=== PATIENT | male | born 1935 | race Caucasian/White ===

== ENCOUNTER → 2016-12-06 | Outpatient (CLI) | payer MEDICARE, OTHER ==
[~2016-12-06] MED LIST: ATEN-100 PO; GLYB1TAB51 PO; METF-324 PO; METO10TA PO; PROT40TA PO; [UNRECOGNIZED DRUG - OTHER] PO
[2016-12-06 09:32] LABS: HEMATOCRIT 41.7 % (39.0-51.0); MEAN CELL VOLUME 91.6 FL (80.0-100.0); MEAN CORPUSCULAR HEMOGLOBIN 30.3 PG (27.0-34.0); MEAN CORPUSCULAR HGB CONC 33.1 % (32.0-36.0); PLATELET COUNT 124 TH/MM3 (150-450); RED BLOOD COUNT 4.55 MIL/MM3 (4.50-5.90); RED CELL DISTRIBUTION WIDTH 14.6 % (11.6-17.2); REVIEW FLAG FINAL; WHITE BLOOD COUNT 6.5 TH/MM3 (4.0-11.0)
[2016-12-06 10:01] LABS: MICRO ALBUMIN RANDOM URINE RAW 21.2 MG/L (0.0-30.0)
[2016-12-06 10:17] LABS: ALKALINE PHOSPHATASE 78 U/L (45-117); ALT (GPT) 40 U/L (12-78); ANION GAP 8 MEQ/L (5-15); AST (GOT) 28 U/L (15-37); BICARBONATE 29.3 MEQ/L (21.0-32.0); BLOOD UREA NITROGEN 16 MG/DL (7-18); CHLORIDE 99 MEQ/L (98-107); GLOMERULAR FILTRATION RATE 53 ML/MIN (>89); GLUCOSE,FASTING 234 MG/DL (74-99); HDL CHOLESTEROL 50.7 MG/DL (40.0-60.0); LDL CHOLESTEROL 84 MG/DL (0-99); POTASSIUM 4.5 MEQ/L (3.5-5.1); SODIUM (NA) 136 MEQ/L (136-145); TOTAL BILIRUBIN ADULT 0.9 MG/DL (0.2-1.0)
[2016-12-06 16:30] LABS: HEMOGLOBIN A1a 1.1 %; HEMOGLOBIN Ao 76.6 %
== END ==
LOC: PLAB 06:36
PROVIDERS: ATTEND Internal Medicine
DX: E11.65 Type 2 diabetes mellitus with hyperglycemia (principal); I10 Essential (primary) hypertension; E78.5 Hyperlipidemia, unspecified
CPT/HCPCS: 36415; 80053; 80061; 82043; 83036; 85027

== ENCOUNTER → 2017-02-02 | Outpatient (CLI) | payer MEDICARE, OTHER ==
[2017-02-02 09:24] LABS: AUTOMATED NEUTROPHIL # 3.2 TH/MM3 (1.8-7.7); BASOPHIL # 0.1 TH/MM3 (0-0.2); BASOPHIL % 0.9 % (0.0-2.0); EOSINOPHIL # 0.2 TH/MM3 (0-0.4); EOSINOPHIL % 3.1 % (0.0-4.0); HEMATOCRIT 41.4 % (39.0-51.0); LYMPH % 31.7 % (9.0-44.0); LYMPHOCYTE # 1.9 TH/MM3 (1.0-4.8); MEAN CELL VOLUME 90.3 FL (80.0-100.0); MEAN CORPUSCULAR HEMOGLOBIN 29.5 PG (27.0-34.0); MEAN CORPUSCULAR HGB CONC 32.7 % (32.0-36.0); MONO % 11.1 % (0.0-8.0); NEUT % 53.2 % (16.0-70.0); PLATELET COUNT 97 TH/MM3 (150-450); RED BLOOD COUNT 4.59 MIL/MM3 (4.50-5.90); RED CELL DISTRIBUTION WIDTH 13.9 % (11.6-17.2); WHITE BLOOD COUNT 5.9 TH/MM3 (4.0-11.0)
[2017-02-02 09:26] LABS: HEMO FLAGS AUTO DIFF
[2017-02-02 10:12] LABS: PLATELET ESTIMATE SMEAR LOW (NORMAL); PLATELET MORPHOLOGY NORMAL (NORMAL); SCAN/DIFF AUTO DIFF CONFIRMED
== END ==
LOC: PLAB 07:24
PROVIDERS: ATTEND Radiology Radiation Oncology
DX: C61 Malignant neoplasm of prostate (principal)
CPT/HCPCS: 36415; 84153; 85025

== ENCOUNTER → 2017-03-23 | Outpatient (CLI) | payer MEDICARE, OTHER ==
[2017-03-23 16:54] LABS: AUTOMATED NEUTROPHIL # 4.6 TH/MM3 (1.8-7.7); BASOPHIL # 0.1 TH/MM3 (0-0.2); BASOPHIL % 0.9 % (0.0-2.0); EOSINOPHIL # 0.1 TH/MM3 (0-0.4); EOSINOPHIL % 1.3 % (0.0-4.0); HEMATOCRIT 37.6 % (39.0-51.0); HEMO FLAGS DIFF FINAL; LYMPH % 21.6 % (9.0-44.0); LYMPHOCYTE # 1.5 TH/MM3 (1.0-4.8); MEAN CELL VOLUME 92.1 FL (80.0-100.0); MEAN CORPUSCULAR HEMOGLOBIN 29.6 PG (27.0-34.0); MEAN CORPUSCULAR HGB CONC 32.1 % (32.0-36.0); NEUT % 65.2 % (16.0-70.0); PLATELET COUNT 118 TH/MM3 (150-450); RED BLOOD COUNT 4.08 MIL/MM3 (4.50-5.90); RED CELL DISTRIBUTION WIDTH 14.3 % (11.6-17.2); WHITE BLOOD COUNT 7.1 TH/MM3 (4.0-11.0)
== END ==
LOC: PLAB 14:29
PROVIDERS: ATTEND Radiology Radiation Oncology
DX: C61 Malignant neoplasm of prostate (principal)
CPT/HCPCS: 36415; 85025

== ENCOUNTER → 2017-04-04 | Outpatient (CLI) | payer MEDICARE, OTHER ==
[2017-04-04 17:07] LABS: AUTOMATED NEUTROPHIL # 3.3 TH/MM3 (1.8-7.7); BASOPHIL % 0.6 % (0.0-2.0); EOSINOPHIL # 0.1 TH/MM3 (0-0.4); EOSINOPHIL % 1.4 % (0.0-4.0); HEMO FLAGS DIFF FINAL; LYMPH % 24.3 % (9.0-44.0); LYMPHOCYTE # 1.3 TH/MM3 (1.0-4.8); MEAN CELL VOLUME 91.2 FL (80.0-100.0); MEAN CORPUSCULAR HEMOGLOBIN 29.8 PG (27.0-34.0); MEAN CORPUSCULAR HGB CONC 32.6 % (32.0-36.0); MONO % 11.4 % (0.0-8.0); NEUT % 62.3 % (16.0-70.0); PLATELET COUNT 113 TH/MM3 (150-450); RED BLOOD COUNT 3.95 MIL/MM3 (4.50-5.90); RED CELL DISTRIBUTION WIDTH 14.1 % (11.6-17.2); WHITE BLOOD COUNT 5.3 TH/MM3 (4.0-11.0)
== END ==
LOC: PLAB 14:27
PROVIDERS: ATTEND Radiology Radiation Oncology
DX: C61 Malignant neoplasm of prostate (principal)
CPT/HCPCS: 36415; 85025

== ENCOUNTER → 2017-04-18 | Outpatient (CLI) | payer MEDICARE, OTHER ==
[2017-04-18 17:23] LABS: AUTOMATED NEUTROPHIL # 3.6 TH/MM3 (1.8-7.7); BASOPHIL % 0.4 % (0.0-2.0); EOSINOPHIL # 0.1 TH/MM3 (0-0.4); EOSINOPHIL % 1.4 % (0.0-4.0); HEMATOCRIT 35.9 % (39.0-51.0); HEMO FLAGS DIFF FINAL; LYMPH % 20.2 % (9.0-44.0); LYMPHOCYTE # 1.1 TH/MM3 (1.0-4.8); MEAN CELL VOLUME 91.3 FL (80.0-100.0); MEAN CORPUSCULAR HEMOGLOBIN 30.9 PG (27.0-34.0); MEAN CORPUSCULAR HGB CONC 33.8 % (32.0-36.0); MONO % 12.3 % (0.0-8.0); NEUT % 65.7 % (16.0-70.0); PLATELET COUNT 136 TH/MM3 (150-450); RED BLOOD COUNT 3.94 MIL/MM3 (4.50-5.90); RED CELL DISTRIBUTION WIDTH 14.7 % (11.6-17.2); WHITE BLOOD COUNT 5.5 TH/MM3 (4.0-11.0)
== END ==
LOC: PLAB 14:59
PROVIDERS: ATTEND Radiology Radiation Oncology
DX: C61 Malignant neoplasm of prostate (principal)
CPT/HCPCS: 36415; 85025

== ENCOUNTER → 2017-05-03 | Outpatient (CLI) | payer MEDICARE, OTHER ==
[2017-05-03 17:37] LABS: AUTOMATED NEUTROPHIL # 2.8 TH/MM3 (1.8-7.7); BASOPHIL % 0.6 % (0.0-2.0); EOSINOPHIL # 0.1 TH/MM3 (0-0.4); EOSINOPHIL % 1.7 % (0.0-4.0); HEMATOCRIT 37.1 % (39.0-51.0); HEMO FLAGS DIFF FINAL; LYMPH % 22.5 % (9.0-44.0); MEAN CELL VOLUME 91.4 FL (80.0-100.0); MEAN CORPUSCULAR HEMOGLOBIN 30.1 PG (27.0-34.0); MONO % 11.6 % (0.0-8.0); NEUT % 63.6 % (16.0-70.0); PLATELET COUNT 130 TH/MM3 (150-450); RED BLOOD COUNT 4.06 MIL/MM3 (4.50-5.90); RED CELL DISTRIBUTION WIDTH 14.5 % (11.6-17.2); WHITE BLOOD COUNT 4.5 TH/MM3 (4.0-11.0)
== END ==
LOC: PLAB 14:19
PROVIDERS: ATTEND Radiology Radiation Oncology
DX: C61 Malignant neoplasm of prostate (principal); Z01.818 Encounter for other preprocedural examination
CPT/HCPCS: 36415; 85025

== ENCOUNTER → 2017-08-11 | Outpatient (CLI) | payer MEDICARE, OTHER | LOC: PLAB 06:50 | PROVIDERS: ATTEND Radiology Radiation Oncology | DX: C61 Malignant neoplasm of prostate (principal) | CPT/HCPCS: 36415; 84153 ==

== ENCOUNTER → 2017-12-01 | Outpatient (CLI) | payer MEDICARE, OTHER ==
[2017-12-01 10:19] LABS: HEMOGLOBIN 11.8 GM/DL (13.0-17.0); MEAN CELL VOLUME 91.1 FL (80.0-100.0); MEAN CORPUSCULAR HEMOGLOBIN 30.6 PG (27.0-34.0); MEAN CORPUSCULAR HGB CONC 33.6 % (32.0-36.0); PLATELET COUNT 137 TH/MM3 (150-450); RED BLOOD COUNT 3.85 MIL/MM3 (4.50-5.90); RED CELL DISTRIBUTION WIDTH 14.3 % (11.6-17.2); WHITE BLOOD COUNT 4.5 TH/MM3 (4.0-11.0)
[2017-12-01 10:21] LABS: BILIRUBIN, URINE NEG (NEG); BLOOD, URINE NEG (NEG); GLUCOSE,URINE 1000 mg/dL (NEG); KETONE, URINE NEG (NEG); NITRITE,URINE NEG (NEG); PH, URINE 5.5 (5.0-8.5); URINE COLOR YELLOW (YELLW/STRAW); URINE LEUKOCYTE ESTERASE NEG (NEG)
[2017-12-01 10:33] LABS: ALBUMIN 3.5 GM/DL (3.4-5.0); AST (GOT) 24 U/L (15-37); BICARBONATE 28.5 MEQ/L (21.0-32.0); BLOOD UREA NITROGEN 15 MG/DL (7-18); CALCIUM 9.8 MG/DL (8.5-10.1); CHLORIDE 100 MEQ/L (98-107); CHOLESTEROL 146 MG/DL (120-200); CREATININE 1.06 MG/DL (0.60-1.30); GLOMERULAR FILTRATION RATE 67 ML/MIN (>89); GLUCOSE,FASTING 226 MG/DL (74-99); SODIUM (NA) 135 MEQ/L (136-145)
[2017-12-01 10:39] LABS: ALKALINE PHOSPHATASE 68 U/L (45-117); ALT (GPT) 20 U/L (12-78); CHOLESTEROL/ HDL RATIO 3.63 RATIO; HDL CHOLESTEROL 40.2 MG/DL (40.0-60.0); LDL CHOLESTEROL 77 MG/DL (0-99); LDL CHOLESTEROL DIRECT 95 MG/DL (0-99); TOTAL BILIRUBIN ADULT 0.6 MG/DL (0.2-1.0); TOTAL PROTEIN 7.9 GM/DL (6.4-8.2); TRIGLYCERIDES 143 MG/DL (42-150)
[2017-12-01 16:34] LABS: HEMOGLOBIN A1C 9.4 % (4.3-6.0)
== END ==
LOC: PLAB 07:12
PROVIDERS: ATTEND Internal Medicine
DX: E11.65 Type 2 diabetes mellitus with hyperglycemia (principal); I10 Essential (primary) hypertension; Z13.9 Encounter for screening, unspecified
CPT/HCPCS: 36415; 80053; 80061; 81001; 82043; 83036; 83721; 85027

== ENCOUNTER 2018-01-06 16:24 | Emergency (ER) | payer MEDICARE, OTHER ==
[~2018-01-06] VITALS: Ht 182.9 cm; Wt 88.0 kg
[2018-01-06 16:32] VITALS: BP 124/57; PULSE 81; RESP 17; TEMP 98.6; O2SAT 95
--- NOTE | 2018-01-06 16:45 | PD ---
HPI Chief Complaint: Pain: Acute or Chronic Time Seen by Provider: 16:40 Travel History International Travel<30 days: No Contact w/Intl Traveler<30days: No Traveled to known affect area: No History of Present Illness HPI 82-year-old male presents to emergency department for evaluation of right rib pain persisting after a fall that occurred 2 weeks ago. Patient is followed up with his primary care provider and identified a ninth rib fracture. He denies any new injury. No hemoptysis. No shortness of breath. Pain is worse when he lies down. He states that the pain medication his physician gave him does work however he is unable to sleep at night. He has no other symptoms to report. PFSH Past Medical History Arthritis: No Autoimmune Disease: No Cancer: No Cardiovascular Problems: No High Cholesterol: No Chemotherapy: Yes Diabetes: Yes Patient Takes Glucophage: Yes Diminished Hearing: No Endocrine: No GERD: Yes Genitourinary: No Hiatal Hernia: Yes Immune Disorder: No Musculoskeletal: No Neurologic: No Psychiatric: No Reproductive: No Respiratory: No Pneumonia: Yes Thyroid Disease: No Ulcer: No Past Surgical History Abdominal Surgery: No Cardiac Surgery: No Ear Surgery: No Endocrine Surgery: No Eye Surgery: No Genitourinary Surgery: No Gynecologic Surgery: No Oral Surgery: No Thoracic Surgery: No Other Surgery: Yes Social History Alcohol Use: No Tobacco Use: No Substance Use: No Allergies-Medications (Allergen,Severity, Reaction): Coded Allergies: No Known Allergies (Unverified Adverse Reaction, Unknown, 01/06/18) Reported Meds & Prescriptions Reported Meds & Active Scripts Active Reported Atenolol 25 Mg Tab 25 Mg PO DAILY Protonix (Pantoprazole Sodium) 40 Mg Tab 40 Mg PO DAILY Actos (Pioglitazone HCl) 45 Mg Tab 45 Mg PO DAILY Januvia (Sitagliptin Phosphate) 100 Mg Tab 100 Mg PO DAILY Metformin (Metformin HCl) 1,000 Mg Tab 1,000 Mg PO BIDPC Review of Systems Except as stated in HPI: all other systems reviewed are Neg Physical Exam Narrative GENERAL: Well-nourished, well-developed elderly male patient in no acute distress SKIN: Focused skin assessment warm/dry. HEAD: Normocephalic. EYES: No scleral icterus. No injection or drainage. NECK: Supple, trachea midline. No JVD or lymphadenopathy. CARDIOVASCULAR: Regular rate and rhythm RESPIRATORY: Breath sounds equal bilaterally. No accessory muscle use. Diminished. Pain with deep inspiration. Tenderness elicited palpation over the right lateral rib cage. No crepitus. No obvious deformities. GASTROINTESTINAL: Abdomen soft, non-tender, nondistended. MUSCULOSKELETAL: No cyanosis, or edema. BACK: Nontender without obvious deformity. No CVA tenderness. Data Data Last Documented VS Vital Signs Date Time Temp Pulse Resp B/P (MAP) Pulse Ox O2 Delivery O2 Flow Rate FiO2 01/06/18 16:32 98.6 81 17 124/57 (79) 95 Orders Orders Ketorolac Inj (Toradol Inj) (01/06/18 17:00) Orphenadrine Inj (Norflex Inj) (01/06/18 17:00) Ed Discharge Order (01/06/18 17:11) [facility] Medical Decision Making Medical Screen Exam Complete: Yes Emergency Medical Condition: Yes Medical Record Reviewed: Yes Differential Diagnosis Rib fracture versus contusion versus pleuritic pain versus costochondritis Narrative Course 82-year-old male presents to [facility] department for evaluation of pain following a right rib fracture that occurred 2 weeks ago following a fall. I have reviewed the x-ray imaging that was done a poor warning itching. He does have the report with him. Patient has no new injury he is just requested something additional for pain. Pain control is provided. He is discharged home. I've encouraged him to continue pain control as already prescribed. He agrees to return immediately with any acute worsening symptoms. Diagnosis Primary Impression: Right rib fracture Qualified Codes: S22.31XA - Fracture of one rib, right side, initial encounter for closed fracture Referrals: Primary Care Physician Patient Instructions: General Instructions, Rib Fracture (ED) Additional Instructions: Is important that you take deep breaths and cough Follow-up with a primary care provider Continue pain control as already prescribed Return immediately with any acute worsening of symptoms Med/Other Pt SpecificInfo: No Change to Meds Disposition: 01 DISCHARGE HOME Condition: Stable MistryBrandon huttonshabbir HOWARD Jan 06, 2018 16:45
[2018-01-06] MEDS ORDERED: METF1000 PO (16:46)
[2018-01-06] MEDS ORDERED: ACTO45TA15 PO (16:46)
[2018-01-06] MEDS ORDERED: PROT40TA PO (16:46)
[2018-01-06] MEDS ORDERED: SITA1TAB2 PO (16:46)
[2018-01-06] MEDS ORDERED: ATEN25TA PO (16:46)
[2018-01-06] MEDS ORDERED: KETOROLAC TROMETHAMINE 60 MG/2 ML (IM) VIAL IM ONE (17:00)
[2018-01-06] MEDS ORDERED: ORPHENADRINE INJ 60 MG/2 ML AMP IM ONE (17:00)
== END 2018-01-06 17:30 | disposition home or self-care (01) ==
LOC: PHEFT 16:24
DX: S22.31XA Fracture of one rib, right side, initial encounter for closed fracture (principal); E11.9 Type 2 diabetes mellitus without complications; K21.9 Gastro-esophageal reflux disease without esophagitis; Z79.84 Long term (current) use of oral hypoglycemic drugs; Z87.39 Personal history of other diseases of the musculoskeletal system and connective tissue; W19.XXXA Unspecified fall, initial encounter
CPT/HCPCS: 96372; 99284; J1885; J2360

== ENCOUNTER → 2018-02-13 | Outpatient (CLI) | payer MEDICARE, OTHER ==
[~2018-02-13] MED LIST changes: +ACTO45TA15 PO; -ATEN-100 PO; +ATEN25TA PO; -GLYB1TAB51 PO; -METF-324 PO; +METF1000 PO; -METO10TA PO; +SITA1TAB2 PO; -[UNRECOGNIZED DRUG - OTHER] PO
== END ==
LOC: PLAB 14:07
DX: C61 Malignant neoplasm of prostate (principal)
CPT/HCPCS: 36415; 84153

== ENCOUNTER 2018-08-02 03:07 | Inpatient (IN) ==
[2018-08-02 03:46] LABS: Baso # (Auto) 0.1 th/mm3 (0.0-0.2); Baso % (Auto) 2.6 % (0.0-2.0); Eos # (Auto) 0.1 th/mm3 (0.0-0.4); Eos % (Auto) 1.3 % (0.0-4.0); Hematocrit 21.9 % (39.0-51.0); Hemoglobin 7.1 gm/dL (13.0-17.0); Lymph # (Auto) 1.1 th/mm3 (1.0-4.8); Lymph % (Auto) 18.7 % (9.0-44.0); Mean Corpuscular HGB Conc 32.5 % (32.0-36.0); Mean Corpuscular Volume 83.2 fL (80.0-100.0); Mono # (Auto) 0.6 th/mm3 (0.0-0.9); Mono % (Auto) 10.6 % (0.0-8.0); Neut # (Auto) 3.8 th/mm3 (1.8-7.7); Neut % (Auto) 66.8 % (16.0-70.0); Red Blood Count 2.63 mil/mm3 (4.50-5.90); White Blood Count 5.7 th/mm3 (4.0-11.0)
[2018-08-02 03:50] LABS: Platelet Count 7 th/mm3 (150-450)
[2018-08-02 03:53] LABS: Activated Partial Thrombo Time 24.3 sec (24.3-30.1); INR 1.2 Ratio; Prothrombin Time 12.1 sec (9.8-11.6)
[2018-08-02] MEDS ORDERED: Sodium Chlor 0.9% Inj 250 ML IV.SIG SCH ×2 (04:00)
[2018-08-02] MEDS ORDERED: Pantoprazole Inj 40 MG Vial IV.PUSH ONE (04:01)
[2018-08-02 04:06] LABS: Baso % (Auto) 0.5 % (0.0-2.0); Eos # (Auto) 0.1 th/mm3 (0.0-0.4); Hematocrit 21.3 % (39.0-51.0); Hemoglobin 7.1 gm/dL (13.0-17.0); Lymph # (Auto) 1.2 th/mm3 (1.0-4.8); Lymph % (Auto) 17.8 % (9.0-44.0); Mean Corpuscular HGB Conc 33.3 % (32.0-36.0); Mean Corpuscular Hemoglobin 27.8 pg (27.0-34.0); Mean Corpuscular Volume 83.4 fL (80.0-100.0); Mono # (Auto) 0.8 th/mm3 (0.0-0.9); Mono % (Auto) 11.6 % (0.0-8.0); Neut # (Auto) 4.6 th/mm3 (1.8-7.7); Neut % (Auto) 69.1 % (16.0-70.0); Platelet Count 3 th/mm3 (150-450); Red Blood Count 2.55 mil/mm3 (4.50-5.90); Red Cell Distribution Width 21.2 % (11.6-17.2)
--- NOTE | 2018-08-02 04:07 | ED ---
HPI General Chief complaint: GI Bleed Stated complaint: bleeding Time Seen by Provider: 08/02/18 03:11 History of Present Illness HPI narrative: Patient 83-year-old male presents emergency department for bright red blood per rectum for the past few days. Patient states is never happened to him before. Denies ever having a colonoscopy. Denies any blood thinner use, specifically denied any Xarelto or Pradaxa Eliquis heparin Lovenox or warfarin use. Further history the patient recently went to his primary care physician for checkup had blood work which showed several abnormalities and according to him "was referred to 3 other physicians". Patient fairly convoluted in his history, he cannot tell me what special to these 3 physicians are. He does also has a history of prostate cancer and had been on testosterone suppression medications for this in the past but has not been on them since April according to him. Denies a history of TTP or ITP. Symptoms severe, for the past few days, associated signs symptoms in context as above. Related Data Home Medications Medication Instructions Recorded Confirmed atenolol 25 mg PO DAILY 08/02/18 08/02/18 chlorpheniramine maleate 4 mg PO Q4H 08/02/18 08/02/18 [Chlor-Trimeton] metformin 1,000 mg PO BID 08/02/18 08/02/18 pantoprazole [Protonix] 40 mg PO DAILY 08/02/18 08/02/18 pioglitazone [Actos] 45 mg PO DAILY 08/02/18 08/02/18 sitagliptin [Januvia] 100 mg PO DAILY 08/02/18 08/02/18 tamsulosin 0.4 mg PO DAILY 08/02/18 08/02/18 Allergies Allergy/AdvReac Type Severity Reaction Status Date / Time No Known Allergies Allergy Verified 08/02/18 03:15 Review of Systems ROS: all other systems reviewed are negative [facility] Medical History Medical History Diabetes mellitus (Acute) Psoriasis (Acute) Tibia/fibula fracture (Acute) Social History Social History Substance History: No History of Abuse Second Hand Smoke Exposure: No Smoking Status: Never smoker How Often Do You Have a Drink Containing Alcohol: Never Recent Travel in [facility] within the Last 8 Weeks: No Immunization History Tetanus Immunization: >5 Years Exam Narrative Exam Narrative: GENERAL: Well-developed pale appearing male. SKIN: Focused skin assessment warm/dry. HEAD: Atraumatic. Normocephalic. EYES: Pupils equal and round. No scleral icterus. No injection or drainage. Significant conjunctival pallor. ENT: No nasal bleeding or discharge. Mucous membranes pink and moist. NECK: Trachea midline. No JVD. CARDIOVASCULAR: Regular rate and rhythm. No murmur appreciated. RESPIRATORY: No accessory muscle use. Clear to auscultation. Breath sounds equal bilaterally. GASTROINTESTINAL: Abdomen soft, non-tender, nondistended. Hepatic and splenic margins not palpable. Rectal exam shows gross blood without hemorrhoid or fissure, this blood is very loose and almost has a consistency of water. MUSCULOSKELETAL: No obvious deformities. No clubbing. No cyanosis. No edema. NEUROLOGICAL: Awake and alert. No obvious cranial nerve deficits. Motor grossly within normal limits. Normal speech. PSYCHIATRIC: Appropriate mood and affect; insight and judgment normal. Course Initial Documented Vital Signs Pulse Rate 85 08/02/18 03:15 Respiratory Rate 18 08/02/18 03:15 Blood Pressure 120/59 L 08/02/18 03:15 Pulse Oximetry 96 08/02/18 03:15 Last Documented Vital Signs Pulse Rate 81 08/02/18 04:38 Respiratory Rate 18 08/02/18 04:38 Blood Pressure 77/35 L 08/02/18 04:38 Pulse Oximetry 99 08/02/18 04:38 Critical Care Time Critical Care Time: Yes Total Critical Care Time: 35 Attestation: Aggregate critical care time was 35 minutes. Time to perform other separately billable procedures was not included in the critical care time. My time did not include minutes spent treating any other patients simultaneously or on activities that did not directly contribute to the patient's treatment. The services I provided to this patient were to treat and/or prevent clinically significant deterioration that could result in: , disability, organ failure I provided critical care services requiring my management, as noted below: Chart data review, documentation time, medication orders and management, vital sign assessments/reviewing monitor data, ordering and reviewing lab tests, ordering and interpreting/reviewing x-rays and diagnostic studies, care of the patient and discussion of the patient with the admitting physicians. Medical Decision Making MDM Narrative Medical decision making narrative: Patient room in the emergency department, blood pressure 120/59 on arrival, gross blood on rectal exam very loose watery blood. Patient initially hypotensive prior to arrival blood pressure is 80/50, after liter of fluid prior to arrival by EVAC the patient's blood pressure now 120/59. Laboratory abnormalities notable for a platelet count of 7000, hemoglobin of 7.1. These are critical levels and a 6 pack of platelets as well as 2 PRBCs now and 2 in reserve been ordered, Protonix as well as Protonix drip , octreotide. I explained to the patient that these are critical findings if not life-threatening findings and that he needs emergent admission to the ICU and further workup and will ultimately need colonoscopy consultation with hematology oncology and he is agreeable. Of note the patient does have a history of prostate cancer, he has been on Firmagon from his urology/oncologist. He recently went to his primary care physician Dr. Mace and had lab work and was referred to 3 additional physicians and the patient states he did not go. Patient was discussed at length with Dr. Boateng who agrees for ICU admission. He is becoming somewhat hypotensive at the time of consultation with Dr. Boateng who recommended 25 g 25% albumin with continued fluid resuscitation. This is ordered by me. Patient was seen by Dr. Boateng and we agree that it is the patient does not have any generalized bruising. After his consultation the patient is continued to be hypotensive, fluid, albumin, RBC and platelet resuscitation on process. Patient is critically ill, prognosis is guarded. This was discussed with him. Dr. Boateng his place consultation to hematology, I have attempted to page and after several pages no one has returned the call. Further history with the is that the patient also had a slip and fall, patient adamantly denies any head injury still with a platelet count of 3k intracranial hemorrhage is a possibility CT head is been ordered, CT abdomen is also been ordered. Medical Screen Exam Complete: Yes Emergency Medical Condition: Yes Lab Data Result diagrams: 08/02/18 04:00 08/02/18 04:15 Lab Results 08/02/18 08/02/18 08/02/18 Range/Units 02:35 02:35 02:35 WBC 5.7 (4.0-11.0) th/mm3 RBC 2.63 L (4.50-5.90) mil/mm3 Hgb 7.1 L (13.0-17.0) gm/dL Hct 21.9 L (39.0-51.0) % MCV 83.2 (80.0-100.0) fL MCH 27.0 (27.0-34.0) pg MCHC 32.5 (32.0-36.0) % RDW 21.0 H (11.6-17.2) % Plt Count 7 L* (150-450) th/mm3 MPV 10.0 (7.0-11.0) fL Prelim Diff (Auto) Slide review pending Neut % (Auto) 66.8 (16.0-70.0) % Lymph % (Auto) 18.7 (9.0-44.0) % Edwards % (Auto) 10.6 H (0.0-8.0) % Eos % (Auto) 1.3 (0.0-4.0) % Baso % (Auto) 2.6 H (0.0-2.0) % Neut # (Auto) 3.8 (1.8-7.7) th/mm3 Lymph # (Auto) 1.1 (1.0-4.8) th/mm3 Edwards # (Auto) 0.6 (0.0-0.9) th/mm3 Eos # (Auto) 0.1 (0.0-0.4) th/mm3 Baso # (Auto) 0.1 (0.0-0.2) th/mm3 WBC Differential . Diff Scan Auto diff confirmed Differential Comment . Platelet Estimate Rare L (Normal) Platelet Morphology Enlarged H (Normal) PT 12.1 H (9.8-11.6) sec INR 1.2 Ratio APTT 24.3 (24.3-30.1) sec Sodium (136-145) meq/L Potassium (3.5-5.1) meq/L Chloride (98-107) meq/L Carbon Dioxide (21.0-32.0) meq/L Anion Gap (5-15) meq/L BUN (7-18) mg/dL Creatinine (0.60-1.30) mg/dL Estimated GFR (>89) mL/min Random Glucose (74-106) mg/dL Calcium (8.5-10.1) mg/dL Total Bilirubin (0.2-1.0) mg/dL AST (15-37) U/L ALT (12-78) U/L Alkaline Phosphatase (45-117) U/L Total Protein (6.4-8.2) g/dL Albumin (3.4-5.0) g/dL Blood Type O Positive Blood Type Recheck Required Antibody Screen Negative MTS Gel Crossmatch Bld Prod Order Comment 08/02/18 08/02/18 08/02/18 Range/Units 03:51 04:00 04:15 WBC 6.6 (4.0-11.0) th/mm3 RBC 2.55 L (4.50-5.90) mil/mm3 Hgb 7.1 L (13.0-17.0) gm/dL Hct 21.3 L (39.0-51.0) % MCV 83.4 (80.0-100.0) fL MCH 27.8 (27.0-34.0) pg MCHC 33.3 (32.0-36.0) % RDW 21.2 H (11.6-17.2) % Plt Count 3 L* D (150-450) th/mm3 MPV 12.0 H (7.0-11.0) fL Prelim Diff (Auto) Slide review pending Neut % (Auto) 69.1 (16.0-70.0) % Lymph % (Auto) 17.8 (9.0-44.0) % Edwards % (Auto) 11.6 H (0.0-8.0) % Eos % (Auto) 1.0 (0.0-4.0) % Baso % (Auto) 0.5 (0.0-2.0) % Neut # (Auto) 4.6 (1.8-7.7) th/mm3 Lymph # (Auto) 1.2 (1.0-4.8) th/mm3 Edwards # (Auto) 0.8 (0.0-0.9) th/mm3 Eos # (Auto) 0.1 (0.0-0.4) th/mm3 Baso # (Auto) 0.0 (0.0-0.2) th/mm3 WBC Differential Diff Scan Differential Comment . Platelet Estimate (Normal) Platelet Morphology (Normal) PT (9.8-11.6) sec INR Ratio APTT (24.3-30.1) sec Sodium 138 (136-145) meq/L Potassium 4.4 (3.5-5.1) meq/L Chloride 103 (98-107) meq/L Carbon Dioxide 23.8 (21.0-32.0) meq/L Anion Gap 11 (5-15) meq/L BUN 22 H (7-18) mg/dL Creatinine 1.33 H (0.60-1.30) mg/dL Estimated GFR 51 L (>89) mL/min Random Glucose 273 H (74-106) mg/dL Calcium 8.1 L (8.5-10.1) mg/dL Total Bilirubin 0.5 (0.2-1.0) mg/dL AST 21 (15-37) U/L ALT 19 (12-78) U/L Alkaline Phosphatase 59 (45-117) U/L Total Protein 6.0 L (6.4-8.2) g/dL Albumin 2.7 L (3.4-5.0) g/dL Blood Type Blood Type Recheck Antibody Screen MTS Gel Crossmatch Bld Prod Order Comment 08/02/18 Range/Units 04:15 WBC (4.0-11.0) th/mm3 RBC (4.50-5.90) mil/mm3 Hgb (13.0-17.0) gm/dL Hct (39.0-51.0) % MCV (80.0-100.0) fL MCH (27.0-34.0) pg MCHC (32.0-36.0) % RDW (11.6-17.2) % Plt Count (150-450) th/mm3 MPV (7.0-11.0) fL Prelim Diff (Auto) Neut % (Auto) (16.0-70.0) % Lymph % (Auto) (9.0-44.0) % Edwards % (Auto) (0.0-8.0) % Eos % (Auto) (0.0-4.0) % Baso % (Auto) (0.0-2.0) % Neut # (Auto) (1.8-7.7) th/mm3 Lymph # (Auto) (1.0-4.8) th/mm3 Edwards # (Auto) (0.0-0.9) th/mm3 Eos # (Auto) (0.0-0.4) th/mm3 Baso # (Auto) (0.0-0.2) th/mm3 WBC Differential Diff Scan Differential Comment Platelet Estimate (Normal) Platelet Morphology (Normal) PT (9.8-11.6) sec INR Ratio APTT (24.3-30.1) sec Sodium (136-145) meq/L Potassium (3.5-5.1) meq/L Chloride (98-107) meq/L Carbon Dioxide (21.0-32.0) meq/L Anion Gap (5-15) meq/L BUN (7-18) mg/dL Creatinine (0.60-1.30) mg/dL Estimated GFR (>89) mL/min Random Glucose (74-106) mg/dL Calcium (8.5-10.1) mg/dL Total Bilirubin (0.2-1.0) mg/dL AST (15-37) U/L ALT (12-78) U/L Alkaline Phosphatase (45-117) U/L Total Protein (6.4-8.2) g/dL Albumin (3.4-5.0) g/dL Blood Type Blood Type Recheck Antibody Screen MTS Gel Crossmatch See Detail Bld Prod Order Comment Discharge Plan Discharge Disposition Patient Disposition: 30 Still Patient Discharge Condition Condition: Critical Discharge Details Diagnosis: Hematochezia, Lower gastrointestinal hemorrhage, Anemia, Acute hypotension, Thrombocytopenia, Acute GI bleeding Physicians Team ED Provider: Mata Boone Primary Care Provider: UNKNOWN, Attending Provider: Handy Boateng Other Providers: Benedicto Emery ; Car Doherty Discharge Interventions Interventions: Vital Signs Last Done: 08/02/18 03:22 Status ED Status: Admitted Patient
[2018-08-02 04:12] LABS: White Blood Count 6.6 th/mm3 (4.0-11.0)
[2018-08-02] MEDS ORDERED: Albumin Human 25% Inj 100 ML IV.SIG ONE (04:15)
[2018-08-02] MEDS ORDERED: Bisacodyl 10 MG Supp RECTAL PRN (04:18)
[2018-08-02 04:19] LABS: Platelet Estimate Rare (Normal)
[2018-08-02] MEDS ORDERED: Dextrose 50% in Water 50 ML Vial IV.PUSH PRN (04:26)
--- NOTE | 2018-08-02 04:26 | P.HPCC ---
History of Present Illness Primary Care Physician: UNKNOWN History of Present Illness: 83-year-old very pleasant gentleman with history of prostate cancer on hormonal therapy with the last course received in end of May, presents with generalized weakness and gross blood on rectal exam with very loose watery blood. Patient initially was hypotensive prior to arrival with the blood pressure 80/50, after liter of fluid prior to arrival by EVAC the patient's blood pressure now 120/59. Laboratory abnormalities notable for a platelet count of 7000, hemoglobin of 7.1. These are critical levels and a 6 pack of platelets as well as 2 PRBCs now and 2 in reserve been ordered by ED attending, as well as Protonix drip, and octreotide. The patient does have a history of prostate cancer, he has been on Firmagon from his urology/oncologist. Inpatient Certification: I certify that the inpatient services were ordered in accordance with Medicare regulations governing the order. This includes certification that hospital inpatient services are reasonable and necessary and in the case of services not specified as inpatient-only under 42 CFR 419.22(n), that they are appropriately provided as inpatient services in accordance to with the 2-midnight benchmark under 43 CFR 412.3(e) Estimated Total Length of Stay (Days): 5 Plans for Post Hospital Care: Not yet determined Review of Systems All other systems reviewed negative except as stated in HPI PMFSH - History History Provided By: Patient - Medical History Medical History: Medical History (Last Reviewed 08/02/18 @ 08:40 by Jorge Griggs) Diabetes mellitus Psoriasis Tibia/fibula fracture - Tobacco History Second Hand Smoke Exposure: No Smoking Status: Never smoker - Alcohol History How Often Do You Have a Drink Containing Alcohol: Never - Substance Use History Substance History: No History of Abuse - Travel History [facility] Within the Last 8 Weeks: No - Immunization History Tetanus Immunization: >5 Years Medications and Allergies Active Medications: Active Medications Acetaminophen (Tylenol) 650 mg PO Q6H PRN PRN Reason: PAIN 1-10 AND/OR FEVER >101F Al Hydroxide/Mg Hydroxide (Milk Of Magnesia Liq) 30 ml PO Q12H PRN PRN Reason: Mild Constipation Albuterol (Duoneb Neb (Prn)) 1 ampul NEB Q2HR NEB PRN PRN Reason: WHEEZING Bisacodyl (Dulcolax Supp) 10 mg RECTAL DAILY PRN PRN Reason: SEVERE CONSITIPATION Chlorhexidine Gluconate (Chlorhexidine 2% Cloth) 3 pack TOPICAL DAILY@0400 MERON Stop: 08/08/18 03:59 Chlorhexidine Gluconate (Chlorhexidine 2% Cloth) 3 pack TOPICAL DAILY@0400 PRN PRN Reason: Extra cloth needed Stop: 08/08/18 03:59 Sodium Chloride (Ns Inj) 250 mls @ 15 mls/hr IV.SIG ONCE MERON Stop: 08/02/18 20:39 Sodium Chloride (Ns Inj) 250 mls @ 15 mls/hr IV.SIG ONCE MERON Stop: 08/02/18 20:39 Pantoprazole Sodium 80 mg/ (Sodium Chloride) 100 mls @ 10 mls/hr IV.CONT CONT MERON Albumin Human (Flexbumin 25% Inj) 100 mls @ 60 mls/hr IV.SIG ONCE ONE Stop: 08/02/18 05:54 Sodium Chloride (Ns Inj) 1,000 mls @ 125 mls/hr IV.CONT .Q8H [facility] Lactulose (Lactulose Liq) 30 ml PO DAILY PRN PRN Reason: SEVERE CONSITIPATION Morphine Sulfate (Morphine Inj) 2 mg IV.PUSH Q2H PRN PRN Reason: PAIN SCALE 6 TO 10 Ondansetron HCl (Zofran Inj) 4 mg IV.PUSH Q6H PRN PRN Reason: NAUSEA OR VOMITING Pantoprazole Sodium (Protonix Inj) 40 mg IV.PUSH Q12H [facility] Senna/Docusate Sodium (Lisa-Colace) 1 tab PO BID [facility] Sennosides (Senokot) 17.2 mg PO Q12H PRN PRN Reason: Moderate Constipation Sodium Chloride (Ns Flush) 2 ml IV.FLUSH PRN PRN PRN Reason: FLUSH AFTER USING IV ACCESS Sodium Chloride (Ns Flush) 2 ml IV.FLUSH BID MERON Sodium Chloride (Ns Flush) 2 ml IV.FLUSH PRN PRN PRN Reason: FLUSH AFTER USING IV ACCESS Tamsulosin HCl (Flomax) 0.4 mg PO DAILY [facility] Allergies Allergy/AdvReac Type Severity Reaction Status Date / Time No Known Allergies Allergy Verified 08/02/18 03:15 Home Medications Medication Instructions Recorded Confirmed Type atenolol 25 mg PO DAILY 08/02/18 08/02/18 History chlorpheniramine maleate 4 mg PO Q4H 08/02/18 08/02/18 History [Chlor-Trimeton] metformin 1,000 mg PO BID 08/02/18 08/02/18 History pantoprazole [Protonix] 40 mg PO DAILY 08/02/18 08/02/18 History pioglitazone [Actos] 45 mg PO DAILY 08/02/18 08/02/18 History sitagliptin [Januvia] 100 mg PO DAILY 08/02/18 08/02/18 History tamsulosin 0.4 mg PO DAILY 08/02/18 08/02/18 History Results - Labs CBC & Chem 7: 08/02/18 16:03 08/02/18 09:55 Labs: Short CBC 08/02/18 08/02/18 Range/Units 02:35 04:00 WBC 5.7 6.6 (4.0-11.0) th/mm3 Hgb 7.1 L 7.1 L (13.0-17.0) gm/dL Hct 21.9 L 21.3 L (39.0-51.0) % Plt Count 7 L* 3 L* D (150-450) th/mm3 Exam Vital signs: Vital Signs 08/02/18 03:15 08/02/18 03:22 Pulse Rate 85 Respiratory Rate 18 18 Blood Pressure 120/59 L 120/59 L Pulse Oximetry 96 99 Intake & Output 08/01/18 08/01/18 08/02/18 06:59 18:59 06:59 Weight 84.822 kg - Constitutional mild distress, chronically ill appearing - Routine HEENT Exam Head: Present: normocephalic, atraumatic Eye: Present: PERRL, normal accommodation ENT: Present: mucous membranes moist - Routine Neck Exam Present: supple, full ROM. Absent: JVD, carotid bruit - Routine Respiratory Exam Absent: accessory muscle use, stridor, wheezes, crackles - Routine Cardiovascular Exam Present: RRR, S1, S2 - Routine Abdominal Exam Present: soft, normoactive bowel sounds. Absent: tenderness - Routine Extremities Exam Absent: cyanosis, clubbing, edema - Routine Skin Exam Present: intact, dry, pallor. Absent: erythema - Routine Neurological Exam Present: alert, oriented X3 Septic Shock Reassessment Septic shock perfusion: reassessment completed Caprini VTE Risk Assessment Caprini VTE Risk Assessment: No/Low Risk (score <= 1) Caprini Risk Assessment Model: Point Value = 1 Point Value = 2 Point Value = 3 Point Value = 5 Age 41-60 Minor surgery BMI > 25 kg/m2 Swollen legs Varicose veins or History of unexplained or recurrent spontaneous Oral contraceptives or hormone replacement Sepsis (< 1 month) Serious lung disease, including pneumonia (< 1 month) Abnormal pulmonary function Acute myocardial infarction Congestive heart failure (< 1 month) History of inflammatory bowel disease Medical patient at bed rest Age 61-74 Arthroscopic surgery Major open surgery (> 45 min) Laparoscopic surgery (> 45 min) Malignancy Confined to bed (> 72 hours) Immobilizing plaster cast Central venous access Age >= 75 History of VTE Family history of VTE Factor V Leiden Prothrombin [id number] Lupus anticoagulant Anticardiolipin antibodies Elevated serum homocysteine Heparin-induced thrombocytopenia Other congenital or acquired thrombophilia Stroke (< 1 month) Elective arthroplasty Hip, pelvis, or leg fracture Acute spinal cord injury (< 1 month) Prophylaxis Regimen: Total Risk Factor Score Risk Level Prophylaxis Regimen 0-1 Low Early ambulation 2 Moderate Order ONE of the following: *Sequential Compression Device (SCD) *Heparin 5000 units SQ BID 3-4 Higher Order ONE of the following medications: *Heparin 5000 units SQ TID *Enoxaparin/Lovenox 40 mg SQ daily (WT < 150 kg, CrCl > 30 mL/min) *Enoxaparin/Lovenox 30 mg SQ daily (WT < 150 kg, CrCl > 10-29 mL/min) *Enoxaparin/Lovenox 30 mg SQ BID (WT < 150 kg, CrCl > 30 mL/min) AND/OR *Sequential Compression Device (SCD) 5 or more Highest Order ONE of the following medications: *Heparin 5000 units SQ TID (Preferred with Epidurals) *Enoxaparin/Lovenox 40 mg SQ daily (WT < 150 kg, CrCl > 30 mL/min) *Enoxaparin/Lovenox 30 mg SQ daily (WT < 150 kg, CrCl > 10-29 mL/min) *Enoxaparin/Lovenox 30 mg SQ BID (WT < 150 kg, CrCl > 30 mL/min) AND *Sequential Compression Device (SCD) Assessment and Plan - Assessment and Plan Plan: 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
[2018-08-02] MEDS: Sod Chloride 0.9% Inj 1,000 ML IV.CONT SCH ×2 (04:34→13:06)
[2018-08-02] MEDS: Pantoprazole Inj 40 MG Vial IV.PUSH SCH ×2 (04:36→17:15)
[2018-08-02 04:53] LABS: Alanine Aminotransferase 19 U/L (12-78); Albumin 2.7 g/dL (3.4-5.0); Anion Gap 11 meq/L (5-15); Aspartate Aminotransferase 21 U/L (15-37); Blood Urea Nitrogen 22 mg/dL (7-18); Calcium 8.1 mg/dL (8.5-10.1); Carbon Dioxide 23.8 meq/L (21.0-32.0); Chloride 103 meq/L (98-107); Glomerular Filtration Rate 51 mL/min (>89); Glucose,Random 273 mg/dL (74-106); Potassium 4.4 meq/L (3.5-5.1); Sodium 138 meq/L (136-145)
[2018-08-02 04:56] LABS: Alkaline Phosphatase 59 U/L (45-117)
[2018-08-02] MEDS ORDERED: Pantoprazole Inj 80 MG in Sodium Chlor 0.9% Inj 100 ML IV.CONT SCH (05:00)
[2018-08-02 05:42] LABS: Platelet Estimate Rare (Normal)
[2018-08-02] MEDS ORDERED: MethylPREDNISolone Sod Succinate Inj 125 MG/2 ML Vial IV.PUSH ONE (06:00)
--- NOTE | 2018-08-02 06:36 | CT ---
EXAM DATE: 08/02/2018 4:04 AM EDT AGE/SEX: 83 years / Male INDICATIONS: Fall. Cephalgia. CLINICAL DATA: This is the patient's initial encounter. Patient reports that signs and symptoms have been present for 1 day and indicates a pain score of 4/10. MEDICAL/SURGICAL HISTORY: Dementia. Carcinoma, prostatic. None. RADIATION DOSE: 66.34 CTDI (mGy) COMPARISON: No prior exams available for comparison. TECHNIQUE: CT of the head without contrast. Using automated exposure control and adjustment of the mA and/or kV according to patient size, radiation dose was kept as low as reasonably achievable to ob tain optimal diagnostic quality images. DICOM format image data is available electronically for revi ew and comparison. FINDINGS: Cerebrum: There is mild generalized atrophy and ventricles are normal given the degree of atrophy. M ild periventricular white matter change is present. No midline shift, mass lesion, hemorrhage or acu te infarction. No extraaxial fluid collections are seen. Posterior Fossa: The cerebellum and brainstem demonstrate no acute abnormality. The 4th ventricle is midline. The cerebellopontine angle is within normal limits. Extracranial: The visualized sinuses are clear. Skull: The calvaria is intact. No skull fracture. CONCLUSION: No acute intracranial abnormality is identified. . Electronically signed by: Noah Trevizo MD 08/02/2018 6:35 AM EDT
--- NOTE | 2018-08-02 06:43 | CT ---
EXAM DATE: 08/02/2018 4:04 AM EDT AGE/SEX: 83 years / Male INDICATIONS: Blood in stool. CLINICAL DATA: This is the patient's initial encounter. Patient reports that signs and symptoms have been present for 4 - 6 days and indicates a pain score of 0/10. MEDICAL/SURGICAL HISTORY: Diabetes. Carcinoma, prostatic. None. RADIATION DOSE: 9.63 CTDI (mGy) COMPARISON: COMP, CT ABDOMEN AND PELVIS W/O CONTRAST, 12/02/2016. . TECHNIQUE: Multiple contiguous axial images were obtained through the abdomen. Images were obtained using multiple row detector helical technique. Using automated exposure control and adjustment of the mA and/or kV according to patient size, radiation dose was kept as low as reasonably achievable to o btain optimal diagnostic quality images. DICOM format image data is available electronically for rev iew and comparison. FINDINGS: Lower chest: There is mild atelectasis at the lung bases. Hepatobiliary: Liver demonstrates a nodular contour characteristic of cirrhosis. No focal lesion is s een on this noncontrast examination. There are innumerable small high density stones in the gallbladd er. No gallbladder wall thickening or inflammation is present. No bile duct dilatation is present. Kidneys: No hydronephrosis, stone, or mass. There is an exophytic complex cystic lesion arising from the lower pole the left kidney measuring 6.5 x 5.1 cm, stable from the prior examination. It contains septations and calcification. Adrenal Glands: Within normal limits. Spleen: Within normal limits. Pancreas: Within normal limits. Vascular: The aorta is nonaneurysmal. There is severe atherosclerotic disease. Bowel/Mesentery: The stomach and small bowel demonstrate no acute finding. A small hiatal hernia is p resent. There is sigmoid diverticulosis. Circumferential rectal wall thickening is present without si gnificant surrounding inflammation. There is no free air or free fluid. Abdominal Wall: There is a small fat-containing umbilical hernia. Retroperitoneum: No lymphadenopathy. Bladder: No wall thickening or mass. Reproductive: Fiducial markers are present within the prostate gland. Inguinal: No lymphadenopathy or hernia. Musculoskeletal: No acute osseous abnormality is identified. There are degenerative changes of the olaf mbar spine. Old ununited fractures are visualized in the right lateral ninth and 10th ribs. CONCLUSION: 1. 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 2. Nonacute findings include severe atherosclerotic disease, cholelithiasis, stable complex cystic l esion of the left kidney measuring 6.5 cm, and cirrhotic liver. Electronically signed by: Noah Trevizo MD 08/02/2018 6:42 AM EDT
[2018-08-02 08:04] LABS: D-Dimer 0.74 mg/L FEU (0.00-0.50)
[2018-08-02] MEDS: Senna/Docusate Sodium 8.6/50 MG Tablet PO SCH ×2 (08:09→20:02)
[2018-08-02] MEDS: Insulin NovoLOG Aspart Correctional Sugar Inj SQ SCH ×4 (08:12→23:38)
--- NOTE | 2018-08-02 09:30 | P.CONGI ---
History of Present Illness Consult date: 08/02/18 Consult reason: Bright red blood per rectum Chief complaint: GI Bleeding, Severe Thrombocytopenia History of Present Illness: This is an 83-year-old male with past medical history significant for prostate cancer who has previously received 45 treatments of radiation finished in July 2017 as well as a once a month injection he was receiving up until April of this year. Patient presented to the emergency department yesterday with complaints of bright red blood per rectum that has been going on for 2-3 days. States that the bleeding has gotten so severe that he has been having to wear a depend to keep from bleeding into his shorts. Reports multiple episodes a day, states the blood is mixed in with loose stool. Last episode reported by RN was last night. Reports associated fecal incontinence and urgency. Denies rectal tenesmus. Denies any nausea, vomiting, abdominal pain, unintentional weight loss. Patient denies any history of rectal bleeding. Has never had EGD or colonoscopy. Patient is not on blood thinners. Workup has revealed his platelet count is 3 and hematology has been consulted for assistance in management. <Melania Evans - Last Filed: 08/02/18 09:31> Review of Systems Constitutional: Denies weight loss Gastrointestinal: Reports bright, red blood in stools, Reports incontinent of stools, Reports loose stools, Denies abdominal pain, Denies black, tarry stools , Denies nausea, Denies vomiting <Melania Evans - Last Filed: 08/02/18 09:31> PMFSH - History History Provided By: Patient - Medical History Medical History: Medical History (Last Reviewed 08/02/18 @ 08:40 by Jorge Griggs) Diabetes mellitus Psoriasis Tibia/fibula fracture - Tobacco History Second Hand Smoke Exposure: No Smoking Status: Never smoker - Alcohol History How Often Do You Have a Drink Containing Alcohol: Never - Substance Use History Substance History: No History of Abuse - Travel History Recent Travel in the [facility] Within the Last 8 Weeks: No - Immunization History Tetanus Immunization: >5 Years <Melania Evans - Last Filed: 08/02/18 09:31> - Medical History Medical History: Medical History (Last Reviewed 08/02/18 @ 08:40 by Jorge Griggs) Diabetes mellitus Psoriasis Tibia/fibula fracture <Car Doherty - Last Filed: 08/02/18 13:27> Medications and Allergies Active Medications: Active Medications Acetaminophen (Tylenol) 650 mg PO Q6H PRN PRN Reason: PAIN 1-10 AND/OR FEVER >101F Al Hydroxide/Mg Hydroxide (Milk Of Magnesia Liq) 30 ml PO Q12H PRN PRN Reason: Mild Constipation Albuterol (Duoneb Neb (Prn)) 1 ampul NEB Q2HR NEB PRN PRN Reason: WHEEZING Bisacodyl (Dulcolax Supp) 10 mg RECTAL DAILY PRN PRN Reason: SEVERE CONSITIPATION Chlorhexidine Gluconate (Chlorhexidine 2% Cloth) 3 pack TOPICAL DAILY@0400 [facility] Stop: 08/08/18 03:59 Chlorhexidine Gluconate (Chlorhexidine 2% Cloth) 3 pack TOPICAL DAILY@0400 PRN PRN Reason: Extra cloth needed Stop: 08/08/18 03:59 Dextrose (D50w Vial) 50 ml IV.PUSH UNSCH PRN PRN Reason: PER HYPOGLYCEMIA PROTOCOL Glucagon (Glucagon Inj) 1 mg OTHER PRN PRN PRN Reason: for Hypoglycemia Protocol Sodium Chloride (Ns Inj) 250 mls @ 15 mls/hr IV.SIG ONCE [facility] Stop: 08/02/18 20:39 Last Admin: 08/02/18 06:05 Dose: 15 mls/hr Sodium Chloride (Ns Inj) 250 mls @ 15 mls/hr IV.SIG ONCE [facility] Stop: 08/02/18 20:39 Last Admin: 08/02/18 06:05 Dose: 15 mls/hr Sodium Chloride (Ns Inj) 1,000 mls @ 75 mls/hr IV.CONT .[id number] [facility] Last Admin: 08/02/18 04:34 Dose: 125 mls/hr Insulin Aspart (Novolog Insulin Correctional Sugar Inj) 0 unit SQ Q6HR [facility]; Protocol Last Admin: 08/02/18 08:12 Dose: 7 unit Lactulose (Lactulose Liq) 30 ml PO DAILY PRN PRN Reason: SEVERE CONSITIPATION Morphine Sulfate (Morphine Inj) 2 mg IV.PUSH Q2H PRN PRN Reason: PAIN SCALE 6 TO 10 Ondansetron HCl (Zofran Inj) 4 mg IV.PUSH Q6H PRN PRN Reason: NAUSEA OR VOMITING Pantoprazole Sodium (Protonix Inj) 40 mg IV.PUSH Q12H [facility] Last Admin: 08/02/18 04:36 Dose: 40 mg Senna/Docusate Sodium (Lisa-Colace) 1 tab PO BID [facility] Last Admin: 08/02/18 08:09 Dose: Not Given Sennosides (Senokot) 17.2 mg PO Q12H PRN PRN Reason: Moderate Constipation Sodium Chloride (Ns Flush) 2 ml IV.FLUSH BID [facility] Last Admin: 08/02/18 08:09 Dose: 2 ml Sodium Chloride (Ns Flush) 2 ml IV.FLUSH PRN PRN PRN Reason: FLUSH AFTER USING IV ACCESS Tamsulosin HCl (Flomax) 0.4 mg PO DAILY [facility] Last Admin: 08/02/18 08:08 Dose: 0.4 mg <Melania Evans - Last Filed: 08/02/18 09:31> Active Medications: Active Medications Acetaminophen (Tylenol) 650 mg PO Q6H PRN PRN Reason: PAIN 1-10 AND/OR FEVER >101F Al Hydroxide/Mg Hydroxide (Milk Of Knownalbert Liq) 30 ml PO Q12H PRN PRN Reason: Mild Constipation Albuterol (Duoneb Neb (Prn)) 1 ampul NEB Q2HR NEB PRN PRN Reason: WHEEZING Bisacodyl (Dulcolax Supp) 10 mg RECTAL DAILY PRN PRN Reason: SEVERE CONSITIPATION Chlorhexidine Gluconate (Chlorhexidine 2% Cloth) 3 pack TOPICAL DAILY@0400 [facility] Stop: 08/08/18 03:59 Chlorhexidine Gluconate (Chlorhexidine 2% Cloth) 3 pack TOPICAL DAILY@0400 PRN PRN Reason: Extra cloth needed Stop: 08/08/18 03:59 Dextrose (D50w Vial) 50 ml IV.PUSH UNSCH PRN PRN Reason: PER HYPOGLYCEMIA PROTOCOL Glucagon (Glucagon Inj) 1 mg OTHER PRN PRN PRN Reason: for Hypoglycemia Protocol Hydrocortisone Acetate (Cortenema) 100 mg RECTAL HS [facility] Hydrocortisone Acetate (Hemorrhoidal Hc Supp) 25 mg RECTAL BID [facility] Sodium Chloride (Ns Inj) 250 mls @ 15 mls/hr IV.SIG ONCE [facility] Stop: 08/02/18 20:39 Last Admin: 08/02/18 06:05 Dose: 15 mls/hr Sodium Chloride (Ns Inj) 250 mls @ 15 mls/hr IV.SIG ONCE [facility] Stop: 08/02/18 20:39 Last Admin: 08/02/18 06:05 Dose: 15 mls/hr Sodium Chloride (Ns Inj) 1,000 mls @ 75 mls/hr IV.CONT .[id number] [facility] Last Admin: 08/02/18 13:06 Dose: 75 mls/hr Insulin Aspart (Novolog Insulin Correctional Sugar Inj) 0 unit SQ Q6HR [facility]; Protocol Last Admin: 08/02/18 13:09 Dose: 7 unit Lactulose (Lactulose Liq) 30 ml PO DAILY PRN PRN Reason: SEVERE CONSITIPATION Methylprednisolone Sodium Succinate (Solumedrol Inj) 125 mg IV.PUSH Q8H [facility] Last Admin: 08/02/18 13:05 Dose: 125 mg Morphine Sulfate (Morphine Inj) 2 mg IV.PUSH Q2H PRN PRN Reason: PAIN SCALE 6 TO 10 Ondansetron HCl (Zofran Inj) 4 mg IV.PUSH Q6H PRN PRN Reason: NAUSEA OR VOMITING Pantoprazole Sodium (Protonix Inj) 40 mg IV.PUSH Q12H [facility] Last Admin: 08/02/18 04:36 Dose: 40 mg Senna/Docusate Sodium (Lisa-Colace) 1 tab PO BID [facility] Last Admin: 08/02/18 08:09 Dose: Not Given Sennosides (Senokot) 17.2 mg PO Q12H PRN PRN Reason: Moderate Constipation Sodium Chloride (Ns Flush) 2 ml IV.FLUSH BID [facility] Last Admin: 08/02/18 08:09 Dose: 2 ml Sodium Chloride (Ns Flush) 2 ml IV.FLUSH PRN PRN PRN Reason: FLUSH AFTER USING IV ACCESS Tamsulosin HCl (Flomax) 0.4 mg PO DAILY [facility] Last Admin: 08/02/18 08:08 Dose: 0.4 mg <Car Doherty - Last Filed: 08/02/18 13:27> Allergies Allergy/AdvReac Type Severity Reaction Status Date / Time No Known Allergies Allergy Verified 08/02/18 03:15 Home Medications Medication Instructions Recorded Confirmed Type atenolol 25 mg PO DAILY 08/02/18 08/02/18 History chlorpheniramine maleate 4 mg PO Q4H 08/02/18 08/02/18 History [Chlor-Trimeton] metformin 1,000 mg PO BID 08/02/18 08/02/18 History pantoprazole [Protonix] 40 mg PO DAILY 08/02/18 08/02/18 History pioglitazone [Actos] 45 mg PO DAILY 08/02/18 08/02/18 History sitagliptin [Januvia] 100 mg PO DAILY 08/02/18 08/02/18 History tamsulosin 0.4 mg PO DAILY 08/02/18 08/02/18 History Exam Vital signs: Vital Signs 08/02/18 03:15 08/02/18 03:22 08/02/18 04:38 Temperature Pulse Rate 85 81 Respiratory Rate 18 18 18 Blood Pressure 120/59 L 120/59 L 77/35 L Pulse Oximetry 96 99 99 08/02/18 05:30 08/02/18 05:45 08/02/18 06:02 Temperature 97.5 F L 97.5 F L Pulse Rate 82 80 81 Respiratory Rate 18 18 18 Blood Pressure 51/22 L 112/53 L 120/58 L Pulse Oximetry 96 95 97 Intake & Output 08/01/18 08/02/18 08/02/18 18:59 06:59 18:59 Weight 97 kg Other: Date of Last Bowel Movement 08/02/18 Weight On Admission 97 kg - Constitutional no acute distress - Routine HEENT Exam Head: Present: normocephalic, atraumatic - Routine Respiratory Exam Absent: accessory muscle use - Routine Cardiovascular Exam Present: RRR - Routine Abdominal Exam Present: soft, normoactive bowel sounds, distended. Absent: tenderness - Routine Skin Exam Present: dry, warm - Routine Neurological Exam Present: alert, oriented X3 <Melania Evans - Last Filed: 08/02/18 09:31> Vital signs: Vital Signs 08/02/18 03:15 08/02/18 03:22 08/02/18 04:38 Temperature Pulse Rate 85 81 Respiratory Rate 18 18 18 Blood Pressure 120/59 L 120/59 L 77/35 L Pulse Oximetry 96 99 99 08/02/18 05:30 08/02/18 05:45 08/02/18 06:02 Temperature 97.5 F L 97.5 F L Pulse Rate 82 80 81 Respiratory Rate 18 18 18 Blood Pressure 51/22 L 112/53 L 120/58 L Pulse Oximetry 96 95 97 08/02/18 07:00 08/02/18 08:00 08/02/18 09:00 Temperature 98.8 F Pulse Rate 81 84 Respiratory Rate 19 Blood Pressure 139/66 Pulse Oximetry 100 99 08/02/18 10:00 08/02/18 12:00 Temperature 98.9 F Pulse Rate 87 79 Respiratory Rate 18 16 Blood Pressure 124/59 L 133/65 Pulse Oximetry 96 96 Intake & Output 08/01/18 08/02/18 08/02/18 18:59 06:59 18:59 Intake Total 1000 / 1000 Balance 1000 / 1000 Weight 97 kg Intake: IV 1000 / 1000 NS Inj 1,000 ML @ 75 mls/hr IV. 1000 / 1000 CONT .[id number] [facility] Rx#:[id number] Other: Date of Last Bowel Movement 08/02/18 Weight On Admission 97 kg <Car Doherty - Last Filed: 08/02/18 13:27> Results - Labs CBC & Chem 7: 08/02/18 04:00 08/02/18 04:15 Labs: Laboratory Results - last 24 hr 08/02/18 08/02/18 08/02/18 02:35 02:35 02:35 WBC 5.7 RBC 2.63 L Hgb 7.1 L Hct 21.9 L MCV 83.2 MCH 27.0 MCHC 32.5 RDW 21.0 H Plt Count 7 L* MPV 10.0 Prelim Diff (Auto) Slide review pending Neut % (Auto) 66.8 Lymph % (Auto) 18.7 [place] % (Auto) 10.6 H Eos % (Auto) 1.3 Baso % (Auto) 2.6 H Neut # (Auto) 3.8 Lymph # (Auto) 1.1 [place] # (Auto) 0.6 Eos # (Auto) 0.1 Baso # (Auto) 0.1 WBC Differential . Diff Scan Auto diff confirmed Differential Comment . Platelet Estimate Rare L Platelet Morphology Enlarged H PT 12.1 H INR 1.2 APTT 24.3 Fibrinogen D-Dimer Quant (PE/DVT) Sodium Potassium Chloride Carbon Dioxide Anion Gap BUN Creatinine Estimated GFR POC Glucose Random Glucose Calcium Total Bilirubin AST ALT Alkaline Phosphatase Total Protein Albumin Blood Type O Positive Blood Type Recheck Required Antibody Screen Negative MTS Gel Crossmatch Bld Prod Order Comment 08/02/18 08/02/18 08/02/18 03:51 04:00 04:15 WBC 6.6 RBC 2.55 L Hgb 7.1 L Hct 21.3 L MCV 83.4 MCH 27.8 MCHC 33.3 RDW 21.2 H Plt Count 3 L* D MPV 12.0 H Prelim Diff (Auto) Slide review pending Neut % (Auto) 69.1 Lymph % (Auto) 17.8 [place] % (Auto) 11.6 H Eos % (Auto) 1.0 Baso % (Auto) 0.5 Neut # (Auto) 4.6 Lymph # (Auto) 1.2 [place] # (Auto) 0.8 Eos # (Auto) 0.1 Baso # (Auto) 0.0 WBC Differential . Diff Scan Auto diff confirmed Differential Comment . Platelet Estimate Rare L Platelet Morphology Enlarged H PT INR APTT Fibrinogen D-Dimer Quant (PE/DVT) Sodium 138 Potassium 4.4 Chloride 103 Carbon Dioxide 23.8 Anion Gap 11 BUN 22 H Creatinine 1.33 H Estimated GFR 51 L POC Glucose Random Glucose 273 H Calcium 8.1 L Total Bilirubin 0.5 AST 21 ALT 19 Alkaline Phosphatase 59 Total Protein 6.0 L Albumin 2.7 L Blood Type Blood Type Recheck Antibody Screen MTS Gel Crossmatch Bld Prod Order Comment 08/02/18 08/02/18 08/02/18 04:15 06:08 07:34 WBC RBC Hgb Hct MCV MCH MCHC RDW Plt Count MPV Prelim Diff (Auto) Neut % (Auto) Lymph % (Auto) [place] % (Auto) Eos % (Auto) Baso % (Auto) Neut # (Auto) Lymph # (Auto) [place] # (Auto) Eos # (Auto) Baso # (Auto) WBC Differential Diff Scan Differential Comment Platelet Estimate Platelet Morphology PT INR APTT Fibrinogen 194 L D-Dimer Quant (PE/DVT) 0.74 H Sodium Potassium Chloride Carbon Dioxide Anion Gap BUN Creatinine Estimated GFR POC Glucose Random Glucose Calcium Total Bilirubin AST ALT Alkaline Phosphatase Total Protein Albumin Blood Type Blood Type Recheck Antibody Screen MTS Gel Crossmatch See Detail Bld Prod Order Comment 08/02/18 08:11 WBC RBC Hgb Hct MCV MCH MCHC RDW Plt Count MPV Prelim Diff (Auto) Neut % (Auto) Lymph % (Auto) [place] % (Auto) Eos % (Auto) Baso % (Auto) Neut # (Auto) Lymph # (Auto) [place] # (Auto) Eos # (Auto) Baso # (Auto) WBC Differential Diff Scan Differential Comment Platelet Estimate Platelet Morphology PT INR APTT Fibrinogen D-Dimer Quant (PE/DVT) Sodium Potassium Chloride Carbon Dioxide Anion Gap BUN Creatinine Estimated GFR POC Glucose 268 H Random Glucose Calcium Total Bilirubin AST ALT Alkaline Phosphatase Total Protein Albumin Blood Type Blood Type Recheck Antibody Screen MTS Gel Crossmatch Bld Prod Order Comment - Imaging Impressions Abdomen/Pelvis CT 08/02/18 04:01 CONCLUSION: 1. 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 2. Nonacute findings include severe atherosclerotic disease, cholelithiasis, stable complex cystic lesion of the left kidney measuring 6.5 cm, and cirrhotic liver. Head CT 08/02/18 04:01 CONCLUSION: No acute intracranial abnormality is identified. . <Melania Evans - Last Filed: 08/02/18 09:31> - Labs CBC & Chem 7: 08/02/18 09:55 08/02/18 09:55 Labs: Laboratory Results - last 24 hr 08/02/18 08/02/18 08/02/18 02:35 02:35 02:35 WBC 5.7 RBC 2.63 L Hgb 7.1 L Hct 21.9 L MCV 83.2 MCH 27.0 MCHC 32.5 RDW 21.0 H Plt Count 7 L* MPV 10.0 Prelim Diff (Auto) Slide review pending Neut % (Auto) 66.8 Lymph % (Auto) 18.7 [place] % (Auto) 10.6 H Eos % (Auto) 1.3 Baso % (Auto) 2.6 H Neut # (Auto) 3.8 Lymph # (Auto) 1.1 [place] # (Auto) 0.6 Eos # (Auto) 0.1 Baso # (Auto) 0.1 WBC Differential . Diff Scan Auto diff confirmed Differential Comment . Platelet Estimate Rare L Platelet Morphology Enlarged H PT 12.1 H INR 1.2 APTT 24.3 Fibrinogen D-Dimer Quant (PE/DVT) Sodium Potassium Chloride Carbon Dioxide Anion Gap BUN Creatinine Estimated GFR POC Glucose Random Glucose Calcium Phosphorus Magnesium Total Bilirubin AST ALT Alkaline Phosphatase Total Protein Albumin Blood Type O Positive Blood Type Recheck Required Antibody Screen Negative MTS Gel Crossmatch Bld Prod Order Comment 10/08/1008/02/18 08/02/18 03:51 04:00 04:15 WBC 6.6 RBC 2.55 L Hgb 7.1 L Hct 21.3 L MCV 83.4 MCH 27.8 MCHC 33.3 RDW 21.2 H Plt Count 3 L* D MPV 12.0 H Prelim Diff (Auto) Slide review pending Neut % (Auto) 69.1 Lymph % (Auto) 17.8 [place] % (Auto) 11.6 H Eos % (Auto) 1.0 Baso % (Auto) 0.5 Neut # (Auto) 4.6 Lymph # (Auto) 1.2 [place] # (Auto) 0.8 Eos # (Auto) 0.1 Baso # (Auto) 0.0 WBC Differential . Diff Scan Auto diff confirmed Differential Comment . Platelet Estimate Rare L Platelet Morphology Enlarged H PT INR APTT Fibrinogen D-Dimer Quant (PE/DVT) Sodium 138 Potassium 4.4 Chloride 103 Carbon Dioxide 23.8 Anion Gap 11 BUN 22 H Creatinine 1.33 H Estimated GFR 51 L POC Glucose Random Glucose 273 H Calcium 8.1 L Phosphorus Magnesium Total Bilirubin 0.5 AST 21 ALT 19 Alkaline Phosphatase 59 Total Protein 6.0 L Albumin 2.7 L Blood Type Blood Type Recheck Antibody Screen MTS Gel Crossmatch Bld Prod Order Comment 08/02/18 08/02/18 08/02/18 04:15 06:08 07:34 WBC RBC Hgb Hct MCV MCH MCHC RDW Plt Count MPV Prelim Diff (Auto) Neut % (Auto) Lymph % (Auto) [place] % (Auto) Eos % (Auto) Baso % (Auto) Neut # (Auto) Lymph # (Auto) [place] # (Auto) Eos # (Auto) Baso # (Auto) WBC Differential Diff Scan Differential Comment Platelet Estimate Platelet Morphology PT INR APTT Fibrinogen 194 L D-Dimer Quant (PE/DVT) 0.74 H Sodium Potassium Chloride Carbon Dioxide Anion Gap BUN Creatinine Estimated GFR POC Glucose Random Glucose Calcium Phosphorus Magnesium Total Bilirubin AST ALT Alkaline Phosphatase Total Protein Albumin Blood Type Blood Type Recheck Antibody Screen MTS Gel Crossmatch See Detail Bld Prod Order Comment 08/02/18 08/02/18 08/02/18 08:11 09:55 09:55 WBC 4.6 RBC 2.92 L Hgb 8.2 L Hct 24.7 L MCV 84.4 MCH 27.9 MCHC 33.1 RDW 20.7 H Plt Count 13 L* D MPV 8.2 Prelim Diff (Auto) Slide review pending Neut % (Auto) 86.0 H Lymph % (Auto) 11.2 [place] % (Auto) 2.5 Eos % (Auto) 0.2 Baso % (Auto) 0.1 Neut # (Auto) 3.9 Lymph # (Auto) 0.5 L [place] # (Auto) 0.1 Eos # (Auto) 0.0 Baso # (Auto) 0.0 WBC Differential . Diff Scan Auto diff confirmed Differential Comment . Platelet Estimate Rare L Platelet Morphology Enlarged H PT INR APTT Fibrinogen D-Dimer Quant (PE/DVT) Sodium 138 Potassium 4.4 Chloride 105 Carbon Dioxide 22.1 Anion Gap 11 BUN 22 H Creatinine 1.12 Estimated GFR 63 L POC Glucose 268 H Random Glucose 237 H Calcium 8.5 Phosphorus 2.8 Magnesium 1.5 Total Bilirubin 1.3 H AST 20 ALT 19 Alkaline Phosphatase 55 Total Protein 6.6 D Albumin 3.4 D Blood Type Blood Type Recheck Antibody Screen MTS Gel Crossmatch Bld Prod Order Comment 08/02/18 12:55 WBC RBC Hgb Hct MCV MCH MCHC RDW Plt Count MPV Prelim Diff (Auto) Neut % (Auto) Lymph % (Auto) [place] % (Auto) Eos % (Auto) Baso % (Auto) Neut # (Auto) Lymph # (Auto) [place] # (Auto) Eos # (Auto) Baso # (Auto) WBC Differential Diff Scan Differential Comment Platelet Estimate Platelet Morphology PT INR APTT Fibrinogen D-Dimer Quant (PE/DVT) Sodium Potassium Chloride Carbon Dioxide Anion Gap BUN Creatinine Estimated GFR POC Glucose 279 H Random Glucose Calcium Phosphorus Magnesium Total Bilirubin AST ALT Alkaline Phosphatase Total Protein Albumin Blood Type Blood Type Recheck Antibody Screen MTS Gel Crossmatch Bld Prod Order Comment - Imaging Impressions Abdomen/Pelvis CT 08/02/18 04:01 CONCLUSION: 1. 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 2. Nonacute findings include severe atherosclerotic disease, cholelithiasis, stable complex cystic lesion of the left kidney measuring 6.5 cm, and cirrhotic liver. Head CT 08/02/18 04:01 CONCLUSION: No acute intracranial abnormality is identified. . <Car Doherty - Last Filed: 08/02/18 13:27> Assessment and Plan - Plan Assessment Bright red blood per rectumpatient reports he has been having bright red blood per rectum for the past 2-3 days. It has become so severe that he is been wearing a depend to keep from saturating his shorts. Reports that the blood is mixed with stool. Reports fecal urgency and incontinence. States in the past he has had small amounts of bright or blood in the toilet paper when he wipes, made his PCP aware of this he reports that is probably secondary to hemorrhoids nothing to be concerned about. Patient denies any associated nausea, vomiting, abdominal pain, unintentional weight loss. Has never had an EGD or colonoscopy. Denies taking any blood thinners. 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 Prostate cancer status post 45 treatments of radiation completed in July 2017 and patient reports once a month injections that he finished in April of this year. Thrombocytopeniaplatelet count currently 3. Patient does have history of thrombocytopenia but has never been this low according to previous chart review. States that he has not seen a call center support consultant or oncologist in the past. Plan Severe thrombocytopenia, no invasive procedures planned at this time Hydrocortisone suppository and enema Hematology consult At this time recommend continuation of supportive care with blood transfusions as needed Colonoscopy when platelet count improves Further recommendations to follow Patient has been seen and examined by myself and Dr. Doherty this note was written on his behalf <Melania Evans - Last Filed: 08/02/18 09:31> - Plan Seen and examined with DIGITAL DIRECTOR, no active bleeding at present. Need to correct coagulopathy prior to any gi procedures. Monitor Labs. Hydrocortisone suppositories. Colonoscopy/APC planned. Thank you The exam, history, and the medical decision-making described in the above note were completed with the assistance of the mid-level provider. I reviewed and agree with the findings presented. I attest that I had a [id number] encounter with the patient on the same day, and personally performed and documented my assessment and findings in the medical record. <Car Doherty - Last Filed: 08/02/18 13:27>
[2018-08-02 10:30] LABS: Baso % (Auto) 0.1 % (0.0-2.0); Eos % (Auto) 0.2 % (0.0-4.0); Hematocrit 24.7 % (39.0-51.0); Hemoglobin 8.2 gm/dL (13.0-17.0); Lymph # (Auto) 0.5 th/mm3 (1.0-4.8); Lymph % (Auto) 11.2 % (9.0-44.0); Mean Corpuscular HGB Conc 33.1 % (32.0-36.0); Mean Corpuscular Hemoglobin 27.9 pg (27.0-34.0); Mean Corpuscular Volume 84.4 fL (80.0-100.0); Mean Platelet Volume 8.2 fL (7.0-11.0); Mono # (Auto) 0.1 th/mm3 (0.0-0.9); Mono % (Auto) 2.5 % (0.0-8.0); Neut # (Auto) 3.9 th/mm3 (1.8-7.7); Red Blood Count 2.92 mil/mm3 (4.50-5.90); Red Cell Distribution Width 20.7 % (11.6-17.2); White Blood Count 4.6 th/mm3 (4.0-11.0)
[2018-08-02 10:45] LABS: Platelet Count 13 th/mm3 (150-450)
[2018-08-02 11:08] LABS: Albumin 3.4 g/dL (3.4-5.0); Anion Gap 11 meq/L (5-15); Aspartate Aminotransferase 20 U/L (15-37); Blood Urea Nitrogen 22 mg/dL (7-18); Calcium 8.5 mg/dL (8.5-10.1); Carbon Dioxide 22.1 meq/L (21.0-32.0); Chloride 105 meq/L (98-107); Glomerular Filtration Rate 63 mL/min (>89); Glucose,Random 237 mg/dL (74-106); Magnesium 1.5 mg/dL (1.5-2.5); Potassium 4.4 meq/L (3.5-5.1); Sodium 138 meq/L (136-145)
[2018-08-02 11:18] LABS: Alanine Aminotransferase 19 U/L (12-78); Alkaline Phosphatase 55 U/L (45-117); Phosphorus 2.8 mg/dL (2.5-4.9); Total Protein 6.6 g/dL (6.4-8.2)
[2018-08-02 11:42] LABS: Platelet Estimate Rare (Normal)
[2018-08-02] MEDS: MethylPREDNISolone Sod Succinate Inj 125 MG/2 ML Vial IV.PUSH SCH ×2 (13:05→21:54)
--- NOTE | 2018-08-02 14:39 | MB ---
cc: Benedicto Emery MD DATE: 08/02/2018 REQUESTING PHYSICIAN: Mata Boone MD. REASON FOR CONSULTATION: Evaluation of severe thrombocytopenia in a gentleman with bleeding. HISTORY OF PRESENT ILLNESS: An 83-year-old pleasant gentleman with a history of prostate cancer, status post radiation completed about a year ago and completed 2 years of adjuvant hormonal therapy with Lupron about 4 months ago. Presented with acute lower GI bleed of 2-3 days' duration. The patient had dropped his hemoglobin to 7 grams and received blood transfusion in the ER. I was called for hematology consultation as his platelet count was severely decreased at 7000 initially and a confirmatory CBC showed a platelet count of 3000. The patient is not actively bleeding at this time and is hemodynamically stable for transfer to the ICU from the emergency room. He gives the above history. Other than that, he has no fevers, night sweats, or recent weight loss. He was hypotensive prior to arrival to the ICU. After rehydration and fluid resuscitation and blood transfusion, his blood pressure improved to 120/59. He was also started on a Protonix drip and octreotide. GI has been consulted. Mr. Butterfield is currently asymptomatic and comfortable. He is not having any active bleeding at this time. REVIEW OF SYSTEMS: Denies headaches, motor or sensory symptoms. No cough, chest pain, or shortness of breath. No abdominal pain or distention. No nausea or vomiting. No hematemesis. Lower gastrointestinal bleed as mentioned. It was not preceded by constipation or diarrhea. It was mostly painless. There is no frequency, urgency, or hematuria. PAST MEDICAL HISTORY: He is diabetic and has psoriasis, nonsmoker, non-alcohol abuser. He is retired with no occupations for chemicals or radiation. Therapeutic radiation as mentioned above for prostate cancer. He was treated by urologist and oncologist outside of this hospital. He claims his last PSA was 0.04 three to four months ago. We do not have any records of his prostate cancer therapy. MEDICATIONS: He is on 1. Flomax. 2. Protonix. 3. Lactulose. 4. Albuterol. 5. Tylenol. FAMILY HISTORY: Noncontributory. PHYSICAL EXAMINATION: GENERAL: Elderly gentleman in no apparent distress. Severe pallor present. No icterus. No lymphadenopathy in the neck or axilla. HEENT: Without oropharyngeal lesions. Specifically, no petechiae in the palate. No thrush. Dentures noted. Alert and oriented x4. No meningeal signs. CARDIOVASCULAR: S1, S2, regular rate and rhythm. No murmurs or gallops. LUNGS: Bilaterally clear without crackles or wheeze. ABDOMEN: Obese, distended, soft, and nontender without palpable organomegaly. RECTAL: Deferred. EXTREMITIES: No edema or evidence of DVTs. No petechia or ecchymosis. Minimal bruising in the upper extremities noted. LABORATORIES ON ADMISSION: He had a white count of 5.7, hemoglobin 7.1, hematocrit 21.9, MCV 83.2, platelets 7000. Repeat CBC at 4 a.m. showed white count of 6.6, hemoglobin 7.1, and platelets 3000. Subsequently, he received 2 units of RBCs and repeat CBC is pending. He also received 2 units of platelet transfusion. PT/INR 1.2, PTT 24.3. CT abdomen and pelvis at 4 a.m. showed circumferential wall thickening of the rectum, likely indicating proctitis. Nonacute findings including cirrhotic liver with spleen within normal limits. 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 We did not have any prior records and he does not have prior hematologic diagnosis. The possibility of myelophthisic anemia is unlikely with the PSA being as low as he mentioned. In addition, he does not have pancytopenia. 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 Hence, he is started on Solu-Medrol; but, since his active bleeding has stopped, we will not continue any further platelet transfusions unless he has significant bleed again. I will review his blood smear and see him in followup. All these issues were discussed with the patient and his and also with the dot net developer on the team. Will follow up in the hospital. MD MICH Clarke/ts , 01:56 PM , 02:11 PM
[2018-08-02 16:26] LABS: Hematocrit 23.1 % (39.0-51.0); Mean Corpuscular HGB Conc 34.5 % (32.0-36.0); Mean Corpuscular Hemoglobin 28.4 pg (27.0-34.0); Mean Corpuscular Volume 82.2 fL (80.0-100.0); Mean Platelet Volume 9.2 fL (7.0-11.0); Red Blood Count 2.82 mil/mm3 (4.50-5.90); Red Cell Distribution Width 20.3 % (11.6-17.2); White Blood Count 4.8 th/mm3 (4.0-11.0)
[2018-08-02 16:56] LABS: Platelet Count 15 th/mm3 (150-450)
--- NOTE | 2018-08-02 18:23 | ECG ---
Date Performed: 08/02/2018 Time Performed: 08:23:36 PTAGE: 83 years EKG: Sinus rhythm WITH FIRST DEGREE AV BLOCK INTRAVENTRICULAR CONDUCTION DELAY ABNORMAL ECG PREVIOUS TRACING : 11/30/2014 21.34 DOCTOR: Javid Cobb Interpretating Date/Time 08/02/2018 18:22:40
[2018-08-02] MEDS: Hydrocortisone Acetate 25 MG Supp RECTAL SCH (21:05)
[2018-08-03] MEDS: Sod Chloride 0.9% Inj 1,000 ML IV.CONT SCH (01:13)
[2018-08-03] MEDS: Chlorhexidine Gluconate 2% 1 Pack (2 Cloths) TOPICAL SCH (03:40)
[2018-08-03] MEDS ORDERED: Chlorhexidine Gluconate 2% 1 Pack (2 Cloths) TOPICAL PRN (04:00)
[2018-08-03] MEDS: Pantoprazole Inj 40 MG Vial IV.PUSH SCH ×2 (04:32→18:35)
[2018-08-03 04:56] LABS: Baso % (Auto) 0.1 % (0.0-2.0); Hematocrit 21.3 % (39.0-51.0); Hemoglobin 7.2 gm/dL (13.0-17.0); Lymph # (Auto) 0.6 th/mm3 (1.0-4.8); Lymph % (Auto) 8.4 % (9.0-44.0); Mean Corpuscular HGB Conc 33.8 % (32.0-36.0); Mean Corpuscular Hemoglobin 28.3 pg (27.0-34.0); Mean Corpuscular Volume 83.7 fL (80.0-100.0); Mean Platelet Volume 11.5 fL (7.0-11.0); Mono # (Auto) 0.2 th/mm3 (0.0-0.9); Mono % (Auto) 2.7 % (0.0-8.0); Neut # (Auto) 6.5 th/mm3 (1.8-7.7); Neut % (Auto) 88.8 % (16.0-70.0); Red Blood Count 2.54 mil/mm3 (4.50-5.90); Red Cell Distribution Width 20.5 % (11.6-17.2); White Blood Count 7.4 th/mm3 (4.0-11.0)
[2018-08-03 05:04] LABS: Activated Partial Thrombo Time 22.8 sec (24.3-30.1); INR 1.2 Ratio; Prothrombin Time 12.6 sec (9.8-11.6)
[2018-08-03] MEDS: MethylPREDNISolone Sod Succinate Inj 125 MG/2 ML Vial IV.PUSH SCH (05:08)
[2018-08-03] MEDS: Insulin NovoLOG Aspart Correctional Sugar Inj SQ SCH ×3 (05:09→18:35)
[2018-08-03 05:21] LABS: Albumin 2.9 g/dL (3.4-5.0); Anion Gap 10 meq/L (5-15); Aspartate Aminotransferase 22 U/L (15-37); Calcium 8.1 mg/dL (8.5-10.1); Chloride 105 meq/L (98-107); Glomerular Filtration Rate 75 mL/min (>89); Glucose,Random 217 mg/dL (74-106); Magnesium 1.5 mg/dL (1.5-2.5); Potassium 3.9 meq/L (3.5-5.1); Sodium 138 meq/L (136-145)
[2018-08-03 05:22] LABS: Blood Urea Nitrogen 20 mg/dL (7-18)
[2018-08-03 05:25] LABS: Alanine Aminotransferase 18 U/L (12-78); Alkaline Phosphatase 46 U/L (45-117); Phosphorus 2.8 mg/dL (2.5-4.9); Total Protein 5.8 g/dL (6.4-8.2)
[2018-08-03 05:28] LABS: Platelet Count 5 th/mm3 (150-450)
[2018-08-03 08:09] LABS: Platelet Estimate Rare (Normal)
--- NOTE | 2018-08-03 08:35 | P.PNCC ---
Subjective Subjective Remarks/Hospital Course: 83-year-old very pleasant gentleman with history of prostate cancer on hormonal therapy with the last course received in end of May, presents with generalized weakness and gross blood on rectal exam with very loose watery blood. Patient initially was hypotensive prior to arrival with the blood pressure 80/50, after liter of fluid prior to arrival by EVAC the patient's blood pressure now 120/59. Laboratory abnormalities notable for a platelet count of 7000, hemoglobin of 7.1. These are critical levels and a 6 pack of platelets as well as 2 PRBCs now and 2 in reserve been ordered by ED attending, as well as Protonix drip, and octreotide. The patient does have a history of prostate cancer, he has been on Firmagon from his urology/oncologist. 08/03 Patient is lying in bed in NAD. s/p 2u PLT and 2u PRBC yesterday PLT 5 this morning. Objective Vital Signs / I&O: Vital Signs 08/02/18 09:00 08/02/18 10:00 08/02/18 12:00 Temperature 98.9 F Pulse Rate 84 87 79 Respiratory Rate 18 16 Blood Pressure 124/59 L 133/65 Pulse Oximetry 96 96 08/02/18 14:00 08/02/18 16:00 08/02/18 18:00 Temperature 97.8 F Pulse Rate 89 93 H 84 Respiratory Rate 15 22 17 Blood Pressure 125/59 L 131/61 125/58 L Pulse Oximetry 97 98 97 08/02/18 19:00 08/02/18 20:00 08/02/18 20:01 Temperature 97.8 F Pulse Rate 78 77 Respiratory Rate 19 Blood Pressure 117/52 L Pulse Oximetry 96 95 08/02/18 20:23 08/02/18 21:00 08/02/18 22:00 Temperature Pulse Rate 73 71 Respiratory Rate 16 17 Blood Pressure 106/51 L 118/56 L Pulse Oximetry 96 95 96 08/02/18 23:00 08/02/18 23:02 08/02/18 23:34 Temperature Pulse Rate 99 H 102 H 77 Respiratory Rate 37 H 33 H 23 Blood Pressure 186/116 H 128/58 L Pulse Oximetry 99 92 L 99 08/03/18 00:00 08/03/18 01:00 08/03/18 02:00 Temperature 97.9 F Pulse Rate 67 65 67 Respiratory Rate 15 18 14 Blood Pressure 123/57 L 126/60 Pulse Oximetry 95 97 100 08/03/18 02:01 08/03/18 03:00 08/03/18 03:01 Temperature Pulse Rate 67 64 63 Respiratory Rate 11 L 13 15 Blood Pressure 127/62 136/59 L Pulse Oximetry 100 97 94 L 08/03/18 04:00 08/03/18 05:00 08/03/18 05:01 Temperature 97.7 F Pulse Rate 66 66 68 Respiratory Rate 16 12 14 Blood Pressure 149/64 H 134/63 Pulse Oximetry 100 95 95 08/03/18 06:00 08/03/18 06:01 Temperature Pulse Rate 65 66 Respiratory Rate 12 14 Blood Pressure 143/63 H Pulse Oximetry 95 96 Intake & Output 08/02/18 08/03/18 08/03/18 18:59 06:59 18:59 Intake Total 1850 / 1850 1000 / 1000 Output Total 1150 / 1150 500 / 500 Balance 700 / 700 500 / 500 Intake: IV 1100 / 1100 1000 / 1000 NS Inj 1,000 ML @ 75 mls/hr IV. 1000 / 1000 1000 / 1000 CONT .[id number] MERON Rx#:[id number] Oral 750 / 750 0 / 0 Output: Urine 1150 / 1150 500 / 500 Other: Date of Last Bowel Movement 08/02/18 08/03/18 # Bowel Movements 1 Result Diagrams: 08/03/18 08:56 08/03/18 03:54 Other Results: Laboratory Results - last 12 hr 08/02/18 08/02/18 08/02/18 03:51 06:08 23:35 WBC RBC Hgb Hct MCV MCH MCHC RDW Plt Count MPV Prelim Diff (Auto) Neut % (Auto) Lymph % (Auto) Hooker % (Auto) Eos % (Auto) Baso % (Auto) Neut # (Auto) Lymph # (Auto) Hooker # (Auto) Eos # (Auto) Baso # (Auto) WBC Differential Diff Scan Differential Comment Platelet Estimate Platelet Morphology PT INR APTT Sodium Potassium Chloride Carbon Dioxide Anion Gap BUN Creatinine Estimated GFR POC Glucose 248 H Random Glucose Calcium Phosphorus Magnesium Total Bilirubin AST ALT Alkaline Phosphatase Total Protein Albumin Bld Prod Order Comment 08/03/18 08/03/18 08/03/18 03:54 03:54 03:54 WBC 7.4 D RBC 2.54 L Hgb 7.2 L Hct 21.3 L MCV 83.7 MCH 28.3 MCHC 33.8 RDW 20.5 H Plt Count 5 L* D MPV 11.5 H Prelim Diff (Auto) Slide review pending Neut % (Auto) 88.8 H Lymph % (Auto) 8.4 L Hooker % (Auto) 2.7 Eos % (Auto) 0.0 Baso % (Auto) 0.1 Neut # (Auto) 6.5 Lymph # (Auto) 0.6 L Hooker # (Auto) 0.2 Eos # (Auto) 0.0 Baso # (Auto) 0.0 WBC Differential . Diff Scan Auto diff confirmed Differential Comment . Platelet Estimate Rare L Platelet Morphology Enlarged H PT 12.6 H INR 1.2 APTT 22.8 L Sodium 138 Potassium 3.9 Chloride 105 Carbon Dioxide 23.0 Anion Gap 10 BUN 20 H Creatinine 0.96 Estimated GFR 75 L POC Glucose Random Glucose 217 H Calcium 8.1 L Phosphorus 2.8 Magnesium 1.5 Total Bilirubin 0.7 AST 22 ALT 18 Alkaline Phosphatase 46 Total Protein 5.8 L D Albumin 2.9 L Bld Prod Order Comment 08/03/18 05:08 WBC RBC Hgb Hct MCV MCH MCHC RDW Plt Count MPV Prelim Diff (Auto) Neut % (Auto) Lymph % (Auto) Hooker % (Auto) Eos % (Auto) Baso % (Auto) Neut # (Auto) Lymph # (Auto) Hooker # (Auto) Eos # (Auto) Baso # (Auto) WBC Differential Diff Scan Differential Comment Platelet Estimate Platelet Morphology PT INR APTT Sodium Potassium Chloride Carbon Dioxide Anion Gap BUN Creatinine Estimated GFR POC Glucose 248 H Random Glucose Calcium Phosphorus Magnesium Total Bilirubin AST ALT Alkaline Phosphatase Total Protein Albumin Bld Prod Order Comment Imaging: Abdomen/Pelvis CT 08/02/18 04:01 CONCLUSION: 1. 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 2. Nonacute findings include severe atherosclerotic disease, cholelithiasis, stable complex cystic lesion of the left kidney measuring 6.5 cm, and cirrhotic liver. Head CT 08/02/18 04:01 CONCLUSION: No acute intracranial abnormality is identified. . Objective Remarks: GENERAL: Patient is 83 yo lying in bed in NAD SKIN: Warm and dry. HEAD: Normocephalic. EYES: No scleral icterus. No injection or drainage. NECK: Supple, trachea midline. No JVD or lymphadenopathy. CARDIOVASCULAR: Regular rate and rhythm without murmurs, gallops, or rubs. RESPIRATORY: Breath sounds equal bilaterally. No accessory muscle use. GASTROINTESTINAL: Abdomen soft, non-tender, nondistended. MUSCULOSKELETAL: No cyanosis, or edema. Neuro: Awake and alert Assessment and Plan - Assessment and Plan Plan: Severe thrombocytopenia Anemia ? GI bleed Hyperglycemia Hx DM Hx Prostate ca s/p radiation tx. Proctitis per CT abd. Plan Neuro: Awake, alert. Monitor neuro status and avoid sedatives. CT brain: No acute findings Pulm: Oxygen PRN keep sats >92% Bronchodilators CV: Monitor HR and BP keep MAP>65mmHg Check CK/trop., 2D echo to eval LV function : Monitor renal function, I/O's, electrolytes replacement per protocol. GI: Start PO diet. On Protonix 40mg BID GI is following. On Hydrocortisone supp BID ID: Monitor for signs of infections ( fever, WBC) Heme: Monitor CBC, coags, s/p transfusion 2u PRBC and 2 u PLT yesterday. PLT 5 this morning. For transfusion 1 unit PLT and 1 u PRBC per Heme. Hematology is following- on solumederol 125mg IV Q8 for likely ITP. Endo: Medium SSI for glycemic control DVT GI prophylaxis -Teds SCDs -No pharmacological DVT prophylaxis due to severe thrombocytopenia and GI bleed -Protonix IV twice daily Level 3
[2018-08-03 09:47] LABS: Baso % (Auto) 0.1 % (0.0-2.0); Hematocrit 21.4 % (39.0-51.0); Hemoglobin 7.2 gm/dL (13.0-17.0); Lymph # (Auto) 0.6 th/mm3 (1.0-4.8); Lymph % (Auto) 7.2 % (9.0-44.0); Mean Corpuscular HGB Conc 33.4 % (32.0-36.0); Mean Corpuscular Hemoglobin 28.1 pg (27.0-34.0); Mean Platelet Volume 10.4 fL (7.0-11.0); Mono # (Auto) 0.3 th/mm3 (0.0-0.9); Mono % (Auto) 3.1 % (0.0-8.0); Neut # (Auto) 8.1 th/mm3 (1.8-7.7); Neut % (Auto) 89.6 % (16.0-70.0); Red Blood Count 2.55 mil/mm3 (4.50-5.90); Red Cell Distribution Width 20.8 % (11.6-17.2)
[2018-08-03] MEDS: Hydrocortisone Acetate 25 MG Supp RECTAL SCH ×2 (09:59→21:33)
[2018-08-03] MEDS: Senna/Docusate Sodium 8.6/50 MG Tablet PO SCH ×2 (10:00→21:34)
[2018-08-03] MEDS: SODIUM CHLOR 0.9% IV.SIG SCH ×2 (10:00→18:34)
[2018-08-03] MEDS: METHYLPREDNISOLONE SOD SUC IV.SIG SCH ×2 (10:00→18:34)
[2018-08-03 10:03] LABS: Troponin I 0.04 ng/mL (0.02-0.05)
[2018-08-03 10:15] LABS: CKMB Percent 1.1 % (0.0-4.0); Creatine Kinase MB 3.9 ng/mL (0.5-3.6)
[2018-08-03 10:36] LABS: Platelet Count 5 th/mm3 (150-450)
--- NOTE | 2018-08-03 10:38 | P.PNGI ---
Subjective Interval history: Pt resting in bed, denies nausea, vomiting, abdominal pain. Pt had BM this morning with small amount of BRB. <Melania Evans - Last Filed: 08/03/18 10:22> Physical Exam Vital signs: Vital Signs 08/02/18 12:00 08/02/18 14:00 08/02/18 16:00 Temperature 98.9 F 97.8 F Pulse Rate 79 89 93 H Respiratory Rate 16 15 22 Blood Pressure 133/65 125/59 L 131/61 Pulse Oximetry 96 97 98 08/02/18 18:00 08/02/18 19:00 08/02/18 20:00 Temperature Pulse Rate 84 78 Respiratory Rate 17 Blood Pressure 125/58 L Pulse Oximetry 97 96 08/02/18 20:01 08/02/18 20:23 08/02/18 21:00 Temperature 97.8 F Pulse Rate 77 73 Respiratory Rate 19 16 Blood Pressure 117/52 L 106/51 L Pulse Oximetry 95 96 95 08/02/18 22:00 08/02/18 23:00 08/02/18 23:02 Temperature Pulse Rate 71 99 H 102 H Respiratory Rate 17 37 H 33 H Blood Pressure 118/56 L 186/116 H Pulse Oximetry 96 99 92 L 08/02/18 23:34 08/03/18 00:00 08/03/18 01:00 Temperature 97.9 F Pulse Rate 77 67 65 Respiratory Rate 23 15 18 Blood Pressure 128/58 L 123/57 L 126/60 Pulse Oximetry 99 95 97 08/03/18 02:00 08/03/18 02:01 08/03/18 03:00 Temperature Pulse Rate 67 67 64 Respiratory Rate 14 11 L 13 Blood Pressure 127/62 Pulse Oximetry 100 100 97 08/03/18 03:01 08/03/18 04:00 08/03/18 05:00 Temperature 97.7 F Pulse Rate 63 66 66 Respiratory Rate 15 16 12 Blood Pressure 136/59 L 149/64 H Pulse Oximetry 94 L 100 95 08/03/18 05:01 08/03/18 06:00 08/03/18 06:01 Temperature Pulse Rate 68 65 66 Respiratory Rate 14 12 14 Blood Pressure 134/63 143/63 H Pulse Oximetry 95 95 96 08/03/18 08:14 Temperature Pulse Rate Respiratory Rate Blood Pressure Pulse Oximetry 97 Intake & Output 08/02/18 08/03/18 08/03/18 18:59 06:59 18:59 Intake Total 1850 / 1850 1000 / 1000 Output Total 1150 / 1150 500 / 500 Balance 700 / 700 500 / 500 Intake: IV 1100 / 1100 1000 / 1000 NS Inj 1,000 ML @ 75 mls/hr IV. 1000 / 1000 1000 / 1000 CONT .[id number] [facility] Rx#:[id number] Oral 750 / 750 0 / 0 Output: Urine 1150 / 1150 500 / 500 Other: Date of Last Bowel Movement 08/02/18 08/03/18 # Bowel Movements 1 - Constitutional no acute distress - Routine HEENT Exam Head: Present: normocephalic, atraumatic - Routine Respiratory Exam Absent: accessory muscle use - Routine Abdominal Exam Present: soft, normoactive bowel sounds. Absent: tenderness, distended - Routine Skin Exam Present: dry, warm - Routine Neurological Exam Present: alert, oriented X3 <Melania Evans - Last Filed: 08/03/18 10:22> Vital signs: Vital Signs 08/02/18 18:00 08/02/18 19:00 08/02/18 20:00 Temperature Pulse Rate 84 78 Respiratory Rate 17 Blood Pressure 125/58 L Pulse Oximetry 97 96 08/02/18 20:01 08/02/18 20:23 08/02/18 21:00 Temperature 97.8 F Pulse Rate 77 73 Respiratory Rate 19 16 Blood Pressure 117/52 L 106/51 L Pulse Oximetry 95 96 95 08/02/18 22:00 08/02/18 23:00 08/02/18 23:02 Temperature Pulse Rate 71 99 H 102 H Respiratory Rate 17 37 H 33 H Blood Pressure 118/56 L 186/116 H Pulse Oximetry 96 99 92 L 08/02/18 23:34 08/03/18 00:00 08/03/18 01:00 Temperature 97.9 F Pulse Rate 77 67 65 Respiratory Rate 23 15 18 Blood Pressure 128/58 L 123/57 L 126/60 Pulse Oximetry 99 95 97 08/03/18 02:00 08/03/18 02:01 08/03/18 03:00 Temperature Pulse Rate 67 67 64 Respiratory Rate 14 11 L 13 Blood Pressure 127/62 Pulse Oximetry 100 100 97 08/03/18 03:01 08/03/18 04:00 08/03/18 05:00 Temperature 97.7 F Pulse Rate 63 66 66 Respiratory Rate 15 16 12 Blood Pressure 136/59 L 149/64 H Pulse Oximetry 94 L 100 95 08/03/18 05:01 08/03/18 06:00 08/03/18 06:01 Temperature Pulse Rate 68 65 66 Respiratory Rate 14 12 14 Blood Pressure 134/63 143/63 H Pulse Oximetry 95 95 96 08/03/18 07:00 08/03/18 08:00 08/03/18 08:01 Temperature 98.1 F Pulse Rate 65 84 83 Respiratory Rate 13 34 H 33 H Blood Pressure 157/67 H 163/63 H Pulse Oximetry 99 96 98 08/03/18 08:14 08/03/18 09:00 08/03/18 09:01 Temperature Pulse Rate 80 81 Respiratory Rate 25 H 17 Blood Pressure 155/64 H Pulse Oximetry 97 100 100 08/03/18 10:00 08/03/18 10:01 08/03/18 11:00 Temperature Pulse Rate 72 73 87 Respiratory Rate 18 22 17 Blood Pressure 142/59 H 134/59 L Pulse Oximetry 99 99 100 08/03/18 12:00 08/03/18 12:01 08/03/18 13:00 Temperature 98.0 F Pulse Rate 89 90 100 H Respiratory Rate 22 25 H 18 Blood Pressure 138/58 L Pulse Oximetry 99 97 100 08/03/18 13:01 08/03/18 14:00 08/03/18 14:01 Temperature 98.2 F Pulse Rate 100 H 116 H 114 H Respiratory Rate 26 H 25 H 26 H Blood Pressure 132/70 106/62 Pulse Oximetry 100 99 100 08/03/18 14:24 08/03/18 14:41 08/03/18 15:00 Temperature 98.2 F 98.3 F Pulse Rate 108 H 100 H 100 H Respiratory Rate 26 H 21 23 Blood Pressure 106/62 105/60 100/58 L Pulse Oximetry 99 100 100 08/03/18 15:04 08/03/18 15:36 08/03/18 16:00 Temperature 98.3 F 97.8 F 97.8 F Pulse Rate 98 H 96 H 98 H Respiratory Rate 22 24 33 H Blood Pressure 100/58 L 100/58 L 99/56 L Pulse Oximetry 100 100 100 Intake & Output 08/02/18 08/03/18 08/03/18 18:59 06:59 18:59 Intake Total 1850 / 1850 1000 / 1000 291 / 291 Output Total 1150 / 1150 500 / 500 Balance 700 / 700 500 / 500 291 / 291 Intake: IV 1100 / 1100 1000 / 1000 100 / 100 NS Inj 1,000 ML @ 75 mls/hr IV. 1000 / 1000 1000 / 1000 CONT .[id number] [facility] Rx#:[id number] SoluMEDROL Inj 250 MG In NS Inj 100 / 100 96 ML @ 200 mls/hr IV.SIG Q8H [facility] Rx#:[id number] Oral 750 / 750 0 / 0 Intake (Blood Product) Amt Plt Pheresis C Leukoreduced Unit [id number] Rbc As-3 Leukoreduced Unit 0 / 0 [id number] Output: Urine 1150 / 1150 500 / 500 Other: Date of Last Bowel Movement 08/02/18 08/03/18 08/03/18 # Bowel Movements 1 <Car Doherty - Last Filed: 08/03/18 16:55> Results - Labs CBC & Chem 7: 08/03/18 03:54 08/03/18 03:54 Laboratory Results - last 24 hr 08/02/18 08/02/18 08/02/18 03:51 06:08 06:37 WBC RBC Hgb Hct MCV MCH MCHC RDW Plt Count MPV Prelim Diff (Auto) Neut % (Auto) Lymph % (Auto) Petroleum % (Auto) Eos % (Auto) Baso % (Auto) Neut # (Auto) Lymph # (Auto) Petroleum # (Auto) Eos # (Auto) Baso # (Auto) WBC Differential Diff Scan Differential Comment Platelet Estimate Platelet Morphology PT INR APTT Sodium Potassium Chloride Carbon Dioxide Anion Gap BUN Creatinine Estimated GFR POC Glucose Random Glucose Calcium Phosphorus Magnesium Total Bilirubin AST ALT Alkaline Phosphatase Total Creatine Kinase CK-MB (CK-2) CK-MB (CK-2) % Troponin I Total Protein Albumin Nasal Screen MRSA (PCR) Not detected Bld Prod Order Comment 08/02/18 08/02/18 08/02/18 09:55 09:55 12:55 WBC 4.6 RBC 2.92 L Hgb 8.2 L Hct 24.7 L MCV 84.4 MCH 27.9 MCHC 33.1 RDW 20.7 H Plt Count 13 L* D MPV 8.2 Prelim Diff (Auto) Slide review pending Neut % (Auto) 86.0 H Lymph % (Auto) 11.2 Petroleum % (Auto) 2.5 Eos % (Auto) 0.2 Baso % (Auto) 0.1 Neut # (Auto) 3.9 Lymph # (Auto) 0.5 L Petroleum # (Auto) 0.1 Eos # (Auto) 0.0 Baso # (Auto) 0.0 WBC Differential . Diff Scan Auto diff confirmed Differential Comment . Platelet Estimate Rare L Platelet Morphology Enlarged H PT INR APTT Sodium 138 Potassium 4.4 Chloride 105 Carbon Dioxide 22.1 Anion Gap 11 BUN 22 H Creatinine 1.12 Estimated GFR 63 L POC Glucose 279 H Random Glucose 237 H Calcium 8.5 Phosphorus 2.8 Magnesium 1.5 Total Bilirubin 1.3 H AST 20 ALT 19 Alkaline Phosphatase 55 Total Creatine Kinase CK-MB (CK-2) CK-MB (CK-2) % Troponin I Total Protein 6.6 D Albumin 3.4 D Nasal Screen MRSA (PCR) Bld Prod Order Comment 08/02/18 08/02/18 08/02/18 16:03 17:18 23:35 WBC 4.8 RBC 2.82 L Hgb 8.0 L Hct 23.1 L MCV 82.2 MCH 28.4 MCHC 34.5 RDW 20.3 H Plt Count 15 L* MPV 9.2 Prelim Diff (Auto) Neut % (Auto) Lymph % (Auto) Petroleum % (Auto) Eos % (Auto) Baso % (Auto) Neut # (Auto) Lymph # (Auto) Petroleum # (Auto) Eos # (Auto) Baso # (Auto) WBC Differential Diff Scan Differential Comment Platelet Estimate Platelet Morphology PT INR APTT Sodium Potassium Chloride Carbon Dioxide Anion Gap BUN Creatinine Estimated GFR POC Glucose 250 H 248 H Random Glucose Calcium Phosphorus Magnesium Total Bilirubin AST ALT Alkaline Phosphatase Total Creatine Kinase CK-MB (CK-2) CK-MB (CK-2) % Troponin I Total Protein Albumin Nasal Screen MRSA (PCR) Bld Prod Order Comment 08/03/18 08/03/18 08/03/18 03:54 03:54 03:54 WBC 7.4 D RBC 2.54 L Hgb 7.2 L Hct 21.3 L MCV 83.7 MCH 28.3 MCHC 33.8 RDW 20.5 H Plt Count 5 L* D MPV 11.5 H Prelim Diff (Auto) Slide review pending Neut % (Auto) 88.8 H Lymph % (Auto) 8.4 L Petroleum % (Auto) 2.7 Eos % (Auto) 0.0 Baso % (Auto) 0.1 Neut # (Auto) 6.5 Lymph # (Auto) 0.6 L Petroleum # (Auto) 0.2 Eos # (Auto) 0.0 Baso # (Auto) 0.0 WBC Differential . Diff Scan Auto diff confirmed Differential Comment . Platelet Estimate Rare L Platelet Morphology Enlarged H PT 12.6 H INR 1.2 APTT 22.8 L Sodium 138 Potassium 3.9 Chloride 105 Carbon Dioxide 23.0 Anion Gap 10 BUN 20 H Creatinine 0.96 Estimated GFR 75 L POC Glucose Random Glucose 217 H Calcium 8.1 L Phosphorus 2.8 Magnesium 1.5 Total Bilirubin 0.7 AST 22 ALT 18 Alkaline Phosphatase 46 Total Creatine Kinase CK-MB (CK-2) CK-MB (CK-2) % Troponin I Total Protein 5.8 L D Albumin 2.9 L Nasal Screen MRSA (PCR) Bld Prod Order Comment 08/03/18 08/03/18 05:08 08:56 WBC RBC Hgb Hct MCV MCH MCHC RDW Plt Count MPV Prelim Diff (Auto) Neut % (Auto) Lymph % (Auto) Petroleum % (Auto) Eos % (Auto) Baso % (Auto) Neut # (Auto) Lymph # (Auto) Petroleum # (Auto) Eos # (Auto) Baso # (Auto) WBC Differential Diff Scan Differential Comment Platelet Estimate Platelet Morphology PT INR APTT Sodium Potassium Chloride Carbon Dioxide Anion Gap BUN Creatinine Estimated GFR POC Glucose 248 H Random Glucose Calcium Phosphorus Magnesium Total Bilirubin AST ALT Alkaline Phosphatase Total Creatine Kinase 358 H CK-MB (CK-2) 3.9 H CK-MB (CK-2) % 1.1 Troponin I 0.04 Total Protein Albumin Nasal Screen MRSA (PCR) Bld Prod Order Comment <Melania Evans - Last Filed: 08/03/18 10:22> - Labs CBC & Chem 7: 08/03/18 08:56 08/03/18 03:54 Laboratory Results - last 24 hr 08/02/18 08/02/18 08/02/18 03:51 04:15 06:08 WBC RBC Hgb Hct MCV MCH MCHC RDW Plt Count MPV Prelim Diff (Auto) Neut % (Auto) Lymph % (Auto) Petroleum % (Auto) Eos % (Auto) Baso % (Auto) Neut # (Auto) Lymph # (Auto) Petroleum # (Auto) Eos # (Auto) Baso # (Auto) WBC Differential Diff Scan Differential Comment Platelet Estimate Platelet Morphology Ovalocytes Acanthocytes (Spur) PT INR APTT Sodium Potassium Chloride Carbon Dioxide Anion Gap BUN Creatinine Estimated GFR POC Glucose Random Glucose Calcium Phosphorus Magnesium Total Bilirubin AST ALT Alkaline Phosphatase Total Creatine Kinase CK-MB (CK-2) CK-MB (CK-2) % Troponin I Total Protein Albumin MTS Gel Crossmatch See Detail Bld Prod Order Comment 08/02/18 08/02/18 08/02/18 16:03 17:18 23:35 WBC 4.8 RBC 2.82 L Hgb 8.0 L Hct 23.1 L MCV 82.2 MCH 28.4 MCHC 34.5 RDW 20.3 H Plt Count 15 L* MPV 9.2 Prelim Diff (Auto) Neut % (Auto) Lymph % (Auto) Petroleum % (Auto) Eos % (Auto) Baso % (Auto) Neut # (Auto) Lymph # (Auto) Petroleum # (Auto) Eos # (Auto) Baso # (Auto) WBC Differential Diff Scan Differential Comment Platelet Estimate Platelet Morphology Ovalocytes Acanthocytes (Spur) PT INR APTT Sodium Potassium Chloride Carbon Dioxide Anion Gap BUN Creatinine Estimated GFR POC Glucose 250 H 248 H Random Glucose Calcium Phosphorus Magnesium Total Bilirubin AST ALT Alkaline Phosphatase Total Creatine Kinase CK-MB (CK-2) CK-MB (CK-2) % Troponin I Total Protein Albumin MTS Gel Crossmatch Bld Prod Order Comment 08/03/18 08/03/18 08/03/18 03:54 03:54 03:54 WBC 7.4 D RBC 2.54 L Hgb 7.2 L Hct 21.3 L MCV 83.7 MCH 28.3 MCHC 33.8 RDW 20.5 H Plt Count 5 L* D MPV 11.5 H Prelim Diff (Auto) Slide review pending Neut % (Auto) 88.8 H Lymph % (Auto) 8.4 L Petroleum % (Auto) 2.7 Eos % (Auto) 0.0 Baso % (Auto) 0.1 Neut # (Auto) 6.5 Lymph # (Auto) 0.6 L Petroleum # (Auto) 0.2 Eos # (Auto) 0.0 Baso # (Auto) 0.0 WBC Differential . Diff Scan Auto diff confirmed Differential Comment . Platelet Estimate Rare L Platelet Morphology Enlarged H Ovalocytes Acanthocytes (Spur) PT 12.6 H INR 1.2 APTT 22.8 L Sodium 138 Potassium 3.9 Chloride 105 Carbon Dioxide 23.0 Anion Gap 10 BUN 20 H Creatinine 0.96 Estimated GFR 75 L POC Glucose Random Glucose 217 H Calcium 8.1 L Phosphorus 2.8 Magnesium 1.5 Total Bilirubin 0.7 AST 22 ALT 18 Alkaline Phosphatase 46 Total Creatine Kinase CK-MB (CK-2) CK-MB (CK-2) % Troponin I Total Protein 5.8 L D Albumin 2.9 L MTS Gel Crossmatch Bld Prod Order Comment 08/03/18 08/03/18 08/03/18 05:08 08:56 08:56 WBC 9.0 RBC 2.55 L Hgb 7.2 L Hct 21.4 L MCV 84.0 MCH 28.1 MCHC 33.4 RDW 20.8 H Plt Count 5 L* MPV 10.4 Prelim Diff (Auto) Slide review pending Neut % (Auto) 89.6 H Lymph % (Auto) 7.2 L Petroleum % (Auto) 3.1 Eos % (Auto) 0.0 Baso % (Auto) 0.1 Neut # (Auto) 8.1 H Lymph # (Auto) 0.6 L Petroleum # (Auto) 0.3 Eos # (Auto) 0.0 Baso # (Auto) 0.0 WBC Differential . Diff Scan Auto diff confirmed Differential Comment . Platelet Estimate Rare L Platelet Morphology Normal Ovalocytes 1+ H Acanthocytes (Spur) Occ H PT INR APTT Sodium Potassium Chloride Carbon Dioxide Anion Gap BUN Creatinine Estimated GFR POC Glucose 248 H Random Glucose Calcium Phosphorus Magnesium Total Bilirubin AST ALT Alkaline Phosphatase Total Creatine Kinase 358 H CK-MB (CK-2) 3.9 H CK-MB (CK-2) % 1.1 Troponin I 0.04 Total Protein Albumin MTS Gel Crossmatch Bld Prod Order Comment 08/03/18 08/03/18 11:54 13:11 WBC RBC Hgb Hct MCV MCH MCHC RDW Plt Count MPV Prelim Diff (Auto) Neut % (Auto) Lymph % (Auto) Petroleum % (Auto) Eos % (Auto) Baso % (Auto) Neut # (Auto) Lymph # (Auto) Petroleum # (Auto) Eos # (Auto) Baso # (Auto) WBC Differential Diff Scan Differential Comment Platelet Estimate Platelet Morphology Ovalocytes Acanthocytes (Spur) PT INR APTT Sodium Potassium Chloride Carbon Dioxide Anion Gap BUN Creatinine Estimated GFR POC Glucose 365 H Random Glucose Calcium Phosphorus Magnesium Total Bilirubin AST ALT Alkaline Phosphatase Total Creatine Kinase CK-MB (CK-2) CK-MB (CK-2) % Troponin I Total Protein Albumin MTS Gel Crossmatch See Detail Bld Prod Order Comment <Car Doherty - Last Filed: 08/03/18 16:55> Assessment and Plan - Plan Assessment Bright red blood per rectumpatient reports he has been having bright red blood per rectum for the past 2-3 days. It has become so severe that he is been wearing a depend to keep from saturating his shorts. Reports that the blood is mixed with stool. Reports fecal urgency and incontinence. States in the past he has had small amounts of bright or blood in the toilet paper when he wipes, made his PCP aware of this he reports that is probably secondary to hemorrhoids nothing to be concerned about. Patient denies any associated nausea, vomiting, abdominal pain, unintentional weight loss. Has never had an EGD or colonoscopy. Denies taking any blood thinners. 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 Prostate cancer status post 45 treatments of radiation completed in July 2017 and patient reports once a month injections that he finished in April of this year. Thrombocytopeniaplatelet count currently 3. Patient does have history of thrombocytopenia but has never been this low according to previous chart review. States that he has not seen a information systems consultant or oncologist in the past. (08/03) Pt S/P 2 U of platelets yesterday, some improvement and then dropped to 5 again today. Small amount of BRB in stool this AM. 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 Plan Severe thrombocytopenia, no invasive procedures planned at this time Hydrocortisone suppository and enema Hematology input appreciated S/P 2 U of platelets yesterday Solumedrol At this time recommend continuation of supportive care with blood transfusions as needed Colonoscopy when platelet count improves Further recommendations to follow This patient has been seen and examined by myself and Dr. Doherty this note was written on his behalf <Melania Evans - Last Filed: 08/03/18 10:22> - Plan Seen and examined with TEST MANAGER< some bleeding reported. NO gi interventions due to severe thrombocytopenia. <Car Doherty - Last Filed: 08/03/18 16:55>
[2018-08-03 11:20] LABS: Ovalocytes 1+
[2018-08-03 11:21] LABS: Acanthocytes Occ; Platelet Estimate Rare (Normal); Platelet Morphology Normal (Normal)
[2018-08-03] MEDS ORDERED: Acetaminophen 325 MG Tablet PO PRN (13:11)
[2018-08-03] MEDS: Acetaminophen 325 MG Tablet PO PRN (13:32)
--- NOTE | 2018-08-03 13:59 | P.PNONC ---
Subjective Interval history: Patient lying in bed, no acute distress. He is afebrile. Patient appears oriented, however he confuses me with someone else several times during the examination. RN is at the bedside. She reports patient has had an increase in ST depression on the ECG monitoring compared to yesterday. He denies any chest pain or shortness of breath. He reports that he had some blood in his stool this a.m., and he is unsure if he has had any further bleeding as he now has a diaper on. Patient is noted to have a small amount dark blood with clot in his diaper. Objective Vital Signs/Intake & Output: Vital Signs 08/02/18 14:00 08/02/18 16:00 08/02/18 18:00 Temperature 97.8 F Pulse Rate 89 93 H 84 Respiratory Rate 15 22 17 Blood Pressure 125/59 L 131/61 125/58 L Pulse Oximetry 97 98 97 08/02/18 19:00 08/02/18 20:00 08/02/18 20:01 Temperature 97.8 F Pulse Rate 78 77 Respiratory Rate 19 Blood Pressure 117/52 L Pulse Oximetry 96 95 08/02/18 20:23 08/02/18 21:00 08/02/18 22:00 Temperature Pulse Rate 73 71 Respiratory Rate 16 17 Blood Pressure 106/51 L 118/56 L Pulse Oximetry 96 95 96 08/02/18 23:00 08/02/18 23:02 08/02/18 23:34 Temperature Pulse Rate 99 H 102 H 77 Respiratory Rate 37 H 33 H 23 Blood Pressure 186/116 H 128/58 L Pulse Oximetry 99 92 L 99 08/03/18 00:00 08/03/18 01:00 08/03/18 02:00 Temperature 97.9 F Pulse Rate 67 65 67 Respiratory Rate 15 18 14 Blood Pressure 123/57 L 126/60 Pulse Oximetry 95 97 100 08/03/18 02:01 08/03/18 03:00 08/03/18 03:01 Temperature Pulse Rate 67 64 63 Respiratory Rate 11 L 13 15 Blood Pressure 127/62 136/59 L Pulse Oximetry 100 97 94 L 08/03/18 04:00 08/03/18 05:00 08/03/18 05:01 Temperature 97.7 F Pulse Rate 66 66 68 Respiratory Rate 16 12 14 Blood Pressure 149/64 H 134/63 Pulse Oximetry 100 95 95 08/03/18 06:00 08/03/18 06:01 08/03/18 07:00 Temperature Pulse Rate 65 66 65 Respiratory Rate 12 14 13 Blood Pressure 143/63 H 157/67 H Pulse Oximetry 95 96 99 08/03/18 08:00 08/03/18 08:01 08/03/18 08:14 Temperature 98.1 F Pulse Rate 84 83 Respiratory Rate 34 H 33 H Blood Pressure 163/63 H Pulse Oximetry 96 98 97 08/03/18 09:00 08/03/18 09:01 08/03/18 10:00 Temperature Pulse Rate 80 81 72 Respiratory Rate 25 H 17 18 Blood Pressure 155/64 H Pulse Oximetry 100 100 99 08/03/18 10:01 Temperature Pulse Rate 73 Respiratory Rate 22 Blood Pressure 142/59 H Pulse Oximetry 99 Intake & Output 08/02/18 08/03/18 08/03/18 18:59 06:59 18:59 Intake Total 1850 / 1850 1000 / 1000 100 / 100 Output Total 1150 / 1150 500 / 500 Balance 700 / 700 500 / 500 100 / 100 Intake: IV 1100 / 1100 1000 / 1000 100 / 100 NS Inj 1,000 ML @ 75 mls/hr IV. 1000 / 1000 1000 / 1000 CONT .[id number] MERON Rx#:[id number] SoluMEDROL Inj 250 MG In NS Inj 100 / 100 96 ML @ 200 mls/hr IV.SIG Q8H MERON Rx#:[id number] Oral 750 / 750 0 / 0 Output: Urine 1150 / 1150 500 / 500 Other: Date of Last Bowel Movement 08/02/18 08/03/18 08/03/18 # Bowel Movements 1 Result Diagrams: 08/03/18 20:14 08/03/18 03:54 Laboratory Results: Laboratory Results - last 24 hr 08/02/18 08/02/18 08/02/18 03:51 04:15 06:08 WBC RBC Hgb Hct MCV MCH MCHC RDW Plt Count MPV Prelim Diff (Auto) Neut % (Auto) Lymph % (Auto) [place] % (Auto) Eos % (Auto) Baso % (Auto) Neut # (Auto) Lymph # (Auto) [place] # (Auto) Eos # (Auto) Baso # (Auto) WBC Differential Diff Scan Differential Comment Platelet Estimate Platelet Morphology Ovalocytes Acanthocytes (Spur) PT INR APTT Sodium Potassium Chloride Carbon Dioxide Anion Gap BUN Creatinine Estimated GFR POC Glucose Random Glucose Calcium Phosphorus Magnesium Total Bilirubin AST ALT Alkaline Phosphatase Total Creatine Kinase CK-MB (CK-2) CK-MB (CK-2) % Troponin I Total Protein Albumin Nasal Screen MRSA (PCR) MTS Gel Crossmatch See Detail Bld Prod Order Comment 08/02/18 08/02/18 08/02/18 06:37 16:03 17:18 WBC 4.8 RBC 2.82 L Hgb 8.0 L Hct 23.1 L MCV 82.2 MCH 28.4 MCHC 34.5 RDW 20.3 H Plt Count 15 L* MPV 9.2 Prelim Diff (Auto) Neut % (Auto) Lymph % (Auto) [place] % (Auto) Eos % (Auto) Baso % (Auto) Neut # (Auto) Lymph # (Auto) [place] # (Auto) Eos # (Auto) Baso # (Auto) WBC Differential Diff Scan Differential Comment Platelet Estimate Platelet Morphology Ovalocytes Acanthocytes (Spur) PT INR APTT Sodium Potassium Chloride Carbon Dioxide Anion Gap BUN Creatinine Estimated GFR POC Glucose 250 H Random Glucose Calcium Phosphorus Magnesium Total Bilirubin AST ALT Alkaline Phosphatase Total Creatine Kinase CK-MB (CK-2) CK-MB (CK-2) % Troponin I Total Protein Albumin Nasal Screen MRSA (PCR) Not detected MTS Gel Crossmatch Bld Prod Order Comment 08/02/18 08/03/18 08/03/18 23:35 03:54 03:54 WBC 7.4 D RBC 2.54 L Hgb 7.2 L Hct 21.3 L MCV 83.7 MCH 28.3 MCHC 33.8 RDW 20.5 H Plt Count 5 L* D MPV 11.5 H Prelim Diff (Auto) Slide review pending Neut % (Auto) 88.8 H Lymph % (Auto) 8.4 L [place] % (Auto) 2.7 Eos % (Auto) 0.0 Baso % (Auto) 0.1 Neut # (Auto) 6.5 Lymph # (Auto) 0.6 L [place] # (Auto) 0.2 Eos # (Auto) 0.0 Baso # (Auto) 0.0 WBC Differential . Diff Scan Auto diff confirmed Differential Comment . Platelet Estimate Rare L Platelet Morphology Enlarged H Ovalocytes Acanthocytes (Spur) PT 12.6 H INR 1.2 APTT 22.8 L Sodium Potassium Chloride Carbon Dioxide Anion Gap BUN Creatinine Estimated GFR POC Glucose 248 H Random Glucose Calcium Phosphorus Magnesium Total Bilirubin AST ALT Alkaline Phosphatase Total Creatine Kinase CK-MB (CK-2) CK-MB (CK-2) % Troponin I Total Protein Albumin Nasal Screen MRSA (PCR) MTS Gel Crossmatch Bld Prod Order Comment 08/03/18 08/03/18 08/03/18 03:54 05:08 08:56 WBC RBC Hgb Hct MCV MCH MCHC RDW Plt Count MPV Prelim Diff (Auto) Neut % (Auto) Lymph % (Auto) [place] % (Auto) Eos % (Auto) Baso % (Auto) Neut # (Auto) Lymph # (Auto) [place] # (Auto) Eos # (Auto) Baso # (Auto) WBC Differential Diff Scan Differential Comment Platelet Estimate Platelet Morphology Ovalocytes Acanthocytes (Spur) PT INR APTT Sodium 138 Potassium 3.9 Chloride 105 Carbon Dioxide 23.0 Anion Gap 10 BUN 20 H Creatinine 0.96 Estimated GFR 75 L POC Glucose 248 H Random Glucose 217 H Calcium 8.1 L Phosphorus 2.8 Magnesium 1.5 Total Bilirubin 0.7 AST 22 ALT 18 Alkaline Phosphatase 46 Total Creatine Kinase 358 H CK-MB (CK-2) 3.9 H CK-MB (CK-2) % 1.1 Troponin I 0.04 Total Protein 5.8 L D Albumin 2.9 L Nasal Screen MRSA (PCR) MTS Gel Crossmatch Bld Prod Order Comment 08/03/18 08/03/18 08/03/18 08:56 11:54 13:11 WBC 9.0 RBC 2.55 L Hgb 7.2 L Hct 21.4 L MCV 84.0 MCH 28.1 MCHC 33.4 RDW 20.8 H Plt Count 5 L* MPV 10.4 Prelim Diff (Auto) Slide review pending Neut % (Auto) 89.6 H Lymph % (Auto) 7.2 L [place] % (Auto) 3.1 Eos % (Auto) 0.0 Baso % (Auto) 0.1 Neut # (Auto) 8.1 H Lymph # (Auto) 0.6 L [place] # (Auto) 0.3 Eos # (Auto) 0.0 Baso # (Auto) 0.0 WBC Differential . Diff Scan Auto diff confirmed Differential Comment . Platelet Estimate Rare L Platelet Morphology Normal Ovalocytes 1+ H Acanthocytes (Spur) Occ H PT INR APTT Sodium Potassium Chloride Carbon Dioxide Anion Gap BUN Creatinine Estimated GFR POC Glucose 365 H Random Glucose Calcium Phosphorus Magnesium Total Bilirubin AST ALT Alkaline Phosphatase Total Creatine Kinase CK-MB (CK-2) CK-MB (CK-2) % Troponin I Total Protein Albumin Nasal Screen MRSA (PCR) MTS Gel Crossmatch See Detail Bld Prod Order Comment Medications: Active Medications Generic Name Dose Route Start Last Admin Trade Name Freq PRN Reason Stop Dose Admin Acetaminophen 650 mg 08/02/18 04:18 08/03/18 13:32 Tylenol PO 650 mg Q6H PRN Administration PAIN 1-10 AND/OR FEVER >101F Chlorhexidine Gluconate 3 pack 08/03/18 04:00 08/03/18 03:40 Chlorhexidine 2% Cloth TOPICAL 08/08/18 03:59 3 pack DAILY@0400 MERON Administration Diphenhydramine HCl 25 mg 08/03/18 13:11 08/03/18 13:32 Benadryl PO 25 mg Q4H PRN Administration SEE LABEL COMMENTS Hydrocortisone Acetate 100 mg 08/02/18 21:00 08/02/18 21:05 Cortenema RECTAL Not Given HS MERON Hydrocortisone Acetate 25 mg 08/02/18 21:00 08/03/18 09:59 Hemorrhoidal Hc Supp RECTAL Not Given BID MERON Methylprednisolone Sodium 100 mls @ 200 mls/hr 08/03/18 10:00 08/03/18 12:09 Succinate 250 mg/ Sodium IV.SIG Infused Chloride Q8H MERON Infusion Insulin Aspart 0 unit 08/02/18 06:00 08/03/18 12:08 Novolog Insulin Correctional Sugar Inj SQ 12 unit Q6HR MERON Administration Protocol Pantoprazole Sodium 40 mg 08/02/18 05:00 08/03/18 04:32 Protonix Inj IV.PUSH 40 mg Q12H MERON Administration Senna/Docusate Sodium 1 tab 08/02/18 09:00 08/03/18 10:00 Lisa-Colace PO Not Given BID MERON Sodium Chloride 2 ml 08/02/18 09:00 08/03/18 09:59 Ns Flush IV.FLUSH 2 ml BID MERON Administration Tamsulosin HCl 0.4 mg 08/02/18 09:00 08/03/18 09:59 Flomax PO 0.4 mg DAILY MERON Administration Objective Remarks: GENERAL: Ill-appearing elderly male patient, in no acute distress. SKIN: Pale, warm and dry. Ecchymosis to left inner arm. HEAD: Normocephalic. EYES: No scleral icterus. No injection or drainage. NECK: Supple, trachea midline. CARDIOVASCULAR: Regular rate and rhythm without murmurs. ST depression on ECG monitor. RESPIRATORY: Breath sounds clear, equal bilaterally. Nonlabored at rest. GASTROINTESTINAL: Abdomen soft, non-tender, nondistended. Small amount of dark blood with clot in diaper. EXTREMITIES: No cyanosis, or edema. MUSCULOSKELETAL: Decreased muscle tone. NEUROLOGICAL: No obvious focal deficit. Awake, alert, and oriented x3. PSYCHIATRIC: Appropriate mood and affect. Assessment/Plan - Plan Mr. Butterfield is a pleasant 83-year-old male patient who is currently hospitalized for a GI bleed. Hematology was consulted for severe thrombocytopenia. 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 Plan: 1. Acute ITP. Continue IV steroids. Platelets today 5000. Patient with evidence of continued GI bleed. We will transfuse 1 unit of platelets today. 2. Anemia, hemoglobin 7.2 today. Patient appears symptomatic with an increase in ST depression noted on ECG monitoring by nursing staff. Per RN waistline joiner lockstitch is aware. We will transfuse 1 unit of PRBCs for symptomatic anemia. 3. GI bleed, management per GI and waistline joiner lockstitch. 4. Repeat CBC at 1600 today. Continue to monitor daily. - Attending Statement Pt seen in room and d/w RESIN SHAVER. Steroids dose increased this am. Agree with platelet transfusion for sypmtomatic thrombocytopenia. If no response to high dose solumedrol, will add Rituxan / Cytoxan. D/w pt.
[2018-08-03] MEDS ORDERED: Sodium Chlor 0.9% Inj 250 ML IV.SIG SCH (14:00)
[2018-08-03 20:59] LABS: Baso % (Auto) 0.1 % (0.0-2.0); Hematocrit 23.1 % (39.0-51.0); Hemoglobin 7.8 gm/dL (13.0-17.0); Lymph # (Auto) 0.5 th/mm3 (1.0-4.8); Lymph % (Auto) 4.6 % (9.0-44.0); Mean Corpuscular HGB Conc 33.5 % (32.0-36.0); Mean Corpuscular Hemoglobin 28.3 pg (27.0-34.0); Mean Corpuscular Volume 84.3 fL (80.0-100.0); Mean Platelet Volume 8.6 fL (7.0-11.0); Mono # (Auto) 0.3 th/mm3 (0.0-0.9); Mono % (Auto) 2.5 % (0.0-8.0); Neut # (Auto) 10.9 th/mm3 (1.8-7.7); Neut % (Auto) 92.8 % (16.0-70.0); Red Blood Count 2.74 mil/mm3 (4.50-5.90); Red Cell Distribution Width 19.5 % (11.6-17.2); White Blood Count 11.8 th/mm3 (4.0-11.0)
[2018-08-03 21:03] LABS: Platelet Count 14 th/mm3 (150-450)
[2018-08-03 21:25] LABS: Platelet Estimate Rare (Normal); Platelet Morphology Normal (Normal)
[2018-08-04] MEDS: Insulin NovoLOG Aspart Correctional Sugar Inj SQ SCH ×5 (00:50→23:35)
[2018-08-04] MEDS: SODIUM CHLOR 0.9% IV.SIG SCH ×3 (02:21→17:31)
[2018-08-04] MEDS: METHYLPREDNISOLONE SOD SUC IV.SIG SCH ×3 (02:21→17:31)
[2018-08-04] MEDS: Pantoprazole Inj 40 MG Vial IV.PUSH SCH ×2 (06:18→17:31)
[2018-08-04] MEDS: Chlorhexidine Gluconate 2% 1 Pack (2 Cloths) TOPICAL SCH (06:18)
--- NOTE | 2018-08-04 07:28 | P.PNCC ---
Subjective Subjective Remarks/Hospital Course: 83-year-old very pleasant gentleman with history of prostate cancer on hormonal therapy with the last course received in end of May, presents with generalized weakness and gross blood on rectal exam with very loose watery blood. Patient initially was hypotensive prior to arrival with the blood pressure 80/50, after liter of fluid prior to arrival by EVAC the patient's blood pressure now 120/59. Laboratory abnormalities notable for a platelet count of 7000, hemoglobin of 7.1. These are critical levels and a 6 pack of platelets as well as 2 PRBCs now and 2 in reserve been ordered by ED attending, as well as Protonix drip, and octreotide. The patient does have a history of prostate cancer, he has been on Firmagon from his urology/oncologist. 08/03 Patient is lying in bed in NAD. s/p 2u PLT and 2u PRBC yesterday PLT 5 this morning. 08/04 No events overnight. s/p transfusion 1u PLT and 1 u PRBC yesterday PLT count 14 last night from 5. Objective Vital Signs / I&O: Vital Signs 08/03/18 08:00 08/03/18 08:01 08/03/18 08:14 Temperature 98.1 F Pulse Rate 84 83 Respiratory Rate 34 H 33 H Blood Pressure 163/63 H Pulse Oximetry 96 98 97 08/03/18 09:00 08/03/18 09:01 08/03/18 10:00 Temperature Pulse Rate 80 81 72 Respiratory Rate 25 H 17 18 Blood Pressure 155/64 H Pulse Oximetry 100 100 99 08/03/18 10:01 08/03/18 11:00 08/03/18 12:00 Temperature 98.0 F Pulse Rate 73 87 89 Respiratory Rate 22 17 22 Blood Pressure 142/59 H 134/59 L Pulse Oximetry 99 100 99 08/03/18 12:01 08/03/18 13:00 08/03/18 13:01 Temperature Pulse Rate 90 100 H 100 H Respiratory Rate 25 H 18 26 H Blood Pressure 138/58 L 132/70 Pulse Oximetry 97 100 100 08/03/18 14:00 08/03/18 14:01 08/03/18 14:24 Temperature 98.2 F 98.2 F Pulse Rate 116 H 114 H 108 H Respiratory Rate 25 H 26 H 26 H Blood Pressure 106/62 106/62 Pulse Oximetry 99 100 99 10/11/18 14:41 08/03/18 15:00 08/03/18 15:04 Temperature 98.3 F 98.3 F Pulse Rate 100 H 100 H 98 H Respiratory Rate 21 23 22 Blood Pressure 105/60 100/58 L 100/58 L Pulse Oximetry 100 100 100 08/03/18 15:36 08/03/18 16:00 08/03/18 16:44 Temperature 97.8 F 97.8 F Pulse Rate 96 H 98 H 101 H Respiratory Rate 24 33 H 25 H Blood Pressure 100/58 L 99/56 L 162/67 H Pulse Oximetry 100 100 100 08/03/18 17:00 08/03/18 17:01 08/03/18 18:00 Temperature Pulse Rate 102 H 99 H 90 Respiratory Rate 30 H 37 H 29 H Blood Pressure 105/54 L Pulse Oximetry 98 98 97 08/03/18 18:01 08/03/18 19:00 08/03/18 20:00 Temperature 97.9 F Pulse Rate 100 H 115 H 109 H Respiratory Rate 23 22 32 H Blood Pressure 147/72 H 125/70 145/64 H Pulse Oximetry 97 99 100 08/03/18 21:00 08/03/18 21:01 08/03/18 21:18 Temperature Pulse Rate 96 H 100 H Respiratory Rate 26 H 28 H Blood Pressure 131/63 Pulse Oximetry 96 96 98 08/03/18 22:00 08/03/18 22:20 08/03/18 23:00 Temperature Pulse Rate 86 101 H 82 Respiratory Rate 18 31 H 16 Blood Pressure 117/53 L Pulse Oximetry 96 97 96 08/03/18 23:01 08/04/18 00:00 08/04/18 01:00 Temperature 97.9 F Pulse Rate 81 82 85 Respiratory Rate 22 18 17 Blood Pressure 113/73 131/56 L Pulse Oximetry 95 96 100 08/04/18 01:01 08/04/18 02:00 08/04/18 03:00 Temperature Pulse Rate 81 90 83 Respiratory Rate 15 23 17 Blood Pressure 130/63 112/70 133/66 Pulse Oximetry 100 100 96 08/04/18 04:00 08/04/18 05:00 08/04/18 05:01 Temperature Pulse Rate 118 H 84 85 Respiratory Rate 38 H 27 H 25 H Blood Pressure 147/67 H 109/53 L Pulse Oximetry 98 89 L 92 L 08/04/18 06:00 Temperature Pulse Rate 84 Respiratory Rate 23 Blood Pressure 103/53 L Pulse Oximetry 94 L Intake & Output 08/03/18 08/04/18 08/04/18 18:59 06:59 18:59 Intake Total 1591 / 1591 200 / 200 Output Total 1100 / 1100 875 / 875 Balance 491 / 491 -675 / -675 Weight 89 kg Intake: IV 100 / 100 200 / 200 SoluMEDROL Inj 250 MG In NS Inj 100 / 100 200 / 200 96 ML @ 200 mls/hr IV.SIG Q8H [facility]ON Rx#:[id number] Oral 900 / 900 0 / 0 Intake (Blood Product) Amt 591 / 591 Plt Pheresis C Leukoreduced 191 / 191 Unit [id number] Rbc As-3 Leukoreduced Unit 400 / 400 [id number] Output: Urine 1100 / 1100 875 / 875 Other: Date of Last Bowel Movement 08/03/18 08/03/18 # Bowel Movements 1 Result Diagrams: 08/03/18 20:14 08/03/18 03:54 Other Results: Laboratory Results - last 12 hr 08/03/18 08/04/18 08/04/18 20:14 00:39 05:32 WBC 11.8 H RBC 2.74 L Hgb 7.8 L Hct 23.1 L MCV 84.3 MCH 28.3 MCHC 33.5 RDW 19.5 H Plt Count 14 L* D MPV 8.6 Prelim Diff (Auto) Slide review pending Neut % (Auto) 92.8 H Lymph % (Auto) 4.6 L [place] % (Auto) 2.5 Eos % (Auto) 0.0 Baso % (Auto) 0.1 Neut # (Auto) 10.9 H Lymph # (Auto) 0.5 L [place] # (Auto) 0.3 Eos # (Auto) 0.0 Baso # (Auto) 0.0 WBC Differential . Diff Scan Auto diff confirmed Differential Comment . Platelet Estimate Rare L Platelet Morphology Normal POC Glucose 316 H 256 H Imaging: Abdomen/Pelvis CT 08/02/18 04:01 CONCLUSION: 1. 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 2. Nonacute findings include severe atherosclerotic disease, cholelithiasis, stable complex cystic lesion of the left kidney measuring 6.5 cm, and cirrhotic liver. Head CT 08/02/18 04:01 CONCLUSION: No acute intracranial abnormality is identified. . Objective Remarks: GENERAL: Patient is 83 yo lying in bed in NAD SKIN: Warm and dry. HEAD: Normocephalic. EYES: No scleral icterus. No injection or drainage. NECK: Supple, trachea midline. No JVD or lymphadenopathy. CARDIOVASCULAR: Regular rate and rhythm without murmurs, gallops, or rubs. RESPIRATORY: Breath sounds equal bilaterally. No accessory muscle use. GASTROINTESTINAL: Abdomen soft, non-tender, nondistended. MUSCULOSKELETAL: No cyanosis, or edema. Neuro: Awake and alert Assessment and Plan - Assessment and Plan Plan: Severe thrombocytopenia Anemia ? GI bleed Hyperglycemia Hx DM Hx Prostate ca s/p radiation tx. Proctitis per CT abd. Plan Neuro: Awake, alert. Monitor neuro status and avoid sedatives. CT brain: No acute findings Pulm: Oxygen PRN keep sats >92% Bronchodilators CV: Monitor HR and BP keep MAP>65mmHg Follow up on echo results : Monitor renal function, I/O's, electrolytes replacement per protocol. GI: Start PO cardiac diet. On Protonix 40mg BID GI is following. On Hydrocortisone supp BID ID: Monitor for signs of infections ( fever, WBC) Heme: Monitor CBC, coags, s/p transfusion 2u PRBC and 2 u PLT 10 PLT 5 this morning. s/p transfusion 1 unit PLT and 1 u PRBC 08/03 Hematology is following- on solumederol 125mg IV Q8 for likely ITP. Endo: Medium SSI for glycemic control, add Levemir 5u BID DVT GI prophylaxis -Teds SCDs -No pharmacological DVT prophylaxis due to severe thrombocytopenia and GI bleed -Protonix IV twice daily Follow up on labs Level 3
[2018-08-04 08:19] LABS: Baso % (Auto) 0.1 % (0.0-2.0); Hematocrit 22.9 % (39.0-51.0); Hemoglobin 7.7 gm/dL (13.0-17.0); Lymph # (Auto) 0.5 th/mm3 (1.0-4.8); Lymph % (Auto) 4.6 % (9.0-44.0); Mean Corpuscular HGB Conc 33.7 % (32.0-36.0); Mean Corpuscular Hemoglobin 28.6 pg (27.0-34.0); Mono # (Auto) 0.3 th/mm3 (0.0-0.9); Mono % (Auto) 3.3 % (0.0-8.0); Neut # (Auto) 9.8 th/mm3 (1.8-7.7); Red Blood Count 2.69 mil/mm3 (4.50-5.90); Red Cell Distribution Width 19.2 % (11.6-17.2); White Blood Count 10.6 th/mm3 (4.0-11.0)
[2018-08-04 08:30] LABS: Carbon Dioxide 22.9 meq/L (21.0-32.0); Magnesium 1.7 mg/dL (1.5-2.5); Phosphorus 2.4 mg/dL (2.5-4.9); Potassium 3.6 meq/L (3.5-5.1)
[2018-08-04 08:44] LABS: Platelet Count 8 th/mm3 (150-450)
--- NOTE | 2018-08-04 09:03 | ECHRPT ---
Indication: Shortness of Breath CONCLUSIONS The left ventricular systolic function is severely reduced with an estimated ejection fraction in th e range of 30-35%. Mild mitral valve regurgitation. The estimated pulmonary arterial pressure is 42 mmHg. technically difficult study with off axis views making interpretation of regional wall abnormalities difficult. BP: / HR: Rhythm: MEASUREMENTS (Male / Female) Normal Values Technical Quality:Poor 2D ECHO LV Diastolic Diameter PLAX 5.9 cm 4.2 - 5.9 / 3.9 - 5.3 cm LV Systolic Diameter PLAX 4.7 cm IVS Diastolic Thickness 1.2 cm 0.6 - 1.0 / 0.6 - 0.9 cm LVPW Diastolic Thickness 1.2 cm 0.6 - 1.0 / 0.6 - 0.9 cm LV Relative Wall Thickness 0.4 RV Internal Dim ED PLAX 3.0 cm LVOT Diameter 2.2 cm Aortic Root Diameter 3.9 cm LA Systolic Diameter LX 4.0 cm 3.0 - 4.0 / 2.7 - 3.8 cm DOPPLER AV Peak Velocity 132.0 cm/s AV Peak Gradient 7.0 mmHg LVOT Peak Velocity 101.0 cm/s LVOT Peak Gradient 4.1 mmHg AV Area Cont Eq pk 2.9 cm MV Peak Velocity 103.0 cm/s MV Peak Gradient 4.2 mmHg MV Mean Velocity 66.0 cm/s MV Mean Gradient 2.0 mmHg Mitral E Point Velocity 136.0 cm/s LV E' Lateral Velocity 15.7 cm/s Mitral E to LV E' Lateral Ratio 8.7 LV E' Septal Velocity 6.7 cm/s Mitral E to LV E' Septal Ratio 20.2 TR Peak Velocity 282.0 cm/s TR Peak Gradient 31.8 mmHg Right Atrial Pressure 10.0 mmHg Pulmonary Artery Systolic Pressu 41.8 mmHg Right Ventricular Systolic Press 41.8 mmHg PV Peak Velocity 130.0 cm/s PV Peak Gradient 6.8 mmHg FINDINGS LEFT VENTRICLE Mildly dilated left ventricle. Wall thickness is measured at the upper limits of normal. The left ventricular systolic function is severely reduced with an estimated ejection fraction in th e range of 30-35%. RIGHT VENTRICLE Normal right ventricular size and systolic function. LEFT ATRIUM The left atrial size is upper limits of normal. RIGHT ATRIUM The right atrial size is normal. ATRIAL SEPTUM Normal atrial septal thickness without atrial level shunting by limited color doppler interrogation. AORTA The aortic root and proximal ascending aorta are normal in size on limited imaging. MITRAL VALVE Mild mitral valve regurgitation. AORTIC VALVE Trileaflet aortic valve. No aortic valve stenosis or regurgitation. TRICUSPID VALVE There is trace tricuspid valve regurgitation. The estimated pulmonary arterial pressure is 42 mmHg. PULMONARY VALVE Trivial pulmonary valve regurgitation. VESSELS The inferior vena cava is normal in size. PERICARDIUM No pericardial effusion. Herminio Goodman MD (Electronically Signed) Final Date:04 August 2018 09:02
[2018-08-04 09:32] LABS: Lymphocytes 1 % (9-44); Monocytes 1 % (0-8)
[2018-08-04 09:33] LABS: Ovalocytes 1+; Platelet Estimate Rare (Normal); Platelet Morphology Normal (Normal)
[2018-08-04] MEDS: Senna/Docusate Sodium 8.6/50 MG Tablet PO SCH ×2 (09:50→21:01)
[2018-08-04] MEDS: Hydrocortisone Acetate 25 MG Supp RECTAL SCH ×2 (09:50→21:01)
[2018-08-04] MEDS: Insulin Detemir Inj 1,000 UNIT/10 ML Vial SQ SCH ×2 (09:50→21:01)
--- NOTE | 2018-08-04 11:22 | P.PNGI ---
Subjective Interval history: Patient is resting in bed, has had 2 bowel movements, and her states bloody. Patient has not been receiving suppositories or enemas due to low platelet count , per protocol not to be administered at this low of a platelet count. Denies nausea, vomiting, abdominal pain. Patient is eating breakfast during my exam tolerating p.o. <Melania Evans - Last Filed: 08/04/18 11:18> Physical Exam Vital signs: Vital Signs 08/03/18 12:00 08/03/18 12:01 08/03/18 13:00 Temperature 98.0 F Pulse Rate 89 90 100 H Respiratory Rate 22 25 H 18 Blood Pressure 138/58 L Pulse Oximetry 99 97 100 08/03/18 13:01 08/03/18 14:00 08/03/18 14:01 Temperature 98.2 F Pulse Rate 100 H 116 H 114 H Respiratory Rate 26 H 25 H 26 H Blood Pressure 132/70 106/62 Pulse Oximetry 100 99 100 08/03/18 14:24 08/03/18 14:41 08/03/18 15:00 Temperature 98.2 F 98.3 F Pulse Rate 108 H 100 H 100 H Respiratory Rate 26 H 21 23 Blood Pressure 106/62 105/60 100/58 L Pulse Oximetry 99 100 100 08/03/18 15:04 08/03/18 15:36 08/03/18 16:00 Temperature 98.3 F 97.8 F 97.8 F Pulse Rate 98 H 96 H 98 H Respiratory Rate 22 24 33 H Blood Pressure 100/58 L 100/58 L 99/56 L Pulse Oximetry 100 100 100 08/03/18 16:44 08/03/18 17:00 08/03/18 17:01 Temperature Pulse Rate 101 H 102 H 99 H Respiratory Rate 25 H 30 H 37 H Blood Pressure 162/67 H 105/54 L Pulse Oximetry 100 98 98 08/03/18 18:00 08/03/18 18:01 08/03/18 19:00 Temperature Pulse Rate 90 100 H 115 H Respiratory Rate 29 H 23 22 Blood Pressure 147/72 H 125/70 Pulse Oximetry 97 97 99 08/03/18 20:00 08/03/18 21:00 08/03/18 21:01 Temperature 97.9 F Pulse Rate 109 H 96 H 100 H Respiratory Rate 32 H 26 H 28 H Blood Pressure 145/64 H 131/63 Pulse Oximetry 100 96 96 08/03/18 21:18 08/03/18 22:00 08/03/18 22:20 Temperature Pulse Rate 86 101 H Respiratory Rate 18 31 H Blood Pressure 117/53 L Pulse Oximetry 98 96 97 08/03/18 23:00 08/03/18 23:01 08/04/18 00:00 Temperature 97.9 F Pulse Rate 82 81 82 Respiratory Rate 16 22 18 Blood Pressure 113/73 131/56 L Pulse Oximetry 96 95 96 08/04/18 01:00 08/04/18 01:01 08/04/18 02:00 Temperature Pulse Rate 85 81 90 Respiratory Rate 17 15 23 Blood Pressure 130/63 112/70 Pulse Oximetry 100 100 100 08/04/18 03:00 08/04/18 04:00 08/04/18 05:00 Temperature Pulse Rate 83 118 H 84 Respiratory Rate 17 38 H 27 H Blood Pressure 133/66 147/67 H Pulse Oximetry 96 98 89 L 08/04/18 05:01 08/04/18 06:00 08/04/18 07:00 Temperature Pulse Rate 85 84 104 H Respiratory Rate 25 H 23 29 H Blood Pressure 109/53 L 103/53 L Pulse Oximetry 92 L 94 L 94 L 08/04/18 07:01 08/04/18 08:00 08/04/18 08:35 Temperature Pulse Rate 102 H 101 H Respiratory Rate 39 H 35 H Blood Pressure 134/62 134/63 Pulse Oximetry 97 96 92 L 08/04/18 09:00 08/04/18 10:00 Temperature 97.7 F Pulse Rate 96 H 94 H Respiratory Rate 29 H 26 H Blood Pressure 147/67 H 144/69 H Pulse Oximetry 95 Intake & Output 08/03/18 08/04/18 08/04/18 18:59 06:59 18:59 Intake Total 1591 / 1591 200 / 200 Output Total 1100 / 1100 875 / 875 Balance 491 / 491 -675 / -675 Weight 89 kg Intake: IV 100 / 100 200 / 200 SoluMEDROL Inj 250 MG In NS Inj 100 / 100 200 / 200 96 ML @ 200 mls/hr IV.SIG Q8H [facility] Rx#:[id number] Oral 900 / 900 0 / 0 Intake (Blood Product) Amt 591 / 591 Plt Pheresis C Leukoreduced 191 / 191 Unit [id number] Rbc As-3 Leukoreduced Unit 400 / 400 [id number] Output: Urine 1100 / 1100 875 / 875 Other: Date of Last Bowel Movement 08/03/18 08/03/18 08/03/18 # Bowel Movements 1 - Constitutional no acute distress - Routine HEENT Exam Head: Present: normocephalic, atraumatic - Routine Respiratory Exam Absent: accessory muscle use - Routine Abdominal Exam Present: soft, normoactive bowel sounds, distended. Absent: tenderness - Routine Skin Exam Present: dry, warm - Routine Neurological Exam Present: alert, oriented X3 <Melania Evans - Last Filed: 08/04/18 11:18> Vital signs: Vital Signs 08/03/18 14:00 08/03/18 14:01 08/03/18 14:24 Temperature 98.2 F 98.2 F Pulse Rate 116 H 114 H 108 H Respiratory Rate 25 H 26 H 26 H Blood Pressure 106/62 106/62 Pulse Oximetry 99 100 99 08/03/18 14:41 08/03/18 15:00 08/03/18 15:04 Temperature 98.3 F 98.3 F Pulse Rate 100 H 100 H 98 H Respiratory Rate 21 23 22 Blood Pressure 105/60 100/58 L 100/58 L Pulse Oximetry 100 100 100 08/03/18 15:36 08/03/18 16:00 08/03/18 16:44 Temperature 97.8 F 97.8 F Pulse Rate 96 H 98 H 101 H Respiratory Rate 24 33 H 25 H Blood Pressure 100/58 L 99/56 L 162/67 H Pulse Oximetry 100 100 100 08/03/18 17:00 08/03/18 17:01 08/03/18 18:00 Temperature Pulse Rate 102 H 99 H 90 Respiratory Rate 30 H 37 H 29 H Blood Pressure 105/54 L Pulse Oximetry 98 98 97 08/03/18 18:01 08/03/18 19:00 08/03/18 20:00 Temperature 97.9 F Pulse Rate 100 H 115 H 109 H Respiratory Rate 23 22 32 H Blood Pressure 147/72 H 125/70 145/64 H Pulse Oximetry 97 99 100 08/03/18 21:00 08/03/18 21:01 08/03/18 21:18 Temperature Pulse Rate 96 H 100 H Respiratory Rate 26 H 28 H Blood Pressure 131/63 Pulse Oximetry 96 96 98 08/03/18 22:00 08/03/18 22:20 08/03/18 23:00 Temperature Pulse Rate 86 101 H 82 Respiratory Rate 18 31 H 16 Blood Pressure 117/53 L Pulse Oximetry 96 97 96 08/03/18 23:01 08/04/18 00:00 08/04/18 01:00 Temperature 97.9 F Pulse Rate 81 82 85 Respiratory Rate 22 18 17 Blood Pressure 113/73 131/56 L Pulse Oximetry 95 96 100 08/04/18 01:01 08/04/18 02:00 08/04/18 03:00 Temperature Pulse Rate 81 90 83 Respiratory Rate 15 23 17 Blood Pressure 130/63 112/70 133/66 Pulse Oximetry 100 100 96 08/04/18 04:00 08/04/18 05:00 08/04/18 05:01 Temperature Pulse Rate 118 H 84 85 Respiratory Rate 38 H 27 H 25 H Blood Pressure 147/67 H 109/53 L Pulse Oximetry 98 89 L 92 L 08/04/18 06:00 08/04/18 07:00 08/04/18 07:01 Temperature Pulse Rate 84 104 H 102 H Respiratory Rate 23 29 H 39 H Blood Pressure 103/53 L 134/62 Pulse Oximetry 94 L 94 L 97 08/04/18 08:00 08/04/18 08:35 08/04/18 09:00 Temperature 97.7 F Pulse Rate 101 H 96 H Respiratory Rate 35 H 29 H Blood Pressure 134/63 147/67 H Pulse Oximetry 96 92 L 95 08/04/18 10:00 08/04/18 11:00 08/04/18 12:00 Temperature Pulse Rate 94 H 85 88 Respiratory Rate 26 H 23 24 Blood Pressure 144/69 H 137/62 Pulse Oximetry 97 98 08/04/18 12:01 Temperature 97.7 F Pulse Rate 91 H Respiratory Rate 29 H Blood Pressure 116/57 L Pulse Oximetry 98 Intake & Output 08/03/18 08/04/18 08/04/18 18:59 06:59 18:59 Intake Total 1591 / 1591 200 / 200 Output Total 1100 / 1100 875 / 875 Balance 491 / 491 -675 / -675 Weight 89 kg Intake: IV 100 / 100 200 / 200 SoluMEDROL Inj 250 MG In NS Inj 100 / 100 200 / 200 96 ML @ 200 mls/hr IV.SIG Q8H [facility] Rx#:[id number] Oral 900 / 900 0 / 0 Intake (Blood Product) Amt 591 / 591 Plt Pheresis C Leukoreduced 191 / 191 Unit [id number] Rbc As-3 Leukoreduced Unit 400 / 400 [id number] Output: Urine 1100 / 1100 875 / 875 Other: Date of Last Bowel Movement 08/03/18 08/03/18 08/03/18 # Bowel Movements 1 <Car Doherty - Last Filed: 08/04/18 13:20> Results - Labs CBC & Chem 7: 08/04/18 05:37 08/04/18 05:37 Laboratory Results - last 24 hr 08/02/18 08/03/18 08/03/18 04:15 08:56 11:54 WBC RBC Hgb Hct MCV MCH MCHC RDW Plt Count MPV Prelim Diff (Auto) Neut % (Auto) Lymph % (Auto) Gregg % (Auto) Eos % (Auto) Baso % (Auto) Neut # (Auto) Lymph # (Auto) Gregg # (Auto) Eos # (Auto) Baso # (Auto) WBC Differential . Diff Scan Auto diff confirmed Seg Neuts % (Manual) Band Neuts % (Manual) Lymphocytes % (Manual) Monocytes % (Manual) Abs Neuts (Manual) Differential Comment Platelet Estimate Rare L Platelet Morphology Normal Ovalocytes 1+ H Acanthocytes (Spur) Occ H Sodium Potassium Chloride Carbon Dioxide Anion Gap BUN Creatinine Estimated GFR POC Glucose 365 H Random Glucose Calcium Phosphorus Magnesium MTS Gel Crossmatch See Detail Bld Prod Order Comment 08/03/18 08/03/18 08/03/18 13:11 18:30 20:14 WBC 11.8 H RBC 2.74 L Hgb 7.8 L Hct 23.1 L MCV 84.3 MCH 28.3 MCHC 33.5 RDW 19.5 H Plt Count 14 L* D MPV 8.6 Prelim Diff (Auto) Slide review pending Neut % (Auto) 92.8 H Lymph % (Auto) 4.6 L Gregg % (Auto) 2.5 Eos % (Auto) 0.0 Baso % (Auto) 0.1 Neut # (Auto) 10.9 H Lymph # (Auto) 0.5 L Gregg # (Auto) 0.3 Eos # (Auto) 0.0 Baso # (Auto) 0.0 WBC Differential . Diff Scan Auto diff confirmed Seg Neuts % (Manual) Band Neuts % (Manual) Lymphocytes % (Manual) Monocytes % (Manual) Abs Neuts (Manual) Differential Comment . Platelet Estimate Rare L Platelet Morphology Normal Ovalocytes Acanthocytes (Spur) Sodium Potassium Chloride Carbon Dioxide Anion Gap BUN Creatinine Estimated GFR POC Glucose 295 H Random Glucose Calcium Phosphorus Magnesium MTS Gel Crossmatch See Detail Bld Prod Order Comment 08/04/18 08/04/18 08/04/18 00:39 05:32 05:37 WBC 10.6 RBC 2.69 L Hgb 7.7 L Hct 22.9 L MCV 85.0 MCH 28.6 MCHC 33.7 RDW 19.2 H Plt Count 8 L* D MPV 9.0 Prelim Diff (Auto) Slide review pending Neut % (Auto) 92.0 H Lymph % (Auto) 4.6 L Gregg % (Auto) 3.3 Eos % (Auto) 0.0 Baso % (Auto) 0.1 Neut # (Auto) 9.8 H Lymph # (Auto) 0.5 L Gregg # (Auto) 0.3 Eos # (Auto) 0.0 Baso # (Auto) 0.0 WBC Differential Manual diff final Diff Scan Seg Neuts % (Manual) 88 H Band Neuts % (Manual) 10 H Lymphocytes % (Manual) 1 L Monocytes % (Manual) 1 Abs Neuts (Manual) 10.4 H Differential Comment . Platelet Estimate Rare L Platelet Morphology Normal Ovalocytes 1+ H Acanthocytes (Spur) Sodium Potassium Chloride Carbon Dioxide Anion Gap BUN Creatinine Estimated GFR POC Glucose 316 H 256 H Random Glucose Calcium Phosphorus Magnesium MTS Gel Crossmatch Bld Prod Order Comment 08/04/18 05:37 WBC RBC Hgb Hct MCV MCH MCHC RDW Plt Count MPV Prelim Diff (Auto) Neut % (Auto) Lymph % (Auto) Gregg % (Auto) Eos % (Auto) Baso % (Auto) Neut # (Auto) Lymph # (Auto) Gregg # (Auto) Eos # (Auto) Baso # (Auto) WBC Differential Diff Scan Seg Neuts % (Manual) Band Neuts % (Manual) Lymphocytes % (Manual) Monocytes % (Manual) Abs Neuts (Manual) Differential Comment Platelet Estimate Platelet Morphology Ovalocytes Acanthocytes (Spur) Sodium 140 Potassium 3.6 Chloride 105 Carbon Dioxide 22.9 Anion Gap 12 BUN 22 H Creatinine 1.00 Estimated GFR 71 L POC Glucose Random Glucose 220 H Calcium 8.0 L Phosphorus 2.4 L Magnesium 1.7 MTS Gel Crossmatch Bld Prod Order Comment <Melania Evans - Last Filed: 08/04/18 11:18> - Labs CBC & Chem 7: 08/04/18 05:37 08/04/18 05:37 Laboratory Results - last 24 hr 08/02/18 08/03/18 08/03/18 04:15 13:11 18:30 WBC RBC Hgb Hct MCV MCH MCHC RDW Plt Count MPV Prelim Diff (Auto) Neut % (Auto) Lymph % (Auto) Gregg % (Auto) Eos % (Auto) Baso % (Auto) Neut # (Auto) Lymph # (Auto) Gregg # (Auto) Eos # (Auto) Baso # (Auto) WBC Differential Diff Scan Seg Neuts % (Manual) Band Neuts % (Manual) Lymphocytes % (Manual) Monocytes % (Manual) Abs Neuts (Manual) Differential Comment Platelet Estimate Platelet Morphology Ovalocytes Haptoglobin Sodium Potassium Chloride Carbon Dioxide Anion Gap BUN Creatinine Estimated GFR POC Glucose 295 H Random Glucose Calcium Phosphorus Magnesium Lactate Dehydrogenase MTS Gel Crossmatch See Detail See Detail Bld Prod Order Comment 08/03/18 08/04/18 08/04/18 20:14 00:39 05:32 WBC 11.8 H RBC 2.74 L Hgb 7.8 L Hct 23.1 L MCV 84.3 MCH 28.3 MCHC 33.5 RDW 19.5 H Plt Count 14 L* D MPV 8.6 Prelim Diff (Auto) Slide review pending Neut % (Auto) 92.8 H Lymph % (Auto) 4.6 L Gregg % (Auto) 2.5 Eos % (Auto) 0.0 Baso % (Auto) 0.1 Neut # (Auto) 10.9 H Lymph # (Auto) 0.5 L Gregg # (Auto) 0.3 Eos # (Auto) 0.0 Baso # (Auto) 0.0 WBC Differential . Diff Scan Auto diff confirmed Seg Neuts % (Manual) Band Neuts % (Manual) Lymphocytes % (Manual) Monocytes % (Manual) Abs Neuts (Manual) Differential Comment . Platelet Estimate Rare L Platelet Morphology Normal Ovalocytes Haptoglobin Sodium Potassium Chloride Carbon Dioxide Anion Gap BUN Creatinine Estimated GFR POC Glucose 316 H 256 H Random Glucose Calcium Phosphorus Magnesium Lactate Dehydrogenase MTS Gel Crossmatch Bld Prod Order Comment 08/04/18 08/04/18 08/04/18 05:37 05:37 11:43 WBC 10.6 RBC 2.69 L Hgb 7.7 L Hct 22.9 L MCV 85.0 MCH 28.6 MCHC 33.7 RDW 19.2 H Plt Count 8 L* D MPV 9.0 Prelim Diff (Auto) Slide review pending Neut % (Auto) 92.0 H Lymph % (Auto) 4.6 L Gregg % (Auto) 3.3 Eos % (Auto) 0.0 Baso % (Auto) 0.1 Neut # (Auto) 9.8 H Lymph # (Auto) 0.5 L Gregg # (Auto) 0.3 Eos # (Auto) 0.0 Baso # (Auto) 0.0 WBC Differential Manual diff final Diff Scan Seg Neuts % (Manual) 88 H Band Neuts % (Manual) 10 H Lymphocytes % (Manual) 1 L Monocytes % (Manual) 1 Abs Neuts (Manual) 10.4 H Differential Comment . Platelet Estimate Rare L Platelet Morphology Normal Ovalocytes 1+ H Haptoglobin Sodium 140 Potassium 3.6 Chloride 105 Carbon Dioxide 22.9 Anion Gap 12 BUN 22 H Creatinine 1.00 Estimated GFR 71 L POC Glucose 312 H Random Glucose 220 H Calcium 8.0 L Phosphorus 2.4 L Magnesium 1.7 Lactate Dehydrogenase MTS Gel Crossmatch Bld Prod Order Comment 08/04/18 08/04/18 08/04/18 12:03 12:25 12:25 WBC RBC Hgb Hct MCV MCH MCHC RDW Plt Count MPV Prelim Diff (Auto) Neut % (Auto) Lymph % (Auto) Gregg % (Auto) Eos % (Auto) Baso % (Auto) Neut # (Auto) Lymph # (Auto) Gregg # (Auto) Eos # (Auto) Baso # (Auto) WBC Differential Diff Scan Seg Neuts % (Manual) Band Neuts % (Manual) Lymphocytes % (Manual) Monocytes % (Manual) Abs Neuts (Manual) Differential Comment Platelet Estimate Platelet Morphology Ovalocytes Haptoglobin 131 Sodium Potassium Chloride Carbon Dioxide Anion Gap BUN Creatinine Estimated GFR POC Glucose Random Glucose Calcium Phosphorus Magnesium Lactate Dehydrogenase 223 MTS Gel Crossmatch Bld Prod Order Comment <Car Doherty - Last Filed: 08/04/18 13:20> Assessment and Plan - Plan Assessment Bright red blood per rectumpatient reports he has been having bright red blood per rectum for the past 2-3 days. It has become so severe that he is been wearing a depend to keep from saturating his shorts. Reports that the blood is mixed with stool. Reports fecal urgency and incontinence. States in the past he has had small amounts of bright or blood in the toilet paper when he wipes, made his PCP aware of this he reports that is probably secondary to hemorrhoids nothing to be concerned about. Patient denies any associated nausea, vomiting, abdominal pain, unintentional weight loss. Has never had an EGD or colonoscopy. Denies taking any blood thinners. 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 Prostate cancer status post 45 treatments of radiation completed in July 2017 and patient reports once a month injections that he finished in April of this year. Thrombocytopeniaplatelet count currently 3. Patient does have history of thrombocytopenia but has never been this low according to previous chart review. States that he has not seen a financial analyst or oncologist in the past. (08/03) Pt S/P 2 U of platelets yesterday, some improvement and then dropped to 5 again today. Small amount of BRB in stool this AM. 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 (08/04) S/P Platelet transfusion, platelets back down to 8 today. Oncology noted to possibly adding Rituxan/Cytoxan. Per RN can not administer suppository or enema due to severe thrombocytopenia. Plan Severe thrombocytopenia, no invasive procedures planned at this time Hydrocortisone suppository and enema when able Hematology input appreciated S/P 2 U of platelets yesterday Solumedrol ? Ritxuan/Cytoxan At this time recommend continuation of supportive care with blood transfusions as needed Colonoscopy when platelet count improves Further recommendations to follow This patient's been seen and examined by myself and Dr. Doherty this note was written on his behalf. <Melania Evans - Last Filed: 08/04/18 11:18> - Plan Seen and examined with CHEMICAL PUMPER, still with intermittent rectal bleeding. On steroids. Colonoscopy once thrombocytopenia reverses. The exam, history, and the medical decision-making described in the above note were completed with the assistance of the mid-level provider. I reviewed and agree with the findings presented. I attest that I had a [id number] encounter with the patient on the same day, and personally performed and documented my assessment and findings in the medical record. <Car Doherty - Last Filed: 08/04/18 13:20>
[2018-08-04] MEDS ORDERED: IVIG IV.SIG ONE (12:06)
[2018-08-04] MEDS ORDERED: IVIG IMMUNE GLOBULIN IV.SIG ONE (14:00)
--- NOTE | 2018-08-04 15:53 | MH ---
cc: Benedicto Emery MD DATE OF ADMISSION: 08/02/2018 REASON FOR VISIT: Followup of ITP. HISTORY OF PRESENT ILLNESS: Mr. Butterfield is seen in room 510 today. He continues to be his usual self, but today he is much more talkative and he did have 1 episode of bright red blood per rectum, but no nausea or vomiting or hematemesis. No oropharyngeal bleeding. No fevers or night sweats. REVIEW OF SYSTEMS: No headaches, motor or sensory symptoms. No cough or hemoptysis. No abdominal pain or distention. Blood in the stool as mentioned. No frequency, urgency or hematuria. PHYSICAL EXAMINATION: GENERAL: No acute distress. VITAL SIGNS: Stable. He is afebrile. HEENT: Pallor present. Trace icterus present. No lymphadenopathy in the neck or axilla. HEENT without oropharyngeal bleeding. SKIN: With bruising on the upper extremities and no petechiae. NEUROLOGIC: Alert and oriented x4. No tremors. LUNGS: Clear to auscultation. ABDOMEN: Obese, distended, soft and nontender without palpable organomegaly. No free fluid clinically. EXTREMITIES: No edema or evidence of DVTs. Bruises as mentioned. LABORATORY DATA: White count 10.6, hemoglobin 7.7, platelets 8000. IMPRESSION AND PLAN: Clinically diagnosed ITP with GI bleed, mainly rectal bleeding, status post radiation to the prostate for prostate cancer. 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 His platelets have not improved with steroids and the initial improvement was only with platelet transfusion. Subsequently, there is decrease in platelets back to his baseline, which is less than 10,000. As a result, he should not have more platelet transfusions and will add IV immunoglobulin therapy to the steroids as Rituxan is likely to take 1-2 weeks for its beneficial effect. This was discussed with the patient and his , and they agreed to the plan. Reviewed side effects of immunoglobulins, including fluid overload, allergic reaction, hemolytic anemia, etc. We will order the necessary labs and see him in followup. Benedicto Emery MD [facility]/ , 03:39 PM , 03:46 PM
[2018-08-04 16:38] LABS: Hematocrit 22.6 % (39.0-51.0); Hemoglobin 7.3 gm/dL (13.0-17.0); Mean Corpuscular HGB Conc 32.4 % (32.0-36.0); Mean Corpuscular Hemoglobin 28.2 pg (27.0-34.0); Mean Platelet Volume 11.5 fL (7.0-11.0); Red Blood Count 2.59 mil/mm3 (4.50-5.90); White Blood Count 15.4 th/mm3 (4.0-11.0)
[2018-08-04 17:24] LABS: Platelet Count 4 th/mm3 (150-450)
[2018-08-04 17:31] LABS: Lactate Dehydrogenase 249 U/L (87-241)
[2018-08-04 22:19] LABS: Hematocrit 19.1 % (39.0-51.0); Lymph # (Auto) 0.5 th/mm3 (1.0-4.8); Lymph % (Auto) 5.4 % (9.0-44.0); Mean Corpuscular HGB Conc 33.5 % (32.0-36.0); Mean Corpuscular Hemoglobin 28.4 pg (27.0-34.0); Mean Corpuscular Volume 84.8 fL (80.0-100.0); Mean Platelet Volume 7.7 fL (7.0-11.0); Mono # (Auto) 0.5 th/mm3 (0.0-0.9); Mono % (Auto) 6.2 % (0.0-8.0); Neut # (Auto) 7.4 th/mm3 (1.8-7.7); Neut % (Auto) 88.4 % (16.0-70.0); Platelet Count 16 th/mm3 (150-450); Red Blood Count 2.25 mil/mm3 (4.50-5.90); Red Cell Distribution Width 18.4 % (11.6-17.2); White Blood Count 8.4 th/mm3 (4.0-11.0)
[2018-08-04 22:25] LABS: Hemoglobin 6.4 gm/dL (13.0-17.0)
[2018-08-04 22:54] LABS: Lymphocytes 3 % (9-44); Monocytes 2 % (0-8); Ovalocytes 1+; Rouleaux Present; Tallied Nucleated RBC 2 (0-0)
[2018-08-04] MEDS ORDERED: Sodium Chlor 0.9% Inj 250 ML IV.SIG SCH (23:00)
[2018-08-05] MEDS: METHYLPREDNISOLONE SOD SUC IV.SIG SCH ×3 (02:25→17:13)
[2018-08-05] MEDS: SODIUM CHLOR 0.9% IV.SIG SCH ×3 (02:25→17:13)
[2018-08-05] MEDS: Chlorhexidine Gluconate 2% 1 Pack (2 Cloths) TOPICAL SCH (03:06)
[2018-08-05] MEDS: Pantoprazole Inj 40 MG Vial IV.PUSH SCH ×2 (05:31→17:13)
[2018-08-05 06:23] LABS: Calcium 7.9 mg/dL (8.5-10.1); Carbon Dioxide 24.3 meq/L (21.0-32.0); Magnesium 1.7 mg/dL (1.5-2.5); Potassium 3.2 meq/L (3.5-5.1)
[2018-08-05 06:25] LABS: Phosphorus 2.2 mg/dL (2.5-4.9)
[2018-08-05] MEDS: Insulin NovoLOG Aspart Correctional Sugar Inj SQ SCH ×3 (06:51→17:36)
[2018-08-05] MEDS ORDERED: Potassium Phosphate 500 MG Soluble Tablet PO PRN ×2 (08:03→08:45)
[2018-08-05] MEDS ORDERED: Potassium Chlor 20 mEq Premix 20 MEQ/100 ML PIGGYBACK IV.SIG PRN (08:03)
[2018-08-05] MEDS ORDERED: Sodium Phosphate Inj 30 MMOL in Sodium Chlor 0.9% Inj 250 ML IV.SIG PRN (08:03)
[2018-08-05] MEDS ORDERED: Potassium Chlor 40 mEq Premix 40 MEQ/100 ML PIGGYBACK IV.SIG PRN ×2 (08:03)
[2018-08-05] MEDS ORDERED: Potassium Chloride 25 MEQ Effervescent Tablet PO PRN (08:03)
[2018-08-05] MEDS ORDERED: Magnesium Sulfate Inj 4 GM in Sodium Chlor 0.9% Inj 92 ML IV.SIG PRN (08:03)
[2018-08-05] MEDS ORDERED: Magnesium Oxide 400 MG Tablet PO PRN (08:03)
[2018-08-05] MEDS ORDERED: Magnesium Sulfate Inj 2 GM in Sodium Chlor 0.9% Inj 96 ML IV.SIG PRN (08:03)
[2018-08-05] MEDS ORDERED: Potassium Phosphate Inj 30 MMOL in Sodium Chlor 0.9% Inj 250 ML IV.SIG PRN (08:03)
--- NOTE | 2018-08-05 08:14 | P.PNCC ---
Subjective Subjective Remarks/Hospital Course: 83-year-old very pleasant gentleman with history of prostate cancer on hormonal therapy with the last course received in end of May, presents with generalized weakness and gross blood on rectal exam with very loose watery blood. Patient initially was hypotensive prior to arrival with the blood pressure 80/50, after liter of fluid prior to arrival by EVAC the patient's blood pressure now 120/59. Laboratory abnormalities notable for a platelet count of 7000, hemoglobin of 7.1. These are critical levels and a 6 pack of platelets as well as 2 PRBCs now and 2 in reserve been ordered by ED attending, as well as Protonix drip, and octreotide. The patient does have a history of prostate cancer, he has been on Firmagon from his urology/oncologist. 08/03 Patient is lying in bed in NAD. s/p 2u PLT and 2u PRBC yesterday PLT 5 this morning. 08/04 No events overnight. s/p transfusion 1u PLT and 1 u PRBC yesterday PLT count 14 last night from 5. 08/05 Patient s/p transfusion 2u PRBC and 1u PLT since yesterday. Afebrile. PLT count 16 last night. Objective Vital Signs / I&O: Vital Signs 08/04/18 08:35 08/04/18 09:00 08/04/18 10:00 Temperature 97.7 F Pulse Rate 96 H 94 H Respiratory Rate 29 H 26 H Blood Pressure 147/67 H 144/69 H Pulse Oximetry 92 L 95 08/04/18 11:00 08/04/18 12:00 08/04/18 12:01 Temperature 97.7 F Pulse Rate 85 88 91 H Respiratory Rate 23 24 29 H Blood Pressure 137/62 116/57 L Pulse Oximetry 97 98 98 08/04/18 13:00 08/04/18 13:52 08/04/18 14:00 Temperature Pulse Rate 83 100 H 99 H Respiratory Rate 21 24 24 Blood Pressure 134/68 125/61 Pulse Oximetry 100 94 L 95 08/04/18 14:23 08/04/18 15:00 08/04/18 16:00 Temperature 98 F Pulse Rate 112 H 120 H 99 H Respiratory Rate 15 27 H 23 Blood Pressure 125/61 130/83 120/73 Pulse Oximetry 95 94 L 08/04/18 16:38 08/04/18 17:00 10/12/18 18:00 Temperature 98 F Pulse Rate 93 H 94 H 101 H Respiratory Rate 20 24 25 H Blood Pressure 120/73 123/60 127/61 Pulse Oximetry 100 99 87 L 08/04/18 18:05 08/04/18 19:00 08/04/18 20:00 Temperature 97.6 F 99.0 F Pulse Rate 96 H 91 H 78 Respiratory Rate 16 26 H 19 Blood Pressure 127/61 138/93 H 144/67 H Pulse Oximetry 99 98 08/04/18 21:00 08/04/18 22:00 08/04/18 23:00 Temperature Pulse Rate 76 75 66 Respiratory Rate 19 18 17 Blood Pressure 119/57 L 118/57 L 107/51 L Pulse Oximetry 100 100 96 08/04/18 23:48 08/05/18 00:00 08/05/18 01:00 Temperature 97.7 F 97.7 F Pulse Rate 88 89 77 Respiratory Rate 18 18 21 Blood Pressure 107/51 L 113/53 L 125/60 Pulse Oximetry 99 98 99 08/05/18 02:00 08/05/18 03:00 08/05/18 04:00 Temperature 97.9 F Pulse Rate 66 70 71 Respiratory Rate 17 16 18 Blood Pressure 125/58 L 139/63 Pulse Oximetry 94 L 97 95 08/05/18 04:01 08/05/18 05:00 08/05/18 06:00 Temperature Pulse Rate 71 75 65 Respiratory Rate 20 21 18 Blood Pressure 125/58 L 140/64 127/60 Pulse Oximetry 94 L 98 89 L 08/05/18 07:51 Temperature Pulse Rate Respiratory Rate Blood Pressure Pulse Oximetry 95 Intake & Output 08/04/18 08/05/18 08/05/18 18:59 06:59 18:59 Intake Total 700 / 700 1140 / 1140 Output Total 850 / 850 Balance 700 / 700 290 / 290 Weight 88 kg Intake: IV 200 / 200 100 / 100 SoluMEDROL Inj 250 MG In NS Inj 200 / 200 100 / 100 96 ML @ 200 mls/hr IV.SIG Q8H [facility] Rx#:[id number] Oral 500 / 500 240 / 240 Intake (Blood Product) Amt 0 / 0 800 / 800 Plt Pheresis A Leukoreduced 0 / 0 Unit [id number] Rbc As-3 Leukoreduced Unit 400 / 400 [id number] Rbc As-3 Leukoreduced Unit 0 / 0 400 / 400 [id number] Output: Urine 850 / 850 Other: # Voids 4 Date of Last Bowel Movement 08/03/18 08/03/18 # Bowel Movements 10 0 Result Diagrams: 08/04/18 22:08 08/05/18 05:01 Other Results: Laboratory Results - last 12 hr 08/02/18 08/04/18 08/04/18 04:15 17:27 22:08 WBC 8.4 RBC 2.25 L Hgb 6.4 L* Hct 19.1 L* MCV 84.8 MCH 28.4 MCHC 33.5 RDW 18.4 H Plt Count 16 L* D MPV 7.7 Prelim Diff (Auto) Slide review pending Neut % (Auto) 88.4 H Lymph % (Auto) 5.4 L [place] % (Auto) 6.2 Eos % (Auto) 0.0 Baso % (Auto) 0.0 Neut # (Auto) 7.4 Lymph # (Auto) 0.5 L [place] # (Auto) 0.5 Eos # (Auto) 0.0 Baso # (Auto) 0.0 WBC Differential Manual diff final Seg Neuts % (Manual) 93 H Band Neuts % (Manual) 2 Lymphocytes % (Manual) 3 L Monocytes % (Manual) 2 Abs Neuts (Manual) 8.0 H Nucleated RBCs/100 WBC 2 H Differential Comment . Platelet Estimate Low L Platelet Morphology Enlarged H Ovalocytes 1+ H Rouleaux Present H Sodium Potassium Chloride Carbon Dioxide Anion Gap BUN Creatinine Estimated GFR POC Glucose Random Glucose Calcium Phosphorus Magnesium MTS Gel Crossmatch See Detail See Detail 08/04/18 08/04/18 08/05/18 22:52 23:33 05:01 WBC RBC Hgb Hct MCV MCH MCHC RDW Plt Count MPV Prelim Diff (Auto) Neut % (Auto) Lymph % (Auto) [place] % (Auto) Eos % (Auto) Baso % (Auto) Neut # (Auto) Lymph # (Auto) [place] # (Auto) Eos # (Auto) Baso # (Auto) WBC Differential Seg Neuts % (Manual) Band Neuts % (Manual) Lymphocytes % (Manual) Monocytes % (Manual) Abs Neuts (Manual) Nucleated RBCs/100 WBC Differential Comment Platelet Estimate Platelet Morphology Ovalocytes Rouleaux Sodium 137 Potassium 3.2 L Chloride 103 Carbon Dioxide 24.3 Anion Gap 10 BUN 26 H Creatinine 1.12 Estimated GFR 63 L POC Glucose 324 H Random Glucose 245 H Calcium 7.9 L Phosphorus 2.2 L Magnesium 1.7 MTS Gel Crossmatch See Detail Imaging: Abdomen/Pelvis CT 08/02/18 04:01 CONCLUSION: 1. 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 2. Nonacute findings include severe atherosclerotic disease, cholelithiasis, stable complex cystic lesion of the left kidney measuring 6.5 cm, and cirrhotic liver. Head CT 08/02/18 04:01 CONCLUSION: No acute intracranial abnormality is identified. . Objective Remarks: GENERAL: Patient is 83 yo lying in bed in NAD SKIN: Warm and dry. HEAD: Normocephalic. EYES: No scleral icterus. No injection or drainage. NECK: Supple, trachea midline. No JVD or lymphadenopathy. CARDIOVASCULAR: Regular rate and rhythm without murmurs, gallops, or rubs. RESPIRATORY: Breath sounds equal bilaterally. No accessory muscle use. GASTROINTESTINAL: Abdomen soft, non-tender, nondistended. MUSCULOSKELETAL: No cyanosis, or edema. Neuro: Awake and alert Assessment and Plan - Assessment and Plan Plan: Severe thrombocytopenia Anemia ? GI bleed Hyperglycemia Hx DM Hx Prostate ca s/p radiation tx. Proctitis per CT abd. Plan Neuro: Awake, alert. Monitor neuro status and avoid sedatives. CT brain: No acute findings Pulm: Oxygen PRN keep sats >92% Bronchodilators. Check CXR CV: Monitor HR and BP keep MAP>65mmHg Echo showed severe LV dysfunction with EF 30-35% Check BNP, place on Lisinopril 2.5mg daily and coreg 3.125mg BID. Not a candidate for ASA due to severe thrombocytopenia : Monitor renal function, I/O's, electrolytes replacement per protocol. Will need K,Phos replacement today GI: On PO cardiac diet. Protonix 40mg BID GI is following. On Hydrocortisone supp BID ID: Monitor for signs of infections ( fever, WBC) Heme: Monitor CBC, coags, s/p transfusion 2u PRBC and 2 u PLT 08/02 PLT 5 this morning. s/p transfusion 1 unit PLT and 1 u PRBC 08/03 s/p transfusion 2u PRBC, 1u PLT 08/04 Hematology is following- on solumederol 250mg IV Q8, s/p IgG for ITP. Endo: Medium SSI for glycemic control, increase Levemir 10u BID DVT GI prophylaxis -Teds SCDs -No pharmacological DVT prophylaxis due to severe thrombocytopenia and GI bleed -Protonix IV twice daily Follow up on labs Level 3
--- NOTE | 2018-08-05 08:46 | XR ---
EXAM DATE: 08/05/2018 8:08 AM EDT AGE/SEX: 83 years / Male INDICATIONS: Short of breath. CLINICAL DATA: This is the patient's subsequent encounter. Patient reports that signs and symptoms h ave been present for 4 - 6 days and indicates a pain score of 0/10. MEDICAL/SURGICAL HISTORY: . Dementia. Carcinoma, prostatic None. COMPARISON: December 27, 2017. FINDINGS: AP portable semiupright view of the chest and indicates moderate cardiomegaly, diffuse cephalization of pulmonary vasculature and bilateral predominantly basilar patchy airspace disease adjacent to the pulmonary vessels. Osseous structures are unremarkable. CONCLUSION: Radiographic findings consistent with congestive heart failure and pulmonary edema. These findings ar e new as compared to the CT of August 02, 2018 Electronically signed by: Stacie Olivares MD 08/05/2018 8:45 AM EDT
--- NOTE | 2018-08-05 08:55 | P.PNONC ---
Subjective Interval history: Afebrile. Patient status post 2 units PRBCs yesterday and 1 unit of platelets. He believes he had some rectal bleeding yesterday. He denies any other bleeding. CBC pending today. Objective Vital Signs/Intake & Output: Vital Signs 08/04/18 09:00 08/04/18 10:00 08/04/18 11:00 Temperature 97.7 F Pulse Rate 96 H 94 H 85 Respiratory Rate 29 H 26 H 23 Blood Pressure 147/67 H 144/69 H 137/62 Pulse Oximetry 95 97 08/04/18 12:00 08/04/18 12:01 08/04/18 13:00 Temperature 97.7 F Pulse Rate 88 91 H 83 Respiratory Rate 24 29 H 21 Blood Pressure 116/57 L Pulse Oximetry 98 98 100 08/04/18 13:52 08/04/18 14:00 08/04/18 14:23 Temperature Pulse Rate 100 H 99 H 112 H Respiratory Rate 24 24 15 Blood Pressure 134/68 125/61 125/61 Pulse Oximetry 94 L 95 08/04/18 15:00 08/04/18 16:00 08/04/18 16:38 Temperature 98 F 98 F Pulse Rate 120 H 99 H 93 H Respiratory Rate 27 H 23 20 Blood Pressure 130/83 120/73 120/73 Pulse Oximetry 95 94 L 100 08/04/18 17:00 08/04/18 18:00 08/04/18 18:05 Temperature 97.6 F Pulse Rate 94 H 101 H 96 H Respiratory Rate 24 25 H 16 Blood Pressure 123/60 127/61 127/61 Pulse Oximetry 99 87 L 08/04/18 19:00 08/04/18 20:00 08/04/18 21:00 Temperature 99.0 F Pulse Rate 91 H 78 76 Respiratory Rate 26 H 19 19 Blood Pressure 138/93 H 144/67 H 119/57 L Pulse Oximetry 99 98 100 08/04/18 22:00 08/04/18 23:00 08/04/18 23:48 Temperature 97.7 F Pulse Rate 75 66 88 Respiratory Rate 18 17 18 Blood Pressure 118/57 L 107/51 L 107/51 L Pulse Oximetry 100 96 99 08/05/18 00:00 08/05/18 01:00 08/05/18 02:00 Temperature 97.7 F Pulse Rate 89 77 66 Respiratory Rate 18 21 17 Blood Pressure 113/53 L 125/60 125/58 L Pulse Oximetry 98 99 94 L 08/05/18 03:00 08/05/18 04:00 08/05/18 04:01 Temperature 97.9 F Pulse Rate 70 71 71 Respiratory Rate 16 18 20 Blood Pressure 139/63 125/58 L Pulse Oximetry 97 95 94 L 08/05/18 05:00 08/05/18 06:00 08/05/18 07:51 Temperature Pulse Rate 75 65 Respiratory Rate 21 18 Blood Pressure 140/64 127/60 Pulse Oximetry 98 89 L 95 Intake & Output 08/04/18 08/05/18 08/05/18 18:59 06:59 18:59 Intake Total 700 / 700 1140 / 1140 Output Total 850 / 850 Balance 700 / 700 290 / 290 Weight 88 kg Intake: IV 200 / 200 100 / 100 SoluMEDROL Inj 250 MG In NS Inj 200 / 200 100 / 100 96 ML @ 200 mls/hr IV.SIG Q8H [facility] Rx#:[id number] Oral 500 / 500 240 / 240 Intake (Blood Product) Amt 0 / 0 800 / 800 Plt Pheresis A Leukoreduced 0 / 0 Unit [id number] Rbc As-3 Leukoreduced Unit 400 / 400 [id number] Rbc As-3 Leukoreduced Unit 0 / 0 400 / 400 [id number] Output: Urine 850 / 850 Other: # Voids 4 Date of Last Bowel Movement 08/03/18 08/03/18 # Bowel Movements 10 0 Result Diagrams: 08/05/18 09:42 08/05/18 05:01 Laboratory Results: Laboratory Results - last 24 hr 08/02/18 08/04/18 08/04/18 04:15 05:37 11:43 WBC RBC Hgb Hct MCV MCH MCHC RDW Plt Count MPV Prelim Diff (Auto) Neut % (Auto) Lymph % (Auto) [place] % (Auto) Eos % (Auto) Baso % (Auto) Neut # (Auto) Lymph # (Auto) [place] # (Auto) Eos # (Auto) Baso # (Auto) WBC Differential Manual diff final Seg Neuts % (Manual) 88 H Band Neuts % (Manual) 10 H Lymphocytes % (Manual) 1 L Monocytes % (Manual) 1 Abs Neuts (Manual) 10.4 H Nucleated RBCs/100 WBC Differential Comment Platelet Estimate Rare L Platelet Morphology Normal Ovalocytes 1+ H Rouleaux Haptoglobin Sodium Potassium Chloride Carbon Dioxide Anion Gap BUN Creatinine Estimated GFR POC Glucose 312 H Random Glucose Calcium Phosphorus Magnesium Lactate Dehydrogenase Rho(D) Type MTS Gel Crossmatch See Detail Bld Prod Order Comment 08/04/18 08/04/18 08/04/18 12:00 12:03 12:25 WBC RBC Hgb Hct MCV MCH MCHC RDW Plt Count MPV Prelim Diff (Auto) Neut % (Auto) Lymph % (Auto) [place] % (Auto) Eos % (Auto) Baso % (Auto) Neut # (Auto) Lymph # (Auto) [place] # (Auto) Eos # (Auto) Baso # (Auto) WBC Differential Seg Neuts % (Manual) Band Neuts % (Manual) Lymphocytes % (Manual) Monocytes % (Manual) Abs Neuts (Manual) Nucleated RBCs/100 WBC Differential Comment Platelet Estimate Platelet Morphology Ovalocytes Rouleaux Haptoglobin Sodium Potassium Chloride Carbon Dioxide Anion Gap BUN Creatinine Estimated GFR POC Glucose Random Glucose Calcium Phosphorus Magnesium Lactate Dehydrogenase 223 Rho(D) Type Positive MTS Gel Crossmatch Bld Prod Order Comment 08/04/18 08/04/18 08/04/18 12:25 16:09 16:09 WBC 15.4 H RBC 2.59 L Hgb 7.3 L Hct 22.6 L MCV 87.0 MCH 28.2 MCHC 32.4 RDW 20.0 H Plt Count 4 L* D MPV 11.5 H Prelim Diff (Auto) Neut % (Auto) Lymph % (Auto) [place] % (Auto) Eos % (Auto) Baso % (Auto) Neut # (Auto) Lymph # (Auto) [place] # (Auto) Eos # (Auto) Baso # (Auto) WBC Differential Seg Neuts % (Manual) Band Neuts % (Manual) Lymphocytes % (Manual) Monocytes % (Manual) Abs Neuts (Manual) Nucleated RBCs/100 WBC Differential Comment Platelet Estimate Platelet Morphology Ovalocytes Rouleaux Haptoglobin 131 131 Sodium Potassium Chloride Carbon Dioxide Anion Gap BUN Creatinine Estimated GFR POC Glucose Random Glucose Calcium Phosphorus Magnesium Lactate Dehydrogenase 249 H Rho(D) Type MTS Gel Crossmatch Bld Prod Order Comment 08/04/18 08/04/18 08/04/18 16:43 17:27 22:08 WBC 8.4 RBC 2.25 L Hgb 6.4 L* Hct 19.1 L* MCV 84.8 MCH 28.4 MCHC 33.5 RDW 18.4 H Plt Count 16 L* D MPV 7.7 Prelim Diff (Auto) Slide review pending Neut % (Auto) 88.4 H Lymph % (Auto) 5.4 L [place] % (Auto) 6.2 Eos % (Auto) 0.0 Baso % (Auto) 0.0 Neut # (Auto) 7.4 Lymph # (Auto) 0.5 L [place] # (Auto) 0.5 Eos # (Auto) 0.0 Baso # (Auto) 0.0 WBC Differential Manual diff final Seg Neuts % (Manual) 93 H Band Neuts % (Manual) 2 Lymphocytes % (Manual) 3 L Monocytes % (Manual) 2 Abs Neuts (Manual) 8.0 H Nucleated RBCs/100 WBC 2 H Differential Comment . Platelet Estimate Low L Platelet Morphology Enlarged H Ovalocytes 1+ H Rouleaux Present H Haptoglobin Sodium Potassium Chloride Carbon Dioxide Anion Gap BUN Creatinine Estimated GFR POC Glucose 404 H Random Glucose Calcium Phosphorus Magnesium Lactate Dehydrogenase Rho(D) Type MTS Gel Crossmatch See Detail Bld Prod Order Comment 08/04/18 08/04/18 08/05/18 22:52 23:33 05:01 WBC RBC Hgb Hct MCV MCH MCHC RDW Plt Count MPV Prelim Diff (Auto) Neut % (Auto) Lymph % (Auto) [place] % (Auto) Eos % (Auto) Baso % (Auto) Neut # (Auto) Lymph # (Auto) [place] # (Auto) Eos # (Auto) Baso # (Auto) WBC Differential Seg Neuts % (Manual) Band Neuts % (Manual) Lymphocytes % (Manual) Monocytes % (Manual) Abs Neuts (Manual) Nucleated RBCs/100 WBC Differential Comment Platelet Estimate Platelet Morphology Ovalocytes Rouleaux Haptoglobin Sodium 137 Potassium 3.2 L Chloride 103 Carbon Dioxide 24.3 Anion Gap 10 BUN 26 H Creatinine 1.12 Estimated GFR 63 L POC Glucose 324 H Random Glucose 245 H Calcium 7.9 L Phosphorus 2.2 L Magnesium 1.7 Lactate Dehydrogenase Rho(D) Type MTS Gel Crossmatch See Detail Bld Prod Order Comment Imaging Studies: Impressions Chest X-Ray 08/05/18 08:08 CONCLUSION: Radiographic findings consistent with congestive heart failure and pulmonary edema. These findings are new as compared to the CT of August 02, 2018 Medications: Active Medications Generic Name Dose Route Start Last Admin Trade Name Freq PRN Reason Stop Dose Admin Acetaminophen 650 mg 08/02/18 04:18 08/03/18 13:32 Tylenol PO 650 mg Q6H PRN Administration PAIN 1-10 AND/OR FEVER >101F Chlorhexidine Gluconate 3 pack 08/03/18 04:00 08/05/18 03:06 Chlorhexidine 2% Cloth TOPICAL 08/08/18 03:59 3 pack DAILY@0400 MERON Administration Diphenhydramine HCl 25 mg 08/03/18 13:11 08/03/18 13:32 Benadryl PO 25 mg Q4H PRN Administration SEE LABEL COMMENTS Hydrocortisone Acetate 100 mg 08/02/18 21:00 08/04/18 21:01 Cortenema RECTAL Not Given HS MERON Hydrocortisone Acetate 25 mg 08/02/18 21:00 08/04/18 21:01 Hemorrhoidal Hc Supp RECTAL Not Given BID MERON Methylprednisolone Sodium 100 mls @ 200 mls/hr 08/03/18 10:00 08/05/18 05:32 Succinate 250 mg/ Sodium IV.SIG Infused Chloride Q8H MERON Infusion Sodium Chloride 250 mls @ 15 mls/hr 08/04/18 23:00 08/04/18 23:49 Ns Inj IV.SIG 08/05/18 15:39 15 mls/hr ONCE MERON Administration Insulin Aspart 0 unit 08/02/18 06:00 08/05/18 06:51 Novolog Insulin Correctional Sugar Inj SQ 4 unit Q6HR MERON Administration Protocol Pantoprazole Sodium 40 mg 08/02/18 05:00 08/05/18 05:31 Protonix Inj IV.PUSH 40 mg Q12H MERON Administration Senna/Docusate Sodium 1 tab 08/02/18 09:00 08/04/18 21:01 Lisa-Colace PO Not Given BID MERON Sodium Chloride 2 ml 08/02/18 09:00 08/05/18 08:33 Ns Flush IV.FLUSH 2 ml BID MERON Administration Tamsulosin HCl 0.4 mg 08/02/18 09:00 08/05/18 08:32 Flomax PO 0.4 mg DAILY MERON Administration Objective Remarks: GENERAL: Ill-appearing elderly male patient, in no acute distress. SKIN: Pale, warm and dry. Ecchymosis to left inner arm and bilateral hands. HEAD: Normocephalic. EYES: No scleral icterus. No injection or drainage. NECK: Supple, trachea midline. CARDIOVASCULAR: Regular rate and rhythm without murmurs. RESPIRATORY: Breath sounds clear, equal bilaterally. Nonlabored at rest. GASTROINTESTINAL: Abdomen soft, non-tender, nondistended. EXTREMITIES: No cyanosis, or edema. MUSCULOSKELETAL: Decreased muscle tone. NEUROLOGICAL: No obvious focal deficit. Awake, alert, and oriented x3. PSYCHIATRIC: Appropriate mood and affect. Assessment/Plan - Plan Mr. Butterfield is a pleasant 83-year-old male patient who is currently hospitalized for a GI bleed. Hematology was consulted for severe thrombocytopenia. 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 Plan: 1. Acute ITP. Continue IV steroids, status post immunoglobulin on 08/04/2018. Appears patient received 1 unit of platelets yesterday. Awaiting CBC today. 2. Anemia, awaiting CBC today. It appears the patient received 2 unit of PRBCs yesterday for hemoglobin of 6.4. 3. GI bleed, management per GI and special police officer. 4. Continue to monitor daily. - Attending Statement The exam, history, and the medical decision-making described in the above note were completed with the assistance of the mid-level provider. I reviewed and agree with the findings presented. I attest that I had a [id number] encounter with the patient on the same day, and personally performed and documented my assessment and findings in the medical record. Patient tolerated IVIG well yesterday. He denies any bleeding today. He will receive platelet and para blood cell transfusion yesterday. He remains on Solu-Medrol. Platelets stable at 16,000 today. Continue to monitor closely.
[2018-08-05] MEDS: Potassium Chlor 20 mEq Premix 20 MEQ/100 ML PIGGYBACK IV.SIG PRN ×4 (09:05→17:14)
[2018-08-05 10:06] LABS: Hematocrit 23.1 % (39.0-51.0); Hemoglobin 8.1 gm/dL (13.0-17.0); Mean Corpuscular HGB Conc 35.3 % (32.0-36.0); Mean Corpuscular Hemoglobin 29.5 pg (27.0-34.0); Mean Corpuscular Volume 83.6 fL (80.0-100.0); Mean Platelet Volume 9.6 fL (7.0-11.0); Red Blood Count 2.76 mil/mm3 (4.50-5.90); Red Cell Distribution Width 17.5 % (11.6-17.2); White Blood Count 7.3 th/mm3 (4.0-11.0)
[2018-08-05 10:16] LABS: Platelet Count 16 th/mm3 (150-450)
[2018-08-05] MEDS: Potassium Phosphate 500 MG Soluble Tablet PO PRN ×2 (10:44→13:03)
[2018-08-05] MEDS: Senna/Docusate Sodium 8.6/50 MG Tablet PO SCH ×2 (10:45→20:40)
[2018-08-05] MEDS: Lisinopril 5 MG Tablet PO SCH (10:45)
[2018-08-05] MEDS: Hydrocortisone Acetate 25 MG Supp RECTAL SCH ×2 (10:45→21:43)
[2018-08-05] MEDS: Insulin Detemir Inj 1,000 UNIT/10 ML Vial SQ SCH ×2 (10:45→20:39)
--- NOTE | 2018-08-05 13:12 | P.PNGI ---
Subjective Interval history: Pt is resting in bed, no more bleeding since yesterday afternoon. No nausea, no vomiting or abd pain <Rene Burton - Last Filed: 08/06/18 11:27> Physical Exam Vital signs: Vital Signs 08/04/18 23:00 08/04/18 23:48 08/05/18 00:00 Temperature 97.7 F 97.7 F Pulse Rate 66 88 89 Respiratory Rate 17 18 18 Blood Pressure 107/51 L 107/51 L 113/53 L Pulse Oximetry 96 99 98 08/05/18 01:00 08/05/18 02:00 08/05/18 03:00 Temperature Pulse Rate 77 66 70 Respiratory Rate 21 17 16 Blood Pressure 125/60 125/58 L 139/63 Pulse Oximetry 99 94 L 97 08/05/18 04:00 08/05/18 04:01 08/05/18 05:00 Temperature 97.9 F Pulse Rate 71 71 75 Respiratory Rate 18 20 21 Blood Pressure 125/58 L 140/64 Pulse Oximetry 95 94 L 98 08/05/18 06:00 08/05/18 07:00 08/05/18 07:01 Temperature Pulse Rate 65 66 68 Respiratory Rate 18 18 17 Blood Pressure 127/60 131/61 Pulse Oximetry 89 L 94 L 93 L 08/05/18 07:51 08/05/18 08:00 08/05/18 09:00 Temperature 97.6 F Pulse Rate 74 92 H Respiratory Rate 22 25 H Blood Pressure 134/61 135/64 Pulse Oximetry 95 97 90 L 08/05/18 09:58 08/05/18 10:00 08/05/18 10:07 Temperature Pulse Rate 83 88 84 Respiratory Rate 20 25 H 18 Blood Pressure 138/57 L 142/64 H Pulse Oximetry 100 92 L 100 08/05/18 11:00 08/05/18 11:01 08/05/18 12:00 Temperature 97.8 F Pulse Rate 81 80 78 Respiratory Rate 27 H 30 H 29 H Blood Pressure 106/62 106/62 117/61 Pulse Oximetry 99 99 100 08/05/18 13:00 08/05/18 14:00 08/05/18 14:15 Temperature Pulse Rate 81 84 86 Respiratory Rate 23 21 Blood Pressure 132/62 130/60 Pulse Oximetry 94 L 96 08/05/18 15:00 08/05/18 16:00 10/13/18 17:00 Temperature 98.0 F Pulse Rate 86 79 79 Respiratory Rate 23 29 H 24 Blood Pressure 120/56 L 129/58 L 123/57 L Pulse Oximetry 99 97 98 08/05/18 18:00 08/05/18 19:00 08/05/18 20:00 Temperature 98 F Pulse Rate 78 86 78 Respiratory Rate 18 29 H 34 H Blood Pressure 123/57 L 121/72 132/63 Pulse Oximetry 97 97 94 L 08/05/18 20:40 08/05/18 21:00 08/05/18 22:00 Temperature Pulse Rate 75 72 Respiratory Rate 19 18 Blood Pressure 127/58 L 131/60 Pulse Oximetry 96 95 96 Intake & Output 08/05/18 08/05/18 08/06/18 06:59 18:59 06:59 Intake Total 1140 / 1140 1820 / 1820 Output Total 850 / 850 1800 / 1800 Balance 290 / 290 20 / 20 Weight 88 kg Intake: IV 100 / 100 600 / 600 SoluMEDROL Inj 250 MG In NS Inj 100 / 100 200 / 200 96 ML @ 200 mls/hr IV.SIG Q8H MERON Rx#:[id number] KCl 20 mEq Premix Inj 20 meq In 400 / 400 100 ml @ 50 mls/hr IV.SIG Q2H PRN Rx#:[id number] Oral 240 / 240 1220 / 1220 Intake (Blood Product) Amt 800 / 800 Rbc As-3 Leukoreduced Unit 400 / 400 [id number] Rbc As-3 Leukoreduced Unit 400 / 400 [id number] Output: Urine 850 / 850 1800 / 1800 Other: Date of Last Bowel Movement 08/03/18 08/05/18 08/05/18 # Bowel Movements 0 1 <Mounika Ambrocio - Last Filed: 08/05/18 22:50> Vital signs: Vital Signs 08/04/18 13:52 08/04/18 14:00 08/04/18 14:23 Temperature Pulse Rate 100 H 99 H 112 H Respiratory Rate 24 24 15 Blood Pressure 134/68 125/61 125/61 Pulse Oximetry 94 L 95 08/04/18 15:00 08/04/18 16:00 08/04/18 16:38 Temperature 98 F 98 F Pulse Rate 120 H 99 H 93 H Respiratory Rate 27 H 23 20 Blood Pressure 130/83 120/73 120/73 Pulse Oximetry 95 94 L 100 08/04/18 17:00 08/04/18 18:00 08/04/18 18:05 Temperature 97.6 F Pulse Rate 94 H 101 H 96 H Respiratory Rate 24 25 H 16 Blood Pressure 123/60 127/61 127/61 Pulse Oximetry 99 87 L 08/04/18 19:00 08/04/18 20:00 08/04/18 21:00 Temperature 99.0 F Pulse Rate 91 H 78 76 Respiratory Rate 26 H 19 19 Blood Pressure 138/93 H 144/67 H 119/57 L Pulse Oximetry 99 98 100 08/04/18 22:00 08/04/18 23:00 08/04/18 23:48 Temperature 97.7 F Pulse Rate 75 66 88 Respiratory Rate 18 17 18 Blood Pressure 118/57 L 107/51 L 107/51 L Pulse Oximetry 100 96 99 08/05/18 00:00 08/05/18 01:00 08/05/18 02:00 Temperature 97.7 F Pulse Rate 89 77 66 Respiratory Rate 18 21 17 Blood Pressure 113/53 L 125/60 125/58 L Pulse Oximetry 98 99 94 L 08/05/18 03:00 08/05/18 04:00 08/05/18 04:01 Temperature 97.9 F Pulse Rate 70 71 71 Respiratory Rate 16 18 20 Blood Pressure 139/63 125/58 L Pulse Oximetry 97 95 94 L 08/05/18 05:00 08/05/18 06:00 08/05/18 07:51 Temperature Pulse Rate 75 65 Respiratory Rate 21 18 Blood Pressure 140/64 127/60 Pulse Oximetry 98 89 L 95 08/05/18 08:00 08/05/18 09:00 08/05/18 09:58 Temperature 97.6 F Pulse Rate 92 H 78 83 Respiratory Rate 16 20 Blood Pressure 135/64 Pulse Oximetry 100 100 Intake & Output 08/04/18 08/05/18 08/05/18 18:59 06:59 18:59 Intake Total 700 / 700 1140 / 1140 100 / 100 Output Total 850 / 850 Balance 700 / 700 290 / 290 100 / 100 Weight 88 kg Intake: IV 200 / 200 100 / 100 100 / 100 SoluMEDROL Inj 250 MG In NS Inj 200 / 200 100 / 100 96 ML @ 200 mls/hr IV.SIG Q8H MERON Rx#:[id number] KCl 20 mEq Premix Inj 20 meq In 100 / 100 100 ml @ 50 mls/hr IV.SIG Q2H PRN Rx#:[id number] Oral 500 / 500 240 / 240 Intake (Blood Product) Amt 0 / 0 800 / 800 Plt Pheresis A Leukoreduced 0 / 0 Unit [id number] Rbc As-3 Leukoreduced Unit 400 / 400 [id number] Rbc As-3 Leukoreduced Unit 0 / 0 400 / 400 [id number] Output: Urine 850 / 850 Other: # Voids 4 Date of Last Bowel Movement 08/03/18 08/03/18 08/05/18 # Bowel Movements 10 0 - Constitutional no acute distress - Routine Respiratory Exam Present: CTA bilaterally - Routine Cardiovascular Exam Present: RRR - Routine Abdominal Exam Present: soft, normoactive bowel sounds. Absent: tenderness, distended - Routine Skin Exam Present: intact, dry - Routine Neurological Exam Present: alert, oriented X3 <Rene Burton - Last Filed: 08/06/18 11:27> Results - Labs CBC & Chem 7: 08/05/18 09:42 08/05/18 21:10 Laboratory Results - last 24 hr 08/02/18 08/04/18 08/04/18 04:15 17:27 22:08 WBC RBC Hgb Hct MCV MCH MCHC RDW Plt Count MPV WBC Differential Manual diff final Seg Neuts % (Manual) 93 H Band Neuts % (Manual) 2 Lymphocytes % (Manual) 3 L Monocytes % (Manual) 2 Abs Neuts (Manual) 8.0 H Nucleated RBCs/100 WBC 2 H Platelet Estimate Low L Platelet Morphology Enlarged H Ovalocytes 1+ H Rouleaux Present H Sodium Potassium Chloride Carbon Dioxide Anion Gap BUN Creatinine Estimated GFR POC Glucose Random Glucose Calcium Phosphorus Magnesium B-Natriuretic Peptide MTS Gel Crossmatch See Detail See Detail 08/04/18 08/04/18 08/05/18 22:52 23:33 05:01 WBC RBC Hgb Hct MCV MCH MCHC RDW Plt Count MPV WBC Differential Seg Neuts % (Manual) Band Neuts % (Manual) Lymphocytes % (Manual) Monocytes % (Manual) Abs Neuts (Manual) Nucleated RBCs/100 WBC Platelet Estimate Platelet Morphology Ovalocytes Rouleaux Sodium 137 Potassium 3.2 L Chloride 103 Carbon Dioxide 24.3 Anion Gap 10 BUN 26 H Creatinine 1.12 Estimated GFR 63 L POC Glucose 324 H Random Glucose 245 H Calcium 7.9 L Phosphorus 2.2 L Magnesium 1.7 B-Natriuretic Peptide MTS Gel Crossmatch See Detail 08/05/18 08/05/18 08/05/18 09:42 09:42 13:01 WBC 7.3 RBC 2.76 L Hgb 8.1 L Hct 23.1 L MCV 83.6 MCH 29.5 MCHC 35.3 RDW 17.5 H Plt Count 16 L* MPV 9.6 WBC Differential Seg Neuts % (Manual) Band Neuts % (Manual) Lymphocytes % (Manual) Monocytes % (Manual) Abs Neuts (Manual) Nucleated RBCs/100 WBC Platelet Estimate Platelet Morphology Ovalocytes Rouleaux Sodium Potassium Chloride Carbon Dioxide Anion Gap BUN Creatinine Estimated GFR POC Glucose 368 H Random Glucose Calcium Phosphorus Magnesium B-Natriuretic Peptide 758 H MTS Gel Crossmatch 08/05/18 08/05/18 08/05/18 17:20 20:38 21:10 WBC RBC Hgb Hct MCV MCH MCHC RDW Plt Count MPV WBC Differential Seg Neuts % (Manual) Band Neuts % (Manual) Lymphocytes % (Manual) Monocytes % (Manual) Abs Neuts (Manual) Nucleated RBCs/100 WBC Platelet Estimate Platelet Morphology Ovalocytes Rouleaux Sodium Potassium 3.9 Chloride Carbon Dioxide Anion Gap BUN Creatinine Estimated GFR POC Glucose 353 H 349 H Random Glucose Calcium Phosphorus Magnesium B-Natriuretic Peptide MTS Gel Crossmatch - Imaging Impressions Chest X-Ray 08/05/18 08:08 CONCLUSION: Radiographic findings consistent with congestive heart failure and pulmonary edema. These findings are new as compared to the CT of August 02, 2018 <Mounika Ambrocio - Last Filed: 08/05/18 22:50> - Labs CBC & Chem 7: 08/06/18 09:29 08/06/18 04:10 Laboratory Results - last 24 hr 08/02/18 08/04/18 08/04/18 04:15 12:00 12:03 WBC RBC Hgb Hct MCV MCH MCHC RDW Plt Count MPV Prelim Diff (Auto) Neut % (Auto) Lymph % (Auto) [place] % (Auto) Eos % (Auto) Baso % (Auto) Neut # (Auto) Lymph # (Auto) [place] # (Auto) Eos # (Auto) Baso # (Auto) WBC Differential Seg Neuts % (Manual) Band Neuts % (Manual) Lymphocytes % (Manual) Monocytes % (Manual) Abs Neuts (Manual) Nucleated RBCs/100 WBC Differential Comment Platelet Estimate Platelet Morphology Ovalocytes Rouleaux Haptoglobin Sodium Potassium Chloride Carbon Dioxide Anion Gap BUN Creatinine Estimated GFR POC Glucose Random Glucose Calcium Phosphorus Magnesium Lactate Dehydrogenase B-Natriuretic Peptide Rho(D) Type Positive MTS Gel Crossmatch See Detail Bld Prod Order Comment 08/04/18 08/04/18 08/04/18 16:09 16:09 16:43 WBC 15.4 H RBC 2.59 L Hgb 7.3 L Hct 22.6 L MCV 87.0 MCH 28.2 MCHC 32.4 RDW 20.0 H Plt Count 4 L* D MPV 11.5 H Prelim Diff (Auto) Neut % (Auto) Lymph % (Auto) [place] % (Auto) Eos % (Auto) Baso % (Auto) Neut # (Auto) Lymph # (Auto) [place] # (Auto) Eos # (Auto) Baso # (Auto) WBC Differential Seg Neuts % (Manual) Band Neuts % (Manual) Lymphocytes % (Manual) Monocytes % (Manual) Abs Neuts (Manual) Nucleated RBCs/100 WBC Differential Comment Platelet Estimate Platelet Morphology Ovalocytes Rouleaux Haptoglobin 131 Sodium Potassium Chloride Carbon Dioxide Anion Gap BUN Creatinine Estimated GFR POC Glucose 404 H Random Glucose Calcium Phosphorus Magnesium Lactate Dehydrogenase 249 H B-Natriuretic Peptide Rho(D) Type MTS Gel Crossmatch Bld Prod Order Comment 08/04/18 08/04/18 08/04/18 17:27 22:08 22:52 WBC 8.4 RBC 2.25 L Hgb 6.4 L* Hct 19.1 L* MCV 84.8 MCH 28.4 MCHC 33.5 RDW 18.4 H Plt Count 16 L* D MPV 7.7 Prelim Diff (Auto) Slide review pending Neut % (Auto) 88.4 H Lymph % (Auto) 5.4 L [place] % (Auto) 6.2 Eos % (Auto) 0.0 Baso % (Auto) 0.0 Neut # (Auto) 7.4 Lymph # (Auto) 0.5 L [place] # (Auto) 0.5 Eos # (Auto) 0.0 Baso # (Auto) 0.0 WBC Differential Manual diff final Seg Neuts % (Manual) 93 H Band Neuts % (Manual) 2 Lymphocytes % (Manual) 3 L Monocytes % (Manual) 2 Abs Neuts (Manual) 8.0 H Nucleated RBCs/100 WBC 2 H Differential Comment . Platelet Estimate Low L Platelet Morphology Enlarged H Ovalocytes 1+ H Rouleaux Present H Haptoglobin Sodium Potassium Chloride Carbon Dioxide Anion Gap BUN Creatinine Estimated GFR POC Glucose Random Glucose Calcium Phosphorus Magnesium Lactate Dehydrogenase B-Natriuretic Peptide Rho(D) Type MTS Gel Crossmatch See Detail See Detail Bld Prod Order Comment 08/04/18 08/05/18 08/05/18 23:33 05:01 09:42 WBC 7.3 RBC 2.76 L Hgb 8.1 L Hct 23.1 L MCV 83.6 MCH 29.5 MCHC 35.3 RDW 17.5 H Plt Count 16 L* MPV 9.6 Prelim Diff (Auto) Neut % (Auto) Lymph % (Auto) [place] % (Auto) Eos % (Auto) Baso % (Auto) Neut # (Auto) Lymph # (Auto) [place] # (Auto) Eos # (Auto) Baso # (Auto) WBC Differential Seg Neuts % (Manual) Band Neuts % (Manual) Lymphocytes % (Manual) Monocytes % (Manual) Abs Neuts (Manual) Nucleated RBCs/100 WBC Differential Comment Platelet Estimate Platelet Morphology Ovalocytes Rouleaux Haptoglobin Sodium 137 Potassium 3.2 L Chloride 103 Carbon Dioxide 24.3 Anion Gap 10 BUN 26 H Creatinine 1.12 Estimated GFR 63 L POC Glucose 324 H Random Glucose 245 H Calcium 7.9 L Phosphorus 2.2 L Magnesium 1.7 Lactate Dehydrogenase B-Natriuretic Peptide Rho(D) Type MTS Gel Crossmatch Bld Prod Order Comment 08/05/18 09:42 WBC RBC Hgb Hct MCV MCH MCHC RDW Plt Count MPV Prelim Diff (Auto) Neut % (Auto) Lymph % (Auto) [place] % (Auto) Eos % (Auto) Baso % (Auto) Neut # (Auto) Lymph # (Auto) [place] # (Auto) Eos # (Auto) Baso # (Auto) WBC Differential Seg Neuts % (Manual) Band Neuts % (Manual) Lymphocytes % (Manual) Monocytes % (Manual) Abs Neuts (Manual) Nucleated RBCs/100 WBC Differential Comment Platelet Estimate Platelet Morphology Ovalocytes Rouleaux Haptoglobin Sodium Potassium Chloride Carbon Dioxide Anion Gap BUN Creatinine Estimated GFR POC Glucose Random Glucose Calcium Phosphorus Magnesium Lactate Dehydrogenase B-Natriuretic Peptide 758 H Rho(D) Type MTS Gel Crossmatch Bld Prod Order Comment - Imaging Impressions Chest X-Ray 08/05/18 08:08 CONCLUSION: Radiographic findings consistent with congestive heart failure and pulmonary edema. These findings are new as compared to the CT of August 02, 2018 <Rene Burton - Last Filed: 08/06/18 11:27> Assessment and Plan - Attending Attestation seen, examined agree with above <Mounika Ambrocio - Last Filed: 08/05/18 22:50> - Plan Bright red blood per rectum No more bleeding since yesterday afternoon. hgb today 8.1. Received 5 units of blood Has never had an EGD or colonoscopy. Denies taking any blood thinners. 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 Prostate cancer status post 45 treatments of radiation completed in July 2017 and patient reports once a month injections that he finished in April of this year. Thrombocytopeniaplatelet count currently 16. Patient does have history of thrombocytopenia but has never been this low according to previous chart review. States that he has not seen a director of distance learning or oncologist in the past. Oncology on the case, plt today is 16 s/p 4 units of plt IV steroids, status post immunoglobulin on 08/04/2018. ? Ritxuan/Cytoxan Plan: - Diet per attending - Severe thrombocytopenia, no invasive procedures planned at this time - Hematology following - Solumedrol - monitor hh - Transfuse as needed - Cont. PPI - Colonoscopy when platelet count improves Further recommendations to follow This patient's been seen and examined by myself and this note was written on her behalf. <Rene Burton - Last Filed: 08/06/18 11:27>
--- NOTE | 2018-08-05 17:26 | MB ---
cc: Khalif Nation DO DATE: 08/05/2018 REASON FOR CONSULTATION: Cardiomyopathy. HISTORY OF PRESENT ILLNESS: Turner Mendoza is a pleasant 83-year-old male who presented to [facility] Emergency Room on 08/02/2018 due to generalized weakness and gross blood on rectal exam. Apparently, he was hypotensive prior to arrival with a blood pressure of 80/50 which was resuscitated with fluids. He was found to have a platelet count of 7000 and a hemoglobin of 7. During his workup, an echocardiogram was done, which showed an ejection fraction of 30% to 35%. In discussing this with the patient, he states that he had no known cardiomyopathy from before. He denies any chest pain or shortness of breath. He does have a history of prostate cancer and has been on hormonal therapy receiving his last course at the end of May. Of note, the patient also had a wide complex tachycardia of 10-12 beats for which he was asymptomatic. PAST MEDICAL HISTORY: 1. Diabetes mellitus. 2. Psoriasis. 3. Prostate cancer, recently on chemotherapy. PAST SURGICAL HISTORY: Denies. ALLERGIES: NO KNOWN DRUG ALLERGIES. MEDICATIONS: 1. Metformin 1000 mg b.i.d. 2. Protonix 40 mg daily. 3. Flomax 0.4 mg daily. 4. Actos 45 mg daily. 5. Atenolol 25 mg daily. 6. Chlor-Trimeton 4 mg every 4 hours. 7. Januvia 100 mg daily. FAMILY HISTORY: Denies premature coronary artery disease or sudden cardiac within the family. SOCIAL HISTORY: Denies tobacco, alcohol or drug abuse. REVIEW OF SYSTEMS: Fourteen systems were reviewed including osteopathic. Pertinent positives and negatives above, otherwise negative. PHYSICAL EXAMINATION: VITAL SIGNS: Temperature 97.8, heart rate 88, blood pressure 132/62, respirations 22, pulse oximetry 100% on 2 liters. GENERAL: The patient appears well, in no acute distress, alert, awake and oriented x3. HEENT: Extraocular muscles intact. Mucous membranes moist. NECK: Supple. No JVD at 45 degrees. No carotid bruits heard bilaterally. Carotid upstroke is brisk in nature. HEART: Regular rate and rhythm. Positive first and second heart sounds without any murmurs, gallops or rubs. LUNGS: Clear to auscultation bilaterally. No wheezes, rales or rhonchi. ABDOMEN: Soft, nontender, nondistended, no organomegaly noted. EXTREMITIES: Show no clubbing, cyanosis or edema. Femoral and distal pulses intact bilaterally. NEUROLOGIC: No focal deficits. SKIN: Warm, dry and intact. OSTEOPATHIC: No kyphoscoliosis, lordosis or paraspinal tender points. LABORATORY DATA: Hemoglobin 8.1, hematocrit 23.1, platelets 16,000. Potassium 3.2, BUN 26, creatinine 1.12, magnesium 1.7, phosphorus 2.2. Electrocardiogram (08/02/2018 at 0823): Sinus rhythm, first degree AV block, left bundle branch block, no significant change from 11/2014. IMPRESSION: 1. New-onset cardiomyopathy of unknown cause. 2. Wide complex tachycardia, asymptomatic. 3. Severe thrombocytopenia. 4. Anemia. 5. Questionable gastrointestinal bleed. 6. Diabetes mellitus. 7. History of prostate cancer, status post radiation and chemo. 8. Proctitis per CT scan. RECOMMENDATIONS AND PLAN: 1. Mr. Butterfield has cardiomyopathy of unknown cause. Unfortunately, due to his current anemia and severe thrombocytopenia, we could not rule out an ischemic cause. 2. We will continue to treat him medically and change his atenolol to carvedilol and add lisinopril. 3. He did have a wide complex tachycardia for which he was asymptomatic. Looking back at previous EKG, it appears that he had an episode in November 2014 where it was felt that he was in atrial flutter with 2:1 block, which would correlate similar to his current wide complex tachycardia. Unfortunately, he is not a candidate for anticoagulation due to his severe thrombocytopenia, rectal bleeding and anemia. 4. Would keep his electrolytes restored to normal level. 5. Unable to place him on aspirin due to his severe thrombocytopenia. 6. I spoke with hematology about what medications he was on for his prostate cancer and none seem to be cardiotoxic in nature. 7. Further recommendations will be made based on the hospital course. Thank you for allowing me to see Turner Butterfield. If there are any questions, please do not hesitate to call. Khalif Nation, VGP/ct , 04:34 PM , 04:45 PM
[2018-08-06] MEDS: Insulin NovoLOG Aspart Correctional Sugar Inj SQ SCH ×5 (00:43→23:38)
[2018-08-06] MEDS: SODIUM CHLOR 0.9% IV.SIG SCH ×2 (03:01→10:36)
[2018-08-06] MEDS: METHYLPREDNISOLONE SOD SUC IV.SIG SCH ×2 (03:01→10:36)
[2018-08-06] MEDS: Chlorhexidine Gluconate 2% 1 Pack (2 Cloths) TOPICAL SCH (05:21)
[2018-08-06] MEDS: Pantoprazole Inj 40 MG Vial IV.PUSH SCH ×2 (05:21→16:31)
[2018-08-06 06:02] LABS: Baso % (Auto) 0.1 % (0.0-2.0); Lymph # (Auto) 0.5 th/mm3 (1.0-4.8); Lymph % (Auto) 7.7 % (9.0-44.0); Mean Corpuscular HGB Conc 34.8 % (32.0-36.0); Mean Corpuscular Hemoglobin 29.1 pg (27.0-34.0); Mean Corpuscular Volume 83.7 fL (80.0-100.0); Mean Platelet Volume 10.5 fL (7.0-11.0); Mono # (Auto) 0.4 th/mm3 (0.0-0.9); Neut % (Auto) 86.2 % (16.0-70.0); Platelet Count 23 th/mm3 (150-450); Red Cell Distribution Width 17.8 % (11.6-17.2); White Blood Count 5.8 th/mm3 (4.0-11.0)
[2018-08-06 06:21] LABS: Albumin 2.4 g/dL (3.4-5.0); Anion Gap 9 meq/L (5-15); Aspartate Aminotransferase 43 U/L (15-37); Blood Urea Nitrogen 32 mg/dL (7-18); Calcium 7.8 mg/dL (8.5-10.1); Carbon Dioxide 26.3 meq/L (21.0-32.0); Chloride 105 meq/L (98-107); Glomerular Filtration Rate 60 mL/min (>89); Glucose,Random 262 mg/dL (74-106); Magnesium 1.8 mg/dL (1.5-2.5); Potassium 3.5 meq/L (3.5-5.1); Sodium 140 meq/L (136-145)
[2018-08-06 06:24] LABS: Alanine Aminotransferase 30 U/L (12-78); Alkaline Phosphatase 46 U/L (45-117); Phosphorus 2.1 mg/dL (2.5-4.9); Total Protein 6.4 g/dL (6.4-8.2)
[2018-08-06 06:41] LABS: Hematocrit 20.1 % (39.0-51.0)
[2018-08-06 07:40] LABS: ABG Base Excess 2.5 mmol/L (-2-2); ABG PCO2 32 mmHg (38-42); ABG PO2 65 mmHG (61-120)
--- NOTE | 2018-08-06 08:36 | P.PNCC ---
Subjective Subjective Remarks/Hospital Course: 83-year-old very pleasant gentleman with history of prostate cancer on hormonal therapy with the last course received in end of May, presents with generalized weakness and gross blood on rectal exam with very loose watery blood. Patient initially was hypotensive prior to arrival with the blood pressure 80/50, after liter of fluid prior to arrival by EVAC the patient's blood pressure now 120/59. Laboratory abnormalities notable for a platelet count of 7000, hemoglobin of 7.1. These are critical levels and a 6 pack of platelets as well as 2 PRBCs now and 2 in reserve been ordered by ED attending, as well as Protonix drip, and octreotide. The patient does have a history of prostate cancer, he has been on Firmagon from his urology/oncologist. 08/03 Patient is lying in bed in NAD. s/p 2u PLT and 2u PRBC yesterday PLT 5 this morning. 08/04 No events overnight. s/p transfusion 1u PLT and 1 u PRBC yesterday PLT count 14 last night from 5. 08/05 Patient s/p transfusion 2u PRBC and 1u PLT since yesterday. Afebrile. PLT count 16 last night. 08/06 Patient seems confused and agitated this morning however he is awake and oriented to time and place. Afebrile. Objective Vital Signs / I&O: Vital Signs 08/05/18 09:00 08/05/18 09:58 08/05/18 10:00 Temperature Pulse Rate 92 H 83 88 Respiratory Rate 25 H 20 25 H Blood Pressure 135/64 138/57 L Pulse Oximetry 90 L 100 92 L 08/05/18 10:07 08/05/18 11:00 08/05/18 11:01 Temperature Pulse Rate 84 81 80 Respiratory Rate 18 27 H 30 H Blood Pressure 142/64 H 106/62 106/62 Pulse Oximetry 100 99 99 08/05/18 12:00 08/05/18 13:00 08/05/18 14:00 Temperature 97.8 F Pulse Rate 78 81 84 Respiratory Rate 29 H 23 21 Blood Pressure 117/61 132/62 130/60 Pulse Oximetry 100 94 L 96 08/05/18 14:15 08/05/18 15:00 08/05/18 16:00 Temperature 98.0 F Pulse Rate 86 86 79 Respiratory Rate 23 29 H Blood Pressure 120/56 L 129/58 L Pulse Oximetry 99 97 08/05/18 17:00 08/05/18 18:00 08/05/18 19:00 Temperature Pulse Rate 79 78 86 Respiratory Rate 24 18 29 H Blood Pressure 123/57 L 123/57 L 121/72 Pulse Oximetry 98 97 97 08/05/18 20:00 08/05/18 20:40 08/05/18 21:00 Temperature 98 F Pulse Rate 78 75 Respiratory Rate 34 H 19 Blood Pressure 132/63 127/58 L Pulse Oximetry 94 L 96 95 08/05/18 22:00 08/05/18 23:00 08/06/18 00:00 Temperature 98.3 F Pulse Rate 72 75 77 Respiratory Rate 18 17 20 Blood Pressure 131/60 133/63 139/70 Pulse Oximetry 96 96 94 L 08/06/18 01:00 08/06/18 01:01 08/06/18 02:00 Temperature Pulse Rate 69 68 80 Respiratory Rate 22 18 27 H Blood Pressure 123/58 L Pulse Oximetry 95 95 98 08/06/18 02:01 08/06/18 02:36 08/06/18 03:00 Temperature Pulse Rate 72 75 65 Respiratory Rate 21 23 16 Blood Pressure 96/46 L 106/51 L Pulse Oximetry 96 97 95 08/06/18 04:00 08/06/18 04:01 08/06/18 05:00 Temperature 98 F Pulse Rate 59 L 59 L 68 Respiratory Rate 16 17 16 Blood Pressure 105/51 L 108/54 L Pulse Oximetry 91 L 90 L 96 08/06/18 06:00 08/06/18 06:01 Temperature Pulse Rate 64 64 Respiratory Rate 16 18 Blood Pressure 156/67 H Pulse Oximetry 98 97 Intake & Output 08/05/18 08/06/18 08/06/18 18:59 06:59 18:59 Intake Total 1820 / 1820 220 / 220 Output Total 1800 / 1800 900 / 900 Balance -680 / -680 Weight 86.5 kg Intake: IV 600 / 600 100 / 100 SoluMEDROL Inj 250 MG In NS Inj 200 / 200 100 / 100 96 ML @ 200 mls/hr IV.SIG Q8H MERON Rx#:[id number] KCl 20 mEq Premix Inj 20 meq In 400 / 400 100 ml @ 50 mls/hr IV.SIG Q2H PRN Rx#:[id number] Oral 1220 / 1220 70 / 70 Other 50 / 50 Output: Urine 1800 / 1800 880 / 880 Stool 20 / 20 Other: Other Intake Source Saline Solution # Voids 3 Date of Last Bowel Movement 08/05/18 08/05/18 # Bowel Movements 1 # Incontinent Bowel Movements 1 Result Diagrams: 08/06/18 09:29 08/06/18 04:10 Other Results: Laboratory Results - last 12 hr 08/04/18 08/05/18 08/05/18 22:52 20:38 21:10 WBC RBC Hgb Hct MCV MCH MCHC RDW Plt Count MPV Prelim Diff (Auto) Neut % (Auto) Lymph % (Auto) [place] % (Auto) Eos % (Auto) Baso % (Auto) Neut # (Auto) Lymph # (Auto) [place] # (Auto) Eos # (Auto) Baso # (Auto) Differential Comment Puncture Site Patient Temperature O2 Saturation ABG pH ABG pCO2 ABG pO2 ABG HCO3 ABG O2 Content ABG Base Excess ABG Methemoglobin Abhijeet Test Hemoglobin Carboxyhemoglobin O2 Delivery Device Critical Value Sodium Potassium 3.9 Chloride Carbon Dioxide Anion Gap BUN Creatinine Estimated GFR POC Glucose 349 H Random Glucose Calcium Phosphorus Magnesium Total Bilirubin AST ALT Alkaline Phosphatase Total Protein Albumin MTS Gel Crossmatch See Detail 08/06/18 08/06/18 08/06/18 00:29 04:10 04:10 WBC 5.8 RBC 2.40 L Hgb 7.0 L Hct 20.1 L* MCV 83.7 MCH 29.1 MCHC 34.8 RDW 17.8 H Plt Count 23 L D MPV 10.5 Prelim Diff (Auto) Slide review pending Neut % (Auto) 86.2 H Lymph % (Auto) 7.7 L [place] % (Auto) 6.0 Eos % (Auto) 0.0 Baso % (Auto) 0.1 Neut # (Auto) 5.0 Lymph # (Auto) 0.5 L [place] # (Auto) 0.4 Eos # (Auto) 0.0 Baso # (Auto) 0.0 Differential Comment . Puncture Site Patient Temperature O2 Saturation ABG pH ABG pCO2 ABG pO2 ABG HCO3 ABG O2 Content ABG Base Excess ABG Methemoglobin Abhijeet Test Hemoglobin Carboxyhemoglobin O2 Delivery Device Critical Value Sodium 140 Potassium 3.5 Chloride 105 Carbon Dioxide 26.3 Anion Gap 9 BUN 32 H Creatinine 1.17 Estimated GFR 60 L POC Glucose 351 H Random Glucose 262 H Calcium 7.8 L Phosphorus 2.1 L Magnesium 1.8 Total Bilirubin 0.8 AST 43 H ALT 30 Alkaline Phosphatase 46 Total Protein 6.4 D Albumin 2.4 L MTS Gel Crossmatch 08/06/18 07:22 WBC RBC Hgb Hct MCV MCH MCHC RDW Plt Count MPV Prelim Diff (Auto) Neut % (Auto) Lymph % (Auto) [place] % (Auto) Eos % (Auto) Baso % (Auto) Neut # (Auto) Lymph # (Auto) [place] # (Auto) Eos # (Auto) Baso # (Auto) Differential Comment Puncture Site Right radial Patient Temperature 98.6 O2 Saturation 92 ABG pH 7.52 H* ABG pCO2 32 L ABG pO2 65 ABG HCO3 25 ABG O2 Content 10.8 L ABG Base Excess 2.5 H ABG Methemoglobin 1.4 Abhijeet Test Present Hemoglobin 8.3 L Carboxyhemoglobin 1.7 O2 Delivery Device Ra Critical Value Yes Sodium Potassium Chloride Carbon Dioxide Anion Gap BUN Creatinine Estimated GFR POC Glucose Random Glucose Calcium Phosphorus Magnesium Total Bilirubin AST ALT Alkaline Phosphatase Total Protein Albumin MTS Gel Crossmatch Imaging: Abdomen/Pelvis CT 08/02/18 04:01 CONCLUSION: 1. 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 2. Nonacute findings include severe atherosclerotic disease, cholelithiasis, stable complex cystic lesion of the left kidney measuring 6.5 cm, and cirrhotic liver. Head CT 08/02/18 04:01 CONCLUSION: No acute intracranial abnormality is identified. . Chest X-Ray 08/05/18 08:08 CONCLUSION: Radiographic findings consistent with congestive heart failure and pulmonary edema. These findings are new as compared to the CT of August 02, 2018 Objective Remarks: GENERAL: Patient is 83 yo lying in bed in NAD SKIN: Warm and dry. HEAD: Normocephalic. EYES: No scleral icterus. No injection or drainage. NECK: Supple, trachea midline. No JVD or lymphadenopathy. CARDIOVASCULAR: Regular rate and rhythm without murmurs, gallops, or rubs. RESPIRATORY: Breath sounds equal bilaterally. No accessory muscle use. GASTROINTESTINAL: Abdomen soft, non-tender, nondistended. MUSCULOSKELETAL: No cyanosis, or edema. Neuro: Confused however oriented to time and place. Assessment and Plan - Assessment and Plan Plan: Severe thrombocytopenia Anemia ? GI bleed Hyperglycemia Hx DM Hx Prostate ca s/p radiation tx. Proctitis per CT abd. Plan Neuro: Awake, alert. Monitor neuro status and avoid sedatives. CT brain: No acute findings Pulm: Continue with Oxygen keep sats >92% Bronchodilators. CV: Monitor HR and BP keep MAP>65mmHg Echo showed severe LV dysfunction with EF 30-35% Continue Lisinopril 2.5mg daily and Coreg 3.125mg BID. Not a candidate for ASA due to severe thrombocytopenia Cards is following-Dr. Nation : Monitor renal function, I/O's, electrolytes replacement per protocol. Diurese with Lasix 40mg x1 GI: On PO cardiac diet. Protonix 40mg BID GI is following. On Hydrocortisone supp BID ID: Monitor for signs of infections ( fever, WBC) Check UA Heme: Monitor CBC, coags, s/p transfusion 2u PRBC and 2 u PLT 10/10 PLT 5 this morning. s/p transfusion 1 unit PLT and 1 u PRBC 08/03 s/p transfusion 2u PRBC, 1u PLT 12 Hematology is following- on solumederol 250mg IV Q8, s/p IgG for ITP. Endo: Medium SSI for glycemic control, increase Levemir 14u BID DVT GI prophylaxis -Teds SCDs -No pharmacological DVT prophylaxis due to severe thrombocytopenia and GI bleed -Protonix IV twice daily Level 3
[2018-08-06 09:00] LABS: Lymphocytes 6 % (9-44); Monocytes 7 % (0-8); Tallied Nucleated RBC 2 (0-0)
[2018-08-06 09:01] LABS: Platelet Morphology Normal (Normal)
[2018-08-06] MEDS: Hydrocortisone Acetate 25 MG Supp RECTAL SCH ×2 (09:36→20:29)
[2018-08-06] MEDS: Insulin Detemir Inj 1,000 UNIT/10 ML Vial SQ SCH ×2 (09:37→20:29)
[2018-08-06] MEDS: Lisinopril 5 MG Tablet PO SCH (09:38)
[2018-08-06] MEDS: Senna/Docusate Sodium 8.6/50 MG Tablet PO SCH ×2 (09:38→20:30)
[2018-08-06] MEDS: Potassium Phosphate 500 MG Soluble Tablet PO PRN ×2 (10:02→15:48)
--- NOTE | 2018-08-06 10:20 | P.PNONC ---
Subjective Interval history: Afebrile. Patient sitting up in bed, no acute distress. His is at the bedside as well as his RN. Patient seems confused today and agitated. His hemoglobin dropped to 7.0, the scrap separator has already ordered a unit of PRBCs. Patient unaware if he is still having GI bleed. Discussed with nurse, no report of bleeding overnight. Objective Vital Signs/Intake & Output: Vital Signs 08/05/18 11:00 08/05/18 11:01 08/05/18 12:00 Temperature 97.8 F Pulse Rate 81 80 78 Respiratory Rate 27 H 30 H 29 H Blood Pressure 106/62 106/62 117/61 Pulse Oximetry 99 99 100 08/05/18 13:00 08/05/18 14:00 08/05/18 14:15 Temperature Pulse Rate 81 84 86 Respiratory Rate 23 21 Blood Pressure 132/62 130/60 Pulse Oximetry 94 L 96 08/05/18 15:00 08/05/18 16:00 08/05/18 17:00 Temperature 98.0 F Pulse Rate 86 79 79 Respiratory Rate 23 29 H 24 Blood Pressure 120/56 L 129/58 L 123/57 L Pulse Oximetry 99 97 98 08/05/18 18:00 08/05/18 19:00 08/05/18 20:00 Temperature 98 F Pulse Rate 78 86 78 Respiratory Rate 18 29 H 34 H Blood Pressure 123/57 L 121/72 132/63 Pulse Oximetry 97 97 94 L 08/05/18 20:40 08/05/18 21:00 08/05/18 22:00 Temperature Pulse Rate 75 72 Respiratory Rate 19 18 Blood Pressure 127/58 L 131/60 Pulse Oximetry 96 95 96 08/05/18 23:00 08/06/18 00:00 08/06/18 01:00 Temperature 98.3 F Pulse Rate 75 77 69 Respiratory Rate 17 20 22 Blood Pressure 133/63 139/70 Pulse Oximetry 96 94 L 95 08/06/18 01:01 08/06/18 02:00 08/06/18 02:01 Temperature Pulse Rate 68 80 72 Respiratory Rate 18 27 H 21 Blood Pressure 123/58 L 96/46 L Pulse Oximetry 95 98 96 08/06/18 02:36 08/06/18 03:00 08/06/18 04:00 Temperature 98 F Pulse Rate 75 65 59 L Respiratory Rate 23 16 16 Blood Pressure 106/51 L Pulse Oximetry 97 95 91 L 08/06/18 04:01 08/06/18 05:00 08/06/18 06:00 Temperature Pulse Rate 59 L 68 64 Respiratory Rate 17 16 16 Blood Pressure 105/51 L 108/54 L Pulse Oximetry 90 L 96 98 08/06/18 06:01 Temperature Pulse Rate 64 Respiratory Rate 18 Blood Pressure 156/67 H Pulse Oximetry 97 Intake & Output 08/05/18 08/06/18 08/06/18 18:59 06:59 18:59 Intake Total 1820 / 1820 220 / 220 Output Total 1800 / 1800 900 / 900 Balance 20 / 20 -680 / -680 Weight 86.5 kg Intake: IV 600 / 600 100 / 100 SoluMEDROL Inj 250 MG In NS Inj 200 / 200 100 / 100 96 ML @ 200 mls/hr IV.SIG Q8H KATHERINE Rx#:[id number] KCl 20 mEq Premix Inj 20 meq In 400 / 400 100 ml @ 50 mls/hr IV.SIG Q2H PRN Rx#:[id number] Oral 1220 / 1220 70 / 70 Other 50 / 50 Output: Urine 1800 / 1800 880 / 880 Stool 20 / 20 Other: Other Intake Source Saline Solution # Voids 3 Date of Last Bowel Movement 08/05/18 08/05/18 # Bowel Movements 1 # Incontinent Bowel Movements 1 Result Diagrams: 08/06/18 09:29 08/06/18 04:10 Laboratory Results: Laboratory Results - last 24 hr 08/04/18 08/05/18 08/05/18 22:52 09:42 09:42 WBC 7.3 RBC 2.76 L Hgb 8.1 L Hct 23.1 L MCV 83.6 MCH 29.5 MCHC 35.3 RDW 17.5 H Plt Count 16 L* MPV 9.6 Prelim Diff (Auto) Neut % (Auto) Lymph % (Auto) [place] % (Auto) Eos % (Auto) Baso % (Auto) Neut # (Auto) Lymph # (Auto) [place] # (Auto) Eos # (Auto) Baso # (Auto) WBC Differential Seg Neuts % (Manual) Lymphocytes % (Manual) Monocytes % (Manual) Abs Neuts (Manual) Nucleated RBCs/100 WBC Differential Comment Platelet Estimate Platelet Morphology Puncture Site Patient Temperature O2 Saturation ABG pH ABG pCO2 ABG pO2 ABG HCO3 ABG O2 Content ABG Base Excess ABG Methemoglobin Abhijeet Test Hemoglobin Carboxyhemoglobin O2 Delivery Device Critical Value Sodium Potassium Chloride Carbon Dioxide Anion Gap BUN Creatinine Estimated GFR POC Glucose Random Glucose Calcium Phosphorus Magnesium Total Bilirubin AST ALT Alkaline Phosphatase B-Natriuretic Peptide 758 H Total Protein Albumin MTS Gel Crossmatch See Detail 08/05/18 08/05/18 08/05/18 13:01 17:20 20:38 WBC RBC Hgb Hct MCV MCH MCHC RDW Plt Count MPV Prelim Diff (Auto) Neut % (Auto) Lymph % (Auto) [place] % (Auto) Eos % (Auto) Baso % (Auto) Neut # (Auto) Lymph # (Auto) [place] # (Auto) Eos # (Auto) Baso # (Auto) WBC Differential Seg Neuts % (Manual) Lymphocytes % (Manual) Monocytes % (Manual) Abs Neuts (Manual) Nucleated RBCs/100 WBC Differential Comment Platelet Estimate Platelet Morphology Puncture Site Patient Temperature O2 Saturation ABG pH ABG pCO2 ABG pO2 ABG HCO3 ABG O2 Content ABG Base Excess ABG Methemoglobin Abhijeet Test Hemoglobin Carboxyhemoglobin O2 Delivery Device Critical Value Sodium Potassium Chloride Carbon Dioxide Anion Gap BUN Creatinine Estimated GFR POC Glucose 368 H 353 H 349 H Random Glucose Calcium Phosphorus Magnesium Total Bilirubin AST ALT Alkaline Phosphatase B-Natriuretic Peptide Total Protein Albumin MTS Gel Crossmatch 08/05/18 08/06/18 08/06/18 21:10 00:29 04:10 WBC 5.8 RBC 2.40 L Hgb 7.0 L Hct 20.1 L* MCV 83.7 MCH 29.1 MCHC 34.8 RDW 17.8 H Plt Count 23 L D MPV 10.5 Prelim Diff (Auto) Slide review pending Neut % (Auto) 86.2 H Lymph % (Auto) 7.7 L [place] % (Auto) 6.0 Eos % (Auto) 0.0 Baso % (Auto) 0.1 Neut # (Auto) 5.0 Lymph # (Auto) 0.5 L [place] # (Auto) 0.4 Eos # (Auto) 0.0 Baso # (Auto) 0.0 WBC Differential Manual diff final Seg Neuts % (Manual) 87 H Lymphocytes % (Manual) 6 L Monocytes % (Manual) 7 Abs Neuts (Manual) 5.0 Nucleated RBCs/100 WBC 2 H Differential Comment . Platelet Estimate Low L Platelet Morphology Normal Puncture Site Patient Temperature O2 Saturation ABG pH ABG pCO2 ABG pO2 ABG HCO3 ABG O2 Content ABG Base Excess ABG Methemoglobin Abhijeet Test Hemoglobin Carboxyhemoglobin O2 Delivery Device Critical Value Sodium Potassium 3.9 Chloride Carbon Dioxide Anion Gap BUN Creatinine Estimated GFR POC Glucose 351 H Random Glucose Calcium Phosphorus Magnesium Total Bilirubin AST ALT Alkaline Phosphatase B-Natriuretic Peptide Total Protein Albumin MTS Gel Crossmatch 08/06/18 08/06/18 08/06/18 04:10 07:22 09:29 WBC RBC Hgb Hct MCV MCH MCHC RDW Plt Count MPV Prelim Diff (Auto) Neut % (Auto) Lymph % (Auto) [place] % (Auto) Eos % (Auto) Baso % (Auto) Neut # (Auto) Lymph # (Auto) [place] # (Auto) Eos # (Auto) Baso # (Auto) WBC Differential Seg Neuts % (Manual) Lymphocytes % (Manual) Monocytes % (Manual) Abs Neuts (Manual) Nucleated RBCs/100 WBC Differential Comment Platelet Estimate Platelet Morphology Puncture Site Right radial Patient Temperature 98.6 O2 Saturation 92 ABG pH 7.52 H* ABG pCO2 32 L ABG pO2 65 ABG HCO3 25 ABG O2 Content 10.8 L ABG Base Excess 2.5 H ABG Methemoglobin 1.4 Abhijeet Test Present Hemoglobin 8.3 L Carboxyhemoglobin 1.7 O2 Delivery Device Ra Critical Value Yes Sodium 140 Potassium 3.5 Chloride 105 Carbon Dioxide 26.3 Anion Gap 9 BUN 32 H Creatinine 1.17 Estimated GFR 60 L POC Glucose Random Glucose 262 H Calcium 7.8 L Phosphorus 2.1 L Magnesium 1.8 Total Bilirubin 0.8 AST 43 H ALT 30 Alkaline Phosphatase 46 B-Natriuretic Peptide Total Protein 6.4 D Albumin 2.4 L MTS Gel Crossmatch See Detail Medications: Active Medications Generic Name Dose Route Start Last Admin Trade Name Freq PRN Reason Stop Dose Admin Acetaminophen 650 mg 08/02/18 04:18 08/03/18 13:32 Tylenol PO 650 mg Q6H PRN Administration PAIN 1-10 AND/OR FEVER >101F Albuterol 1 ampul 08/05/18 10:00 08/06/18 09:02 Duoneb Neb (Katherine) NEB Not Given Q6HR NEB KATHERINE Carvedilol 3.125 mg 08/05/18 09:00 08/06/18 09:35 Coreg PO 3.125 mg BID KATHERINE Administration Chlorhexidine Gluconate 3 pack 08/03/18 04:00 08/06/18 05:21 Chlorhexidine 2% Cloth TOPICAL 08/08/18 03:59 3 pack DAILY@0400 KATHERINE Administration Diphenhydramine HCl 25 mg 08/03/18 13:11 08/03/18 13:32 Benadryl PO 25 mg Q4H PRN Administration SEE LABEL COMMENTS Hydrocortisone Acetate 100 mg 08/02/18 21:00 08/05/18 22:35 Cortenema RECTAL 100 mg HS KATHERINE Administration Hydrocortisone Acetate 25 mg 08/02/18 21:00 08/06/18 09:36 Hemorrhoidal Hc Supp RECTAL 25 mg BID KATHERINE Administration Methylprednisolone Sodium 100 mls @ 200 mls/hr 08/03/18 10:00 08/06/18 04:10 Succinate 250 mg/ Sodium IV.SIG Infused Chloride Q8H KATHERINE Infusion Potassium Chloride 20 meq in 100 mls @ 50 mls/hr 08/05/18 08:03 08/05/18 17: 14 Kcl 20 Meq Premix Inj IV.SIG Infused Q2H PRN Infusion For Potassium 2.8 - 3.2 mEq/L Insulin Aspart 0 unit 08/02/18 06:00 08/06/18 07:15 Novolog Insulin Correctional Sugar Inj SQ Not Given Q6HR [facility] Protocol Insulin Detemir 14 unit 08/06/18 09:00 08/06/18 09:37 Levemir Inj SQ 14 unit BID KATHERINE Administration Lisinopril 2.5 mg 08/05/18 09:00 08/06/18 09:38 Prinivil PO 2.5 mg DAILY KATHERINE Administration Pantoprazole Sodium 40 mg 08/02/18 05:00 08/06/18 05:21 Protonix Inj IV.PUSH 40 mg Q12H KATHERINE Administration Potassium Phosphate 2,000 mg 08/05/18 08:03 08/06/18 10:02 K-Phos Original PO 2,000 mg Q4H PRN Administration Phosphorus Less Than 2.5 mg/dL Senna/Docusate Sodium 1 tab 08/02/18 09:00 08/06/18 09:38 Lisa-Colace PO 1 tab BID KATHERINE Administration Sodium Chloride 2 ml 08/02/18 09:00 08/06/18 09:37 Ns Flush IV.FLUSH 2 ml BID KATHERINE Administration Sodium Chloride 2 ml 08/02/18 04:18 08/06/18 09:37 Ns Flush IV.FLUSH 2 ml PRN PRN Administration FLUSH AFTER USING IV ACCESS Tamsulosin HCl 0.4 mg 08/02/18 09:00 08/06/18 09:36 Flomax PO 0.4 mg DAILY KATHERINE Administration Objective Remarks: GENERAL: Ill-appearing elderly male patient, in no acute distress. +confused, agitated. SKIN: Pale, warm and dry. Ecchymosis to left inner arm and bilateral hands. HEAD: Normocephalic. EYES: No scleral icterus. No injection or drainage. NECK: Supple, trachea midline. CARDIOVASCULAR: Regular rate and rhythm without murmurs. RESPIRATORY: Breath sounds clear, equal bilaterally. Nonlabored at rest. GASTROINTESTINAL: Abdomen soft, non-tender, nondistended. EXTREMITIES: No cyanosis, or edema. MUSCULOSKELETAL: Decreased muscle tone. NEUROLOGICAL: No obvious focal deficit. Awake, alert, and mild confusion. PSYCHIATRIC: Agitated. Assessment/Plan - Plan Mr. Butterfield is a pleasant 83-year-old male patient who is currently hospitalized for a GI bleed. Hematology was consulted for severe thrombocytopenia. 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 Plan: 1. Acute ITP. Continue IV steroids, status post immunoglobulin on 08/04/2018. Platelets increased to 23,000 today. 2. Anemia, hgb dropped to 7.0. Pt seems confused and agitated this a.m. The scrap separator has ordered 1unit of pRBC to be transfused today. 3. GI bleed, management per GI and scrap separator. 4. Continue to monitor daily. - Attending Statement The exam, history, and the medical decision-making described in the above note were completed with the assistance of the mid-level provider. I reviewed and agree with the findings presented. I attest that I had a [id number] encounter with the patient on the same day, and personally performed and documented my assessment and findings in the medical record. Patient mildly confused this morning. He is easily reoriented. No report of bleeding. Repeat CBC showed hemoglobin 8.5. Platelet count is up to 33,000. He may be developing steroid psychosis. I am going to reduce his Solu-Medrol dose to 250 mg once a day. Continue to taper if his platelet count continued to improve. Dr. Emery will follow tomorrow.
[2018-08-06 10:21] LABS: Hematocrit 25.2 % (39.0-51.0); Hemoglobin 8.5 gm/dL (13.0-17.0); Lymph # (Auto) 0.5 th/mm3 (1.0-4.8); Lymph % (Auto) 6.3 % (9.0-44.0); Mean Corpuscular HGB Conc 33.8 % (32.0-36.0); Mean Corpuscular Volume 85.7 fL (80.0-100.0); Mean Platelet Volume 10.9 fL (7.0-11.0); Mono # (Auto) 0.5 th/mm3 (0.0-0.9); Mono % (Auto) 5.6 % (0.0-8.0); Neut # (Auto) 7.1 th/mm3 (1.8-7.7); Neut % (Auto) 88.1 % (16.0-70.0); Platelet Count 33 th/mm3 (150-450); Red Blood Count 2.94 mil/mm3 (4.50-5.90); Red Cell Distribution Width 18.1 % (11.6-17.2); White Blood Count 8.1 th/mm3 (4.0-11.0)
[2018-08-06 10:56] LABS: Lymphocytes 2 % (9-44); Monocytes 3 % (0-8)
[2018-08-06 10:57] LABS: Platelet Morphology Normal (Normal); Polychromasia 2.2 % (0.0-1.9); Tallied Nucleated RBC 2 (0-0)
[2018-08-06 11:20] LABS: Bilirubin,Urine Negative (Negative); Clarity,Urine Clear (Clear); Color,Urine Yellow (Yellw/Straw); Glucose,Urine (UA) 500 or Greater mg/dL (Negative); Leukocyte Esterase,Urine Negative (Negative); Nitrite,Urine Negative (Negative); Specific Gravity,Urine 1.022 (1.002-1.035)
--- NOTE | 2018-08-06 11:26 | P.PNGI ---
Subjective Interval history: Pt is resting in bed, accompanied by family, pt denies nausea, vomiting or bleeding. Per nurse, pt had a small amount of blood in stools last night <Rene Burton - Last Filed: 08/06/18 11:21> Physical Exam Vital signs: Vital Signs 08/05/18 12:00 08/05/18 13:00 08/05/18 14:00 Temperature 97.8 F Pulse Rate 78 81 84 Respiratory Rate 29 H 23 21 Blood Pressure 117/61 132/62 130/60 Pulse Oximetry 100 94 L 96 08/05/18 14:15 08/05/18 15:00 08/05/18 16:00 Temperature 98.0 F Pulse Rate 86 86 79 Respiratory Rate 23 29 H Blood Pressure 120/56 L 129/58 L Pulse Oximetry 99 97 08/05/18 17:00 08/05/18 18:00 08/05/18 19:00 Temperature Pulse Rate 79 78 86 Respiratory Rate 24 18 29 H Blood Pressure 123/57 L 123/57 L 121/72 Pulse Oximetry 98 97 97 08/05/18 20:00 08/05/18 20:40 08/05/18 21:00 Temperature 98 F Pulse Rate 78 75 Respiratory Rate 34 H 19 Blood Pressure 132/63 127/58 L Pulse Oximetry 94 L 96 95 08/05/18 22:00 08/05/18 23:00 08/06/18 00:00 Temperature 98.3 F Pulse Rate 72 75 77 Respiratory Rate 18 17 20 Blood Pressure 131/60 133/63 139/70 Pulse Oximetry 96 96 94 L 08/06/18 01:00 08/06/18 01:01 08/06/18 02:00 Temperature Pulse Rate 69 68 80 Respiratory Rate 22 18 27 H Blood Pressure 123/58 L Pulse Oximetry 95 95 98 08/06/18 02:01 08/06/18 02:36 08/06/18 03:00 Temperature Pulse Rate 72 75 65 Respiratory Rate 21 23 16 Blood Pressure 96/46 L 106/51 L Pulse Oximetry 96 97 95 08/06/18 04:00 08/06/18 04:01 08/06/18 05:00 Temperature 98 F Pulse Rate 59 L 59 L 68 Respiratory Rate 16 17 16 Blood Pressure 105/51 L 108/54 L Pulse Oximetry 91 L 90 L 96 08/06/18 06:00 08/06/18 06:01 08/06/18 10:31 Temperature Pulse Rate 64 64 Respiratory Rate 16 18 Blood Pressure 156/67 H Pulse Oximetry 98 97 94 L Intake & Output 08/05/18 08/06/18 08/06/18 18:59 06:59 18:59 Intake Total 1820 / 1820 220 / 220 Output Total 1800 / 1800 900 / 900 Balance 20 / 20 -680 / -680 Weight 86.5 kg Intake: IV 600 / 600 100 / 100 SoluMEDROL Inj 250 MG In NS Inj 200 / 200 100 / 100 96 ML @ 200 mls/hr IV.SIG Q8H MERON Rx#:[id number] KCl 20 mEq Premix Inj 20 meq In 400 / 400 100 ml @ 50 mls/hr IV.SIG Q2H PRN Rx#:[id number] Oral 1220 / 1220 70 / 70 Other 50 / 50 Output: Urine 1800 / 1800 880 / 880 Stool 20 / 20 Other: Other Intake Source Saline Solution # Voids 3 Date of Last Bowel Movement 08/05/18 08/05/18 # Bowel Movements 1 # Incontinent Bowel Movements 1 - Constitutional no acute distress - Routine HEENT Exam Head: Present: normocephalic - Routine Neck Exam Present: supple - Routine Respiratory Exam Present: CTA bilaterally - Routine Cardiovascular Exam Present: RRR - Routine Abdominal Exam Present: soft, normoactive bowel sounds. Absent: tenderness, distended - Routine Skin Exam Present: intact, dry, ecchymosis - Routine Neurological Exam Present: alert, oriented X3 <SondraariaRene - Last Filed: 08/06/18 11:21> Vital signs: Vital Signs 08/05/18 14:00 08/05/18 14:15 08/05/18 15:00 Temperature Pulse Rate 84 86 86 Respiratory Rate 21 23 Blood Pressure 130/60 120/56 L Pulse Oximetry 96 99 08/05/18 16:00 08/05/18 17:00 08/05/18 18:00 Temperature 98.0 F Pulse Rate 79 79 78 Respiratory Rate 29 H 24 18 Blood Pressure 129/58 L 123/57 L 123/57 L Pulse Oximetry 97 98 97 08/05/18 19:00 08/05/18 20:00 08/05/18 20:40 Temperature 98 F Pulse Rate 86 78 Respiratory Rate 29 H 34 H Blood Pressure 121/72 132/63 Pulse Oximetry 97 94 L 96 08/05/18 21:00 08/05/18 22:00 08/05/18 23:00 Temperature Pulse Rate 75 72 75 Respiratory Rate 19 18 17 Blood Pressure 127/58 L 131/60 133/63 Pulse Oximetry 95 96 96 08/06/18 00:00 08/06/18 01:00 08/06/18 01:01 Temperature 98.3 F Pulse Rate 77 69 68 Respiratory Rate 20 22 18 Blood Pressure 139/70 123/58 L Pulse Oximetry 94 L 95 95 08/06/18 02:00 08/06/18 02:01 08/06/18 02:36 Temperature Pulse Rate 80 72 75 Respiratory Rate 27 H 21 23 Blood Pressure 96/46 L 106/51 L Pulse Oximetry 98 96 97 08/06/18 03:00 08/06/18 04:00 08/06/18 04:01 Temperature 98 F Pulse Rate 65 59 L 59 L Respiratory Rate 16 16 17 Blood Pressure 105/51 L Pulse Oximetry 95 91 L 90 L 08/06/18 05:00 08/06/18 06:00 08/06/18 06:01 Temperature Pulse Rate 68 64 64 Respiratory Rate 16 16 18 Blood Pressure 108/54 L 156/67 H Pulse Oximetry 96 98 97 08/06/18 07:00 08/06/18 08:00 08/06/18 09:00 Temperature 98.3 F Pulse Rate 100 H 89 95 H Respiratory Rate 35 H 32 H 32 H Blood Pressure 149/65 H 161/70 H Pulse Oximetry 92 L 94 L 96 08/06/18 09:01 08/06/18 09:33 08/06/18 10:00 Temperature Pulse Rate 97 H 98 H 82 Respiratory Rate 30 H 51 H 25 H Blood Pressure 151/65 H 150/70 H 158/72 H Pulse Oximetry 97 97 97 08/06/18 10:31 08/06/18 11:00 08/06/18 11:01 Temperature Pulse Rate 130 H 124 H Respiratory Rate 27 H 28 H Blood Pressure 161/71 H Pulse Oximetry 94 L 95 95 08/06/18 12:00 08/06/18 12:01 08/06/18 13:00 Temperature 97.9 F Pulse Rate 80 82 89 Respiratory Rate 26 H 29 H 29 H Blood Pressure 137/63 Pulse Oximetry 95 94 L 95 08/06/18 13:01 Temperature Pulse Rate 107 H Respiratory Rate 28 H Blood Pressure 144/60 H Pulse Oximetry 95 Intake & Output 08/05/18 08/06/18 08/06/18 18:59 06:59 18:59 Intake Total 1820 / 1820 220 / 220 Output Total 1800 / 1800 900 / 900 Balance 20 / 20 -680 / -680 Weight 86.5 kg Intake: IV 600 / 600 100 / 100 SoluMEDROL Inj 250 MG In NS Inj 200 / 200 100 / 100 96 ML @ 200 mls/hr IV.SIG Q8H MERON Rx#:[id number] KCl 20 mEq Premix Inj 20 meq In 400 / 400 100 ml @ 50 mls/hr IV.SIG Q2H PRN Rx#:[id number] Oral 1220 / 1220 70 / 70 Other 50 / 50 Output: Urine 1800 / 1800 880 / 880 Stool 20 / 20 Other: Other Intake Source Saline Solution # Voids 3 Date of Last Bowel Movement 08/05/18 08/05/18 08/05/18 # Bowel Movements 1 # Incontinent Bowel Movements 1 <Mounika Ambrocio - Last Filed: 08/06/18 13:49> Results - Labs CBC & Chem 7: 08/06/18 09:29 08/06/18 04:10 Laboratory Results - last 24 hr 08/04/18 08/05/18 08/05/18 22:52 13:01 17:20 WBC RBC Hgb Hct MCV MCH MCHC RDW Plt Count MPV Prelim Diff (Auto) Neut % (Auto) Lymph % (Auto) [place] % (Auto) Eos % (Auto) Baso % (Auto) Neut # (Auto) Lymph # (Auto) [place] # (Auto) Eos # (Auto) Baso # (Auto) WBC Differential Seg Neuts % (Manual) Band Neuts % (Manual) Lymphocytes % (Manual) Monocytes % (Manual) Abs Neuts (Manual) Nucleated RBCs/100 WBC Differential Comment Platelet Estimate Platelet Morphology Polychromasia Basophilic Stippling Puncture Site Patient Temperature O2 Saturation ABG pH ABG pCO2 ABG pO2 ABG HCO3 ABG O2 Content ABG Base Excess ABG Methemoglobin Abhijeet Test Hemoglobin Carboxyhemoglobin O2 Delivery Device Critical Value Sodium Potassium Chloride Carbon Dioxide Anion Gap BUN Creatinine Estimated GFR POC Glucose 368 H 353 H Random Glucose Calcium Phosphorus Magnesium Total Bilirubin AST ALT Alkaline Phosphatase Total Protein Albumin Blood Type Antibody Screen MTS Gel Crossmatch See Detail 08/05/18 08/05/18 08/06/18 20:38 21:10 00:29 WBC RBC Hgb Hct MCV MCH MCHC RDW Plt Count MPV Prelim Diff (Auto) Neut % (Auto) Lymph % (Auto) [place] % (Auto) Eos % (Auto) Baso % (Auto) Neut # (Auto) Lymph # (Auto) [place] # (Auto) Eos # (Auto) Baso # (Auto) WBC Differential Seg Neuts % (Manual) Band Neuts % (Manual) Lymphocytes % (Manual) Monocytes % (Manual) Abs Neuts (Manual) Nucleated RBCs/100 WBC Differential Comment Platelet Estimate Platelet Morphology Polychromasia Basophilic Stippling Puncture Site Patient Temperature O2 Saturation ABG pH ABG pCO2 ABG pO2 ABG HCO3 ABG O2 Content ABG Base Excess ABG Methemoglobin Abhijeet Test Hemoglobin Carboxyhemoglobin O2 Delivery Device Critical Value Sodium Potassium 3.9 Chloride Carbon Dioxide Anion Gap BUN Creatinine Estimated GFR POC Glucose 349 H 351 H Random Glucose Calcium Phosphorus Magnesium Total Bilirubin AST ALT Alkaline Phosphatase Total Protein Albumin Blood Type Antibody Screen MTS Gel Crossmatch 08/06/18 08/06/18 08/06/18 04:10 04:10 07:22 WBC 5.8 RBC 2.40 L Hgb 7.0 L Hct 20.1 L* MCV 83.7 MCH 29.1 MCHC 34.8 RDW 17.8 H Plt Count 23 L D MPV 10.5 Prelim Diff (Auto) Slide review pending Neut % (Auto) 86.2 H Lymph % (Auto) 7.7 L Dillon % (Auto) 6.0 Eos % (Auto) 0.0 Baso % (Auto) 0.1 Neut # (Auto) 5.0 Lymph # (Auto) 0.5 L Dillon # (Auto) 0.4 Eos # (Auto) 0.0 Baso # (Auto) 0.0 WBC Differential Manual diff final Seg Neuts % (Manual) 87 H Band Neuts % (Manual) Lymphocytes % (Manual) 6 L Monocytes % (Manual) 7 Abs Neuts (Manual) 5.0 Nucleated RBCs/100 WBC 2 H Differential Comment . Platelet Estimate Low L Platelet Morphology Normal Polychromasia Basophilic Stippling Puncture Site Right radial Patient Temperature 98.6 O2 Saturation 92 ABG pH 7.52 H* ABG pCO2 32 L ABG pO2 65 ABG HCO3 25 ABG O2 Content 10.8 L ABG Base Excess 2.5 H ABG Methemoglobin 1.4 Abhijeet Test Present Hemoglobin 8.3 L Carboxyhemoglobin 1.7 O2 Delivery Device Ra Critical Value Yes Sodium 140 Potassium 3.5 Chloride 105 Carbon Dioxide 26.3 Anion Gap 9 BUN 32 H Creatinine 1.17 Estimated GFR 60 L POC Glucose Random Glucose 262 H Calcium 7.8 L Phosphorus 2.1 L Magnesium 1.8 Total Bilirubin 0.8 AST 43 H ALT 30 Alkaline Phosphatase 46 Total Protein 6.4 D Albumin 2.4 L Blood Type Antibody Screen MTS Gel Crossmatch 08/06/18 08/06/18 09:29 09:29 WBC 8.1 RBC 2.94 L Hgb 8.5 L Hct 25.2 L MCV 85.7 MCH 29.0 MCHC 33.8 RDW 18.1 H Plt Count 33 L D MPV 10.9 Prelim Diff (Auto) Slide review pending Neut % (Auto) 88.1 H Lymph % (Auto) 6.3 L Dillon % (Auto) 5.6 Eos % (Auto) 0.0 Baso % (Auto) 0.0 Neut # (Auto) 7.1 Lymph # (Auto) 0.5 L Dillon # (Auto) 0.5 Eos # (Auto) 0.0 Baso # (Auto) 0.0 WBC Differential Manual diff final Seg Neuts % (Manual) 90 H Band Neuts % (Manual) 3 Lymphocytes % (Manual) 2 L Monocytes % (Manual) 3 Abs Neuts (Manual) 7.5 Nucleated RBCs/100 WBC 2 H Differential Comment . Platelet Estimate Low L Platelet Morphology Normal Polychromasia 2.2 H Basophilic Stippling Faint H Puncture Site Patient Temperature O2 Saturation ABG pH ABG pCO2 ABG pO2 ABG HCO3 ABG O2 Content ABG Base Excess ABG Methemoglobin Abhijeet Test Hemoglobin Carboxyhemoglobin O2 Delivery Device Critical Value Sodium Potassium Chloride Carbon Dioxide Anion Gap BUN Creatinine Estimated GFR POC Glucose Random Glucose Calcium Phosphorus Magnesium Total Bilirubin AST ALT Alkaline Phosphatase Total Protein Albumin Blood Type O Positive Antibody Screen Negative MTS Gel Crossmatch See Detail <Rene Burton - Last Filed: 08/06/18 11:21> - Labs CBC & Chem 7: 08/06/18 09:29 08/06/18 04:10 Laboratory Results - last 24 hr 08/04/18 08/05/18 08/05/18 22:52 17:20 20:38 WBC RBC Hgb Hct MCV MCH MCHC RDW Plt Count MPV Prelim Diff (Auto) Neut % (Auto) Lymph % (Auto) Dillon % (Auto) Eos % (Auto) Baso % (Auto) Neut # (Auto) Lymph # (Auto) Dillon # (Auto) Eos # (Auto) Baso # (Auto) WBC Differential Seg Neuts % (Manual) Band Neuts % (Manual) Lymphocytes % (Manual) Monocytes % (Manual) Abs Neuts (Manual) Nucleated RBCs/100 WBC Differential Comment Platelet Estimate Platelet Morphology Polychromasia Basophilic Stippling Puncture Site Patient Temperature O2 Saturation ABG pH ABG pCO2 ABG pO2 ABG HCO3 ABG O2 Content ABG Base Excess ABG Methemoglobin Abhijeet Test Hemoglobin Carboxyhemoglobin O2 Delivery Device Critical Value Sodium Potassium Chloride Carbon Dioxide Anion Gap BUN Creatinine Estimated GFR POC Glucose 353 H 349 H Random Glucose Calcium Phosphorus Magnesium Total Bilirubin AST ALT Alkaline Phosphatase Total Protein Albumin Urine Color Urine Clarity Urine pH Ur Specific [place] Urine Protein Urine Glucose (UA) Urine Ketones Urine Occult Blood Urine Nitrate Urine Bilirubin Urine Urobilinogen Ur Leukocyte Esterase Urine RBC Urine WBC Micro UA Comment Ur Microscopic Review Urine Culture Comments Blood Type Antibody Screen MTS Gel Crossmatch See Detail 08/05/18 08/06/18 08/06/18 21:10 00:29 04:10 WBC 5.8 RBC 2.40 L Hgb 7.0 L Hct 20.1 L* MCV 83.7 MCH 29.1 MCHC 34.8 RDW 17.8 H Plt Count 23 L D MPV 10.5 Prelim Diff (Auto) Slide review pending Neut % (Auto) 86.2 H Lymph % (Auto) 7.7 L Dillon % (Auto) 6.0 Eos % (Auto) 0.0 Baso % (Auto) 0.1 Neut # (Auto) 5.0 Lymph # (Auto) 0.5 L Dillon # (Auto) 0.4 Eos # (Auto) 0.0 Baso # (Auto) 0.0 WBC Differential Manual diff final Seg Neuts % (Manual) 87 H Band Neuts % (Manual) Lymphocytes % (Manual) 6 L Monocytes % (Manual) 7 Abs Neuts (Manual) 5.0 Nucleated RBCs/100 WBC 2 H Differential Comment . Platelet Estimate Low L Platelet Morphology Normal Polychromasia Basophilic Stippling Puncture Site Patient Temperature O2 Saturation ABG pH ABG pCO2 ABG pO2 ABG HCO3 ABG O2 Content ABG Base Excess ABG Methemoglobin Abhijeet Test Hemoglobin Carboxyhemoglobin O2 Delivery Device Critical Value Sodium Potassium 3.9 Chloride Carbon Dioxide Anion Gap BUN Creatinine Estimated GFR POC Glucose 351 H Random Glucose Calcium Phosphorus Magnesium Total Bilirubin AST ALT Alkaline Phosphatase Total Protein Albumin Urine Color Urine Clarity Urine pH Ur Specific [place] Urine Protein Urine Glucose (UA) Urine Ketones Urine Occult Blood Urine Nitrate Urine Bilirubin Urine Urobilinogen Ur Leukocyte Esterase Urine RBC Urine WBC Micro UA Comment Ur Microscopic Review Urine Culture Comments Blood Type Antibody Screen MTS Gel Crossmatch 08/06/18 08/06/18 08/06/18 04:10 07:22 09:29 WBC RBC Hgb Hct MCV MCH MCHC RDW Plt Count MPV Prelim Diff (Auto) Neut % (Auto) Lymph % (Auto) Dillon % (Auto) Eos % (Auto) Baso % (Auto) Neut # (Auto) Lymph # (Auto) Dillon # (Auto) Eos # (Auto) Baso # (Auto) WBC Differential Seg Neuts % (Manual) Band Neuts % (Manual) Lymphocytes % (Manual) Monocytes % (Manual) Abs Neuts (Manual) Nucleated RBCs/100 WBC Differential Comment Platelet Estimate Platelet Morphology Polychromasia Basophilic Stippling Puncture Site Right radial Patient Temperature 98.6 O2 Saturation 92 ABG pH 7.52 H* ABG pCO2 32 L ABG pO2 65 ABG HCO3 25 ABG O2 Content 10.8 L ABG Base Excess 2.5 H ABG Methemoglobin 1.4 Abhijeet Test Present Hemoglobin 8.3 L Carboxyhemoglobin 1.7 O2 Delivery Device Ra Critical Value Yes Sodium 140 Potassium 3.5 Chloride 105 Carbon Dioxide 26.3 Anion Gap 9 BUN 32 H Creatinine 1.17 Estimated GFR 60 L POC Glucose Random Glucose 262 H Calcium 7.8 L Phosphorus 2.1 L Magnesium 1.8 Total Bilirubin 0.8 AST 43 H ALT 30 Alkaline Phosphatase 46 Total Protein 6.4 D Albumin 2.4 L Urine Color Urine Clarity Urine pH Ur Specific [place] Urine Protein Urine Glucose (UA) Urine Ketones Urine Occult Blood Urine Nitrate Urine Bilirubin Urine Urobilinogen Ur Leukocyte Esterase Urine RBC Urine WBC Micro UA Comment Ur Microscopic Review Urine Culture Comments Blood Type O Positive Antibody Screen Negative MTS Gel Crossmatch See Detail 08/06/18 08/06/18 08/06/18 09:29 10:10 11:53 WBC 8.1 RBC 2.94 L Hgb 8.5 L Hct 25.2 L MCV 85.7 MCH 29.0 MCHC 33.8 RDW 18.1 H Plt Count 33 L D MPV 10.9 Prelim Diff (Auto) Slide review pending Neut % (Auto) 88.1 H Lymph % (Auto) 6.3 L Dillon % (Auto) 5.6 Eos % (Auto) 0.0 Baso % (Auto) 0.0 Neut # (Auto) 7.1 Lymph # (Auto) 0.5 L Dillon # (Auto) 0.5 Eos # (Auto) 0.0 Baso # (Auto) 0.0 WBC Differential Manual diff final Seg Neuts % (Manual) 90 H Band Neuts % (Manual) 3 Lymphocytes % (Manual) 2 L Monocytes % (Manual) 3 Abs Neuts (Manual) 7.5 Nucleated RBCs/100 WBC 2 H Differential Comment . Platelet Estimate Low L Platelet Morphology Normal Polychromasia 2.2 H Basophilic Stippling Faint H Puncture Site Patient Temperature O2 Saturation ABG pH ABG pCO2 ABG pO2 ABG HCO3 ABG O2 Content ABG Base Excess ABG Methemoglobin Abhijeet Test Hemoglobin Carboxyhemoglobin O2 Delivery Device Critical Value Sodium Potassium Chloride Carbon Dioxide Anion Gap BUN Creatinine Estimated GFR POC Glucose 374 H Random Glucose Calcium Phosphorus Magnesium Total Bilirubin AST ALT Alkaline Phosphatase Total Protein Albumin Urine Color Yellow Urine Clarity Clear Urine pH 5.0 Ur Specific [place] 1.022 Urine Protein Negative Urine Glucose (UA) 500 or greater Urine Ketones Negative Urine Occult Blood Negative Urine Nitrate Negative Urine Bilirubin Negative Urine Urobilinogen Less than 2 Ur Leukocyte Esterase Negative Urine RBC Less than 1 Urine WBC 1 Micro UA Comment Culture not ind Ur Microscopic Review Not Reportable Urine Culture Comments Culture not ind Blood Type Antibody Screen MTS Gel Crossmatch <Mounika Ambrocio - Last Filed: 08/06/18 13:49> Assessment and Plan - Plan Bright red blood per rectum small amount of bleeding reported last night. hgb today 8.5. Received 5 units of blood Has never had an EGD or colonoscopy. Denies taking any blood thinners. 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 Prostate cancer status post 45 treatments of radiation completed in July 2017 and patient reports once a month injections that he finished in April of this year. Thrombocytopeniaplatelet count currently 33. Patient does have history of thrombocytopenia but has never been this low according to previous chart review. States that he has not seen a audio operator or oncologist in the past. Oncology on the case, plt today is 16 s/p 4 units of plt IV steroids, status post immunoglobulin on 08/04/2018. ? Ritxuan/Cytoxan Plan: - Diet per attending - Severe thrombocytopenia, no invasive procedures planned at this time - Hematology following - Solumedrol - monitor hh - Transfuse as needed - Cont. PPI - Colonoscopy when platelet count improves Further recommendations to follow This patient's been seen and examined by myself and this note was written on her behalf. <Rene Burton - Last Filed: 08/06/18 11:21> - Attending Attestation agree with above <Mounika Ambrocio - Last Filed: 08/06/18 13:49>
--- NOTE | 2018-08-06 15:18 | P.PNCA ---
Subjective Interval history: No events overnight Hgb 7, platelets increased No chest pain/SOB Medications and Allergies Active Medications: Active Medications Acetaminophen (Tylenol) 650 mg PO Q6H PRN PRN Reason: PAIN 1-10 AND/OR FEVER >101F Last Admin: 08/03/18 13:32 Dose: 650 mg Acetaminophen (Tylenol) 650 mg PO Q4H PRN PRN Reason: SEE LABEL COMMENTS Al Hydroxide/Mg Hydroxide (Milk Of Aj Liq) 30 ml PO Q12H PRN PRN Reason: Mild Constipation Albuterol (Duoneb Neb (Prn)) 1 ampul NEB Q2HR NEB PRN PRN Reason: WHEEZING Albuterol (Duoneb Neb (Katherine)) 1 ampul NEB Q6HR NEB KATHERINE Last Admin: 08/06/18 09:02 Dose: Not Given Bisacodyl (Dulcolax Supp) 10 mg RECTAL DAILY PRN PRN Reason: SEVERE CONSITIPATION Carvedilol (Coreg) 3.125 mg PO BID [facility] Last Admin: 08/06/18 09:35 Dose: 3.125 mg Chlorhexidine Gluconate (Chlorhexidine 2% Cloth) 3 pack TOPICAL DAILY@0400 KATHERINE Stop: 08/08/18 03:59 Last Admin: 08/06/18 05:21 Dose: 3 pack Chlorhexidine Gluconate (Chlorhexidine 2% Cloth) 3 pack TOPICAL DAILY@0400 PRN PRN Reason: Extra cloth needed Stop: 08/08/18 03:59 Dextrose (D50w Vial) 50 ml IV.PUSH UNSCH PRN PRN Reason: PER HYPOGLYCEMIA PROTOCOL Diphenhydramine HCl (Benadryl) 25 mg PO Q4H PRN PRN Reason: SEE LABEL COMMENTS Last Admin: 08/03/18 13:32 Dose: 25 mg Glucagon (Glucagon Inj) 1 mg OTHER PRN PRN PRN Reason: for Hypoglycemia Protocol Hydrocortisone Acetate (Cortenema) 100 mg RECTAL HS [facility] Last Admin: 08/05/18 22:35 Dose: 100 mg Hydrocortisone Acetate (Hemorrhoidal Hc Supp) 25 mg RECTAL BID [facility] Last Admin: 08/06/18 09:36 Dose: 25 mg Magnesium Sulfate 4 gm/ Sodium (Chloride) 100 mls @ 50 mls/hr IV.SIG UNSCH PRN PRN Reason: For Magnesium 0.9 - 1.1 mg/dL Magnesium Sulfate 2 gm/ Sodium (Chloride) 100 mls @ 50 mls/hr IV.SIG UNSCH PRN PRN Reason: For Magnesium 1.2 - 1.6 mg/dL Potassium Chloride (Kcl 40 Meq Premix Inj) 40 meq in 100 mls @ 25 mls/hr IV.SIG Q2H PRN PRN Reason: For Potassium 2.8 - 3.2 mEq/L Potassium Chloride (Kcl 20 Meq Premix Inj) 20 meq in 100 mls @ 50 mls/hr IV.SIG Q2H PRN PRN Reason: For Potassium 3.3 - 3.5 mEq/L Potassium Chloride (Kcl 40 Meq Premix Inj) 40 meq in 100 mls @ 25 mls/hr IV.SIG UNSCH PRN PRN Reason: For Potassium 3.3 - 3.5 mEq/L Potassium Chloride (Kcl 20 Meq Premix Inj) 20 meq in 100 mls @ 50 mls/hr IV.SIG Q2H PRN PRN Reason: For Potassium 2.8 - 3.2 mEq/L Last Infusion: 08/05/18 17:14 Dose: Infused Potassium Phosphate 30 mmol/ (Sodium Chloride) 260 mls @ 42 mls/hr IV.SIG UNSCH PRN PRN Reason: SEE LABEL COMMENTS Sodium Phosphate 30 mmol/ (Sodium Chloride) 260 mls @ 42 mls/hr IV.SIG UNSCH PRN PRN Reason: For Phosphorus < 2.5 mg/dL Methylprednisolone Sodium Succinate 250 mg/ Sodium Chloride 100 mls @ 200 mls/ hr IV.SIG DAILY [facility] Insulin Aspart (Novolog Insulin Correctional Sugar Inj) 0 unit SQ Q6HR [facility]; Protocol Last Admin: 08/06/18 11:59 Dose: 12 unit Insulin Detemir (Levemir Inj) 14 unit SQ BID [facility] Last Admin: 08/06/18 09:37 Dose: 14 unit Lactulose (Lactulose Liq) 30 ml PO DAILY PRN PRN Reason: SEVERE CONSITIPATION Lisinopril (Prinivil) 2.5 mg PO DAILY [facility] Last Admin: 08/06/18 09:38 Dose: 2.5 mg Magnesium Oxide (Mag-Ox) 800 mg PO UNSCH PRN PRN Reason: For Magnesium 1.2 - 1.6 mg/dL Morphine Sulfate (Morphine Inj) 2 mg IV.PUSH Q2H PRN PRN Reason: PAIN SCALE 6 TO 10 Ondansetron HCl (Zofran Inj) 4 mg IV.PUSH Q6H PRN PRN Reason: NAUSEA OR VOMITING Pantoprazole Sodium (Protonix Inj) 40 mg IV.PUSH Q12H [facility] Last Admin: 08/06/18 05:21 Dose: 40 mg Potassium Bicarb/Potassium Chloride (K-Lyte Cl Eff) 50 meq PO UNSCH PRN PRN Reason: For Potassium 3.3 - 3.5 mEq/L Potassium Phosphate (K-Phos Original) 2,000 mg PO Q4H PRN PRN Reason: Phosphorus Less Than 2.5 mg/dL Last Admin: 08/06/18 10:02 Dose: 2,000 mg Potassium Phosphate (K-Phos Original) 2,000 mg PO UNSCH PRN PRN Reason: SEE LABEL COMMENTS Senna/Docusate Sodium (Lisa-Colace) 1 tab PO BID [facility] Last Admin: 08/06/18 09:38 Dose: 1 tab Sennosides (Senokot) 17.2 mg PO Q12H PRN PRN Reason: Moderate Constipation Sodium Chloride (Ns Flush) 2 ml IV.FLUSH BID [facility] Last Admin: 08/06/18 09:37 Dose: 2 ml Sodium Chloride (Ns Flush) 2 ml IV.FLUSH PRN PRN PRN Reason: FLUSH AFTER USING IV ACCESS Last Admin: 08/06/18 09:37 Dose: 2 ml Tamsulosin HCl (Flomax) 0.4 mg PO DAILY [facility] Last Admin: 08/06/18 09:36 Dose: 0.4 mg Allergies Allergy/AdvReac Type Severity Reaction Status Date / Time No Known Allergies Allergy Verified 08/02/18 03:15 Home Medications Medication Instructions Recorded Confirmed Type atenolol 25 mg PO DAILY 08/02/18 08/02/18 History chlorpheniramine maleate 4 mg PO Q4H 08/02/18 08/02/18 History [Chlor-Trimeton] metformin 1,000 mg PO BID 08/02/18 08/02/18 History pantoprazole [Protonix] 40 mg PO DAILY 08/02/18 08/02/18 History pioglitazone [Actos] 45 mg PO DAILY 08/02/18 08/02/18 History sitagliptin [Januvia] 100 mg PO DAILY 08/02/18 08/02/18 History tamsulosin 0.4 mg PO DAILY 08/02/18 08/02/18 History Physical Exam Vital signs: Vital Signs 08/05/18 16:00 08/05/18 17:00 08/05/18 18:00 Temperature 98.0 F Pulse Rate 79 79 78 Respiratory Rate 29 H 24 18 Blood Pressure 129/58 L 123/57 L 123/57 L Pulse Oximetry 97 98 97 08/05/18 19:00 08/05/18 20:00 08/05/18 20:40 Temperature 98 F Pulse Rate 86 78 Respiratory Rate 29 H 34 H Blood Pressure 121/72 132/63 Pulse Oximetry 97 94 L 96 08/05/18 21:00 08/05/18 22:00 08/05/18 23:00 Temperature Pulse Rate 75 72 75 Respiratory Rate 19 18 17 Blood Pressure 127/58 L 131/60 133/63 Pulse Oximetry 95 96 96 08/06/18 00:00 08/06/18 01:00 08/06/18 01:01 Temperature 98.3 F Pulse Rate 77 69 68 Respiratory Rate 20 22 18 Blood Pressure 139/70 123/58 L Pulse Oximetry 94 L 95 95 08/06/18 02:00 08/06/18 02:01 08/06/18 02:36 Temperature Pulse Rate 80 72 75 Respiratory Rate 27 H 21 23 Blood Pressure 96/46 L 106/51 L Pulse Oximetry 98 96 97 08/06/18 03:00 08/06/18 04:00 08/06/18 04:01 Temperature 98 F Pulse Rate 65 59 L 59 L Respiratory Rate 16 16 17 Blood Pressure 105/51 L Pulse Oximetry 95 91 L 90 L 08/06/18 05:00 08/06/18 06:00 08/06/18 06:01 Temperature Pulse Rate 68 64 64 Respiratory Rate 16 16 18 Blood Pressure 108/54 L 156/67 H Pulse Oximetry 96 98 97 08/06/18 07:00 08/06/18 08:00 08/06/18 09:00 Temperature 98.3 F Pulse Rate 100 H 89 95 H Respiratory Rate 35 H 32 H 32 H Blood Pressure 149/65 H 161/70 H Pulse Oximetry 92 L 94 L 96 08/06/18 09:01 08/06/18 09:33 08/06/18 10:00 Temperature Pulse Rate 97 H 98 H 82 Respiratory Rate 30 H 51 H 25 H Blood Pressure 151/65 H 150/70 H 158/72 H Pulse Oximetry 97 97 97 08/06/18 10:31 08/06/18 11:00 08/06/18 11:01 Temperature Pulse Rate 130 H 124 H Respiratory Rate 27 H 28 H Blood Pressure 161/71 H Pulse Oximetry 94 L 95 95 08/06/18 12:00 08/06/18 12:01 08/06/18 13:00 Temperature 97.9 F Pulse Rate 80 82 89 Respiratory Rate 26 H 29 H 29 H Blood Pressure 137/63 Pulse Oximetry 95 94 L 95 08/06/18 13:01 08/06/18 14:00 08/06/18 14:17 Temperature Pulse Rate 107 H 93 H 94 H Respiratory Rate 28 H 34 H 30 H Blood Pressure 144/60 H 116/63 Pulse Oximetry 95 96 93 L Intake & Output 08/05/18 08/06/18 08/06/18 18:59 06:59 18:59 Intake Total 1820 / 1820 220 / 220 Output Total 1800 / 1800 900 / 900 Balance 20 / -680 / -680 Weight 86.5 kg Intake: IV 600 / 600 100 / 100 SoluMEDROL Inj 250 MG In NS Inj 200 / 200 100 / 100 96 ML @ 200 mls/hr IV.SIG Q8H KATHERINE Rx#:[id number] KCl 20 mEq Premix Inj 20 meq In 400 / 400 100 ml @ 50 mls/hr IV.SIG Q2H PRN Rx#:[id number] Oral 1220 / 1220 70 / 70 Other 50 / 50 Output: Urine 1800 / 1800 880 / 880 Stool 20 / 20 Other: Other Intake Source Saline Solution # Voids 3 Date of Last Bowel Movement 08/05/18 08/05/18 08/05/18 # Bowel Movements 1 # Incontinent Bowel Movements 1 Narrative: GENERAL: NAD, AAOx3 SKIN: Warm and dry. HEAD: Atraumatic. Normocephalic. EYES: Pupils equal and round. No scleral icterus. No injection or drainage. ENT: No nasal bleeding or discharge. Mucous membranes pink and moist. NECK: Trachea midline. No JVD. CARDIOVASCULAR: Regular rate and rhythm. RESPIRATORY: No accessory muscle use. Clear to auscultation. Breath sounds equal bilaterally. GASTROINTESTINAL: Abdomen soft, non-tender, nondistended. Hepatic and splenic margins not palpable. MUSCULOSKELETAL: Extremities without clubbing, cyanosis, or edema. No obvious deformities. NEUROLOGICAL: Awake and alert. No obvious cranial nerve deficits. Motor grossly within normal limits. Five out of 5 muscle strength in the arms and legs. Normal speech. PSYCHIATRIC: Appropriate mood and affect; insight and judgment normal. Results 08/06/18 09:29 08/06/18 04:10 Cardiac Enzymes 08/04/18 08/05/18 08/06/18 Range/Units 16:09 09:42 04:10 AST 43 H (15-37) U/L Lactate Dehydrogenase 249 H (87-241) U/L B-Natriuretic Peptide 758 H (0-100) pg/mL Coagulation 08/05/18 Range/Units 09:42 B-Natriuretic Peptide 758 H (0-100) pg/mL CBC 08/04/18 08/04/18 08/05/18 Range/Units 16:09 22:08 09:42 WBC 15.4 H 8.4 7.3 (4.0-11.0) th/mm3 RBC 2.59 L 2.25 L 2.76 L (4.50-5.90) mil/mm3 Hgb 7.3 L 6.4 L* 8.1 L (13.0-17.0) gm/dL Hct 22.6 L 19.1 L* 23.1 L (39.0-51.0) % Plt Count 4 L* D 16 L* D 16 L* (150-450) th/mm3 Neut # (Auto) 7.4 (1.8-7.7) th/mm3 Lymph # (Auto) 0.5 L (1.0-4.8) th/mm3 [place] # (Auto) 0.5 (0.0-0.9) th/mm3 Eos # (Auto) 0.0 (0.0-0.4) th/mm3 Baso # (Auto) 0.0 (0.0-0.2) th/mm3 08/06/18 08/06/18 Range/Units 04:10 09:29 WBC 5.8 8.1 (4.0-11.0) th/mm3 RBC 2.40 L 2.94 L (4.50-5.90) mil/mm3 Hgb 7.0 L 8.5 L (13.0-17.0) gm/dL Hct 20.1 L* 25.2 L (39.0-51.0) % Plt Count 23 L D 33 L D (150-450) th/mm3 Neut # (Auto) 5.0 7.1 (1.8-7.7) th/mm3 Lymph # (Auto) 0.5 L 0.5 L (1.0-4.8) th/mm3 [place] # (Auto) 0.4 0.5 (0.0-0.9) th/mm3 Eos # (Auto) 0.0 0.0 (0.0-0.4) th/mm3 Baso # (Auto) 0.0 0.0 (0.0-0.2) th/mm3 Comprehensive Metabolic Panel 08/05/18 08/05/18 08/06/18 Range/Units 05:01 21:10 04:10 Sodium 137 140 (136-145) meq/L Potassium 3.2 L 3.9 3.5 (3.5-5.1) meq/L Chloride 103 105 (98-107) meq/L Carbon Dioxide 24.3 26.3 (21.0-32.0) meq/L BUN 26 H 32 H (7-18) mg/dL Creatinine 1.12 1.17 (0.60-1.30) mg/dL Calcium 7.9 L 7.8 L (8.5-10.1) mg/dL AST 43 H (15-37) U/L ALT 30 (12-78) U/L Alkaline Phosphatase 46 (45-117) U/L Total Protein 6.4 D (6.4-8.2) g/dL Albumin 2.4 L (3.4-5.0) g/dL Intake and Output 08/06/18 08/06/18 08/06/18 06:59 14:59 22:59 Intake Total 220 / 220 Output Total 900 / 900 Balance -680 / -680 Intake: IV 100 / 100 SoluMEDROL Inj 250 MG In NS Inj 100 / 100 96 ML @ 200 mls/hr IV.SIG Q8H KATHERINE Rx#:[id number] Oral 70 / 70 Other 50 / 50 Output: Urine 880 / 880 Stool 20 / 20 Other: Other Intake Source Saline Solution # Voids 3 Date of Last Bowel Movement 08/05/18 08/05/18 # Incontinent Bowel Movements 1 Weight 86.5 kg - Imaging and Cardiology Imaging: Impressions Chest X-Ray 08/05/18 08:08 CONCLUSION: Radiographic findings consistent with congestive heart failure and pulmonary edema. These findings are new as compared to the CT of August 02, 2018 Assessment and Plan - Assessment (1) Cardiomyopathy Code(s): I42.9 - Cardiomyopathy, unspecified Status: Acute (2) Wide-complex tachycardia Code(s): I47.2 - Ventricular tachycardia Status: Acute (3) Atrial flutter Code(s): I48.92 - Unspecified atrial flutter Status: Acute (4) Hematochezia Code(s): K92.1 - Melena Status: Acute (5) Lower gastrointestinal hemorrhage Code(s): K92.2 - Gastrointestinal hemorrhage, unspecified Status: Acute (6) Anemia Code(s): D64.9 - Anemia, unspecified Status: Acute (7) Thrombocytopenia Code(s): D69.6 - Thrombocytopenia, unspecified Status: Acute (8) Acute GI bleeding Code(s): K92.2 - Gastrointestinal hemorrhage, unspecified Status: Acute - Plan 1) Cardiomyopathy Unsure of cause at this time Unable to undergo ischemic evaluation due to anemia/thrombocytopenia Con't medical management Atenolol changed to Coreg Lisinopril Will need repeat echo in 3 months while on medical management to evaluate ejection fraction Hx of prostate CA No chemotherapeutic agents that are cardiotoxic given Appears compensated May need Lasix with blood products if continually receiving 2) Wide complex tachycardia Asymptomatic No further episodes since electrolytes have been replaced Probable Aflutter with 2:1 with aberrancy Similar event on EKG from 11/2014 3) Atrial flutter Con't Coreg Not a candidate for anti-coagulation or ASA due to thrombocytopenia 4) Hx of Prostate cancer Received chemo and radiation 5) GI bleed Per GI
[2018-08-06] MEDS ORDERED: Dextrose 50% in Water 50 ML Vial IV.PUSH PRN (17:21)
[2018-08-07] MEDS: Chlorhexidine Gluconate 2% 1 Pack (2 Cloths) TOPICAL SCH (03:52)
[2018-08-07] MEDS: Insulin NovoLOG Aspart Correctional Sugar Inj SQ SCH ×5 (03:53→20:46)
[2018-08-07] MEDS: Pantoprazole Inj 40 MG Vial IV.PUSH SCH ×2 (03:59→17:11)
[2018-08-07 04:51] LABS: Baso % (Auto) 0.1 % (0.0-2.0); Hemoglobin 7.4 gm/dL (13.0-17.0); Lymph # (Auto) 0.6 th/mm3 (1.0-4.8); Lymph % (Auto) 10.2 % (9.0-44.0); Mean Corpuscular HGB Conc 33.7 % (32.0-36.0); Mean Corpuscular Hemoglobin 28.9 pg (27.0-34.0); Mean Corpuscular Volume 85.7 fL (80.0-100.0); Mono # (Auto) 0.5 th/mm3 (0.0-0.9); Mono % (Auto) 8.5 % (0.0-8.0); Neut # (Auto) 4.9 th/mm3 (1.8-7.7); Neut % (Auto) 81.2 % (16.0-70.0); Platelet Count 28 th/mm3 (150-450); Red Blood Count 2.56 mil/mm3 (4.50-5.90); Red Cell Distribution Width 18.2 % (11.6-17.2); White Blood Count 6.1 th/mm3 (4.0-11.0)
[2018-08-07 05:27] LABS: Alanine Aminotransferase 40 U/L (12-78); Albumin 2.6 g/dL (3.4-5.0); Alkaline Phosphatase 51 U/L (45-117); Anion Gap 7 meq/L (5-15); Aspartate Aminotransferase 46 U/L (15-37); Blood Urea Nitrogen 33 mg/dL (7-18); Calcium 8.4 mg/dL (8.5-10.1); Carbon Dioxide 28.7 meq/L (21.0-32.0); Chloride 105 meq/L (98-107); Glomerular Filtration Rate 68 mL/min (>89); Glucose,Random 148 mg/dL (74-106); Magnesium 1.9 mg/dL (1.5-2.5); Phosphorus 2.5 mg/dL (2.5-4.9); Potassium 3.1 meq/L (3.5-5.1); Sodium 141 meq/L (136-145); Total Protein 6.7 g/dL (6.4-8.2)
[2018-08-07] MEDS: Potassium Chloride 25 MEQ Effervescent Tablet PO PRN ×2 (05:37→22:30)
[2018-08-07 06:55] LABS: Platelet Morphology Normal (Normal)
--- NOTE | 2018-08-07 08:44 | P.PNCC ---
Subjective Subjective Remarks/Hospital Course: 83-year-old very pleasant gentleman with history of prostate cancer on hormonal therapy with the last course received in end of May, presents with generalized weakness and gross blood on rectal exam with very loose watery blood. Patient initially was hypotensive prior to arrival with the blood pressure 80/50, after liter of fluid prior to arrival by EVAC the patient's blood pressure now 120/59. Laboratory abnormalities notable for a platelet count of 7000, hemoglobin of 7.1. These are critical levels and a 6 pack of platelets as well as 2 PRBCs now and 2 in reserve been ordered by ED attending, as well as Protonix drip, and octreotide. The patient does have a history of prostate cancer, he has been on Firmagon from his urology/oncologist. 08/03 Patient is lying in bed in NAD. s/p 2u PLT and 2u PRBC yesterday PLT 5 this morning. 08/04 No events overnight. s/p transfusion 1u PLT and 1 u PRBC yesterday PLT count 14 last night from 5. 08/05 Patient s/p transfusion 2u PRBC and 1u PLT since yesterday. Afebrile. PLT count 16 last night. 08/06 Patient seems confused and agitated this morning however he is awake and oriented to time and place. Afebrile. 08/07 Patient is lying in bed in NAD. PLT 28 this morning. Objective Vital Signs / I&O: Vital Signs 08/06/18 09:00 08/06/18 09:01 08/06/18 09:33 Temperature Pulse Rate 95 H 97 H 98 H Respiratory Rate 32 H 30 H 51 H Blood Pressure 151/65 H 150/70 H Pulse Oximetry 96 97 97 08/06/18 10:00 08/06/18 10:31 08/06/18 11:00 Temperature Pulse Rate 82 130 H Respiratory Rate 25 H 27 H Blood Pressure 158/72 H Pulse Oximetry 97 94 L 95 08/06/18 11:01 08/06/18 12:00 08/06/18 12:01 Temperature 97.9 F Pulse Rate 124 H 80 82 Respiratory Rate 28 H 26 H 29 H Blood Pressure 161/71 H 137/63 Pulse Oximetry 95 95 94 L 08/06/18 13:00 08/06/18 13:01 08/06/18 14:00 Temperature Pulse Rate 89 107 H 93 H Respiratory Rate 29 H 28 H 34 H Blood Pressure 144/60 H Pulse Oximetry 95 95 96 08/06/18 14:17 08/06/18 15:00 08/06/18 15:01 Temperature Pulse Rate 94 H Respiratory Rate 30 H Blood Pressure 116/63 151/71 H Pulse Oximetry 93 L 95 93 L 08/06/18 16:00 08/06/18 17:00 08/06/18 18:00 Temperature 97.8 F Pulse Rate 79 75 73 Respiratory Rate 23 33 H 29 H Blood Pressure 140/63 151/70 H 134/62 Pulse Oximetry 99 95 95 08/06/18 19:00 08/06/18 20:00 08/06/18 22:00 Temperature 98 F Pulse Rate 69 69 Respiratory Rate 24 Blood Pressure 137/61 Pulse Oximetry 96 95 08/07/18 00:00 08/07/18 02:00 08/07/18 04:00 Temperature 97.7 F 98.1 F Pulse Rate 66 61 71 Respiratory Rate 19 21 Blood Pressure 136/85 128/61 Pulse Oximetry 96 97 08/07/18 06:00 Temperature Pulse Rate 58 L Respiratory Rate Blood Pressure Pulse Oximetry Intake & Output 08/06/18 08/07/18 08/07/18 18:59 06:59 18:59 Intake Total 900 / 900 250 / 250 Output Total 1500 / 1500 1260 / 1260 Balance -600 / -600 -1010 / -1010 Weight 87.5 kg Intake: IV 100 / 100 SoluMEDROL Inj 250 MG In NS Inj 100 / 100 96 ML @ 200 mls/hr IV.SIG Q8H [facility] Rx#:[id number] Oral 800 / 800 250 / 250 Output: Urine 1500 / 1500 1260 / 1260 Other: Date of Last Bowel Movement 08/06/18 08/07/18 # Bowel Movements 1 2 Result Diagrams: 08/07/18 04:03 08/07/18 04:03 Other Results: Laboratory Results - last 12 hr 08/06/18 08/07/18 08/07/18 23:34 03:51 04:03 WBC 6.1 RBC 2.56 L Hgb 7.4 L Hct 22.0 L MCV 85.7 MCH 28.9 MCHC 33.7 RDW 18.2 H Plt Count 28 L MPV 10.0 Prelim Diff (Auto) Slide review pending Neut % (Auto) 81.2 H Lymph % (Auto) 10.2 [place] % (Auto) 8.5 H Eos % (Auto) 0.0 Baso % (Auto) 0.1 Neut # (Auto) 4.9 Lymph # (Auto) 0.6 L [place] # (Auto) 0.5 Eos # (Auto) 0.0 Baso # (Auto) 0.0 WBC Differential . Diff Scan Auto diff confirmed Differential Comment . Platelet Estimate Low L Platelet Morphology Normal Sodium Potassium Chloride Carbon Dioxide Anion Gap BUN Creatinine Estimated GFR POC Glucose 382 H 217 H Random Glucose Calcium Phosphorus Magnesium Total Bilirubin AST ALT Alkaline Phosphatase Total Protein Albumin 08/07/18 04:03 WBC RBC Hgb Hct MCV MCH MCHC RDW Plt Count MPV Prelim Diff (Auto) Neut % (Auto) Lymph % (Auto) [place] % (Auto) Eos % (Auto) Baso % (Auto) Neut # (Auto) Lymph # (Auto) [place] # (Auto) Eos # (Auto) Baso # (Auto) WBC Differential Diff Scan Differential Comment Platelet Estimate Platelet Morphology Sodium 141 Potassium 3.1 L Chloride 105 Carbon Dioxide 28.7 Anion Gap 7 BUN 33 H Creatinine 1.04 Estimated GFR 68 L POC Glucose Random Glucose 148 H D Calcium 8.4 L Phosphorus 2.5 Magnesium 1.9 Total Bilirubin 0.8 AST 46 H ALT 40 Alkaline Phosphatase 51 Total Protein 6.7 Albumin 2.6 L Imaging: Abdomen/Pelvis CT 08/02/18 04:01 CONCLUSION: 1. 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 2. Nonacute findings include severe atherosclerotic disease, cholelithiasis, stable complex cystic lesion of the left kidney measuring 6.5 cm, and cirrhotic liver. Head CT 08/02/18 04:01 CONCLUSION: No acute intracranial abnormality is identified. . Chest X-Ray 08/05/18 08:08 CONCLUSION: Radiographic findings consistent with congestive heart failure and pulmonary edema. These findings are new as compared to the CT of August 02, 2018 Objective Remarks: GENERAL: Patient is 83 yo lying in bed in NAD SKIN: Warm and dry. HEAD: Normocephalic. EYES: No scleral icterus. No injection or drainage. NECK: Supple, trachea midline. No JVD or lymphadenopathy. CARDIOVASCULAR: Regular rate and rhythm without murmurs, gallops, or rubs. RESPIRATORY: Breath sounds equal bilaterally. No accessory muscle use. GASTROINTESTINAL: Abdomen soft, non-tender, nondistended. MUSCULOSKELETAL: No cyanosis, or edema. Neuro: Awake and alert Assessment and Plan - Assessment and Plan Plan: Severe thrombocytopenia Anemia ? GI bleed Hyperglycemia Hx DM Hx Prostate ca s/p radiation tx. Proctitis per CT abd. Plan Neuro: Awake, alert. Monitor neuro status and avoid sedatives. CT brain: No acute findings Pulm: Continue with Oxygen keep sats >92% Bronchodilators. Check CXR CV: Monitor HR and BP keep MAP>65mmHg Echo showed severe LV dysfunction with EF 30-35% Continue Lisinopril 2.5mg daily and Coreg 3.125mg BID. Not a candidate for ASA due to severe thrombocytopenia Cards is following-Dr. Nation : Monitor renal function, I/O's, electrolytes replacement per protocol. Will need K replacement today GI: On PO cardiac diet. Protonix 40mg BID GI is following. On Hydrocortisone supp BID ID: Monitor for signs of infections ( fever, WBC) Panculture if spikes a fever Heme: Monitor CBC, coags, s/p transfusion 2u PRBC and 2 u PLT 10/10 PLT 5 this morning. s/p transfusion 1 unit PLT and 1 u PRBC 08/03 s/p transfusion 2u PRBC, 1u PLT 08/04 Hematology is following- on solumederol 250mg IV Q8, s/p IgG for ITP. Endo: On high SSI for glycemic control, Levemir 14u BID DVT GI prophylaxis -Teds SCDs -No pharmacological DVT prophylaxis due to severe thrombocytopenia and GI bleed -Protonix IV twice daily Level 3
[2018-08-07] MEDS: Lisinopril 5 MG Tablet PO SCH (09:16)
[2018-08-07] MEDS: Hydrocortisone Acetate 25 MG Supp RECTAL SCH ×2 (09:17→20:47)
[2018-08-07] MEDS: Senna/Docusate Sodium 8.6/50 MG Tablet PO SCH ×2 (09:17→20:48)
[2018-08-07] MEDS: Insulin Detemir Inj 1,000 UNIT/10 ML Vial SQ SCH ×2 (09:17→20:48)
[2018-08-07] MEDS: METHYLPREDNISOLONE SOD SUC IV.SIG SCH (09:24)
[2018-08-07] MEDS: SODIUM CHLOR 0.9% IV.SIG SCH (09:24)
--- NOTE | 2018-08-07 09:26 | XR ---
EXAM DATE: 08/07/2018 8:39 AM EDT AGE/SEX: 83 years / Male INDICATIONS: Short of breath. CLINICAL DATA: This is the patient's subsequent encounter. Patient reports that signs and symptoms h ave been present for 4 - 6 days and indicates a pain score of 0/10. MEDICAL/SURGICAL HISTORY: . Dementia. Carcinoma, prostatic None. COMPARISON: [facility] [place], CHEST 1V SINGLE AP, 08/05/2018. . FINDINGS: Mild diffuse interstitial prominence with minimal bibasilar airspace disease. Cardiac silhouette is m ildly enlarged. Central pulmonary vascularity is slightly indistinct. Osseous structures are intact. CONCLUSION: 1. Cardiomegaly with mild positive fluid balance. 2. Minimal bibasilar airspace disease, presumably atelectasis. Electronically signed by: Gabino Solorzano MD 08/07/2018 9:25 AM EDT
[2018-08-07 12:53] LABS: Baso % (Auto) 0.2 % (0.0-2.0); Eos % (Auto) 0.1 % (0.0-4.0); Hematocrit 24.1 % (39.0-51.0); Lymph # (Auto) 0.5 th/mm3 (1.0-4.8); Lymph % (Auto) 5.9 % (9.0-44.0); Mean Corpuscular HGB Conc 33.2 % (32.0-36.0); Mean Corpuscular Volume 87.3 fL (80.0-100.0); Mean Platelet Volume 10.4 fL (7.0-11.0); Mono # (Auto) 0.5 th/mm3 (0.0-0.9); Mono % (Auto) 6.4 % (0.0-8.0); Neut # (Auto) 6.7 th/mm3 (1.8-7.7); Neut % (Auto) 87.4 % (16.0-70.0); Platelet Count 26 th/mm3 (150-450); Red Blood Count 2.76 mil/mm3 (4.50-5.90); Red Cell Distribution Width 17.9 % (11.6-17.2); White Blood Count 7.6 th/mm3 (4.0-11.0)
--- NOTE | 2018-08-07 13:34 | P.PNCA ---
Subjective Interval history: No events overnight Short wide complex tachycardia overnight Medications and Allergies Active Medications: Active Medications Acetaminophen (Tylenol) 650 mg PO Q6H PRN PRN Reason: PAIN 1-10 AND/OR FEVER >101F Last Admin: 08/03/18 13:32 Dose: 650 mg Acetaminophen (Tylenol) 650 mg PO Q4H PRN PRN Reason: SEE LABEL COMMENTS Al Hydroxide/Mg Hydroxide (Milk Of Aj Liq) 30 ml PO Q12H PRN PRN Reason: Mild Constipation Albuterol (Duoneb Neb (Prn)) 1 ampul NEB Q2HR NEB PRN PRN Reason: WHEEZING Albuterol (Duoneb Neb (Katherine)) 1 ampul NEB Q6HR NEB KATHERINE Last Admin: 08/07/18 09:10 Dose: Not Given Bisacodyl (Dulcolax Supp) 10 mg RECTAL DAILY PRN PRN Reason: SEVERE CONSITIPATION Carvedilol (Coreg) 3.125 mg PO BID [facility] Last Admin: 08/07/18 09:16 Dose: 3.125 mg Chlorhexidine Gluconate (Chlorhexidine 2% Cloth) 3 pack TOPICAL DAILY@0400 KATHERINE Stop: 08/08/18 03:59 Last Admin: 08/07/18 03:52 Dose: 3 pack Chlorhexidine Gluconate (Chlorhexidine 2% Cloth) 3 pack TOPICAL DAILY@0400 PRN PRN Reason: Extra cloth needed Stop: 08/08/18 03:59 Dextrose (D50w Vial) 50 ml IV.PUSH UNSCH PRN PRN Reason: PER HYPOGLYCEMIA PROTOCOL Dextrose (D50w Vial) 50 ml IV.PUSH UNSCH PRN PRN Reason: PER HYPOGLYCEMIA PROTOCOL Diphenhydramine HCl (Benadryl) 25 mg PO Q4H PRN PRN Reason: SEE LABEL COMMENTS Last Admin: 08/03/18 13:32 Dose: 25 mg Glucagon (Glucagon Inj) 1 mg OTHER PRN PRN PRN Reason: for Hypoglycemia Protocol Glucagon (Glucagon Inj) 1 mg OTHER PRN PRN PRN Reason: for Hypoglycemia Protocol Hydrocortisone Acetate (Cortenema) 100 mg RECTAL HS [facility] Last Admin: 08/06/18 21:27 Dose: 100 mg Hydrocortisone Acetate (Hemorrhoidal Hc Supp) 25 mg RECTAL BID [facility] Last Admin: 08/07/18 09:17 Dose: 25 mg Magnesium Sulfate 4 gm/ Sodium (Chloride) 100 mls @ 50 mls/hr IV.SIG UNSCH PRN PRN Reason: For Magnesium 0.9 - 1.1 mg/dL Magnesium Sulfate 2 gm/ Sodium (Chloride) 100 mls @ 50 mls/hr IV.SIG UNSCH PRN PRN Reason: For Magnesium 1.2 - 1.6 mg/dL Potassium Chloride (Kcl 40 Meq Premix Inj) 40 meq in 100 mls @ 25 mls/hr IV.SIG Q2H PRN PRN Reason: For Potassium 2.8 - 3.2 mEq/L Potassium Chloride (Kcl 20 Meq Premix Inj) 20 meq in 100 mls @ 50 mls/hr IV.SIG Q2H PRN PRN Reason: For Potassium 3.3 - 3.5 mEq/L Potassium Chloride (Kcl 40 Meq Premix Inj) 40 meq in 100 mls @ 25 mls/hr IV.SIG UNSCH PRN PRN Reason: For Potassium 3.3 - 3.5 mEq/L Potassium Chloride (Kcl 20 Meq Premix Inj) 20 meq in 100 mls @ 50 mls/hr IV.SIG Q2H PRN PRN Reason: For Potassium 2.8 - 3.2 mEq/L Last Infusion: 08/05/18 17:14 Dose: Infused Potassium Phosphate 30 mmol/ (Sodium Chloride) 260 mls @ 42 mls/hr IV.SIG UNSCH PRN PRN Reason: SEE LABEL COMMENTS Last Infusion: 08/07/18 11:42 Dose: Infused Sodium Phosphate 30 mmol/ (Sodium Chloride) 260 mls @ 42 mls/hr IV.SIG UNSCH PRN PRN Reason: For Phosphorus < 2.5 mg/dL Methylprednisolone Sodium Succinate 250 mg/ Sodium Chloride 100 mls @ 200 mls/ hr IV.SIG DAILY KATHERINE Last Infusion: 08/07/18 11:41 Dose: Infused Insulin Aspart (Novolog Insulin Correctional Sugar Inj) 0 unit SQ Q4HR KATHERINE; Protocol Last Admin: 08/07/18 12:56 Dose: 15 unit Insulin Detemir (Levemir Inj) 14 unit SQ BID [facility] Last Admin: 08/07/18 09:17 Dose: 14 unit Lactulose (Lactulose Liq) 30 ml PO DAILY PRN PRN Reason: SEVERE CONSITIPATION Lisinopril (Prinivil) 2.5 mg PO DAILY [facility] Last Admin: 08/07/18 09:16 Dose: 2.5 mg Magnesium Oxide (Mag-Ox) 800 mg PO UNSCH PRN PRN Reason: For Magnesium 1.2 - 1.6 mg/dL Morphine Sulfate (Morphine Inj) 2 mg IV.PUSH Q2H PRN PRN Reason: PAIN SCALE 6 TO 10 Ondansetron HCl (Zofran Inj) 4 mg IV.PUSH Q6H PRN PRN Reason: NAUSEA OR VOMITING Pantoprazole Sodium (Protonix Inj) 40 mg IV.PUSH Q12H [facility] Last Admin: 08/07/18 03:59 Dose: 40 mg Potassium Bicarb/Potassium Chloride (K-Lyte Cl Eff) 50 meq PO UNSCH PRN PRN Reason: For Potassium 3.3 - 3.5 mEq/L Last Admin: 08/07/18 05:37 Dose: 50 meq Potassium Phosphate (K-Phos Original) 2,000 mg PO Q4H PRN PRN Reason: Phosphorus Less Than 2.5 mg/dL Last Admin: 08/06/18 15:48 Dose: 2,000 mg Potassium Phosphate (K-Phos Original) 2,000 mg PO UNSCH PRN PRN Reason: SEE LABEL COMMENTS Senna/Docusate Sodium (Lisa-Colace) 1 tab PO BID [facility] Last Admin: 08/07/18 09:17 Dose: Not Given Sennosides (Senokot) 17.2 mg PO Q12H PRN PRN Reason: Moderate Constipation Sodium Chloride (Ns Flush) 2 ml IV.FLUSH BID [facility] Last Admin: 08/07/18 09:17 Dose: 2 ml Sodium Chloride (Ns Flush) 2 ml IV.FLUSH PRN PRN PRN Reason: FLUSH AFTER USING IV ACCESS Last Admin: 08/06/18 09:37 Dose: 2 ml Tamsulosin HCl (Flomax) 0.4 mg PO DAILY [facility] Last Admin: 08/07/18 09:16 Dose: 0.4 mg Allergies Allergy/AdvReac Type Severity Reaction Status Date / Time No Known Allergies Allergy Verified 08/02/18 03:15 Home Medications Medication Instructions Recorded Confirmed Type atenolol 25 mg PO DAILY 08/02/18 08/02/18 History chlorpheniramine maleate 4 mg PO Q4H 08/02/18 08/02/18 History [Chlor-Trimeton] metformin 1,000 mg PO BID 08/02/18 08/02/18 History pantoprazole [Protonix] 40 mg PO DAILY 08/02/18 08/02/18 History pioglitazone [Actos] 45 mg PO DAILY 08/02/18 08/02/18 History sitagliptin [Januvia] 100 mg PO DAILY 08/02/18 08/02/18 History tamsulosin 0.4 mg PO DAILY 08/02/18 08/02/18 History Physical Exam Vital signs: Vital Signs 08/06/18 14:00 08/06/18 14:17 08/06/18 15:00 Temperature Pulse Rate 93 H 94 H Respiratory Rate 34 H 30 H Blood Pressure 116/63 Pulse Oximetry 96 93 L 95 08/06/18 15:01 08/06/18 16:00 08/06/18 17:00 Temperature 97.8 F Pulse Rate 79 75 Respiratory Rate 23 33 H Blood Pressure 151/71 H 140/63 151/70 H Pulse Oximetry 93 L 99 95 08/06/18 18:00 08/06/18 19:00 08/06/18 20:00 Temperature 98 F Pulse Rate 73 69 Respiratory Rate 29 H 24 Blood Pressure 134/62 137/61 Pulse Oximetry 95 96 95 08/06/18 22:00 08/07/18 00:00 08/07/18 02:00 Temperature 97.7 F Pulse Rate 69 66 61 Respiratory Rate 19 Blood Pressure 136/85 Pulse Oximetry 96 08/07/18 04:00 08/07/18 06:00 08/07/18 07:00 Temperature 98.1 F Pulse Rate 71 58 L 58 L Respiratory Rate 21 19 Blood Pressure 128/61 Pulse Oximetry 97 93 L 08/07/18 07:01 08/07/18 08:00 08/07/18 08:01 Temperature 97.8 F Pulse Rate 57 L 62 62 Respiratory Rate 19 15 16 Blood Pressure 135/63 127/60 Pulse Oximetry 93 L 99 97 08/07/18 08:41 08/07/18 09:00 08/07/18 09:01 Temperature Pulse Rate 70 67 Respiratory Rate Blood Pressure 136/63 Pulse Oximetry 97 98 97 08/07/18 10:00 Temperature Pulse Rate 74 Respiratory Rate Blood Pressure 138/61 Pulse Oximetry 94 L Intake & Output 08/06/18 08/07/18 08/07/18 18:59 06:59 18:59 Intake Total 900 / 900 250 / 250 360 / 360 Output Total 1500 / 1500 1260 / 1260 Balance -600 / -600 -1010 / -1010 360 / 360 Weight 87.5 kg Intake: IV 100 / 100 360 / 360 SoluMEDROL Inj 250 MG In NS Inj 100 / 100 100 / 100 96 ML @ 200 mls/hr IV.SIG DAILY KATHERINE Rx#:[id number] Potassium Phosphate Inj 30 MMOL 260 / 260 In NS Inj 250 ML @ 42 mls/hr IV.SIG UNSCH PRN Rx#:[id number] Oral 800 / 800 250 / 250 Output: Urine 1500 / 1500 1260 / 1260 Other: Date of Last Bowel Movement 08/06/18 08/07/18 # Bowel Movements 1 2 Narrative: GENERAL: NAD, AAOx3 SKIN: Warm and dry. HEAD: Atraumatic. Normocephalic. EYES: Pupils equal and round. No scleral icterus. No injection or drainage. ENT: No nasal bleeding or discharge. Mucous membranes pink and moist. NECK: Trachea midline. No JVD. CARDIOVASCULAR: Regular rate and rhythm. RESPIRATORY: No accessory muscle use. Clear to auscultation. Breath sounds equal bilaterally. GASTROINTESTINAL: Abdomen soft, non-tender, nondistended. Hepatic and splenic margins not palpable. MUSCULOSKELETAL: Extremities without clubbing, cyanosis, or edema. No obvious deformities. NEUROLOGICAL: Awake and alert. No obvious cranial nerve deficits. Motor grossly within normal limits. Five out of 5 muscle strength in the arms and legs. Normal speech. PSYCHIATRIC: Appropriate mood and affect; insight and judgment normal. Results 08/07/18 12:33 08/07/18 04:03 Cardiac Enzymes 08/06/18 08/07/18 Range/Units 04:10 04:03 AST 43 H 46 H (15-37) U/L CBC 08/06/18 08/06/18 08/07/18 Range/Units 04:10 09:29 04:03 WBC 5.8 8.1 6.1 (4.0-11.0) th/mm3 RBC 2.40 L 2.94 L 2.56 L (4.50-5.90) mil/mm3 Hgb 7.0 L 8.5 L 7.4 L (13.0-17.0) gm/dL Hct 20.1 L* 25.2 L 22.0 L (39.0-51.0) % Plt Count 23 L D 33 L D 28 L (150-450) th/mm3 Neut # (Auto) 5.0 7.1 4.9 (1.8-7.7) th/mm3 Lymph # (Auto) 0.5 L 0.5 L 0.6 L (1.0-4.8) th/mm3 Lea # (Auto) 0.4 0.5 0.5 (0.0-0.9) th/mm3 Eos # (Auto) 0.0 0.0 0.0 (0.0-0.4) th/mm3 Baso # (Auto) 0.0 0.0 0.0 (0.0-0.2) th/mm3 08/07/18 Range/Units 12:33 WBC 7.6 (4.0-11.0) th/mm3 RBC 2.76 L (4.50-5.90) mil/mm3 Hgb 8.0 L (13.0-17.0) gm/dL Hct 24.1 L (39.0-51.0) % Plt Count 26 L (150-450) th/mm3 Neut # (Auto) 6.7 (1.8-7.7) th/mm3 Lymph # (Auto) 0.5 L (1.0-4.8) th/mm3 Lea # (Auto) 0.5 (0.0-0.9) th/mm3 Eos # (Auto) 0.0 (0.0-0.4) th/mm3 Baso # (Auto) 0.0 (0.0-0.2) th/mm3 Comprehensive Metabolic Panel 08/05/18 08/06/18 08/06/18 Range/Units 21:10 04:10 18:35 Sodium 140 (136-145) meq/L Potassium 3.9 3.5 3.4 L (3.5-5.1) meq/L Chloride 105 (98-107) meq/L Carbon Dioxide 26.3 (21.0-32.0) meq/L BUN 32 H (7-18) mg/dL Creatinine 1.17 (0.60-1.30) mg/dL Calcium 7.8 L (8.5-10.1) mg/dL AST 43 H (15-37) U/L ALT 30 (12-78) U/L Alkaline Phosphatase 46 (45-117) U/L Total Protein 6.4 D (6.4-8.2) g/dL Albumin 2.4 L (3.4-5.0) g/dL 08/07/18 Range/Units 04:03 Sodium 141 (136-145) meq/L Potassium 3.1 L (3.5-5.1) meq/L Chloride 105 (98-107) meq/L Carbon Dioxide 28.7 (21.0-32.0) meq/L BUN 33 H (7-18) mg/dL Creatinine 1.04 (0.60-1.30) mg/dL Calcium 8.4 L (8.5-10.1) mg/dL AST 46 H (15-37) U/L ALT 40 (12-78) U/L Alkaline Phosphatase 51 (45-117) U/L Total Protein 6.7 (6.4-8.2) g/dL Albumin 2.6 L (3.4-5.0) g/dL Intake and Output 08/06/18 08/07/18 08/07/18 22:59 06:59 14:59 Intake Total 900 / 900 250 / 250 360 / 360 Output Total 1500 / 1500 1260 / 1260 Balance -600 / -600 -1010 / -1010 360 / 360 Intake: IV 100 / 100 360 / 360 SoluMEDROL Inj 250 MG In NS Inj 100 / 100 100 / 100 96 ML @ 200 mls/hr IV.SIG DAILY KATHERINE Rx#:[id number] Potassium Phosphate Inj 30 MMOL 260 / 260 In NS Inj 250 ML @ 42 mls/hr IV.SIG UNSCH PRN Rx#:[id number] Oral 800 / 800 250 / 250 Output: Urine 1500 / 1500 1260 / 1260 Other: Date of Last Bowel Movement 08/06/18 08/07/18 # Bowel Movements 1 2 Weight 87.5 kg - Imaging and Cardiology Imaging: Impressions Chest X-Ray 08/07/18 08:39 CONCLUSION: 1. Cardiomegaly with mild positive fluid balance. 2. Minimal bibasilar airspace disease, presumably atelectasis. Assessment and Plan - Assessment (1) Cardiomyopathy Code(s): I42.9 - Cardiomyopathy, unspecified Status: Acute (2) Wide-complex tachycardia Code(s): I47.2 - Ventricular tachycardia Status: Acute (3) Atrial flutter Code(s): I48.92 - Unspecified atrial flutter Status: Acute (4) Hematochezia Code(s): K92.1 - Melena Status: Acute (5) Lower gastrointestinal hemorrhage Code(s): K92.2 - Gastrointestinal hemorrhage, unspecified Status: Acute (6) Anemia Code(s): D64.9 - Anemia, unspecified Status: Acute (7) Thrombocytopenia Code(s): D69.6 - Thrombocytopenia, unspecified Status: Acute (8) Acute GI bleeding Code(s): K92.2 - Gastrointestinal hemorrhage, unspecified Status: Acute - Plan 1) Cardiomyopathy Unsure of cause at this time Unable to undergo ischemic evaluation due to anemia/thrombocytopenia Con't medical management Atenolol changed to Coreg Lisinopril Will need repeat echo in 3 months while on medical management to evaluate ejection fraction Hx of prostate CA No chemotherapeutic agents that are cardiotoxic given Appears compensated May need Lasix with blood products if continually receiving 2) Wide complex tachycardia Asymptomatic Probable Aflutter with 2:1 with aberrancy Similar event on EKG from 11/2014 3) Atrial flutter Con't Coreg Not a candidate for anti-coagulation or ASA due to thrombocytopenia 4) Hx of Prostate cancer Received chemo and radiation 5) GI bleed Per GI
[2018-08-07 13:37] LABS: Ovalocytes 1+; Platelet Morphology Normal (Normal)
--- NOTE | 2018-08-07 14:27 | P.PNGI ---
Subjective Interval history: Continues in the intensive care setting, pale, soft bowel sounds no obvious abdominal pain Rectal bleeding x1 small maroon stool, hemoglobin increased today to 8. No nausea no vomiting <Ekta Wan - Last Filed: 08/07/18 14:27> Physical Exam Vital signs: Vital Signs 08/06/18 15:00 08/06/18 15:01 08/06/18 16:00 Temperature 97.8 F Pulse Rate 79 Respiratory Rate 23 Blood Pressure 151/71 H 140/63 Pulse Oximetry 95 93 L 99 08/06/18 17:00 08/06/18 18:00 08/06/18 19:00 Temperature Pulse Rate 75 73 Respiratory Rate 33 H 29 H Blood Pressure 151/70 H 134/62 Pulse Oximetry 95 95 96 08/06/18 20:00 08/06/18 22:00 08/07/18 00:00 Temperature 98 F 97.7 F Pulse Rate 69 69 66 Respiratory Rate 24 19 Blood Pressure 137/61 136/85 Pulse Oximetry 95 96 08/07/18 02:00 08/07/18 04:00 08/07/18 06:00 Temperature 98.1 F Pulse Rate 61 71 58 L Respiratory Rate 21 Blood Pressure 128/61 Pulse Oximetry 97 08/07/18 07:00 08/07/18 07:01 08/07/18 08:00 Temperature 97.8 F Pulse Rate 58 L 57 L 62 Respiratory Rate 19 19 15 Blood Pressure 135/63 Pulse Oximetry 93 L 93 L 99 08/07/18 08:01 08/07/18 08:41 08/07/18 09:00 Temperature Pulse Rate 62 70 Respiratory Rate 16 Blood Pressure 127/60 Pulse Oximetry 97 97 98 08/07/18 09:01 08/07/18 10:00 Temperature Pulse Rate 67 74 Respiratory Rate Blood Pressure 136/63 138/61 Pulse Oximetry 97 94 L Intake & Output 08/06/18 08/07/18 08/07/18 18:59 06:59 18:59 Intake Total 900 / 900 250 / 250 360 / 360 Output Total 1500 / 1500 1260 / 1260 Balance -600 / -600 -1010 / -1010 360 / 360 Weight 87.5 kg Intake: IV 100 / 100 360 / 360 SoluMEDROL Inj 250 MG In NS Inj 100 / 100 100 / 100 96 ML @ 200 mls/hr IV.SIG DAILY MERON Rx#:[id number] Potassium Phosphate Inj 30 MMOL 260 / 260 In NS Inj 250 ML @ 42 mls/hr IV.SIG UNSCH PRN Rx#:[id number] Oral 800 / 800 250 / 250 Output: Urine 1500 / 1500 1260 / 1260 Other: Date of Last Bowel Movement 08/06/18 08/07/18 # Bowel Movements 1 2 - Constitutional mild distress, chronically ill appearing - Routine HEENT Exam Head: Present: normocephalic ENT: Present: mucous membranes moist - Routine Neck Exam Present: supple - Routine Respiratory Exam Present: accessory muscle use (No shortness of breath at rest) - Routine Cardiovascular Exam Present: S1, S2, irregular rhythm (Sinus rhythm with bundle branch block, moderate amount of ectopy noted on monitor) - Routine Abdominal Exam Present: soft (No obvious abdominal pain to light palpation, positive bowel sounds, round) <Ekta Wan - Last Filed: 08/07/18 14:27> Vital signs: Vital Signs 08/06/18 18:00 08/06/18 19:00 08/06/18 20:00 Temperature 98 F Pulse Rate 73 69 Respiratory Rate 29 H 24 Blood Pressure 134/62 137/61 Pulse Oximetry 95 96 95 08/06/18 22:00 08/07/18 00:00 08/07/18 02:00 Temperature 97.7 F Pulse Rate 69 66 61 Respiratory Rate 19 Blood Pressure 136/85 Pulse Oximetry 96 08/07/18 04:00 08/07/18 06:00 08/07/18 07:00 Temperature 98.1 F Pulse Rate 71 58 L 58 L Respiratory Rate 21 19 Blood Pressure 128/61 Pulse Oximetry 97 93 L 08/07/18 07:01 08/07/18 08:00 08/07/18 08:01 Temperature 97.8 F Pulse Rate 57 L 62 62 Respiratory Rate 19 15 16 Blood Pressure 135/63 127/60 Pulse Oximetry 93 L 99 97 08/07/18 08:41 08/07/18 09:00 08/07/18 09:01 Temperature Pulse Rate 70 67 Respiratory Rate Blood Pressure 136/63 Pulse Oximetry 97 98 97 08/07/18 10:00 08/07/18 11:00 08/07/18 11:06 Temperature Pulse Rate 78 67 71 Respiratory Rate Blood Pressure 138/61 171/72 H Pulse Oximetry 94 L 96 94 L 08/07/18 12:00 08/07/18 13:00 08/07/18 13:02 Temperature 98.1 F Pulse Rate 64 77 74 Respiratory Rate Blood Pressure 167/68 H Pulse Oximetry 99 97 94 L 08/07/18 14:00 08/07/18 14:01 08/07/18 14:43 Temperature Pulse Rate 75 70 69 Respiratory Rate 16 Blood Pressure 166/72 H Pulse Oximetry 08/07/18 15:00 08/07/18 15:29 08/07/18 16:00 Temperature 98.6 F Pulse Rate 75 78 71 Respiratory Rate 23 Blood Pressure 183/74 H Pulse Oximetry 97 97 96 08/07/18 16:04 08/07/18 17:00 08/07/18 17:30 Temperature Pulse Rate 73 70 72 Respiratory Rate 18 Blood Pressure 136/63 137/63 Pulse Oximetry 98 98 Intake & Output 08/06/18 08/07/18 08/07/18 18:59 06:59 18:59 Intake Total 900 / 900 250 / 250 840 / 840 Output Total 1500 / 1500 1260 / 1260 800 / 800 Balance -600 / -600 -1010 / -1010 40 / 40 Weight 87.5 kg Intake: IV 100 / 100 360 / 360 SoluMEDROL Inj 250 MG In NS Inj 100 / 100 100 / 100 96 ML @ 200 mls/hr IV.SIG DAILY MERON Rx#:[id number] Potassium Phosphate Inj 30 MMOL 260 / 260 In NS Inj 250 ML @ 42 mls/hr IV.SIG UNSCH PRN Rx#:[id number] Oral 800 / 800 250 / 250 480 / 480 Output: Urine 1500 / 1500 1260 / 1260 800 / 800 Other: Date of Last Bowel Movement 08/06/18 08/07/18 08/07/18 # Bowel Movements 1 2 2 <Mounika Ambrocio - Last Filed: 08/07/18 17:36> Results - Labs CBC & Chem 7: 08/07/18 12:33 08/07/18 04:03 Laboratory Results - last 24 hr 08/06/18 08/06/18 08/06/18 17:16 18:35 19:10 WBC RBC Hgb Hct MCV MCH MCHC RDW Plt Count MPV Prelim Diff (Auto) Neut % (Auto) Lymph % (Auto) [place] % (Auto) Eos % (Auto) Baso % (Auto) Neut # (Auto) Lymph # (Auto) [place] # (Auto) Eos # (Auto) Baso # (Auto) WBC Differential Diff Scan Differential Comment Platelet Estimate Platelet Morphology Ovalocytes Sodium Potassium 3.4 L Chloride Carbon Dioxide Anion Gap BUN Creatinine Estimated GFR POC Glucose 431 H 426 H Random Glucose Calcium Phosphorus Magnesium Total Bilirubin AST ALT Alkaline Phosphatase Total Protein Albumin 08/06/18 08/07/18 08/07/18 23:34 03:51 04:03 WBC 6.1 RBC 2.56 L Hgb 7.4 L Hct 22.0 L MCV 85.7 MCH 28.9 MCHC 33.7 RDW 18.2 H Plt Count 28 L MPV 10.0 Prelim Diff (Auto) Slide review pending Neut % (Auto) 81.2 H Lymph % (Auto) 10.2 [place] % (Auto) 8.5 H Eos % (Auto) 0.0 Baso % (Auto) 0.1 Neut # (Auto) 4.9 Lymph # (Auto) 0.6 L [place] # (Auto) 0.5 Eos # (Auto) 0.0 Baso # (Auto) 0.0 WBC Differential . Diff Scan Auto diff confirmed Differential Comment . Platelet Estimate Low L Platelet Morphology Normal Ovalocytes Sodium Potassium Chloride Carbon Dioxide Anion Gap BUN Creatinine Estimated GFR POC Glucose 382 H 217 H Random Glucose Calcium Phosphorus Magnesium Total Bilirubin AST ALT Alkaline Phosphatase Total Protein Albumin 08/07/18 08/07/18 08/07/18 04:03 09:15 12:33 WBC 7.6 RBC 2.76 L Hgb 8.0 L Hct 24.1 L MCV 87.3 MCH 29.0 MCHC 33.2 RDW 17.9 H Plt Count 26 L MPV 10.4 Prelim Diff (Auto) Slide review pending Neut % (Auto) 87.4 H Lymph % (Auto) 5.9 L [place] % (Auto) 6.4 Eos % (Auto) 0.1 Baso % (Auto) 0.2 Neut # (Auto) 6.7 Lymph # (Auto) 0.5 L [place] # (Auto) 0.5 Eos # (Auto) 0.0 Baso # (Auto) 0.0 WBC Differential . Diff Scan Auto diff confirmed Differential Comment . Platelet Estimate Low L Platelet Morphology Normal Ovalocytes 1+ H Sodium 141 Potassium 3.1 L Chloride 105 Carbon Dioxide 28.7 Anion Gap 7 BUN 33 H Creatinine 1.04 Estimated GFR 68 L POC Glucose 112 H Random Glucose 148 H D Calcium 8.4 L Phosphorus 2.5 Magnesium 1.9 Total Bilirubin 0.8 AST 46 H ALT 40 Alkaline Phosphatase 51 Total Protein 6.7 Albumin 2.6 L 08/07/18 12:55 WBC RBC Hgb Hct MCV MCH MCHC RDW Plt Count MPV Prelim Diff (Auto) Neut % (Auto) Lymph % (Auto) [place] % (Auto) Eos % (Auto) Baso % (Auto) Neut # (Auto) Lymph # (Auto) [place] # (Auto) Eos # (Auto) Baso # (Auto) WBC Differential Diff Scan Differential Comment Platelet Estimate Platelet Morphology Ovalocytes Sodium Potassium Chloride Carbon Dioxide Anion Gap BUN Creatinine Estimated GFR POC Glucose 282 H Random Glucose Calcium Phosphorus Magnesium Total Bilirubin AST ALT Alkaline Phosphatase Total Protein Albumin - Imaging Impressions Chest X-Ray 08/07/18 08:39 CONCLUSION: 1. Cardiomegaly with mild positive fluid balance. 2. Minimal bibasilar airspace disease, presumably atelectasis. <Ekta Wan - Last Filed: 08/07/18 14:27> - Labs CBC & Chem 7: 08/07/18 12:33 08/07/18 04:03 Laboratory Results - last 24 hr 08/06/18 08/06/18 08/06/18 18:35 19:10 23:34 WBC RBC Hgb Hct MCV MCH MCHC RDW Plt Count MPV Prelim Diff (Auto) Neut % (Auto) Lymph % (Auto) [place] % (Auto) Eos % (Auto) Baso % (Auto) Neut # (Auto) Lymph # (Auto) [place] # (Auto) Eos # (Auto) Baso # (Auto) WBC Differential Diff Scan Differential Comment Platelet Estimate Platelet Morphology Ovalocytes Sodium Potassium 3.4 L Chloride Carbon Dioxide Anion Gap BUN Creatinine Estimated GFR POC Glucose 426 H 382 H Random Glucose Calcium Phosphorus Magnesium Total Bilirubin AST ALT Alkaline Phosphatase Total Protein Albumin 08/07/18 08/07/18 08/07/18 03:51 04:03 04:03 WBC 6.1 RBC 2.56 L Hgb 7.4 L Hct 22.0 L MCV 85.7 MCH 28.9 MCHC 33.7 RDW 18.2 H Plt Count 28 L MPV 10.0 Prelim Diff (Auto) Slide review pending Neut % (Auto) 81.2 H Lymph % (Auto) 10.2 [place] % (Auto) 8.5 H Eos % (Auto) 0.0 Baso % (Auto) 0.1 Neut # (Auto) 4.9 Lymph # (Auto) 0.6 L [place] # (Auto) 0.5 Eos # (Auto) 0.0 Baso # (Auto) 0.0 WBC Differential . Diff Scan Auto diff confirmed Differential Comment . Platelet Estimate Low L Platelet Morphology Normal Ovalocytes Sodium 141 Potassium 3.1 L Chloride 105 Carbon Dioxide 28.7 Anion Gap 7 BUN 33 H Creatinine 1.04 Estimated GFR 68 L POC Glucose 217 H Random Glucose 148 H D Calcium 8.4 L Phosphorus 2.5 Magnesium 1.9 Total Bilirubin 0.8 AST 46 H ALT 40 Alkaline Phosphatase 51 Total Protein 6.7 Albumin 2.6 L 08/07/18 08/07/18 08/07/18 09:15 12:33 12:55 WBC 7.6 RBC 2.76 L Hgb 8.0 L Hct 24.1 L MCV 87.3 MCH 29.0 MCHC 33.2 RDW 17.9 H Plt Count 26 L MPV 10.4 Prelim Diff (Auto) Slide review pending Neut % (Auto) 87.4 H Lymph % (Auto) 5.9 L [place] % (Auto) 6.4 Eos % (Auto) 0.1 Baso % (Auto) 0.2 Neut # (Auto) 6.7 Lymph # (Auto) 0.5 L [place] # (Auto) 0.5 Eos # (Auto) 0.0 Baso # (Auto) 0.0 WBC Differential . Diff Scan Auto diff confirmed Differential Comment . Platelet Estimate Low L Platelet Morphology Normal Ovalocytes 1+ H Sodium Potassium Chloride Carbon Dioxide Anion Gap BUN Creatinine Estimated GFR POC Glucose 112 H 282 H Random Glucose Calcium Phosphorus Magnesium Total Bilirubin AST ALT Alkaline Phosphatase Total Protein Albumin 08/07/18 17:06 WBC RBC Hgb Hct MCV MCH MCHC RDW Plt Count MPV Prelim Diff (Auto) Neut % (Auto) Lymph % (Auto) [place] % (Auto) Eos % (Auto) Baso % (Auto) Neut # (Auto) Lymph # (Auto) [place] # (Auto) Eos # (Auto) Baso # (Auto) WBC Differential Diff Scan Differential Comment Platelet Estimate Platelet Morphology Ovalocytes Sodium Potassium Chloride Carbon Dioxide Anion Gap BUN Creatinine Estimated GFR POC Glucose 336 H Random Glucose Calcium Phosphorus Magnesium Total Bilirubin AST ALT Alkaline Phosphatase Total Protein Albumin - Imaging Impressions Chest X-Ray 08/07/18 08:39 CONCLUSION: 1. Cardiomegaly with mild positive fluid balance. 2. Minimal bibasilar airspace disease, presumably atelectasis. <Mounika Ambrocio - Last Filed: 08/07/18 17:36> Assessment and Plan - Plan Bright red blood per rectum No more bleeding since yesterday afternoon. hgb today 8.1. Received 5 units of blood Has never had an EGD or colonoscopy. Denies taking any blood thinners. 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 Prostate cancer status post 45 treatments of radiation completed in July 2017 and patient reports once a month injections that he finished in April of this year. Thrombocytopeniaplatelet count currently 16. Patient does have history of thrombocytopenia but has never been this low according to previous chart review. States that he has not seen a video tape transferrer or oncologist in the past. Oncology on the case, plt today is 16 s/p 4 units of plt IV steroids, status post immunoglobulin on 08/04/2018. ? Ritxuan/Cytoxan 08/07/2018 patient continues in the intensive care setting, maroon stool x1, no further bleeding today. Hemoglobin appears stable at 8. Patient talkative and appears slightly anxious and overwhelmed by his current condition. States he never had any heart problems before. Currently has no nausea no vomiting no abdominal pain and no abdominal cramping. Discussed with patient possible colonoscopy when he is more stable and feeling better, platelet count 28, mild gradual trend up. Status post prostate cancer with radiation, which could contribute to patient's thrombocytopenia. Will continue HC suppositories for now to assist with any proctitis. Explained to patient Plan Diet , cardiac diet, encouraged hydration with patient PPI Zofran as needed Continue steroids for now Continue suppositories for now Monitor labs with special attention hemoglobin and transfuse as needed Monitor platelet count and consider colonoscopy mid to late week dependent on patient's stability. Supportive care Patient was seen per myself and Dr. Ambrocio, note was written on her behalf <Ekta Wan - Last Filed: 08/07/18 14:27> - Attending Attestation agree with above <Mounika Ambrocio - Last Filed: 08/07/18 17:36>
--- NOTE | 2018-08-07 17:46 | P.PNONC ---
Subjective Interval history: Afebrile Patient resting in bed talking with the nurse in no acute distress Denies any bleeding Objective Vital Signs/Intake & Output: Vital Signs 08/06/18 18:00 08/06/18 19:00 08/06/18 20:00 Temperature 98 F Pulse Rate 73 69 Respiratory Rate 29 H 24 Blood Pressure 134/62 137/61 Pulse Oximetry 95 96 95 08/06/18 22:00 08/07/18 00:00 08/07/18 02:00 Temperature 97.7 F Pulse Rate 69 66 61 Respiratory Rate 19 Blood Pressure 136/85 Pulse Oximetry 96 08/07/18 04:00 08/07/18 06:00 08/07/18 07:00 Temperature 98.1 F Pulse Rate 71 58 L 58 L Respiratory Rate 21 19 Blood Pressure 128/61 Pulse Oximetry 97 93 L 08/07/18 07:01 08/07/18 08:00 08/07/18 08:01 Temperature 97.8 F Pulse Rate 57 L 62 62 Respiratory Rate 19 15 16 Blood Pressure 135/63 127/60 Pulse Oximetry 93 L 99 97 08/07/18 08:41 08/07/18 09:00 08/07/18 09:01 Temperature Pulse Rate 70 67 Respiratory Rate Blood Pressure 136/63 Pulse Oximetry 97 98 97 08/07/18 10:00 08/07/18 11:00 08/07/18 11:06 Temperature Pulse Rate 78 67 71 Respiratory Rate Blood Pressure 138/61 171/72 H Pulse Oximetry 94 L 96 94 L 08/07/18 12:00 08/07/18 13:00 08/07/18 13:02 Temperature 98.1 F Pulse Rate 64 77 74 Respiratory Rate Blood Pressure 167/68 H Pulse Oximetry 99 97 94 L 08/07/18 14:00 08/07/18 14:01 08/07/18 14:43 Temperature Pulse Rate 75 70 69 Respiratory Rate 16 Blood Pressure 166/72 H Pulse Oximetry 08/07/18 15:00 08/07/18 15:29 08/07/18 16:00 Temperature 98.6 F Pulse Rate 75 78 71 Respiratory Rate 23 Blood Pressure 183/74 H Pulse Oximetry 97 97 96 08/07/18 16:04 08/07/18 17:00 08/07/18 17:30 Temperature Pulse Rate 73 70 72 Respiratory Rate 18 Blood Pressure 136/63 137/63 Pulse Oximetry 98 98 Intake & Output 08/06/18 08/07/18 08/07/18 18:59 06:59 18:59 Intake Total 900 / 900 250 / 250 840 / 840 Output Total 1500 / 1500 1260 / 1260 800 / 800 Balance -600 / -600 -1010 / -1010 40 / 40 Weight 192 lb 14.472 oz Intake: IV 100 / 100 360 / 360 SoluMEDROL Inj 250 MG In NS Inj 100 / 100 100 / 100 96 ML @ 200 mls/hr IV.SIG DAILY KATHERINE Rx#:[id number] Potassium Phosphate Inj 30 MMOL 260 / 260 In NS Inj 250 ML @ 42 mls/hr IV.SIG UNSCH PRN Rx#:[id number] Oral 800 / 800 250 / 250 480 / 480 Output: Urine 1500 / 1500 1260 / 1260 800 / 800 Other: Date of Last Bowel Movement 08/06/18 08/07/18 08/07/18 # Bowel Movements 1 2 2 Result Diagrams: 08/09/18 05:23 08/09/18 05:23 Laboratory Results: Laboratory Results - last 24 hr 08/06/18 08/06/18 08/06/18 18:35 19:10 23:34 WBC RBC Hgb Hct MCV MCH MCHC RDW Plt Count MPV Prelim Diff (Auto) Neut % (Auto) Lymph % (Auto) [place] % (Auto) Eos % (Auto) Baso % (Auto) Neut # (Auto) Lymph # (Auto) [place] # (Auto) Eos # (Auto) Baso # (Auto) WBC Differential Diff Scan Differential Comment Platelet Estimate Platelet Morphology Ovalocytes Sodium Potassium 3.4 L Chloride Carbon Dioxide Anion Gap BUN Creatinine Estimated GFR POC Glucose 426 H 382 H Random Glucose Calcium Phosphorus Magnesium Total Bilirubin AST ALT Alkaline Phosphatase Total Protein Albumin 08/07/18 08/07/18 08/07/18 03:51 04:03 04:03 WBC 6.1 RBC 2.56 L Hgb 7.4 L Hct 22.0 L MCV 85.7 MCH 28.9 MCHC 33.7 RDW 18.2 H Plt Count 28 L MPV 10.0 Prelim Diff (Auto) Slide review pending Neut % (Auto) 81.2 H Lymph % (Auto) 10.2 [place] % (Auto) 8.5 H Eos % (Auto) 0.0 Baso % (Auto) 0.1 Neut # (Auto) 4.9 Lymph # (Auto) 0.6 L [place] # (Auto) 0.5 Eos # (Auto) 0.0 Baso # (Auto) 0.0 WBC Differential . Diff Scan Auto diff confirmed Differential Comment . Platelet Estimate Low L Platelet Morphology Normal Ovalocytes Sodium 141 Potassium 3.1 L Chloride 105 Carbon Dioxide 28.7 Anion Gap 7 BUN 33 H Creatinine 1.04 Estimated GFR 68 L POC Glucose 217 H Random Glucose 148 H D Calcium 8.4 L Phosphorus 2.5 Magnesium 1.9 Total Bilirubin 0.8 AST 46 H ALT 40 Alkaline Phosphatase 51 Total Protein 6.7 Albumin 2.6 L 08/07/18 08/07/18 08/07/18 09:15 12:33 12:55 WBC 7.6 RBC 2.76 L Hgb 8.0 L Hct 24.1 L MCV 87.3 MCH 29.0 MCHC 33.2 RDW 17.9 H Plt Count 26 L MPV 10.4 Prelim Diff (Auto) Slide review pending Neut % (Auto) 87.4 H Lymph % (Auto) 5.9 L [place] % (Auto) 6.4 Eos % (Auto) 0.1 Baso % (Auto) 0.2 Neut # (Auto) 6.7 Lymph # (Auto) 0.5 L [place] # (Auto) 0.5 Eos # (Auto) 0.0 Baso # (Auto) 0.0 WBC Differential . Diff Scan Auto diff confirmed Differential Comment . Platelet Estimate Low L Platelet Morphology Normal Ovalocytes 1+ H Sodium Potassium Chloride Carbon Dioxide Anion Gap BUN Creatinine Estimated GFR POC Glucose 112 H 282 H Random Glucose Calcium Phosphorus Magnesium Total Bilirubin AST ALT Alkaline Phosphatase Total Protein Albumin 08/07/18 17:06 WBC RBC Hgb Hct MCV MCH MCHC RDW Plt Count MPV Prelim Diff (Auto) Neut % (Auto) Lymph % (Auto) [place] % (Auto) Eos % (Auto) Baso % (Auto) Neut # (Auto) Lymph # (Auto) [place] # (Auto) Eos # (Auto) Baso # (Auto) WBC Differential Diff Scan Differential Comment Platelet Estimate Platelet Morphology Ovalocytes Sodium Potassium Chloride Carbon Dioxide Anion Gap BUN Creatinine Estimated GFR POC Glucose 336 H Random Glucose Calcium Phosphorus Magnesium Total Bilirubin AST ALT Alkaline Phosphatase Total Protein Albumin Imaging Studies: Impressions Chest X-Ray 08/07/18 08:39 CONCLUSION: 1. Cardiomegaly with mild positive fluid balance. 2. Minimal bibasilar airspace disease, presumably atelectasis. Medications: Active Medications Generic Name Dose Route Start Last Admin Trade Name Freq PRN Reason Stop Dose Admin Acetaminophen 650 mg 08/02/18 04:18 08/03/18 13:32 Tylenol PO 650 mg Q6H PRN Administration PAIN 1-10 AND/OR FEVER >101F Albuterol 1 ampul 08/05/18 10:00 08/07/18 14:41 Duoneb Neb (Katherine) NEB 1 ampul Q6HR NEB KATHERINE Administration Carvedilol 3.125 mg 08/05/18 09:00 08/07/18 09:16 Coreg PO 3.125 mg BID KATHERINE Administration Chlorhexidine Gluconate 3 pack 08/03/18 04:00 08/07/18 03:52 Chlorhexidine 2% Cloth TOPICAL 08/08/18 03:59 3 pack DAILY@0400 KATHERINE Administration Diphenhydramine HCl 25 mg 08/03/18 13:11 08/03/18 13:32 Benadryl PO 25 mg Q4H PRN Administration SEE LABEL COMMENTS Hydrocortisone Acetate 100 mg 08/02/18 21:00 08/06/18 21:27 Cortenema RECTAL 100 mg HS KATHERINE Administration Hydrocortisone Acetate 25 mg 08/02/18 21:00 08/07/18 09:17 Hemorrhoidal Hc Supp RECTAL 25 mg BID KATHERINE Administration Potassium Chloride 20 meq in 100 mls @ 50 mls/hr 08/05/18 08:03 08/05/18 17: 14 Kcl 20 Meq Premix Inj IV.SIG Infused Q2H PRN Infusion For Potassium 2.8 - 3.2 mEq/L Potassium Phosphate 30 mmol/ 260 mls @ 42 mls/hr 08/05/18 08:03 08/07/18 11: 42 Sodium Chloride IV.SIG Infused UNSCH PRN Infusion SEE LABEL COMMENTS Methylprednisolone Sodium 100 mls @ 200 mls/hr 08/07/18 09:00 08/07/18 11:41 Succinate 250 mg/ Sodium IV.SIG Infused Chloride DAILY KATHERINE Infusion Insulin Aspart 0 unit 08/06/18 20:00 08/07/18 17:11 Novolog Insulin Correctional Sugar Inj SQ 20 unit Q4HR KATHERINE Administration Protocol Insulin Detemir 14 unit 08/06/18 09:00 10/15/18 09:17 Levemir Inj SQ 14 unit BID KATHERINE Administration Lisinopril 2.5 mg 08/05/18 09:00 08/07/18 09:16 Prinivil PO 2.5 mg DAILY KATHERINE Administration Pantoprazole Sodium 40 mg 08/02/18 05:00 08/07/18 17:11 Protonix Inj IV.PUSH 40 mg Q12H KATHERINE Administration Potassium Bicarb/Potassium Chloride 50 meq 08/05/18 08:43 08/07/18 05:37 K-Lyte Cl Eff PO 50 meq UNSCH PRN Administration For Potassium 3.3 - 3.5 mEq/L Potassium Phosphate 2,000 mg 08/05/18 08:03 08/06/18 15:48 K-Phos Original PO 2,000 mg Q4H PRN Administration Phosphorus Less Than 2.5 mg/dL Senna/Docusate Sodium 1 tab 08/02/18 09:00 08/07/18 09:17 Lisa-Colace PO Not Given BID KATHERINE Sodium Chloride 2 ml 08/02/18 09:00 08/07/18 09:17 Ns Flush IV.FLUSH 2 ml BID KATHERINE Administration Sodium Chloride 2 ml 08/02/18 04:18 08/06/18 09:37 Ns Flush IV.FLUSH 2 ml PRN PRN Administration FLUSH AFTER USING IV ACCESS Tamsulosin HCl 0.4 mg 08/02/18 09:00 08/07/18 09:16 Flomax PO 0.4 mg DAILY KATHERINE Administration Objective Remarks: GENERAL: Elderly male patient resting in bed in no acute distress. SKIN: Pale, warm and dry. Ecchymosis to left inner arm and bilateral hands. HEAD: Normocephalic. EYES: No scleral icterus. No injection or drainage. NECK: Supple, trachea midline. CARDIOVASCULAR: Regular rate and rhythm without murmurs. RESPIRATORY: Breath sounds clear, equal bilaterally. Nonlabored at rest. GASTROINTESTINAL: Abdomen soft, non-tender, nondistended. EXTREMITIES: No cyanosis, or edema. MUSCULOSKELETAL: Decreased muscle tone. NEUROLOGICAL: Awake and alert. Normal speech. Easily recalls names of caregivers. Assessment/Plan - Plan Mr. Butterfield is a pleasant 83-year-old male patient who is currently hospitalized for a GI bleed. Hematology was consulted for severe thrombocytopenia. 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 Plan: 1. Acute ITP. Continue IV steroids, status post immunoglobulin on 08/04/2018. Platelet count stable in the mid 20s. 2. Repeat hemoglobin in the afternoon today showed he had increased to 8.0. 3. Daily CBC. - Attending Statement Appreciate Dr. Garcia's coverage over the weekend. Mr. Butterfield has not had an excellent response to steroids and IV Ig so far. Will need another tx with IVIg and will consider Rhogam as it is less expensive. Will d/w pharmacy.
[2018-08-08] MEDS: Insulin NovoLOG Aspart Correctional Sugar Inj SQ SCH ×6 (00:52→21:04)
[2018-08-08] MEDS: Pantoprazole Inj 40 MG Vial IV.PUSH SCH ×2 (04:27→16:30)
[2018-08-08 06:06] LABS: Hematocrit 23.7 % (39.0-51.0); Hemoglobin 7.8 gm/dL (13.0-17.0); Lymph # (Auto) 0.7 th/mm3 (1.0-4.8); Lymph % (Auto) 10.7 % (9.0-44.0); Mean Corpuscular Hemoglobin 28.7 pg (27.0-34.0); Mean Corpuscular Volume 86.8 fL (80.0-100.0); Mean Platelet Volume 9.7 fL (7.0-11.0); Mono # (Auto) 0.5 th/mm3 (0.0-0.9); Mono % (Auto) 8.5 % (0.0-8.0); Neut # (Auto) 4.9 th/mm3 (1.8-7.7); Neut % (Auto) 80.8 % (16.0-70.0); Red Blood Count 2.73 mil/mm3 (4.50-5.90); Red Cell Distribution Width 17.7 % (11.6-17.2); White Blood Count 6.1 th/mm3 (4.0-11.0)
[2018-08-08 06:25] LABS: Platelet Count 14 th/mm3 (150-450)
[2018-08-08 06:39] LABS: Alanine Aminotransferase 46 U/L (12-78); Albumin 2.6 g/dL (3.4-5.0); Alkaline Phosphatase 51 U/L (45-117); Anion Gap 9 meq/L (5-15); Aspartate Aminotransferase 45 U/L (15-37); Blood Urea Nitrogen 28 mg/dL (7-18); Calcium 8.1 mg/dL (8.5-10.1); Carbon Dioxide 26.4 meq/L (21.0-32.0); Chloride 105 meq/L (98-107); Glomerular Filtration Rate 71 mL/min (>89); Glucose,Random 192 mg/dL (74-106); Magnesium 1.9 mg/dL (1.5-2.5); Potassium 4.2 meq/L (3.5-5.1); Sodium 140 meq/L (136-145); Total Protein 6.4 g/dL (6.4-8.2)
[2018-08-08 08:31] LABS: Ovalocytes 1+; Platelet Estimate Rare (Normal)
[2018-08-08] MEDS: SODIUM CHLOR 0.9% IV.SIG SCH (08:48)
[2018-08-08] MEDS: Lisinopril 5 MG Tablet PO SCH (08:48)
[2018-08-08] MEDS: Insulin Detemir Inj 1,000 UNIT/10 ML Vial SQ SCH ×2 (08:48→21:04)
[2018-08-08] MEDS: METHYLPREDNISOLONE SOD SUC IV.SIG SCH (08:48)
[2018-08-08] MEDS: Senna/Docusate Sodium 8.6/50 MG Tablet PO SCH ×2 (08:48→21:04)
[2018-08-08] MEDS: Hydrocortisone Acetate 25 MG Supp RECTAL SCH ×2 (08:50→21:03)
--- NOTE | 2018-08-08 09:06 | P.PNCC ---
Subjective Subjective Remarks/Hospital Course: 83-year-old very pleasant gentleman with history of prostate cancer on hormonal therapy with the last course received in end of May, presents with generalized weakness and gross blood on rectal exam with very loose watery blood. Patient initially was hypotensive prior to arrival with the blood pressure 80/50, after liter of fluid prior to arrival by EVAC the patient's blood pressure now 120/59. Laboratory abnormalities notable for a platelet count of 7000, hemoglobin of 7.1. These are critical levels and a 6 pack of platelets as well as 2 PRBCs now and 2 in reserve been ordered by ED attending, as well as Protonix drip, and octreotide. The patient does have a history of prostate cancer, he has been on Firmagon from his urology/oncologist. 08/03 Patient is lying in bed in NAD. s/p 2u PLT and 2u PRBC yesterday PLT 5 this morning. 08/04 No events overnight. s/p transfusion 1u PLT and 1 u PRBC yesterday PLT count 14 last night from 5. 08/05 Patient s/p transfusion 2u PRBC and 1u PLT since yesterday. Afebrile. PLT count 16 last night. 08/06 Patient seems confused and agitated this morning however he is awake and oriented to time and place. Afebrile. 08/07 Patient is lying in bed in NAD. PLT 28 this morning. SUBJECTIVE 08/08: Resting in bed and somewhat confused and depressed that his platelets continue to drop. Plates were 14 this morning. He will remain stable. Tolerating diet. Objective Vital Signs / I&O: Vital Signs 08/07/18 09:00 08/07/18 09:01 08/07/18 10:00 Temperature Pulse Rate 70 67 78 Respiratory Rate Blood Pressure 136/63 138/61 Pulse Oximetry 98 97 94 L 08/07/18 11:00 08/07/18 11:06 08/07/18 12:00 Temperature 98.1 F Pulse Rate 67 71 64 Respiratory Rate Blood Pressure 171/72 H Pulse Oximetry 96 94 L 99 08/07/18 13:00 08/07/18 13:02 08/07/18 14:00 Temperature Pulse Rate 77 74 75 Respiratory Rate Blood Pressure 167/68 H Pulse Oximetry 97 94 L 08/07/18 14:01 08/07/18 14:43 08/07/18 15:00 Temperature Pulse Rate 70 69 75 Respiratory Rate 16 Blood Pressure 166/72 H 183/74 H Pulse Oximetry 97 08/07/18 15:29 08/07/18 16:00 08/07/18 16:04 Temperature 98.6 F Pulse Rate 78 71 73 Respiratory Rate 23 Blood Pressure 136/63 Pulse Oximetry 97 96 98 08/07/18 17:00 08/07/18 17:30 08/07/18 19:00 Temperature Pulse Rate 70 72 Respiratory Rate 18 Blood Pressure 137/63 Pulse Oximetry 98 98 08/07/18 20:00 08/07/18 21:12 08/07/18 22:00 Temperature 98.7 F Pulse Rate 71 73 71 Respiratory Rate 18 20 Blood Pressure 142/63 H Pulse Oximetry 95 08/08/18 00:00 08/08/18 02:00 08/08/18 04:00 Temperature 98.4 F 98.7 F Pulse Rate 71 65 57 L Respiratory Rate 16 17 Blood Pressure 114/56 L 111/54 L Pulse Oximetry 97 93 L 08/08/18 06:00 08/08/18 07:15 08/08/18 08:56 Temperature Pulse Rate 79 76 Respiratory Rate 16 Blood Pressure Pulse Oximetry 99 Intake & Output 08/07/18 08/08/18 08/08/18 18:59 06:59 18:59 Intake Total 840 / 840 Output Total 800 / 800 1200 / 1200 Balance 40 / 40 -1200 / -1200 Weight 84.5 kg Intake: IV 360 / 360 SoluMEDROL Inj 250 MG In NS Inj 100 / 100 96 ML @ 200 mls/hr IV.SIG DAILY MERON Rx#:[id number] Potassium Phosphate Inj 30 MMOL 260 / 260 In NS Inj 250 ML @ 42 mls/hr IV.SIG UNSCH PRN Rx#:[id number] Oral 480 / 480 Output: Urine 800 / 800 1200 / 1200 Other: Date of Last Bowel Movement 08/07/18 08/07/18 # Bowel Movements 2 0 Result Diagrams: 08/08/18 04:34 08/08/18 04:34 Imaging: Abdomen/Pelvis CT 08/02/18 04:01 CONCLUSION: 1. 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 2. Nonacute findings include severe atherosclerotic disease, cholelithiasis, stable complex cystic lesion of the left kidney measuring 6.5 cm, and cirrhotic liver. Head CT 08/02/18 04:01 CONCLUSION: No acute intracranial abnormality is identified. . Chest X-Ray 08/05/18 08:08 CONCLUSION: Radiographic findings consistent with congestive heart failure and pulmonary edema. These findings are new as compared to the CT of August 02, 2018 Chest X-Ray 08/07/18 08:39 CONCLUSION: 1. Cardiomegaly with mild positive fluid balance. 2. Minimal bibasilar airspace disease, presumably atelectasis. Objective Remarks: GENERAL: Patient is 83 yo lying in bed in NAD SKIN: Warm and dry. HEAD: Normocephalic. EYES: No scleral icterus. No injection or drainage. NECK: Supple, trachea midline. No JVD or lymphadenopathy. CARDIOVASCULAR: IRR. S1, S2 no S4. Without murmurs, gallops, or rubs. RESPIRATORY: Breath sounds equal bilaterally. No accessory muscle use. GASTROINTESTINAL: Abdomen soft, non-tender, nondistended. MUSCULOSKELETAL: No cyanosis, or edema. Neuro: Awake and alert Assessment and Plan - Assessment and Plan Plan: Severe thrombocytopenia - ITP Acute normocytic anemia ? GI bleed Hyperglycemia Hx DM Hx Prostate ca s/p radiation tx. Proctitis per CT abd. Acute systolic heart failure Atrial flutter Elevated AST Plan Neuro: Awake, alert. Monitor neuro status and avoid sedatives. CT brain: No acute findings Pulm: Continue with Oxygen keep sats >92% Albuterol/ipratropium aerosols every 6 hours with albuterol aerosols every 2 hours as needed dyspnea CV: Monitor HR and BP keep MAP>65mmHg Echo showed severe LV dysfunction with EF 30-35% Continue Lisinopril 2.5mg daily and carvedilol 3.125mg BID. Not a candidate for ASA due to severe thrombocytopenia Cards is following-Dr. Nation : Monitor renal function, I/O's, electrolytes replacement per protocol. Continue tamsulosin 0.4 mg daily GI: On PO cardiac diet. IV pantoprazole 40mg BID GI is following. On Hydrocortisone supp BID. Possible colonoscopy in future when stable ID: Monitor for signs of infections ( fever, WBC) Panculture if spikes a fever Heme: Monitor CBC, coags, s/p transfusion 5u PRBC and 4 u PLT since admission Hematology is following- on methylprednisolone succinate 250mg IV Q24, s/p IgG for ITP completed 08/04. Endo: On high SSI for glycemic control, insulin detemir 18u BID DVT GI prophylaxis -Teds SCDs -No pharmacological DVT prophylaxis due to severe thrombocytopenia and GI bleed -Pantoprazole IV twice daily Level 3
[2018-08-08] MEDS ORDERED: Rho Immune Globulin Inj 1,500 UNIT/1.3 ML Vial IV.SIG ONE (10:00)
[2018-08-08] MEDS: Mag Sulf 1 gm/100 ml Premix 100 ML IV.SIG SCH ×2 (10:24→11:47)
--- NOTE | 2018-08-08 11:39 | P.PNGI ---
Subjective Interval history: Up in the chair eating his breakfast continues in the intensive care setting but appears to be mildly anxious over hospital stay Denies any abdominal pain and no obvious bleeding Physical Exam Vital signs: Vital Signs 08/07/18 12:00 08/07/18 13:00 08/07/18 13:02 Temperature 98.1 F Pulse Rate 64 77 74 Respiratory Rate Blood Pressure 167/68 H Pulse Oximetry 99 97 94 L 08/07/18 14:00 08/07/18 14:01 08/07/18 14:43 Temperature Pulse Rate 75 70 69 Respiratory Rate 16 Blood Pressure 166/72 H Pulse Oximetry 08/07/18 15:00 08/07/18 15:29 08/07/18 16:00 Temperature 98.6 F Pulse Rate 75 78 71 Respiratory Rate 23 Blood Pressure 183/74 H Pulse Oximetry 97 97 96 08/07/18 16:04 08/07/18 17:00 08/07/18 17:30 Temperature Pulse Rate 73 70 72 Respiratory Rate 18 Blood Pressure 136/63 137/63 Pulse Oximetry 98 98 08/07/18 19:00 08/07/18 20:00 08/07/18 21:12 Temperature 98.7 F Pulse Rate 71 73 Respiratory Rate 18 20 Blood Pressure 142/63 H Pulse Oximetry 98 95 08/07/18 22:00 08/08/18 00:00 08/08/18 02:00 Temperature 98.4 F Pulse Rate 71 71 65 Respiratory Rate 16 Blood Pressure 114/56 L Pulse Oximetry 97 08/08/18 04:00 08/08/18 06:00 08/08/18 07:00 Temperature 98.7 F Pulse Rate 57 L 79 68 Respiratory Rate 17 24 Blood Pressure 111/54 L 118/79 Pulse Oximetry 93 L 97 08/08/18 07:15 08/08/18 08:00 08/08/18 08:32 Temperature 97.9 F Pulse Rate 68 75 Respiratory Rate 17 Blood Pressure 164/72 H Pulse Oximetry 99 96 98 08/08/18 08:56 08/08/18 09:00 08/08/18 09:01 Temperature Pulse Rate 76 69 72 Respiratory Rate 16 24 21 Blood Pressure 151/65 H Pulse Oximetry 100 100 08/08/18 10:00 Temperature Pulse Rate 84 Respiratory Rate Blood Pressure Pulse Oximetry 95 Intake & Output 08/07/18 08/08/18 08/08/18 18:59 06:59 18:59 Intake Total 840 / 840 Output Total 800 / 800 1200 / 1200 Balance 40 / 40 -1200 / -1200 Weight 84.5 kg Intake: IV 360 / 360 SoluMEDROL Inj 250 MG In NS Inj 100 / 100 96 ML @ 200 mls/hr IV.SIG DAILY MERON Rx#:[id number] Potassium Phosphate Inj 30 MMOL 260 / 260 In NS Inj 250 ML @ 42 mls/hr IV.SIG UNSCH PRN Rx#:[id number] Oral 480 / 480 Output: Urine 800 / 800 1200 / 1200 Other: Date of Last Bowel Movement 08/07/18 08/07/18 # Bowel Movements 2 0 - Constitutional mild distress, obese, cachectic, agitated - Routine HEENT Exam Head: Present: normocephalic (Mild) ENT: Present: mucous membranes moist - Routine Neck Exam Present: supple - Routine Respiratory Exam Present: accessory muscle use (No obvious shortness of breath at rest no obvious rhonchi or wheezing) - Routine Cardiovascular Exam Present: S1, S2 - Routine Abdominal Exam Present: normoactive bowel sounds (Soft, taut, but denies any abdominal pain,) Results - Labs CBC & Chem 7: 08/08/18 04:34 08/08/18 04:34 Laboratory Results - last 24 hr 08/07/18 08/07/18 08/07/18 12:33 12:55 17:06 WBC 7.6 RBC 2.76 L Hgb 8.0 L Hct 24.1 L MCV 87.3 MCH 29.0 MCHC 33.2 RDW 17.9 H Plt Count 26 L MPV 10.4 Prelim Diff (Auto) Slide review pending Neut % (Auto) 87.4 H Lymph % (Auto) 5.9 L [place] % (Auto) 6.4 Eos % (Auto) 0.1 Baso % (Auto) 0.2 Neut # (Auto) 6.7 Lymph # (Auto) 0.5 L [place] # (Auto) 0.5 Eos # (Auto) 0.0 Baso # (Auto) 0.0 WBC Differential . Diff Scan Auto diff confirmed Differential Comment . Platelet Estimate Low L Platelet Morphology Normal Ovalocytes 1+ H Sodium Potassium Chloride Carbon Dioxide Anion Gap BUN Creatinine Estimated GFR POC Glucose 282 H 336 H Random Glucose Calcium Phosphorus Magnesium Total Bilirubin AST ALT Alkaline Phosphatase Total Protein Albumin 08/07/18 08/07/18 08/08/18 19:30 20:45 04:26 WBC RBC Hgb Hct MCV MCH MCHC RDW Plt Count MPV Prelim Diff (Auto) Neut % (Auto) Lymph % (Auto) [place] % (Auto) Eos % (Auto) Baso % (Auto) Neut # (Auto) Lymph # (Auto) [place] # (Auto) Eos # (Auto) Baso # (Auto) WBC Differential Diff Scan Differential Comment Platelet Estimate Platelet Morphology Ovalocytes Sodium Potassium 3.4 L Chloride Carbon Dioxide Anion Gap BUN Creatinine Estimated GFR POC Glucose 297 H 216 H Random Glucose Calcium Phosphorus Magnesium Total Bilirubin AST ALT Alkaline Phosphatase Total Protein Albumin 08/08/18 08/08/18 08/08/18 04:34 04:34 08:46 WBC 6.1 RBC 2.73 L Hgb 7.8 L Hct 23.7 L MCV 86.8 MCH 28.7 MCHC 33.0 RDW 17.7 H Plt Count 14 L* D MPV 9.7 Prelim Diff (Auto) Slide review pending Neut % (Auto) 80.8 H Lymph % (Auto) 10.7 [place] % (Auto) 8.5 H Eos % (Auto) 0.0 Baso % (Auto) 0.0 Neut # (Auto) 4.9 Lymph # (Auto) 0.7 L [place] # (Auto) 0.5 Eos # (Auto) 0.0 Baso # (Auto) 0.0 WBC Differential . Diff Scan Auto diff confirmed Differential Comment . Platelet Estimate Rare L Platelet Morphology Enlarged H Ovalocytes 1+ H Sodium 140 Potassium 4.2 D Chloride 105 Carbon Dioxide 26.4 Anion Gap 9 BUN 28 H Creatinine 1.01 Estimated GFR 71 L POC Glucose 151 H Random Glucose 192 H Calcium 8.1 L Phosphorus 3.0 Magnesium 1.9 Total Bilirubin 0.7 AST 45 H ALT 46 Alkaline Phosphatase 51 Total Protein 6.4 Albumin 2.6 L Assessment and Plan - Plan Bright red blood per rectum No more bleeding since yesterday afternoon. hgb today 8.1. Received 5 units of blood Has never had an EGD or colonoscopy. Denies taking any blood thinners. 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 Prostate cancer status post 45 treatments of radiation completed in July 2017 and patient reports once a month injections that he finished in April of this year. Thrombocytopeniaplatelet count currently 16. Patient does have history of thrombocytopenia but has never been this low according to previous chart review. States that he has not seen a schedule clerk or oncologist in the past. Oncology on the case, plt today is 16 s/p 4 units of plt IV steroids, status post immunoglobulin on 08/04/2018. ? Ritxuan/Cytoxan 08/07/2018 patient continues in the intensive care setting, maroon stool x1, no further bleeding today. Hemoglobin appears stable at 8. Patient talkative and appears slightly anxious and overwhelmed by his current condition. States he never had any heart problems before. Currently has no nausea no vomiting no abdominal pain and no abdominal cramping. Discussed with patient possible colonoscopy when he is more stable and feeling better, platelet count 28, mild gradual trend up. Status post prostate cancer with radiation, which could contribute to patient's thrombocytopenia. Will continue HC suppositories for now to assist with any proctitis. Explained to patient 08/08/2018 patient is sitting up in a chair and appears more alert today. Denies any abdominal pain but questionable constipation. Patient notes small bowel movement yesterday and is sometimes incontinent in the bed with stool but minimal amount. Discussed with patient the need for bowel regimen and no straining at this time since he had bright red rectal bleeding initially. Patient's platelet count has declined again today to 14, hemoglobin is 7.8 from last check of 8. Albumin 2.6, bilirubin and LFTs unremarkable for now. No further rectal bleeding at this time. Plan Diet , cardiac diet, encouraged hydration with patient PPI Zofran Steroids, suppositories with HC MiraLAX Monitor for any further acute rectal bleeding, plan colonoscopy when patient is stable and platelet count is stabilized around 50 Monitor labs with special attention hemoglobin and transfuse as needed. Supportive care Patient was seen per myself and Dr. Ambrocio, note was written on her behalf
[2018-08-08] MEDS: Polyethylene Glycol 3350 17 GM Packet PO SCH (11:47)
[2018-08-08] MEDS ORDERED: IVIG IMMUNE GLOBULIN IV.SIG ONE (13:00)
--- NOTE | 2018-08-08 15:04 | P.PNONC ---
Subjective Interval history: Patient sitting up in chair. He is agitated that he is still in the ICU. He states he feels like he needs to be able to get up and move around. He reports frustration with multiple lab draws and not being able to sleep due to continued hospital interruptions. Objective Vital Signs/Intake & Output: Vital Signs 08/07/18 15:00 08/07/18 15:29 08/07/18 16:00 Temperature 98.6 F Pulse Rate 75 78 71 Respiratory Rate 23 Blood Pressure 183/74 H Pulse Oximetry 97 97 96 08/07/18 16:04 08/07/18 17:00 08/07/18 17:30 Temperature Pulse Rate 73 70 72 Respiratory Rate 18 Blood Pressure 136/63 137/63 Pulse Oximetry 98 98 08/07/18 19:00 08/07/18 20:00 08/07/18 21:12 Temperature 98.7 F Pulse Rate 71 73 Respiratory Rate 18 20 Blood Pressure 142/63 H Pulse Oximetry 98 95 08/07/18 22:00 08/08/18 00:00 08/08/18 02:00 Temperature 98.4 F Pulse Rate 71 71 65 Respiratory Rate 16 Blood Pressure 114/56 L Pulse Oximetry 97 08/08/18 04:00 08/08/18 06:00 08/08/18 07:00 Temperature 98.7 F Pulse Rate 57 L 79 68 Respiratory Rate 17 24 Blood Pressure 111/54 L 118/79 Pulse Oximetry 93 L 97 08/08/18 07:15 08/08/18 08:00 08/08/18 08:32 Temperature 97.9 F Pulse Rate 68 75 Respiratory Rate 17 Blood Pressure 164/72 H Pulse Oximetry 99 96 98 08/08/18 08:56 08/08/18 09:00 08/08/18 09:01 Temperature Pulse Rate 76 69 72 Respiratory Rate 16 24 21 Blood Pressure 151/65 H Pulse Oximetry 100 100 08/08/18 10:00 08/08/18 11:00 08/08/18 11:59 Temperature Pulse Rate 83 68 Respiratory Rate 19 17 Blood Pressure Pulse Oximetry 95 97 08/08/18 12:00 08/08/18 13:00 08/08/18 13:31 Temperature Pulse Rate 74 91 H 91 H Respiratory Rate 20 17 Blood Pressure 121/63 Pulse Oximetry 97 97 08/08/18 13:32 08/08/18 13:45 Temperature 97.7 F 97.6 F Pulse Rate 92 H 90 Respiratory Rate 23 Blood Pressure 121/63 112/58 L Pulse Oximetry 98 96 Intake & Output 08/07/18 08/08/18 08/08/18 18:59 06:59 18:59 Intake Total 840 / 840 100 / 100 Output Total 800 / 800 1200 / 1200 Balance 40 / 40 -1200 / -1200 100 / 100 Weight 84.5 kg Intake: IV 360 / 360 100 / 100 Magnesium Sulfate 1 gm/D5W 100 100 / 100 ml Premix 100 ML @ 100 mls/hr IV.SIG Q1H KATHERINE Rx#:[id number] SoluMEDROL Inj 250 MG In NS Inj 100 / 100 96 ML @ 200 mls/hr IV.SIG DAILY KATHERINE Rx#:[id number] Potassium Phosphate Inj 30 MMOL 260 / 260 In NS Inj 250 ML @ 42 mls/hr IV.SIG UNSCH PRN Rx#:[id number] Oral 480 / 480 Output: Urine 800 / 800 1200 / 1200 Other: Date of Last Bowel Movement 08/07/18 08/07/18 # Bowel Movements 2 0 Result Diagrams: 08/09/18 05:23 08/09/18 05:23 Laboratory Results: Laboratory Results - last 24 hr 08/07/18 08/07/18 08/07/18 17:06 19:30 20:45 WBC RBC Hgb Hct MCV MCH MCHC RDW Plt Count MPV Prelim Diff (Auto) Neut % (Auto) Lymph % (Auto) [place] % (Auto) Eos % (Auto) Baso % (Auto) Neut # (Auto) Lymph # (Auto) [place] # (Auto) Eos # (Auto) Baso # (Auto) WBC Differential Diff Scan Differential Comment Platelet Estimate Platelet Morphology Ovalocytes Sodium Potassium 3.4 L Chloride Carbon Dioxide Anion Gap BUN Creatinine Estimated GFR POC Glucose 336 H 297 H Random Glucose Calcium Phosphorus Magnesium Total Bilirubin AST ALT Alkaline Phosphatase Total Protein Albumin 08/08/18 08/08/18 08/08/18 04:26 04:34 04:34 WBC 6.1 RBC 2.73 L Hgb 7.8 L Hct 23.7 L MCV 86.8 MCH 28.7 MCHC 33.0 RDW 17.7 H Plt Count 14 L* D MPV 9.7 Prelim Diff (Auto) Slide review pending Neut % (Auto) 80.8 H Lymph % (Auto) 10.7 [place] % (Auto) 8.5 H Eos % (Auto) 0.0 Baso % (Auto) 0.0 Neut # (Auto) 4.9 Lymph # (Auto) 0.7 L [place] # (Auto) 0.5 Eos # (Auto) 0.0 Baso # (Auto) 0.0 WBC Differential . Diff Scan Auto diff confirmed Differential Comment . Platelet Estimate Rare L Platelet Morphology Enlarged H Ovalocytes 1+ H Sodium 140 Potassium 4.2 D Chloride 105 Carbon Dioxide 26.4 Anion Gap 9 BUN 28 H Creatinine 1.01 Estimated GFR 71 L POC Glucose 216 H Random Glucose 192 H Calcium 8.1 L Phosphorus 3.0 Magnesium 1.9 Total Bilirubin 0.7 AST 45 H ALT 46 Alkaline Phosphatase 51 Total Protein 6.4 Albumin 2.6 L 08/08/18 08/08/18 08:46 11:52 WBC RBC Hgb Hct MCV MCH MCHC RDW Plt Count MPV Prelim Diff (Auto) Neut % (Auto) Lymph % (Auto) [place] % (Auto) Eos % (Auto) Baso % (Auto) Neut # (Auto) Lymph # (Auto) [place] # (Auto) Eos # (Auto) Baso # (Auto) WBC Differential Diff Scan Differential Comment Platelet Estimate Platelet Morphology Ovalocytes Sodium Potassium Chloride Carbon Dioxide Anion Gap BUN Creatinine Estimated GFR POC Glucose 151 H 333 H Random Glucose Calcium Phosphorus Magnesium Total Bilirubin AST ALT Alkaline Phosphatase Total Protein Albumin Medications: Active Medications Generic Name Dose Route Start Last Admin Trade Name Freq PRN Reason Stop Dose Admin Acetaminophen 650 mg 08/02/18 04:18 08/03/18 13:32 Tylenol PO 650 mg Q6H PRN Administration PAIN 1-10 AND/OR FEVER >101F Albuterol 1 ampul 08/05/18 10:00 08/08/18 08:55 Duoneb Neb (Katherine) NEB 1 ampul Q6HR NEB KATHERINE Administration Carvedilol 3.125 mg 08/05/18 09:00 08/08/18 08:48 Coreg PO 3.125 mg BID KATHERINE Administration Diphenhydramine HCl 25 mg 08/03/18 13:11 08/03/18 13:32 Benadryl PO 25 mg Q4H PRN Administration SEE LABEL COMMENTS Hydrocortisone Acetate 100 mg 08/02/18 21:00 08/07/18 20:47 Cortenema RECTAL 100 mg HS KATHERINE Administration Hydrocortisone Acetate 25 mg 08/02/18 21:00 08/08/18 08:50 Hemorrhoidal Hc Supp RECTAL 25 mg BID KATHERINE Administration Potassium Chloride 20 meq in 100 mls @ 50 mls/hr 08/05/18 08:03 08/05/18 17: 14 Kcl 20 Meq Premix Inj IV.SIG Infused Q2H PRN Infusion For Potassium 2.8 - 3.2 mEq/L Potassium Phosphate 30 mmol/ 260 mls @ 42 mls/hr 08/05/18 08:03 08/07/18 11: 42 Sodium Chloride IV.SIG Infused UNSCH PRN Infusion SEE LABEL COMMENTS Methylprednisolone Sodium 100 mls @ 200 mls/hr 08/07/18 09:00 08/08/18 08:48 Succinate 250 mg/ Sodium IV.SIG 200 mls/hr Chloride DAILY KATHERINE Administration Insulin Aspart 0 unit 08/08/18 12:00 08/08/18 13:16 Novolog Insulin Correctional Sugar Inj SQ 20 unit ACHS KATHERINE Administration Protocol Lisinopril 2.5 mg 08/05/18 09:00 08/08/18 08:48 Prinivil PO 2.5 mg DAILY KATHERINE Administration Pantoprazole Sodium 40 mg 08/02/18 05:00 08/08/18 04:27 Protonix Inj IV.PUSH 40 mg Q12H KATHERINE Administration Polyethylene Glycol 17 gm 08/08/18 11:45 08/08/18 11:47 Miralax PO Not Given DAILY KATHERINE Potassium Bicarb/Potassium Chloride 50 meq 08/05/18 08:43 08/07/18 22:30 K-Lyte Cl Eff PO 50 meq UNSCH PRN Administration For Potassium 3.3 - 3.5 mEq/L Potassium Phosphate 2,000 mg 08/05/18 08:03 08/06/18 15:48 K-Phos Original PO 2,000 mg Q4H PRN Administration Phosphorus Less Than 2.5 mg/dL Senna/Docusate Sodium 1 tab 08/02/18 09:00 08/08/18 08:48 Lisa-Colace PO 1 tab BID KATHERINE Administration Sodium Chloride 2 ml 08/02/18 09:00 08/08/18 08:48 Ns Flush IV.FLUSH 2 ml BID KATHERINE Administration Sodium Chloride 2 ml 08/02/18 04:08/06/18 09:37 Ns Flush IV.FLUSH 2 ml PRN PRN Administration FLUSH AFTER USING IV ACCESS Tamsulosin HCl 0.4 mg 08/02/18 09:00 08/08/18 08:48 Flomax PO 0.4 mg DAILY KATHERINE Administration Objective Remarks: GENERAL: Ill-appearing elderly male patient, in no acute distress. +agitated. SKIN: Pale, warm and dry. Bruises to bilateral arms. HEAD: Normocephalic. EYES: No scleral icterus. No injection or drainage. MOUTH: Small white patches to tongue and soft palate. Dentures in place. NECK: Supple, trachea midline. CARDIOVASCULAR: Regular rate and rhythm without murmurs. RESPIRATORY: Breath sounds clear, equal bilaterally. Nonlabored at rest. GASTROINTESTINAL: Abdomen bijal, distended, non-tender. EXTREMITIES: No cyanosis, or edema. MUSCULOSKELETAL: Decreased muscle tone. NEUROLOGICAL: No obvious focal deficit. Awake, alert, oriented x's 3. PSYCHIATRIC: Agitated. Assessment/Plan - Plan Mr. Butterfield is a pleasant 83-year-old male patient who is currently hospitalized for a GI bleed. Hematology was consulted for severe thrombocytopenia. 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 Plan: 1. Acute ITP. Continue IV steroids, status post immunoglobulin on 08/04/2018. Platelet count 14,000 today. Patient will receive an additional dose of IVIG. 2. GI bleed, management per gastroenterology. Hemoglobin trended down to 7.8 today. 3. Thrush, will start Magic mouthwash. 4. Repeat CBC in the a.m. - Attending Statement Pt stable; seen in room. No active bleeding. D/w pharmacy - [facility] not on formulary hence ordered another dose of IV IG. If no response, will start Nplate.
[2018-08-08 17:30] LABS: Bilirubin,Urine Negative (Negative); Clarity,Urine Hazy (Clear); Color,Urine Yellow (Yellw/Straw); Glucose,Urine (UA) 500 or Greater mg/dL (Negative); Leukocyte Esterase,Urine Negative (Negative); Nitrite,Urine Negative (Negative); Specific Gravity,Urine 1.018 (1.002-1.035)
[2018-08-08] MEDS: Nystatin/Diphenhydramine/Lidocaine Mouthwash (Adult) 120 ML Botttle SWISH-SWAL SCH ×2 (18:46→21:03)
--- NOTE | 2018-08-09 00:08 | P.PNCA ---
Subjective Interval history: No events overnight Diuresing well, no SOB Medications and Allergies Active Medications: Active Medications Acetaminophen (Tylenol) 650 mg PO Q6H PRN PRN Reason: PAIN 1-10 AND/OR FEVER >101F Last Admin: 08/03/18 13:32 Dose: 650 mg Acetaminophen (Tylenol) 650 mg PO Q4H PRN PRN Reason: SEE LABEL COMMENTS Al Hydroxide/Mg Hydroxide (Milk Of Magnalbert Liq) 30 ml PO Q12H PRN PRN Reason: Mild Constipation Albuterol (Duoneb Neb (Meron)) 1 ampul NEB Q6HR NEB MERON Last Admin: 08/08/18 21:07 Dose: 1 ampul Albuterol (Albuterol Neb (Prn)) 2.5 mg NEB Q2HR NEB PRN PRN Reason: DYSPNEA Bisacodyl (Dulcolax Supp) 10 mg RECTAL DAILY PRN PRN Reason: SEVERE CONSITIPATION Carvedilol (Coreg) 3.125 mg PO BID [facility] Last Admin: 08/08/18 21:02 Dose: 3.125 mg Dextrose (D50w Vial) 50 ml IV.PUSH UNSCH PRN PRN Reason: PER HYPOGLYCEMIA PROTOCOL Dextrose (D50w Vial) 50 ml IV.PUSH UNSCH PRN PRN Reason: PER HYPOGLYCEMIA PROTOCOL Diphenhydramine HCl (Benadryl) 25 mg PO Q4H PRN PRN Reason: SEE LABEL COMMENTS Last Admin: 08/03/18 13:32 Dose: 25 mg Glucagon (Glucagon Inj) 1 mg OTHER PRN PRN PRN Reason: for Hypoglycemia Protocol Glucagon (Glucagon Inj) 1 mg OTHER PRN PRN PRN Reason: for Hypoglycemia Protocol Hydrocortisone Acetate (Cortenema) 100 mg RECTAL HS [facility] Last Admin: 08/08/18 21:03 Dose: 100 mg Hydrocortisone Acetate (Hemorrhoidal Hc Supp) 25 mg RECTAL BID [facility] Last Admin: 08/08/18 21:03 Dose: 25 mg Magnesium Sulfate 4 gm/ Sodium (Chloride) 100 mls @ 50 mls/hr IV.SIG UNSCH PRN PRN Reason: For Magnesium 0.9 - 1.1 mg/dL Magnesium Sulfate 2 gm/ Sodium (Chloride) 100 mls @ 50 mls/hr IV.SIG UNSCH PRN PRN Reason: For Magnesium 1.2 - 1.6 mg/dL Potassium Chloride (Kcl 40 Meq Premix Inj) 40 meq in 100 mls @ 25 mls/hr IV.SIG Q2H PRN PRN Reason: For Potassium 2.8 - 3.2 mEq/L Potassium Chloride (Kcl 20 Meq Premix Inj) 20 meq in 100 mls @ 50 mls/hr IV.SIG Q2H PRN PRN Reason: For Potassium 3.3 - 3.5 mEq/L Potassium Chloride (Kcl 40 Meq Premix Inj) 40 meq in 100 mls @ 25 mls/hr IV.SIG UNSCH PRN PRN Reason: For Potassium 3.3 - 3.5 mEq/L Potassium Chloride (Kcl 20 Meq Premix Inj) 20 meq in 100 mls @ 50 mls/hr IV.SIG Q2H PRN PRN Reason: For Potassium 2.8 - 3.2 mEq/L Last Infusion: 08/05/18 17:14 Dose: Infused Potassium Phosphate 30 mmol/ (Sodium Chloride) 260 mls @ 42 mls/hr IV.SIG UNSCH PRN PRN Reason: SEE LABEL COMMENTS Last Infusion: 08/07/18 11:42 Dose: Infused Sodium Phosphate 30 mmol/ (Sodium Chloride) 260 mls @ 42 mls/hr IV.SIG UNSCH PRN PRN Reason: For Phosphorus < 2.5 mg/dL Methylprednisolone Sodium Succinate 250 mg/ Sodium Chloride 100 mls @ 200 mls/ hr IV.SIG DAILY MERON Last Infusion: 08/08/18 15:52 Dose: Infused Insulin Aspart (Novolog Insulin Correctional Sugar Inj) 0 unit SQ ACHS [facility]; Protocol Last Admin: 08/08/18 21:04 Dose: 20 unit Insulin Detemir (Levemir Inj) 18 unit SQ BID [facility] Last Admin: 08/08/18 21:04 Dose: 18 unit Lactulose (Lactulose Liq) 30 ml PO DAILY PRN PRN Reason: SEVERE CONSITIPATION Lisinopril (Prinivil) 2.5 mg PO DAILY [facility] Last Admin: 08/08/18 08:48 Dose: 2.5 mg Magnesium Oxide (Mag-Ox) 800 mg PO UNSCH PRN PRN Reason: For Magnesium 1.2 - 1.6 mg/dL Morphine Sulfate (Morphine Inj) 2 mg IV.PUSH Q2H PRN PRN Reason: PAIN SCALE 6 TO 10 Multi-Ingredient Mouthwash/Gargle (Magic Mouthwash Adult Liq) 10 ml SWISH-SWAL QID [facility] Last Admin: 08/08/18 21:03 Dose: Not Given Ondansetron HCl (Zofran Inj) 4 mg IV.PUSH Q6H PRN PRN Reason: NAUSEA OR VOMITING Pantoprazole Sodium (Protonix Inj) 40 mg IV.PUSH Q12H [facility] Last Admin: 08/08/18 16:30 Dose: 40 mg Polyethylene Glycol (Miralax) 17 gm PO DAILY [facility] Last Admin: 08/08/18 11:47 Dose: Not Given Potassium Bicarb/Potassium Chloride (K-Lyte Cl Eff) 50 meq PO UNSCH PRN PRN Reason: For Potassium 3.3 - 3.5 mEq/L Last Admin: 08/07/18 22:30 Dose: 50 meq Potassium Phosphate (K-Phos Original) 2,000 mg PO Q4H PRN PRN Reason: Phosphorus Less Than 2.5 mg/dL Last Admin: 08/06/18 15:48 Dose: 2,000 mg Potassium Phosphate (K-Phos Original) 2,000 mg PO UNSCH PRN PRN Reason: SEE LABEL COMMENTS Senna/Docusate Sodium (Lisa-Colace) 1 tab PO BID [facility] Last Admin: 08/08/18 21:04 Dose: 1 tab Sennosides (Senokot) 17.2 mg PO Q12H PRN PRN Reason: Moderate Constipation Sodium Chloride (Ns Flush) 2 ml IV.FLUSH BID [facility] Last Admin: 08/08/18 21:04 Dose: 2 ml Sodium Chloride (Ns Flush) 2 ml IV.FLUSH PRN PRN PRN Reason: FLUSH AFTER USING IV ACCESS Last Admin: 08/06/18 09:37 Dose: 2 ml Tamsulosin HCl (Flomax) 0.4 mg PO DAILY [facility] Last Admin: 08/08/18 08:48 Dose: 0.4 mg Allergies Allergy/AdvReac Type Severity Reaction Status Date / Time No Known Allergies Allergy Verified 08/02/18 03:15 Home Medications Medication Instructions Recorded Confirmed Type atenolol 25 mg PO DAILY 08/02/18 08/02/18 History chlorpheniramine maleate 4 mg PO Q4H 08/02/18 08/02/18 History [Chlor-Trimeton] metformin 1,000 mg PO BID 08/02/18 08/02/18 History pantoprazole [Protonix] 40 mg PO DAILY 08/02/18 08/02/18 History pioglitazone [Actos] 45 mg PO DAILY 08/02/18 08/02/18 History sitagliptin [Januvia] 100 mg PO DAILY 08/02/18 08/02/18 History tamsulosin 0.4 mg PO DAILY 08/02/18 08/02/18 History Physical Exam Vital signs: Vital Signs 08/08/18 02:00 08/08/18 04:00 08/08/18 06:00 Temperature 98.7 F Pulse Rate 65 57 L 79 Respiratory Rate 17 Blood Pressure 111/54 L Pulse Oximetry 93 L 08/08/18 07:00 08/08/18 07:15 08/08/18 08:00 Temperature 97.9 F Pulse Rate 68 68 Respiratory Rate 24 17 Blood Pressure 118/79 Pulse Oximetry 97 99 96 08/08/18 08:32 08/08/18 08:56 08/08/18 09:00 Temperature Pulse Rate 75 76 69 Respiratory Rate 16 24 Blood Pressure 164/72 H Pulse Oximetry 98 100 08/08/18 09:01 08/08/18 10:00 08/08/18 11:00 Temperature Pulse Rate 72 83 68 Respiratory Rate 21 19 Blood Pressure 151/65 H Pulse Oximetry 100 95 97 08/08/18 11:59 08/08/18 12:00 08/08/18 13:00 Temperature Pulse Rate 74 91 H Respiratory Rate 17 20 Blood Pressure Pulse Oximetry 97 97 08/08/18 13:31 08/08/18 13:32 08/08/18 13:45 Temperature 97.7 F 97.6 F Pulse Rate 91 H 92 H 90 Respiratory Rate 17 23 Blood Pressure 121/63 121/63 112/58 L Pulse Oximetry 98 96 08/08/18 14:00 08/08/18 14:15 08/08/18 14:30 Temperature Pulse Rate 84 81 85 Respiratory Rate 23 Blood Pressure 110/55 L 91/54 L Pulse Oximetry 97 97 96 08/08/18 14:41 08/08/18 15:00 08/08/18 15:01 Temperature Pulse Rate 85 94 H 90 Respiratory Rate 23 Blood Pressure 106/58 L 117/58 L Pulse Oximetry 97 97 96 08/08/18 15:33 08/08/18 16:00 08/08/18 16:59 Temperature 97.5 F L Pulse Rate 93 H 73 82 Respiratory Rate 16 Blood Pressure 108/57 L Pulse Oximetry 94 L 08/08/18 19:00 08/08/18 20:00 08/08/18 21:09 Temperature 98 F Pulse Rate 80 86 Respiratory Rate 21 19 Blood Pressure 108/64 Pulse Oximetry 96 98 99 08/08/18 22:00 Temperature Pulse Rate 73 Respiratory Rate Blood Pressure Pulse Oximetry Intake & Output 08/08/18 08/08/18 08/09/18 06:59 18:59 06:59 Intake Total 300 / 300 900 / 900 Output Total 1200 / 1200 1100 / 1100 Balance -1200 / -1200 -800 / -800 900 / 900 Weight 84.5 kg Intake: IV 300 / 300 900 / 900 Privigen Inj 90 GM In Bag/ 900 / 900 Syringe 1 EACH @ Per Protocol IV.SIG ONCE ONE Rx#:[id number] Magnesium Sulfate 1 gm/D5W 100 200 / 200 ml Premix 100 ML @ 100 mls/hr IV.SIG Q1H [facility]ON Rx#:[id number] SoluMEDROL Inj 250 MG In NS Inj 100 / 100 96 ML @ 200 mls/hr IV.SIG DAILY [facility]ON Rx#:[id number] Output: Urine 1200 / 1200 1100 / 1100 Other: Date of Last Bowel Movement 08/07/18 # Bowel Movements 0 Narrative: GENERAL: NAD, AAOx3 SKIN: Warm and dry. HEAD: Atraumatic. Normocephalic. EYES: Pupils equal and round. No scleral icterus. No injection or drainage. ENT: No nasal bleeding or discharge. Mucous membranes pink and moist. NECK: Trachea midline. No JVD. CARDIOVASCULAR: Regular rate and rhythm. RESPIRATORY: No accessory muscle use. Clear to auscultation. Breath sounds equal bilaterally. GASTROINTESTINAL: Abdomen soft, non-tender, nondistended. Hepatic and splenic margins not palpable. MUSCULOSKELETAL: Extremities without clubbing, cyanosis, or edema. No obvious deformities. NEUROLOGICAL: Awake and alert. No obvious cranial nerve deficits. Motor grossly within normal limits. Five out of 5 muscle strength in the arms and legs. Normal speech. PSYCHIATRIC: Appropriate mood and affect; insight and judgment normal. Results 08/08/18 04:34 08/08/18 04:34 Cardiac Enzymes 08/07/18 08/08/18 Range/Units 04:03 04:34 AST 46 H 45 H (15-37) U/L CBC 08/07/18 08/07/18 08/08/18 Range/Units 04:03 12:33 04:34 WBC 6.1 7.6 6.1 (4.0-11.0) th/mm3 RBC 2.56 L 2.76 L 2.73 L (4.50-5.90) mil/mm3 Hgb 7.4 L 8.0 L 7.8 L (13.0-17.0) gm/dL Hct 22.0 L 24.1 L 23.7 L (39.0-51.0) % Plt Count 28 L 26 L 14 L* D (150-450) th/mm3 Neut # (Auto) 4.9 6.7 4.9 (1.8-7.7) th/mm3 Lymph # (Auto) 0.6 L 0.5 L 0.7 L (1.0-4.8) th/mm3 [place] # (Auto) 0.5 0.5 0.5 (0.0-0.9) th/mm3 Eos # (Auto) 0.0 0.0 0.0 (0.0-0.4) th/mm3 Baso # (Auto) 0.0 0.0 0.0 (0.0-0.2) th/mm3 Comprehensive Metabolic Panel 08/07/18 08/07/18 08/08/18 Range/Units 04:03 19:30 04:34 Sodium 141 140 (136-145) meq/L Potassium 3.1 L 3.4 L 4.2 D (3.5-5.1) meq/L Chloride 105 105 (98-107) meq/L Carbon Dioxide 28.7 26.4 (21.0-32.0) meq/L BUN 33 H 28 H (7-18) mg/dL Creatinine 1.04 1.01 (0.60-1.30) mg/dL Calcium 8.4 L 8.1 L (8.5-10.1) mg/dL AST 46 H 45 H (15-37) U/L ALT 40 46 (12-78) U/L Alkaline Phosphatase 51 51 (45-117) U/L Total Protein 6.7 6.4 (6.4-8.2) g/dL Albumin 2.6 L 2.6 L (3.4-5.0) g/dL Intake and Output 08/08/18 08/08/18 08/09/18 14:59 22:59 06:59 Intake Total 100 / 100 1100 / 1100 Output Total 1100 / 1100 Balance 100 / 100 0 / 0 Intake: IV 100 / 100 1100 / 1100 Privigen Inj 90 GM In Bag/ 900 / 900 Syringe 1 EACH @ Per Protocol IV.SIG ONCE ONE Rx#:[id number] Magnesium Sulfate 1 gm/D5W 100 100 / 100 100 / 100 ml Premix 100 ML @ 100 mls/hr IV.SIG Q1H MERON Rx#:[id number] SoluMEDROL Inj 250 MG In NS Inj 100 / 100 96 ML @ 200 mls/hr IV.SIG DAILY MERON Rx#:[id number] Output: Urine 1100 / 1100 - Imaging and Cardiology Imaging: Impressions Chest X-Ray 08/07/18 08:39 CONCLUSION: 1. Cardiomegaly with mild positive fluid balance. 2. Minimal bibasilar airspace disease, presumably atelectasis. Assessment and Plan - Assessment (1) Cardiomyopathy Code(s): I42.9 - Cardiomyopathy, unspecified Status: Acute (2) Wide-complex tachycardia Code(s): I47.2 - Ventricular tachycardia Status: Acute (3) Atrial flutter Code(s): I48.92 - Unspecified atrial flutter Status: Acute (4) Hematochezia Code(s): K92.1 - Melena Status: Acute (5) Lower gastrointestinal hemorrhage Code(s): K92.2 - Gastrointestinal hemorrhage, unspecified Status: Acute (6) Anemia Code(s): D64.9 - Anemia, unspecified Status: Acute (7) Thrombocytopenia Code(s): D69.6 - Thrombocytopenia, unspecified Status: Acute (8) Acute GI bleeding Code(s): K92.2 - Gastrointestinal hemorrhage, unspecified Status: Acute - Plan 1) Cardiomyopathy Unsure of cause at this time Unable to undergo ischemic evaluation due to anemia/thrombocytopenia Con't medical management Atenolol changed to Coreg Lisinopril Will need repeat echo in 3 months while on medical management to evaluate ejection fraction Hx of prostate CA No chemotherapeutic agents that are cardiotoxic given Appears compensated May need Lasix with blood products if continually receiving Has been negative I/O 2) Wide complex tachycardia Asymptomatic Probable Aflutter with 2:1 with aberrancy Similar event on EKG from 11/2014 3) Atrial flutter Con't Coreg Not a candidate for anti-coagulation or ASA due to thrombocytopenia 4) Hx of Prostate cancer Received chemo and radiation 5) GI bleed Per GI
[2018-08-09] MEDS: Pantoprazole Inj 40 MG Vial IV.PUSH SCH ×2 (05:22→17:16)
[2018-08-09 06:10] LABS: Baso % (Auto) 0.2 % (0.0-2.0); Lymph # (Auto) 0.5 th/mm3 (1.0-4.8); Mean Corpuscular HGB Conc 33.9 % (32.0-36.0); Mean Corpuscular Hemoglobin 28.8 pg (27.0-34.0); Mean Platelet Volume 9.8 fL (7.0-11.0); Mono # (Auto) 0.4 th/mm3 (0.0-0.9); Mono % (Auto) 6.2 % (0.0-8.0); Neut % (Auto) 86.6 % (16.0-70.0); Red Blood Count 2.38 mil/mm3 (4.50-5.90); Red Cell Distribution Width 17.1 % (11.6-17.2); White Blood Count 6.9 th/mm3 (4.0-11.0)
[2018-08-09 06:28] LABS: Hemoglobin 6.9 gm/dL (13.0-17.0)
[2018-08-09 06:29] LABS: Hematocrit 20.2 % (39.0-51.0); Platelet Count 13 th/mm3 (150-450)
[2018-08-09 06:46] LABS: Alanine Aminotransferase 52 U/L (12-78); Albumin 2.1 g/dL (3.4-5.0); Anion Gap 6 meq/L (5-15); Aspartate Aminotransferase 44 U/L (15-37); Blood Urea Nitrogen 30 mg/dL (7-18); Calcium 7.6 mg/dL (8.5-10.1); Carbon Dioxide 26.6 meq/L (21.0-32.0); Chloride 102 meq/L (98-107); Glomerular Filtration Rate 69 mL/min (>89); Glucose,Random 195 mg/dL (74-106); Lactate Dehydrogenase 271 U/L (87-241); Phosphorus 2.6 mg/dL (2.5-4.9); Potassium 3.9 meq/L (3.5-5.1); Sodium 135 meq/L (136-145)
[2018-08-09 06:57] LABS: Alkaline Phosphatase 51 U/L (45-117); Total Protein 7.2 g/dL (6.4-8.2)
[2018-08-09] MEDS ORDERED: Acetaminophen 325 MG Tablet PO PRN (08:11)
[2018-08-09] MEDS: Lisinopril 5 MG Tablet PO SCH (08:55)
[2018-08-09] MEDS: Polyethylene Glycol 3350 17 GM Packet PO SCH (08:57)
[2018-08-09] MEDS: Senna/Docusate Sodium 8.6/50 MG Tablet PO SCH ×2 (08:57→21:32)
[2018-08-09] MEDS: Hydrocortisone Acetate 25 MG Supp RECTAL SCH (08:58)
[2018-08-09] MEDS: Insulin NovoLOG Aspart Correctional Sugar Inj SQ SCH ×4 (08:58→21:32)
[2018-08-09] MEDS: METHYLPREDNISOLONE SOD SUC IV.SIG SCH (08:59)
[2018-08-09] MEDS: Insulin Detemir Inj 1,000 UNIT/10 ML Vial SQ SCH ×2 (08:59→21:22)
[2018-08-09] MEDS: SODIUM CHLOR 0.9% IV.SIG SCH (08:59)
[2018-08-09] MEDS ORDERED: Sodium Chlor 0.9% Inj 250 ML IV.SIG SCH (09:00)
[2018-08-09] MEDS: ROMIPLOSTIM 250 MCG SQ SCH (09:40)
[2018-08-09 11:07] LABS: % Iron Saturation 10.9 % (20-50)
[2018-08-09] MEDS: Nystatin/Diphenhydramine/Lidocaine Mouthwash (Adult) 120 ML Botttle SWISH-SWAL SCH ×4 (12:16→21:31)
--- NOTE | 2018-08-09 12:42 | P.PNONC ---
Subjective Interval history: Patient sleeping on approach, awakens easily. Patient reports arm pain, with multiple bruising from IVs and lab draws. He is pending blood transfusion of PRBCs and platelets. He denies any bleeding. Objective Vital Signs/Intake & Output: Vital Signs 08/08/18 13:00 08/08/18 13:31 08/08/18 13:32 Temperature 97.7 F Pulse Rate 91 H 91 H 92 H Respiratory Rate 17 Blood Pressure 121/63 121/63 Pulse Oximetry 97 98 08/08/18 13:45 08/08/18 14:00 08/08/18 14:15 Temperature 97.6 F Pulse Rate 90 84 81 Respiratory Rate 23 23 Blood Pressure 112/58 L 110/55 L 91/54 L Pulse Oximetry 96 97 97 08/08/18 14:30 08/08/18 14:41 08/08/18 15:00 Temperature Pulse Rate 85 85 94 H Respiratory Rate 23 Blood Pressure 106/58 L Pulse Oximetry 96 97 97 08/08/18 15:01 08/08/18 15:33 08/08/18 16:00 Temperature 97.5 F L Pulse Rate 90 93 H 73 Respiratory Rate 16 Blood Pressure 117/58 L 108/57 L Pulse Oximetry 96 94 L 08/08/18 16:59 08/08/18 17:00 08/08/18 18:00 Temperature Pulse Rate 82 75 75 Respiratory Rate 21 16 Blood Pressure 120/59 L 124/60 Pulse Oximetry 96 98 08/08/18 19:00 08/08/18 20:00 08/08/18 21:00 Temperature 98 F Pulse Rate 85 80 81 Respiratory Rate 24 21 24 Blood Pressure 133/64 108/64 123/63 Pulse Oximetry 97 98 97 08/08/18 21:09 08/08/18 22:00 08/08/18 22:01 Temperature Pulse Rate 86 71 70 Respiratory Rate 19 16 17 Blood Pressure 112/54 L Pulse Oximetry 99 92 L 93 L 08/08/18 23:00 08/09/18 00:00 08/09/18 01:00 Temperature 97.8 F Pulse Rate 77 70 68 Respiratory Rate 16 14 11 L Blood Pressure 97/50 L 104/51 L 114/59 L Pulse Oximetry 93 L 98 95 08/09/18 02:00 08/09/18 02:01 08/09/18 03:00 Temperature Pulse Rate 69 64 68 Respiratory Rate 17 17 17 Blood Pressure 99/48 L 90/46 L Pulse Oximetry 96 96 96 08/09/18 04:00 08/09/18 04:01 08/09/18 05:00 Temperature 98.2 F Pulse Rate 66 65 75 Respiratory Rate 16 16 28 H Blood Pressure 107/51 L 107/51 L Pulse Oximetry 98 98 97 08/09/18 05:01 08/09/18 06:00 08/09/18 07:00 Temperature Pulse Rate 65 66 Respiratory Rate 18 18 Blood Pressure 108/52 L 110/58 L 95/54 L Pulse Oximetry 98 95 95 08/09/18 08:00 08/09/18 08:04 08/09/18 09:00 Temperature 98.9 F Pulse Rate 86 85 92 H Respiratory Rate 26 H 28 H 36 H Blood Pressure 107/60 107/60 Pulse Oximetry 99 08/09/18 09:03 08/09/18 10:00 08/09/18 12:26 Temperature 98.3 F Pulse Rate 93 H 107 H 83 Respiratory Rate 24 29 H 20 Blood Pressure 148/70 H 158/70 H 104/51 L Pulse Oximetry 96 Intake & Output 08/08/18 08/09/18 08/09/18 18:59 06:59 18:59 Intake Total 300 / 300 1250 / 1250 100 / 100 Output Total 1100 / 1100 550 / 550 Balance -800 / -800 700 / 700 100 / 100 Weight 89 kg Intake: IV 300 / 300 900 / 900 100 / 100 Privigen Inj 90 GM In Bag/ 900 / 900 Syringe 1 EACH @ Per Protocol IV.SIG ONCE ONE Rx#:[id number] Magnesium Sulfate 1 gm/D5W 100 200 / 200 ml Premix 100 ML @ 100 mls/hr IV.SIG Q1H [facility]ON Rx#:[id number] SoluMEDROL Inj 250 MG In NS Inj 100 / 100 100 / 100 96 ML @ 200 mls/hr IV.SIG DAILY [facility] Rx#:[id number] Oral 350 / 350 Output: Urine 1100 / 1100 550 / 550 Other: Date of Last Bowel Movement 08/08/18 # Bowel Movements 1 Result Diagrams: 08/09/18 05:23 08/09/18 05:23 Laboratory Results: Laboratory Results - last 24 hr 08/02/18 08/06/18 08/08/18 04:15 09:29 13:48 WBC RBC Hgb Hct MCV MCH MCHC RDW Plt Count MPV Prelim Diff (Auto) Neut % (Auto) Lymph % (Auto) [place] % (Auto) Eos % (Auto) Baso % (Auto) Neut # (Auto) Lymph # (Auto) [place] # (Auto) Eos # (Auto) Baso # (Auto) WBC Differential Diff Scan Differential Comment Platelet Estimate Platelet Morphology Basophilic Stippling Haptoglobin Sodium Potassium Chloride Carbon Dioxide Anion Gap BUN Creatinine Estimated GFR POC Glucose Random Glucose Calcium Phosphorus Magnesium Iron TIBC % Saturation Ferritin Total Bilirubin Direct Bilirubin Indirect Bilirubin AST ALT Alkaline Phosphatase Lactate Dehydrogenase Total Protein Albumin Urine Color Yellow Urine Clarity Hazy H Urine pH 6.0 Ur Specific [place] 1.018 Urine Protein Negative Urine Glucose (UA) 500 or greater Urine Ketones Negative Urine Occult Blood Negative Urine Nitrate Negative Urine Bilirubin Negative Urine Urobilinogen Less than 2 Ur Leukocyte Esterase Negative Blood Type Antibody Screen MTS Gel Crossmatch See Detail See Detail Bld Prod Order Comment 08/08/18 08/08/18 08/09/18 16:23 21:01 05:23 WBC RBC Hgb Hct MCV MCH MCHC RDW Plt Count MPV Prelim Diff (Auto) Neut % (Auto) Lymph % (Auto) [place] % (Auto) Eos % (Auto) Baso % (Auto) Neut # (Auto) Lymph # (Auto) [place] # (Auto) Eos # (Auto) Baso # (Auto) WBC Differential Diff Scan Differential Comment Platelet Estimate Platelet Morphology Basophilic Stippling Haptoglobin 117 Sodium 135 L Potassium 3.9 Chloride 102 Carbon Dioxide 26.6 Anion Gap 6 BUN 30 H Creatinine 1.03 Estimated GFR 69 L POC Glucose 369 H 325 H Random Glucose 195 H Calcium 7.6 L Phosphorus 2.6 Magnesium 2.0 Iron TIBC % Saturation Ferritin Total Bilirubin 0.6 Direct Bilirubin 0.3 H Indirect Bilirubin 0.3 AST 44 H ALT 52 Alkaline Phosphatase 51 Lactate Dehydrogenase 271 H Total Protein 7.2 D Albumin 2.1 L Urine Color Urine Clarity Urine pH Ur Specific [place] Urine Protein Urine Glucose (UA) Urine Ketones Urine Occult Blood Urine Nitrate Urine Bilirubin Urine Urobilinogen Ur Leukocyte Esterase Blood Type Antibody Screen MTS Gel Crossmatch Bld Prod Order Comment 08/09/18 08/09/18 08/09/18 05:23 08:37 10:00 WBC 6.9 RBC 2.38 L Hgb 6.9 L* Hct 20.2 L* MCV 85.0 MCH 28.8 MCHC 33.9 RDW 17.1 Plt Count 13 L* MPV 9.8 Prelim Diff (Auto) Slide review pending Neut % (Auto) 86.6 H Lymph % (Auto) 7.0 L [place] % (Auto) 6.2 Eos % (Auto) 0.0 Baso % (Auto) 0.2 Neut # (Auto) 6.0 Lymph # (Auto) 0.5 L [place] # (Auto) 0.4 Eos # (Auto) 0.0 Baso # (Auto) 0.0 WBC Differential . Diff Scan Auto diff confirmed Differential Comment . Platelet Estimate Low L Platelet Morphology Enlarged H Basophilic Stippling Faint H Haptoglobin Sodium Potassium Chloride Carbon Dioxide Anion Gap BUN Creatinine Estimated GFR POC Glucose 164 H Random Glucose Calcium Phosphorus Magnesium Iron TIBC % Saturation Ferritin Total Bilirubin Direct Bilirubin Indirect Bilirubin AST ALT Alkaline Phosphatase Lactate Dehydrogenase Total Protein Albumin Urine Color Urine Clarity Urine pH Ur Specific [place] Urine Protein Urine Glucose (UA) Urine Ketones Urine Occult Blood Urine Nitrate Urine Bilirubin Urine Urobilinogen Ur Leukocyte Esterase Blood Type O Positive Antibody Screen Negative MTS Gel Crossmatch See Detail Bld Prod Order Comment 08/09/18 08/09/18 10:00 12:08 WBC RBC Hgb Hct MCV MCH MCHC RDW Plt Count MPV Prelim Diff (Auto) Neut % (Auto) Lymph % (Auto) [place] % (Auto) Eos % (Auto) Baso % (Auto) Neut # (Auto) Lymph # (Auto) [place] # (Auto) Eos # (Auto) Baso # (Auto) WBC Differential Diff Scan Differential Comment Platelet Estimate Platelet Morphology Basophilic Stippling Haptoglobin Sodium Potassium Chloride Carbon Dioxide Anion Gap BUN Creatinine Estimated GFR POC Glucose 392 H Random Glucose Calcium Phosphorus Magnesium Iron 42 L TIBC 386 % Saturation 10.9 L Ferritin 42 Total Bilirubin Direct Bilirubin Indirect Bilirubin AST ALT Alkaline Phosphatase Lactate Dehydrogenase Total Protein Albumin Urine Color Urine Clarity Urine pH Ur Specific [place] Urine Protein Urine Glucose (UA) Urine Ketones Urine Occult Blood Urine Nitrate Urine Bilirubin Urine Urobilinogen Ur Leukocyte Esterase Blood Type Antibody Screen MTS Gel Crossmatch Bld Prod Order Comment Medications: Active Medications Generic Name Dose Route Start Last Admin Trade Name Freq PRN Reason Stop Dose Admin Acetaminophen 650 mg 08/02/18 04:18 08/03/18 13:32 Tylenol PO 650 mg Q6H PRN Administration PAIN 1-10 AND/OR FEVER >101F Carvedilol 3.125 mg 08/05/18 09:00 08/09/18 08:55 Coreg PO 3.125 mg BID MERON Administration Hydrocortisone Acetate 100 mg 08/02/18 21:00 08/08/18 21:03 Cortenema RECTAL 100 mg HS MERON Administration Hydrocortisone Acetate 25 mg 08/02/18 21:00 08/09/18 08:58 Hemorrhoidal Hc Supp RECTAL 25 mg BID [facility]ON Administration Potassium Chloride 20 meq in 100 mls @ 50 mls/hr 08/05/18 08:03 08/05/18 17: 14 Kcl 20 Meq Premix Inj IV.SIG Infused Q2H PRN Infusion For Potassium 2.8 - 3.2 mEq/L Potassium Phosphate 30 mmol/ 260 mls @ 42 mls/hr 08/05/18 08:03 08/07/18 11: 42 Sodium Chloride IV.SIG Infused UNSCH PRN Infusion SEE LABEL COMMENTS Methylprednisolone Sodium 100 mls @ 200 mls/hr 08/07/18 09:00 08/09/18 09:30 Succinate 250 mg/ Sodium IV.SIG Infused Chloride DAILY MERON Infusion Sodium Chloride 250 mls @ 15 mls/hr 08/09/18 09:00 08/09/18 12:16 Ns Inj IV.SIG 08/10/18 01:39 15 mls/hr ONCE [facility]ON Administration Insulin Aspart 0 unit 08/08/18 12:00 08/09/18 12:18 Novolog Insulin Correctional Sugar Inj SQ 25 unit ACHS [facility]ON Administration Protocol Insulin Detemir 18 unit 08/08/18 21:00 08/09/18 08:59 Levemir Inj SQ 18 unit BID [facility]ON Administration Lisinopril 2.5 mg 08/05/18 09:00 08/09/18 08:55 Prinivil PO 2.5 mg DAILY [facility]ON Administration Multi-Ingredient Mouthwash/Gargle 10 ml 08/08/18 18:00 08/09/18 12:22 Magic Mouthwash Adult Liq SWISH-SWAL 10 ml QID [facility]ON Administration Pantoprazole Sodium 40 mg 08/02/18 05:00 08/09/18 05:22 Protonix Inj IV.PUSH 40 mg Q12H [facility]ON Administration Polyethylene Glycol 17 gm 08/08/18 11:45 08/09/18 08:57 Miralax PO Not Given DAILY [facility]ON Potassium Bicarb/Potassium Chloride 50 meq 08/05/18 08:43 08/07/18 22:30 K-Lyte Cl Eff PO 50 meq UNSCH PRN Administration For Potassium 3.3 - 3.5 mEq/L Potassium Phosphate 2,000 mg 08/05/18 08:03 08/06/18 15:48 K-Phos Original PO 2,000 mg Q4H PRN Administration Phosphorus Less Than 2.5 mg/dL Romiplostim 89 mcg 08/09/18 10:00 08/09/18 09:40 Nplate Inj SQ 89 mcg Q7D [facility]ON Administration Senna/Docusate Sodium 1 tab 08/02/18 09:00 08/09/18 08:57 Lisa-Colace PO Not Given BID [facility]ON Sodium Chloride 2 ml 08/02/18 09:00 08/09/18 08:57 Ns Flush IV.FLUSH 2 ml BID [facility] Administration Sodium Chloride 2 ml 08/02/18 04:18 08/06/18 09:37 Ns Flush IV.FLUSH 2 ml PRN PRN Administration FLUSH AFTER USING IV ACCESS Tamsulosin HCl 0.4 mg 08/02/18 09:00 08/09/18 08:55 Flomax PO 0.4 mg DAILY [facility]ON Administration Objective Remarks: GENERAL: Ill-appearing elderly male patient, in no acute distress. SKIN: Pale, warm and dry. Bruises to bilateral arms. HEAD: Normocephalic. EYES: No scleral icterus. No injection or drainage. MOUTH: Small white patches to tongue and soft palate. Dentures in place. NECK: Supple, trachea midline. CARDIOVASCULAR: Regular rate and rhythm without murmurs. RESPIRATORY: Breath sounds clear, equal bilaterally. Nonlabored at rest. GASTROINTESTINAL: Abdomen soft, distended, non-tender. EXTREMITIES: No cyanosis, or edema. MUSCULOSKELETAL: Decreased muscle tone. NEUROLOGICAL: No obvious focal deficit. Awake, alert, oriented x's 3. PSYCHIATRIC: Calm. Assessment/Plan - Plan Mr. Butterfield is a pleasant 83-year-old male patient who is currently hospitalized for a GI bleed. Hematology was consulted for severe thrombocytopenia. 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 Plan: 1. Acute ITP. Continue IV steroids, status post immunoglobulin on 08/04/2018. Platelet count 13,000 today. Patient received an additional dose of IVIG, yesterday. Hemoglobin trended to 6.9, ordered 1 unit PRBCs and 1 unit of platelets to be transfused today. 2. GI bleed, management per gastroenterology. Hemoglobin trended down to 6.9 today. Pt is likely still loosing blood in GI tract, however he is unable to undergo procedure with low platelets. Will continue to treat the ITP and support transfusions as needed. 3. Thrush, continue Magic mouthwash. 4. Repeat CBC in the a.m.
--- NOTE | 2018-08-09 12:51 | P.PNCC ---
Subjective Subjective Remarks/Hospital Course: 83-year-old very pleasant gentleman with history of prostate cancer on hormonal therapy with the last course received in end of May, presents with generalized weakness and gross blood on rectal exam with very loose watery blood. Patient initially was hypotensive prior to arrival with the blood pressure 80/50, after liter of fluid prior to arrival by [facility] the patient's blood pressure now 120/59. Laboratory abnormalities notable for a platelet count of 7000, hemoglobin of 7.1. These are critical levels and a 6 pack of platelets as well as 2 PRBCs now and 2 in reserve been ordered by ED attending, as well as Protonix drip, and octreotide. The patient does have a history of prostate cancer, he has been on Firmagon from his urology/oncologist. 08/03 Patient is lying in bed in NAD. s/p 2u PLT and 2u PRBC yesterday PLT 5 this morning. 08/04 No events overnight. s/p transfusion 1u PLT and 1 u PRBC yesterday PLT count 14 last night from 5. 08/05 Patient s/p transfusion 2u PRBC and 1u PLT since yesterday. Afebrile. PLT count 16 last night. 08/06 Patient seems confused and agitated this morning however he is awake and oriented to time and place. Afebrile. 08/07 Patient is lying in bed in NAD. PLT 28 this morning. 08/08: Resting in bed and somewhat confused and depressed that his platelets continue to drop. Plates were 14 this morning. He will remain stable. Tolerating diet. SUBJECTIVE 08/09: Resting in bed. Less confused this a.m. Complaining of hematomas from blood draws. Being transfused 1 PRBC and 1 platelets today. Received IVIG yesterday at this hospital does not have RhoGam available Objective Vital Signs / I&O: Vital Signs 08/08/18 13:00 08/08/18 13:31 08/08/18 13:32 Temperature 97.7 F Pulse Rate 91 H 91 H 92 H Respiratory Rate 17 Blood Pressure 121/63 121/63 Pulse Oximetry 97 98 08/08/18 13:45 08/08/18 14:00 08/08/18 14:15 Temperature 97.6 F Pulse Rate 90 84 81 Respiratory Rate 23 23 Blood Pressure 112/58 L 110/55 L 91/54 L Pulse Oximetry 96 97 97 08/08/18 14:30 08/08/18 14:41 08/08/18 15:00 Temperature Pulse Rate 85 85 94 H Respiratory Rate 23 Blood Pressure 106/58 L Pulse Oximetry 96 97 97 08/08/18 15:01 08/08/18 15:33 08/08/18 16:00 Temperature 97.5 F L Pulse Rate 90 93 H 73 Respiratory Rate 16 Blood Pressure 117/58 L 108/57 L Pulse Oximetry 96 94 L 08/08/18 16:59 08/08/18 17:00 08/08/18 18:00 Temperature Pulse Rate 82 75 75 Respiratory Rate 21 16 Blood Pressure 120/59 L 124/60 Pulse Oximetry 96 98 08/08/18 19:00 08/08/18 20:00 08/08/18 21:00 Temperature 98 F Pulse Rate 85 80 81 Respiratory Rate 24 21 24 Blood Pressure 133/64 108/64 123/63 Pulse Oximetry 97 98 97 08/08/18 21:09 08/08/18 22:00 08/08/18 22:01 Temperature Pulse Rate 86 71 70 Respiratory Rate 19 16 17 Blood Pressure 112/54 L Pulse Oximetry 99 92 L 93 L 08/08/18 23:00 08/09/18 00:00 08/09/18 01:00 Temperature 97.8 F Pulse Rate 77 70 68 Respiratory Rate 16 14 11 L Blood Pressure 97/50 L 104/51 L 114/59 L Pulse Oximetry 93 L 98 95 08/09/18 02:00 08/09/18 02:01 08/09/18 03:00 Temperature Pulse Rate 69 64 68 Respiratory Rate 17 17 17 Blood Pressure 99/48 L 90/46 L Pulse Oximetry 96 96 96 08/09/18 04:00 08/09/18 04:01 08/09/18 05:00 Temperature 98.2 F Pulse Rate 66 65 75 Respiratory Rate 16 16 28 H Blood Pressure 107/51 L 107/51 L Pulse Oximetry 98 98 97 08/09/18 05:01 08/09/18 06:00 08/09/18 07:00 Temperature Pulse Rate 65 66 Respiratory Rate 18 18 Blood Pressure 108/52 L 110/58 L 95/54 L Pulse Oximetry 98 95 95 08/09/18 08:00 08/09/18 08:04 08/09/18 09:00 Temperature 98.9 F Pulse Rate 86 85 92 H Respiratory Rate 26 H 28 H 36 H Blood Pressure 107/60 107/60 Pulse Oximetry 99 08/09/18 09:03 08/09/18 10:00 08/09/18 12:26 Temperature 98.3 F Pulse Rate 93 H 107 H 83 Respiratory Rate 24 29 H 20 Blood Pressure 148/70 H 158/70 H 104/51 L Pulse Oximetry 96 Intake & Output 08/08/18 08/09/18 08/09/18 18:59 06:59 18:59 Intake Total 300 / 300 1250 / 1250 100 / 100 Output Total 1100 / 1100 550 / 550 Balance -800 / -800 700 / 700 100 / 100 Weight 89 kg Intake: IV 300 / 300 900 / 900 100 / 100 Privigen Inj 90 GM In Bag/ 900 / 900 Syringe 1 EACH @ Per Protocol IV.SIG ONCE ONE Rx#:[id number] Magnesium Sulfate 1 gm/D5W 100 200 / 200 ml Premix 100 ML @ 100 mls/hr IV.SIG Q1H MERON Rx#:[id number] SoluMEDROL Inj 250 MG In NS Inj 100 / 100 100 / 100 96 ML @ 200 mls/hr IV.SIG DAILY MERON Rx#:[id number] Oral 350 / 350 Output: Urine 1100 / 1100 550 / 550 Other: Date of Last Bowel Movement 08/08/18 # Bowel Movements 1 Result Diagrams: 08/09/18 05:23 08/09/18 05:23 Imaging: Abdomen/Pelvis CT 08/02/18 04:01 CONCLUSION: 1. 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 2. Nonacute findings include severe atherosclerotic disease, cholelithiasis, stable complex cystic lesion of the left kidney measuring 6.5 cm, and cirrhotic liver. Head CT 08/02/18 04:01 CONCLUSION: No acute intracranial abnormality is identified. . Chest X-Ray 08/05/18 08:08 CONCLUSION: Radiographic findings consistent with congestive heart failure and pulmonary edema. These findings are new as compared to the CT of August 02, 2018 Chest X-Ray 08/07/18 08:39 CONCLUSION: 1. Cardiomegaly with mild positive fluid balance. 2. Minimal bibasilar airspace disease, presumably atelectasis. Objective Remarks: GENERAL: Patient is 83 yo lying in bed in [facility] SKIN: Warm and dry. Multiple ecchymoses bilateral upper extremities HEAD: Normocephalic. EYES: No scleral icterus. No injection or drainage. NECK: Supple, trachea midline. No JVD or lymphadenopathy. CARDIOVASCULAR: IRR. S1, S2 no S4. Without murmurs, gallops, or rubs. RESPIRATORY: Breath sounds equal bilaterally. No accessory muscle use. GASTROINTESTINAL: Abdomen soft, non-tender, nondistended. MUSCULOSKELETAL: No significant peripheral edema. Neuro: Awake and alert Assessment and Plan - Assessment and Plan Plan: Severe thrombocytopenia - ITP Acute normocytic anemia ? GI bleed Hyperglycemia Hx DM Hx Prostate ca s/p radiation tx. Proctitis per CT abd. Acute systolic heart failure Atrial flutter Elevated AST Hypoalbuminemia Plan Neuro: Awake, alert. Monitor neuro status and avoid sedatives. CT brain: No acute findings Pulm: Continue with Oxygen keep sats >92% Albuterol/ipratropium aerosols every 6 hours with albuterol aerosols every 2 hours as needed dyspnea CV: Monitor HR and BP keep MAP>65mmHg Echo showed severe LV dysfunction with EF 30-35% Continue Lisinopril 2.5mg daily and carvedilol 3.125mg BID. Not a candidate for ASA or systemic anticoagulation due to severe thrombocytopenia Cards has intermittently followed-Dr. Nation : Monitor renal function, I/O's, electrolytes replacement per protocol. Continue tamsulosin 0.4 mg daily GI: On PO cardiac diet. IV pantoprazole 40mg BID GI is following. On Hydrocortisone supp BID. Possible colonoscopy in future when stable ID: Monitor for signs of infections ( fever, WBC) Panculture if spikes a fever Heme: Monitor CBC, coags, s/p transfusion 6u PRBC and 5 u PLT since admission Hematology is following-yesterday 08/08 and received IVIG on methylprednisolone succinate 250mg IV Q24, s/p IgG for ITP completed 08/04. Haptoglobin was 117. LDH was elevated to 71. UA negative for hemolysis. Endo: On high SSI for glycemic control, insulin detemir 18u BID DVT GI prophylaxis -Teds SCDs -No pharmacological DVT prophylaxis due to severe thrombocytopenia and GI bleed -Pantoprazole IV twice daily Level 3
--- NOTE | 2018-08-09 13:15 | P.PNGI ---
Subjective Interval history: Patient has eyes closed resting in the bed appears more fatigued today. Current hemoglobin 6.9 which was another gradual decrease over the past 24 hours. Patient initially denied any further red rectal bleeding but does note an occasional spot of blood when wiping. No nausea and vomiting Physical Exam Vital signs: Vital Signs 08/08/18 13:31 08/08/18 13:32 08/08/18 13:45 Temperature 97.7 F 97.6 F Pulse Rate 91 H 92 H 90 Respiratory Rate 17 23 Blood Pressure 121/63 121/63 112/58 L Pulse Oximetry 98 96 08/08/18 14:00 08/08/18 14:15 08/08/18 14:30 Temperature Pulse Rate 84 81 85 Respiratory Rate 23 Blood Pressure 110/55 L 91/54 L Pulse Oximetry 97 97 96 08/08/18 14:41 08/08/18 15:00 08/08/18 15:01 Temperature Pulse Rate 85 94 H 90 Respiratory Rate 23 Blood Pressure 106/58 L 117/58 L Pulse Oximetry 97 97 96 08/08/18 15:33 08/08/18 16:00 08/08/18 16:59 Temperature 97.5 F L Pulse Rate 93 H 73 82 Respiratory Rate 16 Blood Pressure 108/57 L Pulse Oximetry 94 L 08/08/18 17:00 08/08/18 18:00 08/08/18 19:00 Temperature Pulse Rate 75 75 85 Respiratory Rate 21 16 24 Blood Pressure 120/59 L 124/60 133/64 Pulse Oximetry 96 98 97 08/08/18 20:00 08/08/18 21:00 08/08/18 21:09 Temperature 98 F Pulse Rate 80 81 86 Respiratory Rate 21 24 19 Blood Pressure 108/64 123/63 Pulse Oximetry 98 97 99 08/08/18 22:00 08/08/18 22:01 08/08/18 23:00 Temperature Pulse Rate 71 70 77 Respiratory Rate 16 17 16 Blood Pressure 112/54 L 97/50 L Pulse Oximetry 92 L 93 L 93 L 08/09/18 00:00 08/09/18 01:00 08/09/18 02:00 Temperature 97.8 F Pulse Rate 70 68 69 Respiratory Rate 14 11 L 17 Blood Pressure 104/51 L 114/59 L Pulse Oximetry 98 95 96 08/09/18 02:01 08/09/18 03:00 08/09/18 04:00 Temperature 98.2 F Pulse Rate 64 68 66 Respiratory Rate 17 17 16 Blood Pressure 99/48 L 90/46 L 107/51 L Pulse Oximetry 96 96 98 08/09/18 04:01 08/09/18 05:00 08/09/18 05:01 Temperature Pulse Rate 65 75 Respiratory Rate 16 28 H Blood Pressure 107/51 L 108/52 L Pulse Oximetry 98 97 98 08/09/18 06:00 08/09/18 07:00 08/09/18 08:00 Temperature 98.9 F Pulse Rate 65 66 86 Respiratory Rate 18 18 26 H Blood Pressure 110/58 L 95/54 L 107/60 Pulse Oximetry 95 95 99 08/09/18 08:04 08/09/18 09:00 08/09/18 09:03 Temperature Pulse Rate 85 92 H 93 H Respiratory Rate 28 H 36 H 24 Blood Pressure 107/60 148/70 H Pulse Oximetry 08/09/18 10:00 08/09/18 12:00 08/09/18 12:26 Temperature 98.3 F Pulse Rate 107 H 85 83 Respiratory Rate 29 H 20 Blood Pressure 158/70 H 104/51 L Pulse Oximetry 96 Intake & Output 08/08/18 08/09/18 08/09/18 18:59 06:59 18:59 Intake Total 300 / 300 1250 / 1250 100 / 100 Output Total 1100 / 1100 550 / 550 Balance -800 / -800 700 / 700 100 / 100 Weight 89 kg Intake: IV 300 / 300 900 / 900 100 / 100 Privigen Inj 90 GM In Bag/ 900 / 900 Syringe 1 EACH @ Per Protocol IV.SIG ONCE ONE Rx#:[id number] Magnesium Sulfate 1 gm/D5W 100 200 / 200 ml Premix 100 ML @ 100 mls/hr IV.SIG Q1H MERON Rx#:[id number] SoluMEDROL Inj 250 MG In NS Inj 100 / 100 100 / 100 96 ML @ 200 mls/hr IV.SIG DAILY MERON Rx#:[id number] Oral 350 / 350 Output: Urine 1100 / 1100 550 / 550 Other: Date of Last Bowel Movement 08/08/18 # Bowel Movements 1 - Constitutional mild distress, obese, cachectic, chronically ill appearing - Routine HEENT Exam Head: Present: normocephalic ENT: Present: mucous membranes dry - Routine Respiratory Exam Present: accessory muscle use (No shortness of breath at rest) - Routine Cardiovascular Exam Present: S1, S2 - Routine Abdominal Exam Present: soft (Round, no obvious tenderness, obese) Results - Labs CBC & Chem 7: 08/09/18 05:23 08/09/18 05:23 Laboratory Results - last 24 hr 08/02/18 08/06/18 08/08/18 04:15 09:29 13:48 WBC RBC Hgb Hct MCV MCH MCHC RDW Plt Count MPV Prelim Diff (Auto) Neut % (Auto) Lymph % (Auto) Collin % (Auto) Eos % (Auto) Baso % (Auto) Neut # (Auto) Lymph # (Auto) Collin # (Auto) Eos # (Auto) Baso # (Auto) WBC Differential Diff Scan Differential Comment Platelet Estimate Platelet Morphology Basophilic Stippling Haptoglobin Sodium Potassium Chloride Carbon Dioxide Anion Gap BUN Creatinine Estimated GFR POC Glucose Random Glucose Calcium Phosphorus Magnesium Iron TIBC % Saturation Ferritin Total Bilirubin Direct Bilirubin Indirect Bilirubin AST ALT Alkaline Phosphatase Lactate Dehydrogenase Total Protein Albumin Urine Color Yellow Urine Clarity Hazy H Urine pH 6.0 Ur Specific [place] 1.018 Urine Protein Negative Urine Glucose (UA) 500 or greater Urine Ketones Negative Urine Occult Blood Negative Urine Nitrate Negative Urine Bilirubin Negative Urine Urobilinogen Less than 2 Ur Leukocyte Esterase Negative Blood Type Antibody Screen MTS Gel Crossmatch See Detail See Detail Bld Prod Order Comment 08/08/18 08/08/18 08/09/18 16:23 21:01 05:23 WBC RBC Hgb Hct MCV MCH MCHC RDW Plt Count MPV Prelim Diff (Auto) Neut % (Auto) Lymph % (Auto) Collin % (Auto) Eos % (Auto) Baso % (Auto) Neut # (Auto) Lymph # (Auto) Collin # (Auto) Eos # (Auto) Baso # (Auto) WBC Differential Diff Scan Differential Comment Platelet Estimate Platelet Morphology Basophilic Stippling Haptoglobin 117 Sodium 135 L Potassium 3.9 Chloride 102 Carbon Dioxide 26.6 Anion Gap 6 BUN 30 H Creatinine 1.03 Estimated GFR 69 L POC Glucose 369 H 325 H Random Glucose 195 H Calcium 7.6 L Phosphorus 2.6 Magnesium 2.0 Iron TIBC % Saturation Ferritin Total Bilirubin 0.6 Direct Bilirubin 0.3 H Indirect Bilirubin 0.3 AST 44 H ALT 52 Alkaline Phosphatase 51 Lactate Dehydrogenase 271 H Total Protein 7.2 D Albumin 2.1 L Urine Color Urine Clarity Urine pH Ur Specific [place] Urine Protein Urine Glucose (UA) Urine Ketones Urine Occult Blood Urine Nitrate Urine Bilirubin Urine Urobilinogen Ur Leukocyte Esterase Blood Type Antibody Screen MTS Gel Crossmatch Bld Prod Order Comment 08/09/18 08/09/18 08/09/18 05:23 08:37 10:00 WBC 6.9 RBC 2.38 L Hgb 6.9 L* Hct 20.2 L* MCV 85.0 MCH 28.8 MCHC 33.9 RDW 17.1 Plt Count 13 L* MPV 9.8 Prelim Diff (Auto) Slide review pending Neut % (Auto) 86.6 H Lymph % (Auto) 7.0 L Collin % (Auto) 6.2 Eos % (Auto) 0.0 Baso % (Auto) 0.2 Neut # (Auto) 6.0 Lymph # (Auto) 0.5 L Collin # (Auto) 0.4 Eos # (Auto) 0.0 Baso # (Auto) 0.0 WBC Differential . Diff Scan Auto diff confirmed Differential Comment . Platelet Estimate Low L Platelet Morphology Enlarged H Basophilic Stippling Faint H Haptoglobin Sodium Potassium Chloride Carbon Dioxide Anion Gap BUN Creatinine Estimated GFR POC Glucose 164 H Random Glucose Calcium Phosphorus Magnesium Iron TIBC % Saturation Ferritin Total Bilirubin Direct Bilirubin Indirect Bilirubin AST ALT Alkaline Phosphatase Lactate Dehydrogenase Total Protein Albumin Urine Color Urine Clarity Urine pH Ur Specific [place] Urine Protein Urine Glucose (UA) Urine Ketones Urine Occult Blood Urine Nitrate Urine Bilirubin Urine Urobilinogen Ur Leukocyte Esterase Blood Type O Positive Antibody Screen Negative MTS Gel Crossmatch See Detail Bld Prod Order Comment 08/09/18 08/09/18 10:00 12:08 WBC RBC Hgb Hct MCV MCH MCHC RDW Plt Count MPV Prelim Diff (Auto) Neut % (Auto) Lymph % (Auto) Collin % (Auto) Eos % (Auto) Baso % (Auto) Neut # (Auto) Lymph # (Auto) Collin # (Auto) Eos # (Auto) Baso # (Auto) WBC Differential Diff Scan Differential Comment Platelet Estimate Platelet Morphology Basophilic Stippling Haptoglobin Sodium Potassium Chloride Carbon Dioxide Anion Gap BUN Creatinine Estimated GFR POC Glucose 392 H Random Glucose Calcium Phosphorus Magnesium Iron 42 L TIBC 386 % Saturation 10.9 L Ferritin 42 Total Bilirubin Direct Bilirubin Indirect Bilirubin AST ALT Alkaline Phosphatase Lactate Dehydrogenase Total Protein Albumin Urine Color Urine Clarity Urine pH Ur Specific [place] Urine Protein Urine Glucose (UA) Urine Ketones Urine Occult Blood Urine Nitrate Urine Bilirubin Urine Urobilinogen Ur Leukocyte Esterase Blood Type Antibody Screen MTS Gel Crossmatch Bld Prod Order Comment Assessment and Plan - Plan Bright red blood per rectum No more bleeding since yesterday afternoon. hgb today 8.1. Received 5 units of blood Has never had an EGD or colonoscopy. Denies taking any blood thinners. 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 Prostate cancer status post 45 treatments of radiation completed in July 2017 and patient reports once a month injections that he finished in April of this year. Thrombocytopeniaplatelet count currently 16. Patient does have history of thrombocytopenia but has never been this low according to previous chart review. States that he has not seen a director information or oncologist in the past. Oncology on the case, plt today is 16 s/p 4 units of plt IV steroids, status post immunoglobulin on 08/04/2018. ? Ritxuan/Cytoxan 08/07/2018 patient continues in the intensive care setting, maroon stool x1, no further bleeding today. Hemoglobin appears stable at 8. Patient talkative and appears slightly anxious and overwhelmed by his current condition. States he never had any heart problems before. Currently has no nausea no vomiting no abdominal pain and no abdominal cramping. Discussed with patient possible colonoscopy when he is more stable and feeling better, platelet count 28, mild gradual trend up. Status post prostate cancer with radiation, which could contribute to patient's thrombocytopenia. Will continue HC suppositories for now to assist with any proctitis. Explained to patient 08/08/2018 patient is sitting up in a chair and appears more alert today. Denies any abdominal pain but questionable constipation. Patient notes small bowel movement yesterday and is sometimes incontinent in the bed with stool but minimal amount. Discussed with patient the need for bowel regimen and no straining at this time since he had bright red rectal bleeding initially. Patient's platelet count has declined again today to 14, hemoglobin is 7.8 from last check of 8. Albumin 2.6, bilirubin and LFTs unremarkable for now. No further rectal bleeding at this time. 08/09/2018 patient has decrease in hemoglobin again today 6.91 unit of packed RBCs and 1 unit of platelets is pending currently has continued to have decrease in platelet count again 13 this a.m. stool within the past 24 hours did have some blood surrounding and patient states small amount of blood when wiping. Still requesting that suppositories are aggravating and could be causing more irritation on insertion. Will discontinue for now May consider sigmoidoscopy with [facility] if patient continues to have rectal bleeding possibly hemorrhoid related. Will monitor platelet level in a.m. Plan Diet , cardiac PPI Zofran Change suppositories to as needed MiraLAX Monitor for any further acute rectal bleeding, consider sigmoidoscopy with [facility] or colonoscopy when platelet count is around 50 or greater. Patient is receiving some platelets today as well as 1 unit packed RBCs Monitor hemoglobin and transfuse as needed Supportive care Patient was seen per myself and Dr. Ambrocio, note was written on her behalf
[2018-08-09 17:01] LABS: Hematocrit 23.3 % (39.0-51.0); Hemoglobin 7.8 gm/dL (13.0-17.0); Mean Corpuscular HGB Conc 33.4 % (32.0-36.0); Mean Corpuscular Hemoglobin 29.1 pg (27.0-34.0); Mean Corpuscular Volume 87.2 fL (80.0-100.0); Mean Platelet Volume 8.2 fL (7.0-11.0); Platelet Count 50 th/mm3 (150-450); Red Blood Count 2.68 mil/mm3 (4.50-5.90); Red Cell Distribution Width 16.8 % (11.6-17.2); White Blood Count 14.7 th/mm3 (4.0-11.0)
--- NOTE | 2018-08-10 00:14 | P.PNCA ---
Subjective Interval history: No events overnight Received PRBC/Plts Hematomas from IV sites Medications and Allergies Active Medications: Active Medications Acetaminophen (Tylenol) 650 mg PO Q6H PRN PRN Reason: PAIN 1-10 AND/OR FEVER >101F Last Admin: 08/03/18 13:32 Dose: 650 mg Al Hydroxide/Mg Hydroxide (Milk Of Magnalbert Liq) 30 ml PO Q12H PRN PRN Reason: Mild Constipation Albuterol (Albuterol Neb (Prn)) 2.5 mg NEB Q2HR NEB PRN PRN Reason: DYSPNEA Carvedilol (Coreg) 3.125 mg PO BID MERON Last Admin: 08/09/18 21:21 Dose: 3.125 mg Dextrose (D50w Vial) 50 ml IV.PUSH UNSCH PRN PRN Reason: PER HYPOGLYCEMIA PROTOCOL Glucagon (Glucagon Inj) 1 mg OTHER PRN PRN PRN Reason: for Hypoglycemia Protocol Magnesium Sulfate 4 gm/ Sodium (Chloride) 100 mls @ 50 mls/hr IV.SIG UNSCH PRN PRN Reason: For Magnesium 0.9 - 1.1 mg/dL Magnesium Sulfate 2 gm/ Sodium (Chloride) 100 mls @ 50 mls/hr IV.SIG UNSCH PRN PRN Reason: For Magnesium 1.2 - 1.6 mg/dL Potassium Chloride (Kcl 40 Meq Premix Inj) 40 meq in 100 mls @ 25 mls/hr IV.SIG Q2H PRN PRN Reason: For Potassium 2.8 - 3.2 mEq/L Potassium Chloride (Kcl 20 Meq Premix Inj) 20 meq in 100 mls @ 50 mls/hr IV.SIG Q2H PRN PRN Reason: For Potassium 3.3 - 3.5 mEq/L Potassium Chloride (Kcl 40 Meq Premix Inj) 40 meq in 100 mls @ 25 mls/hr IV.SIG UNSCH PRN PRN Reason: For Potassium 3.3 - 3.5 mEq/L Potassium Chloride (Kcl 20 Meq Premix Inj) 20 meq in 100 mls @ 50 mls/hr IV.SIG Q2H PRN PRN Reason: For Potassium 2.8 - 3.2 mEq/L Last Infusion: 08/05/18 17:14 Dose: Infused Potassium Phosphate 30 mmol/ (Sodium Chloride) 260 mls @ 42 mls/hr IV.SIG UNSCH PRN PRN Reason: SEE LABEL COMMENTS Last Infusion: 08/07/18 11:42 Dose: Infused Sodium Phosphate 30 mmol/ (Sodium Chloride) 260 mls @ 42 mls/hr IV.SIG UNSCH PRN PRN Reason: For Phosphorus < 2.5 mg/dL Methylprednisolone Sodium Succinate 250 mg/ Sodium Chloride 100 mls @ 200 mls/ hr IV.SIG DAILY MERON Last Infusion: 08/09/18 09:30 Dose: Infused Sodium Chloride (Ns Inj) 250 mls @ 15 mls/hr IV.SIG ONCE MERON Stop: 08/10/18 01:39 Last Infusion: 08/09/18 18:53 Dose: 15 mls/hr Insulin Aspart (Novolog Insulin Correctional Sugar Inj) 0 unit SQ ACHS MERON; Protocol Last Admin: 08/09/18 21:32 Dose: 20 unit Insulin Detemir (Levemir Inj) 18 unit SQ BID [facility] Last Admin: 08/09/18 21:22 Dose: 18 unit Lactulose (Lactulose Liq) 30 ml PO DAILY PRN PRN Reason: SEVERE CONSITIPATION Lisinopril (Prinivil) 2.5 mg PO DAILY [facility] Last Admin: 08/09/18 08:55 Dose: 2.5 mg Magnesium Oxide (Mag-Ox) 800 mg PO UNSCH PRN PRN Reason: For Magnesium 1.2 - 1.6 mg/dL Morphine Sulfate (Morphine Inj) 2 mg IV.PUSH Q2H PRN PRN Reason: PAIN SCALE 6 TO 10 Multi-Ingredient Mouthwash/Gargle (Magic Mouthwash Adult Liq) 10 ml SWISH-SWAL QID [facility] Last Admin: 08/09/18 21:31 Dose: 10 ml Ondansetron HCl (Zofran Inj) 4 mg IV.PUSH Q6H PRN PRN Reason: NAUSEA OR VOMITING Pantoprazole Sodium (Protonix Inj) 40 mg IV.PUSH Q12H [facility] Last Admin: 08/09/18 17:16 Dose: 40 mg Polyethylene Glycol (Miralax) 17 gm PO DAILY [facility] Last Admin: 08/09/18 08:57 Dose: Not Given Potassium Bicarb/Potassium Chloride (K-Lyte Cl Eff) 50 meq PO UNSCH PRN PRN Reason: For Potassium 3.3 - 3.5 mEq/L Last Admin: 08/07/18 22:30 Dose: 50 meq Potassium Phosphate (K-Phos Original) 2,000 mg PO Q4H PRN PRN Reason: Phosphorus Less Than 2.5 mg/dL Last Admin: 08/06/18 15:48 Dose: 2,000 mg Potassium Phosphate (K-Phos Original) 2,000 mg PO UNSCH PRN PRN Reason: SEE LABEL COMMENTS Romiplostim (Nplate Inj) 89 mcg SQ Q7D [facility] Last Admin: 08/09/18 09:40 Dose: 89 mcg Senna/Docusate Sodium (Lisa-Colace) 1 tab PO BID [facility] Last Admin: 08/09/18 21:32 Dose: Not Given Sennosides (Senokot) 17.2 mg PO Q12H PRN PRN Reason: Moderate Constipation Sodium Chloride (Ns Flush) 2 ml IV.FLUSH BID [facility] Last Admin: 08/09/18 21:32 Dose: 2 ml Sodium Chloride (Ns Flush) 2 ml IV.FLUSH PRN PRN PRN Reason: FLUSH AFTER USING IV ACCESS Last Admin: 08/06/18 09:37 Dose: 2 ml Tamsulosin HCl (Flomax) 0.4 mg PO DAILY [facility] Last Admin: 08/09/18 08:55 Dose: 0.4 mg Allergies Allergy/AdvReac Type Severity Reaction Status Date / Time No Known Allergies Allergy Verified 08/02/18 03:15 Home Medications Medication Instructions Recorded Confirmed Type atenolol 25 mg PO DAILY 08/02/18 08/02/18 History chlorpheniramine maleate 4 mg PO Q4H 08/02/18 08/02/18 History [Chlor-Trimeton] metformin 1,000 mg PO BID 08/02/18 08/02/18 History pantoprazole [Protonix] 40 mg PO DAILY 08/02/18 08/02/18 History pioglitazone [Actos] 45 mg PO DAILY 08/02/18 08/02/18 History sitagliptin [Januvia] 100 mg PO DAILY 08/02/18 08/02/18 History tamsulosin 0.4 mg PO DAILY 08/02/18 08/02/18 History Physical Exam Vital signs: Vital Signs 08/09/18 01:00 08/09/18 02:00 08/09/18 02:01 Temperature Pulse Rate 68 69 64 Respiratory Rate 11 L 17 Blood Pressure 114/59 L 99/48 L Pulse Oximetry 95 96 96 08/09/18 03:00 08/09/18 04:00 08/09/18 04:01 Temperature 98.2 F Pulse Rate 68 66 65 Respiratory Rate 17 16 16 Blood Pressure 90/46 L 107/51 L 107/51 L Pulse Oximetry 96 98 98 08/09/18 05:00 08/09/18 05:01 08/09/18 06:00 Temperature Pulse Rate 75 65 Respiratory Rate 28 H 18 Blood Pressure 108/52 L 110/58 L Pulse Oximetry 97 98 95 08/09/18 07:00 08/09/18 08:00 08/09/18 08:04 Temperature 98.9 F Pulse Rate 66 86 85 Respiratory Rate 18 26 H 28 H Blood Pressure 95/54 L 107/60 107/60 Pulse Oximetry 95 99 08/09/18 09:00 08/09/18 09:03 08/09/18 10:00 Temperature Pulse Rate 92 H 93 H 107 H Respiratory Rate 36 H 24 29 H Blood Pressure 148/70 H 158/70 H Pulse Oximetry 08/09/18 11:00 08/09/18 11:01 08/09/18 12:00 Temperature 98.3 F Pulse Rate 87 90 85 Respiratory Rate 28 H 29 H 23 Blood Pressure 120/56 L 104/51 L Pulse Oximetry 95 08/09/18 12:26 08/09/18 12:45 08/09/18 13:00 Temperature 98.3 F 98.3 F Pulse Rate 83 85 93 H Respiratory Rate 20 18 29 H Blood Pressure 104/51 L 115/62 Pulse Oximetry 96 95 96 08/09/18 13:01 08/09/18 14:00 08/09/18 14:01 Temperature Pulse Rate 93 H 96 H 97 H Respiratory Rate 22 35 H 37 H Blood Pressure 118/57 L 115/62 Pulse Oximetry 95 93 L 94 L 08/09/18 14:25 08/09/18 14:33 08/09/18 14:51 Temperature 98.3 F 98.6 F 98.2 F Pulse Rate 83 82 72 Respiratory Rate 26 H 28 H Blood Pressure 109/60 115/60 116/60 Pulse Oximetry 95 94 L 95 08/09/18 15:00 08/09/18 15:42 08/09/18 16:00 Temperature 98.3 F 98.3 F Pulse Rate 91 H 79 78 Respiratory Rate 31 H 26 H 36 H Blood Pressure 111/68 111/68 120/56 L Pulse Oximetry 96 96 08/09/18 18:00 08/09/18 19:00 08/09/18 20:00 Temperature 98.7 F Pulse Rate 79 95 H Respiratory Rate 24 Blood Pressure 140/58 L Pulse Oximetry 99 98 08/09/18 20:28 08/09/18 22:00 08/09/18 23:45 Temperature Pulse Rate 72 Respiratory Rate Blood Pressure Pulse Oximetry 95 99 Intake & Output 08/09/18 08/09/18 08/10/18 06:59 18:59 06:59 Intake Total 1250 / 1250 1684 / 1684 Output Total 550 / 550 1325 / 1325 Balance 700 / 700 359 / 359 Weight 89 kg Intake: IV 900 / 900 200 / 200 Privigen Inj 90 GM In Bag/ 900 / 900 Syringe 1 EACH @ Per Protocol IV.SIG ONCE ONE Rx#:[id number] SoluMEDROL Inj 250 MG In NS Inj 100 / 100 96 ML @ 200 mls/hr IV.SIG DAILY MERON Rx#:[id number] NS Inj 250 ML @ 15 mls/hr IV. 100 / 100 SIG ONCE MERON Rx#:[id number] Oral 350 / 350 960 / 960 Other 220 / 220 Plt Pheresis B Leukoreduced 20 / 20 Unit [id number] Rbc As-3 Leukoreduced Unit 200 / 200 [id number] Intake (Blood Product) Amt 304 / 304 Plt Pheresis B Leukoreduced 304 / 304 Unit [id number] Rbc As-3 Leukoreduced Unit 0 / 0 [id number] Output: Urine 550 / 550 1325 / 1325 Other: Date of Last Bowel Movement 08/08/18 08/08/18 # Bowel Movements 1 0 Narrative: GENERAL: NAD, AAOx3 SKIN: Warm and dry. HEAD: Atraumatic. Normocephalic. EYES: Pupils equal and round. No scleral icterus. No injection or drainage. ENT: No nasal bleeding or discharge. Mucous membranes pink and moist. NECK: Trachea midline. No JVD. CARDIOVASCULAR: Regular rate and rhythm. RESPIRATORY: No accessory muscle use. Clear to auscultation. Breath sounds equal bilaterally. GASTROINTESTINAL: Abdomen soft, non-tender, nondistended. Hepatic and splenic margins not palpable. MUSCULOSKELETAL: Extremities without clubbing, cyanosis, or edema. No obvious deformities. NEUROLOGICAL: Awake and alert. No obvious cranial nerve deficits. Motor grossly within normal limits. Five out of 5 muscle strength in the arms and legs. Normal speech. PSYCHIATRIC: Appropriate mood and affect; insight and judgment normal. Results 08/09/18 16:17 08/09/18 05:23 Cardiac Enzymes 08/08/18 08/09/18 Range/Units 04:34 05:23 AST 45 H 44 H (15-37) U/L Lactate Dehydrogenase 271 H (87-241) U/L CBC 08/08/18 08/09/18 08/09/18 Range/Units 04:34 05:23 16:17 WBC 6.1 6.9 14.7 H D (4.0-11.0) th/mm3 RBC 2.73 L 2.38 L 2.68 L (4.50-5.90) mil/mm3 Hgb 7.8 L 6.9 L* 7.8 L (13.0-17.0) gm/dL Hct 23.7 L 20.2 L* 23.3 L (39.0-51.0) % Plt Count 14 L* D 13 L* 50 L D (150-450) th/mm3 Neut # (Auto) 4.9 6.0 (1.8-7.7) th/mm3 Lymph # (Auto) 0.7 L 0.5 L (1.0-4.8) th/mm3 Ada # (Auto) 0.5 0.4 (0.0-0.9) th/mm3 Eos # (Auto) 0.0 0.0 (0.0-0.4) th/mm3 Baso # (Auto) 0.0 0.0 (0.0-0.2) th/mm3 Comprehensive Metabolic Panel 08/08/18 08/09/18 Range/Units 04:34 05:23 Sodium 140 135 L (136-145) meq/L Potassium 4.2 D 3.9 (3.5-5.1) meq/L Chloride 105 102 (98-107) meq/L Carbon Dioxide 26.4 26.6 (21.0-32.0) meq/L BUN 28 H 30 H (7-18) mg/dL Creatinine 1.01 1.03 (0.60-1.30) mg/dL Calcium 8.1 L 7.6 L (8.5-10.1) mg/dL Direct Bilirubin 0.3 H (0.0-0.2) mg/dL Indirect Bilirubin 0.3 (0.0-0.8) mg/dL AST 45 H 44 H (15-37) U/L ALT 46 52 (12-78) U/L Alkaline Phosphatase 51 51 (45-117) U/L Total Protein 6.4 7.2 D (6.4-8.2) g/dL Albumin 2.6 L 2.1 L (3.4-5.0) g/dL Intake and Output 08/09/18 08/09/18 08/10/18 14:59 22:59 06:59 Intake Total 300 / 300 1384 / 1384 Output Total 1325 / 1325 Balance 300 / 300 59 / 59 Intake: IV 100 / 100 100 / 100 SoluMEDROL Inj 250 MG In NS Inj 100 / 100 96 ML @ 200 mls/hr IV.SIG DAILY [facility] Rx#:[id number] NS Inj 250 ML @ 15 mls/hr IV. 100 / 100 SIG ONCE MERON Rx#:[id number] Oral 960 / 960 Other 200 / 200 20 / 20 Plt Pheresis B Leukoreduced 20 / 20 Unit [id number] Rbc As-3 Leukoreduced Unit 200 / 200 [id number] Intake (Blood Product) Amt 0 / 0 304 / 304 Plt Pheresis B Leukoreduced 0 / 0 304 / 304 Unit [id number] Rbc As-3 Leukoreduced Unit 0 / 0 [id number] Output: Urine 1325 / 1325 Other: Date of Last Bowel Movement 08/08/18 # Bowel Movements 0 Assessment and Plan - Assessment (1) Cardiomyopathy Code(s): I42.9 - Cardiomyopathy, unspecified Status: Acute (2) Wide-complex tachycardia Code(s): I47.2 - Ventricular tachycardia Status: Acute (3) Atrial flutter Code(s): I48.92 - Unspecified atrial flutter Status: Acute (4) Hematochezia Code(s): K92.1 - Melena Status: Acute (5) Lower gastrointestinal hemorrhage Code(s): K92.2 - Gastrointestinal hemorrhage, unspecified Status: Acute (6) Anemia Code(s): D64.9 - Anemia, unspecified Status: Acute (7) Thrombocytopenia Code(s): D69.6 - Thrombocytopenia, unspecified Status: Acute (8) Acute GI bleeding Code(s): K92.2 - Gastrointestinal hemorrhage, unspecified Status: Acute - Plan 1) Cardiomyopathy Unsure of cause at this time Unable to undergo ischemic evaluation due to anemia/thrombocytopenia Con't medical management Atenolol changed to Coreg Lisinopril Will need repeat echo in 3 months while on medical management to evaluate ejection fraction Hx of prostate CA No chemotherapeutic agents that are cardiotoxic given Appears compensated May need Lasix with blood products if continually receiving Has been negative I/O 2) Wide complex tachycardia Asymptomatic Probable Aflutter with 2:1 with aberrancy Similar event on EKG from 11/2014 3) Atrial flutter Con't Coreg Not a candidate for anti-coagulation or ASA due to thrombocytopenia 4) Hx of Prostate cancer Received chemo and radiation 5) GI bleed Per GI
[2018-08-10] MEDS: Morphine Inj 4 MG/ML Vial IV.PUSH PRN (02:25)
[2018-08-10] MEDS: Acetaminophen 325 MG Tablet PO PRN (03:05)
[2018-08-10 04:10] LABS: Albumin 2.5 g/dL (3.4-5.0); Anion Gap 8 meq/L (5-15); Aspartate Aminotransferase 50 U/L (15-37); Blood Urea Nitrogen 27 mg/dL (7-18); Calcium 8.2 mg/dL (8.5-10.1); Carbon Dioxide 27.3 meq/L (21.0-32.0); Chloride 100 meq/L (98-107); Glomerular Filtration Rate 70 mL/min (>89); Glucose,Random 132 mg/dL (74-106); Magnesium 1.8 mg/dL (1.5-2.5)
[2018-08-10 04:11] LABS: Alanine Aminotransferase 60 U/L (12-78); Phosphorus 2.2 mg/dL (2.5-4.9)
[2018-08-10 04:13] LABS: Alkaline Phosphatase 63 U/L (45-117); Total Protein 7.7 g/dL (6.4-8.2)
[2018-08-10 04:14] LABS: Sodium 135 meq/L (136-145)
[2018-08-10] MEDS: Pantoprazole Inj 40 MG Vial IV.PUSH SCH ×2 (06:54→16:54)
[2018-08-10] MEDS: Polyethylene Glycol 3350 17 GM Packet PO SCH (08:27)
[2018-08-10] MEDS: Senna/Docusate Sodium 8.6/50 MG Tablet PO SCH ×2 (08:27→21:27)
[2018-08-10] MEDS: Lisinopril 5 MG Tablet PO SCH (08:27)
[2018-08-10] MEDS: METHYLPREDNISOLONE SOD SUC IV.SIG SCH (08:27)
[2018-08-10] MEDS: SODIUM CHLOR 0.9% IV.SIG SCH (08:27)
[2018-08-10] MEDS: Nystatin/Diphenhydramine/Lidocaine Mouthwash (Adult) 120 ML Botttle SWISH-SWAL SCH ×3 (08:28→20:08)
[2018-08-10] MEDS: Insulin Detemir Inj 1,000 UNIT/10 ML Vial SQ SCH ×2 (08:29→21:26)
[2018-08-10] MEDS: Insulin NovoLOG Aspart Correctional Sugar Inj SQ SCH ×4 (08:30→21:27)
--- NOTE | 2018-08-10 11:12 | P.PNGI ---
Subjective Interval history: Patient sitting up in bed, awake alert. Reports generalized pain in both shoulders. States tolerating diet well, denies nausea or vomiting. Denies any abdominal pain. Nurse reports patient had soft stool smear with scant bright red blood noted on tissue. Physical Exam Vital signs: Vital Signs 08/09/18 12:00 08/09/18 12:26 08/09/18 12:45 Temperature 98.3 F 98.3 F 98.3 F Pulse Rate 85 83 85 Respiratory Rate 23 20 18 Blood Pressure 104/51 L 104/51 L 115/62 Pulse Oximetry 95 96 95 08/09/18 13:00 08/09/18 13:01 08/09/18 14:00 Temperature Pulse Rate 93 H 93 H 96 H Respiratory Rate 29 H 22 35 H Blood Pressure 118/57 L Pulse Oximetry 96 95 93 L 08/09/18 14:01 08/09/18 14:25 08/09/18 14:33 Temperature 98.3 F 98.6 F Pulse Rate 97 H 83 82 Respiratory Rate 37 H 26 H Blood Pressure 115/62 109/60 115/60 Pulse Oximetry 94 L 95 94 L 08/09/18 14:51 08/09/18 15:00 08/09/18 15:42 Temperature 98.2 F 98.3 F Pulse Rate 72 91 H 79 Respiratory Rate 28 H 31 H 26 H Blood Pressure 116/60 111/68 111/68 Pulse Oximetry 95 96 08/09/18 16:00 08/09/18 17:00 08/09/18 18:00 Temperature 98.3 F Pulse Rate 78 75 79 Respiratory Rate 36 H 32 H 23 Blood Pressure 120/56 L 123/58 L 112/53 L Pulse Oximetry 96 96 08/09/18 19:00 08/09/18 20:00 08/09/18 20:12 Temperature 98.7 F Pulse Rate 84 95 H 79 Respiratory Rate 43 H 53 H 34 H Blood Pressure 121/57 L 140/58 L 140/58 L Pulse Oximetry 98 98 99 08/09/18 20:28 08/09/18 21:00 08/09/18 21:01 Temperature Pulse Rate 77 74 Respiratory Rate 40 H 39 H Blood Pressure 112/58 L Pulse Oximetry 95 97 95 08/09/18 22:00 08/09/18 22:01 08/09/18 23:00 Temperature Pulse Rate 72 73 69 Respiratory Rate 19 20 19 Blood Pressure 105/54 L 112/52 L Pulse Oximetry 96 96 94 L 08/09/18 23:45 08/10/18 00:00 08/10/18 01:00 Temperature 98 F Pulse Rate 72 78 Respiratory Rate 38 H 24 Blood Pressure 119/58 L 125/58 L Pulse Oximetry 99 97 92 L 08/10/18 02:00 08/10/18 02:58 08/10/18 03:00 Temperature Pulse Rate 83 79 Respiratory Rate 19 24 22 Blood Pressure 138/65 126/58 L Pulse Oximetry 98 97 08/10/18 04:00 08/10/18 05:00 08/10/18 06:00 Temperature 97.6 F Pulse Rate 87 80 84 Respiratory Rate 19 36 H 19 Blood Pressure 166/73 H 139/63 153/69 H Pulse Oximetry 92 L 96 90 L 08/10/18 07:00 08/10/18 08:00 08/10/18 09:00 Temperature 98.6 F Pulse Rate 88 90 88 Respiratory Rate 30 H 22 26 H Blood Pressure 133/56 L 123/56 L Pulse Oximetry 94 L 94 L 95 08/10/18 09:03 08/10/18 10:00 08/10/18 10:01 Temperature Pulse Rate 91 H 92 H 93 H Respiratory Rate 24 24 29 H Blood Pressure 129/61 107/56 L Pulse Oximetry 95 96 96 Intake & Output 08/09/18 08/10/18 08/10/18 18:59 06:59 18:59 Intake Total 1684 / 1684 350 / 350 Output Total 1325 / 1325 1600 / 1600 Balance 359 / 359 -1250 / -1250 Weight 87.5 kg Intake: IV 200 / 200 SoluMEDROL Inj 250 MG In NS Inj 100 / 100 96 ML @ 200 mls/hr IV.SIG DAILY MERON Rx#:[id number] NS Inj 250 ML @ 15 mls/hr IV. 100 / 100 SIG ONCE MERON Rx#:[id number] Oral 960 / 960 350 / 350 Other 220 / 220 Plt Pheresis B Leukoreduced 20 / 20 Unit [id number] Rbc As-3 Leukoreduced Unit 200 / 200 [id number] Intake (Blood Product) Amt 304 / 304 Plt Pheresis B Leukoreduced 304 / 304 Unit [id number] Rbc As-3 Leukoreduced Unit 0 / 0 [id number] Output: Urine 1325 / 1325 1600 / 1600 Stool 0 / 0 Urine/Stool Mix 0 / 0 Other: # Voids 5 # Incontinent Voids 0 Date of Last Bowel Movement 08/09/18 08/09/18 # Bowel Movements 0 0 # Incontinent Bowel Movements 0 - Constitutional no acute distress - Routine HEENT Exam Head: Present: normocephalic - Routine Respiratory Exam Present: CTA bilaterally. Absent: accessory muscle use - Routine Abdominal Exam Present: soft, normoactive bowel sounds. Absent: tenderness, guarding, firm - Routine Extremities Exam Present: full ROM, pulses intact. Absent: edema - Routine Skin Exam Present: dry, pallor, warm - Routine Neurological Exam Present: alert - Routine Psychiatric Exam Present: normal affect, cooperative Results - Labs CBC & Chem 7: 08/09/18 16:17 08/10/18 03:22 Laboratory Results - last 24 hr 08/02/18 08/09/18 08/09/18 04:15 10:00 10:00 WBC RBC Hgb Hct MCV MCH MCHC RDW Plt Count MPV Sodium Potassium Chloride Carbon Dioxide Anion Gap BUN Creatinine Estimated GFR POC Glucose Random Glucose Calcium Phosphorus Magnesium Iron 42 L TIBC 386 % Saturation 10.9 L Ferritin 42 Total Bilirubin AST ALT Alkaline Phosphatase Total Protein Albumin Blood Type O Positive Antibody Screen Negative MTS Gel Crossmatch See Detail See Detail Bld Prod Order Comment 08/09/18 08/09/18 08/09/18 12:08 16:17 16:46 WBC 14.7 H D RBC 2.68 L Hgb 7.8 L Hct 23.3 L MCV 87.2 MCH 29.1 MCHC 33.4 RDW 16.8 Plt Count 50 L D MPV 8.2 Sodium Potassium Chloride Carbon Dioxide Anion Gap BUN Creatinine Estimated GFR POC Glucose 392 H 324 H Random Glucose Calcium Phosphorus Magnesium Iron TIBC % Saturation Ferritin Total Bilirubin AST ALT Alkaline Phosphatase Total Protein Albumin Blood Type Antibody Screen MTS Gel Crossmatch Bld Prod Order Comment 08/09/18 08/10/18 08/10/18 21:17 03:22 08:25 WBC RBC Hgb Hct MCV MCH MCHC RDW Plt Count MPV Sodium 135 L Potassium 4.0 Chloride 100 Carbon Dioxide 27.3 Anion Gap 8 BUN 27 H Creatinine 1.02 Estimated GFR 70 L POC Glucose 310 H 94 Random Glucose 132 H Calcium 8.2 L Phosphorus 2.2 L Magnesium 1.8 Iron TIBC % Saturation Ferritin Total Bilirubin 0.8 AST 50 H ALT 60 Alkaline Phosphatase 63 Total Protein 7.7 Albumin 2.5 L Blood Type Antibody Screen MTS Gel Crossmatch Bld Prod Order Comment Assessment and Plan - Plan Bright red blood per rectum No more bleeding since yesterday afternoon. hgb today 8.1. Received 5 units of blood Has never had an EGD or colonoscopy. Denies taking any blood thinners. 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 Prostate cancer status post 45 treatments of radiation completed in July 2017 and patient reports once a month injections that he finished in April of this year. Thrombocytopeniaplatelet count currently 16. Patient does have history of thrombocytopenia but has never been this low according to previous chart review. States that he has not seen a adjuster leader or oncologist in the past. Oncology on the case, plt today is 16 s/p 4 units of plt IV steroids, status post immunoglobulin on 08/04/2018. ? Ritxuan/Cytoxan 08/07/2018 patient continues in the intensive care setting, maroon stool x1, no further bleeding today. Hemoglobin appears stable at 8. Patient talkative and appears slightly anxious and overwhelmed by his current condition. States he never had any heart problems before. Currently has no nausea no vomiting no abdominal pain and no abdominal cramping. Discussed with patient possible colonoscopy when he is more stable and feeling better, platelet count 28, mild gradual trend up. Status post prostate cancer with radiation, which could contribute to patient's thrombocytopenia. Will continue HC suppositories for now to assist with any proctitis. Explained to patient 08/08/2018 patient is sitting up in a chair and appears more alert today. Denies any abdominal pain but questionable constipation. Patient notes small bowel movement yesterday and is sometimes incontinent in the bed with stool but minimal amount. Discussed with patient the need for bowel regimen and no straining at this time since he had bright red rectal bleeding initially. Patient's platelet count has declined again today to 14, hemoglobin is 7.8 from last check of 8. Albumin 2.6, bilirubin and LFTs unremarkable for now. No further rectal bleeding at this time. 08/09/2018 patient has decrease in hemoglobin again today 6.91 unit of packed RBCs and 1 unit of platelets is pending currently has continued to have decrease in platelet count again 13 this a.m. stool within the past 24 hours did have some blood surrounding and patient states small amount of blood when wiping. Still requesting that suppositories are aggravating and could be causing more irritation on insertion. Will discontinue for now May consider sigmoidoscopy with [facility] if patient continues to have rectal bleeding possibly hemorrhoid related. Will monitor platelet level in a.m. 08/10/2018 08/09/2018 hemoglobin 7.8 hematocrit 23.3 platelet count 50, today's hematology specimen pending. We will continue to monitor platelet level in order to proceed with GI intervention. Nurse reports patient had small amount of blood noted on tissue after BM this a.m. Plan -Cardiac diet -Continue Zofran and PPI -Bowel regimen -Monitor for any active bleeding-considering sigmoidoscopy with [facility] or colonoscopy and platelet count around 50 or greater. -Monitor labs -Transfuse as needed -Supportive care -Further recommendations to follow based on patient status and findings Patient was seen per myself and Dr. Ambrocio, note was written on her behalf - Attending Attestation
[2018-08-10 13:10] LABS: ABG Base Excess 1.3 mmol/L (-2-2); ABG PCO2 34 mmHg (38-42); ABG PO2 72 mmHG (61-120)
[2018-08-10 14:08] LABS: Baso % (Auto) 0.1 % (0.0-2.0); Hematocrit 24.6 % (39.0-51.0); Lymph # (Auto) 0.3 th/mm3 (1.0-4.8); Lymph % (Auto) 1.7 % (9.0-44.0); Mean Corpuscular HGB Conc 32.4 % (32.0-36.0); Mean Corpuscular Hemoglobin 28.1 pg (27.0-34.0); Mean Corpuscular Volume 86.8 fL (80.0-100.0); Mean Platelet Volume 10.6 fL (7.0-11.0); Mono % (Auto) 5.3 % (0.0-8.0); Neut # (Auto) 16.6 th/mm3 (1.8-7.7); Neut % (Auto) 92.9 % (16.0-70.0); Platelet Count 20 th/mm3 (150-450); Red Blood Count 2.83 mil/mm3 (4.50-5.90); Red Cell Distribution Width 16.9 % (11.6-17.2); White Blood Count 17.9 th/mm3 (4.0-11.0)
--- NOTE | 2018-08-10 14:18 | P.PNONC ---
Subjective Interval history: Late entry: Patient seen earlier this a.m. Patient sleeping on approach, awakens briefly and says hello. Objective Vital Signs/Intake & Output: Vital Signs 08/09/18 14:25 08/09/18 14:33 08/09/18 14:51 Temperature 98.3 F 98.6 F 98.2 F Pulse Rate 83 82 72 Respiratory Rate 26 H 28 H Blood Pressure 109/60 115/60 116/60 Pulse Oximetry 95 94 L 95 08/09/18 15:00 08/09/18 15:42 08/09/18 16:00 Temperature 98.3 F 98.3 F Pulse Rate 91 H 79 78 Respiratory Rate 31 H 26 H 36 H Blood Pressure 111/68 111/68 120/56 L Pulse Oximetry 96 96 08/09/18 17:00 08/09/18 18:00 08/09/18 19:00 Temperature Pulse Rate 75 79 84 Respiratory Rate 32 H 23 43 H Blood Pressure 123/58 L 112/53 L 121/57 L Pulse Oximetry 96 98 08/09/18 20:00 08/09/18 20:12 08/09/18 20:28 Temperature 98.7 F Pulse Rate 95 H 79 Respiratory Rate 53 H 34 H Blood Pressure 140/58 L 140/58 L Pulse Oximetry 98 99 95 08/09/18 21:00 08/09/18 21:01 08/09/18 22:00 Temperature Pulse Rate 77 74 72 Respiratory Rate 40 H 39 H 19 Blood Pressure 112/58 L Pulse Oximetry 97 95 96 08/09/18 22:01 08/09/18 23:00 08/09/18 23:45 Temperature Pulse Rate 73 69 Respiratory Rate 20 19 Blood Pressure 105/54 L 112/52 L Pulse Oximetry 96 94 L 99 08/10/18 00:00 08/10/18 01:00 08/10/18 02:00 Temperature 98 F Pulse Rate 72 78 83 Respiratory Rate 38 H 24 19 Blood Pressure 119/58 L 125/58 L 138/65 Pulse Oximetry 97 92 L 98 08/10/18 02:58 08/10/18 03:00 08/10/18 04:00 Temperature 97.6 F Pulse Rate 79 87 Respiratory Rate 24 22 19 Blood Pressure 126/58 L 166/73 H Pulse Oximetry 97 92 L 08/10/18 05:00 08/10/18 06:00 08/10/18 07:00 Temperature Pulse Rate 80 84 88 Respiratory Rate 36 H 19 30 H Blood Pressure 139/63 153/69 H 133/56 L Pulse Oximetry 96 90 L 94 L 08/10/18 08:00 08/10/18 09:00 08/10/18 09:03 Temperature 98.6 F Pulse Rate 90 88 91 H Respiratory Rate 22 26 H 24 Blood Pressure 123/56 L 129/61 Pulse Oximetry 94 L 95 95 08/10/18 10:00 08/10/18 10:01 08/10/18 11:00 Temperature Pulse Rate 92 H 93 H 72 Respiratory Rate 24 29 H 35 H Blood Pressure 107/56 L 91/52 L Pulse Oximetry 96 96 94 L 08/10/18 12:00 08/10/18 13:00 08/10/18 13:01 Temperature 98.8 F Pulse Rate 68 75 75 Respiratory Rate 31 H 24 20 Blood Pressure 94/52 L 120/59 L Pulse Oximetry 94 L 97 97 08/10/18 14:00 Temperature Pulse Rate 78 Respiratory Rate Blood Pressure Pulse Oximetry Intake & Output 08/09/18 08/10/18 08/10/18 18:59 06:59 18:59 Intake Total 1684 / 1684 350 / 350 Output Total 1325 / 1325 1600 / 1600 Balance 359 / 359 -1250 / -1250 Weight 87.5 kg Intake: IV 200 / 200 SoluMEDROL Inj 250 MG In NS Inj 100 / 100 96 ML @ 200 mls/hr IV.SIG DAILY MERON Rx#:[id number] NS Inj 250 ML @ 15 mls/hr IV. 100 / 100 SIG ONCE MERON Rx#:[id number] Oral 960 / 960 350 / 350 Other 220 / 220 Plt Pheresis B Leukoreduced 20 / 20 Unit [id number] Rbc As-3 Leukoreduced Unit 200 / 200 [id number] Intake (Blood Product) Amt 304 / 304 Plt Pheresis B Leukoreduced 304 / 304 Unit [id number] Rbc As-3 Leukoreduced Unit 0 / 0 [id number] Output: Urine 1325 / 1325 1600 / 1600 Stool 0 / 0 Urine/Stool Mix 0 / 0 Other: # Voids 5 # Incontinent Voids 0 Date of Last Bowel Movement 08/09/18 08/09/18 # Bowel Movements 0 0 # Incontinent Bowel Movements 0 Result Diagrams: 08/09/18 16:17 08/10/18 03:22 Laboratory Results: Laboratory Results - last 24 hr 08/09/18 08/09/18 08/09/18 10:00 16:17 16:46 WBC 14.7 H D RBC 2.68 L Hgb 7.8 L Hct 23.3 L MCV 87.2 MCH 29.1 MCHC 33.4 RDW 16.8 Plt Count 50 L D MPV 8.2 Puncture Site Patient Temperature O2 Saturation ABG pH ABG pCO2 ABG pO2 ABG HCO3 ABG O2 Content ABG Base Excess ABG Methemoglobin Abhijeet Test Hemoglobin Carboxyhemoglobin Inspired O2 Critical Value Sodium Potassium Chloride Carbon Dioxide Anion Gap BUN Creatinine Estimated GFR POC Glucose 324 H Random Glucose Calcium Phosphorus Magnesium Total Bilirubin AST ALT Alkaline Phosphatase Total Protein Albumin Blood Type O Positive Antibody Screen Negative MTS Gel Crossmatch See Detail Bld Prod Order Comment 08/09/18 08/10/18 08/10/18 21:17 03:22 08:25 WBC RBC Hgb Hct MCV MCH MCHC RDW Plt Count MPV Puncture Site Patient Temperature O2 Saturation ABG pH ABG pCO2 ABG pO2 ABG HCO3 ABG O2 Content ABG Base Excess ABG Methemoglobin Abhijeet Test Hemoglobin Carboxyhemoglobin Inspired O2 Critical Value Sodium 135 L Potassium 4.0 Chloride 100 Carbon Dioxide 27.3 Anion Gap 8 BUN 27 H Creatinine 1.02 Estimated GFR 70 L POC Glucose 310 H 94 Random Glucose 132 H Calcium 8.2 L Phosphorus 2.2 L Magnesium 1.8 Total Bilirubin 0.8 AST 50 H ALT 60 Alkaline Phosphatase 63 Total Protein 7.7 Albumin 2.5 L Blood Type Antibody Screen MTS Gel Crossmatch Bld Prod Order Comment 08/10/18 08/10/18 13:02 13:03 WBC RBC Hgb Hct MCV MCH MCHC RDW Plt Count MPV Puncture Site Right radial Patient Temperature 98.6 O2 Saturation 92 ABG pH 7.47 H ABG pCO2 34 L ABG pO2 72 ABG HCO3 25 ABG O2 Content 10.7 L ABG Base Excess 1.3 ABG Methemoglobin 1.7 Abhijeet Test Present Hemoglobin 8.2 L Carboxyhemoglobin 2.0 Inspired O2 21 Critical Value No Sodium Potassium Chloride Carbon Dioxide Anion Gap BUN Creatinine Estimated GFR POC Glucose 367 H Random Glucose Calcium Phosphorus Magnesium Total Bilirubin AST ALT Alkaline Phosphatase Total Protein Albumin Blood Type Antibody Screen MTS Gel Crossmatch Bld Prod Order Comment Medications: Active Medications Generic Name Dose Route Start Last Admin Trade Name Freq PRN Reason Stop Dose Admin Acetaminophen 650 mg 08/02/18 04:18 08/10/18 03:05 Tylenol PO 650 mg Q6H PRN Administration PAIN 1-10 AND/OR FEVER >101F Carvedilol 3.125 mg 08/05/18 09:00 08/10/18 08:27 Coreg PO 3.125 mg BID MERON Administration Potassium Chloride 20 meq in 100 mls @ 50 mls/hr 08/05/18 08:03 08/05/18 17: 14 Kcl 20 Meq Premix Inj IV.SIG Infused Q2H PRN Infusion For Potassium 2.8 - 3.2 mEq/L Potassium Phosphate 30 mmol/ 260 mls @ 42 mls/hr 08/05/18 08:03 08/07/18 11: 42 Sodium Chloride IV.SIG Infused UNSCH PRN Infusion SEE LABEL COMMENTS Methylprednisolone Sodium 100 mls @ 200 mls/hr 08/07/18 09:00 08/10/18 08:27 Succinate 250 mg/ Sodium IV.SIG 200 mls/hr Chloride DAILY MERON Administration Insulin Aspart 0 unit 08/08/18 12:00 08/10/18 13:45 Novolog Insulin Correctional Sugar Inj SQ 25 unit ACHS MERON Administration Protocol Insulin Detemir 18 unit 08/08/18 21:00 08/10/18 08:29 Levemir Inj SQ 18 unit BID MERON Administration Lisinopril 2.5 mg 08/05/18 09:00 08/10/18 08:27 Prinivil PO 2.5 mg DAILY MERON Administration Morphine Sulfate 2 mg 08/02/18 04:18 08/10/18 02:25 Morphine Inj IV.PUSH 2 mg Q2H PRN Administration PAIN SCALE 6 TO 10 Multi-Ingredient Mouthwash/Gargle 10 ml 08/08/18 18:00 08/10/18 13:46 Magic Mouthwash Adult Liq SWISH-SWAL 10 ml QID MERON Administration Pantoprazole Sodium 40 mg 08/02/18 05:00 08/10/18 06:54 Protonix Inj IV.PUSH 40 mg Q12H MERON Administration Polyethylene Glycol 17 gm 08/08/18 11:45 08/10/18 08:27 Miralax PO 17 gm DAILY MERON Administration Potassium Bicarb/Potassium Chloride 50 meq 08/05/18 08:43 08/07/18 22:30 K-Lyte Cl Eff PO 50 meq UNSCH PRN Administration For Potassium 3.3 - 3.5 mEq/L Potassium Phosphate 2,000 mg 08/05/18 08:03 08/06/18 15:48 K-Phos Original PO 2,000 mg Q4H PRN Administration Phosphorus Less Than 2.5 mg/dL Romiplostim 89 mcg 08/09/18 10:00 08/09/18 09:40 Nplate Inj SQ 89 mcg Q7D MREON Administration Senna/Docusate Sodium 1 tab 08/02/18 09:00 08/10/18 08:27 Lisa-Colace PO 1 tab BID MERON Administration Sodium Chloride 2 ml 08/02/18 09:00 08/10/18 08:28 Ns Flush IV.FLUSH 2 ml BID MERON Administration Sodium Chloride 2 ml 08/02/18 04:18 08/06/18 09:37 Ns Flush IV.FLUSH 2 ml PRN PRN Administration FLUSH AFTER USING IV ACCESS Tamsulosin HCl 0.4 mg 08/02/18 09:00 08/10/18 08:29 Flomax PO 0.4 mg DAILY MERON Administration Objective Remarks: GENERAL: Ill-appearing elderly male patient, in no acute distress. SKIN: Pale, warm and dry. Bruises to bilateral arms.. 1x1 drsg to LUE, dry/ intact. HEAD: Normocephalic. EYES: No scleral icterus. No injection or drainage. NECK: Supple, trachea midline. CARDIOVASCULAR: Regular rate and rhythm without murmurs. RESPIRATORY: Breath sounds clear, equal bilaterally. Nonlabored at rest. GASTROINTESTINAL: Abdomen soft, distended, non-tender. EXTREMITIES: No cyanosis, or edema. MUSCULOSKELETAL: Decreased muscle tone. NEUROLOGICAL: No obvious focal deficit. Sleeping, awakens briefly and says hello. Assessment/Plan - Plan Mr. Butterfield is a pleasant 83-year-old male patient who is currently hospitalized for a GI bleed. Hematology was consulted for severe thrombocytopenia. 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 Plan: 1. Acute ITP. Continue IV steroids, status post immunoglobulin on 08/04 & . Status post 1 unit of RBCs and platelets yesterday. CBC pending today. 2. GI bleed, management per gastroenterology. Hemoglobin trended down to 6.9 yesterday. Awaiting CBC today. 3. Thrush, continue Magic mouthwash. 4. Repeat CBC in the a.m.
[2018-08-10 14:44] LABS: Ovalocytes 1+; Platelet Morphology Normal (Normal)
--- NOTE | 2018-08-10 14:47 | P.PNCC ---
Subjective Subjective Remarks/Hospital Course: 83-year-old very pleasant gentleman with history of prostate cancer on hormonal therapy with the last course received in end of May, presents with generalized weakness and gross blood on rectal exam with very loose watery blood. Patient initially was hypotensive prior to arrival with the blood pressure 80/50, after liter of fluid prior to arrival by EVAC the patient's blood pressure now 120/59. Laboratory abnormalities notable for a platelet count of 7000, hemoglobin of 7.1. These are critical levels and a 6 pack of platelets as well as 2 PRBCs now and 2 in reserve been ordered by ED attending, as well as Protonix drip, and octreotide. The patient does have a history of prostate cancer, he has been on Firmagon from his urology/oncologist. 08/03 Patient is lying in bed in NAD. s/p 2u PLT and 2u PRBC yesterday PLT 5 this morning. 08/04 No events overnight. s/p transfusion 1u PLT and 1 u PRBC yesterday PLT count 14 last night from 5. 08/05 Patient s/p transfusion 2u PRBC and 1u PLT since yesterday. Afebrile. PLT count 16 last night. 08/06 Patient seems confused and agitated this morning however he is awake and oriented to time and place. Afebrile. 08/07 Patient is lying in bed in NAD. PLT 28 this morning. 08/08: Resting in bed and somewhat confused and depressed that his platelets continue to drop. Plates were 14 this morning. He will remain stable. Tolerating diet. SUBJECTIVE 08/09: Resting in bed. Less confused this a.m. Complaining of hematomas from blood draws. Being transfused 1 PRBC and 1 platelets today. Received IVIG yesterday at this hospital does not have RhoGam available 08/10: more somnolent today, but non-focal. still arouses to voice and is appropriate. more fatigued today. hgb stable. abg normal. obtained non- contrasted head CT given severe thrombocytopenia: negative for acute bleed. plt down to 20k today: giving 1 unit. ROS otherwise negative except for fatigue. Objective Vital Signs / I&O: Vital Signs 08/09/18 14:51 08/09/18 15:00 08/09/18 15:42 Temperature 36.8 C 36.8 C Pulse Rate 72 91 H 79 Respiratory Rate 28 H 31 H 26 H Blood Pressure 116/60 111/68 111/68 Pulse Oximetry 95 96 08/09/18 16:00 08/09/18 17:00 08/09/18 18:00 Temperature 36.8 C Pulse Rate 78 75 79 Respiratory Rate 36 H 32 H 23 Blood Pressure 120/56 L 123/58 L 112/53 L Pulse Oximetry 96 96 08/09/18 19:00 08/09/18 20:00 08/09/18 20:12 Temperature 37.1 C Pulse Rate 84 95 H 79 Respiratory Rate 43 H 53 H 34 H Blood Pressure 121/57 L 140/58 L 140/58 L Pulse Oximetry 98 98 99 08/09/18 20:28 08/09/18 21:00 08/09/18 21:01 Temperature Pulse Rate 77 74 Respiratory Rate 40 H 39 H Blood Pressure 112/58 L Pulse Oximetry 95 97 95 08/09/18 22:00 08/09/18 22:01 08/09/18 23:00 Temperature Pulse Rate 72 73 69 Respiratory Rate 19 20 19 Blood Pressure 105/54 L 112/52 L Pulse Oximetry 96 96 94 L 08/09/18 23:45 08/10/18 00:00 08/10/18 01:00 Temperature 36.6 C Pulse Rate 72 78 Respiratory Rate 38 H 24 Blood Pressure 119/58 L 125/58 L Pulse Oximetry 99 97 92 L 08/10/18 02:00 08/10/18 02:58 08/10/18 03:00 Temperature Pulse Rate 83 79 Respiratory Rate 19 24 22 Blood Pressure 138/65 126/58 L Pulse Oximetry 98 97 08/10/18 04:00 08/10/18 05:00 08/10/18 06:00 Temperature 36.4 C Pulse Rate 87 80 84 Respiratory Rate 19 36 H 19 Blood Pressure 166/73 H 139/63 153/69 H Pulse Oximetry 92 L 96 90 L 08/10/18 07:00 08/10/18 08:00 08/10/18 09:00 Temperature 37.0 C Pulse Rate 88 90 88 Respiratory Rate 30 H 22 26 H Blood Pressure 133/56 L 123/56 L Pulse Oximetry 94 L 94 L 95 08/10/18 09:03 08/10/18 10:00 08/10/18 10:01 Temperature Pulse Rate 91 H 92 H 93 H Respiratory Rate 24 24 29 H Blood Pressure 129/61 107/56 L Pulse Oximetry 95 96 96 08/10/18 11:00 08/10/18 12:00 08/10/18 13:00 Temperature 37.1 C Pulse Rate 72 68 75 Respiratory Rate 35 H 31 H 24 Blood Pressure 91/52 L 94/52 L Pulse Oximetry 94 L 94 L 97 08/10/18 13:01 08/10/18 14:00 Temperature Pulse Rate 75 78 Respiratory Rate 20 Blood Pressure 120/59 L Pulse Oximetry 97 Intake & Output 08/09/18 08/10/18 08/10/18 18:59 06:59 18:59 Intake Total 1684 / 1684 350 / 350 Output Total 1325 / 1325 1600 / 1600 Balance 359 / 359 -1250 / -1250 Weight 87.5 kg Intake: IV 200 / 200 SoluMEDROL Inj 250 MG In NS Inj 100 / 100 96 ML @ 200 mls/hr IV.SIG DAILY MERON Rx#:[id number] NS Inj 250 ML @ 15 mls/hr IV. 100 / 100 SIG ONCE MERON Rx#:[id number] Oral 960 / 960 350 / 350 Other 220 / 220 Plt Pheresis B Leukoreduced 20 / 20 Unit [id number] Rbc As-3 Leukoreduced Unit 200 / 200 [id number] Intake (Blood Product) Amt 304 / 304 Plt Pheresis B Leukoreduced 304 / 304 Unit [id number] Rbc As-3 Leukoreduced Unit 0 / 0 [id number] Output: Urine 1325 / 1325 1600 / 1600 Stool 0 / 0 Urine/Stool Mix 0 / 0 Other: # Voids 5 # Incontinent Voids 0 Date of Last Bowel Movement 08/09/18 08/09/18 # Bowel Movements 0 0 # Incontinent Bowel Movements 0 Result Diagrams: 08/10/18 13:08 08/10/18 03:22 Objective Remarks: GENERAL: Patient is 83 yo lying in bed in NAD SKIN: Warm and dry. Multiple ecchymoses bilateral upper extremities HEAD: Normocephalic. EYES: No scleral icterus. No injection or drainage. NECK: Supple, trachea midline. No JVD. CARDIOVASCULAR: IRR. afib. RESPIRATORY: equal chest rise. No accessory muscle use. GASTROINTESTINAL: Abdomen soft, non-tender, nondistended. MUSCULOSKELETAL: No significant peripheral edema. Neuro: RASS -1. somewhat somnolent but arouses to voice and follows commands. no focal deficits. sensation grossly intact. WENDY 5/5 in all 4 extremities. Assessment and Plan - Assessment and Plan Plan: Severe thrombocytopenia - ITP Acute normocytic anemia ? GI bleed Hyperglycemia Hx DM Hx Prostate ca s/p radiation tx. Proctitis per CT abd. Acute systolic heart failure Atrial flutter Elevated AST Hypoalbuminemia Plan Neuro: head CT 08/10: negative acute bleed. unclear etiology of somnolence, but awakens to voice and is neuro intact. Monitor neuro status and avoid sedatives. CT brain: No acute findings Pulm: Continue with Oxygen keep sats >92% Albuterol/ipratropium aerosols every 6 hours with albuterol aerosols every 2 hours as needed dyspnea CV: Monitor HR and BP keep MAP>65mmHg Echo showed severe LV dysfunction with EF 30-35% Continue Lisinopril 2.5mg daily and carvedilol 3.125mg BID. Not a candidate for ASA or systemic anticoagulation due to severe thrombocytopenia Cards has intermittently followed-Dr. Nation : Monitor renal function, I/O's, electrolytes replacement per protocol. Continue tamsulosin 0.4 mg daily GI: On PO cardiac diet. IV pantoprazole 40mg BID GI is following. On Hydrocortisone supp BID. Possible colonoscopy in future when stable ID: Monitor for signs of infections ( fever, WBC) Panculture if spikes a fever Heme: Monitor CBC, coags, s/p transfusion 6u PRBC and 5 u PLT since admission: 1 more unit plt today for 20k. Hematology is following- 08/08 and received IVIG on methylprednisolone succinate 250mg IV Q24, s/p IgG for ITP completed 08/04. Haptoglobin was 117. LDH was elevated to 71. UA negative for hemolysis. Endo: On high SSI for glycemic control, insulin detemir 18u BID DVT GI prophylaxis -Teds SCDs -No pharmacological DVT prophylaxis due to severe thrombocytopenia and GI bleed -Pantoprazole IV twice daily stable to transfer out of ICU to step-down unit.
--- NOTE | 2018-08-10 15:01 | CT ---
EXAM DATE: 08/10/2018 1:58 PM EDT AGE/SEX: 83 years / Male INDICATIONS: Altered mental status. CLINICAL DATA: This is the patient's subsequent encounter. Patient reports that signs and symptoms h ave been present for 1 week and indicates a pain score of 0/10. MEDICAL/SURGICAL HISTORY: Diabetes. None. RADIATION DOSE: 48.37 CTDI (mGy) ; Patient motion COMPARISON: [facility] [place], CT HEAD W/O CONTRAST, 08/02/2018. . TECHNIQUE: CT of the head without contrast. Using automated exposure control and adjustment of the mA and/or kV according to patient size, radiation dose was kept as low as reasonably achievable to ob tain optimal diagnostic quality images. DICOM format image data is available electronically for revi ew and comparison. FINDINGS: There is mild prominence of the CSF spaces as before. No signs of intracranial hemorrhage, mass or in farct. No fractures. CONCLUSION: 1. Negative CT Head non contrast. . Electronically signed by: Ramone Washington MD 08/10/2018 3:00 PM EDT
[2018-08-10] MEDS ORDERED: Sodium Chlor 0.9% Inj 250 ML IV.SIG SCH (16:00)
--- NOTE | 2018-08-10 23:28 | P.PNCA ---
Subjective Interval history: No events overnight More somnolent today Medications and Allergies Active Medications: Active Medications Acetaminophen (Tylenol) 650 mg PO Q6H PRN PRN Reason: PAIN 1-10 AND/OR FEVER >101F Last Admin: 08/10/18 03:05 Dose: 650 mg Al Hydroxide/Mg Hydroxide (Milk Of Magnalbert Liq) 30 ml PO Q12H PRN PRN Reason: Mild Constipation Albuterol (Albuterol Neb (Prn)) 2.5 mg NEB Q2HR NEB PRN PRN Reason: DYSPNEA Carvedilol (Coreg) 3.125 mg PO BID MERON Last Admin: 08/10/18 21:26 Dose: 3.125 mg Dextrose (D50w Vial) 50 ml IV.PUSH UNSCH PRN PRN Reason: PER HYPOGLYCEMIA PROTOCOL Glucagon (Glucagon Inj) 1 mg OTHER PRN PRN PRN Reason: for Hypoglycemia Protocol Magnesium Sulfate 4 gm/ Sodium (Chloride) 100 mls @ 50 mls/hr IV.SIG UNSCH PRN PRN Reason: For Magnesium 0.9 - 1.1 mg/dL Magnesium Sulfate 2 gm/ Sodium (Chloride) 100 mls @ 50 mls/hr IV.SIG UNSCH PRN PRN Reason: For Magnesium 1.2 - 1.6 mg/dL Potassium Chloride (Kcl 40 Meq Premix Inj) 40 meq in 100 mls @ 25 mls/hr IV.SIG Q2H PRN PRN Reason: For Potassium 2.8 - 3.2 mEq/L Potassium Chloride (Kcl 20 Meq Premix Inj) 20 meq in 100 mls @ 50 mls/hr IV.SIG Q2H PRN PRN Reason: For Potassium 3.3 - 3.5 mEq/L Potassium Chloride (Kcl 40 Meq Premix Inj) 40 meq in 100 mls @ 25 mls/hr IV.SIG UNSCH PRN PRN Reason: For Potassium 3.3 - 3.5 mEq/L Potassium Chloride (Kcl 20 Meq Premix Inj) 20 meq in 100 mls @ 50 mls/hr IV.SIG Q2H PRN PRN Reason: For Potassium 2.8 - 3.2 mEq/L Last Infusion: 08/05/18 17:14 Dose: Infused Potassium Phosphate 30 mmol/ (Sodium Chloride) 260 mls @ 42 mls/hr IV.SIG UNSCH PRN PRN Reason: SEE LABEL COMMENTS Last Infusion: 08/07/18 11:42 Dose: Infused Sodium Phosphate 30 mmol/ (Sodium Chloride) 260 mls @ 42 mls/hr IV.SIG UNSCH PRN PRN Reason: For Phosphorus < 2.5 mg/dL Methylprednisolone Sodium Succinate 250 mg/ Sodium Chloride 100 mls @ 200 mls/ hr IV.SIG DAILY MERON Last Infusion: 08/10/18 09:00 Dose: Infused Sodium Chloride (Ns Inj) 250 mls @ 15 mls/hr IV.SIG ONCE MERON Stop: 08/11/18 08:39 Last Infusion: 08/10/18 20:09 Dose: 15 mls/hr Insulin Aspart (Novolog Insulin Correctional Sugar Inj) 0 unit SQ ACHS [facility]; Protocol Last Admin: 08/10/18 21:27 Dose: 25 unit Insulin Detemir (Levemir Inj) 25 unit SQ BID [facility] Last Admin: 08/10/18 21:26 Dose: 25 unit Lactulose (Lactulose Liq) 30 ml PO DAILY PRN PRN Reason: SEVERE CONSITIPATION Lisinopril (Prinivil) 2.5 mg PO DAILY [facility] Last Admin: 08/10/18 08:27 Dose: 2.5 mg Magnesium Oxide (Mag-Ox) 800 mg PO UNSCH PRN PRN Reason: For Magnesium 1.2 - 1.6 mg/dL Morphine Sulfate (Morphine Inj) 2 mg IV.PUSH Q2H PRN PRN Reason: PAIN SCALE 6 TO 10 Last Admin: 08/10/18 02:25 Dose: 2 mg Multi-Ingredient Mouthwash/Gargle (Magic Mouthwash Adult Liq) 10 ml SWISH-SWAL QID [facility] Last Admin: 08/10/18 20:08 Dose: 10 ml Ondansetron HCl (Zofran Inj) 4 mg IV.PUSH Q6H PRN PRN Reason: NAUSEA OR VOMITING Pantoprazole Sodium (Protonix Inj) 40 mg IV.PUSH Q12H [facility] Last Admin: 08/10/18 16:54 Dose: 40 mg Polyethylene Glycol (Miralax) 17 gm PO DAILY [facility] Last Admin: 08/10/18 08:27 Dose: 17 gm Potassium Bicarb/Potassium Chloride (K-Lyte Cl Eff) 50 meq PO UNSCH PRN PRN Reason: For Potassium 3.3 - 3.5 mEq/L Last Admin: 08/07/18 22:30 Dose: 50 meq Potassium Phosphate (K-Phos Original) 2,000 mg PO Q4H PRN PRN Reason: Phosphorus Less Than 2.5 mg/dL Last Admin: 08/06/18 15:48 Dose: 2,000 mg Potassium Phosphate (K-Phos Original) 2,000 mg PO UNSCH PRN PRN Reason: SEE LABEL COMMENTS Romiplostim (Nplate Inj) 89 mcg SQ Q7D [facility] Last Admin: 08/09/18 09:40 Dose: 89 mcg Senna/Docusate Sodium (Lisa-Colace) 1 tab PO BID [facility] Last Admin: 08/10/18 21:27 Dose: Not Given Sennosides (Senokot) 17.2 mg PO Q12H PRN PRN Reason: Moderate Constipation Sodium Chloride (Ns Flush) 2 ml IV.FLUSH BID [facility] Last Admin: 08/10/18 21:27 Dose: 2 ml Sodium Chloride (Ns Flush) 2 ml IV.FLUSH PRN PRN PRN Reason: FLUSH AFTER USING IV ACCESS Last Admin: 08/06/18 09:37 Dose: 2 ml Tamsulosin HCl (Flomax) 0.4 mg PO DAILY [facility] Last Admin: 08/10/18 08:29 Dose: 0.4 mg Allergies Allergy/AdvReac Type Severity Reaction Status Date / Time No Known Allergies Allergy Verified 08/02/18 03:15 Home Medications Medication Instructions Recorded Confirmed Type atenolol 25 mg PO DAILY 08/02/18 08/02/18 History chlorpheniramine maleate 4 mg PO Q4H 08/02/18 08/02/18 History [Chlor-Trimeton] metformin 1,000 mg PO BID 08/02/18 08/02/18 History pantoprazole [Protonix] 40 mg PO DAILY 08/02/18 08/02/18 History pioglitazone [Actos] 45 mg PO DAILY 08/02/18 08/02/18 History sitagliptin [Januvia] 100 mg PO DAILY 08/02/18 08/02/18 History tamsulosin 0.4 mg PO DAILY 08/02/18 08/02/18 History Physical Exam Vital signs: Vital Signs 08/09/18 23:45 08/10/18 00:00 08/10/18 01:00 Temperature 98 F Pulse Rate 72 78 Respiratory Rate 38 H 24 Blood Pressure 119/58 L 125/58 L Pulse Oximetry 99 97 92 L 08/10/18 02:00 08/10/18 02:58 08/10/18 03:00 Temperature Pulse Rate 83 79 Respiratory Rate 19 24 22 Blood Pressure 138/65 126/58 L Pulse Oximetry 98 97 08/10/18 04:00 08/10/18 05:00 08/10/18 06:00 Temperature 97.6 F Pulse Rate 87 80 84 Respiratory Rate 19 36 H 19 Blood Pressure 166/73 H 139/63 153/69 H Pulse Oximetry 92 L 96 90 L 08/10/18 07:00 08/10/18 08:00 08/10/18 09:00 Temperature 98.6 F Pulse Rate 88 90 88 Respiratory Rate 30 H 22 26 H Blood Pressure 133/56 L 123/56 L Pulse Oximetry 94 L 94 L 95 08/10/18 09:03 08/10/18 10:00 08/10/18 10:01 Temperature Pulse Rate 91 H 92 H 93 H Respiratory Rate 24 24 29 H Blood Pressure 129/61 107/56 L Pulse Oximetry 95 96 96 08/10/18 11:00 08/10/18 12:00 08/10/18 13:00 Temperature 98.8 F Pulse Rate 72 68 75 Respiratory Rate 35 H 31 H 24 Blood Pressure 91/52 L 94/52 L Pulse Oximetry 94 L 94 L 97 08/10/18 13:01 08/10/18 14:00 08/10/18 14:40 Temperature Pulse Rate 75 78 74 Respiratory Rate 20 37 H 18 Blood Pressure 120/59 L 130/58 L 111/56 L Pulse Oximetry 97 95 97 08/10/18 15:00 08/10/18 15:06 08/10/18 16:00 Temperature 98.8 F Pulse Rate 74 74 71 Respiratory Rate 23 31 H 17 Blood Pressure 95/52 L 96/55 L 103/53 L Pulse Oximetry 97 95 93 L 08/10/18 16:15 08/10/18 16:31 08/10/18 18:00 Temperature 98.8 F 98.2 F Pulse Rate 73 73 72 Respiratory Rate 15 17 Blood Pressure 103/53 L 117/56 L Pulse Oximetry 96 96 08/10/18 18:06 08/10/18 19:52 Temperature 98.7 F Pulse Rate 72 Respiratory Rate 20 Blood Pressure 121/56 L Pulse Oximetry 100 99 Intake & Output 08/10/18 08/10/18 08/11/18 06:59 18:59 06:59 Intake Total 350 / 350 1394 / 1394 100 / 100 Output Total 1600 / 1600 1450 / 1450 Balance -1250 / -1250 -56 / -56 100 / 100 Weight 87.5 kg Intake: IV 100 / 100 100 / 100 SoluMEDROL Inj 250 MG In NS Inj 100 / 100 96 ML @ 200 mls/hr IV.SIG DAILY MERON Rx#:[id number] NS Inj 250 ML @ 15 mls/hr IV. 100 / 100 SIG ONCE MERON Rx#:[id number] Oral 350 / 350 960 / 960 Other 100 / 100 Plt Pheresis A Lr/Irr Unit 100 / 100 [id number] Intake (Blood Product) Amt Plt Pheresis A Lr/Irr Unit 234 / 234 [id number] Output: Urine 1600 / 1600 1450 / 1450 Stool 0 / 0 Urine/Stool Mix 0 / 0 Other: # Voids 5 # Incontinent Voids 0 1 Date of Last Bowel Movement 08/09/18 08/09/18 # Bowel Movements 0 # Incontinent Bowel Movements 0 Narrative: GENERAL: NAD, AAOx3 SKIN: Warm and dry. HEAD: Atraumatic. Normocephalic. EYES: Pupils equal and round. No scleral icterus. No injection or drainage. ENT: No nasal bleeding or discharge. Mucous membranes pink and moist. NECK: Trachea midline. No JVD. CARDIOVASCULAR: Regular rate and rhythm. RESPIRATORY: No accessory muscle use. Clear to auscultation. Breath sounds equal bilaterally. GASTROINTESTINAL: Abdomen soft, non-tender, nondistended. Hepatic and splenic margins not palpable. MUSCULOSKELETAL: Extremities without clubbing, cyanosis, or edema. No obvious deformities. NEUROLOGICAL: Awake and alert. No obvious cranial nerve deficits. Motor grossly within normal limits. Five out of 5 muscle strength in the arms and legs. Normal speech. PSYCHIATRIC: Appropriate mood and affect; insight and judgment normal. Results 08/10/18 13:08 08/10/18 03:22 Cardiac Enzymes 08/09/18 08/10/18 Range/Units 05:23 03:22 AST 44 H 50 H (15-37) U/L Lactate Dehydrogenase 271 H (87-241) U/L CBC 08/09/18 08/09/18 08/10/18 Range/Units 05:23 16:17 13:08 WBC 6.9 14.7 H D 17.9 H (4.0-11.0) th/mm3 RBC 2.38 L 2.68 L 2.83 L (4.50-5.90) mil/mm3 Hgb 6.9 L* 7.8 L 8.0 L (13.0-17.0) gm/dL Hct 20.2 L* 23.3 L 24.6 L (39.0-51.0) % Plt Count 13 L* 50 L D 20 L D (150-450) th/mm3 Neut # (Auto) 6.0 16.6 H (1.8-7.7) th/mm3 Lymph # (Auto) 0.5 L 0.3 L (1.0-4.8) th/mm3 [place] # (Auto) 0.4 1.0 H (0.0-0.9) th/mm3 Eos # (Auto) 0.0 0.0 (0.0-0.4) th/mm3 Baso # (Auto) 0.0 0.0 (0.0-0.2) th/mm3 Comprehensive Metabolic Panel 08/09/18 08/10/18 Range/Units 05:23 03:22 Sodium 135 L 135 L (136-145) meq/L Potassium 3.9 4.0 (3.5-5.1) meq/L Chloride 102 100 (98-107) meq/L Carbon Dioxide 26.6 27.3 (21.0-32.0) meq/L BUN 30 H 27 H (7-18) mg/dL Creatinine 1.03 1.02 (0.60-1.30) mg/dL Calcium 7.6 L 8.2 L (8.5-10.1) mg/dL Direct Bilirubin 0.3 H (0.0-0.2) mg/dL Indirect Bilirubin 0.3 (0.0-0.8) mg/dL AST 44 H 50 H (15-37) U/L ALT 52 60 (12-78) U/L Alkaline Phosphatase 51 63 (45-117) U/L Total Protein 7.2 D 7.7 (6.4-8.2) g/dL Albumin 2.1 L 2.5 L (3.4-5.0) g/dL Intake and Output 08/10/18 08/10/18 08/11/18 14:59 22:59 06:59 Intake Total 100 / 100 1394 / 1394 Output Total 1450 / 1450 Balance 100 / 100 -56 / -56 Intake: IV 100 / 100 100 / 100 SoluMEDROL Inj 250 MG In NS Inj 100 / 100 96 ML @ 200 mls/hr IV.SIG DAILY MERON Rx#:[id number] NS Inj 250 ML @ 15 mls/hr IV. 100 / 100 SIG ONCE MERON Rx#:[id number] Oral 960 / 960 Other 100 / 100 Plt Pheresis A Lr/Irr Unit 100 / 100 [id number] Intake (Blood Product) Amt 234 / 234 Plt Pheresis A Lr/Irr Unit 234 / 234 [id number] Output: Urine 1450 / 1450 Other: # Incontinent Voids 1 Date of Last Bowel Movement 08/09/18 08/09/18 - Imaging and Cardiology Imaging: Impressions Head CT 08/10/18 00:00 CONCLUSION: 1. Negative CT Head non contrast. . Assessment and Plan - Assessment (1) Cardiomyopathy Code(s): I42.9 - Cardiomyopathy, unspecified Status: Acute (2) Wide-complex tachycardia Code(s): I47.2 - Ventricular tachycardia Status: Acute (3) Atrial flutter Code(s): I48.92 - Unspecified atrial flutter Status: Acute (4) Hematochezia Code(s): K92.1 - Melena Status: Acute (5) Lower gastrointestinal hemorrhage Code(s): K92.2 - Gastrointestinal hemorrhage, unspecified Status: Acute (6) Anemia Code(s): D64.9 - Anemia, unspecified Status: Acute (7) Thrombocytopenia Code(s): D69.6 - Thrombocytopenia, unspecified Status: Acute (8) Acute GI bleeding Code(s): K92.2 - Gastrointestinal hemorrhage, unspecified Status: Acute - Plan 1) Cardiomyopathy Unsure of cause at this time Unable to undergo ischemic evaluation due to anemia/thrombocytopenia Con't medical management Atenolol changed to Coreg Lisinopril Will need repeat echo in 3 months while on medical management to evaluate ejection fraction Hx of prostate CA No chemotherapeutic agents that are cardiotoxic given Appears compensated May need Lasix with blood products if continually receiving I/O stable with blood products given, continue to follow 2) Wide complex tachycardia Asymptomatic Probable Aflutter with 2:1 with aberrancy Similar event on EKG from 11/2014 3) Atrial flutter Con't Coreg Not a candidate for anti-coagulation or ASA due to thrombocytopenia 4) Hx of Prostate cancer Received chemo and radiation 5) GI bleed Per GI
[2018-08-11] MEDS: Pantoprazole Inj 40 MG Vial IV.PUSH SCH (06:04)
[2018-08-11 06:31] LABS: Baso % (Auto) 0.2 % (0.0-2.0); Hematocrit 25.8 % (39.0-51.0); Hemoglobin 8.5 gm/dL (13.0-17.0); Lymph # (Auto) 0.4 th/mm3 (1.0-4.8); Lymph % (Auto) 2.6 % (9.0-44.0); Mean Corpuscular HGB Conc 32.8 % (32.0-36.0); Mean Corpuscular Hemoglobin 28.6 pg (27.0-34.0); Mean Corpuscular Volume 87.2 fL (80.0-100.0); Mono % (Auto) 6.4 % (0.0-8.0); Neut # (Auto) 14.6 th/mm3 (1.8-7.7); Neut % (Auto) 90.8 % (16.0-70.0); Platelet Count 28 th/mm3 (150-450); Red Blood Count 2.96 mil/mm3 (4.50-5.90); Red Cell Distribution Width 17.1 % (11.6-17.2)
[2018-08-11 07:29] LABS: Calcium 8.2 mg/dL (8.5-10.1); Carbon Dioxide 27.6 meq/L (21.0-32.0); Magnesium 1.9 mg/dL (1.5-2.5); Phosphorus 2.5 mg/dL (2.5-4.9); Potassium 3.9 meq/L (3.5-5.1)
[2018-08-11 07:41] LABS: Lymphocytes 2 % (9-44); Monocytes 2 % (0-8)
[2018-08-11 07:42] LABS: Platelet Morphology Normal (Normal); Toxic Granulation 1+
[2018-08-11 07:44] LABS: Polychromasia 2.1 % (0.0-1.9)
[2018-08-11] MEDS: Morphine Inj 4 MG/ML Vial IV.PUSH PRN ×2 (07:51→21:34)
[2018-08-11] MEDS: Lisinopril 5 MG Tablet PO SCH (08:31)
[2018-08-11] MEDS: Polyethylene Glycol 3350 17 GM Packet PO SCH (08:31)
[2018-08-11] MEDS: Senna/Docusate Sodium 8.6/50 MG Tablet PO SCH ×2 (08:32→21:34)
[2018-08-11] MEDS: Nystatin/Diphenhydramine/Lidocaine Mouthwash (Adult) 120 ML Botttle SWISH-SWAL SCH ×4 (08:33→21:22)
[2018-08-11] MEDS: SODIUM CHLOR 0.9% IV.SIG SCH (08:57)
[2018-08-11] MEDS: METHYLPREDNISOLONE SOD SUC IV.SIG SCH (08:57)
[2018-08-11] MEDS: Insulin Detemir Inj 1,000 UNIT/10 ML Vial SQ SCH ×2 (10:00→21:33)
--- NOTE | 2018-08-11 10:12 | P.PN ---
Subjective Interval history: Consulted by critical care medicine for transfer care and medical management. Chart reviewed. Complaining of right shoulder pain with limited range of motion. Denies trauma. Physical Exam Vital signs: Vital Signs 08/10/18 11:00 08/10/18 12:00 08/10/18 13:00 Temperature 98.8 F Pulse Rate 72 68 75 Respiratory Rate 35 H 31 H 24 Blood Pressure 91/52 L 94/52 L Pulse Oximetry 94 L 94 L 97 08/10/18 13:01 08/10/18 14:00 08/10/18 14:40 Temperature Pulse Rate 75 78 74 Respiratory Rate 20 37 H 18 Blood Pressure 120/59 L 130/58 L 111/56 L Pulse Oximetry 97 95 97 08/10/18 15:00 08/10/18 15:06 08/10/18 16:00 Temperature 98.8 F Pulse Rate 74 74 71 Respiratory Rate 23 31 H 17 Blood Pressure 95/52 L 96/55 L 103/53 L Pulse Oximetry 97 95 93 L 08/10/18 16:15 08/10/18 16:31 08/10/18 16:32 Temperature 98.8 F 98.2 F Pulse Rate 73 73 73 Respiratory Rate 15 17 25 H Blood Pressure 103/53 L 117/56 L 117/56 L Pulse Oximetry 96 96 94 L 08/10/18 17:00 08/10/18 18:00 08/10/18 18:06 Temperature 98.7 F Pulse Rate 73 72 72 Respiratory Rate 26 H 24 20 Blood Pressure 117/56 L 121/56 L 121/56 L Pulse Oximetry 95 97 100 08/10/18 19:00 08/10/18 19:52 08/10/18 20:00 Temperature Pulse Rate 92 H 79 Respiratory Rate 31 H 26 H Blood Pressure 154/67 H Pulse Oximetry 98 99 98 08/10/18 20:01 08/10/18 21:00 08/10/18 21:01 Temperature Pulse Rate 81 81 81 Respiratory Rate 30 H 34 H 30 H Blood Pressure 136/99 H 116/92 H Pulse Oximetry 97 98 98 08/10/18 22:00 08/10/18 22:01 08/10/18 23:00 Temperature Pulse Rate 80 80 96 H Respiratory Rate 27 H 23 31 H Blood Pressure 147/65 H Pulse Oximetry 96 96 98 08/10/18 23:01 08/11/18 00:00 08/11/18 00:01 Temperature Pulse Rate 90 91 H 96 H Respiratory Rate 34 H 28 H 24 Blood Pressure 128/57 L 152/69 H Pulse Oximetry 97 97 98 08/11/18 01:00 08/11/18 01:01 08/11/18 02:00 Temperature Pulse Rate 79 78 81 Respiratory Rate 21 20 20 Blood Pressure 128/59 L 129/59 L Pulse Oximetry 96 95 97 08/11/18 03:00 08/11/18 04:00 08/11/18 04:01 Temperature Pulse Rate 80 86 87 Respiratory Rate 20 21 21 Blood Pressure 134/60 154/72 H Pulse Oximetry 95 98 98 08/11/18 05:00 08/11/18 06:00 08/11/18 08:00 Temperature Pulse Rate 87 84 Respiratory Rate 22 22 16 Blood Pressure 141/66 H 149/66 H Pulse Oximetry 97 95 Intake & Output 08/10/18 08/11/18 08/11/18 18:59 06:59 18:59 Intake Total 1394 / 1394 350 / 350 Output Total 1450 / 1450 1400 / 1400 Balance -56 / -56 -1050 / -1050 Weight 89 kg Intake: IV 100 / 100 100 / 100 SoluMEDROL Inj 250 MG In NS Inj 100 / 100 96 ML @ 200 mls/hr IV.SIG DAILY MERON Rx#:[id number] NS Inj 250 ML @ 15 mls/hr IV. 100 / 100 SIG ONCE MERON Rx#:[id number] Oral 960 / 960 250 / 250 Other 100 / 100 Plt Pheresis A Lr/Irr Unit 100 / 100 [id number] Intake (Blood Product) Amt 234 / 234 Plt Pheresis A Lr/Irr Unit 234 / 234 [id number] Output: Urine 1450 / 1450 1400 / 1400 Other: # Incontinent Voids 1 Date of Last Bowel Movement 08/09/18 08/10/18 # Incontinent Bowel Movements 2 Narrative: GENERAL: Patient is 83 yo lying in bed in NAD SKIN: Warm and dry. Multiple ecchymoses bilateral upper extremities CARDIOVASCULAR: Regular rate and rhythm RESPIRATORY: equal chest rise. No accessory muscle use. GASTROINTESTINAL: Abdomen soft, non-tender, nondistended. MUSCULOSKELETAL: No significant peripheral edema. Tender right shoulder with slight swelling no redness or warmth. Limited passive range of motion with flexion and abduction Neuro: Alert and oriented. no focal deficits. sensation grossly intact. WENDY 5/5 in all 4 extremities except right upper extremity secondary to shoulder pain Results - Labs CBC & Chem 7: 08/11/18 04:56 08/11/18 04:56 Laboratory Results - last 24 hr 08/10/18 08/10/18 08/10/18 13:02 13:03 13:08 WBC 17.9 H RBC 2.83 L Hgb 8.0 L Hct 24.6 L MCV 86.8 MCH 28.1 MCHC 32.4 RDW 16.9 Plt Count 20 L D MPV 10.6 Prelim Diff (Auto) Slide review pending Neut % (Auto) 92.9 H Lymph % (Auto) 1.7 L Arthur % (Auto) 5.3 Eos % (Auto) 0.0 Baso % (Auto) 0.1 Neut # (Auto) 16.6 H Lymph # (Auto) 0.3 L Arthur # (Auto) 1.0 H Eos # (Auto) 0.0 Baso # (Auto) 0.0 WBC Differential . Diff Scan Auto diff confirmed Seg Neuts % (Manual) Band Neuts % (Manual) Lymphocytes % (Manual) Monocytes % (Manual) Abs Neuts (Manual) Differential Comment . Toxic Granulation Platelet Estimate Low L Platelet Morphology Normal Polychromasia Ovalocytes 1+ H Puncture Site Right radial Patient Temperature 98.6 O2 Saturation 92 ABG pH 7.47 H ABG pCO2 34 L ABG pO2 72 ABG HCO3 25 ABG O2 Content 10.7 L ABG Base Excess 1.3 ABG Methemoglobin 1.7 Abhijeet Test Present Hemoglobin 8.2 L Carboxyhemoglobin 2.0 Inspired O2 21 Critical Value No Sodium Potassium Chloride Carbon Dioxide Anion Gap BUN Creatinine Estimated GFR POC Glucose 367 H Random Glucose Calcium Phosphorus Magnesium Bld Prod Order Comment 08/10/18 08/10/18 08/10/18 15:27 16:27 21:12 WBC RBC Hgb Hct MCV MCH MCHC RDW Plt Count MPV Prelim Diff (Auto) Neut % (Auto) Lymph % (Auto) Arthur % (Auto) Eos % (Auto) Baso % (Auto) Neut # (Auto) Lymph # (Auto) Arthur # (Auto) Eos # (Auto) Baso # (Auto) WBC Differential Diff Scan Seg Neuts % (Manual) Band Neuts % (Manual) Lymphocytes % (Manual) Monocytes % (Manual) Abs Neuts (Manual) Differential Comment Toxic Granulation Platelet Estimate Platelet Morphology Polychromasia Ovalocytes Puncture Site Patient Temperature O2 Saturation ABG pH ABG pCO2 ABG pO2 ABG HCO3 ABG O2 Content ABG Base Excess ABG Methemoglobin Abhijeet Test Hemoglobin Carboxyhemoglobin Inspired O2 Critical Value Sodium Potassium Chloride Carbon Dioxide Anion Gap BUN Creatinine Estimated GFR POC Glucose 417 H 379 H Random Glucose Calcium Phosphorus Magnesium Bld Prod Order Comment 08/11/18 08/11/18 08/11/18 04:56 04:56 08:41 WBC 16.0 H RBC 2.96 L Hgb 8.5 L Hct 25.8 L MCV 87.2 MCH 28.6 MCHC 32.8 RDW 17.1 Plt Count 28 L D MPV 11.0 Prelim Diff (Auto) Slide review pending Neut % (Auto) 90.8 H Lymph % (Auto) 2.6 L Arthur % (Auto) 6.4 Eos % (Auto) 0.0 Baso % (Auto) 0.2 Neut # (Auto) 14.6 H Lymph # (Auto) 0.4 L Arthur # (Auto) 1.0 H Eos # (Auto) 0.0 Baso # (Auto) 0.0 WBC Differential Manual diff final Diff Scan Seg Neuts % (Manual) 88 H Band Neuts % (Manual) 8 H Lymphocytes % (Manual) 2 L Monocytes % (Manual) 2 Abs Neuts (Manual) 15.4 H Differential Comment . Toxic Granulation 1+ H Platelet Estimate Low L Platelet Morphology Normal Polychromasia 2.1 H Ovalocytes Puncture Site Patient Temperature O2 Saturation ABG pH ABG pCO2 ABG pO2 ABG HCO3 ABG O2 Content ABG Base Excess ABG Methemoglobin Abhijeet Test Hemoglobin Carboxyhemoglobin Inspired O2 Critical Value Sodium 137 Potassium 3.9 Chloride 102 Carbon Dioxide 27.6 Anion Gap 7 BUN 30 H Creatinine 0.88 Estimated GFR 83 L POC Glucose 98 Random Glucose 95 Calcium 8.2 L Phosphorus 2.5 Magnesium 1.9 Bld Prod Order Comment - Imaging Impressions ITS Impressions Abdomen/Pelvis CT 08/02/18 04:01 CONCLUSION: 1. 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 2. Nonacute findings include severe atherosclerotic disease, cholelithiasis, stable complex cystic lesion of the left kidney measuring 6.5 cm, and cirrhotic liver. Chest X-Ray 08/07/18 08:39 CONCLUSION: 1. Cardiomegaly with mild positive fluid balance. 2. Minimal bibasilar airspace disease, presumably atelectasis. Head CT 08/10/18 00:00 CONCLUSION: 1. Negative CT Head non contrast. . Assessment and Plan - Plan Severe thrombocytopenia - ITP Acute normocytic anemia GI bleed Hyperglycemia Hx DM Proctitis per CT abd. Hx Prostate ca s/p radiation tx. Acute systolic heart failure Atrial flutter Elevated AST Hypoalbuminemia Right shoulder pain with limited range of motion. No recent trauma Encephalopathy Plan Neuro: head CT 08/10: negative acute bleed. Somnolence resolved. Monitor neuro status and avoid sedatives. Pulm: Continue with Oxygen keep sats >92% Albuterol/ipratropium aerosols every 6 hours with albuterol aerosols every 2 hours as needed dyspnea CV: Monitor HR and BP keep MAP>65mmHg Echo showed severe LV dysfunction with EF 30-35%. Repeat echocardiogram in 3 months Continue Lisinopril 2.5mg daily and carvedilol 3.125mg BID. Not a candidate for ASA or systemic anticoagulation due to severe thrombocytopenia. Will also need ischemic evaluation when patient more stable and hematologic abnormalities improved Cards ff-Dr. Nation : Monitor renal function, I/O's, electrolytes replacement per protocol. Continue tamsulosin 0.4 mg daily GI: On PO cardiac diet. IV pantoprazole 40mg BID switch to p.o. GI is following. Per nursing, patient refused hydrocortisone supp BID. Possible endoscopy in future when stable ID: Monitor for signs of infections ( fever, WBC) Panculture if spikes a fever Heme: Monitor CBC, coags, s/p transfusion 6u PRBC and 6 u PLT since admission: Hematology is following- received IVIG x 2 on methylprednisolone succinate 250mg IV Q24 Haptoglobin was 117. LDH was elevated to 71. UA negative for hemolysis. Endo: On high SSI for glycemic control, insulin detemir 18u BID. Switch to diabetic diet. Musc: Obtain right shoulder CT given history of thrombocytopenia. Continue PT recommending home health care DVT GI prophylaxis -Teds SCDs -No pharmacological DVT prophylaxis due to severe thrombocytopenia and GI bleed -Pantoprazole twice daily stable to transfer out of ICU to step-down unit.
--- NOTE | 2018-08-11 10:21 | P.DCO ---
- Diagnosis (1) Acute GI bleeding Status: Acute (2) Cardiomyopathy Status: Acute - Physical Therapy Order: Evaluate and treat, Improve ambulation, Strength and gait training - Home Health Nursing Order: Medical education, Diabetic education, CHF education, Oxygen administration education, Nursing assessment with vital signs - Case Management Consult Yes - Certification I have seen patient Turner Butterfield on 08/11/18. My clinical findings support the need for the requested home health care services because: Patient has SOB, Deconditioned with increased weakness I certify that my clinical findings support that this patient is homebound because: Poor cardiac reserve
--- NOTE | 2018-08-11 12:51 | P.PNCA ---
Subjective Interval history: No events overnight Medications and Allergies Active Medications: Active Medications Acetaminophen (Tylenol) 650 mg PO Q6H PRN PRN Reason: PAIN 1-10 AND/OR FEVER >101F Last Admin: 08/10/18 03:05 Dose: 650 mg Al Hydroxide/Mg Hydroxide (Milk Of Magnalbert Liq) 30 ml PO Q12H PRN PRN Reason: Mild Constipation Albuterol (Albuterol Neb (Prn)) 2.5 mg NEB Q2HR NEB PRN PRN Reason: DYSPNEA Carvedilol (Coreg) 3.125 mg PO BID [facility] Last Admin: 08/11/18 08:32 Dose: 3.125 mg Dextrose (D50w Vial) 50 ml IV.PUSH UNSCH PRN PRN Reason: PER HYPOGLYCEMIA PROTOCOL Glucagon (Glucagon Inj) 1 mg OTHER PRN PRN PRN Reason: for Hypoglycemia Protocol Magnesium Sulfate 4 gm/ Sodium (Chloride) 100 mls @ 50 mls/hr IV.SIG UNSCH PRN PRN Reason: For Magnesium 0.9 - 1.1 mg/dL Magnesium Sulfate 2 gm/ Sodium (Chloride) 100 mls @ 50 mls/hr IV.SIG UNSCH PRN PRN Reason: For Magnesium 1.2 - 1.6 mg/dL Potassium Chloride (Kcl 40 Meq Premix Inj) 40 meq in 100 mls @ 25 mls/hr IV.SIG Q2H PRN PRN Reason: For Potassium 2.8 - 3.2 mEq/L Potassium Chloride (Kcl 20 Meq Premix Inj) 20 meq in 100 mls @ 50 mls/hr IV.SIG Q2H PRN PRN Reason: For Potassium 3.3 - 3.5 mEq/L Potassium Chloride (Kcl 40 Meq Premix Inj) 40 meq in 100 mls @ 25 mls/hr IV.SIG UNSCH PRN PRN Reason: For Potassium 3.3 - 3.5 mEq/L Potassium Chloride (Kcl 20 Meq Premix Inj) 20 meq in 100 mls @ 50 mls/hr IV.SIG Q2H PRN PRN Reason: For Potassium 2.8 - 3.2 mEq/L Last Infusion: 08/05/18 17:14 Dose: Infused Potassium Phosphate 30 mmol/ (Sodium Chloride) 260 mls @ 42 mls/hr IV.SIG UNSCH PRN PRN Reason: SEE LABEL COMMENTS Last Infusion: 08/07/18 11:42 Dose: Infused Sodium Phosphate 30 mmol/ (Sodium Chloride) 260 mls @ 42 mls/hr IV.SIG UNSCH PRN PRN Reason: For Phosphorus < 2.5 mg/dL Methylprednisolone Sodium Succinate 250 mg/ Sodium Chloride 100 mls @ 200 mls/ hr IV.SIG DAILY [facility] Last Infusion: 08/11/18 10:32 Dose: Infused Insulin Aspart (Novolog Insulin Correctional Sugar Inj) 0 unit SQ ACHS [facility]; Protocol Last Admin: 08/10/18 21:27 Dose: 25 unit Insulin Detemir (Levemir Inj) 25 unit SQ BID [facility] Last Admin: 08/11/18 10:00 Dose: 25 unit Lactulose (Lactulose Liq) 30 ml PO DAILY PRN PRN Reason: SEVERE CONSITIPATION Lisinopril (Prinivil) 2.5 mg PO DAILY [facility] Last Admin: 08/11/18 08:31 Dose: 2.5 mg Magnesium Oxide (Mag-Ox) 800 mg PO UNSCH PRN PRN Reason: For Magnesium 1.2 - 1.6 mg/dL Morphine Sulfate (Morphine Inj) 2 mg IV.PUSH Q2H PRN PRN Reason: PAIN SCALE 6 TO 10 Last Admin: 08/11/18 07:51 Dose: 2 mg Multi-Ingredient Mouthwash/Gargle (Magic Mouthwash Adult Liq) 10 ml SWISH-SWAL QID [facility] Last Admin: 08/11/18 08:33 Dose: 10 ml Ondansetron HCl (Zofran Inj) 4 mg IV.PUSH Q6H PRN PRN Reason: NAUSEA OR VOMITING Pantoprazole Sodium (Protonix) 40 mg PO BID [facility] Polyethylene Glycol (Miralax) 17 gm PO DAILY [facility] Last Admin: 08/11/18 08:31 Dose: 17 gm Potassium Bicarb/Potassium Chloride (K-Lyte Cl Eff) 50 meq PO UNSCH PRN PRN Reason: For Potassium 3.3 - 3.5 mEq/L Last Admin: 08/07/18 22:30 Dose: 50 meq Potassium Phosphate (K-Phos Original) 2,000 mg PO Q4H PRN PRN Reason: Phosphorus Less Than 2.5 mg/dL Last Admin: 08/06/18 15:48 Dose: 2,000 mg Potassium Phosphate (K-Phos Original) 2,000 mg PO UNSCH PRN PRN Reason: SEE LABEL COMMENTS Romiplostim (Nplate Inj) 89 mcg SQ Q7D [facility] Last Admin: 08/09/18 09:40 Dose: 89 mcg Senna/Docusate Sodium (Lisa-Colace) 1 tab PO BID [facility] Last Admin: 08/11/18 08:32 Dose: 1 tab Sennosides (Senokot) 17.2 mg PO Q12H PRN PRN Reason: Moderate Constipation Sodium Chloride (Ns Flush) 2 ml IV.FLUSH BID [facility] Last Admin: 08/11/18 08:32 Dose: 2 ml Sodium Chloride (Ns Flush) 2 ml IV.FLUSH PRN PRN PRN Reason: FLUSH AFTER USING IV ACCESS Last Admin: 08/06/18 09:37 Dose: 2 ml Tamsulosin HCl (Flomax) 0.4 mg PO DAILY [facility] Last Admin: 08/11/18 08:32 Dose: 0.4 mg Allergies Allergy/AdvReac Type Severity Reaction Status Date / Time No Known Allergies Allergy Verified 08/02/18 03:15 Home Medications Medication Instructions Recorded Confirmed Type atenolol 25 mg PO DAILY 08/02/18 08/02/18 History chlorpheniramine maleate 4 mg PO Q4H 08/02/18 08/02/18 History [Chlor-Trimeton] metformin 1,000 mg PO BID 08/02/18 08/02/18 History pantoprazole [Protonix] 40 mg PO DAILY 08/02/18 08/02/18 History pioglitazone [Actos] 45 mg PO DAILY 08/02/18 08/02/18 History sitagliptin [Januvia] 100 mg PO DAILY 08/02/18 08/02/18 History tamsulosin 0.4 mg PO DAILY 08/02/18 08/02/18 History Physical Exam Vital signs: Vital Signs 08/10/18 13:00 08/10/18 13:01 08/10/18 14:00 Temperature Pulse Rate 75 75 78 Respiratory Rate 24 20 37 H Blood Pressure 120/59 L 130/58 L Pulse Oximetry 97 97 95 08/10/18 14:40 08/10/18 15:00 08/10/18 15:06 Temperature Pulse Rate 74 74 74 Respiratory Rate 18 23 31 H Blood Pressure 111/56 L 95/52 L 96/55 L Pulse Oximetry 97 97 95 08/10/18 16:00 08/10/18 16:15 08/10/18 16:31 Temperature 98.8 F 98.8 F 98.2 F Pulse Rate 71 73 73 Respiratory Rate 17 15 17 Blood Pressure 103/53 L 103/53 L 117/56 L Pulse Oximetry 93 L 96 96 08/10/18 16:32 08/10/18 17:00 08/10/18 18:00 Temperature Pulse Rate 73 73 72 Respiratory Rate 25 H 26 H 24 Blood Pressure 117/56 L 117/56 L 121/56 L Pulse Oximetry 94 L 95 97 08/10/18 18:06 08/10/18 19:00 08/10/18 19:52 Temperature 98.7 F Pulse Rate 72 92 H Respiratory Rate 20 31 H Blood Pressure 121/56 L 154/67 H Pulse Oximetry 100 98 99 08/10/18 20:00 08/10/18 20:01 08/10/18 21:00 Temperature Pulse Rate 79 81 81 Respiratory Rate 26 H 30 H 34 H Blood Pressure 136/99 H Pulse Oximetry 98 97 98 08/10/18 21:01 08/10/18 22:00 08/10/18 22:01 Temperature Pulse Rate 81 80 80 Respiratory Rate 30 H 27 H 23 Blood Pressure 116/92 H 147/65 H Pulse Oximetry 98 96 96 08/10/18 23:00 08/10/18 23:01 08/11/18 00:00 Temperature Pulse Rate 96 H 90 91 H Respiratory Rate 31 H 34 H 28 H Blood Pressure 128/57 L Pulse Oximetry 98 97 97 08/11/18 00:01 08/11/18 01:00 08/11/18 01:01 Temperature Pulse Rate 96 H 79 78 Respiratory Rate 24 21 20 Blood Pressure 152/69 H 128/59 L Pulse Oximetry 98 96 95 08/11/18 02:00 08/11/18 03:00 08/11/18 04:00 Temperature Pulse Rate 81 80 86 Respiratory Rate 20 20 21 Blood Pressure 129/59 L 134/60 Pulse Oximetry 97 95 98 08/11/18 04:01 08/11/18 05:00 08/11/18 06:00 Temperature Pulse Rate 87 87 84 Respiratory Rate 21 22 22 Blood Pressure 154/72 H 141/66 H 149/66 H Pulse Oximetry 98 97 95 08/11/18 07:00 08/11/18 08:00 08/11/18 10:00 Temperature Pulse Rate 84 94 H Respiratory Rate 16 Blood Pressure Pulse Oximetry 84 L Intake & Output 08/10/18 08/11/18 08/11/18 18:59 06:59 18:59 Intake Total 1394 / 1394 350 / 350 100 / 100 Output Total 1450 / 1450 1400 / 1400 Balance -56 / -56 -1050 / -1050 100 / 100 Weight 89 kg Intake: IV 100 / 100 100 / 100 100 / 100 SoluMEDROL Inj 250 MG In NS Inj 100 / 100 100 / 100 96 ML @ 200 mls/hr IV.SIG DAILY [facility] Rx#:[id number] NS Inj 250 ML @ 15 mls/hr IV. 100 / 100 SIG ONCE [facility] Rx#:[id number] Oral 960 / 960 250 / 250 Other 100 / 100 Plt Pheresis A Lr/Irr Unit 100 / 100 [id number] Intake (Blood Product) Amt 234 / 234 Plt Pheresis A Lr/Irr Unit 234 / 234 [id number] Output: Urine 1450 / 1450 1400 / 1400 Other: # Incontinent Voids 1 Date of Last Bowel Movement 08/09/18 08/10/18 08/10/18 # Incontinent Bowel Movements 2 Narrative: GENERAL: Patient is 83 yo lying in bed in NAD SKIN: Warm and dry. Multiple ecchymoses bilateral upper extremities CARDIOVASCULAR: Regular rate and rhythm RESPIRATORY: equal chest rise. No accessory muscle use. GASTROINTESTINAL: Abdomen soft, non-tender, nondistended. MUSCULOSKELETAL: No significant peripheral edema. Tender right shoulder with slight swelling no redness or warmth. Limited passive range of motion with flexion and abduction Neuro: Alert and oriented. no focal deficits. sensation grossly intact. WENDY 5/5 in all 4 extremities except right upper extremity secondary to shoulder pain Results 08/11/18 04:56 08/11/18 04:56 Cardiac Enzymes 08/10/18 Range/Units 03:22 AST 50 H (15-37) U/L CBC 08/09/18 08/10/18 08/11/18 Range/Units 16:17 13:08 04:56 WBC 14.7 H D 17.9 H 16.0 H (4.0-11.0) th/mm3 RBC 2.68 L 2.83 L 2.96 L (4.50-5.90) mil/mm3 Hgb 7.8 L 8.0 L 8.5 L (13.0-17.0) gm/dL Hct 23.3 L 24.6 L 25.8 L (39.0-51.0) % Plt Count 50 L D 20 L D 28 L D (150-450) th/mm3 Neut # (Auto) 16.6 H 14.6 H (1.8-7.7) th/mm3 Lymph # (Auto) 0.3 L 0.4 L (1.0-4.8) th/mm3 Bowie # (Auto) 1.0 H 1.0 H (0.0-0.9) th/mm3 Eos # (Auto) 0.0 0.0 (0.0-0.4) th/mm3 Baso # (Auto) 0.0 0.0 (0.0-0.2) th/mm3 Comprehensive Metabolic Panel 08/10/18 08/11/18 Range/Units 03:22 04:56 Sodium 135 L 137 (136-145) meq/L Potassium 4.0 3.9 (3.5-5.1) meq/L Chloride 100 102 (98-107) meq/L Carbon Dioxide 27.3 27.6 (21.0-32.0) meq/L BUN 27 H 30 H (7-18) mg/dL Creatinine 1.02 0.88 (0.60-1.30) mg/dL Calcium 8.2 L 8.2 L (8.5-10.1) mg/dL AST 50 H (15-37) U/L ALT 60 (12-78) U/L Alkaline Phosphatase 63 (45-117) U/L Total Protein 7.7 (6.4-8.2) g/dL Albumin 2.5 L (3.4-5.0) g/dL Intake and Output 08/10/18 08/11/18 08/11/18 22:59 06:59 14:59 Intake Total 1394 / 1394 250 / 250 100 / 100 Output Total 1450 / 1450 1400 / 1400 Balance -56 / -56 -1150 / -1150 100 / 100 Intake: IV 100 / 100 100 / 100 SoluMEDROL Inj 250 MG In NS Inj 100 / 100 96 ML @ 200 mls/hr IV.SIG DAILY [facility] Rx#:[id number] NS Inj 250 ML @ 15 mls/hr IV. 100 / 100 SIG ONCE [facility] Rx#:[id number] Oral 960 / 960 250 / 250 Other 100 / 100 Plt Pheresis A Lr/Irr Unit 100 / 100 [id number] Intake (Blood Product) Amt 234 / 234 Plt Pheresis A Lr/Irr Unit 234 / 234 [id number] Output: Urine 1450 / 1450 1400 / 1400 Other: # Incontinent Voids 1 Date of Last Bowel Movement 08/10/18 08/10/18 08/10/18 # Incontinent Bowel Movements 2 Weight 89 kg - Imaging and Cardiology Imaging: Impressions Head CT 08/10/18 00:00 CONCLUSION: 1. Negative CT Head non contrast. . Assessment and Plan - Assessment (1) Cardiomyopathy Code(s): I42.9 - Cardiomyopathy, unspecified Status: Acute (2) Wide-complex tachycardia Code(s): I47.2 - Ventricular tachycardia Status: Acute (3) Atrial flutter Code(s): I48.92 - Unspecified atrial flutter Status: Acute (4) Hematochezia Code(s): K92.1 - Melena Status: Acute (5) Lower gastrointestinal hemorrhage Code(s): K92.2 - Gastrointestinal hemorrhage, unspecified Status: Acute (6) Anemia Code(s): D64.9 - Anemia, unspecified Status: Acute (7) Thrombocytopenia Code(s): D69.6 - Thrombocytopenia, unspecified Status: Acute (8) Acute GI bleeding Code(s): K92.2 - Gastrointestinal hemorrhage, unspecified Status: Acute - Plan 1) Cardiomyopathy Unsure of cause at this time Unable to undergo ischemic evaluation due to anemia/thrombocytopenia Con't medical management Atenolol changed to Coreg Lisinopril Will need repeat echo in 3 months while on medical management to evaluate ejection fraction Hx of prostate CA No chemotherapeutic agents that are cardiotoxic given Appears compensated May need Lasix with blood products if continually receiving I/O stable with blood products given, continue to follow 2) Wide complex tachycardia Asymptomatic Probable Aflutter with 2:1 with aberrancy Similar event on EKG from 11/2014 3) Atrial flutter Con't Coreg Not a candidate for anti-coagulation or ASA due to thrombocytopenia 4) Hx of Prostate cancer Received chemo and radiation 5) GI bleed Per GI 6) No further cardiovascular work up at this time Will see PRN, call with questions
--- NOTE | 2018-08-11 14:00 | P.PNGI ---
Subjective Interval history: Sitting up in the chair abdomen appears mildly distended, but denies abdominal pain. Still appears to have some generalized weakness, current platelet count 28, hemoglobin 8.5 <Ekta Wan - Last Filed: 08/11/18 13:52> Physical Exam Vital signs: Vital Signs 08/10/18 14:00 08/10/18 14:40 08/10/18 15:00 Temperature Pulse Rate 78 74 74 Respiratory Rate 37 H 18 23 Blood Pressure 130/58 L 111/56 L 95/52 L Pulse Oximetry 95 97 97 08/10/18 15:06 08/10/18 16:00 08/10/18 16:15 Temperature 98.8 F 98.8 F Pulse Rate 74 71 73 Respiratory Rate 31 H 17 15 Blood Pressure 96/55 L 103/53 L 103/53 L Pulse Oximetry 95 93 L 96 08/10/18 16:31 08/10/18 16:32 08/10/18 17:00 Temperature 98.2 F Pulse Rate 73 73 73 Respiratory Rate 17 25 H 26 H Blood Pressure 117/56 L 117/56 L 117/56 L Pulse Oximetry 96 94 L 95 08/10/18 18:00 08/10/18 18:06 08/10/18 19:00 Temperature 98.7 F Pulse Rate 72 72 92 H Respiratory Rate 24 20 31 H Blood Pressure 121/56 L 121/56 L 154/67 H Pulse Oximetry 97 100 98 08/10/18 19:52 08/10/18 20:00 08/10/18 20:01 Temperature Pulse Rate 79 81 Respiratory Rate 26 H 30 H Blood Pressure 136/99 H Pulse Oximetry 99 98 97 08/10/18 21:00 08/10/18 21:01 08/10/18 22:00 Temperature Pulse Rate 81 81 80 Respiratory Rate 34 H 30 H 27 H Blood Pressure 116/92 H Pulse Oximetry 98 98 96 08/10/18 22:01 08/10/18 23:00 08/10/18 23:01 Temperature Pulse Rate 80 96 H 90 Respiratory Rate 23 31 H 34 H Blood Pressure 147/65 H 128/57 L Pulse Oximetry 96 98 97 08/11/18 00:00 08/11/18 00:01 08/11/18 01:00 Temperature Pulse Rate 91 H 96 H 79 Respiratory Rate 28 H 24 21 Blood Pressure 152/69 H Pulse Oximetry 97 98 96 08/11/18 01:01 08/11/18 02:00 08/11/18 03:00 Temperature Pulse Rate 78 81 80 Respiratory Rate 20 20 20 Blood Pressure 128/59 L 129/59 L 134/60 Pulse Oximetry 95 97 95 08/11/18 04:00 08/11/18 04:01 08/11/18 05:00 Temperature Pulse Rate 86 87 87 Respiratory Rate 21 21 22 Blood Pressure 154/72 H 141/66 H Pulse Oximetry 98 98 97 08/11/18 06:00 08/11/18 07:00 08/11/18 08:00 Temperature Pulse Rate 84 84 Respiratory Rate 22 16 Blood Pressure 149/66 H Pulse Oximetry 95 84 L 08/11/18 10:00 Temperature Pulse Rate 94 H Respiratory Rate Blood Pressure Pulse Oximetry Intake & Output 08/10/18 08/11/18 08/11/18 18:59 06:59 18:59 Intake Total 1394 / 1394 350 / 350 100 / 100 Output Total 1450 / 1450 1400 / 1400 Balance -56 / -56 -1050 / -1050 100 / 100 Weight 89 kg Intake: IV 100 / 100 100 / 100 100 / 100 SoluMEDROL Inj 250 MG In NS Inj 100 / 100 100 / 100 96 ML @ 200 mls/hr IV.SIG DAILY MERON Rx#:[id number] NS Inj 250 ML @ 15 mls/hr IV. 100 / 100 SIG ONCE MERON Rx#:[id number] Oral 960 / 960 250 / 250 Other 100 / 100 Plt Pheresis A Lr/Irr Unit 100 / 100 [id number] Intake (Blood Product) Amt 234 / 234 Plt Pheresis A Lr/Irr Unit 234 / 234 [id number] Output: Urine 1450 / 1450 1400 / 1400 Other: # Incontinent Voids 1 Date of Last Bowel Movement 08/09/18 08/10/18 08/10/18 # Incontinent Bowel Movements 2 - Constitutional mild distress, obese, disheveled - Routine HEENT Exam Head: Present: normocephalic ENT: Present: mucous membranes dry - Routine Neck Exam Present: supple - Routine Respiratory Exam Present: accessory muscle use (Low volumes, no audible wheezing) - Routine Cardiovascular Exam Present: S1, S2 - Routine Abdominal Exam Present: normoactive bowel sounds (Soft bowel sounds), distended (Mild, round, obese, taut) - Routine Skin Exam Present: pallor - Routine Neurological Exam Present: alert <Ekta Wan - Last Filed: 08/11/18 13:52> Vital signs: Vital Signs 08/10/18 19:52 08/10/18 20:00 08/10/18 20:01 Temperature Pulse Rate 79 81 Respiratory Rate 26 H 30 H Blood Pressure 136/99 H Pulse Oximetry 99 98 97 08/10/18 21:00 08/10/18 21:01 08/10/18 22:00 Temperature Pulse Rate 81 81 80 Respiratory Rate 34 H 30 H 27 H Blood Pressure 116/92 H Pulse Oximetry 98 98 96 08/10/18 22:01 08/10/18 23:00 08/10/18 23:01 Temperature Pulse Rate 80 96 H 90 Respiratory Rate 23 31 H 34 H Blood Pressure 147/65 H 128/57 L Pulse Oximetry 96 98 97 08/11/18 00:00 08/11/18 00:01 08/11/18 01:00 Temperature Pulse Rate 91 H 96 H 79 Respiratory Rate 28 H 24 21 Blood Pressure 152/69 H Pulse Oximetry 97 98 96 08/11/18 01:01 08/11/18 02:00 08/11/18 03:00 Temperature Pulse Rate 78 81 80 Respiratory Rate 20 20 20 Blood Pressure 128/59 L 129/59 L 134/60 Pulse Oximetry 95 97 95 08/11/18 04:00 08/11/18 04:01 08/11/18 05:00 Temperature Pulse Rate 86 87 87 Respiratory Rate 21 21 22 Blood Pressure 154/72 H 141/66 H Pulse Oximetry 98 98 97 08/11/18 06:00 08/11/18 07:00 08/11/18 08:00 Temperature 99.5 F Pulse Rate 84 59 L Respiratory Rate 22 15 Blood Pressure 149/66 H 154/78 H Pulse Oximetry 95 84 L 94 L 08/11/18 10:00 08/11/18 12:00 08/11/18 14:00 Temperature 99 F Pulse Rate 94 H 81 83 Respiratory Rate 18 Blood Pressure 116/58 L Pulse Oximetry 97 08/11/18 16:00 Temperature 98.1 F Pulse Rate 77 Respiratory Rate 30 H Blood Pressure 130/62 Pulse Oximetry 97 Intake & Output 08/11/18 08/11/18 08/12/18 06:59 18:59 06:59 Intake Total 350 / 350 100 / 100 Output Total 1400 / 1400 Balance -1050 / -1050 100 / 100 Weight 89 kg Intake: IV 100 / 100 100 / 100 SoluMEDROL Inj 250 MG In NS Inj 100 / 100 96 ML @ 200 mls/hr IV.SIG DAILY MERON Rx#:[id number] NS Inj 250 ML @ 15 mls/hr IV. 100 / 100 SIG ONCE MERON Rx#:[id number] Oral 250 / 250 Output: Urine 1400 / 1400 Other: Date of Last Bowel Movement 08/10/18 08/10/18 # Incontinent Bowel Movements 2 <Mounika Ambrocio - Last Filed: 08/11/18 19:13> Results - Labs CBC & Chem 7: 08/11/18 04:56 08/11/18 04:56 Laboratory Results - last 24 hr 08/10/18 08/10/18 08/10/18 13:08 15:27 16:27 WBC 17.9 H RBC 2.83 L Hgb 8.0 L Hct 24.6 L MCV 86.8 MCH 28.1 MCHC 32.4 RDW 16.9 Plt Count 20 L D MPV 10.6 Prelim Diff (Auto) Slide review pending Neut % (Auto) 92.9 H Lymph % (Auto) 1.7 L [place] % (Auto) 5.3 Eos % (Auto) 0.0 Baso % (Auto) 0.1 Neut # (Auto) 16.6 H Lymph # (Auto) 0.3 L [place] # (Auto) 1.0 H Eos # (Auto) 0.0 Baso # (Auto) 0.0 WBC Differential . Diff Scan Auto diff confirmed Seg Neuts % (Manual) Band Neuts % (Manual) Lymphocytes % (Manual) Monocytes % (Manual) Abs Neuts (Manual) Differential Comment . Toxic Granulation Platelet Estimate Low L Platelet Morphology Normal Polychromasia Ovalocytes 1+ H Sodium Potassium Chloride Carbon Dioxide Anion Gap BUN Creatinine Estimated GFR POC Glucose 417 H Random Glucose Calcium Phosphorus Magnesium Bld Prod Order Comment 08/10/18 08/11/18 08/11/18 21:12 04:56 04:56 WBC 16.0 H RBC 2.96 L Hgb 8.5 L Hct 25.8 L MCV 87.2 MCH 28.6 MCHC 32.8 RDW 17.1 Plt Count 28 L D MPV 11.0 Prelim Diff (Auto) Slide review pending Neut % (Auto) 90.8 H Lymph % (Auto) 2.6 L [place] % (Auto) 6.4 Eos % (Auto) 0.0 Baso % (Auto) 0.2 Neut # (Auto) 14.6 H Lymph # (Auto) 0.4 L [place] # (Auto) 1.0 H Eos # (Auto) 0.0 Baso # (Auto) 0.0 WBC Differential Manual diff final Diff Scan Seg Neuts % (Manual) 88 H Band Neuts % (Manual) 8 H Lymphocytes % (Manual) 2 L Monocytes % (Manual) 2 Abs Neuts (Manual) 15.4 H Differential Comment . Toxic Granulation 1+ H Platelet Estimate Low L Platelet Morphology Normal Polychromasia 2.1 H Ovalocytes Sodium 137 Potassium 3.9 Chloride 102 Carbon Dioxide 27.6 Anion Gap 7 BUN 30 H Creatinine 0.88 Estimated GFR 83 L POC Glucose 379 H Random Glucose 95 Calcium 8.2 L Phosphorus 2.5 Magnesium 1.9 Bld Prod Order Comment 08/11/18 08:41 WBC RBC Hgb Hct MCV MCH MCHC RDW Plt Count MPV Prelim Diff (Auto) Neut % (Auto) Lymph % (Auto) [place] % (Auto) Eos % (Auto) Baso % (Auto) Neut # (Auto) Lymph # (Auto) [place] # (Auto) Eos # (Auto) Baso # (Auto) WBC Differential Diff Scan Seg Neuts % (Manual) Band Neuts % (Manual) Lymphocytes % (Manual) Monocytes % (Manual) Abs Neuts (Manual) Differential Comment Toxic Granulation Platelet Estimate Platelet Morphology Polychromasia Ovalocytes Sodium Potassium Chloride Carbon Dioxide Anion Gap BUN Creatinine Estimated GFR POC Glucose 98 Random Glucose Calcium Phosphorus Magnesium Bld Prod Order Comment - Imaging Impressions Head CT 08/10/18 00:00 CONCLUSION: 1. Negative CT Head non contrast. . <Ekta Wan - Last Filed: 08/11/18 13:52> - Labs CBC & Chem 7: 08/11/18 04:56 08/11/18 04:56 Laboratory Results - last 24 hr 08/10/18 08/11/18 08/11/18 21:12 04:56 04:56 WBC 16.0 H RBC 2.96 L Hgb 8.5 L Hct 25.8 L MCV 87.2 MCH 28.6 MCHC 32.8 RDW 17.1 Plt Count 28 L D MPV 11.0 Prelim Diff (Auto) Slide review pending Neut % (Auto) 90.8 H Lymph % (Auto) 2.6 L [place] % (Auto) 6.4 Eos % (Auto) 0.0 Baso % (Auto) 0.2 Neut # (Auto) 14.6 H Lymph # (Auto) 0.4 L [place] # (Auto) 1.0 H Eos # (Auto) 0.0 Baso # (Auto) 0.0 WBC Differential Manual diff final Seg Neuts % (Manual) 88 H Band Neuts % (Manual) 8 H Lymphocytes % (Manual) 2 L Monocytes % (Manual) 2 Abs Neuts (Manual) 15.4 H Differential Comment . Toxic Granulation 1+ H Platelet Estimate Low L Platelet Morphology Normal Polychromasia 2.1 H Sodium 137 Potassium 3.9 Chloride 102 Carbon Dioxide 27.6 Anion Gap 7 BUN 30 H Creatinine 0.88 Estimated GFR 83 L POC Glucose 379 H Random Glucose 95 Hemoglobin A1c Calcium 8.2 L Phosphorus 2.5 Magnesium 1.9 08/11/18 08/11/18 08/11/18 04:56 08:41 14:00 WBC RBC Hgb Hct MCV MCH MCHC RDW Plt Count MPV Prelim Diff (Auto) Neut % (Auto) Lymph % (Auto) [place] % (Auto) Eos % (Auto) Baso % (Auto) Neut # (Auto) Lymph # (Auto) [place] # (Auto) Eos # (Auto) Baso # (Auto) WBC Differential Seg Neuts % (Manual) Band Neuts % (Manual) Lymphocytes % (Manual) Monocytes % (Manual) Abs Neuts (Manual) Differential Comment Toxic Granulation Platelet Estimate Platelet Morphology Polychromasia Sodium Potassium Chloride Carbon Dioxide Anion Gap BUN Creatinine Estimated GFR POC Glucose 98 306 H Random Glucose Hemoglobin A1c 6.8 H Calcium Phosphorus Magnesium 08/11/18 18:39 WBC RBC Hgb Hct MCV MCH MCHC RDW Plt Count MPV Prelim Diff (Auto) Neut % (Auto) Lymph % (Auto) [place] % (Auto) Eos % (Auto) Baso % (Auto) Neut # (Auto) Lymph # (Auto) [place] # (Auto) Eos # (Auto) Baso # (Auto) WBC Differential Seg Neuts % (Manual) Band Neuts % (Manual) Lymphocytes % (Manual) Monocytes % (Manual) Abs Neuts (Manual) Differential Comment Toxic Granulation Platelet Estimate Platelet Morphology Polychromasia Sodium Potassium Chloride Carbon Dioxide Anion Gap BUN Creatinine Estimated GFR POC Glucose 512 H* Random Glucose Hemoglobin A1c Calcium Phosphorus Magnesium - Imaging Impressions Humerus CT 08/11/18 00:00 CONCLUSION: 1. Nonacute appearing right-sided rib fractures. 2. No evidence for humerus fracture. 3. Note is made of ascites in the upper abdomen. <CristóbalMounika - Last Filed: 08/11/18 19:13> Assessment and Plan - Plan Bright red blood per rectum No more bleeding since yesterday afternoon. hgb today 8.1. Received 5 units of blood Has never had an EGD or colonoscopy. Denies taking any blood thinners. 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 Prostate cancer status post 45 treatments of radiation completed in July 2017 and patient reports once a month injections that he finished in April of this year. Thrombocytopeniaplatelet count currently 16. Patient does have history of thrombocytopenia but has never been this low according to previous chart review. States that he has not seen a consumer studies professor or oncologist in the past. Oncology on the case, plt today is 16 s/p 4 units of plt IV steroids, status post immunoglobulin on 08/04/2018. ? Ritxuan/Cytoxan 08/07/2018 patient continues in the intensive care setting, maroon stool x1, no further bleeding today. Hemoglobin appears stable at 8. Patient talkative and appears slightly anxious and overwhelmed by his current condition. States he never had any heart problems before. Currently has no nausea no vomiting no abdominal pain and no abdominal cramping. Discussed with patient possible colonoscopy when he is more stable and feeling better, platelet count 28, mild gradual trend up. Status post prostate cancer with radiation, which could contribute to patient's thrombocytopenia. Will continue HC suppositories for now to assist with any proctitis. Explained to patient 08/08/2018 patient is sitting up in a chair and appears more alert today. Denies any abdominal pain but questionable constipation. Patient notes small bowel movement yesterday and is sometimes incontinent in the bed with stool but minimal amount. Discussed with patient the need for bowel regimen and no straining at this time since he had bright red rectal bleeding initially. Patient's platelet count has declined again today to 14, hemoglobin is 7.8 from last check of 8. Albumin 2.6, bilirubin and LFTs unremarkable for now. No further rectal bleeding at this time. 08/09/2018 patient has decrease in hemoglobin again today 6.91 unit of packed RBCs and 1 unit of platelets is pending currently has continued to have decrease in platelet count again 13 this a.m. stool within the past 24 hours did have some blood surrounding and patient states small amount of blood when wiping. Still requesting that suppositories are aggravating and could be causing more irritation on insertion. Will discontinue for now May consider sigmoidoscopy with [facility] if patient continues to have rectal bleeding possibly hemorrhoid related. Will monitor platelet level in a.m. 08/10/2018 08/09/2018 hemoglobin 7.8 hematocrit 23.3 platelet count 50, today's hematology specimen pending. We will continue to monitor platelet level in order to proceed with GI intervention. Nurse reports patient had small amount of blood noted on tissue after BM this a.m. 06/11/2018 platelet count continues to wax and wane currently 28 today, hemoglobin 8.5 mild decrease in WBC count 16. No abdominal pain but does appear to have some mild abdominal distention with soft bowel sounds. According to the note cardiology has signed off. GI is pending colonoscopy when platelet count is stable, 50 or greater. No further obvious rectal bleeding. 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 Ambrocio, note was written on her behalf <Ekta Wan - Last Filed: 08/11/18 13:52> - Attending Attestation seen, examined agree with above gi will sign off for now call us when cleared for colonoscopy if active bleeding <Mounika Ambrocio - Last Filed: 08/11/18 19:13>
[2018-08-11] MEDS: Insulin NovoLOG Aspart Correctional Sugar Inj SQ SCH ×4 (14:07→21:48)
--- NOTE | 2018-08-11 15:28 | CT ---
EXAM DATE: 08/11/2018 2:25 PM EDT AGE/SEX: 83 years / Male INDICATIONS: Right arm and shoulder pain. CLINICAL DATA: This is the patient's initial encounter. Patient reports that signs and symptoms have been present for 1 day and indicates a pain score of 7/10. MEDICAL/SURGICAL HISTORY: Diabetes. None. RADIATION DOSE: 33.16 CTDI (mGy) COMPARISON: [facility], CHEST 1V SINGLE AP, 08/07/2018. . TECHNIQUE: Multiple contiguous axial images were acquired using a multirow detector CT scanner witho ut contrast. Multiplanar reconstruction was performed in the sagittal and coronal planes. Using aut omated exposure control and adjustment of the mA and/or kV according to patient size, radiation dose was kept as low as reasonably achievable to obtain optimal diagnostic quality images. DICOM format i mage data is available electronically for review and comparison. FINDINGS: Bones: The bony structures are intact. No evidence of the humerus fracture. Subacute to chronic nonun ited right-sided rib fractures are noted. Joints: No significant arthropathy seen. Soft Tissues: Unremarkable for a non-contrast study. Other: No foreign bodies seen. CONCLUSION: 1. Nonacute appearing right-sided rib fractures. 2. No evidence for humerus fracture. 3. Note is made of ascites in the upper abdomen. Electronically signed by: Ramone Washington MD 08/11/2018 3:26 PM EDT
[2018-08-11 16:16] LABS: Hemoglobin A1c 6.8 % (4.3-6.0)
--- NOTE | 2018-08-11 16:24 | MB ---
cc: Benedicto Emery MD DATE: 08/11/2018 HISTORY OF PRESENT ILLNESS: Mr. Butterfield is seen in room 510. He is agitated because of pain in his shoulders and is requesting pain medication and claims that he did not receive sufficient pain medication overnight, but other than that, he is not bleeding or bruising actively at this time. He has no fevers and no new complaints. REVIEW OF SYSTEMS: No headaches or blurring of vision. Aches and pains in the shoulders as mentioned. No cough, chest pain or shortness of breath. No nose or oropharyngeal bleeding. No blood in stool or black stools. No abdominal pain or distention. PHYSICAL EXAMINATION: GENERAL: The patient is in moderate distress secondary to pain. Pallor present. No icterus. No palpable adenopathy in the neck or axilla. HEENT: Without oropharyngeal bleeding EXTREMITIES: Chronic bruises in the upper extremities. None on the lower. No petechiae. Rest of the examination not performed today. I reviewed labs and treatment options with the patient. 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 Prior to that, he received 2 doses of IVIG with modest response. At this point, his platelets are stable at 28,000. He is not actively bleeding and his hemoglobin is stable. Hence, I will hold off on further immunoglobulin or additional treatment and continue the current dose of steroids and if there is further drop in platelets below 20,000 in the next ensuing days, he will need to be retreated with IVIG until his next dose of Nplate is due on 08/16/2018. In the interim, if he has evidence of active bleeding, he could be transfused with platelets only in the event of active bleeding. He will be followed up in the hospital. MD MICH Clarke/marcos , 03:47 PM , 03:54 PM
[2018-08-12] MEDS ORDERED: Naloxone Inj 0.4 MG/ML Vial IV.PUSH PRN (07:21)
--- NOTE | 2018-08-12 07:25 | P.PN ---
Subjective Interval history: Follow-up diabetes mellitus. Patient hyperglycemic on IV steroid A1c 6.8. Neck , shoulder pain [employer] from fall sustained rib fx. Was referred to pain specialist Physical Exam Vital signs: Vital Signs 08/11/18 08:00 08/11/18 10:00 08/11/18 12:00 Temperature 99.5 F 99 F Pulse Rate 59 L 94 H 81 Respiratory Rate 15 18 Blood Pressure 154/78 H 116/58 L Pulse Oximetry 94 L 97 08/11/18 14:00 08/11/18 16:00 08/11/18 18:00 Temperature 98.1 F Pulse Rate 83 77 69 Respiratory Rate 30 H Blood Pressure 130/62 Pulse Oximetry 97 08/11/18 19:00 08/11/18 19:01 08/11/18 20:00 Temperature 97.7 F Pulse Rate 84 88 89 Respiratory Rate 21 26 H 26 H Blood Pressure 149/62 H 153/67 H Pulse Oximetry 98 97 98 08/11/18 21:00 08/11/18 22:00 08/11/18 23:00 Temperature Pulse Rate 79 78 79 Respiratory Rate 36 H 37 H 31 H Blood Pressure 150/67 H 139/62 146/67 H Pulse Oximetry 97 92 L 97 08/12/18 00:00 08/12/18 01:00 08/12/18 02:00 Temperature Pulse Rate 79 109 H 98 H Respiratory Rate 31 H 19 18 Blood Pressure 146/64 H 137/91 H 147/70 H Pulse Oximetry 93 L 98 96 08/12/18 03:00 08/12/18 04:00 08/12/18 06:00 Temperature 98.7 F Pulse Rate 88 86 84 Respiratory Rate 19 36 H Blood Pressure 124/60 135/64 Pulse Oximetry 94 L 94 L 08/12/18 06:23 Temperature Pulse Rate Respiratory Rate Blood Pressure Pulse Oximetry 97 Intake & Output 08/11/18 08/12/18 08/12/18 18:59 06:59 18:59 Intake Total 700 / 700 480 / 480 Output Total 1300 / 1300 650 / 650 Balance -600 / -600 -170 / -170 Weight 85 kg Intake: IV 100 / 100 SoluMEDROL Inj 250 MG In NS Inj 100 / 100 96 ML @ 200 mls/hr IV.SIG DAILY [facility] Rx#:[id number] Oral 550 / 550 480 / 480 Other 50 / 50 Output: Urine 1300 / 1300 650 / 650 Stool 0 / 0 Urine/Stool Mix 0 / 0 Other: # Voids 6 # Incontinent Voids 1 Date of Last Bowel Movement 08/10/18 08/10/18 # Bowel Movements 0 0 # Incontinent Bowel Movements 2 Narrative: GENERAL: Patient is 83 yo lying in bed in distress 2/2 pain SKIN: Warm and dry. Multiple ecchymoses bilateral upper extremities CARDIOVASCULAR: Regular rate and rhythm RESPIRATORY: equal chest rise. No accessory muscle use. GASTROINTESTINAL: Abdomen soft, non-tender, nondistended. MUSCULOSKELETAL: No significant peripheral edema. Tender right shoulder with slight swelling no redness or warmth. Limited passive range of motion with flexion and abduction. Also tender left shoulder and neck Neuro: Alert and oriented. no focal deficits. sensation grossly intact. WENDY 5/5 in all 4 extremities except right upper extremity secondary to shoulder pain Results - Labs CBC & Chem 7: 08/11/18 04:56 08/11/18 19:46 Laboratory Results - last 24 hr 08/11/18 08/11/18 08/11/18 04:56 04:56 04:56 WBC Differential Manual diff final Seg Neuts % (Manual) 88 H Band Neuts % (Manual) 8 H Lymphocytes % (Manual) 2 L Monocytes % (Manual) 2 Abs Neuts (Manual) 15.4 H Toxic Granulation 1+ H Platelet Estimate Low L Platelet Morphology Normal Polychromasia 2.1 H Sodium 137 Potassium 3.9 Chloride 102 Carbon Dioxide 27.6 Anion Gap 7 BUN 30 H Creatinine 0.88 Estimated GFR 83 L POC Glucose Random Glucose 95 Hemoglobin A1c 6.8 H Calcium 8.2 L Phosphorus 2.5 Magnesium 1.9 08/11/18 08/11/18 08/11/18 08:41 14:00 18:39 WBC Differential Seg Neuts % (Manual) Band Neuts % (Manual) Lymphocytes % (Manual) Monocytes % (Manual) Abs Neuts (Manual) Toxic Granulation Platelet Estimate Platelet Morphology Polychromasia Sodium Potassium Chloride Carbon Dioxide Anion Gap BUN Creatinine Estimated GFR POC Glucose 98 306 H 512 H* Random Glucose Hemoglobin A1c Calcium Phosphorus Magnesium 08/11/18 08/11/18 19:46 21:39 WBC Differential Seg Neuts % (Manual) Band Neuts % (Manual) Lymphocytes % (Manual) Monocytes % (Manual) Abs Neuts (Manual) Toxic Granulation Platelet Estimate Platelet Morphology Polychromasia Sodium Potassium Chloride Carbon Dioxide Anion Gap BUN Creatinine Estimated GFR POC Glucose 339 H Random Glucose 324 H D Hemoglobin A1c Calcium Phosphorus Magnesium - Imaging Impressions Humerus CT 08/11/18 00:00 CONCLUSION: 1. Nonacute appearing right-sided rib fractures. 2. No evidence for humerus fracture. 3. Note is made of ascites in the upper abdomen. Assessment and Plan - Plan Severe thrombocytopenia - ITP Acute normocytic anemia GI bleed Hyperglycemia secondary to steroid Hx DM, A1c 6.[address] abd. Hx Prostate ca s/p radiation tx. Acute systolic heart failure Atrial flutter Elevated AST Hypoalbuminemia Right shoulder pain with limited range of motion, left shoulder and nec pain and tenderness s/p fall with right rib fx. Encephalopathy Plan Neuro: head CT 08/10: negative acute bleed. Somnolence resolved. Monitor neuro status and avoid sedatives. Pulm: Continue with Oxygen keep sats >92% Albuterol/ipratropium aerosols every 6 hours with albuterol aerosols every 2 hours as needed dyspnea CV: Monitor HR and BP keep MAP>65mmHg Echo showed severe LV dysfunction with EF 30-35%. Repeat echocardiogram in 3 months Continue Lisinopril 2.5mg daily and carvedilol 3.125mg BID. Not a candidate for ASA or systemic anticoagulation due to severe thrombocytopenia. Will also need ischemic evaluation when patient more stable and hematologic abnormalities improved Cards ff-Dr. Nation : Monitor renal function, I/O's, electrolytes replacement per protocol. Continue tamsulosin 0.4 mg daily GI: On PO cardiac diet. IV pantoprazole 40mg BID switched to p.o. GI is following. Per nursing, patient refused hydrocortisone supp BID. Possible endoscopy in future when stable and platelet count over 50,000 ID: Monitor for signs of infections ( fever, WBC) Panculture if spikes a fever Heme: Monitor CBC, coags, s/p transfusion 6u PRBC and 6 u PLT since admission: Hematology is following- received IVIG x 2 and Nplate on methylprednisolone succinate 250mg IV Q24, will clarify with hematology if steroid can be weaned as patient is hyperglycemic Haptoglobin was 117. LDH was elevated to 71. UA negative for hemolysis. Endo: Restart metformin, Januvia and Actos. Decrease Levemir to 15 units. SSC and hypoglycemia protocol Musc: Unremarkable right shoulder CT. Check neck CT. Continue PT , pain mgt counselled re narcs DVT GI prophylaxis -Teds SCDs -No pharmacological DVT prophylaxis due to severe thrombocytopenia and GI bleed -Pantoprazole twice daily stable to transfer out of ICU to step-down unit.
[2018-08-12] MEDS: Insulin NovoLOG Aspart Correctional Sugar Inj SQ SCH ×4 (09:29→20:03)
[2018-08-12] MEDS: Lisinopril 5 MG Tablet PO SCH (09:29)
[2018-08-12] MEDS: Nystatin/Diphenhydramine/Lidocaine Mouthwash (Adult) 120 ML Botttle SWISH-SWAL SCH ×4 (09:30→23:44)
[2018-08-12] MEDS: Senna/Docusate Sodium 8.6/50 MG Tablet PO SCH ×2 (09:30→20:05)
[2018-08-12] MEDS: SODIUM CHLOR 0.9% IV.SIG SCH (09:31)
[2018-08-12] MEDS: METHYLPREDNISOLONE SOD SUC IV.SIG SCH (09:31)
[2018-08-12] MEDS: Insulin Detemir Inj 1,000 UNIT/10 ML Vial SQ SCH ×3 (09:31→20:03)
[2018-08-12] MEDS: Polyethylene Glycol 3350 17 GM Packet PO SCH (09:32)
[2018-08-12] MEDS: Morphine Inj 4 MG/ML Vial IV.PUSH PRN (10:29)
--- NOTE | 2018-08-12 11:34 | CT ---
EXAM DATE: 08/12/2018 10:43 AM EDT AGE/SEX: 83 years / Male INDICATIONS: Neck pain. CLINICAL DATA: This is the patient's initial encounter. Patient reports that signs and symptoms have been present for 1 day and indicates a pain score of Nonresponsive. MEDICAL/SURGICAL HISTORY: Diabetes. None. RADIATION DOSE: 22.78 CTDI (mGy) COMPARISON: No prior exams available for comparison. TECHNIQUE: Contiguous axial images were obtained using helical multirow detector technique. The vol umetric data was post-processed with multiplanar reconstruction in oblique axial, sagittal, and coron al planes. Using automated exposure control and adjustment of the mA and/or kV according to patient s ize, radiation dose was kept as low as reasonably achievable to obtain optimal diagnostic quality jarod ges. DICOM format image data is available electronically for review and comparison. FINDINGS: Vertebrae: Normal vertebral body height. Discs: Degenerative disc changes are present greatest at C5-6 level with disc space narrowing and hyp ertrophic change. Alignment: There is mild retrolisthesis of C5 on C6 of several cysts millimeters. There is mild ante rior retrolisthesis of C4 on C5 approximately 2 mm. Degenerative changes noted in the atlantoaxial carlos int. C2-3: The bony spinal canal is normal in size. No evidence of disc bulge or herniation. There is mo derate narrowing of left neural foramina secondary to degenerative change involving the uncovertebral joint and facet. C3-4: There is a mild disc osteophyte complex with mild flattening the anterior thecal sac and no fo hal protrusion. There is mild to moderate narrowing of left neural foramina. There are hypertrophic c hanges involving the left facet joint. C4-5: The bony spinal canal is normal in size. No evidence of disc bulge or herniation. The neural foramina are bilaterally patent. C5-6: There is a broad-based posterior disc osteophyte complex with mass effect on the anterior thec al sac. This comes in close contact with the cord which is poorly visualized. There is moderate narro wing of the right neural foramina. The left is patent. C6-7: The bony spinal canal is normal in size. No evidence of disc bulge or herniation. The neural foramina are bilaterally patent. C7-T1: The bony spinal canal is normal in size. No evidence of disc bulge or herniation. The neura l foramina are bilaterally patent. CONCLUSION: 1. Degenerative disc change at C5-C6 with broad-based disc osteophyte complex with mass effect on th e anterior thecal sac. This comes in close contact with the anterior cord which is poorly visualized. 2. Mild anterior spondylolisthesis of C4 on C5 approximately 2 mm. There is mild retrolisthesis of C 5 on C6. 3. Mild disc osteophyte complex at C3-4. 4. Narrowing of the left neural foramina at C2-3 and C3-4 levels as well as narrowing of the right n eural foramina at C5-6. Electronically signed by: Marvel Fraga MD 08/12/2018 11:32 AM EDT
--- NOTE | 2018-08-12 11:36 | P.PNONC ---
Subjective Interval history: Patient just arrived back to room from CT neck, for continued points of neck pain. Patient lethargic, awakens briefly to voice. States "not feeling so hot". Discussed with nurse, she has called lab-awaiting his a.m. lab draw. She states there has been no signs of bleeding. Dr. Mina inquiring when the steroids can start being tapered, as the patient has had increased blood glucose , yesterday 512. Objective Vital Signs/Intake & Output: Vital Signs 08/11/18 12:00 08/11/18 14:00 08/11/18 16:00 Temperature 99 F 98.1 F Pulse Rate 81 83 77 Respiratory Rate 18 30 H Blood Pressure 116/58 L 130/62 Pulse Oximetry 97 97 08/11/18 18:00 08/11/18 19:00 08/11/18 19:01 Temperature Pulse Rate 69 84 88 Respiratory Rate 21 26 H Blood Pressure 149/62 H Pulse Oximetry 98 97 08/11/18 20:00 08/11/18 21:00 08/11/18 22:00 Temperature 97.7 F Pulse Rate 89 79 78 Respiratory Rate 26 H 36 H 37 H Blood Pressure 153/67 H 150/67 H 139/62 Pulse Oximetry 98 97 92 L 08/11/18 23:00 08/12/18 00:00 08/12/18 01:00 Temperature Pulse Rate 79 79 109 H Respiratory Rate 31 H 31 H 19 Blood Pressure 146/67 H 146/64 H 137/91 H Pulse Oximetry 97 93 L 98 08/12/18 02:00 08/12/18 03:00 08/12/18 04:00 Temperature 98.7 F Pulse Rate 98 H 88 86 Respiratory Rate 18 19 36 H Blood Pressure 147/70 H 124/60 135/64 Pulse Oximetry 96 94 L 94 L 08/12/18 06:00 08/12/18 06:23 08/12/18 08:41 Temperature Pulse Rate 84 Respiratory Rate Blood Pressure Pulse Oximetry 97 94 L Intake & Output 08/11/18 08/12/18 08/12/18 18:59 06:59 18:59 Intake Total 700 / 700 480 / 480 Output Total 1300 / 1300 650 / 650 Balance -600 / -600 -170 / -170 Weight 85 kg Intake: IV 100 / 100 SoluMEDROL Inj 250 MG In NS Inj 100 / 100 96 ML @ 200 mls/hr IV.SIG DAILY [facility] Rx#:[id number] Oral 550 / 550 480 / 480 Other 50 / 50 Output: Urine 1300 / 1300 650 / 650 Stool 0 / 0 Urine/Stool Mix 0 / 0 Other: # Voids 6 # Incontinent Voids 1 Date of Last Bowel Movement 08/10/18 08/10/18 # Bowel Movements 0 0 # Incontinent Bowel Movements 2 Result Diagrams: 08/12/18 12:15 08/12/18 12:15 Laboratory Results: Laboratory Results - last 24 hr 08/11/18 08/11/18 08/11/18 04:56 14:00 18:39 POC Glucose 306 H 512 H* Random Glucose Hemoglobin A1c 6.8 H 08/11/18 08/11/18 08/12/18 19:46 21:39 09:28 POC Glucose 339 H 104 Random Glucose 324 H D Hemoglobin A1c Imaging Studies: Impressions Humerus CT 08/11/18 00:00 CONCLUSION: 1. Nonacute appearing right-sided rib fractures. 2. No evidence for humerus fracture. 3. Note is made of ascites in the upper abdomen. Medications: Active Medications Generic Name Dose Route Start Last Admin Trade Name Freq PRN Reason Stop Dose Admin Acetaminophen 650 mg 08/02/18 04:18 08/10/18 03:05 Tylenol PO 650 mg Q6H PRN Administration PAIN 1-2 OR FEVER >101F Carvedilol 3.125 mg 08/05/18 09:00 08/12/18 09:30 Coreg PO 3.125 mg BID [facility] Administration Potassium Chloride 20 meq in 100 mls @ 50 mls/hr 08/05/18 08:03 08/05/18 17: 14 Kcl 20 Meq Premix Inj IV.SIG Infused Q2H PRN Infusion For Potassium 2.8 - 3.2 mEq/L Potassium Phosphate 30 mmol/ 260 mls @ 42 mls/hr 08/05/18 08:03 08/07/18 11: 42 Sodium Chloride IV.SIG Infused UNSCH PRN Infusion SEE LABEL COMMENTS Methylprednisolone Sodium 100 mls @ 200 mls/hr 08/07/18 09:00 08/12/18 09:31 Succinate 250 mg/ Sodium IV.SIG 200 mls/hr Chloride DAILY [facility] Administration Insulin Aspart 0 unit 08/08/18 12:00 08/12/18 09:29 Novolog Insulin Correctional Sugar Inj SQ Not Given ACHS [facility] Protocol Lisinopril 2.5 mg 08/05/18 09:00 08/12/18 09:29 Prinivil PO 2.5 mg DAILY [facility] Administration Metformin HCl 1,000 mg 08/12/18 09:00 08/12/18 09:30 Glucophage PO 1,000 mg BID [facility] Administration Morphine Sulfate 2 mg 08/12/18 07:21 08/12/18 10:29 Morphine Inj IV.PUSH 2 mg Q3H PRN Administration BREAKTHROUGH PAIN Multi-Ingredient Mouthwash/Gargle 10 ml 08/08/18 18:00 08/12/18 09:30 Magic Mouthwash Adult Liq SWISH-SWAL 10 ml QID [facility] Administration Pantoprazole Sodium 40 mg 08/11/18 21:00 08/12/18 09:31 Protonix PO 40 mg BID [facility] Administration Pioglitazone HCl 45 mg 08/12/18 09:00 08/12/18 10:29 Actos PO 45 mg DAILY [facility] Administration Polyethylene Glycol 17 gm 08/08/18 11:45 08/12/18 09:32 Miralax PO 17 gm DAILY [facility] Administration Potassium Bicarb/Potassium Chloride 50 meq 08/05/18 08:43 08/07/18 22:30 K-Lyte Cl Eff PO 50 meq UNSCH PRN Administration For Potassium 3.3 - 3.5 mEq/L Potassium Phosphate 2,000 mg 08/05/18 08:03 08/06/18 15:48 K-Phos Original PO 2,000 mg Q4H PRN Administration Phosphorus Less Than 2.5 mg/dL Romiplostim 89 mcg 08/09/18 10:00 08/09/18 09:40 Nplate Inj SQ 89 mcg Q7D [facility] Administration Senna/Docusate Sodium 1 tab 08/02/18 09:00 08/12/18 09:30 Lisa-Colace PO 1 tab BID [facility] Administration Sitagliptin Phosphate 100 mg 08/12/18 09:00 08/12/18 10:29 Januvia PO 100 mg DAILY [facility] Administration Sodium Chloride 2 ml 08/02/18 09:00 08/12/18 09:30 Ns Flush IV.FLUSH 2 ml BID [facility] Administration Sodium Chloride 2 ml 08/02/18 04:18 08/06/18 09:37 Ns Flush IV.FLUSH 2 ml PRN PRN Administration FLUSH AFTER USING IV ACCESS Tamsulosin HCl 0.4 mg 08/02/18 09:00 08/12/18 09:30 Flomax PO 0.4 mg DAILY [facility] Administration Objective Remarks: GENERAL: Ill-appearing elderly male patient, in no acute distress. +Lethargic. SKIN: Pale, warm and dry. Bruises to bilateral arms. HEAD: Normocephalic. EYES: No scleral icterus. No injection or drainage. NECK: Supple, trachea midline. CARDIOVASCULAR: Regular rate and rhythm without murmurs. RESPIRATORY: Breath sounds clear, equal bilaterally. Nonlabored at rest. GASTROINTESTINAL: Abdomen soft, distended, non-tender. EXTREMITIES: No cyanosis, or edema. MUSCULOSKELETAL: Decreased muscle tone. NEUROLOGICAL: Sleeping, awakens briefly. Assessment/Plan - Plan Mr. Butterfield is a pleasant 83-year-old male patient who is currently hospitalized for a GI bleed. Hematology was consulted for severe thrombocytopenia. 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 Plan: 1. Acute ITP. Status post immunoglobulin on 08/04 & 08/08 and Nplate on . Continues on Solu-Medrol. CBC yesterday showed improvement with a hemoglobin of 8.5 and platelets of 28,000. CBC pending today, RN has discussed with lab. 2. GI bleed, management per gastroenterology. Discussed with RN, no obvious signs of bleeding. No bowel movements. 3. Thrush, continue Magic mouthwash. 4. Elevated blood glucose, secondary to steroids, will taper off steroids. 5. Repeat CBC in the a.m.
[2018-08-12 13:26] LABS: Baso % (Auto) 0.1 % (0.0-2.0); Hematocrit 26.1 % (39.0-51.0); Hemoglobin 8.7 gm/dL (13.0-17.0); Lymph # (Auto) 0.3 th/mm3 (1.0-4.8); Lymph % (Auto) 1.6 % (9.0-44.0); Mean Corpuscular HGB Conc 33.4 % (32.0-36.0); Mean Corpuscular Hemoglobin 28.6 pg (27.0-34.0); Mean Corpuscular Volume 85.6 fL (80.0-100.0); Mean Platelet Volume 11.5 fL (7.0-11.0); Mono # (Auto) 0.9 th/mm3 (0.0-0.9); Mono % (Auto) 5.5 % (0.0-8.0); Neut # (Auto) 15.8 th/mm3 (1.8-7.7); Neut % (Auto) 92.8 % (16.0-70.0); Platelet Count 24 th/mm3 (150-450); Red Blood Count 3.05 mil/mm3 (4.50-5.90); Red Cell Distribution Width 16.9 % (11.6-17.2); White Blood Count 17.1 th/mm3 (4.0-11.0)
[2018-08-12 13:51] LABS: Calcium 8.2 mg/dL (8.5-10.1); Carbon Dioxide 24.5 meq/L (21.0-32.0); Monocytes 2 % (0-8); Ovalocytes 1+; Plasma Cells 1 % (0-0); Potassium 4.1 meq/L (3.5-5.1); Toxic Granulation 2+
[2018-08-13] MEDS: Morphine Inj 4 MG/ML Vial IV.PUSH PRN (00:47)
--- NOTE | 2018-08-13 07:08 | XR ---
EXAM DATE: 08/13/2018 5:29 AM EDT AGE/SEX: 83 years / Male INDICATIONS: New onset of congestion. CLINICAL DATA: This is the patient's subsequent encounter. Patient reports that signs and symptoms h ave been present for 1 week and indicates a pain score of 0/10. MEDICAL/SURGICAL HISTORY: Diabetes. Dementia. Carcinoma, prostatic. None. [place] [facility] [place]. . FINDINGS: A single AP view of the chest demonstrates cardiomegaly and minimal left basilar density. Right lung relatively clear. Increase in pulmonary vascularity.. The cardiomediastinal contours are unremarkabl e. Osseous structures are intact. CONCLUSION: Cardiomegaly and minimal left basilar density. Electronically signed by: John Guzman MD 08/13/2018 7:06 AM EDT
[2018-08-13 09:48] LABS: Baso % (Auto) 0.1 % (0.0-2.0); Hematocrit 30.7 % (39.0-51.0); Lymph # (Auto) 0.2 th/mm3 (1.0-4.8); Lymph % (Auto) 1.3 % (9.0-44.0); Mean Corpuscular HGB Conc 32.6 % (32.0-36.0); Mean Corpuscular Hemoglobin 28.2 pg (27.0-34.0); Mean Corpuscular Volume 86.3 fL (80.0-100.0); Mean Platelet Volume 10.3 fL (7.0-11.0); Neut % (Auto) 93.6 % (16.0-70.0); Platelet Count 22 th/mm3 (150-450); Red Blood Count 3.55 mil/mm3 (4.50-5.90); Red Cell Distribution Width 17.2 % (11.6-17.2); White Blood Count 19.2 th/mm3 (4.0-11.0)
[2018-08-13] MEDS: METHYLPREDNISOLONE SOD SUC IV.SIG SCH (09:53)
[2018-08-13] MEDS: SODIUM CHLOR 0.9% IV.SIG SCH (09:53)
[2018-08-13] MEDS: Insulin Detemir Inj 1,000 UNIT/10 ML Vial SQ SCH ×2 (09:53→20:34)
[2018-08-13] MEDS: Insulin NovoLOG Aspart Correctional Sugar Inj SQ SCH ×4 (09:54→20:22)
[2018-08-13] MEDS: Lisinopril 5 MG Tablet PO SCH (09:54)
[2018-08-13] MEDS: Polyethylene Glycol 3350 17 GM Packet PO SCH (09:57)
[2018-08-13] MEDS: Senna/Docusate Sodium 8.6/50 MG Tablet PO SCH ×2 (09:57→20:32)
[2018-08-13 10:08] LABS: Calcium 8.4 mg/dL (8.5-10.1); Carbon Dioxide 27.7 meq/L (21.0-32.0); Magnesium 2.1 mg/dL (1.5-2.5); Potassium 3.9 meq/L (3.5-5.1)
[2018-08-13] MEDS: Nystatin/Diphenhydramine/Lidocaine Mouthwash (Adult) 120 ML Botttle SWISH-SWAL SCH ×4 (10:16→20:32)
--- NOTE | 2018-08-13 10:28 | P.PNONC ---
Subjective Interval history: Afebrile. Patient was downgraded out of the ICU yesterday. Patient appears to be sleeping, awakens twice briefly. RN at the bedside, no obvious signs of bleeding noted, reports patient had a brief episode of shortness of breath earlier this a.m., Chest x-ray was obtained. Objective Vital Signs/Intake & Output: Vital Signs 08/12/18 11:36 08/12/18 12:00 08/12/18 13:00 Temperature 98.2 F Pulse Rate 76 75 83 Respiratory Rate 18 17 19 Blood Pressure Pulse Oximetry 96 95 96 08/12/18 13:43 08/12/18 14:00 08/12/18 15:00 Temperature Pulse Rate 85 83 82 Respiratory Rate 30 H 29 H 30 H Blood Pressure 127/60 125/72 131/73 Pulse Oximetry 97 99 98 08/12/18 16:00 08/12/18 17:00 08/12/18 18:00 Temperature 97.8 F Pulse Rate 82 88 91 H Respiratory Rate 18 Blood Pressure 120/58 L 164/73 H Pulse Oximetry 95 99 98 08/12/18 18:01 08/12/18 20:00 08/13/18 00:00 Temperature 97.8 F 98 F Pulse Rate 88 84 85 Respiratory Rate 16 16 Blood Pressure 122/59 L 146/65 H 138/81 Pulse Oximetry 98 98 97 08/13/18 04:00 08/13/18 05:02 08/13/18 06:44 Temperature 98 F Pulse Rate 88 103 H Respiratory Rate 20 40 H Blood Pressure 165/88 H 151/69 H Pulse Oximetry 98 08/13/18 08:00 Temperature 98.4 F Pulse Rate 92 H Respiratory Rate 22 Blood Pressure 109/58 L Pulse Oximetry 97 Intake & Output 08/12/18 08/13/18 08/13/18 18:59 06:59 18:59 Intake Total 600 / 600 Output Total 1050 / 1050 900 / 900 Balance -450 / -450 -900 / -900 Weight 85.3 kg Intake: IV 100 / 100 SoluMEDROL Inj 250 MG In NS Inj 100 / 100 96 ML @ 200 mls/hr IV.SIG DAILY [facility] Rx#:[id number] Oral 500 / 500 Output: Urine 1050 / 1050 900 / 900 Other: Date of Last Bowel Movement 08/10/18 08/10/18 08/10/18 Result Diagrams: 08/13/18 09:11 08/13/18 09:11 Laboratory Results: Laboratory Results - last 24 hr 08/12/18 08/12/18 08/12/18 12:15 12:15 12:49 WBC 17.1 H RBC 3.05 L Hgb 8.7 L Hct 26.1 L MCV 85.6 MCH 28.6 MCHC 33.4 RDW 16.9 Plt Count 24 L MPV 11.5 H Prelim Diff (Auto) Slide review pending Neut % (Auto) 92.8 H Lymph % (Auto) 1.6 L [place] % (Auto) 5.5 Eos % (Auto) 0.0 Baso % (Auto) 0.1 Neut # (Auto) 15.8 H Lymph # (Auto) 0.3 L [place] # (Auto) 0.9 Eos # (Auto) 0.0 Baso # (Auto) 0.0 WBC Differential Manual diff final Seg Neuts % (Manual) 86 H Band Neuts % (Manual) 11 H Monocytes % (Manual) 2 Plasma Cell % (Manual) 1 H Abs Neuts (Manual) 16.6 H Differential Comment . Toxic Granulation 2+ H Platelet Estimate Low L Platelet Morphology Enlarged H Ovalocytes 1+ H Keratocytes Occ H Sodium 133 L Potassium 4.1 Chloride 100 Carbon Dioxide 24.5 Anion Gap 9 BUN 34 H Creatinine 0.94 Estimated GFR 77 L POC Glucose 202 H Random Glucose 178 H D Calcium 8.2 L Magnesium 2.0 08/12/18 08/12/18 08/13/18 17:43 19:46 05:47 WBC RBC Hgb Hct MCV MCH MCHC RDW Plt Count MPV Prelim Diff (Auto) Neut % (Auto) Lymph % (Auto) [place] % (Auto) Eos % (Auto) Baso % (Auto) Neut # (Auto) Lymph # (Auto) [place] # (Auto) Eos # (Auto) Baso # (Auto) WBC Differential Seg Neuts % (Manual) Band Neuts % (Manual) Monocytes % (Manual) Plasma Cell % (Manual) Abs Neuts (Manual) Differential Comment Toxic Granulation Platelet Estimate Platelet Morphology Ovalocytes Keratocytes Sodium Potassium Chloride Carbon Dioxide Anion Gap BUN Creatinine Estimated GFR POC Glucose 257 H 270 H 169 H Random Glucose Calcium Magnesium 08/13/18 08/13/18 08/13/18 08:56 09:11 09:11 WBC 19.2 H RBC 3.55 L Hgb 10.0 L Hct 30.7 L MCV 86.3 MCH 28.2 MCHC 32.6 RDW 17.2 Plt Count 22 L MPV 10.3 Prelim Diff (Auto) Slide review pending Neut % (Auto) 93.6 H Lymph % (Auto) 1.3 L [place] % (Auto) 5.0 Eos % (Auto) 0.0 Baso % (Auto) 0.1 Neut # (Auto) 18.0 H Lymph # (Auto) 0.2 L [place] # (Auto) 1.0 H Eos # (Auto) 0.0 Baso # (Auto) 0.0 WBC Differential Seg Neuts % (Manual) Band Neuts % (Manual) Monocytes % (Manual) Plasma Cell % (Manual) Abs Neuts (Manual) Differential Comment . Toxic Granulation Platelet Estimate Platelet Morphology Ovalocytes Keratocytes Sodium 136 Potassium 3.9 Chloride 98 Carbon Dioxide 27.7 Anion Gap 10 BUN 43 H Creatinine 1.18 Estimated GFR 59 L POC Glucose 159 H Random Glucose 149 H Calcium 8.4 L Magnesium 2.1 Imaging Studies: Impressions Cervical Spine CT 08/12/18 00:00 CONCLUSION: 1. Degenerative disc change at C5-C6 with broad-based disc osteophyte complex with mass effect on the anterior thecal sac. This comes in close contact with the anterior cord which is poorly visualized. 2. Mild anterior spondylolisthesis of C4 on C5 approximately 2 mm. There is mild retrolisthesis of C5 on C6. 3. Mild disc osteophyte complex at C3-4. 4. Narrowing of the left neural foramina at C2-3 and C3-4 levels as well as narrowing of the right neural foramina at C5-6. Chest X-Ray 08/13/18 05:29 CONCLUSION: Cardiomegaly and minimal left basilar density. Medications: Active Medications Generic Name Dose Route Start Last Admin Trade Name Freq PRN Reason Stop Dose Admin Acetaminophen 650 mg 08/02/18 04:18 08/10/18 03:05 Tylenol PO 650 mg Q6H PRN Administration PAIN 1-2 OR FEVER >101F Albuterol 2.5 mg 08/08/18 08:57 08/13/18 05:01 Albuterol Neb (Prn) NEB 2.5 mg Q2HR NEB PRN Administration DYSPNEA Carvedilol 3.125 mg 08/05/18 09:00 08/13/18 09:54 Coreg PO 3.125 mg BID MERON Administration Potassium Chloride 20 meq in 100 mls @ 50 mls/hr 08/05/18 08:03 08/05/18 17: 14 Kcl 20 Meq Premix Inj IV.SIG Infused Q2H PRN Infusion For Potassium 2.8 - 3.2 mEq/L Potassium Phosphate 30 mmol/ 260 mls @ 42 mls/hr 08/05/18 08:03 08/07/18 11: 42 Sodium Chloride IV.SIG Infused UNSCH PRN Infusion SEE LABEL COMMENTS Methylprednisolone Sodium 98 mls @ 200 mls/hr 08/12/18 15:07 08/13/18 09:53 Succinate 125 mg/ Sodium IV.SIG 200 mls/hr Chloride DAILY MERON Administration Insulin Aspart 0 unit 08/08/18 12:00 08/13/18 09:54 Novolog Insulin Correctional Sugar Inj SQ 1 unit ACHS MERON Administration Protocol Insulin Detemir 15 unit 08/12/18 11:00 08/13/18 09:53 Levemir Inj SQ 15 unit BID MERON Administration Lisinopril 2.5 mg 08/05/18 09:00 08/13/18 09:54 Prinivil PO 2.5 mg DAILY MERON Administration Metformin HCl 1,000 mg 08/12/18 09:00 08/13/18 09:56 Glucophage PO 1,000 mg BID MERON Administration Morphine Sulfate 2 mg 08/12/18 07:21 08/13/18 00:47 Morphine Inj IV.PUSH 2 mg Q3H PRN Administration BREAKTHROUGH PAIN Multi-Ingredient Mouthwash/Gargle 10 ml 08/08/18 18:00 08/13/18 10:16 Magic Mouthwash Adult Liq SWISH-SWAL Not Given QID [facility] Oxycodone HCl 10 mg 08/12/18 10:13 08/12/18 21:29 Roxicodone PO 10 mg Q4H PRN Administration PAIN SCALE 6 TO 10 Pantoprazole Sodium 40 mg 08/11/18 21:00 08/13/18 09:56 Protonix PO 40 mg BID MERON Administration Pioglitazone HCl 45 mg 08/12/18 09:00 08/13/18 09:54 Actos PO 45 mg DAILY MERON Administration Polyethylene Glycol 17 gm 08/08/18 11:45 08/13/18 09:57 Miralax PO 17 gm DAILY MERON Administration Potassium Bicarb/Potassium Chloride 50 meq 08/05/18 08:43 08/07/18 22:30 K-Lyte Cl Eff PO 50 meq UNSCH PRN Administration For Potassium 3.3 - 3.5 mEq/L Potassium Phosphate 2,000 mg 08/05/18 08:03 08/06/18 15:48 K-Phos Original PO 2,000 mg Q4H PRN Administration Phosphorus Less Than 2.5 mg/dL Romiplostim 89 mcg 08/09/18 10:00 08/09/18 09:40 Nplate Inj SQ 89 mcg Q7D MERON Administration Senna/Docusate Sodium 1 tab 08/02/18 09:00 08/13/18 09:57 Lisa-Colace PO 1 tab BID MERON Administration Sitagliptin Phosphate 100 mg 08/12/18 09:00 08/13/18 09:55 Januvia PO 100 mg DAILY MERON Administration Sodium Chloride 2 ml 08/02/18 09:00 08/13/18 10:16 Ns Flush IV.FLUSH Not Given BID MERON Sodium Chloride 2 ml 08/02/18 04:18 08/13/18 10:16 Ns Flush IV.FLUSH 2 ml PRN PRN Administration FLUSH AFTER USING IV ACCESS Tamsulosin HCl 0.4 mg 08/02/18 09:00 08/13/18 09:56 Flomax PO 0.4 mg DAILY MERON Administration Tramadol HCl 50 mg 08/12/18 07:21 08/12/18 17:51 Ultram PO 50 mg Q4H PRN Administration PAIN SCALE 3 TO 5 Objective Remarks: GENERAL: Ill-appearing elderly male patient, in no acute distress. +Lethargic. SKIN: Pale, warm and dry. Bruises to bilateral arms. HEAD: Normocephalic. EYES: No scleral icterus. No injection or drainage. NECK: Supple, trachea midline. CARDIOVASCULAR: Regular rate and rhythm without murmurs. RESPIRATORY: Breath sounds clear, equal bilaterally. Nonlabored at rest. GASTROINTESTINAL: Abdomen soft, distended, non-tender. EXTREMITIES: No cyanosis, or edema. MUSCULOSKELETAL: Decreased muscle tone. NEUROLOGICAL: Sleeping, awakens briefly. Assessment/Plan - Plan Mr. Butterfield is a pleasant 83-year-old male patient who is currently hospitalized for a GI bleed. Hematology was consulted for severe thrombocytopenia. 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 Plan: 1. Acute ITP. Status post immunoglobulin on 08/04 & 08/08 and Nplate on . Solu-Medrol was decreased to 125 mg daily. Blood glucose readings have improved. Platelet count 22,000 today. 2. GI bleed, management per gastroenterology. Discussed with RN, no obvious signs of bleeding. No bowel movements today. Hemoglobin has improved to 10. 3. Thrush, continue Magic mouthwash. 4. Elevated blood glucose, secondary to steroids, steroids decreased yesterday. Blood glucose seems to be improving. 5. Chest x-ray on 08/13/2018 showed cardiomegaly and minimal left basilar artery density. BNP is pending. White count has increased. Management per attending. 6. Repeat CBC in the a.m.
[2018-08-13 10:40] LABS: Monocytes 4 % (0-8); Platelet Morphology Normal (Normal); Toxic Granulation 1+
--- NOTE | 2018-08-13 15:26 | P.PNIM ---
Subjective Interval history: Patient says he is feeling all right. Denies any chest pain. Denies any bleeding. Asking when he can go home. Patient did have episode of chest pain early this morning. Chest x-ray read shows minimal left basilar density. Patient was given Lasix with resolution of shortness of breath. Physical Exam Vital signs: Vital Signs 08/12/18 16:00 08/12/18 17:00 08/12/18 18:00 Temperature 97.8 F Pulse Rate 82 88 91 H Respiratory Rate 18 Blood Pressure 120/58 L 164/73 H Pulse Oximetry 95 99 98 08/12/18 18:01 08/12/18 20:00 08/13/18 00:00 Temperature 97.8 F 98 F Pulse Rate 88 84 85 Respiratory Rate 16 16 Blood Pressure 122/59 L 146/65 H 138/81 Pulse Oximetry 98 98 97 08/13/18 04:00 08/13/18 05:02 08/13/18 06:44 Temperature 98 F Pulse Rate 88 103 H Respiratory Rate 20 40 H Blood Pressure 165/88 H 151/69 H Pulse Oximetry 98 08/13/18 08:00 08/13/18 12:00 08/13/18 12:39 Temperature 98.4 F 98.6 F Pulse Rate 96 H 96 H Respiratory Rate 20 20 Blood Pressure 109/58 L 124/65 Pulse Oximetry 97 96 97 Intake & Output 08/12/18 08/13/18 08/13/18 18:59 06:59 18:59 Intake Total 600 / 600 100 / 100 Output Total 1050 / 1050 900 / 900 Balance -450 / -450 -900 / -900 100 / 100 Weight 85.3 kg Intake: IV 100 / 100 100 / 100 SoluMEDROL Inj 125 MG In NS Inj 100 / 100 100 / 100 96 ML @ 200 mls/hr IV.SIG DAILY [facility] Rx#:[id number] Oral 500 / 500 Output: Urine 1050 / 1050 900 / 900 Other: Date of Last Bowel Movement 08/10/18 08/10/18 08/10/18 Narrative: GENERAL: 83-year-old male lying in bed. No acute distress. SKIN: Warm and dry. HEAD: Normocephalic. EYES: No scleral icterus. No injection or drainage. NECK: Supple, trachea midline. No JVD or lymphadenopathy. CARDIOVASCULAR: Regular rate and rhythm without murmurs, gallops, or rubs. RESPIRATORY: Breath sounds equal bilaterally, with crackles in bases bilaterally. No accessory muscle use. GASTROINTESTINAL: Abdomen soft, non-tender, nondistended. MUSCULOSKELETAL: No cyanosis, or edema. BACK: Nontender without obvious deformity. No CVA tenderness. Results - Labs CBC & Chem 7: 08/13/18 09:11 08/13/18 09:11 Laboratory Results - last 24 hr 08/12/18 08/12/18 08/13/18 17:43 19:46 05:47 WBC RBC Hgb Hct MCV MCH MCHC RDW Plt Count MPV Prelim Diff (Auto) Neut % (Auto) Lymph % (Auto) [place] % (Auto) Eos % (Auto) Baso % (Auto) Neut # (Auto) Lymph # (Auto) [place] # (Auto) Eos # (Auto) Baso # (Auto) WBC Differential Seg Neuts % (Manual) Band Neuts % (Manual) Monocytes % (Manual) Abs Neuts (Manual) Differential Comment Toxic Granulation Platelet Estimate Platelet Morphology Sodium Potassium Chloride Carbon Dioxide Anion Gap BUN Creatinine Estimated GFR POC Glucose 257 H 270 H 169 H Random Glucose Calcium Magnesium B-Natriuretic Peptide 08/13/18 08/13/18 08/13/18 08:56 09:11 09:11 WBC 19.2 H RBC 3.55 L Hgb 10.0 L Hct 30.7 L MCV 86.3 MCH 28.2 MCHC 32.6 RDW 17.2 Plt Count 22 L MPV 10.3 Prelim Diff (Auto) Slide review pending Neut % (Auto) 93.6 H Lymph % (Auto) 1.3 L [place] % (Auto) 5.0 Eos % (Auto) 0.0 Baso % (Auto) 0.1 Neut # (Auto) 18.0 H Lymph # (Auto) 0.2 L [place] # (Auto) 1.0 H Eos # (Auto) 0.0 Baso # (Auto) 0.0 WBC Differential Manual diff final Seg Neuts % (Manual) 88 H Band Neuts % (Manual) 8 H Monocytes % (Manual) 4 Abs Neuts (Manual) 18.4 H Differential Comment . Toxic Granulation 1+ H Platelet Estimate Low L Platelet Morphology Normal Sodium 136 Potassium 3.9 Chloride 98 Carbon Dioxide 27.7 Anion Gap 10 BUN 43 H Creatinine 1.18 Estimated GFR 59 L POC Glucose 159 H Random Glucose 149 H Calcium 8.4 L Magnesium 2.1 B-Natriuretic Peptide 08/13/18 08/13/18 09:11 13:25 WBC RBC Hgb Hct MCV MCH MCHC RDW Plt Count MPV Prelim Diff (Auto) Neut % (Auto) Lymph % (Auto) [place] % (Auto) Eos % (Auto) Baso % (Auto) Neut # (Auto) Lymph # (Auto) [place] # (Auto) Eos # (Auto) Baso # (Auto) WBC Differential Seg Neuts % (Manual) Band Neuts % (Manual) Monocytes % (Manual) Abs Neuts (Manual) Differential Comment Toxic Granulation Platelet Estimate Platelet Morphology Sodium Potassium Chloride Carbon Dioxide Anion Gap BUN Creatinine Estimated GFR POC Glucose 130 H Random Glucose Calcium Magnesium B-Natriuretic Peptide 1215 H - Imaging Impressions Chest X-Ray 08/13/18 05:29 CONCLUSION: Cardiomegaly and minimal left basilar density. Assessment and Plan - Plan Severe thrombocytopenia - ITP Acute normocytic anemia GI bleed Hyperglycemia secondary to steroid Hx DM, A1c 6.[address] abd. Hx Prostate ca s/p radiation tx. Acute systolic heart failure Atrial flutter Elevated AST Hypoalbuminemia Right shoulder pain with limited range of motion, left shoulder and nec pain and tenderness s/p fall with right rib fx. Encephalopathy Plan Neuro: head CT 08/10: negative acute bleed. Somnolence resolved. Monitor neuro status and avoid sedatives. Pulm: Continue with Oxygen keep sats >92% Albuterol/ipratropium aerosols every 6 hours with albuterol aerosols every 2 hours as needed dyspnea CV: Monitor HR and BP keep MAP>65mmHg Echo showed severe LV dysfunction with EF 30-35%. Repeat echocardiogram in 3 months Continue Lisinopril 2.5mg daily and carvedilol 3.125mg BID. Not a candidate for ASA or systemic anticoagulation due to severe thrombocytopenia. Will also need ischemic evaluation when patient more stable and hematologic abnormalities improved Cards ff-Dr. Nation = 08/13. Fluid overload, iatrogenic. Chest x-ray personally reviewed with pulmonary edema on chest x-ray, fluid overload with BNP in the 1200s. Will diurese and add fluid restrictions. Hold off on IV fluids. : Monitor renal function, I/O's, electrolytes replacement per protocol. Continue tamsulosin 0.4 mg daily GI: On PO cardiac diet. IV pantoprazole 40mg BID switched to p.o. GI is following. Per nursing, patient refused hydrocortisone supp BID. Possible endoscopy in future when stable and platelet count over 50,000 ID: Monitor for signs of infections ( fever, WBC) Panculture if spikes a fever Heme: Monitor CBC, coags, s/p transfusion 6u PRBC and 6 u PLT since admission: Hematology is following- received IVIG x 2 and Nplate on methylprednisolone succinate 250mg IV Q24, will clarify with hematology if steroid can be weaned as patient is hyperglycemic Haptoglobin was 117. LDH was elevated to 71. UA negative for hemolysis. = 08/13. Leukocytosis secondary to steroids. Hematology following. Appreciate assistance. Platelets 22,000. No signs of bleeding. Hemoglobin stable. Continue to monitor. Endo: Restart metformin, Januvia and Actos. Decrease Levemir to 15 units. SSC and hypoglycemia protocol = 08/13. Glucose acceptable in the 130s. Continue current regimen. Musc: Unremarkable right shoulder CT. Check neck CT. Continue PT , pain mgt counselled re narcs DVT GI prophylaxis -Teds SCDs -No pharmacological DVT prophylaxis due to severe thrombocytopenia and GI bleed -Pantoprazole twice daily stable to transfer out of ICU to step-down unit. Discussed Condition With: Patient, nurse Discharge Planning: PT recommends home with home health. Will need hematology clearance.
[2018-08-14 08:04] LABS: Baso # (Auto) 0.1 th/mm3 (0.0-0.2); Baso % (Auto) 0.5 % (0.0-2.0); Hematocrit 28.7 % (39.0-51.0); Hemoglobin 9.4 gm/dL (13.0-17.0); Lymph # (Auto) 0.4 th/mm3 (1.0-4.8); Mean Corpuscular HGB Conc 32.7 % (32.0-36.0); Mean Corpuscular Hemoglobin 28.2 pg (27.0-34.0); Mean Corpuscular Volume 86.2 fL (80.0-100.0); Mean Platelet Volume 12.1 fL (7.0-11.0); Mono # (Auto) 0.6 th/mm3 (0.0-0.9); Mono % (Auto) 3.2 % (0.0-8.0); Neut # (Auto) 18.1 th/mm3 (1.8-7.7); Neut % (Auto) 94.3 % (16.0-70.0); Platelet Count 22 th/mm3 (150-450); Red Blood Count 3.33 mil/mm3 (4.50-5.90); Red Cell Distribution Width 17.1 % (11.6-17.2); White Blood Count 19.2 th/mm3 (4.0-11.0)
[2018-08-14 08:24] LABS: Albumin 1.9 g/dL (3.4-5.0); Calcium 8.4 mg/dL (8.5-10.1); Carbon Dioxide 23.1 meq/L (21.0-32.0); Magnesium 2.3 mg/dL (1.5-2.5); Phosphorus 4.5 mg/dL (2.5-4.9); Potassium 3.6 meq/L (3.5-5.1)
[2018-08-14] MEDS: Insulin NovoLOG Aspart Correctional Sugar Inj SQ SCH ×4 (09:25→21:07)
[2018-08-14] MEDS: Polyethylene Glycol 3350 17 GM Packet PO SCH (09:55)
[2018-08-14] MEDS: Nystatin/Diphenhydramine/Lidocaine Mouthwash (Adult) 120 ML Botttle SWISH-SWAL SCH ×4 (09:55→21:09)
[2018-08-14] MEDS: Senna/Docusate Sodium 8.6/50 MG Tablet PO SCH ×2 (09:55→21:09)
[2018-08-14 10:08] LABS: Monocytes 2 % (0-8); Platelet Morphology Normal (Normal); Toxic Granulation 1+; Toxic Vacuolation Present
[2018-08-14] MEDS ORDERED: Vancomycin Consult Pharmacy OTHER PRN (10:32)
[2018-08-14] MEDS: SODIUM CHLOR 0.9% IV.SIG SCH ×2 (10:40→11:15)
[2018-08-14] MEDS: METHYLPREDNISOLONE SOD SUC IV.SIG SCH ×2 (10:40→11:15)
--- NOTE | 2018-08-14 10:46 | P.PNONC ---
Subjective Interval history: Patient sitting upright in chair, no acute distress. His is feeding him breakfast, he remains lethargic. 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 Patient is working with physical therapy. Placed in recliner chair for comfort. Discussed with his the plan from a hematology point of view. Objective Vital Signs/Intake & Output: Vital Signs 08/13/18 12:00 08/13/18 12:39 08/13/18 16:00 Temperature 98.6 F 97.8 F Pulse Rate 96 H 91 H Respiratory Rate 20 18 Blood Pressure 124/65 116/65 Pulse Oximetry 96 97 97 08/13/18 19:00 08/13/18 20:00 08/13/18 22:25 Temperature 98.2 F Pulse Rate 94 H 94 H Respiratory Rate 18 Blood Pressure 113/63 125/72 Pulse Oximetry 95 94 L 08/14/18 00:00 08/14/18 01:55 08/14/18 04:00 Temperature 97.9 F 98 F Pulse Rate 85 89 90 Respiratory Rate 18 18 18 Blood Pressure 102/44 L 129/77 109/65 Pulse Oximetry 97 95 97 08/14/18 07:40 08/14/18 09:15 Temperature 98.1 F Pulse Rate 94 H 85 Respiratory Rate 18 Blood Pressure 93/53 L Pulse Oximetry 95 Intake & Output 08/13/18 08/14/18 08/14/18 18:59 06:59 18:59 Intake Total 100 / 100 360 / 360 Output Total 850 / 850 Balance 100 / 100 -490 / -490 Weight 83.4 kg Intake: IV 100 / 100 SoluMEDROL Inj 125 MG In NS Inj 100 / 100 96 ML @ 200 mls/hr IV.SIG DAILY MERON Rx#:[id number] Oral 360 / 360 Output: Urine 850 / 850 Other: # Voids 3 Date of Last Bowel Movement 08/10/18 08/14/18 # Bowel Movements 2 # Incontinent Bowel Movements 2 Result Diagrams: 08/15/18 06:15 08/15/18 06:15 Laboratory Results: Laboratory Results - last 24 hr 08/13/18 08/13/18 08/13/18 09:11 09:11 13:25 WBC RBC Hgb Hct MCV MCH MCHC RDW Plt Count MPV Prelim Diff (Auto) Neut % (Auto) Lymph % (Auto) [place] % (Auto) Eos % (Auto) Baso % (Auto) Neut # (Auto) Lymph # (Auto) [place] # (Auto) Eos # (Auto) Baso # (Auto) WBC Differential Manual diff final Seg Neuts % (Manual) 88 H Band Neuts % (Manual) 8 H Monocytes % (Manual) 4 Abs Neuts (Manual) 18.4 H Differential Comment Toxic Granulation 1+ H Toxic Vacuolation Platelet Estimate Low L Platelet Morphology Normal Sodium Potassium Chloride Carbon Dioxide Anion Gap BUN Creatinine Estimated GFR POC Glucose 130 H Random Glucose Calcium Phosphorus Magnesium B-Natriuretic Peptide 1215 H Albumin 08/13/18 08/13/18 08/14/18 18:35 20:21 07:07 WBC RBC Hgb Hct MCV MCH MCHC RDW Plt Count MPV Prelim Diff (Auto) Neut % (Auto) Lymph % (Auto) [place] % (Auto) Eos % (Auto) Baso % (Auto) Neut # (Auto) Lymph # (Auto) [place] # (Auto) Eos # (Auto) Baso # (Auto) WBC Differential Seg Neuts % (Manual) Band Neuts % (Manual) Monocytes % (Manual) Abs Neuts (Manual) Differential Comment Toxic Granulation Toxic Vacuolation Platelet Estimate Platelet Morphology Sodium 137 Potassium 3.6 Chloride 98 Carbon Dioxide 23.1 Anion Gap 16 H BUN 58 H Creatinine 1.36 H Estimated GFR 50 L POC Glucose 108 107 Random Glucose 101 Calcium 8.4 L Phosphorus 4.5 Magnesium 2.3 B-Natriuretic Peptide Albumin 1.9 L 08/14/18 08/14/18 07:07 09:10 WBC 19.2 H RBC 3.33 L Hgb 9.4 L Hct 28.7 L MCV 86.2 MCH 28.2 MCHC 32.7 RDW 17.1 Plt Count 22 L MPV 12.1 H Prelim Diff (Auto) Slide review pending Neut % (Auto) 94.3 H Lymph % (Auto) 2.0 L [place] % (Auto) 3.2 Eos % (Auto) 0.0 Baso % (Auto) 0.5 Neut # (Auto) 18.1 H Lymph # (Auto) 0.4 L [place] # (Auto) 0.6 Eos # (Auto) 0.0 Baso # (Auto) 0.1 WBC Differential Manual diff final Seg Neuts % (Manual) 85 H Band Neuts % (Manual) 13 H Monocytes % (Manual) 2 Abs Neuts (Manual) 18.8 H Differential Comment . Toxic Granulation 1+ H Toxic Vacuolation Present H Platelet Estimate Low L Platelet Morphology Normal Sodium Potassium Chloride Carbon Dioxide Anion Gap BUN Creatinine Estimated GFR POC Glucose 122 H Random Glucose Calcium Phosphorus Magnesium B-Natriuretic Peptide Albumin Culture Results: Microbiology 08/13/18 09:17 Aerobic Blood Culture - Preliminary Blood - Peripheral gram positive cocci Anaerobic Blood Culture - Preliminary gram positive cocci 08/13/18 09:11 Aerobic Blood Culture - Preliminary Blood - Peripheral gram positive cocci Anaerobic Blood Culture - Preliminary gram positive cocci Medications: Active Medications Generic Name Dose Route Start Last Admin Trade Name Freq PRN Reason Stop Dose Admin Acetaminophen 650 mg 08/02/18 04:18 08/10/18 03:05 Tylenol PO 650 mg Q6H PRN Administration PAIN 1-2 OR FEVER >101F Albuterol 2.5 mg 08/08/18 08:57 08/13/18 05:01 Albuterol Neb (Prn) NEB 2.5 mg Q2HR NEB PRN Administration DYSPNEA Carvedilol 3.125 mg 08/05/18 09:00 08/14/18 09:26 Coreg PO Not Given BID MERON Potassium Chloride 20 meq in 100 mls @ 50 mls/hr 08/05/18 08:03 08/05/18 17: 14 Kcl 20 Meq Premix Inj IV.SIG Infused Q2H PRN Infusion For Potassium 2.8 - 3.2 mEq/L Potassium Phosphate 30 mmol/ 260 mls @ 42 mls/hr 08/05/18 08:03 08/07/18 11: 42 Sodium Chloride IV.SIG Infused UNSCH PRN Infusion SEE LABEL COMMENTS Methylprednisolone Sodium 98 mls @ 200 mls/hr 08/12/18 15:07 08/13/18 13:38 Succinate 125 mg/ Sodium IV.SIG Infused Chloride DAILY MREON Infusion Insulin Aspart 0 unit 08/08/18 12:00 08/14/18 09:25 Novolog Insulin Correctional Sugar Inj SQ Not Given ACHS MERON Protocol Lisinopril 2.5 mg 08/05/18 09:00 08/13/18 09:54 Prinivil PO 2.5 mg DAILY MERON Administration Metformin HCl 1,000 mg 08/12/18 09:00 08/13/18 20:31 Glucophage PO 1,000 mg BID MERON Administration Morphine Sulfate 2 mg 08/12/18 07:21 08/13/18 00:47 Morphine Inj IV.PUSH 2 mg Q3H PRN Administration BREAKTHROUGH PAIN Multi-Ingredient Mouthwash/Gargle 10 ml 08/08/18 18:00 08/13/18 20:32 Magic Mouthwash Adult Liq SWISH-SWAL 10 ml QID MERON Administration Oxycodone HCl 10 mg 08/12/18 10:13 08/12/18 21:29 Roxicodone PO 10 mg Q4H PRN Administration PAIN SCALE 6 TO 10 Pantoprazole Sodium 40 mg 08/11/18 21:00 08/13/18 20:31 Protonix PO 40 mg BID MERON Administration Pioglitazone HCl 45 mg 08/12/18 09:00 08/13/18 09:54 Actos PO 45 mg DAILY MERON Administration Polyethylene Glycol 17 gm 08/08/18 11:45 08/13/18 09:57 Miralax PO 17 gm DAILY MERON Administration Potassium Bicarb/Potassium Chloride 50 meq 08/05/18 08:43 08/07/18 22:30 K-Lyte Cl Eff PO 50 meq UNSCH PRN Administration For Potassium 3.3 - 3.5 mEq/L Potassium Phosphate 2,000 mg 08/05/18 08:03 08/06/18 15:48 K-Phos Original PO 2,000 mg Q4H PRN Administration Phosphorus Less Than 2.5 mg/dL Romiplostim 89 mcg 08/09/18 10:00 08/09/18 09:40 Nplate Inj SQ 89 mcg Q7D MERNO Administration Senna/Docusate Sodium 1 tab 08/02/18 09:00 08/13/18 20:32 Lisa-Colace PO 1 tab BID MERON Administration Sitagliptin Phosphate 100 mg 08/12/18 09:00 08/13/18 09:55 Januvia PO 100 mg DAILY MERON Administration Sodium Chloride 2 ml 08/02/18 09:00 08/13/18 20:32 Ns Flush IV.FLUSH 2 ml BID MERON Administration Sodium Chloride 2 ml 08/02/18 04:18 08/13/18 10:16 Ns Flush IV.FLUSH 2 ml PRN PRN Administration FLUSH AFTER USING IV ACCESS Tamsulosin HCl 0.4 mg 08/02/18 09:00 08/13/18 09:56 Flomax PO 0.4 mg DAILY MERON Administration Tramadol HCl 50 mg 08/12/18 07:21 08/12/18 17:51 Ultram PO 50 mg Q4H PRN Administration PAIN SCALE 3 TO 5 Objective Remarks: GENERAL: Chronically ill-appearing elderly male patient, in no acute distress. + Lethargic. SKIN: Pale, warm and dry. Bruises to bilateral arms. HEAD: Normocephalic. EYES: No scleral icterus. No injection or drainage. NECK: Supple, trachea midline. CARDIOVASCULAR: Regular rate and rhythm without murmurs. RESPIRATORY: Breath sounds clear, equal bilaterally. Nonlabored at rest. GASTROINTESTINAL: Abdomen soft, distended, non-tender. EXTREMITIES: No cyanosis, or edema. MUSCULOSKELETAL: Decreased muscle tone. NEUROLOGICAL: + Lethargic, answers questions. Assessment/Plan - Plan Mr. Butterfield is a pleasant 83-year-old male patient who is currently hospitalized for a GI bleed. Hematology was consulted for severe thrombocytopenia. 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 Plan: 1. Acute ITP. Status post immunoglobulin on 08/04 & 08/08 and Nplate on . Platelet count remains at 22,000 today. We will transition him to oral prednisone today. Patient scheduled for his next dose of Nplate on Tuesday. 2. GI bleed, management per gastroenterology. No obvious signs of bleeding, hemoglobin 9.4. 3. Lethargy, likely secondary to bacteremia. Patient with positive blood cultures, growing gram-positive cocci. Attending starting vancomycin today. 4. From a hematology standpoint, the patient may transition to rehab once he receives his 2nd dose of Nplate (08/16/18) and is transitioned to oral steroids. Patient with other medical needs, therefore he will likely require continued inpt care. 5. Discussed with Dr. Emery and NAVI Pereira. - Attending Statement Pt seen in room 236. Pt very confused and wants to go home and complaining that no one knows what is happening, etc. From a hematology point of view he is stable and improving. Next dose of NPlate due 08/16. Will switch to PO steroids now, administer NPLate 08/16 and then pt can be discharged from our point of view. D/w [employer].
[2018-08-14] MEDS: Lisinopril 5 MG Tablet PO SCH (10:55)
--- NOTE | 2018-08-14 11:08 | XR ---
EXAM DATE: 08/14/2018 12:00 AM EDT AGE/SEX: 83 years / Male INDICATIONS: CHF CLINICAL DATA: This is the patient's initial encounter. Patient reports that signs and symptoms have been present for 3 days and indicates a pain score of 0/10. MEDICAL/SURGICAL HISTORY: Carcinoma, prostatic. diabetes, thrombocytopenia, dementia None. COMPARISON: [facility] – [place], CHEST 1V SINGLE AP, 08/13/2018. . FINDINGS: Stable mild airspace opacities in the left lower lung zone. Cardiac silhouette is enlarged with indis tinct central pulmonary vascularity. Remainder of the exam is unchanged. CONCLUSION: 1. Cardiomegaly with mild positive fluid balance. 2. Stable left lower lung zone airspace disease, presumably atelectasis. Electronically signed by: Gabino Solorzano MD 08/14/2018 11:07 AM EDT
[2018-08-14] MEDS ORDERED: Vancomycin Inj 1,500 MG in Sodium Chlor 0.9% Inj 500 ML IV.SIG ONE (12:00)
--- NOTE | 2018-08-14 13:11 | ECHRPT ---
Indication: SEPSIS POSS ENDOCARDITIS CONCLUSIONS Severely dilated left ventricle. Wall thickness is normal. The left ventricular systolic function is severely reduced with an estimated ejection fraction in th e range of 30-35%.. There is dyssynchronous regional wall motion abnormalities likely related to intraventricular conduc tion delay Cannot exclude vegetation on posterior leaflet of mitral valve.trace mitral valve regurgitation. The estimated pulmonary arterial pressure is 34 mmHg. A small left sided pleural effusion is noted. BP: / HR: Rhythm: MEASUREMENTS (Male / Female) Normal Values Technical Quality:Very technically difficult study 2D ECHO LV Diastolic Diameter PLAX 6.4 cm 4.2 - 5.9 / 3.9 - 5.3 cm LV Systolic Diameter PLAX 5.7 cm IVS Diastolic Thickness 1.2 cm 0.6 - 1.0 / 0.6 - 0.9 cm LVPW Diastolic Thickness 1.2 cm 0.6 - 1.0 / 0.6 - 0.9 cm LV Relative Wall Thickness 0.4 RV Internal Dim ED PLAX 2.9 cm LVOT Diameter 2.1 cm Aortic Root Diameter 3.0 cm LV Ejection Fraction MOD 4C 42.6 % LV Ejection Fraction 4C AL 46.4 % M-MODE Aortic Root Diameter MM 3.5 cm LA Systolic Diameter MM 4.4 cm LA Ao Ratio MM 1.3 AV Cusp Separation MM 2.1 cm DOPPLER AV Peak Velocity 160.0 cm/s AV Peak Gradient 10.2 mmHg LVOT Peak Velocity 102.0 cm/s LVOT Peak Gradient 4.2 mmHg AV Area Cont Eq pk 2.2 cm Mitral E Point Velocity 94.8 cm/s Mitral A Point Velocity 48.9 cm/s Mitral E to A Ratio 1.9 LV E' Lateral Velocity 8.0 cm/s Mitral E to LV E' Lateral Ratio 11.9 LV E' Septal Velocity 5.5 cm/s Mitral E to LV E' Septal Ratio 17.4 TR Peak Velocity 244.0 cm/s TR Peak Gradient 23.8 mmHg Right Atrial Pressure 10.0 mmHg Pulmonary Artery Systolic Pressu 33.8 mmHg Right Ventricular Systolic Press 33.8 mmHg PV Peak Velocity 87.7 cm/s PV Peak Gradient 3.1 mmHg FINDINGS LEFT VENTRICLE Severely dilated left ventricle. Wall thickness is normal. The left ventricular systolic function is severely reduced with an estimated ejection fraction in th e range of 30-35%. RIGHT VENTRICLE Normal right ventricular size and systolic function. LEFT ATRIUM The left atrial size is normal. RIGHT ATRIUM The right atrial size is normal. ATRIAL SEPTUM Normal atrial septal thickness without atrial level shunting by limited color doppler interrogation. AORTA The aortic root and proximal ascending aorta are normal in size on limited imaging. MITRAL VALVE Cannot exclude vegetation on posterior leaflet of mitral valve.trace mitral valve regurgitation. AORTIC VALVE Trileaflet aortic valve. No aortic valve stenosis or regurgitation. TRICUSPID VALVE The estimated pulmonary arterial pressure is 34 mmHg. PULMONARY VALVE No pulmonary valve regurgitation or stenosis. VESSELS The inferior vena cava is normal in size. PERICARDIUM A small left sided pleural effusion is noted. Javid Cobb MD, FACC (Electronically Signed) Final Date:14 August 2018 13:10
--- NOTE | 2018-08-14 13:16 | P.PNIM ---
Subjective Interval history: Patient says he is feeling right today. Denies any chest pain or shortness of breath. at bedside. says he appears more alert than in days past. Physical Exam Vital signs: Vital Signs 08/13/18 16:00 08/13/18 19:00 08/13/18 20:00 Temperature 97.8 F 98.2 F Pulse Rate 91 H 94 H Respiratory Rate 18 18 Blood Pressure 116/65 113/63 Pulse Oximetry 97 95 94 L 08/13/18 22:25 08/14/18 00:00 08/14/18 01:55 Temperature 97.9 F Pulse Rate 94 H 85 89 Respiratory Rate 18 18 Blood Pressure 125/72 102/44 L 129/77 Pulse Oximetry 97 95 08/14/18 04:00 08/14/18 07:40 08/14/18 09:15 Temperature 98 F 98.1 F Pulse Rate 90 94 H 85 Respiratory Rate 18 18 Blood Pressure 109/65 93/53 L Pulse Oximetry 97 95 08/14/18 12:11 Temperature 96.7 F L Pulse Rate 99 H Respiratory Rate 20 Blood Pressure 96/49 L Pulse Oximetry 97 Intake & Output 08/13/18 08/14/18 08/14/18 18:59 06:59 18:59 Intake Total 100 / 100 360 / 360 Output Total 850 / 850 Balance 100 / 100 -490 / -490 Weight 83.4 kg Intake: IV 100 / 100 SoluMEDROL Inj 125 MG In NS Inj 100 / 100 96 ML @ 200 mls/hr IV.SIG DAILY MERON Rx#:[id number] Oral 360 / 360 Output: Urine 850 / 850 Other: # Voids 3 Date of Last Bowel Movement 08/10/18 08/14/18 # Bowel Movements 2 # Incontinent Bowel Movements 2 Narrative: GENERAL: 83-year-old male lying in recliner. No acute distress. SKIN: Warm and dry. HEAD: Normocephalic. EYES: No scleral icterus. No injection or drainage. NECK: Supple, trachea midline. No JVD. CARDIOVASCULAR: Regular rate and rhythm without murmurs, gallops, or rubs. RESPIRATORY: Breath sounds equal bilaterally, with crackles in bases bilaterally. No accessory muscle use. GASTROINTESTINAL: Abdomen soft, non-tender, nondistended. MUSCULOSKELETAL: No cyanosis, or edema. BACK: Nontender without obvious deformity. No CVA tenderness. Results - Labs CBC & Chem 7: 08/14/18 07:07 08/14/18 07:07 Laboratory Results - last 24 hr 08/13/18 08/13/18 08/13/18 13:25 18:35 20:21 WBC RBC Hgb Hct MCV MCH MCHC RDW Plt Count MPV Prelim Diff (Auto) Neut % (Auto) Lymph % (Auto) [place] % (Auto) Eos % (Auto) Baso % (Auto) Neut # (Auto) Lymph # (Auto) [place] # (Auto) Eos # (Auto) Baso # (Auto) WBC Differential Seg Neuts % (Manual) Band Neuts % (Manual) Monocytes % (Manual) Abs Neuts (Manual) Differential Comment Toxic Granulation Toxic Vacuolation Platelet Estimate Platelet Morphology Sodium Potassium Chloride Carbon Dioxide Anion Gap BUN Creatinine Estimated GFR POC Glucose 130 H 108 107 Random Glucose Calcium Phosphorus Magnesium Albumin 08/14/18 08/14/18 08/14/18 07:07 07:07 09:10 WBC 19.2 H RBC 3.33 L Hgb 9.4 L Hct 28.7 L MCV 86.2 MCH 28.2 MCHC 32.7 RDW 17.1 Plt Count 22 L MPV 12.1 H Prelim Diff (Auto) Slide review pending Neut % (Auto) 94.3 H Lymph % (Auto) 2.0 L [place] % (Auto) 3.2 Eos % (Auto) 0.0 Baso % (Auto) 0.5 Neut # (Auto) 18.1 H Lymph # (Auto) 0.4 L [place] # (Auto) 0.6 Eos # (Auto) 0.0 Baso # (Auto) 0.1 WBC Differential Manual diff final Seg Neuts % (Manual) 85 H Band Neuts % (Manual) 13 H Monocytes % (Manual) 2 Abs Neuts (Manual) 18.8 H Differential Comment . Toxic Granulation 1+ H Toxic Vacuolation Present H Platelet Estimate Low L Platelet Morphology Normal Sodium 137 Potassium 3.6 Chloride 98 Carbon Dioxide 23.1 Anion Gap 16 H BUN 58 H Creatinine 1.36 H Estimated GFR 50 L POC Glucose 122 H Random Glucose 101 Calcium 8.4 L Phosphorus 4.5 Magnesium 2.3 Albumin 1.9 L 08/14/18 12:13 WBC RBC Hgb Hct MCV MCH MCHC RDW Plt Count MPV Prelim Diff (Auto) Neut % (Auto) Lymph % (Auto) [place] % (Auto) Eos % (Auto) Baso % (Auto) Neut # (Auto) Lymph # (Auto) [place] # (Auto) Eos # (Auto) Baso # (Auto) WBC Differential Seg Neuts % (Manual) Band Neuts % (Manual) Monocytes % (Manual) Abs Neuts (Manual) Differential Comment Toxic Granulation Toxic Vacuolation Platelet Estimate Platelet Morphology Sodium Potassium Chloride Carbon Dioxide Anion Gap BUN Creatinine Estimated GFR POC Glucose 115 H Random Glucose Calcium Phosphorus Magnesium Albumin Microbiology 08/13/18 09:11 Blood - Peripheral Aerobic Blood Culture - Preliminary Staphylococcus aureus 08/13/18 09:11 Blood - Peripheral Anaerobic Blood Culture - Preliminary gram positive cocci 08/13/18 09:17 Blood - Peripheral Aerobic Blood Culture - Preliminary gram positive cocci 08/13/18 09:17 Blood - Peripheral Anaerobic Blood Culture - Preliminary gram positive cocci - Imaging Impressions Chest X-Ray 08/14/18 00:00 CONCLUSION: 1. Cardiomegaly with mild positive fluid balance. 2. Stable left lower lung zone airspace disease, presumably atelectasis. Assessment and Plan - Plan Severe thrombocytopenia - ITP Acute normocytic anemia GI bleed Hyperglycemia secondary to steroid Hx DM, A1c 6.[address] abd. Hx Prostate ca s/p radiation tx. Acute systolic heart failure Atrial flutter Elevated AST Hypoalbuminemia Right shoulder pain with limited range of motion, left shoulder and nec pain and tenderness s/p fall with right rib fx. Encephalopathy Plan Neuro: head CT 08/10: negative acute bleed. Somnolence resolved. Monitor neuro status and avoid sedatives. Pulm: Continue with Oxygen keep sats >92% Albuterol/ipratropium aerosols every 6 hours with albuterol aerosols every 2 hours as needed dyspnea CV: Monitor HR and BP keep MAP>65mmHg Echo showed severe LV dysfunction with EF 30-35%. Repeat echocardiogram in 3 months Continue Lisinopril 2.5mg daily and carvedilol 3.125mg BID. Not a candidate for ASA or systemic anticoagulation due to severe thrombocytopenia. Will also need ischemic evaluation when patient more stable and hematologic abnormalities improved Cards ff-Dr. Nation = 08/13. Fluid overload, iatrogenic. Chest x-ray personally reviewed with pulmonary edema on chest x-ray, fluid overload with BNP in the 1200s. Will diurese and add fluid restrictions. Hold off on IV fluids. = 08/14. Continue with fluid restrictions. Creatinine 1.36 secondary to sepsis , bacteremia. : Monitor renal function, I/O's, electrolytes replacement per protocol. Continue tamsulosin 0.4 mg daily GI: On PO cardiac diet. IV pantoprazole 40mg BID switched to p.o. GI is following. Per nursing, patient refused hydrocortisone supp BID. Possible endoscopy in future when stable and platelet count over 50,000 //Sepsis //Gram-positive bacteremia Monitor CBC, coags, s/p transfusion 6u PRBC and 6 u PLT since admission: Hematology is following- received IVIG x 2 and Nplate on methylprednisolone succinate 250mg IV Q24, will clarify with hematology if steroid can be weaned as patient is hyperglycemic Haptoglobin was 117. LDH was elevated to 71. UA negative for hemolysis. = 08/13. Leukocytosis secondary to steroids. Hematology following. Appreciate assistance. Platelets 22,000. No signs of bleeding. Hemoglobin stable. Continue to monitor. = 08/14. Suspected sepsis. Gram-positive bacteremia. Consult infectious disease. Echocardiogram started on vancomycin. Continue to monitor. Endo: Restart metformin, Januvia and Actos. Decrease Levemir to 15 units. SSC and hypoglycemia protocol = 08/13. Glucose acceptable in the 130s. Continue current regimen. Musc: Unremarkable right shoulder CT. Check neck CT. Continue PT , pain mgt counselled re narcs DVT GI prophylaxis -Teds SCDs -No pharmacological DVT prophylaxis due to severe thrombocytopenia and GI bleed -Pantoprazole twice daily stable to transfer out of ICU to step-down unit. Discharge Planning: Continued inpatient treatment PT recommends home with home health. Will need hematology clearance.
--- NOTE | 2018-08-14 13:56 | MB ---
cc: Gunnar Manzanares MD DATE: 08/14/2018 REQUESTING PHYSICIAN: Dr. Miller. REASON FOR CONSULTATION: 1. Gram-positive cocci bloodstream 2. Bacteremia /. HISTORY OF PRESENT ILLNESS: This is an 83-year-old white male who was admitted to the hospital on 08/02/2018 with GI bleed. He was noted to have profound thrombocytopenia. 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 His white blood cell count increased from 6.9-14.7 on 08/09/2018 and has steadily been climbing and today it is 19.2. The patient has been lethargic. He was transferred from Intensive Care Unit 1 day ago. His platelet count had increased to 50,000 on 08/09/2018 and it is decreasing and today it is 22,000. The patient is responsive, but feels tired. He appears lethargic. He complains of headache and pain in the elbow joints. He had no fever. Blood cultures were taken on 08/13/2018 and all 4 bottles have gram-positive cocci. The patient has had peripheral IV catheters. A 2D echocardiogram is being performed. A previous 2D echocardiogram on 08/03/2018 revealed mild mitral valve regurgitation and also trace tricuspid valve regurgitation. There was no aortic valve stenosis or regurgitation. The patient is noted to have low blood pressure this morning with systolic blood pressure of 93. The patient has no other complaints. PAST MEDICAL HISTORY: Diabetes mellitus, psoriasis, left tibia/fibula fracture, prostate cancer. ALLERGIES: NO KNOWN DRUG ALLERGIES. MEDICATIONS: 1. Vancomycin. 2. Coreg, which is on hold. 3. Albuterol. 4. Prinivil, which is on hold. 5. Metformin. 6. Morphine sulfate p.r.n. 7. Protonix. 8. Actos. 9. MiraLax. SOCIAL HISTORY: . No tobacco, no alcohol, no illicit drug use. FAMILY HISTORY: Noncontributory. REVIEW OF SYSTEMS: All systems have been reviewed and pertinents were mentioned in history of present illness. PHYSICAL EXAMINATION: GENERAL: This is a moderately obese male who is in no acute distress; is lethargic. VITAL SIGNS: Includes temperature of 98.1, BP 93/53, respirations 18, heart rate 85. HEENT: Extraocular movements grossly intact. Pupils reactive to light. No icterus. Oropharynx moist mucosa without visible lesions. Mild thrush. NECK: Supple without adenopathy or swelling. LUNGS: Decreased breath sounds, slight basilar rhonchi. HEART: Regular S1, S2. No murmurs heard. ABDOMEN: Bowel sounds present. Soft, no tenderness appreciated. RECTAL: Not performed. EXTREMITIES: No clubbing, cyanosis or edema. Ecchymotic lesions at the upper extremities. SKIN: No diffuse rash. NEUROLOGIC: No gross focal finding. PSYCHIATRIC: The patient is calm and cooperative. LABORATORY DATA: WBC 19.2, platelets 22,000, hemoglobin 9.4, 94% neutrophils, creatinine 1.36, BUN 58, sodium 137. Estimated GFR 50. IMPRESSION: 1. Bacteremia due to gram-positive cocci; 4/4 bottles positive, questionable etiology. The clear source is not evident to me at this time. 2. Idiopathic thrombocytopenic purpura status post treatment. 3. Leukocytosis. 4. History of prostate cancer. RECOMMENDATIONS: 1. Continue vancomycin as ordered to be administered by pharmacy. 2. Monitor blood cultures for identity and sensitivity of the bacteria recovered on cultures of 08/13/2018. 3. Monitor vital signs including blood pressure. 4. Monitor for evidence of his source of infection. 5. Follow the 2D echocardiogram, which is currently being performed to evaluate for possible endocarditis. Thank you for this consultation. I will follow the patient's progress and make further recommendations upon followup if necessary. MD DICK Nash/ave , 12:17 PM , 12:34 PM [email or web address]
[2018-08-14] MEDS ORDERED: Sod Chloride 0.9% Inj 1,000 ML IV.SIG SCH ×2 (15:18→23:00)
[2018-08-14] MEDS: Insulin Detemir Inj 1,000 UNIT/10 ML Vial SQ SCH (19:59)
[2018-08-14 22:47] LABS: Bacteria,Urine Occasional /hpf; Bilirubin,Urine Negative (Negative); Clarity,Urine Hazy (Clear); Color,Urine Yellow (Yellw/Straw); Glucose,Urine (UA) 50 mg/dL (Negative); Leukocyte Esterase,Urine Large (Negative); Mucus,Urine Few /lpf (Occasional); Nitrite,Urine Negative (Negative); Specific Gravity,Urine 1.012 (1.002-1.035); Squamous Epithelial Cell,Urine <1 /hpf (0-5)
[2018-08-15 06:27] LABS: Hematocrit 29.2 % (39.0-51.0); Hemoglobin 9.4 gm/dL (13.0-17.0); Mean Corpuscular HGB Conc 32.3 % (32.0-36.0); Mean Corpuscular Hemoglobin 28.1 pg (27.0-34.0); Mean Corpuscular Volume 87.2 fL (80.0-100.0); Mean Platelet Volume 11.5 fL (7.0-11.0); Platelet Count 27 th/mm3 (150-450); Red Blood Count 3.35 mil/mm3 (4.50-5.90); Red Cell Distribution Width 17.4 % (11.6-17.2)
[2018-08-15 07:03] LABS: Albumin 1.8 g/dL (3.4-5.0); Calcium 7.8 mg/dL (8.5-10.1); Carbon Dioxide 23.5 meq/L (21.0-32.0); Magnesium 2.5 mg/dL (1.5-2.5); Phosphorus 4.2 mg/dL (2.5-4.9); Potassium 3.7 meq/L (3.5-5.1)
[2018-08-15 07:07] LABS: Vancomycin,Random 10.8 Comment
[2018-08-15 07:28] LABS: Monocytes 2 % (0-8); Toxic Granulation 2+
[2018-08-15 07:29] LABS: Toxic Vacuolation Present
[2018-08-15] MEDS: Polyethylene Glycol 3350 17 GM Packet PO SCH (09:05)
[2018-08-15] MEDS: Senna/Docusate Sodium 8.6/50 MG Tablet PO SCH ×2 (09:16→19:59)
[2018-08-15] MEDS: Insulin NovoLOG Aspart Correctional Sugar Inj SQ SCH ×4 (09:18→20:02)
[2018-08-15] MEDS: Nystatin/Diphenhydramine/Lidocaine Mouthwash (Adult) 120 ML Botttle SWISH-SWAL SCH ×4 (09:18→20:02)
[2018-08-15 09:57] LABS: % Iron Saturation 6.5 % (20-50)
[2018-08-15] MEDS ORDERED: Thiamine Inj 500 MG in Sodium Chlor 0.9% Inj 250 ML IV.SIG ONE (11:00)
[2018-08-15] MEDS ORDERED: Vancomycin Inj 1,250 MG in Sodium Chlor 0.9% Inj 250 ML IV.SIG SCH (11:00)
--- NOTE | 2018-08-15 11:13 | XR ---
EXAM DATE: 08/15/2018 12:00 AM EDT AGE/SEX: 83 years / Male INDICATIONS: Congestive heart failure. CLINICAL DATA: This is the patient's subsequent encounter. Patient reports that signs and symptoms h ave been present for 1 week and indicates a pain score of 8/10. MEDICAL/SURGICAL HISTORY: Diabetes mellitus type II. Carcinoma, prostatic. Psoriasis. . Bilat eral cataracts. COMPARISON: [facility] [place] 1V SINGLE AP, 08/14/2018. . FINDINGS: The lungs are clear without infiltrate, nodule, or mass. There is no appreciable pleural effusion fo r technique. Heart and mediastinum are unremarkable. CONCLUSION: No acute cardiopulmonary disease. Electronically signed by: Danis Briceño MD 08/15/2018 11:11 AM EDT
--- NOTE | 2018-08-15 11:15 | P.PNID ---
Subjective Remarks: Patient is extremely lethargic. at bedside. Awakens. Denies headache. afebrile. WBC remain elevated. This is an 83-year-old white male who was admitted to the hospital on 08/02/2018 with GI bleed. He was noted to have profound thrombocytopenia. 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 His white blood cell count increased from 6.9-14.7 on 08/09/2018 and has steadily been climbing and today it is 19.2. The patient has been lethargic. He was transferred from Intensive Care Unit 1 day ago. His platelet count had increased to 50,000 on 08/09/2018 and it is decreasing and today it is 22,000. The patient is responsive, but feels tired. He appears lethargic. He complains of headache and pain in the elbow joints. He had no fever. Blood cultures were taken on 08/13/2018 and all 4 bottles have gram-positive cocci. The patient has had peripheral IV catheters. ID consulted for positive blood cultures. Antibiotics: Vancomycin Past Medical History: PAST MEDICAL HISTORY: Diabetes mellitus, psoriasis, left tibia/fibula fracture, prostate cancer. Allergies/Adverse Reactions: Allergies No Known Allergies Allergy (Verified 08/02/18 03:15) Objective Vital Signs 08/14/18 12:11 08/14/18 15:55 08/14/18 16:00 Temperature 96.7 F L 98.1 F Pulse Rate 99 H 96 H 95 H Respiratory Rate 20 18 18 Blood Pressure 96/49 L 96/48 L Pulse Oximetry 97 97 08/14/18 18:01 08/14/18 19:45 08/14/18 20:38 Temperature 98.1 F Pulse Rate 98 H 96 H 92 H Respiratory Rate 18 21 Blood Pressure 123/50 L 99/55 L Pulse Oximetry 96 08/15/18 00:00 08/15/18 00:20 08/15/18 00:29 Temperature 98.2 F Pulse Rate 88 84 Respiratory Rate 18 20 Blood Pressure 103/57 L Pulse Oximetry 95 08/15/18 04:00 08/15/18 04:05 08/15/18 04:35 Temperature 99.1 F Pulse Rate 104 H 103 H Respiratory Rate 18 21 Blood Pressure 117/60 Pulse Oximetry 93 L Intake & Output 08/14/18 08/15/18 08/15/18 18:59 06:59 18:59 Intake Total 1150 / 1150 1999 Output Total 750 / 750 700 / 700 Balance 400 / 400 1300 / 1300 Weight 83.8 kg Intake: IV 515 / 515 1999 NS Inj 1,000 ML @ Wide Open IV. 1999 SIG BOLUS MERON Rx#:[id number] Vancomycin Inj 1,500 MG In NS 515 / 515 Inj 500 ML @ 250 mls/hr IV.SIG ONCE ONE Rx#:[id number] Oral 635 / 635 Output: Urine 750 / 750 700 / 700 Other: # Voids 1 # Incontinent Voids 3 Date of Last Bowel Movement 08/14/18 # Bowel Movements 1 08/13/18 09:17 Blood - Peripheral Aerobic Blood Culture - Final Staphylococcus aureus 08/13/18 09:17 Blood - Peripheral Anaerobic Blood Culture - Final Staphylococcus aureus 08/13/18 09:11 Blood - Peripheral Aerobic Blood Culture - Preliminary Staphylococcus aureus 08/13/18 09:11 Blood - Peripheral Anaerobic Blood Culture - Final Staphylococcus aureus 08/14/18 21:47 Clean Catch Urine Urine Culture - Pending Lab - Hematology Results 08/14/18 08/15/18 07:07 06:15 WBC 19.2 H 18.0 H RBC 3.33 L 3.35 L Hgb 9.4 L 9.4 L Hct 28.7 L 29.2 L MCV 86.2 87.2 MCH 28.2 28.1 MCHC 32.7 32.3 RDW 17.1 17.4 H Plt Count 22 L 27 L MPV 12.1 H 11.5 H Prelim Diff (Auto) Slide review pending Manual diff required Neut % (Auto) 94.3 H Lymph % (Auto) 2.0 L Scurry % (Auto) 3.2 Eos % (Auto) 0.0 Baso % (Auto) 0.5 Neut # (Auto) 18.1 H Lymph # (Auto) 0.4 L [place] # (Auto) 0.6 Eos # (Auto) 0.0 Baso # (Auto) 0.1 WBC Differential Manual diff final Manual diff final Seg Neuts % (Manual) 85 H 95 H Band Neuts % (Manual) 13 H 3 Monocytes % (Manual) 2 2 Abs Neuts (Manual) 18.8 H 17.6 H Differential Comment . . Toxic Granulation 1+ H 2+ H Toxic Vacuolation Present H Present H Platelet Estimate Low L Low L Platelet Morphology Normal Enlarged H Lab - Chemistry Results 08/13/18 08/13/18 08/13/18 13:25 18:35 20:21 Sodium Potassium Chloride Carbon Dioxide Anion Gap BUN Creatinine Estimated GFR POC Glucose 130 H 108 107 Random Glucose Lactic Acid Calcium Phosphorus Magnesium Iron TIBC % Saturation Ferritin B-Natriuretic Peptide Albumin 08/14/18 08/14/18 08/14/18 07:07 09:10 12:13 Sodium 137 Potassium 3.6 Chloride 98 Carbon Dioxide 23.1 Anion Gap 16 H BUN 58 H Creatinine 1.36 H Estimated GFR 50 L POC Glucose 122 H 115 H Random Glucose 101 Lactic Acid Calcium 8.4 L Phosphorus 4.5 Magnesium 2.3 Iron TIBC % Saturation Ferritin B-Natriuretic Peptide Albumin 1.9 L 08/14/18 08/14/18 08/14/18 14:03 14:03 16:10 Sodium Potassium Chloride Carbon Dioxide Anion Gap BUN Creatinine Estimated GFR POC Glucose 150 H Random Glucose Lactic Acid 7.0 H* Calcium Phosphorus Magnesium Iron TIBC % Saturation Ferritin B-Natriuretic Peptide 376 H Albumin 08/14/18 08/14/18 08/15/18 20:02 21:03 06:15 Sodium 141 Potassium 3.7 Chloride 105 Carbon Dioxide 23.5 Anion Gap 13 BUN 79 H Creatinine 1.43 H Estimated GFR 47 L POC Glucose 212 H Random Glucose 225 H D Lactic Acid 6.4 H* Calcium 7.8 L Phosphorus 4.2 Magnesium 2.5 Iron TIBC % Saturation Ferritin B-Natriuretic Peptide Albumin 1.8 L 08/15/18 08/15/18 08/15/18 06:15 06:15 06:15 Sodium Potassium Chloride Carbon Dioxide Anion Gap BUN Creatinine Estimated GFR POC Glucose Random Glucose Lactic Acid 5.3 H* Calcium Phosphorus Magnesium Iron 15 L TIBC 232 L % Saturation 6.5 L Ferritin 131 B-Natriuretic Peptide 303 H Albumin 08/15/18 08:55 Sodium Potassium Chloride Carbon Dioxide Anion Gap BUN Creatinine Estimated GFR POC Glucose 240 H Random Glucose Lactic Acid Calcium Phosphorus Magnesium Iron TIBC % Saturation Ferritin B-Natriuretic Peptide Albumin Imaging: ITS Impressions Abdomen/Pelvis CT 08/02/18 04:01 CONCLUSION: 1. 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 2. Nonacute findings include severe atherosclerotic disease, cholelithiasis, stable complex cystic lesion of the left kidney measuring 6.5 cm, and cirrhotic liver. Head CT 08/10/18 00:00 CONCLUSION: 1. Negative CT Head non contrast. . Humerus CT 08/11/18 00:00 CONCLUSION: 1. Nonacute appearing right-sided rib fractures. 2. No evidence for humerus fracture. 3. Note is made of ascites in the upper abdomen. Cervical Spine CT 08/12/18 00:00 CONCLUSION: 1. Degenerative disc change at C5-C6 with broad-based disc osteophyte complex with mass effect on the anterior thecal sac. This comes in close contact with the anterior cord which is poorly visualized. 2. Mild anterior spondylolisthesis of C4 on C5 approximately 2 mm. There is mild retrolisthesis of C5 on C6. 3. Mild disc osteophyte complex at C3-4. 4. Narrowing of the left neural foramina at C2-3 and C3-4 levels as well as narrowing of the right neural foramina at C5-6. Chest X-Ray 08/14/18 00:00 CONCLUSION: 1. Cardiomegaly with mild positive fluid balance. 2. Stable left lower lung zone airspace disease, presumably atelectasis. Physical Exam: PHYSICAL EXAMINATION: GENERAL: Lethargic. Awakens. HEENT: Extraocular movements grossly intact. Pupils reactive to light. No icterus. Oropharynx moist mucosa without visible lesions. Mild thrush. NECK: Obese, Supple without adenopathy. LUNGS: Coarse bilateral rhonchi. HEART: Regular S1, S2. No murmurs heard. ABDOMEN: Bowel sounds present. Soft, no tenderness appreciated. EXTREMITIES: No clubbing, cyanosis or edema. Ecchymotic lesions at the upper extremities. SKIN: No diffuse rash. NEUROLOGIC: No gross focal finding. PSYCHIATRIC: Lethargic, unable to fully assess. Assessment and Plan - Plan IMPRESSION: 1. Bacteremia due to gram-positive cocci; 4/4 bottles positive, questionable etiology. All 4 bottles identified as staph aureus. The clear source is not evident to me at this time. 2D echocardiogram suggest possible vegetation on mitral valve. 2. Idiopathic thrombocytopenic purpura status post treatment. 3. Leukocytosis. 4. History of prostate cancer. RECOMMENDATIONS: 1. Continue vancomycin. 2. Monitor blood cultures for identity and sensitivity of the bacteria recovered on cultures of 08/13/2018. 3. Repeat the blood cultures. 4. Monitor for evidence of his source of infection. 5. Cardiology evaluation for YANETH to further evaluate for endocarditis. Discussed with patient's .
--- NOTE | 2018-08-15 11:37 | P.PNONC ---
Subjective Interval history: Afebrile. Awake but lethargic. Patient reports he aches all over. Asks when he is going to get better. His remains at the bedside. Objective Vital Signs/Intake & Output: Vital Signs 08/14/18 12:11 08/14/18 15:55 08/14/18 16:00 Temperature 96.7 F L 98.1 F Pulse Rate 99 H 96 H 95 H Respiratory Rate 20 18 18 Blood Pressure 96/49 L 96/48 L Pulse Oximetry 97 97 08/14/18 18:01 08/14/18 19:45 08/14/18 20:38 Temperature 98.1 F Pulse Rate 98 H 96 H 92 H Respiratory Rate 18 21 Blood Pressure 123/50 L 99/55 L Pulse Oximetry 96 08/15/18 00:00 08/15/18 00:20 08/15/18 00:29 Temperature 98.2 F Pulse Rate 88 84 Respiratory Rate 18 20 Blood Pressure 103/57 L Pulse Oximetry 95 08/15/18 04:00 08/15/18 04:05 08/15/18 04:35 Temperature 99.1 F Pulse Rate 104 H 103 H Respiratory Rate 18 21 Blood Pressure 117/60 Pulse Oximetry 93 L 08/15/18 11:17 Temperature 98.3 F Pulse Rate 97 H Respiratory Rate 20 Blood Pressure 98/49 L Pulse Oximetry 97 Intake & Output 08/14/18 08/15/18 08/15/18 18:59 06:59 18:59 Intake Total 1150 / 1150 1999 Output Total 750 / 750 700 / 700 Balance 400 / 400 1300 / 1300 Weight 83.8 kg Intake: IV 515 / 515 1999 NS Inj 1,000 ML @ Wide Open IV. 1999 SIG BOLUS MERON Rx#:[id number] Vancomycin Inj 1,500 MG In NS 515 / 515 Inj 500 ML @ 250 mls/hr IV.SIG ONCE ONE Rx#:[id number] Oral 635 / 635 Output: Urine 750 / 750 700 / 700 Other: # Voids 1 # Incontinent Voids 3 Date of Last Bowel Movement 08/14/18 # Bowel Movements 1 Result Diagrams: 08/15/18 06:15 08/15/18 06:15 Laboratory Results: Laboratory Results - last 24 hr 08/14/18 08/14/18 08/14/18 12:13 14:03 14:03 WBC RBC Hgb Hct MCV MCH MCHC RDW Plt Count MPV Prelim Diff (Auto) WBC Differential Seg Neuts % (Manual) Band Neuts % (Manual) Monocytes % (Manual) Abs Neuts (Manual) Differential Comment Toxic Granulation Toxic Vacuolation Platelet Estimate Platelet Morphology Sodium Potassium Chloride Carbon Dioxide Anion Gap BUN Creatinine Estimated GFR POC Glucose 115 H Random Glucose Lactic Acid 7.0 H* Calcium Phosphorus Magnesium Iron TIBC % Saturation Ferritin B-Natriuretic Peptide 376 H Albumin Urine Color Urine Clarity Urine pH Ur Specific [place] Urine Protein Urine Glucose (UA) Urine Ketones Urine Occult Blood Urine Nitrate Urine Bilirubin Urine Urobilinogen Ur Leukocyte Esterase Urine RBC Urine WBC Urine WBC Clumps Ur Squamous Epith Cells Urine Bacteria Urine Mucus Micro UA Comment Ur Microscopic Review Urine Culture Comments Random Vancomycin 08/14/18 08/14/18 08/14/18 16:10 20:02 21:03 WBC RBC Hgb Hct MCV MCH MCHC RDW Plt Count MPV Prelim Diff (Auto) WBC Differential Seg Neuts % (Manual) Band Neuts % (Manual) Monocytes % (Manual) Abs Neuts (Manual) Differential Comment Toxic Granulation Toxic Vacuolation Platelet Estimate Platelet Morphology Sodium Potassium Chloride Carbon Dioxide Anion Gap BUN Creatinine Estimated GFR POC Glucose 150 H 212 H Random Glucose Lactic Acid 6.4 H* Calcium Phosphorus Magnesium Iron TIBC % Saturation Ferritin B-Natriuretic Peptide Albumin Urine Color Urine Clarity Urine pH Ur Specific [place] Urine Protein Urine Glucose (UA) Urine Ketones Urine Occult Blood Urine Nitrate Urine Bilirubin Urine Urobilinogen Ur Leukocyte Esterase Urine RBC Urine WBC Urine WBC Clumps Ur Squamous Epith Cells Urine Bacteria Urine Mucus Micro UA Comment Ur Microscopic Review Urine Culture Comments Random Vancomycin 08/14/18 08/15/18 08/15/18 21:47 06:15 06:15 WBC 18.0 H RBC 3.35 L Hgb 9.4 L Hct 29.2 L MCV 87.2 MCH 28.1 MCHC 32.3 RDW 17.4 H Plt Count 27 L MPV 11.5 H Prelim Diff (Auto) Manual diff required WBC Differential Manual diff final Seg Neuts % (Manual) 95 H Band Neuts % (Manual) 3 Monocytes % (Manual) 2 Abs Neuts (Manual) 17.6 H Differential Comment . Toxic Granulation 2+ H Toxic Vacuolation Present H Platelet Estimate Low L Platelet Morphology Enlarged H Sodium 141 Potassium 3.7 Chloride 105 Carbon Dioxide 23.5 Anion Gap 13 BUN 79 H Creatinine 1.43 H Estimated GFR 47 L POC Glucose Random Glucose 225 H D Lactic Acid Calcium 7.8 L Phosphorus 4.2 Magnesium 2.5 Iron TIBC % Saturation Ferritin B-Natriuretic Peptide Albumin 1.8 L Urine Color Yellow Urine Clarity Hazy H Urine pH 6.0 Ur Specific [place] 1.012 Urine Protein Negative Urine Glucose (UA) 50 Urine Ketones Negative Urine Occult Blood Moderate H Urine Nitrate Negative Urine Bilirubin Negative Urine Urobilinogen Less than 2 Ur Leukocyte Esterase Large H Urine RBC 2 Urine WBC 48 H Urine WBC Clumps Rare H Ur Squamous Epith Cells <1 Urine Bacteria Occasional H Urine Mucus Few H Micro UA Comment Culture indicated Ur Microscopic Review Not Reportable Urine Culture Comments Culture indicated Random Vancomycin 10.8 08/15/18 08/15/18 08/15/18 06:15 06:15 06:15 WBC RBC Hgb Hct MCV MCH MCHC RDW Plt Count MPV Prelim Diff (Auto) WBC Differential Seg Neuts % (Manual) Band Neuts % (Manual) Monocytes % (Manual) Abs Neuts (Manual) Differential Comment Toxic Granulation Toxic Vacuolation Platelet Estimate Platelet Morphology Sodium Potassium Chloride Carbon Dioxide Anion Gap BUN Creatinine Estimated GFR POC Glucose Random Glucose Lactic Acid 5.3 H* Calcium Phosphorus Magnesium Iron 15 L TIBC 232 L % Saturation 6.5 L Ferritin 131 B-Natriuretic Peptide 303 H Albumin Urine Color Urine Clarity Urine pH Ur Specific [place] Urine Protein Urine Glucose (UA) Urine Ketones Urine Occult Blood Urine Nitrate Urine Bilirubin Urine Urobilinogen Ur Leukocyte Esterase Urine RBC Urine WBC Urine WBC Clumps Ur Squamous Epith Cells Urine Bacteria Urine Mucus Micro UA Comment Ur Microscopic Review Urine Culture Comments Random Vancomycin 08/15/18 08:55 WBC RBC Hgb Hct MCV MCH MCHC RDW Plt Count MPV Prelim Diff (Auto) WBC Differential Seg Neuts % (Manual) Band Neuts % (Manual) Monocytes % (Manual) Abs Neuts (Manual) Differential Comment Toxic Granulation Toxic Vacuolation Platelet Estimate Platelet Morphology Sodium Potassium Chloride Carbon Dioxide Anion Gap BUN Creatinine Estimated GFR POC Glucose 240 H Random Glucose Lactic Acid Calcium Phosphorus Magnesium Iron TIBC % Saturation Ferritin B-Natriuretic Peptide Albumin Urine Color Urine Clarity Urine pH Ur Specific [place] Urine Protein Urine Glucose (UA) Urine Ketones Urine Occult Blood Urine Nitrate Urine Bilirubin Urine Urobilinogen Ur Leukocyte Esterase Urine RBC Urine WBC Urine WBC Clumps Ur Squamous Epith Cells Urine Bacteria Urine Mucus Micro UA Comment Ur Microscopic Review Urine Culture Comments Random Vancomycin Culture Results: Microbiology 08/13/18 09:17 Aerobic Blood Culture - Final Blood - Peripheral Staphylococcus aureus Anaerobic Blood Culture - Final Staphylococcus aureus 08/13/18 09:11 Aerobic Blood Culture - Preliminary Blood - Peripheral Staphylococcus aureus Anaerobic Blood Culture - Final Staphylococcus aureus Imaging Studies: Impressions Chest X-Ray 08/15/18 00:00 CONCLUSION: No acute cardiopulmonary disease. Medications: Active Medications Generic Name Dose Route Start Last Admin Trade Name Freq PRN Reason Stop Dose Admin Acetaminophen 650 mg 08/02/18 04:18 08/10/18 03:05 Tylenol PO 650 mg Q6H PRN Administration PAIN 1-2 OR FEVER >101F Albuterol 2.5 mg 08/08/18 08:57 08/13/18 05:01 Albuterol Neb (Prn) NEB 2.5 mg Q2HR NEB PRN Administration DYSPNEA Carvedilol 3.125 mg 08/05/18 09:00 08/14/18 21:07 Coreg PO 3.125 mg BID MERON Administration Potassium Chloride 20 meq in 100 mls @ 50 mls/hr 08/05/18 08:03 08/05/18 17: 14 Kcl 20 Meq Premix Inj IV.SIG Infused Q2H PRN Infusion For Potassium 2.8 - 3.2 mEq/L Potassium Phosphate 30 mmol/ 260 mls @ 42 mls/hr 08/05/18 08:03 08/07/18 11: 42 Sodium Chloride IV.SIG Infused UNSCH PRN Infusion SEE LABEL COMMENTS Sodium Chloride 1,000 mls @ 0 mls/hr 08/14/18 15:18 08/14/18 19:00 Ns Inj IV.SIG Infused BOLUS MERON Infusion Wide Open Insulin Aspart 0 unit 08/08/18 12:00 08/15/18 09:18 Novolog Insulin Correctional Sugar Inj SQ 3 unit ACHS MERON Administration Protocol Lisinopril 2.5 mg 08/05/18 09:00 08/14/18 10:55 Prinivil PO Not Given DAILY MERON Metformin HCl 1,000 mg 08/12/18 09:00 08/15/18 09:17 Glucophage PO 1,000 mg BID MERON Administration Morphine Sulfate 2 mg 08/12/18 07:21 08/13/18 00:47 Morphine Inj IV.PUSH 2 mg Q3H PRN Administration BREAKTHROUGH PAIN Multi-Ingredient Mouthwash/Gargle 10 ml 10/16/18 18:00 08/15/18 09:18 Magic Mouthwash Adult Liq SWISH-SWAL 10 ml QID MERON Administration Oxycodone HCl 5 mg 08/12/18 10:13 08/14/18 12:25 Roxicodone PO 5 mg Q4H PRN Administration PAIN SCALE 3 TO 5 Oxycodone HCl 10 mg 08/12/18 10:13 08/12/18 21:29 Roxicodone PO 10 mg Q4H PRN Administration PAIN SCALE 6 TO 10 Pantoprazole Sodium 40 mg 08/11/18 21:00 08/15/18 09:18 Protonix PO 40 mg BID MERON Administration Pioglitazone HCl 45 mg 08/12/18 09:00 08/15/18 09:17 Actos PO 45 mg DAILY MERON Administration Polyethylene Glycol 17 gm 08/08/18 11:45 08/15/18 09:05 Miralax PO Not Given DAILY MERON Potassium Bicarb/Potassium Chloride 50 meq 08/05/18 08:43 08/07/18 22:30 K-Lyte Cl Eff PO 50 meq UNSCH PRN Administration For Potassium 3.3 - 3.5 mEq/L Potassium Phosphate 2,000 mg 08/05/18 08:03 08/06/18 15:48 K-Phos Original PO 2,000 mg Q4H PRN Administration Phosphorus Less Than 2.5 mg/dL Prednisone 50 mg 08/14/18 12:00 08/15/18 09:17 Deltasone PO 50 mg DAILY MERON Administration Romiplostim 89 mcg 08/09/18 10:00 08/09/18 09:40 Nplate Inj SQ 89 mcg Q7D MERON Administration Senna/Docusate Sodium 1 tab 08/02/18 09:00 08/15/18 09:16 Lisa-Colace PO Not Given BID MERON Sitagliptin Phosphate 100 mg 08/12/18 09:00 08/15/18 09:17 Januvia PO 100 mg DAILY MERON Administration Sodium Chloride 2 ml 08/02/18 09:00 08/14/18 21:09 Ns Flush IV.FLUSH 2 ml BID MERON Administration Sodium Chloride 2 ml 08/02/18 04:18 08/13/18 10:16 Ns Flush IV.FLUSH 2 ml PRN PRN Administration FLUSH AFTER USING IV ACCESS Tamsulosin HCl 0.4 mg 08/02/18 09:00 08/14/18 13:15 Flomax PO Not Given DAILY MERON Tramadol HCl 50 mg 08/12/18 07:21 08/12/18 17:51 Ultram PO 50 mg Q4H PRN Administration PAIN SCALE 3 TO 5 Objective Remarks: GENERAL: Ill-appearing elderly male patient, in no acute distress. +Lethargic. SKIN: Pale, warm and dry. Bruises to bilateral arms. HEAD: Normocephalic. EYES: No scleral icterus. No injection or drainage. NECK: Supple, trachea midline. CARDIOVASCULAR: S1/S2 without murmurs. RESPIRATORY: Anterior breath sounds with rhonchi throughout, equal bilaterally. Nonlabored at rest. GASTROINTESTINAL: Abdomen soft, distended, non-tender. EXTREMITIES: No cyanosis, or edema. MUSCULOSKELETAL: Decreased muscle tone. NEUROLOGICAL: + Lethargic, answers questions. Assessment/Plan - Plan Mr. Butterfield is a pleasant 83-year-old male patient who is currently hospitalized for a GI bleed. Hematology was consulted for severe thrombocytopenia. 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 Plan: 1. Acute ITP. Status post immunoglobulin on 08/04 & 08/08 and Nplate on . Platelet count has increased to 27,000. Continue oral prednisone. Continue Nplate, scheduled for tomorrow. 2. GI bleed, management per gastroenterology. No obvious signs of bleeding, hemoglobin stable at 9.4. 3. Lethargy, likely secondary to bacteremia. Patient with positive blood cultures, growing gram-positive cocci. Infectious disease is consulted. 4. Swallow eval ordered, questionable aspiration. - Attending Statement Pt seen in room. Much deteriorated, especially in mental status. Ongoing multiple medical problems noted. Not a candidate for aggressive therapy but will continue current dose of steroids and will attempt to administer next dose of NPlate in AM as planned. Poor overall prognosis. This was discussed with Mrs. Butterfield. She is aware and thanked me for all our efforts.
--- NOTE | 2018-08-15 13:03 | P.PNIM ---
Subjective Interval history: Patient sleeping, wakes up for exam. Denies pain. at bedside says he appears to be more somnolent than yesterday. Physical Exam Vital signs: Vital Signs 08/14/18 15:55 08/14/18 16:00 08/14/18 18:01 Temperature 98.1 F Pulse Rate 96 H 95 H 98 H Respiratory Rate 18 18 18 Blood Pressure 96/48 L 123/50 L Pulse Oximetry 97 08/14/18 19:45 08/14/18 20:38 08/15/18 00:00 Temperature 98.1 F Pulse Rate 96 H 92 H Respiratory Rate 21 18 Blood Pressure 99/55 L Pulse Oximetry 96 08/15/18 00:20 08/15/18 00:29 08/15/18 04:00 Temperature 98.2 F Pulse Rate 88 84 Respiratory Rate 20 18 Blood Pressure 103/57 L Pulse Oximetry 95 08/15/18 04:05 08/15/18 04:35 08/15/18 11:17 Temperature 99.1 F 98.3 F Pulse Rate 104 H 103 H 97 H Respiratory Rate 21 20 Blood Pressure 117/60 98/49 L Pulse Oximetry 93 L 97 Intake & Output 08/14/18 08/15/18 08/15/18 18:59 06:59 18:59 Intake Total 1150 / 1150 1999 Output Total 750 / 750 700 / 700 Balance 400 / 400 1300 / 1300 Weight 83.8 kg Intake: IV 515 / 515 1999 NS Inj 1,000 ML @ Wide Open IV. 1999 SIG BOLUS MERON Rx#:[id number] Vancomycin Inj 1,500 MG In NS 515 / 515 Inj 500 ML @ 250 mls/hr IV.SIG ONCE ONE Rx#:[id number] Oral 635 / 635 Output: Urine 750 / 750 700 / 700 Other: # Voids 1 # Incontinent Voids 3 Date of Last Bowel Movement 08/14/18 # Bowel Movements 1 Narrative: GENERAL: 83-year-old male lying in recliner. Sleeping, wakes up for exam. No acute distress. SKIN: Warm and dry. HEAD: Normocephalic. EYES: No scleral icterus. No injection or drainage. NECK: Supple, trachea midline. No JVD. Patient does have left parotid gland enlargement and firmness. Erythema present today. No broken skin. Tender to moderate palpation. CARDIOVASCULAR: Regular rate and rhythm without murmurs, gallops, or rubs. RESPIRATORY: Breath sounds equal bilaterally, with crackles in bases bilaterally. No accessory muscle use. GASTROINTESTINAL: Abdomen soft, non-tender, nondistended. MUSCULOSKELETAL: No cyanosis, or edema. BACK: Nontender without obvious deformity. No CVA tenderness. Results - Labs CBC & Chem 7: 08/15/18 06:15 08/15/18 06:15 Laboratory Results - last 24 hr 08/14/18 08/14/18 08/14/18 14:03 14:03 16:10 WBC RBC Hgb Hct MCV MCH MCHC RDW Plt Count MPV Prelim Diff (Auto) WBC Differential Seg Neuts % (Manual) Band Neuts % (Manual) Monocytes % (Manual) Abs Neuts (Manual) Differential Comment Toxic Granulation Toxic Vacuolation Platelet Estimate Platelet Morphology Sodium Potassium Chloride Carbon Dioxide Anion Gap BUN Creatinine Estimated GFR POC Glucose 150 H Random Glucose Lactic Acid 7.0 H* Calcium Phosphorus Magnesium Iron TIBC % Saturation Ferritin B-Natriuretic Peptide 376 H Albumin Urine Color Urine Clarity Urine pH Ur Specific [place] Urine Protein Urine Glucose (UA) Urine Ketones Urine Occult Blood Urine Nitrate Urine Bilirubin Urine Urobilinogen Ur Leukocyte Esterase Urine RBC Urine WBC Urine WBC Clumps Ur Squamous Epith Cells Urine Bacteria Urine Mucus Micro UA Comment Ur Microscopic Review Urine Culture Comments Random Vancomycin 08/14/18 08/14/18 08/14/18 20:02 21:03 21:47 WBC RBC Hgb Hct MCV MCH MCHC RDW Plt Count MPV Prelim Diff (Auto) WBC Differential Seg Neuts % (Manual) Band Neuts % (Manual) Monocytes % (Manual) Abs Neuts (Manual) Differential Comment Toxic Granulation Toxic Vacuolation Platelet Estimate Platelet Morphology Sodium Potassium Chloride Carbon Dioxide Anion Gap BUN Creatinine Estimated GFR POC Glucose 212 H Random Glucose Lactic Acid 6.4 H* Calcium Phosphorus Magnesium Iron TIBC % Saturation Ferritin B-Natriuretic Peptide Albumin Urine Color Yellow Urine Clarity Hazy H Urine pH 6.0 Ur Specific [place] 1.012 Urine Protein Negative Urine Glucose (UA) 50 Urine Ketones Negative Urine Occult Blood Moderate H Urine Nitrate Negative Urine Bilirubin Negative Urine Urobilinogen Less than 2 Ur Leukocyte Esterase Large H Urine RBC 2 Urine WBC 48 H Urine WBC Clumps Rare H Ur Squamous Epith Cells <1 Urine Bacteria Occasional H Urine Mucus Few H Micro UA Comment Culture indicated Ur Microscopic Review Not Reportable Urine Culture Comments Culture indicated Random Vancomycin 08/15/18 08/15/18 08/15/18 06:15 06:15 06:15 WBC 18.0 H RBC 3.35 L Hgb 9.4 L Hct 29.2 L MCV 87.2 MCH 28.1 MCHC 32.3 RDW 17.4 H Plt Count 27 L MPV 11.5 H Prelim Diff (Auto) Manual diff required WBC Differential Manual diff final Seg Neuts % (Manual) 95 H Band Neuts % (Manual) 3 Monocytes % (Manual) 2 Abs Neuts (Manual) 17.6 H Differential Comment . Toxic Granulation 2+ H Toxic Vacuolation Present H Platelet Estimate Low L Platelet Morphology Enlarged H Sodium 141 Potassium 3.7 Chloride 105 Carbon Dioxide 23.5 Anion Gap 13 BUN 79 H Creatinine 1.43 H Estimated GFR 47 L POC Glucose Random Glucose 225 H D Lactic Acid 5.3 H* Calcium 7.8 L Phosphorus 4.2 Magnesium 2.5 Iron TIBC % Saturation Ferritin B-Natriuretic Peptide Albumin 1.8 L Urine Color Urine Clarity Urine pH Ur Specific [place] Urine Protein Urine Glucose (UA) Urine Ketones Urine Occult Blood Urine Nitrate Urine Bilirubin Urine Urobilinogen Ur Leukocyte Esterase Urine RBC Urine WBC Urine WBC Clumps Ur Squamous Epith Cells Urine Bacteria Urine Mucus Micro UA Comment Ur Microscopic Review Urine Culture Comments Random Vancomycin 10.8 08/15/18 08/15/18 08/15/18 06:15 06:15 08:55 WBC RBC Hgb Hct MCV MCH MCHC RDW Plt Count MPV Prelim Diff (Auto) WBC Differential Seg Neuts % (Manual) Band Neuts % (Manual) Monocytes % (Manual) Abs Neuts (Manual) Differential Comment Toxic Granulation Toxic Vacuolation Platelet Estimate Platelet Morphology Sodium Potassium Chloride Carbon Dioxide Anion Gap BUN Creatinine Estimated GFR POC Glucose 240 H Random Glucose Lactic Acid Calcium Phosphorus Magnesium Iron 15 L TIBC 232 L % Saturation 6.5 L Ferritin 131 B-Natriuretic Peptide 303 H Albumin Urine Color Urine Clarity Urine pH Ur Specific [place] Urine Protein Urine Glucose (UA) Urine Ketones Urine Occult Blood Urine Nitrate Urine Bilirubin Urine Urobilinogen Ur Leukocyte Esterase Urine RBC Urine WBC Urine WBC Clumps Ur Squamous Epith Cells Urine Bacteria Urine Mucus Micro UA Comment Ur Microscopic Review Urine Culture Comments Random Vancomycin 08/15/18 11:46 WBC RBC Hgb Hct MCV MCH MCHC RDW Plt Count MPV Prelim Diff (Auto) WBC Differential Seg Neuts % (Manual) Band Neuts % (Manual) Monocytes % (Manual) Abs Neuts (Manual) Differential Comment Toxic Granulation Toxic Vacuolation Platelet Estimate Platelet Morphology Sodium Potassium Chloride Carbon Dioxide Anion Gap BUN Creatinine Estimated GFR POC Glucose 250 H Random Glucose Lactic Acid Calcium Phosphorus Magnesium Iron TIBC % Saturation Ferritin B-Natriuretic Peptide Albumin Urine Color Urine Clarity Urine pH Ur Specific [place] Urine Protein Urine Glucose (UA) Urine Ketones Urine Occult Blood Urine Nitrate Urine Bilirubin Urine Urobilinogen Ur Leukocyte Esterase Urine RBC Urine WBC Urine WBC Clumps Ur Squamous Epith Cells Urine Bacteria Urine Mucus Micro UA Comment Ur Microscopic Review Urine Culture Comments Random Vancomycin Microbiology 08/13/18 09:17 Blood - Peripheral Aerobic Blood Culture - Final Staphylococcus aureus 08/13/18 09:17 Blood - Peripheral Anaerobic Blood Culture - Final Staphylococcus aureus 08/13/18 09:11 Blood - Peripheral Aerobic Blood Culture - Preliminary Staphylococcus aureus 08/13/18 09:11 Blood - Peripheral Anaerobic Blood Culture - Final Staphylococcus aureus - Imaging Impressions Chest X-Ray 08/15/18 00:00 CONCLUSION: No acute cardiopulmonary disease. Assessment and Plan - Plan Severe thrombocytopenia - ITP Acute normocytic anemia GI bleed Hyperglycemia secondary to steroid Hx DM, A1c 6.[address] abd. Hx Prostate ca s/p radiation tx. Acute systolic heart failure Atrial flutter Elevated AST Hypoalbuminemia Right shoulder pain with limited range of motion, left shoulder and nec pain and tenderness s/p fall with right rib fx. Encephalopathy Plan Neuro: head CT 08/10: negative acute bleed. Somnolence resolved. Monitor neuro status and avoid sedatives. Pulm: Continue with Oxygen keep sats >92% Albuterol/ipratropium aerosols every 6 hours with albuterol aerosols every 2 hours as needed dyspnea CV: Monitor HR and BP keep MAP>65mmHg Echo showed severe LV dysfunction with EF 30-35%. Repeat echocardiogram in 3 months Continue Lisinopril 2.5mg daily and carvedilol 3.125mg BID. Not a candidate for ASA or systemic anticoagulation due to severe thrombocytopenia. Will also need ischemic evaluation when patient more stable and hematologic abnormalities improved Cards ff-Dr. Nation = 08/13. Fluid overload, iatrogenic. Chest x-ray personally reviewed with pulmonary edema on chest x-ray, fluid overload with BNP in the 1200s. Will diurese and add fluid restrictions. Hold off on IV fluids. = 08/14. Continue with fluid restrictions. Creatinine 1.36 secondary to sepsis , bacteremia. : Monitor renal function, I/O's, electrolytes replacement per protocol. Continue tamsulosin 0.4 mg daily GI: On PO cardiac diet. IV pantoprazole 40mg BID switched to p.o. GI is following. Per nursing, patient refused hydrocortisone supp BID. Possible endoscopy in future when stable and platelet count over 50,000 //Sepsis //Staph aureus bacteremia //Lactic acidosis Monitor CBC, coags, s/p transfusion 6u PRBC and 6 u PLT since admission: Hematology is following- received IVIG x 2 and Nplate on methylprednisolone succinate 250mg IV Q24, will clarify with hematology if steroid can be weaned as patient is hyperglycemic Haptoglobin was 117. LDH was elevated to 71. UA negative for hemolysis. = 08/13. Leukocytosis secondary to steroids. Hematology following. Appreciate assistance. Platelets 22,000. No signs of bleeding. Hemoglobin stable. Continue to monitor. = 08/14. Suspected sepsis. Gram-positive bacteremia. Consult infectious disease. Echocardiogram started on vancomycin. Continue to monitor. = 08/15. staph aureus bacteremia. Also with left-sided parotitis. Will check amylase. Lactic acidosis improving slightly. Patient appears to be euvolemic. Lactic acid could also be D lactic acidosis from metronidazole. Will follow up lactic acid. Follow-up left carotid ultrasound and ENT consultation. Endo: Restart metformin, Januvia and Actos. Decrease Levemir to 15 units. SSC and hypoglycemia protocol = 08/13. Glucose acceptable in the 130s. Continue current regimen. = 08/14. Glucose elevated in the 200s. Will start Levemir twice daily. Musc: Unremarkable right shoulder CT. Check neck CT. Continue PT , pain mgt counselled re narcs DVT GI prophylaxis -Teds SCDs -No pharmacological DVT prophylaxis due to severe thrombocytopenia and GI bleed -Pantoprazole twice daily stable to transfer out of ICU to step-down unit. Discharge Planning: Continued inpatient treatment PT recommends home with home health. Will need hematology clearance.
--- NOTE | 2018-08-15 13:59 | US ---
EXAM DATE: 08/15/2018 12:00 AM EDT AGE/SEX: 83 years / Male INDICATIONS: Left facial swelling. CLINICAL DATA: This is the patient's initial encounter. Patient reports that signs and symptoms have been present for 3 days and indicates a pain score of 0/10. MEDICAL/SURGICAL HISTORY: Diabetes. Tibia/fibula fracture. Psoriasis. Idiopathic thrombocytopen ic purpura. Prostate cancer. Radiation therapy. Platelet transfusion. None. COMPARISON: No prior exams available for comparison. FINDINGS: Examination of the patient's left face with dedicated and focused attention to the area of the palpab le lump demonstrates no evidence for fluid collections or mass. CONCLUSION: 1. Unremarkable study. Electronically signed by: Danis Briceño MD 08/15/2018 1:58 PM EDT
[2018-08-15] MEDS ORDERED: Insulin Detemir Inj 1,000 UNIT/10 ML Vial SQ SCH (21:00)
--- NOTE | 2018-08-16 01:16 | XR ---
EXAM DATE: 08/16/2018 12:18 AM EDT AGE/SEX: 83 years / Male INDICATIONS: Shortness of breath. CLINICAL DATA: This is the patient's subsequent encounter. Patient reports that signs and symptoms h ave been present for 1 week and indicates a pain score of Nonresponsive. MEDICAL/SURGICAL HISTORY: Diabetes mellitus type II. None. COMPARISON: [facility] [place]ST 1V SINGLE AP, 08/15/2018. . FINDINGS: The heart size is enlarged. There is mild patchy density seen at bases being worse on the left. The m id and upper lungs are clear. CONCLUSION: Patchy consolidation or atelectasis in the bases being worse on the left. Cardiomegaly. Electronically signed by: Noah Escalante MD 08/16/2018 1:15 AM EDT
[2018-08-16 01:31] LABS: ABG Base Excess -1.9 mmol/L (-2-2); ABG PCO2 31 mmHg (38-42); ABG PO2 77 mmHG (61-120)
[2018-08-16 06:00] LABS: ABG Base Excess -2.2 mmol/L (-2-2); ABG PCO2 30 mmHg (38-42); ABG PO2 94 mmHG (61-120)
[2018-08-16] MEDS ORDERED: Sodium Chlor 0.9% Inj 500 ML IV.SIG SCH (06:00)
[2018-08-16 06:18] LABS: Baso % (Auto) 0.1 % (0.0-2.0); Hematocrit 28.9 % (39.0-51.0); Hemoglobin 9.3 gm/dL (13.0-17.0); Lymph # (Auto) 0.4 th/mm3 (1.0-4.8); Lymph % (Auto) 2.5 % (9.0-44.0); Mean Corpuscular HGB Conc 32.1 % (32.0-36.0); Mean Corpuscular Volume 87.3 fL (80.0-100.0); Mean Platelet Volume 13.6 fL (7.0-11.0); Mono # (Auto) 0.5 th/mm3 (0.0-0.9); Mono % (Auto) 3.1 % (0.0-8.0); Neut # (Auto) 13.9 th/mm3 (1.8-7.7); Neut % (Auto) 94.3 % (16.0-70.0); Platelet Count 27 th/mm3 (150-450); Red Blood Count 3.31 mil/mm3 (4.50-5.90); Red Cell Distribution Width 17.6 % (11.6-17.2); White Blood Count 14.8 th/mm3 (4.0-11.0)
--- NOTE | 2018-08-16 06:29 | XR ---
EXAM DATE: 08/16/2018 6:02 AM EDT AGE/SEX: 83 years / Male INDICATIONS: Short of breath. CLINICAL DATA: This is the patient's initial encounter. Patient reports that signs and symptoms have been present for 1 day and indicates a pain score of 0/10. MEDICAL/SURGICAL HISTORY: Non-responsive. Non-responsive. COMPARISON: [facility] – [place], CHEST 1V SINGLE AP, 08/16/2018. . FINDINGS: The heart size is enlarged. The lungs are grossly clear. No effusion is seen. CONCLUSION: Cardiomegaly. Electronically signed by: Noah Escalante MD 08/16/2018 6:28 AM EDT
--- NOTE | 2018-08-16 06:37 | P.PNADD ---
Addendum to Inpatient Note Reason for Addendum: Additional Documentation Additional information: Wyatt heard overhead and residents responded. Wyatt called for worsening lethargy. Nurse reports patient is minimally responsive at baseline but she noted he was more lethargic than before. Patient on bipap laying in bed. Initially shook his head when asked if he had any pain, opened his eyes to commands and moved extremities. Bedside glucose of 214. O: Temperature: 99F, blood pressure 80/43, heart rate 134, O2 sat 98% on BiPAP GEN: Minimally responsive to commands Cardio:RRR, normal s1 and s2 Resp: crackles at lower bases BL Abd: soft, nondistended, nontender, positive BS Ext: well perfused, no LE edema BL A/P: Patient is a 83-year-old male admitted initially for management of GI bleed and later developed ITP ( recent platelets of 27). Patient also found to be bacteremic with positive blood culture resulting in staph aureus being treated with vancomycin. Patient has a EF of 35%. Recent chest x-ray done on 08/16 showed lower left side consolidation. On exam patient minimally responsive with crackles noted on bilateral on lower bases Patient received 500 mL bolus and responded appropriately with repeat blood pressure as 90s/50s however patient's heart rate fluctuating from 140s to low 50s. test ordered: EKG chest x-ray labs (cbc,cmp, lactic acid) AB.4 improved from prior ABG Due to instability of HR patient was transferred to [facility]
[2018-08-16] MEDS ORDERED: Etomidate Inj 40 MG/20 ML Vial IV.PUSH ONE ×2 (06:48→06:49)
[2018-08-16 06:52] LABS: Albumin 1.6 g/dL (3.4-5.0); Calcium 7.7 mg/dL (8.5-10.1); Carbon Dioxide 23.5 meq/L (21.0-32.0); Free T4 (Free Thyroxine) 1.55 ng/dL (0.76-1.46); Magnesium 3.1 mg/dL (1.5-2.5); Potassium 3.9 meq/L (3.5-5.1)
[2018-08-16] MEDS ORDERED: Propofol 1000 mg/100 ml Inj 1,000 MG/100 ML BOTTLE IV.CONT PRN (07:02)
[2018-08-16] MEDS ORDERED: Gelatin 12 MM/7 MM Topical Foam ONE (07:29)
--- NOTE | 2018-08-16 07:57 | P.PCN ---
Date of procedure: 08/16/18 Pre-op diagnosis: Acute respiratory failure Post-op diagnosis: same Procedure: DATE: 08/16/2018 PROCEDURE: Orotracheal intubation INDICATION: Acute respiratory failure DETAILS OF PROCEDURE The patient was placed in optimal position and preoxygenated with 100% FiO2 via bag valve mask. At the start oxygen saturation was 97 %. The patient was administered 20 mg etomidate IV and 50 mg rocuronium IV. I entered the oropharynx with a size 4 laryngoscope blade and obtained a grade 2 view of the airway. On single attempt a size 8.0 cuffed endotracheal tube was passed through the vocal cords. Correct tube location was confirmed with end tidal CO2 detector and by auscultating over bilateral lung segundo. The endotracheal tube was secured with adhesive tape at a depth of 24 cm at the lips. The patient was connected to the ventilator. The patient tolerated the procedure well without any apparent complications. Oxygen saturations were maintained greater than 95% all times. STAT chest x-ray pending at time of dictation.
--- NOTE | 2018-08-16 07:58 | P.PCN ---
Date of procedure: 08/16/18 Pre-op diagnosis: Acute respiratory failure/hypotension/sepsis Post-op diagnosis: same Procedure: DATE: 08/16/2018 CENTRAL LINE PLACEMENT: Left internal jugular vein. Ultrasound-guided INDICATION: Central venous access CONSENT Informed consent for procedure was obtained from Judith. DESCRIPTION OF THE PROCEDURE The patient was placed in supine position. The skin was cleansed with Chloraprep. Additional barrier precautions included large sterile drape, sterile gloves, sterile gown, face mask, and hat. 1 % lidocaine was used for local anesthesia. Under direct ultrasound guidance and on initial attempt, the vein was accessed with an introducer needle. The guide wire was advanced and the tract was dilated. Using Seldinger technique a 7 Turkmen 20 cm antimicrobial coated triple-lumen catheter was advanced to a depth of 20 centimeters. The guide wire was removed. All ports had good return of dark venous blood and flushed easily with saline. The central line was secured with 2.0 silk. A sterile dressing with antibiotic disc was applied. StatLock was not used as unable to adhesive to skin. ESTIMATED BLOOD LOSS: Minimal COMPLICATIONS: No apparent complications. STAT chest x-ray pending at time of dictation.
--- NOTE | 2018-08-16 07:59 | P.PCN ---
Date of procedure: 08/16/18 Pre-op diagnosis: Acute respiratory failure/hypotension/sepsis/ITP Post-op diagnosis: same Procedure: DATE: 08/16/2018 PROCEDURE: Left femoral arterial catheter placement INDICATION: Severe hypotension DETAILS OF PROCEDURE The patient was placed in supine position. The skin was cleansed with Chloraprep. Additional barrier precautions included large sterile drape, sterile gloves, sterile gown, face mask, and hat. 1% lidocaine was used for local anesthesia. Under direct ultrasound guidance and on the initial attempt, the artery was accessed with an introducer needle. The guide wire was advanced. Using Seldinger technique 20 gauge arterial catheter was placed. The guide wire was removed. The catheter was connected to a transducer line and flushed with saline. The video monitor displayed normal arterial wave forms. The catheter was secured with 2-0 silk. A sterile dressing with antibiotic disc was applied. ESTIMATED BLOOD LOSS: minimal COMPLICATIONS: None
[2018-08-16] MEDS ORDERED: Pantoprazole Inj 40 MG Vial IV.PUSH SCH (08:00)
--- NOTE | 2018-08-16 08:18 | ECG ---
Date Performed: 08/16/2018 Time Performed: 06:04:38 PTAGE: 83 years EKG: Baseline artifact present Probable atrial flutter with rapid response IV conduction defect Nonspecific ST and T wave abnormalities Low QRS voltages in limb leads Abnormal ECG Prior EKG has unc lear rhythm but it appears atrial flutter is probably present now. DOCTOR: Tony Richards Interpretating Date/Time 08/16/2018 08:17:07
[2018-08-16 08:22] LABS: ABG Base Excess -2.8 mmol/L (-2-2); ABG PCO2 40 mmHg (38-42); ABG PO2 286 mmHg (61-120)
[2018-08-16 08:24] LABS: Monocytes 1 % (0-8); Platelet Morphology Normal (Normal); Tallied Nucleated RBC 1 (0-0)
[2018-08-16 08:25] LABS: Toxic Granulation 1+
--- NOTE | 2018-08-16 08:26 | P.PNCC ---
Subjective Subjective Remarks/Hospital Course: 83-year-old very pleasant gentleman with history of prostate cancer on hormonal therapy with the last course received in end of May, presents with generalized weakness and gross blood on rectal exam with very loose watery blood. Patient initially was hypotensive prior to arrival with the blood pressure 80/50, after liter of fluid prior to arrival by EVAC the patient's blood pressure now 120/59. Laboratory abnormalities notable for a platelet count of 7000, hemoglobin of 7.1. These are critical levels and a 6 pack of platelets as well as 2 PRBCs now and 2 in reserve been ordered by ED attending, as well as Protonix drip, and octreotide. The patient does have a history of prostate cancer, he has been on Firmagon from his urology/oncologist. 08/03 Patient is lying in bed in NAD. s/p 2u PLT and 2u PRBC yesterday PLT 5 this morning. 08/04 No events overnight. s/p transfusion 1u PLT and 1 u PRBC yesterday PLT count 14 last night from 5. 08/05 Patient s/p transfusion 2u PRBC and 1u PLT since yesterday. Afebrile. PLT count 16 last night. 08/06 Patient seems confused and agitated this morning however he is awake and oriented to time and place. Afebrile. 08/07 Patient is lying in bed in NAD. PLT 28 this morning. 08/08: Resting in bed and somewhat confused and depressed that his platelets continue to drop. Plates were 14 this morning. He will remain stable. Tolerating diet. 08/09: Resting in bed. Less confused this a.m. Complaining of hematomas from blood draws. Being transfused 1 PRBC and 1 platelets today. Received IVIG yesterday at this hospital does not have RhoGam available 08/10: more somnolent today, but non-focal. still arouses to voice and is appropriate. more fatigued today. hgb stable. abg normal. obtained non- contrasted head CT given severe thrombocytopenia: negative for acute bleed. plt down to 20k today: giving 1 unit. ROS otherwise negative except for fatigue. SUBJECTIVE 08/11: Halicat called at 6 AM to room 236 secondary to acute altered mental status/worsening hypoxia on BiPAP. Patient has minimal response. Chest x-ray revealed no acute cardiopulmonary findings. Due to altered mental status and hypotension decision made to orotracheally intubate. Judith was notified. She will see her . Currently on norepinephrine drip to maintain mean artery pressure greater than 65. When stabilized, CT brain will be performed along with multiple laboratories. Left IJ CVL and left femoral arterial line have been placed Objective Vital Signs / I&O: Vital Signs 08/15/18 11:17 08/15/18 12:00 08/15/18 16:00 Temperature 98.3 F Pulse Rate 97 H 92 H 90 Respiratory Rate 20 18 20 Blood Pressure 98/49 L Pulse Oximetry 97 08/15/18 16:42 08/15/18 20:00 08/15/18 21:38 Temperature 98.6 F Pulse Rate 91 H 98 H Respiratory Rate 20 20 Blood Pressure 106/62 121/58 L Pulse Oximetry 96 94 L 95 08/15/18 23:29 08/16/18 00:00 08/16/18 04:00 Temperature 97.4 F L 98.5 F Pulse Rate 98 H 87 63 Respiratory Rate 22 18 22 Blood Pressure 100/50 L 106/63 Pulse Oximetry 93 L 98 08/16/18 04:11 08/16/18 04:12 08/16/18 05:00 Temperature Pulse Rate 89 133 H Respiratory Rate 22 Blood Pressure 80/44 L Pulse Oximetry 95 95 08/16/18 06:05 08/16/18 07:00 Temperature Pulse Rate 63 Respiratory Rate 20 16 Blood Pressure 91/58 L Pulse Oximetry 97 Intake & Output 08/15/18 08/16/18 08/16/18 18:59 06:59 18:59 Intake Total 622.5 / 622.5 Output Total 200 / 200 500 / 500 Balance 422.5 / 422.5 -500 / -500 Weight 83.6 kg Intake: IV 262.5 / 262.5 Vancomycin Inj 1,250 MG In NS 262.5 / 262.5 Inj 250 ML @ 250 mls/hr IV.SIG Q24H [facility] Rx#:[id number] Oral 360 / 360 Output: Urine 200 / 200 500 / 500 Other: # Incontinent Voids 4 Date of Last Bowel Movement 08/15/18 08/15/18 # Bowel Movements 1 2 Result Diagrams: 08/16/18 06:00 08/16/18 06:00 Other Results: Microbiology 08/14/18 21:47 Clean Catch Urine Urine Culture - Preliminary Immature growth - reincubate 08/13/18 09:17 Blood - Peripheral Aerobic Blood Culture - Final Staphylococcus aureus 08/13/18 09:17 Blood - Peripheral Anaerobic Blood Culture - Final Staphylococcus aureus 08/13/18 09:11 Blood - Peripheral Aerobic Blood Culture - Preliminary Staphylococcus aureus 08/13/18 09:11 Blood - Peripheral Anaerobic Blood Culture - Final Staphylococcus aureus Imaging: Abdomen/Pelvis CT 08/02/18 04:01 CONCLUSION: 1. 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 2. Nonacute findings include severe atherosclerotic disease, cholelithiasis, stable complex cystic lesion of the left kidney measuring 6.5 cm, and cirrhotic liver. Head CT 08/02/18 04:01 CONCLUSION: No acute intracranial abnormality is identified. . Chest X-Ray 08/05/18 08:08 CONCLUSION: Radiographic findings consistent with congestive heart failure and pulmonary edema. These findings are new as compared to the CT of August 02, 2018 Chest X-Ray 08/07/18 08:39 CONCLUSION: 1. Cardiomegaly with mild positive fluid balance. 2. Minimal bibasilar airspace disease, presumably atelectasis. Head CT 08/10/18 00:00 CONCLUSION: 1. Negative CT Head non contrast. . Humerus CT 08/11/18 00:00 CONCLUSION: 1. Nonacute appearing right-sided rib fractures. 2. No evidence for humerus fracture. 3. Note is made of ascites in the upper abdomen. Cervical Spine CT 08/12/18 00:00 CONCLUSION: 1. Degenerative disc change at C5-C6 with broad-based disc osteophyte complex with mass effect on the anterior thecal sac. This comes in close contact with the anterior cord which is poorly visualized. 2. Mild anterior spondylolisthesis of C4 on C5 approximately 2 mm. There is mild retrolisthesis of C5 on C6. 3. Mild disc osteophyte complex at C3-4. 4. Narrowing of the left neural foramina at C2-3 and C3-4 levels as well as narrowing of the right neural foramina at C5-6. Chest X-Ray 08/13/18 05:29 CONCLUSION: Cardiomegaly and minimal left basilar density. Chest X-Ray 08/14/18 00:00 CONCLUSION: 1. Cardiomegaly with mild positive fluid balance. 2. Stable left lower lung zone airspace disease, presumably atelectasis. Chest X-Ray 08/15/18 00:00 CONCLUSION: No acute cardiopulmonary disease. Neck Ultrasound 08/15/18 00:00 CONCLUSION: 1. Unremarkable study. Chest X-Ray 08/16/18 00:18 CONCLUSION: Patchy consolidation or atelectasis in the bases being worse on the left. Cardiomegaly. Chest X-Ray 08/16/18 06:02 CONCLUSION: Cardiomegaly. Objective Remarks: GENERAL: Patient is 83 yo lying in bed currently orotracheally intubated SKIN: Warm and dry. Multiple ecchymoses bilateral upper extremities HEAD: Normocephalic. EYES: No scleral icterus. No injection or drainage. Pupils are about 2 mm bilaterally and reactive. No petechiae NECK: Supple, trachea midline. No JVD. Left IJ CVL is clean dry and intact CARDIOVASCULAR: IRR. Tachycardia. S1, S2 predose 4. I do not appreciate murmur or rub RESPIRATORY: Diminished breath sounds throughout. No wheezing. Positive accessory muscle use GASTROINTESTINAL: Abdomen soft, non-tender, nondistended. Hypoactive bowel sounds appreciated. MUSCULOSKELETAL: 1+ bilateral lower extremity peripheral edema. Left femoral arterial line placed without hematoma Neuro: Prior to intubation, opened eyes and voiced weakly. Nods his head. Able to move all 4 extremities spontaneously.. Assessment and Plan - Assessment and Plan Plan: Neuro/Psych: Acute encephalopathy Currently on propofol/fentanyl drips for sedation/analgesia while intubated Goal of RA SS -2 Daily sedation vacation Check CT brain when clinically stable CT brain 08/10: negative acute bleed Acetaminophen 656 hours as needed fever CV: Lactic acidosis Severe sepsis Acute systolic heart failure History of wide complex tachycardia Atrial flutter with 2-1 aberrancy Atherosclerotic vascular disease Currently on norepinephrine drip at 20mcg/min to maintain mean arterial pressure greater than equal to 65 Check CVP Serial lactates until cleared. Currently greater than 5 Monitor HR and BP keep MAP>65mmHg 08/03 Echo showed severe LV dysfunction with EF 30-35% 08/14 echocardiogram revealed EF 30-35%. Severe LV dysfunction. PA P 34 mmHg. Question mitral valve lesion of posterior leaflet With hypotension will hold lisinopril 2.5mg daily and carvedilol 3.125mg BID. Not a candidate for ASA or systemic anticoagulation due to severe thrombocytopenia Cards has intermittently followed-Dr. Nation Not a candidate for anticoagulation secondary to severe thrombocytopenia Resp: Acute hypoxic hypercapnic respiratory failure [place] / Ventilator bundle Albuterol/ipratropium aerosols every 4 hours with albuterol aerosols every 2 hours as needed dyspnea Spontaneous breathing trials when clinically indicated Follow-up chest x-ray and ABG post intubation GI: ? GI bleed Proctitis per CT Hypoalbuminemia/moderate protein calorie malnutrition Cholelithiasis Hiatal hernia CT abdomen/pelvis revealed on 08/02 circumcision wall thickening of the rectum question proctitis. Atherosclerotic vessels. Cholelithiasis. Left renal cyst. Cirrhotic liver. Hemoglobin has remained stable. Pantoprazole 40 mg IV twice daily for GI prophylaxis Docusate serum/senna 1 tablet twice daily for bowel regimen along with polythene glycol centigrams daily Check liver function test, amylase and lipase now GI has followed recommend colonoscopy when platelet count has recovered OGT to LIWS start trickle feeds with Glucerna 1.5 if able 20 cc an hour : Hx Prostate ca s/p radiation tx. Acute urinary retention Currently [place] condom catheter. Currently holding while intubated tamsulosin 0.4 mg daily Endo: Acute hyperglycemia History of diabetes mellitus Sliding scale insulin Accu-Cheks to maintain euglycemia/aspart insulin every 4 hours Holding insulin detemir 18 units twice daily while n.p.o. Renal: Acute kidney injury Exophytic complex cystic lesion arising from the lower pole the left kidney measuring 6.5 x 5.1 cm, We will check renal ultrasound and urine electrolytes and eosinophils stat Monitor urine output Accurate I's and O's Heme: Leukocytosis Normocytic anemia ITP Severe thrombocytopenia Followed by hematology. Has received 2 episodes of IV IVIG for ITP. On 08/04 and 10/08 Currently on romiplostim 89 mcg subcu weekly for chronic ITP related thrombocytopenia. On prednisone 50 mg by tube daily per hematology. Has been transfused 6 PRBCs and 6 pack platelets since admission ID: MRSA blood cultures +08/13 Currently on vancomycin. And cefazolin Infectious disease actually following. Recommended YANETH when/if clinically stable to evaluate mitral valve. Blood cultures 07/2144+ for gram-positive cocci. Urine [id number] /[id number] /blood cultures 08/15 pending. FEN: Hypermagnesia Replace electrolytes as clinically indicated MSK: Multiple right rib fractures Cervical degenerative disc disease. CT C-spine degenerative disc change at C5-C6 with broad-based disc osteophyte complex with mass effect on the anterior thecal sac. This comes in close contact with the anterior cord which is poorly visualized. Mild anterior spondylolisthesis of C4 on C5 approximately 2 mm. There is mild retrolisthesis of C5 on C6. Mild disc osteophyte complex at C3-4. Narrowing of the left neural foramina at C2-3 and C3-4 levels as well as narrowing of the right neural foramina at C5-6. Multiple right-sided rib fractures like old seen on CT M/pelvis 08/02. Physical therapy evaluate and treat Access -Left IJ CVL day 1 placed 08/16 -Left femoral arterial line day 1 placed 08/16 Prophylaxis -GI -pantoprazole -DVT -SCD/pharmacological prophylaxis contraindicated with severe thrombocytopenia Critical care time 35 minutes. Discussed with Judith. Care plan discussed and all questions answered.
--- NOTE | 2018-08-16 08:50 | XR ---
EXAM DATE: 08/16/2018 7:55 AM EDT AGE/SEX: 83 years / Male INDICATIONS: Intubation and central line placement. CLINICAL DATA: This is the patient's subsequent encounter. Patient reports that signs and symptoms h ave been present for 4 - 6 months and indicates a pain score of Nonresponsive. MEDICAL/SURGICAL HISTORY: Diabetes. None. COMPARISON: [facility], CHEST 1V SINGLE AP, 08/16/2018. . FINDINGS: Endotracheal tube is present in good position with tip several centimeters above the obed. A left n josefa central line descends to SVC. A nasogastric tube descends into the stomach. There is consolidatio n in the left lung base which is slightly worse than on prior. Mild perihilar interstitial prominence and vascular congestion noted. Cardiac contours are unchanged. No evidence of pneumothorax. CONCLUSION: Satisfactory support line and tube positioning. Slight worsening in aeration, particularly at the lef t base. Electronically signed by: Noah Mi MD 08/16/2018 8:49 AM EDT
[2018-08-16] MEDS: Chlorhexidine 0.12% Oral Kit 15 ML UDC OROPHARYNG SCH ×2 (08:57→20:11)
[2018-08-16] MEDS: Nystatin/Diphenhydramine/Lidocaine Mouthwash (Adult) 120 ML Botttle SWISH-SWAL SCH ×4 (08:57→20:12)
[2018-08-16] MEDS: Polyethylene Glycol 3350 17 GM Packet PO SCH (08:57)
[2018-08-16] MEDS: Senna/Docusate Sodium 8.6/50 MG Tablet PO SCH ×2 (08:57→20:43)
[2018-08-16] MEDS: Carboxymethylcellulose 0.5% Opth Drops 15 ML Bottle EACH EYE SCH ×2 (08:57→20:09)
[2018-08-16] MEDS: Pantoprazole Inj 40 MG Vial IV.PUSH SCH ×2 (09:36→20:08)
[2018-08-16 09:46] LABS: Albumin 1.7 g/dL (3.4-5.0)
[2018-08-16 09:51] LABS: Total Protein 6.7 g/dL (6.4-8.2); Troponin I 0.16 ng/mL (0.02-0.05)
[2018-08-16] MEDS: ROMIPLOSTIM 250 MCG SQ SCH (10:00)
[2018-08-16] MEDS: Insulin NovoLOG Aspart Correctional Sugar Inj SQ SCH ×4 (10:13→20:09)
[2018-08-16] MEDS ORDERED: methIMAzole 5 MG Tablet PO SCH (11:00)
--- NOTE | 2018-08-16 11:37 | P.PNID ---
Subjective Remarks: Patient was transferred to intensive care on 08/15/2018. Intubated. Currently on ventilator. Awakens easily. at bedside. Afebrile. Blood culture from 08/15 has gram-positive cocci in all 4 bottles. Urine culture 08/14 has staph aureus. Previous blood culture from 1021 has staph aureus [id number]. He has a new central line in the left IJ. This is an 83-year-old white male who was admitted to the hospital on 08/02/2018 with GI bleed. He was noted to have profound thrombocytopenia. 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 His white blood cell count increased from 6.9-14.7 on 08/09/2018 and has steadily been climbing and today it is 19.2. The patient has been lethargic. He was transferred from Intensive Care Unit 1 day ago. His platelet count had increased to 50,000 on 08/09/2018 and it is decreasing and today it is 22,000. The patient is responsive, but feels tired. He appears lethargic. He complains of headache and pain in the elbow joints. He had no fever. Blood cultures were taken on 08/13/2018 and all 4 bottles have gram-positive cocci. The patient has had peripheral IV catheters. ID consulted for positive blood cultures. Lines: Left internal jugular catheter intact. Past Medical History: PAST MEDICAL HISTORY: Diabetes mellitus, psoriasis, left tibia/fibula fracture, prostate cancer. Allergies/Adverse Reactions: Allergies No Known Allergies Allergy (Verified 08/02/18 03:15) Objective Vital Signs 08/15/18 12:00 08/15/18 16:00 08/15/18 16:42 Temperature Pulse Rate 92 H 90 91 H Respiratory Rate 18 20 20 Blood Pressure 106/62 Pulse Oximetry 96 08/15/18 20:00 08/15/18 21:38 08/15/18 23:29 Temperature 98.6 F Pulse Rate 98 H 98 H Respiratory Rate 20 22 Blood Pressure 121/58 L Pulse Oximetry 94 L 95 08/16/18 00:00 08/16/18 04:00 08/16/18 04:11 Temperature 97.4 F L 98.5 F Pulse Rate 87 63 Respiratory Rate 18 22 Blood Pressure 100/50 L 106/63 Pulse Oximetry 93 L 98 95 08/16/18 04:12 08/16/18 05:00 08/16/18 06:05 Temperature Pulse Rate 89 133 H 63 Respiratory Rate 22 20 Blood Pressure 80/44 L 91/58 L Pulse Oximetry 95 08/16/18 07:00 08/16/18 08:00 08/16/18 09:25 Temperature Pulse Rate 135 H 143 H Respiratory Rate 16 23 Blood Pressure Pulse Oximetry 97 100 Intake & Output 08/15/18 08/16/18 08/16/18 18:59 06:59 18:59 Intake Total 622.5 / 622.5 605 / 605 Output Total 200 / 200 500 / 500 Balance 422.5 / 422.5 -500 / -500 605 / 605 Weight 83.6 kg Intake: IV 262.5 / 262.5 605 / 605 Levophed-Dextrose 4 mg/250 ml 250 / 250 Drip 4 mg In 250 ml @ 0 mls/hr IV.SIG .[facility] Rx#: [id number] Vancomycin Inj 1,250 MG In NS 262.5 / 262.5 Inj 250 ML @ 250 mls/hr IV.SIG Q24H [facility] Rx#:[id number] Ancef Inj 1,000 MG In NS Inj 100 / 100 100 ML @ 200 mls/hr IV.SIG Q8H [facility] Rx#:[id number] Oral 360 / 360 Output: Urine 200 / 200 500 / 500 Other: # Incontinent Voids 4 Date of Last Bowel Movement 08/15/18 08/15/18 # Bowel Movements 1 2 08/14/18 21:47 Clean Catch Urine Urine Culture - Preliminary Staphylococcus aureus 08/13/18 09:11 Blood - Peripheral Aerobic Blood Culture - Final Staphylococcus aureus 08/13/18 09:11 Blood - Peripheral Anaerobic Blood Culture - Final Staphylococcus aureus 08/15/18 11:03 Blood - Peripheral Aerobic Blood Culture - Preliminary gram positive cocci 08/15/18 11:03 Blood - Peripheral Anaerobic Blood Culture - Preliminary gram positive cocci 08/15/18 11:09 Blood - Peripheral Aerobic Blood Culture - Preliminary gram positive cocci 08/15/18 11:09 Blood - Peripheral Anaerobic Blood Culture - Preliminary gram positive cocci 08/13/18 09:17 Blood - Peripheral Aerobic Blood Culture - Final Staphylococcus aureus 08/13/18 09:17 Blood - Peripheral Anaerobic Blood Culture - Final Staphylococcus aureus Lab - Hematology Results 08/15/18 08/16/18 06:15 06:00 WBC 18.0 H 14.8 H RBC 3.35 L 3.31 L Hgb 9.4 L 9.3 L Hct 29.2 L 28.9 L MCV 87.2 87.3 MCH 28.1 28.0 MCHC 32.3 32.1 RDW 17.4 H 17.6 H Plt Count 27 L 27 L MPV 11.5 H 13.6 H Prelim Diff (Auto) Manual diff required Slide review pending Neut % (Auto) 94.3 H Lymph % (Auto) 2.5 L [place] % (Auto) 3.1 Eos % (Auto) 0.0 Baso % (Auto) 0.1 Neut # (Auto) 13.9 H Lymph # (Auto) 0.4 L [place] # (Auto) 0.5 Eos # (Auto) 0.0 Baso # (Auto) 0.0 WBC Differential Manual diff final Manual diff final Seg Neuts % (Manual) 95 H 82 H Band Neuts % (Manual) 3 17 H Monocytes % (Manual) 2 1 Abs Neuts (Manual) 17.6 H 14.7 H Nucleated RBCs/100 WBC 1 H Differential Comment . . Toxic Granulation 2+ H 1+ H Toxic Vacuolation Present H Platelet Estimate Low L Low L Platelet Morphology Enlarged H Normal Lab - Chemistry Results 08/14/18 08/14/18 08/14/18 12:13 14:03 14:03 Sodium Potassium Chloride Carbon Dioxide Anion Gap BUN Creatinine Estimated GFR POC Glucose 115 H Random Glucose Lactic Acid 7.0 H* Calcium Phosphorus Magnesium Iron TIBC % Saturation Ferritin Total Bilirubin Direct Bilirubin Indirect Bilirubin AST ALT Alkaline Phosphatase Ammonia Total Creatine Kinase Troponin I B-Natriuretic Peptide 376 H Total Protein Albumin Amylase Lipase TSH Free T4 08/14/18 08/14/18 08/14/18 16:10 20:02 21:03 Sodium Potassium Chloride Carbon Dioxide Anion Gap BUN Creatinine Estimated GFR POC Glucose 150 H 212 H Random Glucose Lactic Acid 6.4 H* Calcium Phosphorus Magnesium Iron TIBC % Saturation Ferritin Total Bilirubin Direct Bilirubin Indirect Bilirubin AST ALT Alkaline Phosphatase Ammonia Total Creatine Kinase Troponin I B-Natriuretic Peptide Total Protein Albumin Amylase Lipase TSH Free T4 08/15/18 08/15/18 08/15/18 06:15 06:15 06:15 Sodium 141 Potassium 3.7 Chloride 105 Carbon Dioxide 23.5 Anion Gap 13 BUN 79 H Creatinine 1.43 H Estimated GFR 47 L POC Glucose Random Glucose 225 H D Lactic Acid 5.3 H* Calcium 7.8 L Phosphorus 4.2 Magnesium 2.5 Iron 15 L TIBC 232 L % Saturation 6.5 L Ferritin 131 Total Bilirubin Direct Bilirubin Indirect Bilirubin AST ALT Alkaline Phosphatase Ammonia Total Creatine Kinase Troponin I B-Natriuretic Peptide Total Protein Albumin 1.8 L Amylase Lipase TSH Free T4 08/15/18 08/15/18 08/15/18 06:15 06:15 06:15 Sodium Potassium Chloride Carbon Dioxide Anion Gap BUN Creatinine Estimated GFR POC Glucose Random Glucose Lactic Acid Calcium Phosphorus Magnesium Iron TIBC % Saturation Ferritin Total Bilirubin Direct Bilirubin Indirect Bilirubin AST ALT Alkaline Phosphatase Ammonia Total Creatine Kinase Troponin I B-Natriuretic Peptide 303 H Total Protein Albumin Amylase 302 H Lipase TSH 0.023 L Free T4 08/15/18 08/15/18 08/15/18 08:55 11:46 13:12 Sodium Potassium Chloride Carbon Dioxide Anion Gap BUN Creatinine Estimated GFR POC Glucose 240 H 250 H Random Glucose Lactic Acid 5.6 H* Calcium Phosphorus Magnesium Iron TIBC % Saturation Ferritin Total Bilirubin Direct Bilirubin Indirect Bilirubin AST ALT Alkaline Phosphatase Ammonia Total Creatine Kinase Troponin I B-Natriuretic Peptide Total Protein Albumin Amylase Lipase TSH Free T4 08/15/18 08/15/18 08/16/18 16:59 19:57 05:37 Sodium Potassium Chloride Carbon Dioxide Anion Gap BUN Creatinine Estimated GFR POC Glucose 190 H 199 H 214 H Random Glucose Lactic Acid Calcium Phosphorus Magnesium Iron TIBC % Saturation Ferritin Total Bilirubin Direct Bilirubin Indirect Bilirubin AST ALT Alkaline Phosphatase Ammonia Total Creatine Kinase Troponin I B-Natriuretic Peptide Total Protein Albumin Amylase Lipase TSH Free T4 08/16/18 08/16/18 08/16/18 06:00 06:00 09:10 Sodium 145 Potassium 3.9 Chloride 108 H Carbon Dioxide 23.5 Anion Gap 14 BUN 99 H Creatinine 1.62 H Estimated GFR 41 L POC Glucose Random Glucose 203 H Lactic Acid 5.9 H* Calcium 7.7 L Phosphorus 5.0 H Magnesium 3.1 H D Iron TIBC % Saturation Ferritin Total Bilirubin 1.3 H Direct Bilirubin 0.7 H Indirect Bilirubin 0.6 AST 29 ALT 36 Alkaline Phosphatase 89 Ammonia Total Creatine Kinase 244 Troponin I 0.16 H B-Natriuretic Peptide Total Protein 6.7 D Albumin 1.6 L 1.7 L Amylase 395 H Lipase 78 TSH Free T4 1.55 H 08/16/18 09:10 Sodium Potassium Chloride Carbon Dioxide Anion Gap BUN Creatinine Estimated GFR POC Glucose Random Glucose Lactic Acid Calcium Phosphorus Magnesium Iron TIBC % Saturation Ferritin Total Bilirubin Direct Bilirubin Indirect Bilirubin AST ALT Alkaline Phosphatase Ammonia 44 H Total Creatine Kinase Troponin I B-Natriuretic Peptide Total Protein Albumin Amylase Lipase TSH Free T4 Imaging: ITS Impressions Abdomen/Pelvis CT 08/02/18 04:01 CONCLUSION: 1. 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 2. Nonacute findings include severe atherosclerotic disease, cholelithiasis, stable complex cystic lesion of the left kidney measuring 6.5 cm, and cirrhotic liver. Head CT 08/10/18 00:00 CONCLUSION: 1. Negative CT Head non contrast. . Humerus CT 08/11/18 00:00 CONCLUSION: 1. Nonacute appearing right-sided rib fractures. 2. No evidence for humerus fracture. 3. Note is made of ascites in the upper abdomen. Cervical Spine CT 08/12/18 00:00 CONCLUSION: 1. Degenerative disc change at C5-C6 with broad-based disc osteophyte complex with mass effect on the anterior thecal sac. This comes in close contact with the anterior cord which is poorly visualized. 2. Mild anterior spondylolisthesis of C4 on C5 approximately 2 mm. There is mild retrolisthesis of C5 on C6. 3. Mild disc osteophyte complex at C3-4. 4. Narrowing of the left neural foramina at C2-3 and C3-4 levels as well as narrowing of the right neural foramina at C5-6. Neck Ultrasound 08/15/18 00:00 CONCLUSION: 1. Unremarkable study. Chest X-Ray 08/16/18 07:55 CONCLUSION: Satisfactory support line and tube positioning. Slight worsening in aeration, particularly at the left base. Physical Exam: PHYSICAL EXAMINATION: GENERAL: Awakens easily. No distress. HEENT: Extraocular movements grossly intact. Pupils reactive to light. No icterus. Oropharynx intubated. NECK: Obese, Supple without adenopathy. LUNGS: Coarse bilateral rhonchi. HEART: Regular S1, S2. No murmurs heard. ABDOMEN: Bowel sounds present. Soft, no tenderness appreciated. EXTREMITIES: No clubbing, cyanosis or edema. Ecchymotic lesions at the upper extremities. SKIN: No diffuse rash. NEUROLOGIC: No gross focal finding. Moves all extremities. Assessment and Plan - Plan IMPRESSION: 1. Bacteremia due to gram-positive cocci; 4/4 bottles positive, non-methicillin staph aureus. Culture still positive. Urine culture also had staph aureus. Possible infection originated from the urine system. questionable etiology. 2D echocardiogram suggest possible vegetation on mitral valve. This makes possibility of endocarditis likely Particularly with continued positive blood culture. 2. Idiopathic thrombocytopenic purpura status post treatment. 3. Leukocytosis. 4. History of prostate cancer. 5. Acute renal insufficiency. 6. Acute respiratory failure. Intubated. Patient is critically ill. RECOMMENDATIONS: 1. Stop vancomycin. 2. Begin Cefazolin. 3. Repeat the blood cultures. 4. Monitor clinical status 5. Monitor the white blood cell count. Given the critical illness with intubation, we will need to hold off on YANETH until the patient becomes more stable. Discussed with at bedside.
--- NOTE | 2018-08-16 11:48 | P.DIET ---
Nutritional Evaluation Type of nutrition evaluation: initial Nutrition consult regarding: Tube Feeding Screening comments: Wyatt: transferred to [facility] d/t acute AMS and worsening hypoxia. Objective - Diagnosis GI Bleed, Severe Thrombocytopenia - Objective % IBW: 103 (IBW = 178#) Body Weight Used for Calculations: Actual (83.6 kg) Energy Needs - Lower Range (kCal/kg): 25 Energy Needs - Upper Range (kCal/kg): 30 Lower Limit kCal/kg (kCals): 2,090 Upper Limit kCal/kg (kCals): 2,508 Lower Limit Protein Factor (Grams per Kg): 1.0 Upper Limit Protein Factor (Grams per Kg): 1.5 Lower Protein Needs (Protein): 84 Upper Protein Needs (Protein): 125 Dietitian Reviewed in Medical Record: Curent medications, Intake & Output, Labs , Medical history, Tube feeding Diet Order: NPO Objective Comments: Labs: glu 203, HgA1c 6.8, ammonia 44 Assessment Assessment: Pt is at high nutrition risk 2' to his need for TFing. To meet needs with Glucerna 1.5, recommend goal rate of 60 mls/hr to provide 2160 kcals, 119 gms protein and 1093 mls of free water. Some additional kcals may be provided when propofol is running (1.1 kcal/ml). Recommendations: Glucerna 1.5 @ 60 mls/hr goal Dietitian to Monitor: Lab values, Intake & Output, Tube feeding tolerance, Weight change, Medical course
--- NOTE | 2018-08-16 12:03 | US ---
EXAM DATE: 08/16/2018 12:00 AM EDT AGE/SEX: 83 years / Male INDICATIONS: Elevated labs. CLINICAL DATA: This is the patient's initial encounter. Patient reports that signs and symptoms have been present for 1 day and indicates a pain score of Nonresponsive. MEDICAL/SURGICAL HISTORY: Diabetes. Psoriasis. Tibia/fibula fracture. None. COMPARISON: [facility] – [place], [place] ABDOMEN & PELVIS W/O CONTRAST, 08/02/2018. . MEASUREMENTS: Right Kidney:__12.4 x 5.1 x 5.8 cm Left Kidney:__11.7 x 6.1 x 6.6 cm FINDINGS: Limited by bowel gas. Right Kidney: 4.9 x 4.3 x 4.6 cm hypoechoic avascular cyst in the inferior pole. This was not noted o n prior CT exam. No hydronephrosis with mild increased renal echogenicity. Left Kidney: 3.8 x 4.4 x 3.8 cm hypoechoic avascular cyst in the inferior pole. This is consistent wi th findings on CT. This was noted to have septations and calcifications on CT exam which are not as w ell demonstrated on ultrasound. Bladder: Within normal limits given the degree of distension. Other: None. CONCLUSION: 1. Limited examination secondary to bowel gas. 2. No evidence for obstructive uropathy. 3. Mildly echogenic kidneys consistent with medical renal disease. 4. 4.9 cm possible cyst in the inferior pole the right kidney which was not noted on recent CT exam and not demonstrated on sagittal images. Uncertain if this is artifactual. 5. Redemonstration of complex 4.4 cm cyst in the inferior pole of the left kidney. Electronically signed by: Gabino Solorzano MD 08/16/2018 12:02 PM EDT
--- NOTE | 2018-08-16 12:08 | CT ---
EXAM DATE: 08/16/2018 10:49 AM EDT AGE/SEX: 83 years / Male INDICATIONS: Altered mental status. CLINICAL DATA: This is the patient's initial encounter. Patient reports that signs and symptoms have been present for 1 day and indicates a pain score of Nonresponsive. MEDICAL/SURGICAL HISTORY: Diabetes. Carcinoma, prostatic. Non-responsive. RADIATION DOSE: 37.62 CTDI (mGy) [place]: [facility] [place]. . TECHNIQUE: CT of the head without contrast. Using automated exposure control and adjustment of the mA and/or kV according to patient size, radiation dose was kept as low as reasonably achievable to ob tain optimal diagnostic quality images. DICOM format image data is available electronically for revi ew and comparison. FINDINGS: Cerebrum: Moderate diffuse cerebral atrophy. The ventricles are normal for degree of atrophy. No julian dence of midline shift, mass lesion, hemorrhage or acute infarction. No extraaxial fluid collections are seen. Posterior Fossa: The cerebellum and brainstem are intact. The 4th ventricle is midline. The cerebe llopontine angle is unremarkable. Extracranial: The visualized portion of the orbits is intact. Skull: The calvaria is intact. No evidence of skull fracture. CONCLUSION: 1. Senescent changes without acute intracranial abnormality. . Electronically signed by: Gabino Solorzano MD 08/16/2018 12:06 PM EDT
--- NOTE | 2018-08-16 12:18 | P.CONPAL ---
Consult Service: Palliative Care Requesting Physician: Bola Alvarado Reason for Consult: a. To assist with evaluation and management of symptoms including: Dyspnea, pain b. To assist medical decision maker(s) with: better understanding of current medical conditions; weighing benefits/burdens of medical treatment options; making medical treatment decisions. Primary Care Provider: UNKNOWN History of Present Illness History of Present Illness: Mr. Butterfield is a 89-year-old patient with a medical history of diabetes mellitus, psoriasis, prostate cancer and left tibia/fibula fracture. Patient was brought to the emergency room by [facility] on 08/02/18 with complaints of worsening bright red blood per rectum with watery stool for a few days. Prior to arrival patient was hypotensive with a blood pressure of 80/50 and he received 1 L of fluids with improvement of blood pressure. ER course: * Vital signs: Pulse 85, respirations 18, BP 120/59, O2 saturation 96%. * EKG sinus rhythm with first-degree AV block intraventricular conduction delay. * Laboratory workup revealed WBC 5.7, hemoglobin 7.1, hematocrit 21.9, platelet count 7L, PT 12.1, INR 1.2, APTT 24.3, fibrinogen 194, d-dimer 0.74, sodium 138 , potassium 4.4, BUN/creatinine 22/1.33, random glucose 273, calcium 8.1, total bilirubin 0.5, AST 21, ALT 19, total protein 6.0, albumin 2.7 * Head CT revealed no acute intracranial abnormality. * Abdomen pelvis CT revealed circumferential wall thickening of the rectum likely indicating a proctitis and severe atherosclerotic disease, cholelithiasis , stable complex cystic lesion of the left kidney measuring 6.5 cm and cirrhotic liver. * Rectal exam revealed gross blood * 6 pack platelets and 2 RBC transfused * Patient started on a Protonix and octreotide drips * 25 g 25% albumin administered * Patient admitted for further evaluation under critical care management physicians. GI Dr. Doherty consulted on 08/02/18 for evaluation and management of patient with GI bleeding and severe thrombocytopenia, recommended continuation of supportive care with blood transfusions, hydrocortisone suppository and enema and colonoscopy when platelets improve. Oncology Dr. Gracia consulted on for evaluation of patient with severe thrombocytopenia. Patient underwent immunoglobulin therapy on 08/04/18. 2D echocardiogram on 08/03/2018 revealed mild mitral valve regurgitation and trace tricuspid valve regurgitation with no aortic valve stenosis or regurgitation. Cardiology Dr. Nation consulted on for evaluation and management of patient with cardiomyopathy, recommended medically treating patient for now. Due to anemia and severe thrombocytopenia, ischemic cause could not be ruled out for cardiomyopathy of unknown cause and patient is currently not a candidate for anticoagulation due to thrombocytopenia. Patient complaining of neck pain. 08/12/18 CT cervical spine revealed degenerative disc changes at C5-C6 with broad-based disc osteophyte complex with mass-effect on anterior thecal sac. Mild anterior spondylolisthesis of C4 on C5 approximately 2 mm and mild retrolisthesis of C5 on C6. Mild disc osteophyte complex at C3-4 and narrowing of the left neural foramina at C2 days 3 and C3-4 levels is well is narrowing of the right neural foramina at C5-6. Blood cultures collected on 08/13/18 positive for gram- positive cocci in all [address] Manzanares consulted on 08/14/18 for evaluation and management of patient with gram-positive cocci in blood. Echocardiogram on 08/14/18 revealed ejection fraction 30-35% with severe LV dysfunction and questionable mitral valve lesion of posterior leaflet. Speech therapy, Occupational Therapy and physical therapy consulted. Urine collected on 08/15/18 + for Staphylococcus aureus and blood cultures collected on 08/15/18 + for gram-positive cocci. Laboratory workup today 08/16/18 revealed WBC 14.8, hemoglobin 9.3, hematocrit 28.9, platelet count 27, potassium 3.9, BUN/creatinine 99/1.62, random glucose 203, lactic acid 5.9, calcium 7.7, phosphorus 5.0, magnesium 3.1, total bilirubin 1.3, ammonia 44, troponin 0 0.16, total protein 6.7, albumin 1.7, free T4 1.55, TSH pending, total T3 pending. Chest x-ray on 08/16/18 revealed lower left consolidation. Renatet called on 08/16/18 for worsening lethargy, tachycardic with a heart rate of 134 bpm and hypotension with blood pressure of 80/43. Patient was minimally responsive and was noted to have crackles to bilateral lower lungs. 500 mL's bolus administered. Patient was transferred to intensive care unit. Critical care management physician Dr. Alvarado consulted. Patient was orotracheally intubated for acute respiratory failure and was started on norepinephrine infusion to maintain a map greater than 65. Clinical course complicated with thrombocytopenia, bacteremia, dysphagia and acute respiratory failure. Palliative care consulted to assist with symptom management and establishment of goals of medical treatment. Patient seen and examined in his room on the surgical intensive care unit. Patient is intubated, with minimal sedation. Patient is currently on propofol infusion at 5 mcg/kg/min, Guicho-Synephrine at 600 mcg/min, Levophed infusing at 30 mcg/min, and amiodarone infusion. Patient is hypotensive with systolic blood pressure in the low 80s-90s. Patient is spontaneously moving all 4 extremities and appears to be nodding and shaking his head appropriately to questions been asked. Dr. Alvarado at bedside, decreased Guicho-Synephrine to 300 mcg/ min and increased Levophed infusion to 50 mcg/min, propofol discontinued- systolic blood pressure improved to 120s. Plan to start patient on vasopressin infusion. Brief telephone conversation with patient's . Updated her on patient's current medical status. Notified patient spouse of how critical patient is at this time. Attempted to address CODE STATUS and patient's states that she is not ready to make any decisions without calling patient's sons who are in [place] first. Patient spouse sounds overwhelmed at this time. Provided her with palliative care contact information. Offered to provide medical update to patient's sons. Patient spouse would like to speak to them first. Patient's returned to the hospital. Meeting with patient's on [facility], partly at bedside and outside [id number] room. Reintroduced palliative care and its role in symptom management and establishment of goals of medical treatment. Obtained psychosocial, past medical history and events leading to this hospitalization. According to patient's , patient has a [employer] but she is not aware where those papers are at this time. She states that she is the designated DPOA. Updated her on patient's current medical status, treatment rendered and his requirement for pressor support. Patient`s spouse states that she knows he would not want to live his life on machines. Addressed CODE STATUS, discussed CPR benefits, limitations and complications given ongoing multiple comorbidities. Patient spouse elected DO NOT RESUSCITATE. Provided patient's with anticipatory guidance in regards to compassionate withdrawal from care if patient continues to deteriorate. Patient's would like to notify patient's children prior to make further decisions. Empathetic listening provided as patient's spouse tearfully described how she had to pass through a home to make arrangements after she saw patient this morning post intubation. Per patient's spouse request, telephone conversation with patient's son Salo. Updated him on patient's current critical medical status and complications patient has faced during hospitalization as well as treatments that have been rendered up to date. Patient's son, Salo also expressed that his father would not like to be kept on life support and stated that he would also agree with making patient DNR. Patient's son would also notify his siblings of patient`s critical condition. At this time goals remain aggressive short of no code. Patient`s spouse would like to make sure all patient`s adult children are notified of his critical status prior to making any further decisions. Palliative care will continue to follow with patient and assist with symptom management and further discussion of goals of medical treatment. Case discussed with Dr. Alvarado and bedside RN. . Function/Cognitive Trajectory: Patient spouse reported a fall at home prior to hospitalization. Patient has a history of prostate cancer and has previously received 4-5 treatments of radiation that he completed in July 2017 and has been on Firmagon from his urologist/oncologist. Patient's last lab work results with his primary care physician Dr. Mace, patient was referred to other 3 physicians and he did not go. Prior to this hospitalization patient was independent with activities of daily living though patient's states that he has been increasingly getting weaker in the past couple of weeks. Review of Systems Constitutional: Reports weakness, Denies fever(s), Denies weight loss Eyes: Denies discharge, Denies irritation Ears, Nose, Mouth, and Throat: Denies abnormal hearing, Denies dry mouth, Denies tongue swelling Cardiovascular: Reports generalized swelling, Reports irregular heart rhythm, Reports shortness of breath Respiratory: Denies cough, Denies wheezing Gastrointestinal: Reports bright, red blood in stools, Reports incontinent of stools, Reports loose stools, Denies abdominal pain, Denies nausea, Denies vomiting Genitourinary: Denies blood in urine Skin/Breast: Denies sores, Denies unusual bruising Psychiatric: Reports confusion Endocrine: Denies increased urination Review of systems obtained from family, EMR and clinical observation. . [facility] - History History Provided By: Medical Record - Medical History Medical History: Medical History (Last Reviewed 08/15/18 @ 15:58 by Samantha Jerez) Diabetes mellitus Psoriasis Tibia/fibula fracture - Tobacco History Second Hand Smoke Exposure: No Smoking Status: Never smoker - Alcohol History How Often Do You Have a Drink Containing Alcohol: Never - Substance Use History Substance History: No History of Abuse - Travel History Recent Travel in the [place] Within the Last 8 Weeks: No - Immunization History Tetanus Immunization: >5 Years Medications and Allergies Active Medications: Active Medications Acetaminophen (Tylenol) 650 mg PO Q6H PRN PRN Reason: PAIN 1-2 OR FEVER >101F Last Admin: 08/10/18 03:05 Dose: 650 mg Al Hydroxide/Mg Hydroxide (Milk Of Magnalbert Liq) 30 ml PO Q12H PRN PRN Reason: Mild Constipation Albuterol (Albuterol Neb (Prn)) 2.5 mg NEB Q2HR NEB PRN PRN Reason: DYSPNEA Last Admin: 08/13/18 05:01 Dose: 2.5 mg Albuterol (Duoneb Neb (Katherine)) 1 ampul NEB Q4HR NEB KATHERINE Last Admin: 08/16/18 09:52 Dose: Not Given Artificial Tears (Refresh Tears 0.5% Opth Drops) 1 drop EACH EYE BID [facility] Last Admin: 08/16/18 08:57 Dose: 1 drop Chlorhexidine Gluconate (Peridex 0.12% Oral Kit) 15 ml OROPHARYNG BID@0800, 2000 [facility] Last Admin: 08/16/18 08:57 Dose: 15 ml Dextrose (D50w Vial) 50 ml IV.PUSH UNSCH PRN PRN Reason: PER HYPOGLYCEMIA PROTOCOL Glucagon (Glucagon Inj) 1 mg OTHER PRN PRN PRN Reason: for Hypoglycemia Protocol Hydrocortisone Sodium Succinate (Solucortef Inj) 100 mg IV.PUSH Q8HR KATHERINE Magnesium Sulfate 4 gm/ Sodium (Chloride) 100 mls @ 50 mls/hr IV.SIG UNSCH PRN PRN Reason: For Magnesium 0.9 - 1.1 mg/dL Magnesium Sulfate 2 gm/ Sodium (Chloride) 100 mls @ 50 mls/hr IV.SIG UNSCH PRN PRN Reason: For Magnesium 1.2 - 1.6 mg/dL Potassium Chloride (Kcl 40 Meq Premix Inj) 40 meq in 100 mls @ 25 mls/hr IV.SIG Q2H PRN PRN Reason: For Potassium 2.8 - 3.2 mEq/L Potassium Chloride (Kcl 20 Meq Premix Inj) 20 meq in 100 mls @ 50 mls/hr IV.SIG Q2H PRN PRN Reason: For Potassium 3.3 - 3.5 mEq/L Potassium Chloride (Kcl 40 Meq Premix Inj) 40 meq in 100 mls @ 25 mls/hr IV.SIG UNSCH PRN PRN Reason: For Potassium 3.3 - 3.5 mEq/L Potassium Chloride (Kcl 20 Meq Premix Inj) 20 meq in 100 mls @ 50 mls/hr IV.SIG Q2H PRN PRN Reason: For Potassium 2.8 - 3.2 mEq/L Last Infusion: 08/05/18 17:14 Dose: Infused Potassium Phosphate 30 mmol/ (Sodium Chloride) 260 mls @ 42 mls/hr IV.SIG UNSCH PRN PRN Reason: SEE LABEL COMMENTS Last Infusion: 08/07/18 11:42 Dose: Infused Sodium Phosphate 30 mmol/ (Sodium Chloride) 260 mls @ 42 mls/hr IV.SIG UNSCH PRN PRN Reason: For Phosphorus < 2.5 mg/dL Sodium Chloride (Ns Inj) 1,000 mls @ 0 mls/hr IV.SIG BOLUS KATHERINE Last Infusion: 08/14/18 19:00 Dose: Infused Sodium Chloride (Ns Inj) 500 mls @ 0 mls/hr IV.SIG BOLUS KATHERINE Norepinephrine Bitartrate 16 (mg/ Sodium Chloride) 250 mls @ 1.87 mls/hr IV.CONT TITRATE PRN; Protocol PRN Reason: See Protocol Propofol (Diprivan 1000 Mg/100 Ml Inj) 1,000 mg in 100 mls @ 2.508 mls/hr IV.CONT TITRATE PRN; Protocol PRN Reason: Per Protocol Last Titration: 08/16/18 10:13 Dose: 0 mcg/kg/min, 0 mls/hr Fentanyl (Fentanyl 10 Mcg/Ml Premix Drip) 2,500 mcg in 250 mls @ 5 mls/hr IV.SIG TITRATE PRN; Protocol PRN Reason: Per Protocol Cefazolin Sodium 1,000 mg/ (Sodium Chloride) 100 mls @ 200 mls/hr IV.SIG Q8H KATHERINE Last Infusion: 08/16/18 10:13 Dose: Infused Phenylephrine HCl 160 mg/ (Sodium Chloride) 500 mls @ 7.5 mls/hr IV.CONT TITRATE PRN; Protocol PRN Reason: See protol Insulin Aspart (Novolog Insulin Correctional Sugar Inj) 0 unit SQ Q4HR [facility]; Protocol Lactulose (Lactulose Liq) 30 ml PO DAILY PRN PRN Reason: SEVERE CONSITIPATION Magnesium Oxide (Mag-Ox) 800 mg PO UNSCH PRN PRN Reason: For Magnesium 1.2 - 1.6 mg/dL Methimazole (Tapazole) 5 mg PO BID [facility] Miscellaneous Information ([facility] Ordered Lab Info) 0 each OTHER ONCE ONE Stop: 08/18/18 10:46 Miscellaneous Medication () 1 each OROPHARYNG 0000,0400,1200,1600 [facility] Multi-Ingredient Mouthwash/Gargle (Magic Mouthwash Adult Liq) 10 ml SWISH-SWAL QID [facility] Last Admin: 08/16/18 08:57 Dose: Not Given Naloxone HCl (Narcan Inj) 0.4 mg IV.PUSH UNSCH PRN PRN Reason: SEE LABEL COMMENTS Ondansetron HCl (Zofran Inj) 4 mg IV.PUSH Q6H PRN PRN Reason: NAUSEA OR VOMITING Pantoprazole Sodium (Protonix Inj) 40 mg IV.PUSH BID [facility] Last Admin: 08/16/18 09:36 Dose: 40 mg Polyethylene Glycol (Miralax) 17 gm PO DAILY [facility] Last Admin: 08/16/18 08:57 Dose: Not Given Potassium Bicarb/Potassium Chloride (K-Lyte Cl Eff) 50 meq PO UNSCH PRN PRN Reason: For Potassium 3.3 - 3.5 mEq/L Last Admin: 08/07/18 22:30 Dose: 50 meq Potassium Phosphate (K-Phos Original) 2,000 mg PO Q4H PRN PRN Reason: Phosphorus Less Than 2.5 mg/dL Last Admin: 08/06/18 15:48 Dose: 2,000 mg Potassium Phosphate (K-Phos Original) 2,000 mg PO UNSCH PRN PRN Reason: SEE LABEL COMMENTS Romiplostim (Nplate Inj) 89 mcg SQ Q7D [facility] Last Admin: 08/16/18 10:00 Dose: Not Given Senna/Docusate Sodium (Lisa-Colace) 1 tab PO BID [facility] Last Admin: 08/16/18 08:57 Dose: Not Given Sennosides (Senokot) 17.2 mg PO Q12H PRN PRN Reason: Moderate Constipation Sodium Chloride (Ns Flush) 2 ml IV.FLUSH BID [facility] Last Admin: 08/16/18 08:57 Dose: 2 ml Sodium Chloride (Ns Flush) 2 ml IV.FLUSH PRN PRN PRN Reason: FLUSH AFTER USING IV ACCESS Last Admin: 08/13/18 10:16 Dose: 2 ml Tamsulosin HCl (Flomax) 0.4 mg PO DAILY [facility] Last Admin: 08/14/18 13:15 Dose: Not Given Terbutaline Sulfate (Brethine Inj) 1 mg SQ UNSCH PRN PRN Reason: For Extravasation Terbutaline Sulfate (Brethine Inj) 1 mg SQ UNSCH PRN PRN Reason: For Extravasation Allergies Allergy/AdvReac Type Severity Reaction Status Date / Time No Known Allergies Allergy Verified 08/02/18 03:15 Home Medications Medication Instructions Recorded Confirmed Type atenolol 25 mg PO DAILY 08/02/18 08/02/18 History chlorpheniramine maleate 4 mg PO Q4H 08/02/18 08/02/18 History [Chlor-Trimeton] metformin 1,000 mg PO BID 08/02/18 08/02/18 History pantoprazole [Protonix] 40 mg PO DAILY 08/02/18 08/02/18 History pioglitazone [Actos] 45 mg PO DAILY 08/02/18 08/02/18 History sitagliptin [Januvia] 100 mg PO DAILY 08/02/18 08/02/18 History tamsulosin 0.4 mg PO DAILY 08/02/18 08/02/18 History Advance Directives Living Will: Unknown Healthcare Surrogate: Yes (DURABLE [employer]) Health Care Surrogate Name and Number: HCP: Spouse- Linda Butterfield-[phone] Power of Collections Representative: Yes (Copy not made available.) Family/friends goals: Patient has been made a DNR. Patient spouse would like to notify all 4 of patient's adult children faced before making any further decisions at this time. Ethical and Legal Issues: None identified at this time. . Physical Exam Vital Signs: Vital Signs - 24 hr 08/15/18 12:00 08/15/18 16:00 08/15/18 16:42 Temperature Pulse Rate 92 H 90 91 H Respiratory Rate 18 20 20 Blood Pressure 106/62 Pulse Oximetry 96 08/15/18 20:00 08/15/18 21:38 08/15/18 23:29 Temperature 98.6 F Pulse Rate 98 H 98 H Respiratory Rate 20 22 Blood Pressure 121/58 L Pulse Oximetry 94 L 95 08/16/18 00:00 08/16/18 04:00 08/16/18 04:11 Temperature 97.4 F L 98.5 F Pulse Rate 87 63 Respiratory Rate 18 22 Blood Pressure 100/50 L 106/63 Pulse Oximetry 93 L 98 95 08/16/18 04:12 08/16/18 05:00 08/16/18 06:05 Temperature Pulse Rate 89 133 H 63 Respiratory Rate 22 20 Blood Pressure 80/44 L 91/58 L Pulse Oximetry 95 08/16/18 07:00 08/16/18 08:00 08/16/18 09:25 Temperature Pulse Rate 135 H 143 H Respiratory Rate 16 23 Blood Pressure Pulse Oximetry 97 100 I&O: Intake & Output 08/14/18 08/15/18 08/16/18 08/17/18 06:59 06:59 06:59 06:59 Intake Total 460 / 460 3150 / 3150 622.5 / 622.5 605 / 605 Output Total 850 / 850 1450 / 1450 700 / 700 Balance -390 / -390 1700 / 1700 -77.5 / -77.5 605 / 605 Weight 83.4 kg 83.8 kg 83.6 kg Physical Exam: CONSTITUTIONAL/GENERAL: This is an adequately nourished patient, in no apparent distress. TUBES/LINES/DRAINS: Orotracheal tube, OG tube, central line, femoral A-line, SKIN: Pale. No jaundice, rashes, or lesions. Ecchymoses on upper extremities. No wounds seen anteriorly. Skin temperature appropriate. Not diaphoretic. HEAD: Atraumatic. Normocephalic. EYES: Pupils round, reactive to light. No scleral icterus. No injection or drainage. Fundi not examined. ENT: Hearing grossly normal. Nose without bleeding or purulent drainage. Orotracheal tube & orogastric tube. Moist oral mucosa NECK: Trachea midline. Supple, nontender. CARDIOVASCULAR: Irregular rate and rhythm without murmurs, gallops, or rubs. No JVD. Peripheral pulses symmetric. RESPIRATORY/CHEST: Symmetric, unlabored respirations. Clear to auscultation. Breath sounds equal bilaterally. No wheezes, rales, or rhonchi. GASTROINTESTINAL: Abdomen soft, non-tender, nondistended. No guarding. No bowel sounds present. GENITOURINARY: Without palpable bladder distension. Condom catheter with no urine output for the past + 7 hours MUSCULOSKELETAL: Extremities without clubbing, cyanosis, or edema. No joint tenderness or effusion noted. No calf tenderness. No mottling or clubbing. LYMPHATICS: Did not assess NEUROLOGICAL: Intubated and lightly sedated. Spontaneously moving all 4 extremities. Appears to be responding appropriately by nodding head and shaking head. PSYCHIATRIC: Intubated. Currently calm. Diagnostic Tests Laboratory: Laboratory Results - last 72 hr 08/13/18 08/13/18 08/13/18 13:25 18:35 20:21 WBC RBC Hgb Hct MCV MCH MCHC RDW Plt Count MPV Prelim Diff (Auto) Neut % (Auto) Lymph % (Auto) Bulloch % (Auto) Eos % (Auto) Baso % (Auto) Neut # (Auto) Lymph # (Auto) Bulloch # (Auto) Eos # (Auto) Baso # (Auto) WBC Differential Seg Neuts % (Manual) Band Neuts % (Manual) Monocytes % (Manual) Abs Neuts (Manual) Nucleated RBCs/100 WBC Differential Comment Toxic Granulation Toxic Vacuolation Platelet Estimate Platelet Morphology Puncture Site Patient Temperature O2 Saturation ABG pH ABG pCO2 ABG pO2 ABG HCO3 ABG O2 Content ABG Base Excess ABG Methemoglobin Abhijeet Test Hemoglobin Carboxyhemoglobin O2 Delivery Device Vent Setting Inspired O2 Critical Value Sodium Potassium Chloride Carbon Dioxide Anion Gap BUN Creatinine Estimated GFR POC Glucose 130 H 108 107 Random Glucose Lactic Acid Calcium Phosphorus Magnesium Iron TIBC % Saturation Ferritin Total Bilirubin Direct Bilirubin Indirect Bilirubin AST ALT Alkaline Phosphatase Ammonia Total Creatine Kinase Troponin I B-Natriuretic Peptide Total Protein Albumin Amylase Lipase TSH Free T4 Urine Color Urine Clarity Urine pH Ur Specific [place] Urine Protein Urine Glucose (UA) Urine Ketones Urine Occult Blood Urine Nitrate Urine Bilirubin Urine Urobilinogen Ur Leukocyte Esterase Urine RBC Urine WBC Urine WBC Clumps Ur Squamous Epith Cells Urine Bacteria Urine Mucus Micro UA Comment Ur Microscopic Review Urine Culture Comments Random Vancomycin 08/14/18 08/14/18 08/14/18 07:07 07:07 09:10 WBC 19.2 H RBC 3.33 L Hgb 9.4 L Hct 28.7 L MCV 86.2 MCH 28.2 MCHC 32.7 RDW 17.1 Plt Count 22 L MPV 12.1 H Prelim Diff (Auto) Slide review pending Neut % (Auto) 94.3 H Lymph % (Auto) 2.0 L Bulloch % (Auto) 3.2 Eos % (Auto) 0.0 Baso % (Auto) 0.5 Neut # (Auto) 18.1 H Lymph # (Auto) 0.4 L Bulloch # (Auto) 0.6 Eos # (Auto) 0.0 Baso # (Auto) 0.1 WBC Differential Manual diff final Seg Neuts % (Manual) 85 H Band Neuts % (Manual) 13 H Monocytes % (Manual) 2 Abs Neuts (Manual) 18.8 H Nucleated RBCs/100 WBC Differential Comment . Toxic Granulation 1+ H Toxic Vacuolation Present H Platelet Estimate Low L Platelet Morphology Normal Puncture Site Patient Temperature O2 Saturation ABG pH ABG pCO2 ABG pO2 ABG HCO3 ABG O2 Content ABG Base Excess ABG Methemoglobin Abhijeet Test Hemoglobin Carboxyhemoglobin O2 Delivery Device Vent Setting Inspired O2 Critical Value Sodium 137 Potassium 3.6 Chloride 98 Carbon Dioxide 23.1 Anion Gap 16 H BUN 58 H Creatinine 1.36 H Estimated GFR 50 L POC Glucose 122 H Random Glucose 101 Lactic Acid Calcium 8.4 L Phosphorus 4.5 Magnesium 2.3 Iron TIBC % Saturation Ferritin Total Bilirubin Direct Bilirubin Indirect Bilirubin AST ALT Alkaline Phosphatase Ammonia Total Creatine Kinase Troponin I B-Natriuretic Peptide Total Protein Albumin 1.9 L Amylase Lipase TSH Free T4 Urine Color Urine Clarity Urine pH Ur Specific [place] Urine Protein Urine Glucose (UA) Urine Ketones Urine Occult Blood Urine Nitrate Urine Bilirubin Urine Urobilinogen Ur Leukocyte Esterase Urine RBC Urine WBC Urine WBC Clumps Ur Squamous Epith Cells Urine Bacteria Urine Mucus Micro UA Comment Ur Microscopic Review Urine Culture Comments Random Vancomycin 08/14/18 08/14/18 08/14/18 12:13 14:03 14:03 WBC RBC Hgb Hct MCV MCH MCHC RDW Plt Count MPV Prelim Diff (Auto) Neut % (Auto) Lymph % (Auto) Bulloch % (Auto) Eos % (Auto) Baso % (Auto) Neut # (Auto) Lymph # (Auto) Bulloch # (Auto) Eos # (Auto) Baso # (Auto) WBC Differential Seg Neuts % (Manual) Band Neuts % (Manual) Monocytes % (Manual) Abs Neuts (Manual) Nucleated RBCs/100 WBC Differential Comment Toxic Granulation Toxic Vacuolation Platelet Estimate Platelet Morphology Puncture Site Patient Temperature O2 Saturation ABG pH ABG pCO2 ABG pO2 ABG HCO3 ABG O2 Content ABG Base Excess ABG Methemoglobin Abhijeet Test Hemoglobin Carboxyhemoglobin O2 Delivery Device Vent Setting Inspired O2 Critical Value Sodium Potassium Chloride Carbon Dioxide Anion Gap BUN Creatinine Estimated GFR POC Glucose 115 H Random Glucose Lactic Acid 7.0 H* Calcium Phosphorus Magnesium Iron TIBC % Saturation Ferritin Total Bilirubin Direct Bilirubin Indirect Bilirubin AST ALT Alkaline Phosphatase Ammonia Total Creatine Kinase Troponin I B-Natriuretic Peptide 376 H Total Protein Albumin Amylase Lipase TSH Free T4 Urine Color Urine Clarity Urine pH Ur Specific [place] Urine Protein Urine Glucose (UA) Urine Ketones Urine Occult Blood Urine Nitrate Urine Bilirubin Urine Urobilinogen Ur Leukocyte Esterase Urine RBC Urine WBC Urine WBC Clumps Ur Squamous Epith Cells Urine Bacteria Urine Mucus Micro UA Comment Ur Microscopic Review Urine Culture Comments Random Vancomycin 08/14/18 08/14/18 08/14/18 16:10 20:02 21:03 WBC RBC Hgb Hct MCV MCH MCHC RDW Plt Count MPV Prelim Diff (Auto) Neut % (Auto) Lymph % (Auto) [place] % (Auto) Eos % (Auto) Baso % (Auto) Neut # (Auto) Lymph # (Auto) [place] # (Auto) Eos # (Auto) Baso # (Auto) WBC Differential Seg Neuts % (Manual) Band Neuts % (Manual) Monocytes % (Manual) Abs Neuts (Manual) Nucleated RBCs/100 WBC Differential Comment Toxic Granulation Toxic Vacuolation Platelet Estimate Platelet Morphology Puncture Site Patient Temperature O2 Saturation ABG pH ABG pCO2 ABG pO2 ABG HCO3 ABG O2 Content ABG Base Excess ABG Methemoglobin Abhijeet Test Hemoglobin Carboxyhemoglobin O2 Delivery Device Vent Setting Inspired O2 Critical Value Sodium Potassium Chloride Carbon Dioxide Anion Gap BUN Creatinine Estimated GFR POC Glucose 150 H 212 H Random Glucose Lactic Acid 6.4 H* Calcium Phosphorus Magnesium Iron TIBC % Saturation Ferritin Total Bilirubin Direct Bilirubin Indirect Bilirubin AST ALT Alkaline Phosphatase Ammonia Total Creatine Kinase Troponin I B-Natriuretic Peptide Total Protein Albumin Amylase Lipase TSH Free T4 Urine Color Urine Clarity Urine pH Ur Specific [place] Urine Protein Urine Glucose (UA) Urine Ketones Urine Occult Blood Urine Nitrate Urine Bilirubin Urine Urobilinogen Ur Leukocyte Esterase Urine RBC Urine WBC Urine WBC Clumps Ur Squamous Epith Cells Urine Bacteria Urine Mucus Micro UA Comment Ur Microscopic Review Urine Culture Comments Random Vancomycin 08/14/18 08/15/18 08/15/18 21:47 06:15 06:15 WBC 18.0 H RBC 3.35 L Hgb 9.4 L Hct 29.2 L MCV 87.2 MCH 28.1 MCHC 32.3 RDW 17.4 H Plt Count 27 L MPV 11.5 H Prelim Diff (Auto) Manual diff required Neut % (Auto) Lymph % (Auto) [place] % (Auto) Eos % (Auto) Baso % (Auto) Neut # (Auto) Lymph # (Auto) [place] # (Auto) Eos # (Auto) Baso # (Auto) WBC Differential Manual diff final Seg Neuts % (Manual) 95 H Band Neuts % (Manual) 3 Monocytes % (Manual) 2 Abs Neuts (Manual) 17.6 H Nucleated RBCs/100 WBC Differential Comment . Toxic Granulation 2+ H Toxic Vacuolation Present H Platelet Estimate Low L Platelet Morphology Enlarged H Puncture Site Patient Temperature O2 Saturation ABG pH ABG pCO2 ABG pO2 ABG HCO3 ABG O2 Content ABG Base Excess ABG Methemoglobin Abhijeet Test Hemoglobin Carboxyhemoglobin O2 Delivery Device Vent Setting Inspired O2 Critical Value Sodium 141 Potassium 3.7 Chloride 105 Carbon Dioxide 23.5 Anion Gap 13 BUN 79 H Creatinine 1.43 H Estimated GFR 47 L POC Glucose Random Glucose 225 H D Lactic Acid Calcium 7.8 L Phosphorus 4.2 Magnesium 2.5 Iron TIBC % Saturation Ferritin Total Bilirubin Direct Bilirubin Indirect Bilirubin AST ALT Alkaline Phosphatase Ammonia Total Creatine Kinase Troponin I B-Natriuretic Peptide Total Protein Albumin 1.8 L Amylase Lipase TSH Free T4 Urine Color Yellow Urine Clarity Hazy H Urine pH 6.0 Ur Specific [place] 1.012 Urine Protein Negative Urine Glucose (UA) 50 Urine Ketones Negative Urine Occult Blood Moderate H Urine Nitrate Negative Urine Bilirubin Negative Urine Urobilinogen Less than 2 Ur Leukocyte Esterase Large H Urine RBC 2 Urine WBC 48 H Urine WBC Clumps Rare H Ur Squamous Epith Cells <1 Urine Bacteria Occasional H Urine Mucus Few H Micro UA Comment Culture indicated Ur Microscopic Review Not Reportable Urine Culture Comments Culture indicated Random Vancomycin 10.8 1008/15/18 08/15/18 06:15 06:15 06:15 WBC RBC Hgb Hct MCV MCH MCHC RDW Plt Count MPV Prelim Diff (Auto) Neut % (Auto) Lymph % (Auto) [place] % (Auto) Eos % (Auto) Baso % (Auto) Neut # (Auto) Lymph # (Auto) [place] # (Auto) Eos # (Auto) Baso # (Auto) WBC Differential Seg Neuts % (Manual) Band Neuts % (Manual) Monocytes % (Manual) Abs Neuts (Manual) Nucleated RBCs/100 WBC Differential Comment Toxic Granulation Toxic Vacuolation Platelet Estimate Platelet Morphology Puncture Site Patient Temperature O2 Saturation ABG pH ABG pCO2 ABG pO2 ABG HCO3 ABG O2 Content ABG Base Excess ABG Methemoglobin Abhijeet Test Hemoglobin Carboxyhemoglobin O2 Delivery Device Vent Setting Inspired O2 Critical Value Sodium Potassium Chloride Carbon Dioxide Anion Gap BUN Creatinine Estimated GFR POC Glucose Random Glucose Lactic Acid 5.3 H* Calcium Phosphorus Magnesium Iron 15 L TIBC 232 L % Saturation 6.5 L Ferritin 131 Total Bilirubin Direct Bilirubin Indirect Bilirubin AST ALT Alkaline Phosphatase Ammonia Total Creatine Kinase Troponin I B-Natriuretic Peptide 303 H Total Protein Albumin Amylase Lipase TSH Free T4 Urine Color Urine Clarity Urine pH Ur Specific [place] Urine Protein Urine Glucose (UA) Urine Ketones Urine Occult Blood Urine Nitrate Urine Bilirubin Urine Urobilinogen Ur Leukocyte Esterase Urine RBC Urine WBC Urine WBC Clumps Ur Squamous Epith Cells Urine Bacteria Urine Mucus Micro UA Comment Ur Microscopic Review Urine Culture Comments Random Vancomycin 08/15/18 08/15/18 08/15/18 06:15 06:15 08:55 WBC RBC Hgb Hct MCV MCH MCHC RDW Plt Count MPV Prelim Diff (Auto) Neut % (Auto) Lymph % (Auto) [place] % (Auto) Eos % (Auto) Baso % (Auto) Neut # (Auto) Lymph # (Auto) [place] # (Auto) Eos # (Auto) Baso # (Auto) WBC Differential Seg Neuts % (Manual) Band Neuts % (Manual) Monocytes % (Manual) Abs Neuts (Manual) Nucleated RBCs/100 WBC Differential Comment Toxic Granulation Toxic Vacuolation Platelet Estimate Platelet Morphology Puncture Site Patient Temperature O2 Saturation ABG pH ABG pCO2 ABG pO2 ABG HCO3 ABG O2 Content ABG Base Excess ABG Methemoglobin Abhijeet Test Hemoglobin Carboxyhemoglobin O2 Delivery Device Vent Setting Inspired O2 Critical Value Sodium Potassium Chloride Carbon Dioxide Anion Gap BUN Creatinine Estimated GFR POC Glucose 240 H Random Glucose Lactic Acid Calcium Phosphorus Magnesium Iron TIBC % Saturation Ferritin Total Bilirubin Direct Bilirubin Indirect Bilirubin AST ALT Alkaline Phosphatase Ammonia Total Creatine Kinase Troponin I B-Natriuretic Peptide Total Protein Albumin Amylase 302 H Lipase TSH 0.023 L Free T4 Urine Color Urine Clarity Urine pH Ur Specific [place] Urine Protein Urine Glucose (UA) Urine Ketones Urine Occult Blood Urine Nitrate Urine Bilirubin Urine Urobilinogen Ur Leukocyte Esterase Urine RBC Urine WBC Urine WBC Clumps Ur Squamous Epith Cells Urine Bacteria Urine Mucus Micro UA Comment Ur Microscopic Review Urine Culture Comments Random Vancomycin 08/15/18 08/15/18 08/15/18 11:46 13:12 16:59 WBC RBC Hgb Hct MCV MCH MCHC RDW Plt Count MPV Prelim Diff (Auto) Neut % (Auto) Lymph % (Auto) [place] % (Auto) Eos % (Auto) Baso % (Auto) Neut # (Auto) Lymph # (Auto) [place] # (Auto) Eos # (Auto) Baso # (Auto) WBC Differential Seg Neuts % (Manual) Band Neuts % (Manual) Monocytes % (Manual) Abs Neuts (Manual) Nucleated RBCs/100 WBC Differential Comment Toxic Granulation Toxic Vacuolation Platelet Estimate Platelet Morphology Puncture Site Patient Temperature O2 Saturation ABG pH ABG pCO2 ABG pO2 ABG HCO3 ABG O2 Content ABG Base Excess ABG Methemoglobin Abhijeet Test Hemoglobin Carboxyhemoglobin O2 Delivery Device Vent Setting Inspired O2 Critical Value Sodium Potassium Chloride Carbon Dioxide Anion Gap BUN Creatinine Estimated GFR POC Glucose 250 H 190 H Random Glucose Lactic Acid 5.6 H* Calcium Phosphorus Magnesium Iron TIBC % Saturation Ferritin Total Bilirubin Direct Bilirubin Indirect Bilirubin AST ALT Alkaline Phosphatase Ammonia Total Creatine Kinase Troponin I B-Natriuretic Peptide Total Protein Albumin Amylase Lipase TSH Free T4 Urine Color Urine Clarity Urine pH Ur Specific [place] Urine Protein Urine Glucose (UA) Urine Ketones Urine Occult Blood Urine Nitrate Urine Bilirubin Urine Urobilinogen Ur Leukocyte Esterase Urine RBC Urine WBC Urine WBC Clumps Ur Squamous Epith Cells Urine Bacteria Urine Mucus Micro UA Comment Ur Microscopic Review Urine Culture Comments Random Vancomycin 08/15/18 08/16/18 08/16/18 19:57 01:15 05:37 WBC RBC Hgb Hct MCV MCH MCHC RDW Plt Count MPV Prelim Diff (Auto) Neut % (Auto) Lymph % (Auto) [place] % (Auto) Eos % (Auto) Baso % (Auto) Neut # (Auto) Lymph # (Auto) [place] # (Auto) Eos # (Auto) Baso # (Auto) WBC Differential Seg Neuts % (Manual) Band Neuts % (Manual) Monocytes % (Manual) Abs Neuts (Manual) Nucleated RBCs/100 WBC Differential Comment Toxic Granulation Toxic Vacuolation Platelet Estimate Platelet Morphology Puncture Site Right radial Patient Temperature 98.6 O2 Saturation 92 ABG pH 7.46 H ABG pCO2 31 L ABG pO2 77 ABG HCO3 21 L ABG O2 Content 12.1 ABG Base Excess -1.9 ABG Methemoglobin 1.8 Abhijeet Test Present Hemoglobin 9.3 L Carboxyhemoglobin 1.4 O2 Delivery Device Bipap Vent Setting 10ipap/5epap Inspired O2 50 Critical Value No Sodium Potassium Chloride Carbon Dioxide Anion Gap BUN Creatinine Estimated GFR POC Glucose 199 H 214 H Random Glucose Lactic Acid Calcium Phosphorus Magnesium Iron TIBC % Saturation Ferritin Total Bilirubin Direct Bilirubin Indirect Bilirubin AST ALT Alkaline Phosphatase Ammonia Total Creatine Kinase Troponin I B-Natriuretic Peptide Total Protein Albumin Amylase Lipase TSH Free T4 Urine Color Urine Clarity Urine pH Ur Specific [place] Urine Protein Urine Glucose (UA) Urine Ketones Urine Occult Blood Urine Nitrate Urine Bilirubin Urine Urobilinogen Ur Leukocyte Esterase Urine RBC Urine WBC Urine WBC Clumps Ur Squamous Epith Cells Urine Bacteria Urine Mucus Micro UA Comment Ur Microscopic Review Urine Culture Comments Random Vancomycin 08/16/18 08/16/18 08/16/18 05:39 06:00 06:00 WBC 14.8 H RBC 3.31 L Hgb 9.3 L Hct 28.9 L MCV 87.3 MCH 28.0 MCHC 32.1 RDW 17.6 H Plt Count 27 L MPV 13.6 H Prelim Diff (Auto) Slide review pending Neut % (Auto) 94.3 H Lymph % (Auto) 2.5 L [place] % (Auto) 3.1 Eos % (Auto) 0.0 Baso % (Auto) 0.1 Neut # (Auto) 13.9 H Lymph # (Auto) 0.4 L [place] # (Auto) 0.5 Eos # (Auto) 0.0 Baso # (Auto) 0.0 WBC Differential Manual diff final Seg Neuts % (Manual) 82 H Band Neuts % (Manual) 17 H Monocytes % (Manual) 1 Abs Neuts (Manual) 14.7 H Nucleated RBCs/100 WBC 1 H Differential Comment . Toxic Granulation 1+ H Toxic Vacuolation Platelet Estimate Low L Platelet Morphology Normal Puncture Site Right brachial Patient Temperature 98.6 O2 Saturation 95 ABG pH 7.46 H ABG pCO2 30 L ABG pO2 94 ABG HCO3 21 L ABG O2 Content 12.2 ABG Base Excess -2.2 L ABG Methemoglobin 1.6 Abhijeet Test Hemoglobin 9.0 L Carboxyhemoglobin 1.1 O2 Delivery Device Bipap Vent Setting Ipap 10/ epap 5 Inspired O2 50 Critical Value No Sodium 145 Potassium 3.9 Chloride 108 H Carbon Dioxide 23.5 Anion Gap 14 BUN 99 H Creatinine 1.62 H Estimated GFR 41 L POC Glucose Random Glucose 203 H Lactic Acid Calcium 7.7 L Phosphorus 5.0 H Magnesium 3.1 H D Iron TIBC % Saturation Ferritin Total Bilirubin Direct Bilirubin Indirect Bilirubin AST ALT Alkaline Phosphatase Ammonia Total Creatine Kinase Troponin I B-Natriuretic Peptide Total Protein Albumin 1.6 L Amylase Lipase TSH Free T4 1.55 H Urine Color Urine Clarity Urine pH Ur Specific [place] Urine Protein Urine Glucose (UA) Urine Ketones Urine Occult Blood Urine Nitrate Urine Bilirubin Urine Urobilinogen Ur Leukocyte Esterase Urine RBC Urine WBC Urine WBC Clumps Ur Squamous Epith Cells Urine Bacteria Urine Mucus Micro UA Comment Ur Microscopic Review Urine Culture Comments Random Vancomycin 08/16/18 08/16/18 08/16/18 06:00 08:14 09:10 WBC RBC Hgb Hct MCV MCH MCHC RDW Plt Count MPV Prelim Diff (Auto) Neut % (Auto) Lymph % (Auto) [place] % (Auto) Eos % (Auto) Baso % (Auto) Neut # (Auto) Lymph # (Auto) [place] # (Auto) Eos # (Auto) Baso # (Auto) WBC Differential Seg Neuts % (Manual) Band Neuts % (Manual) Monocytes % (Manual) Abs Neuts (Manual) Nucleated RBCs/100 WBC Differential Comment Toxic Granulation Toxic Vacuolation Platelet Estimate Platelet Morphology Puncture Site Art line Patient Temperature Not Reportable O2 Saturation 97 ABG pH 7.36 L ABG pCO2 40 ABG pO2 286 H ABG HCO3 22 ABG O2 Content 14.1 ABG Base Excess -2.8 L ABG Methemoglobin 1.4 Abhijeet Test Hemoglobin 9.8 L Carboxyhemoglobin 1.1 O2 Delivery Device Ventilator Vent Setting Prvc/ac Inspired O2 100 Critical Value No Sodium Potassium Chloride Carbon Dioxide Anion Gap BUN Creatinine Estimated GFR POC Glucose Random Glucose Lactic Acid 5.9 H* Calcium Phosphorus Magnesium Iron TIBC % Saturation Ferritin Total Bilirubin 1.3 H Direct Bilirubin 0.7 H Indirect Bilirubin 0.6 AST 29 ALT 36 Alkaline Phosphatase 89 Ammonia Total Creatine Kinase 244 Troponin I 0.16 H B-Natriuretic Peptide Total Protein 6.7 D Albumin 1.7 L Amylase 395 H Lipase 78 TSH Free T4 Urine Color Urine Clarity Urine pH Ur Specific [place] Urine Protein Urine Glucose (UA) Urine Ketones Urine Occult Blood Urine Nitrate Urine Bilirubin Urine Urobilinogen Ur Leukocyte Esterase Urine RBC Urine WBC Urine WBC Clumps Ur Squamous Epith Cells Urine Bacteria Urine Mucus Micro UA Comment Ur Microscopic Review Urine Culture Comments Random Vancomycin 08/16/18 09:10 WBC RBC Hgb Hct MCV MCH MCHC RDW Plt Count MPV Prelim Diff (Auto) Neut % (Auto) Lymph % (Auto) [place] % (Auto) Eos % (Auto) Baso % (Auto) Neut # (Auto) Lymph # (Auto) [place] # (Auto) Eos # (Auto) Baso # (Auto) WBC Differential Seg Neuts % (Manual) Band Neuts % (Manual) Monocytes % (Manual) Abs Neuts (Manual) Nucleated RBCs/100 WBC Differential Comment Toxic Granulation Toxic Vacuolation Platelet Estimate Platelet Morphology Puncture Site Patient Temperature O2 Saturation ABG pH ABG pCO2 ABG pO2 ABG HCO3 ABG O2 Content ABG Base Excess ABG Methemoglobin Abhijeet Test Hemoglobin Carboxyhemoglobin O2 Delivery Device Vent Setting Inspired O2 Critical Value Sodium Potassium Chloride Carbon Dioxide Anion Gap BUN Creatinine Estimated GFR POC Glucose Random Glucose Lactic Acid Calcium Phosphorus Magnesium Iron TIBC % Saturation Ferritin Total Bilirubin Direct Bilirubin Indirect Bilirubin AST ALT Alkaline Phosphatase Ammonia 44 H Total Creatine Kinase Troponin I B-Natriuretic Peptide Total Protein Albumin Amylase Lipase TSH Free T4 Urine Color Urine Clarity Urine pH Ur Specific [place] Urine Protein Urine Glucose (UA) Urine Ketones Urine Occult Blood Urine Nitrate Urine Bilirubin Urine Urobilinogen Ur Leukocyte Esterase Urine RBC Urine WBC Urine WBC Clumps Ur Squamous Epith Cells Urine Bacteria Urine Mucus Micro UA Comment Ur Microscopic Review Urine Culture Comments Random Vancomycin Result Diagrams: 08/16/18 06:00 08/16/18 06:00 Microbiology: Microbiology 08/14/18 21:47 Urine Culture - Preliminary Clean Catch Urine Staphylococcus aureus 08/13/18 09:11 Aerobic Blood Culture - Final Blood - Peripheral Staphylococcus aureus Anaerobic Blood Culture - Final Staphylococcus aureus 08/15/18 11:03 Aerobic Blood Culture - Preliminary Blood - Peripheral gram positive cocci Anaerobic Blood Culture - Preliminary gram positive cocci 08/15/18 11:09 Aerobic Blood Culture - Preliminary Blood - Peripheral gram positive cocci Anaerobic Blood Culture - Preliminary gram positive cocci 08/13/18 09:17 Aerobic Blood Culture - Final Blood - Peripheral Staphylococcus aureus Anaerobic Blood Culture - Final Staphylococcus aureus Imaging: Abdomen/Pelvis CT 08/02/18 04:01 CONCLUSION: 1. 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 2. Nonacute findings include severe atherosclerotic disease, cholelithiasis, stable complex cystic lesion of the left kidney measuring 6.5 cm, and cirrhotic liver. Humerus CT 08/11/18 00:00 CONCLUSION: 1. Nonacute appearing right-sided rib fractures. 2. No evidence for humerus fracture. 3. Note is made of ascites in the upper abdomen. Cervical Spine CT 08/12/18 00:00 CONCLUSION: 1. Degenerative disc change at C5-C6 with broad-based disc osteophyte complex with mass effect on the anterior thecal sac. This comes in close contact with the anterior cord which is poorly visualized. 2. Mild anterior spondylolisthesis of C4 on C5 approximately 2 mm. There is mild retrolisthesis of C5 on C6. 3. Mild disc osteophyte complex at C3-4. 4. Narrowing of the left neural foramina at C2-3 and C3-4 levels as well as narrowing of the right neural foramina at C5-6. Neck Ultrasound 08/15/18 00:00 CONCLUSION: 1. Unremarkable study. Abdomen/Bladder Ultrasound 08/16/18 00:00 CONCLUSION: 1. Limited examination secondary to bowel gas. 2. No evidence for obstructive uropathy. 3. Mildly echogenic kidneys consistent with medical renal disease. 4. 4.9 cm possible cyst in the inferior pole the right kidney which was not noted on recent CT exam and not demonstrated on sagittal images. Uncertain if this is artifactual. 5. Redemonstration of complex 4.4 cm cyst in the inferior pole of the left kidney. Head CT 08/16/18 00:00 CONCLUSION: 1. Senescent changes without acute intracranial abnormality. . Chest X-Ray 08/16/18 07:55 CONCLUSION: Satisfactory support line and tube positioning. Slight worsening in aeration, particularly at the left base. Procedures: 08/16/18-orotracheal intubation 08/16/18 -left IJ central venous catheter placement 08/16/18-left femoral arterial catheter placement Patient/Family Conference Family Conference Location: Telephone Issues Discussed: * Palliative care role, purpose, approach * Additional medical, psychosocial, and spiritual history * Patients general health, functional status, and cognitive changes in the months leading up to the current hospitalization * Patient/family understanding of the current medical problems * Patient/family understanding of prognosis * Patients goals of care as best understood from advance directives and/or conversations and/or values * Current medical treatment options and benefits/burdens of those options * Likely scenarios comparing ongoing aggressive care with a transition to comfort measures only * Questions answered to the best of my ability * Palliative care contact information provided Assessment and Plan - Disease Oriented Problem List (1) Acute respiratory failure with hypoxia and hypercapnia (2) Staphylococcus aureus bacteremia with sepsis (3) Thrombocytopenia (4) Acute kidney injury (5) Acute GI bleeding (6) Anemia (7) Lactic acidosis (8) Cardiomyopathy (9) Atrial flutter (10) Prostate cancer (11) Diabetes mellitus - Symptom Scale (1) Pain 0-10 Scale: Unable to quantify (Patient is intubated. Appears to be shaking head for no pain.) Comment: Patient has been complaining of neck pain. CTA neck on 08/12. (2) Dyspnea 0-10 Scale: Unable to quantify Pertinent Non-Medical Issues: Psychosocial: Patient is originally from [place]. He moved to [place] in 1999 after half-way. Patient has been twice. First is . Currently resides at home with his spouse Linda Butterfield. He has 4 adult children 1 daughter and 3 sons. 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 Spiritual: Patient is [employer]regational-declined visit from second time worker or certified coding specialist. Legal: Unknown if patient is ever completed advance directives. Ethical issues impacting care: None identified at this time. Important Contacts: Spouse-Linda Butterfield-[phone] . Prognosis: Mr. Butterfield is a 89-year-old patient with a medical history of diabetes mellitus, psoriasis, prostate cancer and left tibia/fibula fracture. Patient was brought to the emergency room by [facility] on 08/02/18 with complaints of worsening bright red blood per rectum with watery stool for a few days. Clinical course complicated with thrombocytopenia, bacteremia, dysphagia, altered mental status and acute respiratory failure. Given multiple ongoing comorbidities patient remains at high risk for further complications, deterioration and decline. . Code Status: No Code DNR Plan: PLAN: Legal decision maker: Patient is currently intubated on mechanical ventilation. It is not known whether patient will regain capacity to make his own medical decisions. According to [place] statute, his spouse Scout Mckeno will serve as his healthcare proxy. Goals: Aggressive short of no code. Patient spouse has made patient DNR today with the support of patient's son Salo. Provided patient's with anticipatory guidance in regards to compassionate withdrawal from care if patient continues to deteriorate. Patient's would like to notify all of patient's children of patient`s current medical status prior to making any further decisions. Palliative care contact information provided. CODE STATUS: No code DNR SYMPTOMS: * Pain: Patient has been complaining of neck pain. 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 CTA neck on 08/12/18 revealed C-spine degenerative disc change at C5-C6 with broad-based disc osteophyte complex with mass effect on the anterior thecal sac. This comes in close contact with the anterior cord which is poorly visualized. Mild anterior spondylolisthesis of C4 on C5 approximately 2 mm. There is mild retrolisthesis of C5 on C6. Mild disc osteophyte complex at C3-4. Narrowing of the left neural foramina at C2-3 and C3-4 levels as well as narrowing of the right neural foramina at C5-6. * Shortness of breath: Patient has acute systolic heart failure and he went into acute hypoxic Respiratory failure requiring intubation and mechanical ventilator support. Patient is currently on FiO2 50%. Palliative care will continue to follow the patient during hospital course as condition evolves, to assist patient/decision-maker with understanding of their medical conditions, weighing benefits/burdens of treatment options, for clarification of goals of treatment. Additionally will assist with any symptoms of palliative concern Appreciation Thank you for the opportunity to participate in the care of Turner Butterfield. Attestation Attestation: To help prompt me to consider important information that might be impacting today's encounter and assessment, information from prior notes written by myself or my colleagues may have been "brought forward" into today's note. My signature on this note, however, is an attestation that I personally performed the exam, history, and/or decision-making noted today, and, unless otherwise indicated, the interactions with patient, family, and staff as well as the review of records all occurred today. I also attest that the listed assessment and stated plan reflect my best clinical judgment today based on the combination of historical information, prior notes, and today's exam/ interactions. When time spent is documented, it refers only to time spent today by the signer, or if indicated, combined time spent today by collaborating physician/nurse practitioner.
--- NOTE | 2018-08-16 12:22 | CT ---
EXAM DATE: 08/16/2018 10:49 AM EDT AGE/SEX: 83 years / Male INDICATIONS: Left facial/neck swelling. CLINICAL DATA: This is the patient's initial encounter. Patient reports that signs and symptoms have been present for 1 day and indicates a pain score of Nonresponsive. MEDICAL/SURGICAL HISTORY: Diabetes. Carcinoma, prostatic. None. RADIATION DOSE: 15.75 CTDI (mGy) COMPARISON: [facility] [place], US SOFT TISSUE NECK, 08/15/2018. . TECHNIQUE: Helical acquisition was performed using a multirow detector CT scanner without contrast. Using automated exposure control and adjustment of the mA and/or kV according to patient size, radiat ion dose was kept as low as reasonably achievable to obtain optimal diagnostic quality images. DICOM format image data is available electronically for review and comparison. FINDINGS: NASOPHARYNX: NGT in place. The nasopharyngeal airway has a normal configuration. No mucosal thicken ing or mass is seen. OROPHARYNX: ETT in place. The intrinsic muscles of the tongue are grossly symmetric. The tonsillar pillars are intact. The prevertebral soft tissues are not thickened. LARYNX: The supraglottic, glottic, and infraglottic structures are grossly intact. PARAPHARYNGEAL: The parapharyngeal space is grossly intact. SALIVARY GLANDS: The left parotid gland is enlarged with mild diffuse increased stranding. There is no focal mass or drainable fluid collection. LYMPH NODES: Scattered cervical nodes. No enlarged or necrotic-appearing nodes. THYROID: Homogeneous enhancement without evidence of nodule. BONES: Unremarkable. VASCULAR: Bulky bilateral carotid artery calcified plaque. CONCLUSION: 1. Asymmetrical enlargement of the left parotid gland with mild diffuse stranding consistent with mi ld left parotiditis. 2. Bulky bilateral carotid artery plaque. Electronically signed by: Gabino Solorzano MD 08/16/2018 12:21 PM EDT
[2018-08-16] MEDS: Oral Hygiene Kit OROPHARYNG SCH ×2 (13:11→15:43)
[2018-08-16] MEDS: Hydrocortisone Sod Succinate 100 MG Vial IV.PUSH SCH ×2 (13:11→21:54)
[2018-08-16] MEDS ORDERED: Amiodarone Inj 150 MG in Dextrose 5% in Water Inj 97 ML IV.SIG ONE ×2 (13:45)
[2018-08-16] MEDS: Phenylephrine Inj 160 MG in Sodium Chlor 0.9% Inj 484 ML IV.CONT PRN (14:12)
[2018-08-16] MEDS: Norepinephrine Inj 16 MG in Sodium Chlor 0.9% Inj 234 ML IV.CONT PRN (14:15)
--- NOTE | 2018-08-16 15:21 | P.PNONC ---
Subjective Interval history: Patient has been upgraded to critical care. He is currently intubated and sedated, on pressors. Multiple nurses are at the bedside, they are having difficulty maintaining map and attempting to decrease heart rate. Patient attempts to open his eyes to command. Palliative care has been consulted, his is not at the bedside at this time. Objective Vital Signs/Intake & Output: Vital Signs 08/15/18 16:00 08/15/18 16:42 08/15/18 20:00 Temperature 98.6 F Pulse Rate 90 91 H 98 H Respiratory Rate 20 20 20 Blood Pressure 106/62 121/58 L Pulse Oximetry 96 94 L 08/15/18 21:38 08/15/18 23:29 08/16/18 00:00 Temperature 97.4 F L Pulse Rate 98 H 87 Respiratory Rate 22 18 Blood Pressure 100/50 L Pulse Oximetry 95 93 L 08/16/18 04:00 08/16/18 04:11 08/16/18 04:12 Temperature 98.5 F Pulse Rate 63 89 Respiratory Rate 22 22 Blood Pressure 106/63 Pulse Oximetry 98 95 08/16/18 05:00 08/16/18 06:05 08/16/18 07:00 Temperature Pulse Rate 133 H 63 Respiratory Rate 20 16 Blood Pressure 80/44 L 91/58 L Pulse Oximetry 95 97 08/16/18 08:00 08/16/18 09:25 08/16/18 11:45 Temperature 98.7 F Pulse Rate 144 H 143 H Respiratory Rate 16 23 Blood Pressure 119/65 Pulse Oximetry 100 100 08/16/18 12:00 08/16/18 13:12 Temperature 98.9 F Pulse Rate 149 H 147 H Respiratory Rate 25 H 17 Blood Pressure 116/64 Pulse Oximetry Intake & Output 08/15/18 08/16/18 08/16/18 18:59 06:59 18:59 Intake Total 622.5 / 622.5 605 / 605 Output Total 200 / 200 500 / 500 Balance 422.5 / 422.5 -500 / -500 605 / 605 Weight 83.6 kg Intake: IV 262.5 / 262.5 605 / 605 Levophed-Dextrose 4 mg/250 ml 250 / 250 Drip 4 mg In 250 ml @ 0 mls/hr IV.SIG .[facility] Rx#: [id number] Vancomycin Inj 1,250 MG In NS 262.5 / 262.5 Inj 250 ML @ 250 mls/hr IV.SIG Q24H [facility] Rx#:[id number] Ancef Inj 1,000 MG In NS Inj 100 / 100 100 ML @ 200 mls/hr IV.SIG Q8H [facility] Rx#:[id number] Oral 360 / 360 Output: Urine 200 / 200 500 / 500 Other: # Incontinent Voids 4 Date of Last Bowel Movement 08/15/18 08/15/18 08/15/18 # Bowel Movements 1 2 Result Diagrams: 08/16/18 06:00 08/16/18 06:00 Laboratory Results: Laboratory Results - last 24 hr 08/14/18 08/15/18 08/15/18 21:47 16:59 19:57 WBC RBC Hgb Hct MCV MCH MCHC RDW Plt Count MPV Prelim Diff (Auto) Neut % (Auto) Lymph % (Auto) [place] % (Auto) Eos % (Auto) Baso % (Auto) Neut # (Auto) Lymph # (Auto) [place] # (Auto) Eos # (Auto) Baso # (Auto) WBC Differential Seg Neuts % (Manual) Band Neuts % (Manual) Monocytes % (Manual) Abs Neuts (Manual) Nucleated RBCs/100 WBC Differential Comment Toxic Granulation Platelet Estimate Platelet Morphology Puncture Site Patient Temperature O2 Saturation ABG pH ABG pCO2 ABG pO2 ABG HCO3 ABG O2 Content ABG Base Excess ABG Methemoglobin Abhijeet Test Hemoglobin Carboxyhemoglobin O2 Delivery Device Vent Setting Inspired O2 Critical Value Sodium Potassium Chloride Carbon Dioxide Anion Gap BUN Creatinine Estimated GFR POC Glucose 190 H 199 H Random Glucose Lactic Acid Calcium Phosphorus Magnesium Total Bilirubin Direct Bilirubin Indirect Bilirubin AST ALT Alkaline Phosphatase Ammonia Total Creatine Kinase Troponin I Total Protein Albumin Amylase Lipase Procalcitonin Free T4 Urine Color Yellow Urine Clarity Hazy H Urine pH 6.0 Ur Specific [place] 1.012 Urine Protein Negative Urine Glucose (UA) 50 Urine Ketones Negative Urine Occult Blood Moderate H Urine Nitrate Negative Urine Bilirubin Negative Urine Urobilinogen Less than 2 Ur Leukocyte Esterase Large H Urine RBC 2 Urine WBC 48 H Urine WBC Clumps Rare H Ur Squamous Epith Cells <1 Urine Bacteria Occasional H Urine Mucus Few H Micro UA Comment Culture indicated Urine Culture Comments Culture indicated 08/16/18 08/16/18 08/16/18 01:15 05:37 05:39 WBC RBC Hgb Hct MCV MCH MCHC RDW Plt Count MPV Prelim Diff (Auto) Neut % (Auto) Lymph % (Auto) [place] % (Auto) Eos % (Auto) Baso % (Auto) Neut # (Auto) Lymph # (Auto) [place] # (Auto) Eos # (Auto) Baso # (Auto) WBC Differential Seg Neuts % (Manual) Band Neuts % (Manual) Monocytes % (Manual) Abs Neuts (Manual) Nucleated RBCs/100 WBC Differential Comment Toxic Granulation Platelet Estimate Platelet Morphology Puncture Site Right radial Right brachial Patient Temperature 98.6 98.6 O2 Saturation 92 95 ABG pH 7.46 H 7.46 H ABG pCO2 31 L 30 L ABG pO2 77 94 ABG HCO3 21 L 21 L ABG O2 Content 12.1 12.2 ABG Base Excess -1.9 -2.2 L ABG Methemoglobin 1.8 1.6 Abhijeet Test Present Hemoglobin 9.3 L 9.0 L Carboxyhemoglobin 1.4 1.1 O2 Delivery Device Bipap Bipap Vent Setting 10ipap/5epap Ipap 10/ epap 5 Inspired O2 50 50 Critical Value No No Sodium Potassium Chloride Carbon Dioxide Anion Gap BUN Creatinine Estimated GFR POC Glucose 214 H Random Glucose Lactic Acid Calcium Phosphorus Magnesium Total Bilirubin Direct Bilirubin Indirect Bilirubin AST ALT Alkaline Phosphatase Ammonia Total Creatine Kinase Troponin I Total Protein Albumin Amylase Lipase Procalcitonin Free T4 Urine Color Urine Clarity Urine pH Ur Specific [place] Urine Protein Urine Glucose (UA) Urine Ketones Urine Occult Blood Urine Nitrate Urine Bilirubin Urine Urobilinogen Ur Leukocyte Esterase Urine RBC Urine WBC Urine WBC Clumps Ur Squamous Epith Cells Urine Bacteria Urine Mucus Micro UA Comment Urine Culture Comments 08/16/18 08/16/18 08/16/18 06:00 06:00 06:00 WBC 14.8 H RBC 3.31 L Hgb 9.3 L Hct 28.9 L MCV 87.3 MCH 28.0 MCHC 32.1 RDW 17.6 H Plt Count 27 L MPV 13.6 H Prelim Diff (Auto) Slide review pending Neut % (Auto) 94.3 H Lymph % (Auto) 2.5 L [place] % (Auto) 3.1 Eos % (Auto) 0.0 Baso % (Auto) 0.1 Neut # (Auto) 13.9 H Lymph # (Auto) 0.4 L [place] # (Auto) 0.5 Eos # (Auto) 0.0 Baso # (Auto) 0.0 WBC Differential Manual diff final Seg Neuts % (Manual) 82 H Band Neuts % (Manual) 17 H Monocytes % (Manual) 1 Abs Neuts (Manual) 14.7 H Nucleated RBCs/100 WBC 1 H Differential Comment . Toxic Granulation 1+ H Platelet Estimate Low L Platelet Morphology Normal Puncture Site Patient Temperature O2 Saturation ABG pH ABG pCO2 ABG pO2 ABG HCO3 ABG O2 Content ABG Base Excess ABG Methemoglobin Abhijeet Test Hemoglobin Carboxyhemoglobin O2 Delivery Device Vent Setting Inspired O2 Critical Value Sodium 145 Potassium 3.9 Chloride 108 H Carbon Dioxide 23.5 Anion Gap 14 BUN 99 H Creatinine 1.62 H Estimated GFR 41 L POC Glucose Random Glucose 203 H Lactic Acid 5.9 H* Calcium 7.7 L Phosphorus 5.0 H Magnesium 3.1 H D Total Bilirubin Direct Bilirubin Indirect Bilirubin AST ALT Alkaline Phosphatase Ammonia Total Creatine Kinase Troponin I Total Protein Albumin 1.6 L Amylase Lipase Procalcitonin Free T4 1.55 H Urine Color Urine Clarity Urine pH Ur Specific [place] Urine Protein Urine Glucose (UA) Urine Ketones Urine Occult Blood Urine Nitrate Urine Bilirubin Urine Urobilinogen Ur Leukocyte Esterase Urine RBC Urine WBC Urine WBC Clumps Ur Squamous Epith Cells Urine Bacteria Urine Mucus Micro UA Comment Urine Culture Comments 08/16/18 08/16/18 08/16/18 08:14 09:10 09:10 WBC RBC Hgb Hct MCV MCH MCHC RDW Plt Count MPV Prelim Diff (Auto) Neut % (Auto) Lymph % (Auto) [place] % (Auto) Eos % (Auto) Baso % (Auto) Neut # (Auto) Lymph # (Auto) [place] # (Auto) Eos # (Auto) Baso # (Auto) WBC Differential Seg Neuts % (Manual) Band Neuts % (Manual) Monocytes % (Manual) Abs Neuts (Manual) Nucleated RBCs/100 WBC Differential Comment Toxic Granulation Platelet Estimate Platelet Morphology Puncture Site Art line Patient Temperature Not Reportable O2 Saturation 97 ABG pH 7.36 L ABG pCO2 40 ABG pO2 286 H ABG HCO3 22 ABG O2 Content 14.1 ABG Base Excess -2.8 L ABG Methemoglobin 1.4 Abhijeet Test Hemoglobin 9.8 L Carboxyhemoglobin 1.1 O2 Delivery Device Ventilator Vent Setting Prvc/ac Inspired O2 100 Critical Value No Sodium Potassium Chloride Carbon Dioxide Anion Gap BUN Creatinine Estimated GFR POC Glucose Random Glucose Lactic Acid Calcium Phosphorus Magnesium Total Bilirubin 1.3 H Direct Bilirubin 0.7 H Indirect Bilirubin 0.6 AST 29 ALT 36 Alkaline Phosphatase 89 Ammonia 44 H Total Creatine Kinase 244 Troponin I 0.16 H Total Protein 6.7 D Albumin 1.7 L Amylase 395 H Lipase 78 Procalcitonin Free T4 Urine Color Urine Clarity Urine pH Ur Specific [place] Urine Protein Urine Glucose (UA) Urine Ketones Urine Occult Blood Urine Nitrate Urine Bilirubin Urine Urobilinogen Ur Leukocyte Esterase Urine RBC Urine WBC Urine WBC Clumps Ur Squamous Epith Cells Urine Bacteria Urine Mucus Micro UA Comment Urine Culture Comments 08/16/18 08/16/18 08/16/18 09:10 12:41 12:42 WBC RBC Hgb Hct MCV MCH MCHC RDW Plt Count MPV Prelim Diff (Auto) Neut % (Auto) Lymph % (Auto) [place] % (Auto) Eos % (Auto) Baso % (Auto) Neut # (Auto) Lymph # (Auto) [place] # (Auto) Eos # (Auto) Baso # (Auto) WBC Differential Seg Neuts % (Manual) Band Neuts % (Manual) Monocytes % (Manual) Abs Neuts (Manual) Nucleated RBCs/100 WBC Differential Comment Toxic Granulation Platelet Estimate Platelet Morphology Puncture Site Patient Temperature O2 Saturation ABG pH ABG pCO2 ABG pO2 ABG HCO3 ABG O2 Content ABG Base Excess ABG Methemoglobin Abhijeet Test Hemoglobin Carboxyhemoglobin O2 Delivery Device Vent Setting Inspired O2 Critical Value Sodium Potassium Chloride Carbon Dioxide Anion Gap BUN Creatinine Estimated GFR POC Glucose 356 H 305 H Random Glucose Lactic Acid Calcium Phosphorus Magnesium Total Bilirubin Direct Bilirubin Indirect Bilirubin AST ALT Alkaline Phosphatase Ammonia Total Creatine Kinase Troponin I Total Protein Albumin Amylase Lipase Procalcitonin 3.32 H Free T4 Urine Color Urine Clarity Urine pH Ur Specific [place] Urine Protein Urine Glucose (UA) Urine Ketones Urine Occult Blood Urine Nitrate Urine Bilirubin Urine Urobilinogen Ur Leukocyte Esterase Urine RBC Urine WBC Urine WBC Clumps Ur Squamous Epith Cells Urine Bacteria Urine Mucus Micro UA Comment Urine Culture Comments Culture Results: Microbiology 08/14/18 21:47 Urine Culture - Preliminary Clean Catch Urine Staphylococcus aureus 08/13/18 09:11 Aerobic Blood Culture - Final Blood - Peripheral Staphylococcus aureus Anaerobic Blood Culture - Final Staphylococcus aureus 08/15/18 11:03 Aerobic Blood Culture - Preliminary Blood - Peripheral gram positive cocci Anaerobic Blood Culture - Preliminary gram positive cocci 08/15/18 11:09 Aerobic Blood Culture - Preliminary Blood - Peripheral gram positive cocci Anaerobic Blood Culture - Preliminary gram positive cocci 08/13/18 09:17 Aerobic Blood Culture - Final Blood - Peripheral Staphylococcus aureus Anaerobic Blood Culture - Final Staphylococcus aureus Imaging Studies: Impressions Abdomen/Bladder Ultrasound 08/16/18 00:00 CONCLUSION: 1. Limited examination secondary to bowel gas. 2. No evidence for obstructive uropathy. 3. Mildly echogenic kidneys consistent with medical renal disease. 4. 4.9 cm possible cyst in the inferior pole the right kidney which was not noted on recent CT exam and not demonstrated on sagittal images. Uncertain if this is artifactual. 5. Redemonstration of complex 4.4 cm cyst in the inferior pole of the left kidney. Head CT 08/16/18 00:00 CONCLUSION: 1. Senescent changes without acute intracranial abnormality. . Soft Tissue Neck CT 08/16/18 00:00 CONCLUSION: 1. Asymmetrical enlargement of the left parotid gland with mild diffuse stranding consistent with mild left parotiditis. 2. Bulky bilateral carotid artery plaque. Chest X-Ray 08/16/18 00:18 CONCLUSION: Patchy consolidation or atelectasis in the bases being worse on the left. Cardiomegaly. Chest X-Ray 08/16/18 06:02 CONCLUSION: Cardiomegaly. Chest X-Ray 08/16/18 07:55 CONCLUSION: Satisfactory support line and tube positioning. Slight worsening in aeration, particularly at the left base. Medications: Active Medications Generic Name Dose Route Start Last Admin Trade Name Freq PRN Reason Stop Dose Admin Acetaminophen 650 mg 08/02/18 04:18 08/10/18 03:05 Tylenol PO 650 mg Q6H PRN Administration PAIN 1-2 OR FEVER >101F Albuterol 2.5 mg 08/08/18 08:57 08/13/18 05:01 Albuterol Neb (Prn) NEB 2.5 mg Q2HR NEB PRN Administration DYSPNEA Albuterol 1 ampul 08/16/18 00:00 08/16/18 13:12 Duoneb Neb (Katherine) NEB Not Given Q4HR NEB KATHERINE Artificial Tears 1 drop 08/16/18 09:00 08/16/18 08:57 Refresh Tears 0.5% Opth Drops EACH EYE 1 drop BID KATHERINE Administration Chlorhexidine Gluconate 15 ml 08/16/18 08:00 08/16/18 08:57 Peridex 0.12% Oral Kit OROPHARYNG 15 ml BID@0800,2000 KATHERINE Administration Hydrocortisone Sodium Succinate 100 mg 08/16/18 14:00 08/16/18 13:11 Solucortef Inj IV.PUSH 100 mg Q8HR KATHERINE Administration Potassium Chloride 20 meq in 100 mls @ 50 mls/hr 08/05/18 08:03 08/05/18 17: 14 Kcl 20 Meq Premix Inj IV.SIG Infused Q2H PRN Infusion For Potassium 2.8 - 3.2 mEq/L Potassium Phosphate 30 mmol/ 260 mls @ 42 mls/hr 08/05/18 08:03 08/07/18 11: 42 Sodium Chloride IV.SIG Infused UNSCH PRN Infusion SEE LABEL COMMENTS Sodium Chloride 1,000 mls @ 0 mls/hr 08/14/18 15:18 08/14/18 19:00 Ns Inj IV.SIG Infused BOLUS KATHERINE Infusion Wide Open Norepinephrine Bitartrate 16 250 mls @ 1.87 mls/hr 08/16/18 06:49 08/16/18 14 :15 mg/ Sodium Chloride IV.CONT 14 mcg/min TITRATE PRN 13.12 mls/hr See Protocol Administration Protocol 2 MCG/MIN Propofol 1,000 mg in 100 mls @ 2.508 mls/hr 08/16/18 07:02 08/16/18 10:13 Diprivan 1000 Mg/100 Ml Inj IV.CONT 0 mcg/kg/min TITRATE PRN 0 mls/hr Per Protocol Titration Protocol 5 MCG/KG/MIN Cefazolin Sodium 1,000 mg/ 100 mls @ 200 mls/hr 08/16/18 09:00 08/16/18 10:13 Sodium Chloride IV.SIG Infused Q8H KATHERINE Infusion Phenylephrine HCl 160 mg/ 500 mls @ 7.5 mls/hr 08/16/18 10:00 08/16/18 14:12 Sodium Chloride IV.CONT 40 mcg/min TITRATE PRN 7.5 mls/hr See protol Administration Protocol 40 MCG/MIN Insulin Aspart 0 unit 08/16/18 12:00 08/16/18 13:10 Novolog Insulin Correctional Sugar Inj SQ 10 unit Q4HR KATHERINE Administration Protocol Methimazole 5 mg 08/16/18 11:00 08/16/18 13:02 Tapazole PO 5 mg BID KATHERINE Administration Miscellaneous Medication 1 each 08/16/18 12:00 08/16/18 13:11 OROPHARYNG 1 each 0000,0400,1200,1600 KATHERINE Administration Multi-Ingredient Mouthwash/Gargle 10 ml 08/08/18 18:00 08/16/18 12:58 Magic Mouthwash Adult Liq SWISH-SWAL Not Given QID KATHERINE Pantoprazole Sodium 40 mg 08/16/18 09:00 08/16/18 09:36 Protonix Inj IV.PUSH 40 mg BID KATHERINE Administration Polyethylene Glycol 17 gm 08/08/18 11:45 08/16/18 08:57 Miralax PO Not Given DAILY [facility] Potassium Bicarb/Potassium Chloride 50 meq 08/05/18 08:43 08/07/18 22:30 K-Lyte Cl Eff PO 50 meq UNSCH PRN Administration For Potassium 3.3 - 3.5 mEq/L Potassium Phosphate 2,000 mg 08/05/18 08:03 08/06/18 15:48 K-Phos Original PO 2,000 mg Q4H PRN Administration Phosphorus Less Than 2.5 mg/dL Romiplostim 89 mcg 08/09/18 10:00 08/16/18 10:00 Nplate Inj SQ Not Given Q7D [facility] Senna/Docusate Sodium 1 tab 08/02/18 09:00 08/16/18 08:57 Lisa-Colace PO Not Given BID KATHERINE Sodium Chloride 2 ml 08/02/18 09:00 08/16/18 08:57 Ns Flush IV.FLUSH 2 ml BID KATHERINE Administration Sodium Chloride 2 ml 08/02/18 04:18 08/13/18 10:16 Ns Flush IV.FLUSH 2 ml PRN PRN Administration FLUSH AFTER USING IV ACCESS Tamsulosin HCl 0.4 mg 08/02/18 09:00 08/14/18 13:15 Flomax PO Not Given DAILY [facility] Objective Remarks: GENERAL: Critically ill-appearing elderly male patient, intubated and sedated. SKIN: Pale, warm and dry. Bruises to bilateral arms and right foot. HEAD: Normocephalic. EYES: No scleral icterus. No injection or drainage. Pupils pinpoint. NECK: Supple, trachea midline. CARDIOVASCULAR: Distant heart sounds. Tachycardic. RESPIRATORY: Anterior breath sounds with rhonchi throughout, equal bilaterally. FiO2 50%. GASTROINTESTINAL: Abdomen soft, distended, non-tender. EXTREMITIES: No cyanosis, or edema. MUSCULOSKELETAL: Decreased muscle tone. NEUROLOGICAL: Sedated. Attempts to open eyes to command. Moving extremities sporadically, not to command. Assessment/Plan - Plan Mr. Butterfield is a pleasant 83-year-old male patient who is currently hospitalized for a GI bleed. Hematology was consulted for severe thrombocytopenia. 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 Plan: 1. Acute ITP. Status post immunoglobulin on 08/04 & 08/08 and Nplate on . Platelet count remain 27,000. Hold endplate at this time. Patient critically ill. 2. GI bleed, management per gastroenterology. No obvious signs of bleeding, hemoglobin stable at 9.3. 3. Sepsis, bacteremia with multiple positive blood cultures growing Staphylococcus areas. Infectious disease is following. Possible endocarditis, YANETH on hold due to patient's critical status. 4. Patient remains critically ill with a poor prognosis. Palliative care is following. - Attending Statement Pt seen and case discussed with Mrs. Butterfield. Pt intubated, hypotensive and tachycardic with poor prognosis from septic shoct etc. at this point. Hence will hold off on today's dose of Nplate and follow up in AM. Do not see benefit of more drug therapy for his ITP at this point, given the fact that platelets are stable, pt is not bleeding and is intubated, in septic shock. Will continue steroids for now. Prognosis poor.
--- NOTE | 2018-08-16 15:42 | ECG ---
Date Performed: 08/16/2018 Time Performed: 10:51:26 PTAGE: 83 years EKG: Marked baseline artifact Atrial flutter with rapid ventricular response with 2:1 A-V block. Indeterminate axis IV conduction defect Abnormal ECG Unfortunately the present EKG has marked artifa ct and I cannot accurately compare to prior EKG. PREVIOUS TRACING : 08/16/2018 06.04 DOCTOR: Tony Richards Interpretating Date/Time 08/16/2018 15:40:10
[2018-08-16 16:44] VITALS: BP 116/52
[2018-08-16] MEDS: Vasopressin Inj 40 UNIT in Sodium Chlor 0.9% Inj 98 ML IV.CONT SCH (16:49)
[2018-08-16 17:05] LABS: Triiodothyronine (T3) Free 1.03 pg/mL (2.18-3.98); Troponin I 0.18 ng/mL (0.02-0.05)
[2018-08-16] MEDS: fentaNYL 10 mcg/mL Premix Drip 2,500 MCG/250 ML BAG IV.SIG PRN (19:05)
--- NOTE | 2018-08-16 19:44 | P.PNCA ---
Subjective Interval history: Reevaluating patient due to bacteremia/sepsis Events overnight noted Currently intubated and sedated in ICU Medications and Allergies Active Medications: Active Medications Acetaminophen (Tylenol) 650 mg PO Q6H PRN PRN Reason: PAIN 1-2 OR FEVER >101F Last Admin: 08/10/18 03:05 Dose: 650 mg Al Hydroxide/Mg Hydroxide (Milk Of Magnalbert Liq) 30 ml PO Q12H PRN PRN Reason: Mild Constipation Albuterol (Albuterol Neb (Prn)) 2.5 mg NEB Q2HR NEB PRN PRN Reason: DYSPNEA Last Admin: 08/13/18 05:01 Dose: 2.5 mg Albuterol (Duoneb Neb (Katherine)) 1 ampul NEB Q4HR NEB [facility] Last Admin: 08/16/18 16:54 Dose: 1 ampul Artificial Tears (Refresh Tears 0.5% Opth Drops) 1 drop EACH EYE BID [facility] Last Admin: 08/16/18 08:57 Dose: 1 drop Chlorhexidine Gluconate (Peridex 0.12% Oral Kit) 15 ml OROPHARYNG BID@0800, 2000 [facility] Last Admin: 08/16/18 08:57 Dose: 15 ml Dextrose (D50w Vial) 50 ml IV.PUSH UNSCH PRN PRN Reason: PER HYPOGLYCEMIA PROTOCOL Glucagon (Glucagon Inj) 1 mg OTHER PRN PRN PRN Reason: for Hypoglycemia Protocol Hydrocortisone Sodium Succinate (Solucortef Inj) 100 mg IV.PUSH Q8HR [facility] Last Admin: 08/16/18 13:11 Dose: 100 mg Magnesium Sulfate 4 gm/ Sodium (Chloride) 100 mls @ 50 mls/hr IV.SIG UNSCH PRN PRN Reason: For Magnesium 0.9 - 1.1 mg/dL Magnesium Sulfate 2 gm/ Sodium (Chloride) 100 mls @ 50 mls/hr IV.SIG UNSCH PRN PRN Reason: For Magnesium 1.2 - 1.6 mg/dL Potassium Chloride (Kcl 40 Meq Premix Inj) 40 meq in 100 mls @ 25 mls/hr IV.SIG Q2H PRN PRN Reason: For Potassium 2.8 - 3.2 mEq/L Potassium Chloride (Kcl 20 Meq Premix Inj) 20 meq in 100 mls @ 50 mls/hr IV.SIG Q2H PRN PRN Reason: For Potassium 3.3 - 3.5 mEq/L Potassium Chloride (Kcl 40 Meq Premix Inj) 40 meq in 100 mls @ 25 mls/hr IV.SIG UNSCH PRN PRN Reason: For Potassium 3.3 - 3.5 mEq/L Potassium Chloride (Kcl 20 Meq Premix Inj) 20 meq in 100 mls @ 50 mls/hr IV.SIG Q2H PRN PRN Reason: For Potassium 2.8 - 3.2 mEq/L Last Infusion: 08/05/18 17:14 Dose: Infused Potassium Phosphate 30 mmol/ (Sodium Chloride) 260 mls @ 42 mls/hr IV.SIG UNSCH PRN PRN Reason: SEE LABEL COMMENTS Last Infusion: 08/07/18 11:42 Dose: Infused Sodium Phosphate 30 mmol/ (Sodium Chloride) 260 mls @ 42 mls/hr IV.SIG UNSCH PRN PRN Reason: For Phosphorus < 2.5 mg/dL Sodium Chloride (Ns Inj) 1,000 mls @ 0 mls/hr IV.SIG BOLUS KATHERINE Last Infusion: 08/14/18 19:00 Dose: Infused Sodium Chloride (Ns Inj) 500 mls @ 0 mls/hr IV.SIG BOLUS KATHERINE Norepinephrine Bitartrate 16 (mg/ Sodium Chloride) 250 mls @ 1.87 mls/hr IV.CONT TITRATE PRN; Protocol PRN Reason: See Protocol Last Admin: 08/16/18 14:15 Dose: 14 mcg/min, 13.12 mls/hr Propofol (Diprivan 1000 Mg/100 Ml Inj) 1,000 mg in 100 mls @ 2.508 mls/hr IV.CONT TITRATE PRN; Protocol PRN Reason: Per Protocol Last Titration: 08/16/18 12:55 Dose: 0 mcg/kg/min, 0 mls/hr Fentanyl (Fentanyl 10 Mcg/Ml Premix Drip) 2,500 mcg in 250 mls @ 5 mls/hr IV.SIG TITRATE PRN; Protocol PRN Reason: Per Protocol Last Admin: 08/16/18 19:05 Dose: 50 mcg/hr, 5 mls/hr Cefazolin Sodium 1,000 mg/ (Sodium Chloride) 100 mls @ 200 mls/hr IV.SIG Q8H KATHERINE Last Infusion: 08/16/18 18:24 Dose: Infused Phenylephrine HCl 160 mg/ (Sodium Chloride) 500 mls @ 7.5 mls/hr IV.CONT TITRATE PRN; Protocol PRN Reason: See protol Last Admin: 08/16/18 14:12 Dose: 40 mcg/min, 7.5 mls/hr Amiodarone HCl 450 mg/ (Dextrose) 250 mls @ 33.33 mls/hr IV.CONT TITRATE PRN; Protocol PRN Reason: Per Protocol Vasopressin 40 unit/ Sodium (Chloride) 100 mls @ 6 mls/hr IV.CONT CONT KATHERINE; Protocol Last Admin: 08/16/18 16:49 Dose: 0.04 units/min, 6 mls/hr Insulin Aspart (Novolog Insulin Correctional Sugar Inj) 0 unit SQ Q4HR [facility]; Protocol Last Admin: 08/16/18 16:20 Dose: Not Given Lactulose (Lactulose Liq) 30 ml PO DAILY PRN PRN Reason: SEVERE CONSITIPATION Magnesium Oxide (Mag-Ox) 800 mg PO UNSCH PRN PRN Reason: For Magnesium 1.2 - 1.6 mg/dL Miscellaneous Information ([facility] [place] [facility] Ordered Lab Info) 0 each OTHER ONCE ONE Stop: 08/18/18 10:46 Miscellaneous Medication () 1 each OROPHARYNG 0000,0400,1200,1600 [facility] Last Admin: 08/16/18 15:43 Dose: 1 each Multi-Ingredient Mouthwash/Gargle (Magic Mouthwash Adult Liq) 10 ml SWISH-SWAL QID [facility] Last Admin: 08/16/18 18:23 Dose: Not Given Naloxone HCl (Narcan Inj) 0.4 mg IV.PUSH UNSCH PRN PRN Reason: SEE LABEL COMMENTS Ondansetron HCl (Zofran Inj) 4 mg IV.PUSH Q6H PRN PRN Reason: NAUSEA OR VOMITING Pantoprazole Sodium (Protonix Inj) 40 mg IV.PUSH BID [facility] Last Admin: 08/16/18 09:36 Dose: 40 mg Polyethylene Glycol (Miralax) 17 gm PO DAILY [facility] Last Admin: 08/16/18 08:57 Dose: Not Given Potassium Bicarb/Potassium Chloride (K-Lyte Cl Eff) 50 meq PO UNSCH PRN PRN Reason: For Potassium 3.3 - 3.5 mEq/L Last Admin: 08/07/18 22:30 Dose: 50 meq Potassium Phosphate (K-Phos Original) 2,000 mg PO Q4H PRN PRN Reason: Phosphorus Less Than 2.5 mg/dL Last Admin: 08/06/18 15:48 Dose: 2,000 mg Potassium Phosphate (K-Phos Original) 2,000 mg PO UNSCH PRN PRN Reason: SEE LABEL COMMENTS Romiplostim (Nplate Inj) 89 mcg SQ Q7D [facility] Last Admin: 08/16/18 10:00 Dose: Not Given Senna/Docusate Sodium (Lisa-Colace) 1 tab PO BID [facility] Last Admin: 08/16/18 08:57 Dose: Not Given Sennosides (Senokot) 17.2 mg PO Q12H PRN PRN Reason: Moderate Constipation Sodium Chloride (Ns Flush) 2 ml IV.FLUSH BID [facility] Last Admin: 08/16/18 08:57 Dose: 2 ml Sodium Chloride (Ns Flush) 2 ml IV.FLUSH PRN PRN PRN Reason: FLUSH AFTER USING IV ACCESS Last Admin: 08/13/18 10:16 Dose: 2 ml Tamsulosin HCl (Flomax) 0.4 mg PO DAILY [facility] Last Admin: 08/14/18 13:15 Dose: Not Given Terbutaline Sulfate (Brethine Inj) 1 mg SQ UNSCH PRN PRN Reason: For Extravasation Allergies Allergy/AdvReac Type Severity Reaction Status Date / Time No Known Allergies Allergy Verified 08/02/18 03:15 Home Medications Medication Instructions Recorded Confirmed Type atenolol 25 mg PO DAILY 08/02/18 08/02/18 History chlorpheniramine maleate 4 mg PO Q4H 08/02/18 08/02/18 History [Chlor-Trimeton] metformin 1,000 mg PO BID 08/02/18 08/02/18 History pantoprazole [Protonix] 40 mg PO DAILY 08/02/18 08/02/18 History pioglitazone [Actos] 45 mg PO DAILY 08/02/18 08/02/18 History sitagliptin [Januvia] 100 mg PO DAILY 08/02/18 08/02/18 History tamsulosin 0.4 mg PO DAILY 08/02/18 08/02/18 History Physical Exam Vital signs: Vital Signs 08/15/18 20:00 08/15/18 21:38 08/15/18 23:29 Temperature 98.6 F Pulse Rate 98 H 98 H Respiratory Rate 20 22 Blood Pressure 121/58 L Pulse Oximetry 94 L 95 08/16/18 00:00 08/16/18 04:00 08/16/18 04:11 Temperature 97.4 F L 98.5 F Pulse Rate 87 63 Respiratory Rate 18 22 Blood Pressure 100/50 L 106/63 Pulse Oximetry 93 L 98 95 08/16/18 04:12 08/16/18 05:00 08/16/18 06:05 Temperature Pulse Rate 89 133 H 63 Respiratory Rate 22 20 Blood Pressure 80/44 L 91/58 L Pulse Oximetry 95 08/16/18 07:00 08/16/18 08:00 08/16/18 09:25 Temperature 98.7 F Pulse Rate 144 H 143 H Respiratory Rate 16 16 23 Blood Pressure 119/65 Pulse Oximetry 97 100 08/16/18 11:45 08/16/18 12:00 08/16/18 13:12 Temperature 98.9 F Pulse Rate 149 H 147 H Respiratory Rate 25 H 17 Blood Pressure 116/64 Pulse Oximetry 100 08/16/18 16:00 08/16/18 16:38 08/16/18 16:56 Temperature 98.3 F Pulse Rate 104 H 106 H Respiratory Rate 22 21 23 Blood Pressure 116/52 L Pulse Oximetry 100 Intake & Output 08/16/18 08/16/18 08/17/18 06:59 18:59 06:59 Intake Total 805 / 805 Output Total 500 / 500 627 / 627 Balance -500 / -500 178 / 178 Weight 83.6 kg Intake: IV 805 / 805 Cordarone Inj 150 MG In D5W Inj 100 / 100 97 ML @ 100 mls/hr IV.SIG ONCE ONE Rx#:[id number] Levophed-Dextrose 4 mg/250 ml 250 / 250 Drip 4 mg In 250 ml @ 0 mls/hr IV.SIG .STK-MED ONE Rx#: [id number] Ancef Inj 1,000 MG In NS Inj 200 / 200 100 ML @ 200 mls/hr IV.SIG Q8H KATHERINE Rx#:[id number] Output: Urine 500 / 500 625 / 625 Urine/Stool Mix 2 / 2 Other: # Incontinent Voids 4 Date of Last Bowel Movement 08/15/18 08/15/18 # Bowel Movements 2 2 Narrative: GENERAL: Intubated and sedated SKIN: Warm and dry. HEAD: Normocephalic. EYES: No scleral icterus. No injection or drainage. NECK: Supple, trachea midline. No JVD. CARDIOVASCULAR: Tachycardia without murmurs, gallops, or rubs. RESPIRATORY: Decreased breath sounds bilaterally GASTROINTESTINAL: Abdomen soft, non-tender, nondistended. MUSCULOSKELETAL: No cyanosis, or edema. BACK: Nontender without obvious deformity. No CVA tenderness. Results 08/16/18 06:00 08/16/18 06:00 Cardiac Enzymes 08/15/18 08/16/18 08/16/18 Range/Units 06:15 09:10 16:15 AST 29 (15-37) U/L Troponin I 0.16 H 0.18 H (0.02-0.05) ng/mL B-Natriuretic Peptide 303 H (0-100) pg/mL Coagulation 08/15/18 Range/Units 06:15 B-Natriuretic Peptide 303 H (0-100) pg/mL CBC 08/15/18 08/16/18 Range/Units 06:15 06:00 WBC 18.0 H 14.8 H (4.0-11.0) th/mm3 RBC 3.35 L 3.31 L (4.50-5.90) mil/mm3 Hgb 9.4 L 9.3 L (13.0-17.0) gm/dL Hct 29.2 L 28.9 L (39.0-51.0) % Plt Count 27 L 27 L (150-450) th/mm3 Neut # (Auto) 13.9 H (1.8-7.7) th/mm3 Lymph # (Auto) 0.4 L (1.0-4.8) th/mm3 [place] # (Auto) 0.5 (0.0-0.9) th/mm3 Eos # (Auto) 0.0 (0.0-0.4) th/mm3 Baso # (Auto) 0.0 (0.0-0.2) th/mm3 Comprehensive Metabolic Panel 08/15/18 08/16/18 08/16/18 Range/Units 06:15 06:00 09:10 Sodium 141 145 (136-145) meq/L Potassium 3.7 3.9 (3.5-5.1) meq/L Chloride 105 108 H (98-107) meq/L Carbon Dioxide 23.5 23.5 (21.0-32.0) meq/L BUN 79 H 99 H (7-18) mg/dL Creatinine 1.43 H 1.62 H (0.60-1.30) mg/dL Calcium 7.8 L 7.7 L (8.5-10.1) mg/dL Direct Bilirubin 0.7 H (0.0-0.2) mg/dL Indirect Bilirubin 0.6 (0.0-0.8) mg/dL AST 29 (15-37) U/L ALT 36 (12-78) U/L Alkaline Phosphatase 89 (45-117) U/L Total Protein 6.7 D (6.4-8.2) g/dL Albumin 1.8 L 1.6 L 1.7 L (3.4-5.0) g/dL Intake and Output 08/16/18 08/16/18 08/16/18 06:59 14:59 22:59 Intake Total 605 / 605 200 / 200 Output Total 500 / 500 627 / 627 Balance -500 / -500 605 / 605 -427 / -427 Intake: IV 605 / 605 200 / 200 Cordarone Inj 150 MG In D5W Inj 100 / 100 97 ML @ 100 mls/hr IV.SIG ONCE ONE Rx#:[id number] Levophed-Dextrose 4 mg/250 ml 250 / 250 Drip 4 mg In 250 ml @ 0 mls/hr IV.SIG .STK-MED ONE Rx#: [id number] Ancef Inj 1,000 MG In NS Inj 100 / 100 100 / 100 100 ML @ 200 mls/hr IV.SIG Q8H [facility] Rx#:[id number] Output: Urine 500 / 500 625 / 625 Urine/Stool Mix 2 / 2 Other: # Incontinent Voids 4 Date of Last Bowel Movement 08/15/18 08/15/18 # Bowel Movements 2 2 Weight 83.6 kg - Imaging and Cardiology Imaging: Impressions Chest X-Ray 08/15/18 00:00 CONCLUSION: No acute cardiopulmonary disease. Neck Ultrasound 08/15/18 00:00 CONCLUSION: 1. Unremarkable study. Abdomen/Bladder Ultrasound 08/16/18 00:00 CONCLUSION: 1. Limited examination secondary to bowel gas. 2. No evidence for obstructive uropathy. 3. Mildly echogenic kidneys consistent with medical renal disease. 4. 4.9 cm possible cyst in the inferior pole the right kidney which was not noted on recent CT exam and not demonstrated on sagittal images. Uncertain if this is artifactual. 5. Redemonstration of complex 4.4 cm cyst in the inferior pole of the left kidney. Head CT 08/16/18 00:00 CONCLUSION: 1. Senescent changes without acute intracranial abnormality. . Soft Tissue Neck CT 08/16/18 00:00 CONCLUSION: 1. Asymmetrical enlargement of the left parotid gland with mild diffuse stranding consistent with mild left parotiditis. 2. Bulky bilateral carotid artery plaque. Chest X-Ray 08/16/18 00:18 CONCLUSION: Patchy consolidation or atelectasis in the bases being worse on the left. Cardiomegaly. Chest X-Ray 08/16/18 06:02 CONCLUSION: Cardiomegaly. Chest X-Ray 08/16/18 07:55 CONCLUSION: Satisfactory support line and tube positioning. Slight worsening in aeration, particularly at the left base. Assessment and Plan - Assessment (1) Cardiomyopathy Code(s): I42.9 - Cardiomyopathy, unspecified Status: Acute (2) Wide-complex tachycardia Code(s): I47.2 - Ventricular tachycardia Status: Acute (3) Atrial flutter Code(s): I48.92 - Unspecified atrial flutter Status: Acute (4) Hematochezia Code(s): K92.1 - Melena Status: Acute (5) Lower gastrointestinal hemorrhage Code(s): K92.2 - Gastrointestinal hemorrhage, unspecified Status: Acute (6) Anemia Code(s): D64.9 - Anemia, unspecified Status: Acute (7) Thrombocytopenia Code(s): D69.6 - Thrombocytopenia, unspecified Status: Acute (8) Acute GI bleeding Code(s): K92.2 - Gastrointestinal hemorrhage, unspecified Status: Acute (9) Acute hypotension Code(s): I95.9 - Hypotension, unspecified Status: Acute (10) Staphylococcus aureus bacteremia with sepsis Code(s): A41.01 - Sepsis due to Methicillin susceptible Staphylococcus aureus Status: Acute (11) Acute respiratory failure with hypoxia and hypercapnia Code(s): J96.01 - Acute respiratory failure with hypoxia; J96.02 - Acute respiratory failure with hypercapnia Status: Acute - Plan 1) Cardiomyopathy Unsure of cause at this time Unable to undergo ischemic evaluation due to anemia/thrombocytopenia Con't medical management Will need repeat echo in 3 months while on medical management to evaluate ejection fraction Hx of prostate CA No chemotherapeutic agents that are cardiotoxic given 2) Wide complex tachycardia Asymptomatic Probable Aflutter with 2:1 with aberrancy Similar event on EKG from 11/2014 3) Atrial flutter Not a candidate for anti-coagulation or ASA due to thrombocytopenia 4) Hx of Prostate cancer Received chemo and radiation 5) GI bleed Per GI 6) Bacteremia with sepsis Discussed with ID, not a candidate for YANETH at this time due to critical nature If he turns around, then will plan on YANETH to evaluate for endocarditis Agree with palliative care consultation
[2018-08-17] MEDS: Oral Hygiene Kit OROPHARYNG SCH ×4 (00:09→15:53)
[2018-08-17] MEDS: Insulin NovoLOG Aspart Correctional Sugar Inj SQ SCH ×6 (00:09→20:50)
[2018-08-17] MEDS: Phenylephrine Inj 160 MG in Sodium Chlor 0.9% Inj 484 ML IV.CONT PRN ×2 (00:10→17:17)
[2018-08-17] MEDS: Hydrocortisone Sod Succinate 100 MG Vial IV.PUSH SCH ×4 (05:03→21:10)
--- NOTE | 2018-08-17 05:12 | XR ---
EXAM DATE: 08/17/2018 6:00 AM EDT AGE/SEX: 83 years / Male INDICATIONS: Shortness of breath. CLINICAL DATA: This is the patient's subsequent encounter. Patient reports that signs and symptoms h ave been present for 2 weeks and indicates a pain score of Nonresponsive. MEDICAL/SURGICAL HISTORY: Diabetes mellitus type II. None. COMPARISON: C, CHEST 1V SINGLE AP, 08/16/2018. . FINDINGS: ET tube and NG tube are well placed. The heart size is enlarged. There is patchy density at the bases bilaterally. CONCLUSION: Cardiomegaly. Basilar areas of mild consolidation or atelectasis. Electronically signed by: Noah Escalante MD 08/17/2018 5:11 AM EDT
[2018-08-17 05:36] LABS: Baso % (Auto) 0.1 % (0.0-2.0); Hematocrit 26.2 % (39.0-51.0); Hemoglobin 8.7 gm/dL (13.0-17.0); Lymph # (Auto) 0.6 th/mm3 (1.0-4.8); Lymph % (Auto) 2.7 % (9.0-44.0); Mean Corpuscular HGB Conc 33.3 % (32.0-36.0); Mean Corpuscular Hemoglobin 28.1 pg (27.0-34.0); Mean Corpuscular Volume 84.4 fL (80.0-100.0); Mean Platelet Volume 11.4 fL (7.0-11.0); Mono # (Auto) 0.7 th/mm3 (0.0-0.9); Mono % (Auto) 3.2 % (0.0-8.0); Neut # (Auto) 20.2 th/mm3 (1.8-7.7); Platelet Count 39 th/mm3 (150-450); Red Blood Count 3.11 mil/mm3 (4.50-5.90); Red Cell Distribution Width 17.8 % (11.6-17.2); White Blood Count 21.5 th/mm3 (4.0-11.0)
[2018-08-17] MEDS: Vasopressin Inj 40 UNIT in Sodium Chlor 0.9% Inj 98 ML IV.CONT SCH ×2 (05:47→21:33)
[2018-08-17 06:01] LABS: INR 1.3 Ratio; Prothrombin Time 12.7 sec (9.8-11.6)
[2018-08-17 06:19] LABS: Alanine Aminotransferase 40 U/L (12-78); Albumin 1.4 g/dL (3.4-5.0); Alkaline Phosphatase 89 U/L (45-117); Anion Gap 9 meq/L (5-15); Aspartate Aminotransferase 48 U/L (15-37); Blood Urea Nitrogen 96 mg/dL (7-18); Calcium 8.1 mg/dL (8.5-10.1); Carbon Dioxide 24.8 meq/L (21.0-32.0); Chloride 116 meq/L (98-107); Glomerular Filtration Rate 46 mL/min (>89); Glucose,Random 147 mg/dL (74-106); Magnesium 2.9 mg/dL (1.5-2.5); Phosphorus 3.7 mg/dL (2.5-4.9); Potassium 3.5 meq/L (3.5-5.1); Sodium 150 meq/L (136-145); Thyroid Stimulating Hormone 0.024 uIU/mL (0.358-3.740); Total Protein 6.2 g/dL (6.4-8.2)
[2018-08-17] MEDS ORDERED: Sod Chloride 0.9% Inj 1,000 ML IV.SIG ONE (07:45)
--- NOTE | 2018-08-17 07:53 | P.PNCC ---
Subjective Subjective Remarks/Hospital Course: 83-year-old very pleasant gentleman with history of prostate cancer on hormonal therapy with the last course received in end of May, presents with generalized weakness and gross blood on rectal exam with very loose watery blood. Patient initially was hypotensive prior to arrival with the blood pressure 80/50, after liter of fluid prior to arrival by [facility] the patient's blood pressure now 120/59. Laboratory abnormalities notable for a platelet count of 7000, hemoglobin of 7.1. These are critical levels and a 6 pack of platelets as well as 2 PRBCs now and 2 in reserve been ordered by ED attending, as well as Protonix drip, and octreotide. The patient does have a history of prostate cancer, he has been on Firmagon from his urology/oncologist. 08/03 Patient is lying in bed in NAD. s/p 2u PLT and 2u PRBC yesterday PLT 5 this morning. 08/04 No events overnight. s/p transfusion 1u PLT and 1 u PRBC yesterday PLT count 14 last night from 5. 08/05 Patient s/p transfusion 2u PRBC and 1u PLT since yesterday. Afebrile. PLT count 16 last night. 08/06 Patient seems confused and agitated this morning however he is awake and oriented to time and place. Afebrile. 08/07 Patient is lying in bed in NAD. PLT 28 this morning. 08/08: Resting in bed and somewhat confused and depressed that his platelets continue to drop. Plates were 14 this morning. He will remain stable. Tolerating diet. 08/09: Resting in bed. Less confused this a.m. Complaining of hematomas from blood draws. Being transfused 1 PRBC and 1 platelets today. Received IVIG yesterday at this hospital does not have RhoGam available 08/10: more somnolent today, but non-focal. still arouses to voice and is appropriate. more fatigued today. hgb stable. abg normal. obtained non- contrasted head CT given severe thrombocytopenia: negative for acute bleed. plt down to 20k today: giving 1 unit. ROS otherwise negative except for fatigue. SUBJECTIVE 08/16: Halicat called at 6 AM to room 236 secondary to acute altered mental status/worsening hypoxia on BiPAP. Patient has minimal response. Chest x-ray revealed no acute cardiopulmonary findings. Due to altered mental status and hypotension decision made to orotracheally intubate. Judith was notified. She will see her . Currently on norepinephrine drip to maintain mean artery pressure greater than 65. When stabilized, CT brain will be performed along with multiple laboratories. Left IJ CVL and left femoral arterial line have been placed. 08/17: Rapid and aggressive resuscitation by Dr. Alvarado yesterday has reversed a profound lactic acidosis and improved the patient's hemodynamic instability. Staph bacteremia is prevalent and the source is unclear. Endocarditis is a high likelihood. The patient remains in critically ill condition and will have a tough time surviving this disease process. We will look to the family and palliative care service today to help guide us as to the continued aggressiveness of the resuscitation. Objective Vital Signs / I&O: Vital Signs 08/16/18 07:58 08/16/18 07:59 08/16/18 08:00 Temperature 98.7 F Pulse Rate 144 H 144 H 144 H Respiratory Rate 17 17 18 Blood Pressure 117/70 119/65 Pulse Oximetry 100 100 100 08/16/18 08:01 08/16/18 08:02 08/16/18 08:03 Temperature Pulse Rate 144 H 144 H 145 H Respiratory Rate 22 16 17 Blood Pressure 114/60 110/58 L 113/58 L Pulse Oximetry 100 100 100 08/16/18 08:04 08/16/18 08:05 08/16/18 08:06 Temperature Pulse Rate 145 H 145 H 146 H Respiratory Rate 17 17 20 Blood Pressure 106/58 L 105/55 L 95/55 L Pulse Oximetry 100 100 100 08/16/18 08:07 08/16/18 08:08 08/16/18 08:09 Temperature Pulse Rate 146 H 146 H 146 H Respiratory Rate 16 16 16 Blood Pressure 86/52 L 86/53 L 92/55 L Pulse Oximetry 100 100 100 08/16/18 08:10 08/16/18 09:00 08/16/18 09:25 Temperature Pulse Rate 145 H 139 H 143 H Respiratory Rate 16 19 23 Blood Pressure 92/54 L Pulse Oximetry 100 96 100 08/16/18 10:00 08/16/18 10:23 08/16/18 11:00 Temperature Pulse Rate 127 H 103 H 148 H Respiratory Rate 22 23 23 Blood Pressure 136/70 Pulse Oximetry 98 100 100 08/16/18 11:45 08/16/18 11:48 08/16/18 12:00 Temperature 98.9 F Pulse Rate 146 H 147 H Respiratory Rate 37 H 35 H Blood Pressure 146/60 H 116/64 Pulse Oximetry 100 100 99 08/16/18 13:00 08/16/18 13:12 08/16/18 14:00 Temperature Pulse Rate 148 H 147 H 148 H Respiratory Rate 21 17 17 Blood Pressure Pulse Oximetry 100 100 08/16/18 14:32 08/16/18 14:40 08/16/18 15:00 Temperature Pulse Rate 142 H 139 H 92 H Respiratory Rate 24 23 21 Blood Pressure 66/40 L 64/43 L Pulse Oximetry 100 100 100 08/16/18 15:03 08/16/18 16:00 08/16/18 16:38 Temperature 98.3 F Pulse Rate 94 H 100 H Respiratory Rate 21 22 21 Blood Pressure 119/61 116/52 L Pulse Oximetry 100 100 100 08/16/18 16:56 08/16/18 17:00 08/16/18 18:00 Temperature Pulse Rate 106 H 96 H 94 H Respiratory Rate 23 19 21 Blood Pressure Pulse Oximetry 100 100 08/16/18 19:00 08/16/18 19:54 08/16/18 20:00 Temperature 98.4 F Pulse Rate 89 86 89 Respiratory Rate 22 20 20 Blood Pressure Pulse Oximetry 100 100 100 08/16/18 21:00 08/16/18 22:00 08/16/18 23:00 Temperature Pulse Rate 81 80 78 Respiratory Rate 17 17 16 Blood Pressure Pulse Oximetry 99 99 99 08/17/18 00:00 08/17/18 00:18 08/17/18 01:18 Temperature 98.4 F Pulse Rate 75 75 Respiratory Rate 16 16 16 Blood Pressure Pulse Oximetry 99 100 08/17/18 03:32 08/17/18 04:00 08/17/18 04:08 Temperature 98.4 F Pulse Rate 81 77 Respiratory Rate 16 16 16 Blood Pressure Pulse Oximetry 100 97 Intake & Output 08/16/18 08/17/18 08/17/18 18:59 06:59 18:59 Intake Total 805 / 805 700 / 700 Output Total 627 / 627 1800 / 1800 Balance 178 / 178 -1100 / -1100 Weight 82.9 kg Intake: IV 805 / 805 700 / 700 Neosynephrine Inj 160 MG In NS 500 / 500 Inj 484 ML @ 40 MCG/MIN 7.5 mls /hr IV.CONT TITRATE PRN Rx#: [id number] Pitressin Inj 40 UNIT In NS Inj 100 / 100 98 ML @ 0.04 UNITS/MIN 6 mls/ hr IV.CONT CONT MERON Rx#: [id number] Cordarone Inj 150 MG In D5W Inj 100 / 100 97 ML @ 100 mls/hr IV.SIG ONCE ONE Rx#:[id number] Levophed-Dextrose 4 mg/250 ml 250 / 250 Drip 4 mg In 250 ml @ 0 mls/hr IV.SIG .STK-MED ONE Rx#: [id number] Ancef Inj 1,000 MG In NS Inj 200 / 200 100 / 100 100 ML @ 200 mls/hr IV.SIG Q8H MERON Rx#:[id number] Output: Urine 625 / 625 1800 / 1800 Urine/Stool Mix 2 / 2 Other: # Incontinent Voids 4 Date of Last Bowel Movement 08/15/18 # Bowel Movements 2 1 Result Diagrams: 08/17/18 05:10 08/17/18 05:10 Objective Remarks: GENERAL: Patient is 83 yo lying in bed currently orotracheally intubated SKIN: Warm and dry. Multiple ecchymoses bilateral upper extremities HEAD: Normocephalic. EYES: No scleral icterus. No injection or drainage. Pupils are about 2 mm bilaterally and reactive. NECK: Supple, trachea midline. No JVD. Left IJ CVL is clean dry and intact CARDIOVASCULAR: Regular rhythm with frequent premature beat S1, S2 predose 4. No murmur or rub, no JVD RESPIRATORY: Good bilateral air entry on mechanical ventilation. Scattered rhonchi and some mobile secretions. GASTROINTESTINAL: Abdomen soft, non-tender, nondistended. No guarding. Bowel sounds present. MUSCULOSKELETAL: 1+ bilateral lower extremity peripheral edema. Left femoral arterial line, no hematoma Neuro: Sedated and ventilated. Able to move all 4 extremities spontaneously.. Assessment and Plan - Assessment and Plan Plan: Neuro/Psych: Acute encephalopathy Currently on propofol/fentanyl drips for sedation/analgesia while intubated Goal of RA SS -2 Daily sedation vacation Check CT brain when clinically stable CT brain 08/10: negative acute bleed Acetaminophen 650 q6h as needed fever CV: Lactic acidosis Severe sepsis Acute systolic heart failure History of wide complex tachycardia Atrial flutter with 2-1 aberrancy Atherosclerotic vascular disease Currently on norepinephrine drip at 20mcg/min to maintain mean arterial pressure greater than equal to 65 Check CVP Serial lactates until cleared. Currently greater than 5 Monitor HR and BP keep MAP>65mmHg 08/03 Echo showed severe LV dysfunction with EF 30-35% 08/14 echocardiogram revealed EF 30-35%. Severe LV dysfunction. PA P 34 mmHg. Question mitral valve lesion of posterior leaflet With hypotension will hold lisinopril 2.5mg daily and carvedilol 3.125mg BID. Not a candidate for ASA or systemic anticoagulation due to severe thrombocytopenia Cards has intermittently followed-Dr. Nation Not a candidate for anticoagulation secondary to severe thrombocytopenia Resp: Acute hypoxic hypercapnic respiratory failure [facility] / Ventilator bundle Albuterol/ipratropium aerosols every 4 hours with albuterol aerosols every 2 hours as needed dyspnea Spontaneous breathing trials when clinically indicated Follow-up chest x-ray and ABG post intubation Gas exchange acceptable this morning GI: ? GI bleed Proctitis per CT Hypoalbuminemia/moderate protein calorie malnutrition Cholelithiasis Hiatal hernia CT abdomen/pelvis revealed on 08/02 circumcision wall thickening of the rectum question proctitis. Atherosclerotic vessels. Cholelithiasis. Left renal cyst. Cirrhotic liver. Hemoglobin has remained stable. Pantoprazole 40 mg IV twice daily for GI prophylaxis Docusate serum/senna 1 tablet twice daily for bowel regimen along with polythene glycol centigrams daily Check liver function test, amylase and lipase now GI has followed recommend colonoscopy when platelet count has recovered OGT to LIWS start trickle feeds with Glucerna 1.5 if able 20 cc an hour Start Glucerna 1.5 : Hx Prostate ca s/p radiation tx. Acute urinary retention Currently [place] condom catheter. Currently holding while intubated tamsulosin 0.4 mg daily Endo: Acute hyperglycemia History of diabetes mellitus Sliding scale insulin Accu-Cheks to maintain euglycemia/aspart insulin every 4 hours Holding insulin detemir 18 units twice daily while n.p.o. Renal: Acute kidney injury Exophytic complex cystic lesion arising from the lower pole the left kidney measuring 6.5 x 5.1 cm, We will check renal ultrasound and urine electrolytes and eosinophils stat Monitor urine output Accurate I's and O's Heme: Leukocytosis Normocytic anemia ITP Severe thrombocytopenia Followed by hematology. Has received 2 episodes of IV IVIG for ITP. On 08/04 and 10/08 Currently on romiplostim 89 mcg subcu weekly for chronic ITP related thrombocytopenia. On prednisone 50 mg by tube daily per hematology. Has been transfused 6 PRBCs and 6 pack platelets since admission ID: MRSA blood cultures +08/13 Currently on vancomycin. And cefazolin Infectious disease actually following. Recommended YANETH when/if clinically stable to evaluate mitral valve. Blood cultures 07/2144+ for gram-positive cocci. Urine [id number] /[id number] /blood cultures 08/15 pending. FEN: Hypermagnesia Replace electrolytes as clinically indicated MSK: Multiple right rib fractures Cervical degenerative disc disease. CT C-spine degenerative disc change at C5-C6 with broad-based disc osteophyte complex with mass effect on the anterior thecal sac. This comes in close contact with the anterior cord which is poorly visualized. Mild anterior spondylolisthesis of C4 on C5 approximately 2 mm. There is mild retrolisthesis of C5 on C6. Mild disc osteophyte complex at C3-4. Narrowing of the left neural foramina at C2-3 and C3-4 levels as well as narrowing of the right neural foramina at C5-6. Multiple right-sided rib fractures like old seen on CT M/pelvis 08/02. Physical therapy evaluate and treat Access -Left IJ CVL day 2 placed 08/16 -Left femoral arterial line day 1 placed 08/16 Prophylaxis -GI -pantoprazole -DVT -SCD/pharmacological prophylaxis contraindicated with severe thrombocytopenia Overall impression: Patient remains critically ill and septic shock and hemodynamically unstable. He is still requiring vasopressor support albeit at a lesser dose. Overall prognosis remains quite poor and we will need help from the palliative care service and family regarding the ongoing aggressiveness of our attempted resuscitation. Critical care 45 minutes aside from procedures.
[2018-08-17] MEDS: Nystatin/Diphenhydramine/Lidocaine Mouthwash (Adult) 120 ML Botttle SWISH-SWAL SCH ×4 (08:23→20:03)
[2018-08-17] MEDS: Senna/Docusate Sodium 8.6/50 MG Tablet PO SCH ×2 (08:24→20:03)
[2018-08-17] MEDS: Polyethylene Glycol 3350 17 GM Packet PO SCH (08:24)
[2018-08-17] MEDS: Chlorhexidine 0.12% Oral Kit 15 ML UDC OROPHARYNG SCH ×2 (08:41→20:04)
[2018-08-17] MEDS: Carboxymethylcellulose 0.5% Opth Drops 15 ML Bottle EACH EYE SCH ×2 (08:42→20:04)
[2018-08-17] MEDS: Pantoprazole Inj 40 MG Vial IV.PUSH SCH ×2 (08:42→20:04)
[2018-08-17 09:45] LABS: Toxic Granulation 1+
--- NOTE | 2018-08-17 12:04 | P.PNID ---
Subjective Remarks: Patient remains on the ventilator. Appears lethargic. at bedside. Afebrile. Currently on norepinephrine 12 micrograms. White blood cell count is higher. Culture from 08/16/2018 has gram-positive cocci in 1 bottle. Blood culture from 08/15 has staph aureus cocci in all 4 bottles. Urine culture 08/14 has staph aureus. Previous blood culture from 08/13 has MSSA This is an 83-year-old white male who was admitted to the hospital on 08/02/2018 with GI bleed. He was noted to have profound thrombocytopenia. 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 His white blood cell count increased from 6.9-14.7 on 08/09/2018 and has steadily been climbing and today it is 19.2. The patient has been lethargic. He was transferred from Intensive Care Unit 1 day ago. His platelet count had increased to 50,000 on 08/09/2018 and it is decreasing and today it is 22,000. The patient is responsive, but feels tired. He appears lethargic. He complains of headache and pain in the elbow joints. He had no fever. Blood cultures were taken on 08/13/2018 and all 4 bottles have gram-positive cocci. The patient has had peripheral IV catheters. ID consulted for positive blood cultures. Antibiotics: Cefazolin Lines: Left internal jugular catheter intact. Past Medical History: PAST MEDICAL HISTORY: Diabetes mellitus, psoriasis, left tibia/fibula fracture, prostate cancer. Allergies/Adverse Reactions: Allergies No Known Allergies Allergy (Verified 08/02/18 03:15) Objective Vital Signs 08/16/18 12:00 08/16/18 13:00 08/16/18 13:12 Temperature 98.9 F Pulse Rate 147 H 148 H 147 H Respiratory Rate 35 H 21 17 Blood Pressure 116/64 Pulse Oximetry 99 100 08/16/18 14:00 08/16/18 14:32 08/16/18 14:40 Temperature Pulse Rate 148 H 142 H 139 H Respiratory Rate 17 24 23 Blood Pressure 66/40 L 64/43 L Pulse Oximetry 100 100 100 08/16/18 15:00 08/16/18 15:03 08/16/18 16:00 Temperature 98.3 F Pulse Rate 92 H 94 H 100 H Respiratory Rate 21 21 22 Blood Pressure 119/61 116/52 L Pulse Oximetry 100 100 100 08/16/18 16:38 08/16/18 16:56 08/16/18 17:00 Temperature Pulse Rate 106 H 96 H Respiratory Rate 21 23 19 Blood Pressure Pulse Oximetry 100 100 08/16/18 18:00 08/16/18 19:00 08/16/18 19:54 Temperature Pulse Rate 94 H 89 86 Respiratory Rate 21 22 20 Blood Pressure Pulse Oximetry 100 100 100 08/16/18 20:00 08/16/18 21:00 08/16/18 22:00 Temperature 98.4 F Pulse Rate 89 81 80 Respiratory Rate 20 17 17 Blood Pressure Pulse Oximetry 100 99 99 08/16/18 23:00 08/17/18 00:00 08/17/18 00:18 Temperature 98.4 F Pulse Rate 78 75 75 Respiratory Rate 16 16 16 Blood Pressure Pulse Oximetry 99 99 08/17/18 01:18 08/17/18 03:32 08/17/18 04:00 Temperature 98.4 F Pulse Rate 81 77 Respiratory Rate 16 16 16 Blood Pressure Pulse Oximetry 100 100 08/17/18 04:08 08/17/18 08:00 08/17/18 08:58 Temperature 96.8 F L Pulse Rate 66 66 Respiratory Rate 16 12 14 Blood Pressure Pulse Oximetry 97 100 08/17/18 11:28 Temperature Pulse Rate 70 Respiratory Rate 14 Blood Pressure Pulse Oximetry 99 Intake & Output 08/16/18 08/17/18 08/17/18 18:59 06:59 18:59 Intake Total 805 / 805 700 / 700 1100 / 1100 Output Total 627 / 627 1800 / 1800 Balance 178 / 178 -1100 / -1100 1100 / 1100 Weight 82.9 kg Intake: IV 805 / 805 700 / 700 1100 / 1100 Neosynephrine Inj 160 MG In NS 500 / 500 Inj 484 ML @ 40 MCG/MIN 7.5 mls /hr IV.CONT TITRATE PRN Rx#: [id number] Diprivan 1000 mg/100 ml Inj 1, 0 / 0 000 mg In 100 ml @ 5 MCG/KG/MIN 2.508 mls/hr IV.CONT TITRATE PRN Rx#:[id number] Pitressin Inj 40 UNIT In NS Inj 100 / 100 98 ML @ 0.04 UNITS/MIN 6 mls/ hr IV.CONT CONT MERON Rx#: [id number] Cordarone Inj 150 MG In D5W Inj 100 / 100 97 ML @ 100 mls/hr IV.SIG ONCE ONE Rx#:[id number] Levophed-Dextrose 4 mg/250 ml 250 / 250 Drip 4 mg In 250 ml @ 0 mls/hr IV.SIG .STK-MED ONE Rx#: [id number] NS Inj 1,000 ML @ Wide Open IV. 1000 / 1000 SIG BOLUS ONE Rx#:[id number] Ancef Inj 1,000 MG In NS Inj 200 / 200 100 / 100 100 / 100 100 ML @ 200 mls/hr IV.SIG Q8H [facility] Rx#:[id number] Output: Urine 625 / 625 1800 / 1800 Urine/Stool Mix 2 / 2 Other: # Incontinent Voids 4 Date of Last Bowel Movement 08/15/18 # Bowel Movements 2 1 08/16/18 19:11 Sputum - Endotracheal Gram Stain - Final 08/16/18 19:11 Sputum - Endotracheal Sputum Culture - Pending 08/16/18 14:30 Blood - Peripheral Aerobic Blood Culture - Preliminary gram positive cocci 08/16/18 14:30 Blood - Peripheral Anaerobic Blood Culture - Preliminary No growth in 1 day 08/15/18 11:03 Blood - Peripheral Aerobic Blood Culture - Final Staphylococcus aureus 08/15/18 11:03 Blood - Peripheral Anaerobic Blood Culture - Final Staphylococcus aureus 08/15/18 11:09 Blood - Peripheral Aerobic Blood Culture - Final Staphylococcus aureus 08/15/18 11:09 Blood - Peripheral Anaerobic Blood Culture - Final Staphylococcus aureus 08/14/18 21:47 Clean Catch Urine Urine Culture - Final Staphylococcus aureus 08/13/18 09:11 Blood - Peripheral Aerobic Blood Culture - Final Staphylococcus aureus 08/13/18 09:11 Blood - Peripheral Anaerobic Blood Culture - Final Staphylococcus aureus 08/13/18 09:17 Blood - Peripheral Aerobic Blood Culture - Final Staphylococcus aureus 08/13/18 09:17 Blood - Peripheral Anaerobic Blood Culture - Final Staphylococcus aureus Lab - Hematology Results 08/16/18 08/17/18 06:00 05:10 WBC 14.8 H 21.5 H RBC 3.31 L 3.11 L Hgb 9.3 L 8.7 L Hct 28.9 L 26.2 L MCV 87.3 84.4 MCH 28.0 28.1 MCHC 32.1 33.3 RDW 17.6 H 17.8 H Plt Count 27 L 39 L D MPV 13.6 H 11.4 H Prelim Diff (Auto) Slide review pending Slide review pending Neut % (Auto) 94.3 H 94.0 H Lymph % (Auto) 2.5 L 2.7 L [place] % (Auto) 3.1 3.2 Eos % (Auto) 0.0 0.0 Baso % (Auto) 0.1 0.1 Neut # (Auto) 13.9 H 20.2 H Lymph # (Auto) 0.4 L 0.6 L [place] # (Auto) 0.5 0.7 Eos # (Auto) 0.0 0.0 Baso # (Auto) 0.0 0.0 WBC Differential Manual diff final . Diff Scan Auto diff confirmed Seg Neuts % (Manual) 82 H Band Neuts % (Manual) 17 H Monocytes % (Manual) 1 Abs Neuts (Manual) 14.7 H Nucleated RBCs/100 WBC 1 H Differential Comment . . Toxic Granulation 1+ H 1+ H Platelet Estimate Low L Platelet Morphology Normal Lab - Chemistry Results 08/15/18 08/15/18 08/15/18 06:15 06:15 13:12 Sodium Potassium Chloride Carbon Dioxide Anion Gap BUN Creatinine Estimated GFR POC Glucose Random Glucose Lactic Acid 5.6 H* Calcium Phosphorus Magnesium Total Bilirubin Direct Bilirubin Indirect Bilirubin AST ALT Alkaline Phosphatase Ammonia Total Creatine Kinase Troponin I Total Protein Albumin Amylase 302 H Lipase Procalcitonin TSH 0.023 L Free T4 Free T3 Total T3 08/15/18 08/15/18 08/16/18 16:59 19:57 05:37 Sodium Potassium Chloride Carbon Dioxide Anion Gap BUN Creatinine Estimated GFR POC Glucose 190 H 199 H 214 H Random Glucose Lactic Acid Calcium Phosphorus Magnesium Total Bilirubin Direct Bilirubin Indirect Bilirubin AST ALT Alkaline Phosphatase Ammonia Total Creatine Kinase Troponin I Total Protein Albumin Amylase Lipase Procalcitonin TSH Free T4 Free T3 Total T3 08/16/18 08/16/18 08/16/18 06:00 06:00 09:10 Sodium 145 Potassium 3.9 Chloride 108 H Carbon Dioxide 23.5 Anion Gap 14 BUN 99 H Creatinine 1.62 H Estimated GFR 41 L POC Glucose Random Glucose 203 H Lactic Acid 5.9 H* Calcium 7.7 L Phosphorus 5.0 H Magnesium 3.1 H D Total Bilirubin 1.3 H Direct Bilirubin 0.7 H Indirect Bilirubin 0.6 AST 29 ALT 36 Alkaline Phosphatase 89 Ammonia Total Creatine Kinase 244 Troponin I 0.16 H Total Protein 6.7 D Albumin 1.6 L 1.7 L Amylase 395 H Lipase 78 Procalcitonin TSH Free T4 1.55 H Free T3 Total T3 08/16/18 08/16/18 08/16/18 09:10 09:10 12:41 Sodium Potassium Chloride Carbon Dioxide Anion Gap BUN Creatinine Estimated GFR POC Glucose 356 H Random Glucose Lactic Acid Calcium Phosphorus Magnesium Total Bilirubin Direct Bilirubin Indirect Bilirubin AST ALT Alkaline Phosphatase Ammonia 44 H Total Creatine Kinase Troponin I Total Protein Albumin Amylase Lipase Procalcitonin 3.32 H TSH Free T4 Free T3 Total T3 08/16/18 08/16/18 08/16/18 12:42 16:03 16:15 Sodium Potassium Chloride Carbon Dioxide Anion Gap BUN Creatinine Estimated GFR POC Glucose 305 H 279 H Random Glucose Lactic Acid 5.7 H* Calcium Phosphorus Magnesium Total Bilirubin Direct Bilirubin Indirect Bilirubin AST ALT Alkaline Phosphatase Ammonia Total Creatine Kinase Troponin I Total Protein Albumin Amylase Lipase Procalcitonin TSH Free T4 Free T3 Total T3 08/16/18 08/16/18 08/16/18 16:15 16:15 19:54 Sodium Potassium Chloride Carbon Dioxide Anion Gap BUN Creatinine Estimated GFR POC Glucose 248 H Random Glucose Lactic Acid Calcium Phosphorus Magnesium Total Bilirubin Direct Bilirubin Indirect Bilirubin AST ALT Alkaline Phosphatase Ammonia Total Creatine Kinase Troponin I 0.18 H Total Protein Albumin Amylase Lipase Procalcitonin TSH Free T4 Free T3 1.03 L Total T3 41 L 08/16/18 08/17/18 08/17/18 20:00 00:00 04:02 Sodium Potassium Chloride Carbon Dioxide Anion Gap BUN Creatinine Estimated GFR POC Glucose 181 H 135 H Random Glucose Lactic Acid 3.6 H Calcium Phosphorus Magnesium Total Bilirubin Direct Bilirubin Indirect Bilirubin AST ALT Alkaline Phosphatase Ammonia Total Creatine Kinase Troponin I Total Protein Albumin Amylase Lipase Procalcitonin TSH Free T4 Free T3 Total T3 08/17/18 08/17/18 08/17/18 05:10 05:10 08:14 Sodium 150 H Potassium 3.5 Chloride 116 H D Carbon Dioxide 24.8 Anion Gap 9 BUN 96 H Creatinine 1.46 H Estimated GFR 46 L POC Glucose 184 H Random Glucose 147 H Lactic Acid 2.1 H Calcium 8.1 L Phosphorus 3.7 D Magnesium 2.9 H Total Bilirubin 0.9 Direct Bilirubin Indirect Bilirubin AST 48 H ALT 40 Alkaline Phosphatase 89 Ammonia Total Creatine Kinase Troponin I Total Protein 6.2 L Albumin 1.4 L Amylase Lipase Procalcitonin TSH 0.024 L Free T4 Free T3 Total T3 08/17/18 08/17/18 09:32 11:06 Sodium Potassium Chloride Carbon Dioxide Anion Gap BUN Creatinine Estimated GFR POC Glucose 213 H Random Glucose Lactic Acid 2.0 Calcium Phosphorus Magnesium Total Bilirubin Direct Bilirubin Indirect Bilirubin AST ALT Alkaline Phosphatase Ammonia Total Creatine Kinase Troponin I Total Protein Albumin Amylase Lipase Procalcitonin TSH Free T4 Free T3 Total T3 Imaging: ITS Impressions Abdomen/Pelvis CT 08/02/18 04:01 CONCLUSION: 1. 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 2. Nonacute findings include severe atherosclerotic disease, cholelithiasis, stable complex cystic lesion of the left kidney measuring 6.5 cm, and cirrhotic liver. Humerus CT 08/11/18 00:00 CONCLUSION: 1. Nonacute appearing right-sided rib fractures. 2. No evidence for humerus fracture. 3. Note is made of ascites in the upper abdomen. Cervical Spine CT 08/12/18 00:00 CONCLUSION: 1. Degenerative disc change at C5-C6 with broad-based disc osteophyte complex with mass effect on the anterior thecal sac. This comes in close contact with the anterior cord which is poorly visualized. 2. Mild anterior spondylolisthesis of C4 on C5 approximately 2 mm. There is mild retrolisthesis of C5 on C6. 3. Mild disc osteophyte complex at C3-4. 4. Narrowing of the left neural foramina at C2-3 and C3-4 levels as well as narrowing of the right neural foramina at C5-6. Neck Ultrasound 08/15/18 00:00 CONCLUSION: 1. Unremarkable study. Abdomen/Bladder Ultrasound 08/16/18 00:00 CONCLUSION: 1. Limited examination secondary to bowel gas. 2. No evidence for obstructive uropathy. 3. Mildly echogenic kidneys consistent with medical renal disease. 4. 4.9 cm possible cyst in the inferior pole the right kidney which was not noted on recent CT exam and not demonstrated on sagittal images. Uncertain if this is artifactual. 5. Redemonstration of complex 4.4 cm cyst in the inferior pole of the left kidney. Head CT 08/16/18 00:00 CONCLUSION: 1. Senescent changes without acute intracranial abnormality. . Soft Tissue Neck CT 08/16/18 00:00 CONCLUSION: 1. Asymmetrical enlargement of the left parotid gland with mild diffuse stranding consistent with mild left parotiditis. 2. Bulky bilateral carotid artery plaque. Chest X-Ray 08/17/18 06:00 CONCLUSION: Cardiomegaly. Basilar areas of mild consolidation or atelectasis. Physical Exam: PHYSICAL EXAMINATION: GENERAL: Awakens easily. No distress. HEENT: Pupils reactive to light. No icterus. Oropharynx intubated. NECK: Obese, Supple without adenopathy. LUNGS: Coarse bilateral rhonchi. HEART: Regular S1, S2. No murmurs heard. ABDOMEN: Bowel sounds present. Soft, no tenderness appreciated. EXTREMITIES: No clubbing, cyanosis or edema. Ecchymotic lesions at the upper extremities. SKIN: No diffuse rash. NEUROLOGIC: No gross focal finding. Assessment and Plan - Plan IMPRESSION: 1. Bacteremia due to gram-positive cocci; 4/4 bottles positive, non-methicillin staph aureus. Culture still positive. Urine culture also had staph aureus. Possible infection originated from the urine system. questionable etiology. 2D echocardiogram suggest possible vegetation on mitral valve. This makes possibility of endocarditis likely Particularly with continued positive blood culture. 2. Idiopathic thrombocytopenic purpura status post treatment. 3. Leukocytosis. 4. History of prostate cancer. 5. Acute renal insufficiency. 6. Acute respiratory failure. Intubated. RECOMMENDATIONS: 1. Change Cefazolin to Oxacillin. 2. Monitor the repeat blood cultures. 3. Monitor clinical status 4. Monitor sputum culture. 5. Monitor the white blood cell count.
--- NOTE | 2018-08-17 13:15 | P.PNPAL ---
Reason for Visit Reason for visit: a. To assist with evaluation and management of symptoms including: Dyspnea, pain b. To assist medical decision maker(s) with: better understanding of current medical conditions; weighing benefits/burdens of medical treatment options; making medical treatment decisions. Subjective Subjective/Interval History: Follow up medically necessary for further clarification of goals of care. Patient remains intubated, sedated on mechanical ventilation. Neosynephrine infusion has been titrated down to 200mcg/min and Levophed is now infusing at 12mcg/min. Remains on Vasopressin at o.04units/min and was started on Fentanyl infusion at 50mcg/hr. Meeting with patient`s at bedside. Patient`s states that she does not want patient to continue suffering and she has decided to compassionately withdraw patient from life support. She is waiting for one of patient`s sons who has indicated that he would want to come and visit with patient but he has not yet told her anything further regarding his travelling plans from [place] and possible arrival date. Introduced hospice philosophy and benefits. Patient`s would like to transition patient to comfort care only through hospice services at time of compassionate withdrawal. She mentioned that she would like patient to be kept in the hospital under hospice services and not transferred anywhere else. Case discussed with Dr. Monahan and bedside RN. . Family/Friend Interactions: See interval note . Advance Directives Living Will: Completed, but not made available Durable Power of X Ray Nurse: Completed, but not made available Health Care Surrogate Name and Number: HCP: Spouse- Linda Butterfield-[phone] Significant change in goals:: Family is planning on proceeding with compassionate withdrawal from life support , after 1 of patient's sons comes to visit with him from [place]. . Objective Vital Signs: Vital Signs 08/16/18 13:12 08/16/18 14:00 08/16/18 14:32 Temperature Pulse Rate 147 H 148 H 142 H Respiratory Rate 17 17 24 Blood Pressure 66/40 L Pulse Oximetry 100 100 08/16/18 14:40 08/16/18 15:00 08/16/18 15:03 Temperature Pulse Rate 139 H 92 H 94 H Respiratory Rate 23 21 21 Blood Pressure 64/43 L 119/61 Pulse Oximetry 100 100 100 08/16/18 16:00 08/16/18 16:38 08/16/18 16:56 Temperature 98.3 F Pulse Rate 100 H 106 H Respiratory Rate 22 21 23 Blood Pressure 116/52 L Pulse Oximetry 100 100 08/16/18 17:00 08/16/18 18:00 08/16/18 19:00 Temperature Pulse Rate 96 H 94 H 89 Respiratory Rate 19 21 22 Blood Pressure Pulse Oximetry 100 100 100 08/16/18 19:54 08/16/18 20:00 08/16/18 21:00 Temperature 98.4 F Pulse Rate 86 89 81 Respiratory Rate 20 20 17 Blood Pressure Pulse Oximetry 100 100 99 08/16/18 22:00 08/16/18 23:00 08/17/18 00:00 Temperature 98.4 F Pulse Rate 80 78 75 Respiratory Rate 17 16 16 Blood Pressure Pulse Oximetry 99 99 99 08/17/18 00:18 08/17/18 01:18 08/17/18 03:32 Temperature Pulse Rate 75 81 Respiratory Rate 16 16 16 Blood Pressure Pulse Oximetry 100 08/17/18 04:00 08/17/18 04:08 08/17/18 08:00 Temperature 98.4 F 96.8 F L Pulse Rate 77 66 Respiratory Rate 16 16 12 Blood Pressure Pulse Oximetry 100 97 08/17/18 08:58 08/17/18 11:00 08/17/18 11:15 Temperature Pulse Rate 66 77 68 Respiratory Rate 14 14 12 Blood Pressure Pulse Oximetry 100 100 99 08/17/18 11:28 08/17/18 11:30 08/17/18 11:45 Temperature Pulse Rate 70 68 68 Respiratory Rate 14 12 12 Blood Pressure Pulse Oximetry 99 99 100 08/17/18 12:00 Temperature 96.9 F L Pulse Rate 70 Respiratory Rate 12 Blood Pressure Pulse Oximetry 100 Intake & Output 08/16/18 08/17/18 08/17/18 18:59 06:59 18:59 Intake Total 805 / 805 700 / 700 1100 / 1100 Output Total 627 / 627 1800 / 1800 Balance 178 / 178 -1100 / -1100 1100 / 1100 Weight 82.9 kg Intake: IV 805 / 805 700 / 700 1100 / 1100 Neosynephrine Inj 160 MG In NS 500 / 500 Inj 484 ML @ 40 MCG/MIN 7.5 mls /hr IV.CONT TITRATE PRN Rx#: [id number] Diprivan 1000 mg/100 ml Inj 1, 0 / 0 000 mg In 100 ml @ 5 MCG/KG/MIN 2.508 mls/hr IV.CONT TITRATE PRN Rx#:[id number] Pitressin Inj 40 UNIT In NS Inj 100 / 100 98 ML @ 0.04 UNITS/MIN 6 mls/ hr IV.CONT CONT MERON Rx#: [id number] Cordarone Inj 150 MG In D5W Inj 100 / 100 97 ML @ 100 mls/hr IV.SIG ONCE ONE Rx#:[id number] Levophed-Dextrose 4 mg/250 ml 250 / 250 Drip 4 mg In 250 ml @ 0 mls/hr IV.SIG .STK-MED ONE Rx#: [id number] NS Inj 1,000 ML @ Wide Open IV. 1000 / 1000 SIG BOLUS ONE Rx#:[id number] Ancef Inj 1,000 MG In NS Inj 200 / 200 100 / 100 100 / 100 100 ML @ 200 mls/hr IV.SIG Q8H MERON Rx#:[id number] Output: Urine 625 / 625 1800 / 1800 Urine/Stool Mix 2 / 2 Other: # Incontinent Voids 4 Date of Last Bowel Movement 08/15/18 # Bowel Movements 2 1 Physical Exam: CONSTITUTIONAL/GENERAL: This is an adequately nourished patient, in no apparent distress. TUBES/LINES/DRAINS: Orotracheal tube, OG tube, central line, femoral A-line, SKIN: Pale. No jaundice, rashes, or lesions. Ecchymoses on upper extremities. No wounds seen anteriorly. Skin temperature appropriate. Not diaphoretic. HEAD: Atraumatic. Normocephalic. EYES: Pupils round, reactive to light. No scleral icterus. No injection or drainage. Fundi not examined. ENT: Hearing grossly normal. Nose without bleeding or purulent drainage. Orotracheal tube & orogastric tube. Moist oral mucosa NECK: Trachea midline. Supple, nontender. CARDIOVASCULAR: Irregular rate and rhythm without murmurs, gallops, or rubs. No JVD. Peripheral pulses symmetric. RESPIRATORY/CHEST: Symmetric, unlabored respirations. Diminished breath sounds in bilateral lower lobes. GASTROINTESTINAL: Abdomen soft, non-tender, nondistended. No guarding. No bowel sounds present. GENITOURINARY: Without palpable bladder distension. Condom catheter MUSCULOSKELETAL: Extremities without clubbing, cyanosis, or edema. No joint tenderness or effusion noted. No calf tenderness. No mottling or clubbing. LYMPHATICS: Did not assess NEUROLOGICAL: Intubated and lightly sedated. Spontaneously moving all 4 extremities. Appears to be responding appropriately by nodding head and shaking head. PSYCHIATRIC: Intubated. Currently calm. Diagnostic Tests Laboratory: Laboratory Results - last 72 hr 08/14/18 08/14/18 08/14/18 14:03 14:03 16:10 WBC RBC Hgb Hct MCV MCH MCHC RDW Plt Count MPV Prelim Diff (Auto) Neut % (Auto) Lymph % (Auto) [place] % (Auto) Eos % (Auto) Baso % (Auto) Neut # (Auto) Lymph # (Auto) [place] # (Auto) Eos # (Auto) Baso # (Auto) WBC Differential Diff Scan Seg Neuts % (Manual) Band Neuts % (Manual) Monocytes % (Manual) Abs Neuts (Manual) Nucleated RBCs/100 WBC Differential Comment Toxic Granulation Toxic Vacuolation Platelet Estimate Platelet Morphology PT INR APTT Fibrinogen Puncture Site Patient Temperature O2 Saturation ABG pH ABG pCO2 ABG pO2 ABG HCO3 ABG O2 Content ABG Base Excess ABG Methemoglobin Abhijeet Test Hemoglobin Carboxyhemoglobin O2 Delivery Device Vent Setting Inspired O2 Critical Value Sodium Potassium Chloride Carbon Dioxide Anion Gap BUN Creatinine Estimated GFR POC Glucose 150 H Random Glucose Lactic Acid 7.0 H* Calcium Phosphorus Magnesium Iron TIBC % Saturation Ferritin Total Bilirubin Direct Bilirubin Indirect Bilirubin AST ALT Alkaline Phosphatase Ammonia Total Creatine Kinase Troponin I B-Natriuretic Peptide 376 H Total Protein Albumin Amylase Lipase Procalcitonin TSH Free T4 Free T3 Total T3 Urine Color Urine Clarity Urine pH Ur Specific [place] Urine Protein Urine Glucose (UA) Urine Ketones Urine Occult Blood Urine Nitrate Urine Bilirubin Urine Urobilinogen Ur Leukocyte Esterase Urine RBC Urine WBC Urine WBC Clumps Ur Squamous Epith Cells Urine Bacteria Urine Mucus Micro UA Comment Ur Microscopic Review Urine Culture Comments Urine Eosinophils Ur Random Creatinine Ur Random Sodium Random Vancomycin 08/14/18 08/14/18 08/14/18 20:02 21:03 21:47 WBC RBC Hgb Hct MCV MCH MCHC RDW Plt Count MPV Prelim Diff (Auto) Neut % (Auto) Lymph % (Auto) [place] % (Auto) Eos % (Auto) Baso % (Auto) Neut # (Auto) Lymph # (Auto) [place] # (Auto) Eos # (Auto) Baso # (Auto) WBC Differential Diff Scan Seg Neuts % (Manual) Band Neuts % (Manual) Monocytes % (Manual) Abs Neuts (Manual) Nucleated RBCs/100 WBC Differential Comment Toxic Granulation Toxic Vacuolation Platelet Estimate Platelet Morphology PT INR APTT Fibrinogen Puncture Site Patient Temperature O2 Saturation ABG pH ABG pCO2 ABG pO2 ABG HCO3 ABG O2 Content ABG Base Excess ABG Methemoglobin Abhijeet Test Hemoglobin Carboxyhemoglobin O2 Delivery Device Vent Setting Inspired O2 Critical Value Sodium Potassium Chloride Carbon Dioxide Anion Gap BUN Creatinine Estimated GFR POC Glucose 212 H Random Glucose Lactic Acid 6.4 H* Calcium Phosphorus Magnesium Iron TIBC % Saturation Ferritin Total Bilirubin Direct Bilirubin Indirect Bilirubin AST ALT Alkaline Phosphatase Ammonia Total Creatine Kinase Troponin I B-Natriuretic Peptide Total Protein Albumin Amylase Lipase Procalcitonin TSH Free T4 Free T3 Total T3 Urine Color Yellow Urine Clarity Hazy H Urine pH 6.0 Ur Specific [place] 1.012 Urine Protein Negative Urine Glucose (UA) 50 Urine Ketones Negative Urine Occult Blood Moderate H Urine Nitrate Negative Urine Bilirubin Negative Urine Urobilinogen Less than 2 Ur Leukocyte Esterase Large H Urine RBC 2 Urine WBC 48 H Urine WBC Clumps Rare H Ur Squamous Epith Cells <1 Urine Bacteria Occasional H Urine Mucus Few H Micro UA Comment Culture indicated Ur Microscopic Review Not Reportable Urine Culture Comments Culture indicated Urine Eosinophils Ur Random Creatinine Ur Random Sodium Random Vancomycin 08/15/18 08/15/18 08/15/18 06:15 06:15 06:15 WBC 18.0 H RBC 3.35 L Hgb 9.4 L Hct 29.2 L MCV 87.2 MCH 28.1 MCHC 32.3 RDW 17.4 H Plt Count 27 L MPV 11.5 H Prelim Diff (Auto) Manual diff required Neut % (Auto) Lymph % (Auto) [place] % (Auto) Eos % (Auto) Baso % (Auto) Neut # (Auto) Lymph # (Auto) [place] # (Auto) Eos # (Auto) Baso # (Auto) WBC Differential Manual diff final Diff Scan Seg Neuts % (Manual) 95 H Band Neuts % (Manual) 3 Monocytes % (Manual) 2 Abs Neuts (Manual) 17.6 H Nucleated RBCs/100 WBC Differential Comment . Toxic Granulation 2+ H Toxic Vacuolation Present H Platelet Estimate Low L Platelet Morphology Enlarged H PT INR APTT Fibrinogen Puncture Site Patient Temperature O2 Saturation ABG pH ABG pCO2 ABG pO2 ABG HCO3 ABG O2 Content ABG Base Excess ABG Methemoglobin Abhijeet Test Hemoglobin Carboxyhemoglobin O2 Delivery Device Vent Setting Inspired O2 Critical Value Sodium 141 Potassium 3.7 Chloride 105 Carbon Dioxide 23.5 Anion Gap 13 BUN 79 H Creatinine 1.43 H Estimated GFR 47 L POC Glucose Random Glucose 225 H D Lactic Acid 5.3 H* Calcium 7.8 L Phosphorus 4.2 Magnesium 2.5 Iron TIBC % Saturation Ferritin Total Bilirubin Direct Bilirubin Indirect Bilirubin AST ALT Alkaline Phosphatase Ammonia Total Creatine Kinase Troponin I B-Natriuretic Peptide Total Protein Albumin 1.8 L Amylase Lipase Procalcitonin TSH Free T4 Free T3 Total T3 Urine Color Urine Clarity Urine pH Ur Specific [place] Urine Protein Urine Glucose (UA) Urine Ketones Urine Occult Blood Urine Nitrate Urine Bilirubin Urine Urobilinogen Ur Leukocyte Esterase Urine RBC Urine WBC Urine WBC Clumps Ur Squamous Epith Cells Urine Bacteria Urine Mucus Micro UA Comment Ur Microscopic Review Urine Culture Comments Urine Eosinophils Ur Random Creatinine Ur Random Sodium Random Vancomycin 10.8 08/15/18 08/15/18 08/15/18 06:15 06:15 06:15 WBC RBC Hgb Hct MCV MCH MCHC RDW Plt Count MPV Prelim Diff (Auto) Neut % (Auto) Lymph % (Auto) [place] % (Auto) Eos % (Auto) Baso % (Auto) Neut # (Auto) Lymph # (Auto) [place] # (Auto) Eos # (Auto) Baso # (Auto) WBC Differential Diff Scan Seg Neuts % (Manual) Band Neuts % (Manual) Monocytes % (Manual) Abs Neuts (Manual) Nucleated RBCs/100 WBC Differential Comment Toxic Granulation Toxic Vacuolation Platelet Estimate Platelet Morphology PT INR APTT Fibrinogen Puncture Site Patient Temperature O2 Saturation ABG pH ABG pCO2 ABG pO2 ABG HCO3 ABG O2 Content ABG Base Excess ABG Methemoglobin Abhijeet Test Hemoglobin Carboxyhemoglobin O2 Delivery Device Vent Setting Inspired O2 Critical Value Sodium Potassium Chloride Carbon Dioxide Anion Gap BUN Creatinine Estimated GFR POC Glucose Random Glucose Lactic Acid Calcium Phosphorus Magnesium Iron 15 L TIBC 232 L % Saturation 6.5 L Ferritin 131 Total Bilirubin Direct Bilirubin Indirect Bilirubin AST ALT Alkaline Phosphatase Ammonia Total Creatine Kinase Troponin I B-Natriuretic Peptide 303 H Total Protein Albumin Amylase 302 H Lipase Procalcitonin TSH Free T4 Free T3 Total T3 Urine Color Urine Clarity Urine pH Ur Specific [place] Urine Protein Urine Glucose (UA) Urine Ketones Urine Occult Blood Urine Nitrate Urine Bilirubin Urine Urobilinogen Ur Leukocyte Esterase Urine RBC Urine WBC Urine WBC Clumps Ur Squamous Epith Cells Urine Bacteria Urine Mucus Micro UA Comment Ur Microscopic Review Urine Culture Comments Urine Eosinophils Ur Random Creatinine Ur Random Sodium Random Vancomycin 08/15/18 08/15/18 08/15/18 06:15 08:55 11:46 WBC RBC Hgb Hct MCV MCH MCHC RDW Plt Count MPV Prelim Diff (Auto) Neut % (Auto) Lymph % (Auto) [place] % (Auto) Eos % (Auto) Baso % (Auto) Neut # (Auto) Lymph # (Auto) [place] # (Auto) Eos # (Auto) Baso # (Auto) WBC Differential Diff Scan Seg Neuts % (Manual) Band Neuts % (Manual) Monocytes % (Manual) Abs Neuts (Manual) Nucleated RBCs/100 WBC Differential Comment Toxic Granulation Toxic Vacuolation Platelet Estimate Platelet Morphology PT INR APTT Fibrinogen Puncture Site Patient Temperature O2 Saturation ABG pH ABG pCO2 ABG pO2 ABG HCO3 ABG O2 Content ABG Base Excess ABG Methemoglobin Abhijeet Test Hemoglobin Carboxyhemoglobin O2 Delivery Device Vent Setting Inspired O2 Critical Value Sodium Potassium Chloride Carbon Dioxide Anion Gap BUN Creatinine Estimated GFR POC Glucose 240 H 250 H Random Glucose Lactic Acid Calcium Phosphorus Magnesium Iron TIBC % Saturation Ferritin Total Bilirubin Direct Bilirubin Indirect Bilirubin AST ALT Alkaline Phosphatase Ammonia Total Creatine Kinase Troponin I B-Natriuretic Peptide Total Protein Albumin Amylase Lipase Procalcitonin TSH 0.023 L Free T4 Free T3 Total T3 Urine Color Urine Clarity Urine pH Ur Specific [place] Urine Protein Urine Glucose (UA) Urine Ketones Urine Occult Blood Urine Nitrate Urine Bilirubin Urine Urobilinogen Ur Leukocyte Esterase Urine RBC Urine WBC Urine WBC Clumps Ur Squamous Epith Cells Urine Bacteria Urine Mucus Micro UA Comment Ur Microscopic Review Urine Culture Comments Urine Eosinophils Ur Random Creatinine Ur Random Sodium Random Vancomycin 08/15/18 08/15/18 08/15/18 13:12 16:59 19:57 WBC RBC Hgb Hct MCV MCH MCHC RDW Plt Count MPV Prelim Diff (Auto) Neut % (Auto) Lymph % (Auto) [place] % (Auto) Eos % (Auto) Baso % (Auto) Neut # (Auto) Lymph # (Auto) [place] # (Auto) Eos # (Auto) Baso # (Auto) WBC Differential Diff Scan Seg Neuts % (Manual) Band Neuts % (Manual) Monocytes % (Manual) Abs Neuts (Manual) Nucleated RBCs/100 WBC Differential Comment Toxic Granulation Toxic Vacuolation Platelet Estimate Platelet Morphology PT INR APTT Fibrinogen Puncture Site Patient Temperature O2 Saturation ABG pH ABG pCO2 ABG pO2 ABG HCO3 ABG O2 Content ABG Base Excess ABG Methemoglobin Abhijeet Test Hemoglobin Carboxyhemoglobin O2 Delivery Device Vent Setting Inspired O2 Critical Value Sodium Potassium Chloride Carbon Dioxide Anion Gap BUN Creatinine Estimated GFR POC Glucose 190 H 199 H Random Glucose Lactic Acid 5.6 H* Calcium Phosphorus Magnesium Iron TIBC % Saturation Ferritin Total Bilirubin Direct Bilirubin Indirect Bilirubin AST ALT Alkaline Phosphatase Ammonia Total Creatine Kinase Troponin I B-Natriuretic Peptide Total Protein Albumin Amylase Lipase Procalcitonin TSH Free T4 Free T3 Total T3 Urine Color Urine Clarity Urine pH Ur Specific [place] Urine Protein Urine Glucose (UA) Urine Ketones Urine Occult Blood Urine Nitrate Urine Bilirubin Urine Urobilinogen Ur Leukocyte Esterase Urine RBC Urine WBC Urine WBC Clumps Ur Squamous Epith Cells Urine Bacteria Urine Mucus Micro UA Comment Ur Microscopic Review Urine Culture Comments Urine Eosinophils Ur Random Creatinine Ur Random Sodium Random Vancomycin 08/16/18 08/16/18 08/16/18 01:15 05:37 05:39 WBC RBC Hgb Hct MCV MCH MCHC RDW Plt Count MPV Prelim Diff (Auto) Neut % (Auto) Lymph % (Auto) [place] % (Auto) Eos % (Auto) Baso % (Auto) Neut # (Auto) Lymph # (Auto) [place] # (Auto) Eos # (Auto) Baso # (Auto) WBC Differential Diff Scan Seg Neuts % (Manual) Band Neuts % (Manual) Monocytes % (Manual) Abs Neuts (Manual) Nucleated RBCs/100 WBC Differential Comment Toxic Granulation Toxic Vacuolation Platelet Estimate Platelet Morphology PT INR APTT Fibrinogen Puncture Site Right radial Right brachial Patient Temperature 98.6 98.6 O2 Saturation 92 95 ABG pH 7.46 H 7.46 H ABG pCO2 31 L 30 L ABG pO2 77 94 ABG HCO3 21 L 21 L ABG O2 Content 12.1 12.2 ABG Base Excess -1.9 -2.2 L ABG Methemoglobin 1.8 1.6 Abhijeet Test Present Hemoglobin 9.3 L 9.0 L Carboxyhemoglobin 1.4 1.1 O2 Delivery Device Bipap Bipap Vent Setting 10ipap/5epap Ipap 10/ epap 5 Inspired O2 50 50 Critical Value No No Sodium Potassium Chloride Carbon Dioxide Anion Gap BUN Creatinine Estimated GFR POC Glucose 214 H Random Glucose Lactic Acid Calcium Phosphorus Magnesium Iron TIBC % Saturation Ferritin Total Bilirubin Direct Bilirubin Indirect Bilirubin AST ALT Alkaline Phosphatase Ammonia Total Creatine Kinase Troponin I B-Natriuretic Peptide Total Protein Albumin Amylase Lipase Procalcitonin TSH Free T4 Free T3 Total T3 Urine Color Urine Clarity Urine pH Ur Specific [place] Urine Protein Urine Glucose (UA) Urine Ketones Urine Occult Blood Urine Nitrate Urine Bilirubin Urine Urobilinogen Ur Leukocyte Esterase Urine RBC Urine WBC Urine WBC Clumps Ur Squamous Epith Cells Urine Bacteria Urine Mucus Micro UA Comment Ur Microscopic Review Urine Culture Comments Urine Eosinophils Ur Random Creatinine Ur Random Sodium Random Vancomycin 08/16/18 08/16/18 08/16/18 06:00 06:00 06:00 WBC 14.8 H RBC 3.31 L Hgb 9.3 L Hct 28.9 L MCV 87.3 MCH 28.0 MCHC 32.1 RDW 17.6 H Plt Count 27 L MPV 13.6 H Prelim Diff (Auto) Slide review pending Neut % (Auto) 94.3 H Lymph % (Auto) 2.5 L [place] % (Auto) 3.1 Eos % (Auto) 0.0 Baso % (Auto) 0.1 Neut # (Auto) 13.9 H Lymph # (Auto) 0.4 L [place] # (Auto) 0.5 Eos # (Auto) 0.0 Baso # (Auto) 0.0 WBC Differential Manual diff final Diff Scan Seg Neuts % (Manual) 82 H Band Neuts % (Manual) 17 H Monocytes % (Manual) 1 Abs Neuts (Manual) 14.7 H Nucleated RBCs/100 WBC 1 H Differential Comment . Toxic Granulation 1+ H Toxic Vacuolation Platelet Estimate Low L Platelet Morphology Normal PT INR APTT Fibrinogen Puncture Site Patient Temperature O2 Saturation ABG pH ABG pCO2 ABG pO2 ABG HCO3 ABG O2 Content ABG Base Excess ABG Methemoglobin Abhijeet Test Hemoglobin Carboxyhemoglobin O2 Delivery Device Vent Setting Inspired O2 Critical Value Sodium 145 Potassium 3.9 Chloride 108 H Carbon Dioxide 23.5 Anion Gap 14 BUN 99 H Creatinine 1.62 H Estimated GFR 41 L POC Glucose Random Glucose 203 H Lactic Acid 5.9 H* Calcium 7.7 L Phosphorus 5.0 H Magnesium 3.1 H D Iron TIBC % Saturation Ferritin Total Bilirubin Direct Bilirubin Indirect Bilirubin AST ALT Alkaline Phosphatase Ammonia Total Creatine Kinase Troponin I B-Natriuretic Peptide Total Protein Albumin 1.6 L Amylase Lipase Procalcitonin TSH Free T4 1.55 H Free T3 Total T3 Urine Color Urine Clarity Urine pH Ur Specific [place] Urine Protein Urine Glucose (UA) Urine Ketones Urine Occult Blood Urine Nitrate Urine Bilirubin Urine Urobilinogen Ur Leukocyte Esterase Urine RBC Urine WBC Urine WBC Clumps Ur Squamous Epith Cells Urine Bacteria Urine Mucus Micro UA Comment Ur Microscopic Review Urine Culture Comments Urine Eosinophils Ur Random Creatinine Ur Random Sodium Random Vancomycin 08/16/18 08/16/18 08/16/18 08:14 09:10 09:10 WBC RBC Hgb Hct MCV MCH MCHC RDW Plt Count MPV Prelim Diff (Auto) Neut % (Auto) Lymph % (Auto) [place] % (Auto) Eos % (Auto) Baso % (Auto) Neut # (Auto) Lymph # (Auto) [place] # (Auto) Eos # (Auto) Baso # (Auto) WBC Differential Diff Scan Seg Neuts % (Manual) Band Neuts % (Manual) Monocytes % (Manual) Abs Neuts (Manual) Nucleated RBCs/100 WBC Differential Comment Toxic Granulation Toxic Vacuolation Platelet Estimate Platelet Morphology PT INR APTT Fibrinogen Puncture Site Art line Patient Temperature Not Reportable O2 Saturation 97 ABG pH 7.36 L ABG pCO2 40 ABG pO2 286 H ABG HCO3 22 ABG O2 Content 14.1 ABG Base Excess -2.8 L ABG Methemoglobin 1.4 Abhijeet Test Hemoglobin 9.8 L Carboxyhemoglobin 1.1 O2 Delivery Device Ventilator Vent Setting Prvc/ac Inspired O2 100 Critical Value No Sodium Potassium Chloride Carbon Dioxide Anion Gap BUN Creatinine Estimated GFR POC Glucose Random Glucose Lactic Acid Calcium Phosphorus Magnesium Iron TIBC % Saturation Ferritin Total Bilirubin 1.3 H Direct Bilirubin 0.7 H Indirect Bilirubin 0.6 AST 29 ALT 36 Alkaline Phosphatase 89 Ammonia 44 H Total Creatine Kinase 244 Troponin I 0.16 H B-Natriuretic Peptide Total Protein 6.7 D Albumin 1.7 L Amylase 395 H Lipase 78 Procalcitonin TSH Free T4 Free T3 Total T3 Urine Color Urine Clarity Urine pH Ur Specific [place] Urine Protein Urine Glucose (UA) Urine Ketones Urine Occult Blood Urine Nitrate Urine Bilirubin Urine Urobilinogen Ur Leukocyte Esterase Urine RBC Urine WBC Urine WBC Clumps Ur Squamous Epith Cells Urine Bacteria Urine Mucus Micro UA Comment Ur Microscopic Review Urine Culture Comments Urine Eosinophils Ur Random Creatinine Ur Random Sodium Random Vancomycin 08/16/18 08/16/18 08/16/18 09:10 12:41 12:42 WBC RBC Hgb Hct MCV MCH MCHC RDW Plt Count MPV Prelim Diff (Auto) Neut % (Auto) Lymph % (Auto) [place] % (Auto) Eos % (Auto) Baso % (Auto) Neut # (Auto) Lymph # (Auto) [place] # (Auto) Eos # (Auto) Baso # (Auto) WBC Differential Diff Scan Seg Neuts % (Manual) Band Neuts % (Manual) Monocytes % (Manual) Abs Neuts (Manual) Nucleated RBCs/100 WBC Differential Comment Toxic Granulation Toxic Vacuolation Platelet Estimate Platelet Morphology PT INR APTT Fibrinogen Puncture Site Patient Temperature O2 Saturation ABG pH ABG pCO2 ABG pO2 ABG HCO3 ABG O2 Content ABG Base Excess ABG Methemoglobin Abhijeet Test Hemoglobin Carboxyhemoglobin O2 Delivery Device Vent Setting Inspired O2 Critical Value Sodium Potassium Chloride Carbon Dioxide Anion Gap BUN Creatinine Estimated GFR POC Glucose 356 H 305 H Random Glucose Lactic Acid Calcium Phosphorus Magnesium Iron TIBC % Saturation Ferritin Total Bilirubin Direct Bilirubin Indirect Bilirubin AST ALT Alkaline Phosphatase Ammonia Total Creatine Kinase Troponin I B-Natriuretic Peptide Total Protein Albumin Amylase Lipase Procalcitonin 3.32 H TSH Free T4 Free T3 Total T3 Urine Color Urine Clarity Urine pH Ur Specific [place] Urine Protein Urine Glucose (UA) Urine Ketones Urine Occult Blood Urine Nitrate Urine Bilirubin Urine Urobilinogen Ur Leukocyte Esterase Urine RBC Urine WBC Urine WBC Clumps Ur Squamous Epith Cells Urine Bacteria Urine Mucus Micro UA Comment Ur Microscopic Review Urine Culture Comments Urine Eosinophils Ur Random Creatinine Ur Random Sodium Random Vancomycin 08/16/18 08/16/18 08/16/18 16:03 16:15 16:15 WBC RBC Hgb Hct MCV MCH MCHC RDW Plt Count MPV Prelim Diff (Auto) Neut % (Auto) Lymph % (Auto) [place] % (Auto) Eos % (Auto) Baso % (Auto) Neut # (Auto) Lymph # (Auto) [place] # (Auto) Eos # (Auto) Baso # (Auto) WBC Differential Diff Scan Seg Neuts % (Manual) Band Neuts % (Manual) Monocytes % (Manual) Abs Neuts (Manual) Nucleated RBCs/100 WBC Differential Comment Toxic Granulation Toxic Vacuolation Platelet Estimate Platelet Morphology PT INR APTT Fibrinogen Puncture Site Patient Temperature O2 Saturation ABG pH ABG pCO2 ABG pO2 ABG HCO3 ABG O2 Content ABG Base Excess ABG Methemoglobin Abhijeet Test Hemoglobin Carboxyhemoglobin O2 Delivery Device Vent Setting Inspired O2 Critical Value Sodium Potassium Chloride Carbon Dioxide Anion Gap BUN Creatinine Estimated GFR POC Glucose 279 H Random Glucose Lactic Acid 5.7 H* Calcium Phosphorus Magnesium Iron TIBC % Saturation Ferritin Total Bilirubin Direct Bilirubin Indirect Bilirubin AST ALT Alkaline Phosphatase Ammonia Total Creatine Kinase Troponin I 0.18 H B-Natriuretic Peptide Total Protein Albumin Amylase Lipase Procalcitonin TSH Free T4 Free T3 1.03 L Total T3 Urine Color Urine Clarity Urine pH Ur Specific [place] Urine Protein Urine Glucose (UA) Urine Ketones Urine Occult Blood Urine Nitrate Urine Bilirubin Urine Urobilinogen Ur Leukocyte Esterase Urine RBC Urine WBC Urine WBC Clumps Ur Squamous Epith Cells Urine Bacteria Urine Mucus Micro UA Comment Ur Microscopic Review Urine Culture Comments Urine Eosinophils Ur Random Creatinine Ur Random Sodium Random Vancomycin 08/16/18 08/16/18 08/16/18 16:15 19:54 20:00 WBC RBC Hgb Hct MCV MCH MCHC RDW Plt Count MPV Prelim Diff (Auto) Neut % (Auto) Lymph % (Auto) [place] % (Auto) Eos % (Auto) Baso % (Auto) Neut # (Auto) Lymph # (Auto) [place] # (Auto) Eos # (Auto) Baso # (Auto) WBC Differential Diff Scan Seg Neuts % (Manual) Band Neuts % (Manual) Monocytes % (Manual) Abs Neuts (Manual) Nucleated RBCs/100 WBC Differential Comment Toxic Granulation Toxic Vacuolation Platelet Estimate Platelet Morphology PT INR APTT Fibrinogen Puncture Site Patient Temperature O2 Saturation ABG pH ABG pCO2 ABG pO2 ABG HCO3 ABG O2 Content ABG Base Excess ABG Methemoglobin Abhijeet Test Hemoglobin Carboxyhemoglobin O2 Delivery Device Vent Setting Inspired O2 Critical Value Sodium Potassium Chloride Carbon Dioxide Anion Gap BUN Creatinine Estimated GFR POC Glucose 248 H Random Glucose Lactic Acid 3.6 H Calcium Phosphorus Magnesium Iron TIBC % Saturation Ferritin Total Bilirubin Direct Bilirubin Indirect Bilirubin AST ALT Alkaline Phosphatase Ammonia Total Creatine Kinase Troponin I B-Natriuretic Peptide Total Protein Albumin Amylase Lipase Procalcitonin TSH Free T4 Free T3 Total T3 41 L Urine Color Urine Clarity Urine pH Ur Specific [place] Urine Protein Urine Glucose (UA) Urine Ketones Urine Occult Blood Urine Nitrate Urine Bilirubin Urine Urobilinogen Ur Leukocyte Esterase Urine RBC Urine WBC Urine WBC Clumps Ur Squamous Epith Cells Urine Bacteria Urine Mucus Micro UA Comment Ur Microscopic Review Urine Culture Comments Urine Eosinophils Ur Random Creatinine Ur Random Sodium Random Vancomycin 08/16/18 08/16/18 08/16/18 20:30 20:30 20:30 WBC RBC Hgb Hct MCV MCH MCHC RDW Plt Count MPV Prelim Diff (Auto) Neut % (Auto) Lymph % (Auto) Gilmer % (Auto) Eos % (Auto) Baso % (Auto) Neut # (Auto) Lymph # (Auto) [place] # (Auto) Eos # (Auto) Baso # (Auto) WBC Differential Diff Scan Seg Neuts % (Manual) Band Neuts % (Manual) Monocytes % (Manual) Abs Neuts (Manual) Nucleated RBCs/100 WBC Differential Comment Toxic Granulation Toxic Vacuolation Platelet Estimate Platelet Morphology PT INR APTT Fibrinogen Puncture Site Patient Temperature O2 Saturation ABG pH ABG pCO2 ABG pO2 ABG HCO3 ABG O2 Content ABG Base Excess ABG Methemoglobin Abhijeet Test Hemoglobin Carboxyhemoglobin O2 Delivery Device Vent Setting Inspired O2 Critical Value Sodium Potassium Chloride Carbon Dioxide Anion Gap BUN Creatinine Estimated GFR POC Glucose Random Glucose Lactic Acid Calcium Phosphorus Magnesium Iron TIBC % Saturation Ferritin Total Bilirubin Direct Bilirubin Indirect Bilirubin AST ALT Alkaline Phosphatase Ammonia Total Creatine Kinase Troponin I B-Natriuretic Peptide Total Protein Albumin Amylase Lipase Procalcitonin TSH Free T4 Free T3 Total T3 Urine Color Urine Clarity Urine pH Ur Specific [place] Urine Protein Urine Glucose (UA) Urine Ketones Urine Occult Blood Urine Nitrate Urine Bilirubin Urine Urobilinogen Ur Leukocyte Esterase Urine RBC Urine WBC Urine WBC Clumps Ur Squamous Epith Cells Urine Bacteria Urine Mucus Micro UA Comment Ur Microscopic Review Urine Culture Comments Urine Eosinophils None seen Ur Random Creatinine 27 Ur Random Sodium 12 Random Vancomycin 08/17/18 08/17/18 08/17/18 00:00 04:02 05:10 WBC RBC Hgb Hct MCV MCH MCHC RDW Plt Count MPV Prelim Diff (Auto) Neut % (Auto) Lymph % (Auto) [place] % (Auto) Eos % (Auto) Baso % (Auto) Neut # (Auto) Lymph # (Auto) [place] # (Auto) Eos # (Auto) Baso # (Auto) WBC Differential Diff Scan Seg Neuts % (Manual) Band Neuts % (Manual) Monocytes % (Manual) Abs Neuts (Manual) Nucleated RBCs/100 WBC Differential Comment Toxic Granulation Toxic Vacuolation Platelet Estimate Platelet Morphology PT INR APTT Fibrinogen Puncture Site Patient Temperature O2 Saturation ABG pH ABG pCO2 ABG pO2 ABG HCO3 ABG O2 Content ABG Base Excess ABG Methemoglobin Abhijeet Test Hemoglobin Carboxyhemoglobin O2 Delivery Device Vent Setting Inspired O2 Critical Value Sodium Potassium Chloride Carbon Dioxide Anion Gap BUN Creatinine Estimated GFR POC Glucose 181 H 135 H Random Glucose Lactic Acid 2.1 H Calcium Phosphorus Magnesium Iron TIBC % Saturation Ferritin Total Bilirubin Direct Bilirubin Indirect Bilirubin AST ALT Alkaline Phosphatase Ammonia Total Creatine Kinase Troponin I B-Natriuretic Peptide Total Protein Albumin Amylase Lipase Procalcitonin TSH Free T4 Free T3 Total T3 Urine Color Urine Clarity Urine pH Ur Specific [place] Urine Protein Urine Glucose (UA) Urine Ketones Urine Occult Blood Urine Nitrate Urine Bilirubin Urine Urobilinogen Ur Leukocyte Esterase Urine RBC Urine WBC Urine WBC Clumps Ur Squamous Epith Cells Urine Bacteria Urine Mucus Micro UA Comment Ur Microscopic Review Urine Culture Comments Urine Eosinophils Ur Random Creatinine Ur Random Sodium Random Vancomycin 08/17/18 08/17/18 08/17/18 05:10 05:10 05:10 WBC 21.5 H RBC 3.11 L Hgb 8.7 L Hct 26.2 L MCV 84.4 MCH 28.1 MCHC 33.3 RDW 17.8 H Plt Count 39 L D MPV 11.4 H Prelim Diff (Auto) Slide review pending Neut % (Auto) 94.0 H Lymph % (Auto) 2.7 L [place]mer % (Auto) 3.2 Eos % (Auto) 0.0 Baso % (Auto) 0.1 Neut # (Auto) 20.2 H Lymph # (Auto) 0.6 L [place] # (Auto) 0.7 Eos # (Auto) 0.0 Baso # (Auto) 0.0 WBC Differential . Diff Scan Auto diff confirmed Seg Neuts % (Manual) Band Neuts % (Manual) Monocytes % (Manual) Abs Neuts (Manual) Nucleated RBCs/100 WBC Differential Comment . Toxic Granulation 1+ H Toxic Vacuolation Platelet Estimate Platelet Morphology PT 12.7 H INR 1.3 APTT 28.0 Fibrinogen 548 H Puncture Site Patient Temperature O2 Saturation ABG pH ABG pCO2 ABG pO2 ABG HCO3 ABG O2 Content ABG Base Excess ABG Methemoglobin Abhijeet Test Hemoglobin Carboxyhemoglobin O2 Delivery Device Vent Setting Inspired O2 Critical Value Sodium 150 H Potassium 3.5 Chloride 116 H D Carbon Dioxide 24.8 Anion Gap 9 BUN 96 H Creatinine 1.46 H Estimated GFR 46 L POC Glucose Random Glucose 147 H Lactic Acid Calcium 8.1 L Phosphorus 3.7 D Magnesium 2.9 H Iron TIBC % Saturation Ferritin Total Bilirubin 0.9 Direct Bilirubin Indirect Bilirubin AST 48 H ALT 40 Alkaline Phosphatase 89 Ammonia Total Creatine Kinase Troponin I B-Natriuretic Peptide Total Protein 6.2 L Albumin 1.4 L Amylase Lipase Procalcitonin TSH 0.024 L Free T4 Free T3 Total T3 Urine Color Urine Clarity Urine pH Ur Specific [place] Urine Protein Urine Glucose (UA) Urine Ketones Urine Occult Blood Urine Nitrate Urine Bilirubin Urine Urobilinogen Ur Leukocyte Esterase Urine RBC Urine WBC Urine WBC Clumps Ur Squamous Epith Cells Urine Bacteria Urine Mucus Micro UA Comment Ur Microscopic Review Urine Culture Comments Urine Eosinophils Ur Random Creatinine Ur Random Sodium Random Vancomycin 08/17/18 08/17/18 08/17/18 08:14 09:32 11:06 WBC RBC Hgb Hct MCV MCH MCHC RDW Plt Count MPV Prelim Diff (Auto) Neut % (Auto) Lymph % (Auto) [place] % (Auto) Eos % (Auto) Baso % (Auto) Neut # (Auto) Lymph # (Auto) [place] # (Auto) Eos # (Auto) Baso # (Auto) WBC Differential Diff Scan Seg Neuts % (Manual) Band Neuts % (Manual) Monocytes % (Manual) Abs Neuts (Manual) Nucleated RBCs/100 WBC Differential Comment Toxic Granulation Toxic Vacuolation Platelet Estimate Platelet Morphology PT INR APTT Fibrinogen Puncture Site Patient Temperature O2 Saturation ABG pH ABG pCO2 ABG pO2 ABG HCO3 ABG O2 Content ABG Base Excess ABG Methemoglobin Abhijeet Test Hemoglobin Carboxyhemoglobin O2 Delivery Device Vent Setting Inspired O2 Critical Value Sodium Potassium Chloride Carbon Dioxide Anion Gap BUN Creatinine Estimated GFR POC Glucose 184 H 213 H Random Glucose Lactic Acid 2.0 Calcium Phosphorus Magnesium Iron TIBC % Saturation Ferritin Total Bilirubin Direct Bilirubin Indirect Bilirubin AST ALT Alkaline Phosphatase Ammonia Total Creatine Kinase Troponin I B-Natriuretic Peptide Total Protein Albumin Amylase Lipase Procalcitonin TSH Free T4 Free T3 Total T3 Urine Color Urine Clarity Urine pH Ur Specific [place] Urine Protein Urine Glucose (UA) Urine Ketones Urine Occult Blood Urine Nitrate Urine Bilirubin Urine Urobilinogen Ur Leukocyte Esterase Urine RBC Urine WBC Urine WBC Clumps Ur Squamous Epith Cells Urine Bacteria Urine Mucus Micro UA Comment Ur Microscopic Review Urine Culture Comments Urine Eosinophils Ur Random Creatinine Ur Random Sodium Random Vancomycin Result Diagrams: 08/17/18 05:10 08/17/18 05:10 Microbiology: Microbiology 08/16/18 19:11 Gram Stain - Final Sputum - Endotracheal 08/16/18 14:30 Aerobic Blood Culture - Preliminary Blood - Peripheral gram positive cocci Anaerobic Blood Culture - Preliminary No growth in 1 day 08/15/18 11:03 Aerobic Blood Culture - Final Blood - Peripheral Staphylococcus aureus Anaerobic Blood Culture - Final Staphylococcus aureus 08/15/18 11:09 Aerobic Blood Culture - Final Blood - Peripheral Staphylococcus aureus Anaerobic Blood Culture - Final Staphylococcus aureus 08/14/18 21:47 Urine Culture - Final Clean Catch Urine Staphylococcus aureus 08/13/18 09:11 Aerobic Blood Culture - Final Blood - Peripheral Staphylococcus aureus Anaerobic Blood Culture - Final Staphylococcus aureus 08/13/18 09:17 Aerobic Blood Culture - Final Blood - Peripheral Staphylococcus aureus Anaerobic Blood Culture - Final Staphylococcus aureus Imaging: Abdomen/Pelvis CT 08/02/18 04:01 CONCLUSION: 1. 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 2. Nonacute findings include severe atherosclerotic disease, cholelithiasis, stable complex cystic lesion of the left kidney measuring 6.5 cm, and cirrhotic liver. Humerus CT 08/11/18 00:00 CONCLUSION: 1. Nonacute appearing right-sided rib fractures. 2. No evidence for humerus fracture. 3. Note is made of ascites in the upper abdomen. Cervical Spine CT 08/12/18 00:00 CONCLUSION: 1. Degenerative disc change at C5-C6 with broad-based disc osteophyte complex with mass effect on the anterior thecal sac. This comes in close contact with the anterior cord which is poorly visualized. 2. Mild anterior spondylolisthesis of C4 on C5 approximately 2 mm. There is mild retrolisthesis of C5 on C6. 3. Mild disc osteophyte complex at C3-4. 4. Narrowing of the left neural foramina at C2-3 and C3-4 levels as well as narrowing of the right neural foramina at C5-6. Neck Ultrasound 08/15/18 00:00 CONCLUSION: 1. Unremarkable study. Abdomen/Bladder Ultrasound 08/16/18 00:00 CONCLUSION: 1. Limited examination secondary to bowel gas. 2. No evidence for obstructive uropathy. 3. Mildly echogenic kidneys consistent with medical renal disease. 4. 4.9 cm possible cyst in the inferior pole the right kidney which was not noted on recent CT exam and not demonstrated on sagittal images. Uncertain if this is artifactual. 5. Redemonstration of complex 4.4 cm cyst in the inferior pole of the left kidney. Head CT 08/16/18 00:00 CONCLUSION: 1. Senescent changes without acute intracranial abnormality. . Soft Tissue Neck CT 08/16/18 00:00 CONCLUSION: 1. Asymmetrical enlargement of the left parotid gland with mild diffuse stranding consistent with mild left parotiditis. 2. Bulky bilateral carotid artery plaque. Chest X-Ray 08/17/18 06:00 CONCLUSION: Cardiomegaly. Basilar areas of mild consolidation or atelectasis. Procedures: 08/16/18-orotracheal intubation 08/16/18 -left IJ central venous catheter placement 08/16/18-left femoral arterial catheter placement Assessment and Plan - Disease Oriented Problem List (1) Acute respiratory failure with hypoxia and hypercapnia (2) Staphylococcus aureus bacteremia with sepsis (3) Thrombocytopenia (4) Acute kidney injury (5) Acute GI bleeding (6) Anemia (7) Lactic acidosis (8) Cardiomyopathy (9) Atrial flutter (10) Prostate cancer (11) Diabetes mellitus - Symptom Scale (1) Pain 0-10 Scale: Unable to quantify (Intubated. Currently on fentanyl infusion) Comment: Patient has been complaining of neck pain. CTA neck on 08/12. (2) Dyspnea 0-10 Scale: Unable to quantify Comment: Patient currently intubated on mechanical ventilator. Pertinent Non-Medical Issues: Psychosocial: Patient is originally from [place]. He moved to [place] in 1999 after fpc. Patient has been twice. First is . Currently resides at home with his spouse Linda Butterfield. He has 4 adult children 1 daughter and 3 sons. 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 Spiritual: Patient is Christian-declined visit from manager fine or trapeze artist. Legal: Unknown if patient is ever completed advance directives. Ethical issues impacting care: None identified at this time. Important Contacts: Spouse-Linda Butterfield-[phone] . Prognosis: Mr. Butterfield is a 89-year-old patient with a medical history of diabetes mellitus, psoriasis, prostate cancer and left tibia/fibula fracture. Patient was brought to the emergency room by [facility] on 08/02/18 with complaints of worsening bright red blood per rectum with watery stool for a few days. Clinical course complicated with thrombocytopenia, bacteremia, dysphagia, altered mental status and acute respiratory failure. Given multiple ongoing comorbidities patient remains at high risk for further complications, deterioration and decline. . Code Status: No Code DNR Plan: PLAN: Legal decision maker: Patient is currently intubated on mechanical ventilation. It is not known whether patient will regain capacity to make his own medical decisions. According to [place] statute, his spouse Scout Mckeon will serve as his healthcare proxy. Goals: Aggressive short of no code. Patient`s states that she does not want patient to continue suffering and she has decided to compassionately withdraw patient from life support. She is waiting for one of patient`s sons who has indicated that he would want to come and visit with patient but he has not yet told her anything further regarding his travelling plans from [place] and possible arrival date. Introduced hospice philosophy and benefits. Patient`s would like to transition patient to comfort care only through hospice services at time of compassionate withdrawal. CODE STATUS: No code DNR SYMPTOMS: * Pain: Patient has been complaining of neck pain. 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 CTA neck on 08/12/18 revealed C-spine degenerative disc change at C5-C6 with broad-based disc osteophyte complex with mass effect on the anterior thecal sac. This comes in close contact with the anterior cord which is poorly visualized. Mild anterior spondylolisthesis of C4 on C5 approximately 2 mm. There is mild retrolisthesis of C5 on C6. Mild disc osteophyte complex at C3-4. Narrowing of the left neural foramina at C2-3 and C3-4 levels as well as narrowing of the right neural foramina at C5-6. Patient was started on fentanyl infusion currently infusing at 50 mcg/h. Patient is not showing any signs of pain at this time. Continue to monitor for pain. * Shortness of breath: Patient has acute systolic heart failure and he went into acute hypoxic Respiratory failure requiring intubation and mechanical ventilator support. Patient is currently on FiO2 50%. Palliative care will continue to follow the patient during hospital course as condition evolves, to assist patient/decision-maker with understanding of their medical conditions, weighing benefits/burdens of treatment options, for clarification of goals of treatment. Additionally will assist with any symptoms of palliative concern Attestation Attestation: To help prompt me to consider important information that might be impacting today's encounter and assessment, information from prior notes written by myself or my colleagues may have been "brought forward" into today's note. My signature on this note, however, is an attestation that I personally performed the exam, history, and/or decision-making noted today, and, unless otherwise indicated, the interactions with patient, family, and staff as well as the review of records all occurred today. I also attest that the listed assessment and stated plan reflect my best clinical judgment today based on the combination of historical information, prior notes, and today's exam/ interactions. When time spent is documented, it refers only to time spent today by the signer, or if indicated, combined time spent today by collaborating physician/nurse practitioner.
--- NOTE | 2018-08-17 16:54 | P.PNONC ---
Subjective Interval history: Patient remains in critical condition. Intubated and maxed out on vasopressors. Per director family has discussed possibly withdrawing life support once a son arrives in town. His CODE STATUS has been changed to DNR. Patient does open his eyes to command, he does not follow any other commands. He is not moving any extremities. Objective Vital Signs/Intake & Output: Vital Signs 08/16/18 16:56 08/16/18 17:00 08/16/18 18:00 Temperature Pulse Rate 106 H 96 H 94 H Respiratory Rate 23 19 21 Pulse Oximetry 100 100 08/16/18 19:00 08/16/18 19:54 08/16/18 20:00 Temperature 98.4 F Pulse Rate 89 86 89 Respiratory Rate 22 20 20 Pulse Oximetry 100 100 100 08/16/18 21:00 08/16/18 22:00 08/16/18 23:00 Temperature Pulse Rate 81 80 78 Respiratory Rate 17 17 16 Pulse Oximetry 99 99 99 08/17/18 00:00 08/17/18 00:18 08/17/18 01:18 Temperature 98.4 F Pulse Rate 75 75 Respiratory Rate 16 16 16 Pulse Oximetry 99 100 08/17/18 03:32 08/17/18 04:00 08/17/18 04:08 Temperature 98.4 F Pulse Rate 81 77 Respiratory Rate 16 16 16 Pulse Oximetry 100 97 08/17/18 08:00 08/17/18 08:58 08/17/18 11:00 Temperature 96.8 F L Pulse Rate 66 66 77 Respiratory Rate 12 14 14 Pulse Oximetry 100 100 08/17/18 11:15 08/17/18 11:28 08/17/18 11:30 Temperature Pulse Rate 68 70 68 Respiratory Rate 12 14 12 Pulse Oximetry 99 99 99 08/17/18 11:45 08/17/18 12:00 08/17/18 16:00 Temperature 96.9 F L 97.4 F L Pulse Rate 68 70 72 Respiratory Rate 12 12 12 Pulse Oximetry 100 100 99 08/17/18 16:38 Temperature Pulse Rate 72 Respiratory Rate 13 Pulse Oximetry 98 Intake & Output 08/16/18 08/17/18 08/17/18 18:59 06:59 18:59 Intake Total 805 / 805 700 / 700 1300 / 1300 Output Total 627 / 627 1800 / 1800 Balance 178 / 178 -1100 / -1100 1300 / 1300 Weight 82.9 kg Intake: IV 805 / 805 700 / 700 1300 / 1300 Neosynephrine Inj 160 MG In NS 500 / 500 Inj 484 ML @ 40 MCG/MIN 7.5 mls /hr IV.CONT TITRATE PRN Rx#: [id number] Diprivan 1000 mg/100 ml Inj 1, 0 / 0 000 mg In 100 ml @ 5 MCG/KG/MIN 2.508 mls/hr IV.CONT TITRATE PRN Rx#:[id number] Pitressin Inj 40 UNIT In NS Inj 100 / 100 98 ML @ 0.04 UNITS/MIN 6 mls/ hr IV.CONT CONT KATHERINE Rx#: [id number] Cordarone Inj 150 MG In D5W Inj 100 / 100 97 ML @ 100 mls/hr IV.SIG ONCE ONE Rx#:[id number] Levophed-Dextrose 4 mg/250 ml 250 / 250 Drip 4 mg In 250 ml @ 0 mls/hr IV.SIG .STK-MED ONE Rx#: [id number] Prostaphlin Inj 2 GM In NS Inj 200 / 200 100 ML @ 200 mls/hr IV.SIG Q4H KATHERINE Rx#:[id number] NS Inj 1,000 ML @ Wide Open IV. 1000 / 1000 SIG BOLUS ONE Rx#:[id number] Ancef Inj 1,000 MG In NS Inj 200 / 200 100 / 100 100 / 100 100 ML @ 200 mls/hr IV.SIG Q8H [facility] Rx#:[id number] Output: Urine 625 / 625 1800 / 1800 Urine/Stool Mix 2 / 2 Other: # Incontinent Voids 4 Date of Last Bowel Movement 08/15/18 # Bowel Movements 2 1 Result Diagrams: 08/17/18 05:10 08/17/18 05:10 Laboratory Results: Laboratory Results - last 24 hr 08/16/18 08/16/18 08/16/18 16:15 16:15 16:15 WBC RBC Hgb Hct MCV MCH MCHC RDW Plt Count MPV Prelim Diff (Auto) Neut % (Auto) Lymph % (Auto) [place] % (Auto) Eos % (Auto) Baso % (Auto) Neut # (Auto) Lymph # (Auto) [place] # (Auto) Eos # (Auto) Baso # (Auto) WBC Differential Diff Scan Differential Comment Toxic Granulation PT INR APTT Fibrinogen Sodium Potassium Chloride Carbon Dioxide Anion Gap BUN Creatinine Estimated GFR POC Glucose Random Glucose Lactic Acid 5.7 H* Calcium Phosphorus Magnesium Total Bilirubin AST ALT Alkaline Phosphatase Troponin I 0.18 H Total Protein Albumin TSH Free T3 1.03 L Total T3 41 L Urine Eosinophils Ur Random Creatinine Ur Random Sodium 08/16/18 08/16/18 08/16/18 19:54 20:00 20:30 WBC RBC Hgb Hct MCV MCH MCHC RDW Plt Count MPV Prelim Diff (Auto) Neut % (Auto) Lymph % (Auto) [place] % (Auto) Eos % (Auto) Baso % (Auto) Neut # (Auto) Lymph # (Auto) [place] # (Auto) Eos # (Auto) Baso # (Auto) WBC Differential Diff Scan Differential Comment Toxic Granulation PT INR APTT Fibrinogen Sodium Potassium Chloride Carbon Dioxide Anion Gap BUN Creatinine Estimated GFR POC Glucose 248 H Random Glucose Lactic Acid 3.6 H Calcium Phosphorus Magnesium Total Bilirubin AST ALT Alkaline Phosphatase Troponin I Total Protein Albumin TSH Free T3 Total T3 Urine Eosinophils Ur Random Creatinine 27 Ur Random Sodium 08/16/18 08/16/18 08/17/18 20:30 20:30 00:00 WBC RBC Hgb Hct MCV MCH MCHC RDW Plt Count MPV Prelim Diff (Auto) Neut % (Auto) Lymph % (Auto) [place] % (Auto) Eos % (Auto) Baso % (Auto) Neut # (Auto) Lymph # (Auto) [place] # (Auto) Eos # (Auto) Baso # (Auto) WBC Differential Diff Scan Differential Comment Toxic Granulation PT INR APTT Fibrinogen Sodium Potassium Chloride Carbon Dioxide Anion Gap BUN Creatinine Estimated GFR POC Glucose 181 H Random Glucose Lactic Acid Calcium Phosphorus Magnesium Total Bilirubin AST ALT Alkaline Phosphatase Troponin I Total Protein Albumin TSH Free T3 Total T3 Urine Eosinophils None seen Ur Random Creatinine Ur Random Sodium 12 08/17/18 08/17/18 08/17/18 04:02 05:10 05:10 WBC 21.5 H RBC 3.11 L Hgb 8.7 L Hct 26.2 L MCV 84.4 MCH 28.1 MCHC 33.3 RDW 17.8 H Plt Count 39 L D MPV 11.4 H Prelim Diff (Auto) Slide review pending Neut % (Auto) 94.0 H Lymph % (Auto) 2.7 L [place] % (Auto) 3.2 Eos % (Auto) 0.0 Baso % (Auto) 0.1 Neut # (Auto) 20.2 H Lymph # (Auto) 0.6 L [place] # (Auto) 0.7 Eos # (Auto) 0.0 Baso # (Auto) 0.0 WBC Differential . Diff Scan Auto diff confirmed Differential Comment . Toxic Granulation 1+ H PT INR APTT Fibrinogen Sodium Potassium Chloride Carbon Dioxide Anion Gap BUN Creatinine Estimated GFR POC Glucose 135 H Random Glucose Lactic Acid 2.1 H Calcium Phosphorus Magnesium Total Bilirubin AST ALT Alkaline Phosphatase Troponin I Total Protein Albumin TSH Free T3 Total T3 Urine Eosinophils Ur Random Creatinine Ur Random Sodium 08/17/18 08/17/18 08/17/18 05:10 05:10 08:14 WBC RBC Hgb Hct MCV MCH MCHC RDW Plt Count MPV Prelim Diff (Auto) Neut % (Auto) Lymph % (Auto) [place] % (Auto) Eos % (Auto) Baso % (Auto) Neut # (Auto) Lymph # (Auto) [place] # (Auto) Eos # (Auto) Baso # (Auto) WBC Differential Diff Scan Differential Comment Toxic Granulation PT 12.7 H INR 1.3 APTT 28.0 Fibrinogen 548 H Sodium 150 H Potassium 3.5 Chloride 116 H D Carbon Dioxide 24.8 Anion Gap 9 BUN 96 H Creatinine 1.46 H Estimated GFR 46 L POC Glucose 184 H Random Glucose 147 H Lactic Acid Calcium 8.1 L Phosphorus 3.7 D Magnesium 2.9 H Total Bilirubin 0.9 AST 48 H ALT 40 Alkaline Phosphatase 89 Troponin I Total Protein 6.2 L Albumin 1.4 L TSH 0.024 L Free T3 Total T3 Urine Eosinophils Ur Random Creatinine Ur Random Sodium 08/17/18 08/17/18 08/17/18 09:32 11:06 15:36 WBC RBC Hgb Hct MCV MCH MCHC RDW Plt Count MPV Prelim Diff (Auto) Neut % (Auto) Lymph % (Auto) [place] % (Auto) Eos % (Auto) Baso % (Auto) Neut # (Auto) Lymph # (Auto) [place] # (Auto) Eos # (Auto) Baso # (Auto) WBC Differential Diff Scan Differential Comment Toxic Granulation PT INR APTT Fibrinogen Sodium Potassium Chloride Carbon Dioxide Anion Gap BUN Creatinine Estimated GFR POC Glucose 213 H 240 H Random Glucose Lactic Acid 2.0 Calcium Phosphorus Magnesium Total Bilirubin AST ALT Alkaline Phosphatase Troponin I Total Protein Albumin TSH Free T3 Total T3 Urine Eosinophils Ur Random Creatinine Ur Random Sodium Culture Results: Microbiology 08/16/18 19:11 Gram Stain - Final Sputum - Endotracheal Sputum Culture - Preliminary Heavy growth normal respiratory tamir at 24 hours 08/16/18 14:30 Aerobic Blood Culture - Preliminary Blood - Peripheral gram positive cocci Anaerobic Blood Culture - Preliminary No growth in 1 day 08/15/18 11:03 Aerobic Blood Culture - Final Blood - Peripheral Staphylococcus aureus Anaerobic Blood Culture - Final Staphylococcus aureus 08/15/18 11:09 Aerobic Blood Culture - Final Blood - Peripheral Staphylococcus aureus Anaerobic Blood Culture - Final Staphylococcus aureus 08/14/18 21:47 Urine Culture - Final Clean Catch Urine Staphylococcus aureus 08/13/18 09:11 Aerobic Blood Culture - Final Blood - Peripheral Staphylococcus aureus Anaerobic Blood Culture - Final Staphylococcus aureus 08/13/18 09:17 Aerobic Blood Culture - Final Blood - Peripheral Staphylococcus aureus Anaerobic Blood Culture - Final Staphylococcus aureus Imaging Studies: Impressions Chest X-Ray 08/17/18 06:00 CONCLUSION: Cardiomegaly. Basilar areas of mild consolidation or atelectasis. Medications: Active Medications Generic Name Dose Route Start Last Admin Trade Name Freq PRN Reason Stop Dose Admin Acetaminophen 650 mg 08/02/18 04:18 08/10/18 03:05 Tylenol PO 650 mg Q6H PRN Administration PAIN 1-2 OR FEVER >101F Albuterol 2.5 mg 08/08/18 08:57 08/13/18 05:01 Albuterol Neb (Prn) NEB 2.5 mg Q2HR NEB PRN Administration DYSPNEA Albuterol 1 ampul 08/16/18 00:00 08/17/18 16:40 Duoneb Neb (Katherine) NEB 1 ampul Q4HR NEB KATHERINE Administration Artificial Tears 1 drop 08/16/18 09:00 08/17/18 08:42 Refresh Tears 0.5% Opth Drops EACH EYE 1 drop BID KATHERINE Administration Chlorhexidine Gluconate 15 ml 08/16/18 08:00 08/17/18 08:41 Peridex 0.12% Oral Kit OROPHARYNG 15 ml BID@0800,2000 KATHERINE Administration Hydrocortisone Sodium Succinate 50 mg 08/17/18 08:30 08/17/18 13:00 Solucortef Inj IV.PUSH 50 mg Q8HR KATHERINE Administration Potassium Chloride 20 meq in 100 mls @ 50 mls/hr 08/05/18 08:03 08/05/18 17: 14 Kcl 20 Meq Premix Inj IV.SIG Infused Q2H PRN Infusion For Potassium 2.8 - 3.2 mEq/L Potassium Phosphate 30 mmol/ 260 mls @ 42 mls/hr 08/05/18 08:03 08/07/18 11: 42 Sodium Chloride IV.SIG Infused UNSCH PRN Infusion SEE LABEL COMMENTS Sodium Chloride 1,000 mls @ 0 mls/hr 08/14/18 15:18 08/14/18 19:00 Ns Inj IV.SIG Infused BOLUS KATHERINE Infusion Wide Open Norepinephrine Bitartrate 16 250 mls @ 1.87 mls/hr 08/16/18 06:49 08/16/18 14 :15 mg/ Sodium Chloride IV.CONT 14 mcg/min TITRATE PRN 13.12 mls/hr See Protocol Administration Protocol 2 MCG/MIN Propofol 1,000 mg in 100 mls @ 2.508 mls/hr 08/16/18 07:02 08/17/18 09:14 Diprivan 1000 Mg/100 Ml Inj IV.CONT Infused TITRATE PRN Titration Per Protocol Protocol 5 MCG/KG/MIN Fentanyl 2,500 mcg in 250 mls @ 5 mls/hr 08/16/18 07:03 08/16/18 19:05 Fentanyl 10 Mcg/Ml Premix Drip IV.SIG 50 mcg/hr TITRATE PRN 5 mls/hr Per Protocol Administration Protocol 50 MCG/HR Phenylephrine HCl 160 mg/ 500 mls @ 7.5 mls/hr 08/16/18 10:00 08/17/18 00:10 Sodium Chloride IV.CONT 150 mcg/min TITRATE PRN 28.12 mls/hr See protol Administration Protocol 40 MCG/MIN Vasopressin 40 unit/ Sodium 100 mls @ 6 mls/hr 08/16/18 15:00 08/17/18 05:47 Chloride IV.CONT 0.04 units/min CONT KATHERINE 6 mls/hr Administration Protocol 0.04 UNITS/MIN Oxacillin Sodium 2 gm/ Sodium 100 mls @ 200 mls/hr 08/17/18 13:00 08/17/18 16 :37 Chloride IV.SIG Infused Q4H KATHERINE Infusion Insulin Aspart 0 unit 08/16/18 12:00 08/17/18 15:52 Novolog Insulin Correctional Sugar Inj SQ 4 unit Q4HR KATHERINE Administration Protocol Miscellaneous Medication 1 each 10/24/18 12:00 08/17/18 15:53 OROPHARYNG 1 each 0000,0400,1200,1600 KATHERINE Administration Multi-Ingredient Mouthwash/Gargle 10 ml 08/08/18 18:00 08/17/18 13:00 Magic Mouthwash Adult Liq SWISH-SWAL Not Given QID KATHERINE Pantoprazole Sodium 40 mg 08/16/18 09:00 08/17/18 08:42 Protonix Inj IV.PUSH 40 mg BID KATHERINE Administration Polyethylene Glycol 17 gm 08/08/18 11:45 08/17/18 08:24 Miralax PO Not Given DAILY KATHERINE Potassium Bicarb/Potassium Chloride 50 meq 08/05/18 08:43 08/07/18 22:30 K-Lyte Cl Eff PO 50 meq UNSCH PRN Administration For Potassium 3.3 - 3.5 mEq/L Potassium Phosphate 2,000 mg 08/05/18 08:03 08/06/18 15:48 K-Phos Original PO 2,000 mg Q4H PRN Administration Phosphorus Less Than 2.5 mg/dL Romiplostim 89 mcg 08/09/18 10:00 08/16/18 10:00 Nplate Inj SQ Not Given Q7D [facility] Senna/Docusate Sodium 1 tab 08/02/18 09:00 08/17/18 08:24 Lisa-Colace PO Not Given BID KATHERINE Sodium Chloride 2 ml 08/02/18 09:00 08/17/18 08:41 Ns Flush IV.FLUSH 2 ml BID KATHERINE Administration Sodium Chloride 2 ml 08/02/18 04:18 08/13/18 10:16 Ns Flush IV.FLUSH 2 ml PRN PRN Administration FLUSH AFTER USING IV ACCESS Tamsulosin HCl 0.4 mg 08/02/18 09:00 08/14/18 13:15 Flomax PO Not Given DAILY [facility] Objective Remarks: GENERAL: Critically ill-appearing elderly male patient, intubated and sedated. SKIN: Pale, warm and dry. Bruises to bilateral arms and right foot. HEAD: Normocephalic. EYES: No scleral icterus. No injection or drainage. NECK: Supple, trachea midline. CARDIOVASCULAR: Distant heart sounds. RESPIRATORY: Anterior breath sounds with rhonchi throughout, equal bilaterally. FiO2 50%. GASTROINTESTINAL: Abdomen soft, distended, non-tender. EXTREMITIES: No cyanosis, or edema. MUSCULOSKELETAL: Decreased muscle tone. NEUROLOGICAL: Sedated. Opens eyes to command. Not moving extremities. Assessment/Plan - Plan Mr. Butterfield is a pleasant 83-year-old male patient who is currently hospitalized for a GI bleed. Hematology was consulted for severe thrombocytopenia. 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 Plan: 1. Acute ITP. Status post immunoglobulin on 08/04 & 08/08 and Nplate on . Platelet count increased to 39,000. Hold endplate at this time. Patient critically ill. 2. GI bleed, management per gastroenterology. No obvious signs of bleeding, hemoglobin 8.7. 3. Sepsis, bacteremia with multiple positive blood cultures growing Staphylococcus areas. Infectious disease is following. Possible endocarditis, YANETH on hold due to patient's critical status. 4. Patient remains critically ill with a poor prognosis. Palliative care is following. - Attending Statement Pt seen in room 1321 along with RN. Pt unresponsive to ongoing therapy and is DNR now. But no active bleeding; hb and platelets stable. Hence will not give additional doses of Nplate for tx of ITP. His prognosis is grave. Will hold off further tx from a hematology point of view until family makes final decisions regarding extent of care.
[2018-08-17] MEDS: Norepinephrine Inj 16 MG in Sodium Chlor 0.9% Inj 234 ML IV.CONT PRN (17:17)
[2018-08-17] MEDS: fentaNYL 10 mcg/mL Premix Drip 2,500 MCG/250 ML BAG IV.SIG PRN (21:35)
--- NOTE | 2018-08-17 23:01 | P.PNCA ---
Subjective Interval history: Stable at this time Lactic acid trending down Medications and Allergies Active Medications: Active Medications Acetaminophen (Tylenol) 650 mg PO Q6H PRN PRN Reason: PAIN 1-2 OR FEVER >101F Last Admin: 08/10/18 03:05 Dose: 650 mg Al Hydroxide/Mg Hydroxide (Milk Of Magnesia Liq) 30 ml PO Q12H PRN PRN Reason: Mild Constipation Albuterol (Albuterol Neb (Prn)) 2.5 mg NEB Q2HR NEB PRN PRN Reason: DYSPNEA Last Admin: 08/13/18 05:01 Dose: 2.5 mg Albuterol (Duoneb Neb (Katherine)) 1 ampul NEB Q4HR NEB KATHERINE Last Admin: 08/17/18 20:23 Dose: 1 ampul Artificial Tears (Refresh Tears 0.5% Opth Drops) 1 drop EACH EYE BID [facility] Last Admin: 08/17/18 20:04 Dose: 1 drop Chlorhexidine Gluconate (Peridex 0.12% Oral Kit) 15 ml OROPHARYNG BID@0800, 2000 [facility] Last Admin: 08/17/18 20:04 Dose: 15 ml Dextrose (D50w Vial) 50 ml IV.PUSH UNSCH PRN PRN Reason: PER HYPOGLYCEMIA PROTOCOL Glucagon (Glucagon Inj) 1 mg OTHER PRN PRN PRN Reason: for Hypoglycemia Protocol Hydrocortisone Sodium Succinate (Solucortef Inj) 50 mg IV.PUSH Q8HR [facility] Last Admin: 08/17/18 21:10 Dose: 50 mg Magnesium Sulfate 4 gm/ Sodium (Chloride) 100 mls @ 50 mls/hr IV.SIG UNSCH PRN PRN Reason: For Magnesium 0.9 - 1.1 mg/dL Magnesium Sulfate 2 gm/ Sodium (Chloride) 100 mls @ 50 mls/hr IV.SIG UNSCH PRN PRN Reason: For Magnesium 1.2 - 1.6 mg/dL Potassium Chloride (Kcl 40 Meq Premix Inj) 40 meq in 100 mls @ 25 mls/hr IV.SIG Q2H PRN PRN Reason: For Potassium 2.8 - 3.2 mEq/L Potassium Chloride (Kcl 20 Meq Premix Inj) 20 meq in 100 mls @ 50 mls/hr IV.SIG Q2H PRN PRN Reason: For Potassium 3.3 - 3.5 mEq/L Potassium Chloride (Kcl 40 Meq Premix Inj) 40 meq in 100 mls @ 25 mls/hr IV.SIG UNSCH PRN PRN Reason: For Potassium 3.3 - 3.5 mEq/L Potassium Chloride (Kcl 20 Meq Premix Inj) 20 meq in 100 mls @ 50 mls/hr IV.SIG Q2H PRN PRN Reason: For Potassium 2.8 - 3.2 mEq/L Last Infusion: 08/05/18 17:14 Dose: Infused Potassium Phosphate 30 mmol/ (Sodium Chloride) 260 mls @ 42 mls/hr IV.SIG UNSCH PRN PRN Reason: SEE LABEL COMMENTS Last Infusion: 08/07/18 11:42 Dose: Infused Sodium Phosphate 30 mmol/ (Sodium Chloride) 260 mls @ 42 mls/hr IV.SIG UNSCH PRN PRN Reason: For Phosphorus < 2.5 mg/dL Sodium Chloride (Ns Inj) 1,000 mls @ 0 mls/hr IV.SIG BOLUS KATHERINE Last Infusion: 08/14/18 19:00 Dose: Infused Sodium Chloride (Ns Inj) 500 mls @ 0 mls/hr IV.SIG BOLUS KATHERINE Norepinephrine Bitartrate 16 (mg/ Sodium Chloride) 250 mls @ 1.87 mls/hr IV.CONT TITRATE PRN; Protocol PRN Reason: See Protocol Last Admin: 08/17/18 17:17 Dose: 15 mcg/min, 14.06 mls/hr Propofol (Diprivan 1000 Mg/100 Ml Inj) 1,000 mg in 100 mls @ 2.508 mls/hr IV.CONT TITRATE PRN; Protocol PRN Reason: Per Protocol Last Titration: 08/17/18 09:14 Dose: Infused Fentanyl (Fentanyl 10 Mcg/Ml Premix Drip) 2,500 mcg in 250 mls @ 5 mls/hr IV.SIG TITRATE PRN; Protocol PRN Reason: Per Protocol Last Admin: 08/17/18 21:35 Dose: 50 mcg/hr, 5 mls/hr Phenylephrine HCl 160 mg/ (Sodium Chloride) 500 mls @ 7.5 mls/hr IV.CONT TITRATE PRN; Protocol PRN Reason: See protol Last Admin: 08/17/18 17:17 Dose: 300 mcg/min, 56.25 mls/hr Amiodarone HCl 450 mg/ (Dextrose) 250 mls @ 33.33 mls/hr IV.CONT TITRATE PRN; Protocol PRN Reason: Per Protocol Vasopressin 40 unit/ Sodium (Chloride) 100 mls @ 6 mls/hr IV.CONT CONT KATHERINE; Protocol Last Admin: 08/17/18 21:33 Dose: 0.04 units/min, 6 mls/hr Oxacillin Sodium 2 gm/ Sodium (Chloride) 100 mls @ 200 mls/hr IV.SIG Q4H [facility] Last Infusion: 08/17/18 20:33 Dose: Infused Insulin Aspart (Novolog Insulin Correctional Sugar Inj) 0 unit SQ Q4HR [facility]; Protocol Last Admin: 08/17/18 20:50 Dose: 7 unit Lactulose (Lactulose Liq) 30 ml PO DAILY PRN PRN Reason: SEVERE CONSITIPATION Magnesium Oxide (Mag-Ox) 800 mg PO UNSCH PRN PRN Reason: For Magnesium 1.2 - 1.6 mg/dL Miscellaneous Information ([facility] Ordered Lab Info) 0 each OTHER ONCE ONE Stop: 08/18/18 10:46 Miscellaneous Medication () 1 each OROPHARYNG 0000,0400,1200,1600 [facility] Last Admin: 08/17/18 15:53 Dose: 1 each Multi-Ingredient Mouthwash/Gargle (Magic Mouthwash Adult Liq) 10 ml SWISH-SWAL QID [facility] Last Admin: 08/17/18 20:03 Dose: 10 ml Naloxone HCl (Narcan Inj) 0.4 mg IV.PUSH UNSCH PRN PRN Reason: SEE LABEL COMMENTS Ondansetron HCl (Zofran Inj) 4 mg IV.PUSH Q6H PRN PRN Reason: NAUSEA OR VOMITING Pantoprazole Sodium (Protonix Inj) 40 mg IV.PUSH BID [facility] Last Admin: 08/17/18 20:04 Dose: 40 mg Polyethylene Glycol (Miralax) 17 gm PO DAILY [facility] Last Admin: 08/17/18 08:24 Dose: Not Given Potassium Bicarb/Potassium Chloride (K-Lyte Cl Eff) 50 meq PO UNSCH PRN PRN Reason: For Potassium 3.3 - 3.5 mEq/L Last Admin: 08/07/18 22:30 Dose: 50 meq Potassium Phosphate (K-Phos Original) 2,000 mg PO Q4H PRN PRN Reason: Phosphorus Less Than 2.5 mg/dL Last Admin: 08/06/18 15:48 Dose: 2,000 mg Potassium Phosphate (K-Phos Original) 2,000 mg PO UNSCH PRN PRN Reason: SEE LABEL COMMENTS Romiplostim (Nplate Inj) 89 mcg SQ Q7D [facility] Last Admin: 08/16/18 10:00 Dose: Not Given Senna/Docusate Sodium (Lisa-Colace) 1 tab PO BID [facility] Last Admin: 08/17/18 20:03 Dose: 1 tab Sennosides (Senokot) 17.2 mg PO Q12H PRN PRN Reason: Moderate Constipation Sodium Chloride (Ns Flush) 2 ml IV.FLUSH BID [facility] Last Admin: 08/17/18 20:03 Dose: 2 ml Sodium Chloride (Ns Flush) 2 ml IV.FLUSH PRN PRN PRN Reason: FLUSH AFTER USING IV ACCESS Last Admin: 08/13/18 10:16 Dose: 2 ml Tamsulosin HCl (Flomax) 0.4 mg PO DAILY [facility] Last Admin: 08/14/18 13:15 Dose: Not Given Terbutaline Sulfate (Brethine Inj) 1 mg SQ UNSCH PRN PRN Reason: For Extravasation Allergies Allergy/AdvReac Type Severity Reaction Status Date / Time No Known Allergies Allergy Verified 08/02/18 03:15 Home Medications Medication Instructions Recorded Confirmed Type atenolol 25 mg PO DAILY 08/02/18 08/02/18 History chlorpheniramine maleate 4 mg PO Q4H 08/02/18 08/02/18 History [Chlor-Trimeton] metformin 1,000 mg PO BID 08/02/18 08/02/18 History pantoprazole [Protonix] 40 mg PO DAILY 08/02/18 08/02/18 History pioglitazone [Actos] 45 mg PO DAILY 08/02/18 08/02/18 History sitagliptin [Januvia] 100 mg PO DAILY 08/02/18 08/02/18 History tamsulosin 0.4 mg PO DAILY 08/02/18 08/02/18 History Physical Exam Vital signs: Vital Signs 08/16/18 23:00 08/17/18 00:00 08/17/18 00:18 Temperature 98.4 F Pulse Rate 78 75 75 Respiratory Rate 16 16 16 Pulse Oximetry 99 99 08/17/18 01:18 08/17/18 03:32 08/17/18 04:00 Temperature 98.4 F Pulse Rate 81 77 Respiratory Rate 16 16 16 Pulse Oximetry 100 100 08/17/18 04:08 08/17/18 08:00 08/17/18 08:58 Temperature 96.8 F L Pulse Rate 66 66 Respiratory Rate 16 12 14 Pulse Oximetry 97 100 08/17/18 11:00 08/17/18 11:15 08/17/18 11:28 Temperature Pulse Rate 77 68 70 Respiratory Rate 14 12 14 Pulse Oximetry 100 99 99 08/17/18 11:30 08/17/18 11:45 08/17/18 12:00 Temperature 96.9 F L Pulse Rate 68 68 70 Respiratory Rate 12 12 12 Pulse Oximetry 99 100 100 08/17/18 16:00 08/17/18 16:38 08/17/18 20:00 Temperature 97.4 F L 98.4 F Pulse Rate 72 72 76 Respiratory Rate 12 13 12 Pulse Oximetry 99 98 98 08/17/18 20:16 08/17/18 20:25 Temperature Pulse Rate 77 Respiratory Rate 13 13 Pulse Oximetry 98 Intake & Output 08/17/18 08/17/18 08/18/18 06:59 18:59 06:59 Intake Total 700 / 700 2049 455 / 455 Output Total 1800 / 1800 1200 / 1200 Balance -1100 / -1100 850 / 850 455 / 455 Weight 82.9 kg Intake: IV 700 / 700 2049 455 / 455 Levophed Inj 16 MG In NS Inj 250 / 250 234 ML @ 2 MCG/MIN 1.87 mls/hr IV.CONT TITRATE PRN Rx#: [id number] Neosynephrine Inj 160 MG In NS 500 / 500 500 / 500 Inj 484 ML @ 40 MCG/MIN 7.5 mls /hr IV.CONT TITRATE PRN Rx#: [id number] Diprivan 1000 mg/100 ml Inj 1, 0 / 0 000 mg In 100 ml @ 5 MCG/KG/MIN 2.508 mls/hr IV.CONT TITRATE PRN Rx#:[id number] Pitressin Inj 40 UNIT In NS Inj 100 / 100 100 / 100 98 ML @ 0.04 UNITS/MIN 6 mls/ hr IV.CONT CONT KATHERINE Rx#: [id number] Prostaphlin Inj 2 GM In NS Inj 200 / 200 105 / 105 100 ML @ 200 mls/hr IV.SIG Q4H [facility] Rx#:[id number] NS Inj 1,000 ML @ Wide Open IV. 1000 / 1000 SIG BOLUS ONE Rx#:[id number] Ancef Inj 1,000 MG In NS Inj 100 / 100 100 / 100 100 ML @ 200 mls/hr IV.SIG Q8H [facility] Rx#:[id number] fentaNYL 10 mcg/mL Premix Drip 250 / 250 2,500 mcg In 250 ml @ 50 MCG/HR 5 mls/hr IV.SIG TITRATE PRN Rx #:[id number] Output: Urine 1800 / 1800 Urine Amount (Catheter) 1200 / 1200 Indwelling Urethral Catheter 1200 / 1200 Gastric Drainage 0 / 0 Oral Orogastric Tube 0 / 0 Other: Date of Last Bowel Movement 08/16/18 # Bowel Movements 1 0 Narrative: GENERAL: Intubated and sedated SKIN: Warm and dry. HEAD: Normocephalic. EYES: No scleral icterus. No injection or drainage. NECK: Supple, trachea midline. No JVD. CARDIOVASCULAR: Tachycardia without murmurs, gallops, or rubs. RESPIRATORY: Decreased breath sounds bilaterally GASTROINTESTINAL: Abdomen soft, non-tender, nondistended. MUSCULOSKELETAL: No cyanosis, or edema. BACK: Nontender without obvious deformity. No CVA tenderness. - Urinary Catheter Management Indwelling Urethral Catheter Cath placed during this visit: yes Reason for continuing: Acute urinary retention Insertion date: 08/16/18 Insertion time: 20:00 Results 08/17/18 05:10 08/17/18 05:10 Cardiac Enzymes 08/16/18 08/16/18 08/17/18 Range/Units 09:10 16:15 05:10 AST 29 48 H (15-37) U/L Troponin I 0.16 H 0.18 H (0.02-0.05) ng/mL Coagulation 08/17/18 Range/Units 05:10 PT 12.7 H (9.8-11.6) sec APTT 28.0 (24.3-30.1) sec CBC 08/16/18 08/17/18 Range/Units 06:00 05:10 WBC 14.8 H 21.5 H (4.0-11.0) th/mm3 RBC 3.31 L 3.11 L (4.50-5.90) mil/mm3 Hgb 9.3 L 8.7 L (13.0-17.0) gm/dL Hct 28.9 L 26.2 L (39.0-51.0) % Plt Count 27 L 39 L D (150-450) th/mm3 Neut # (Auto) 13.9 H 20.2 H (1.8-7.7) th/mm3 Lymph # (Auto) 0.4 L 0.6 L (1.0-4.8) th/mm3 [place] # (Auto) 0.5 0.7 (0.0-0.9) th/mm3 Eos # (Auto) 0.0 0.0 (0.0-0.4) th/mm3 Baso # (Auto) 0.0 0.0 (0.0-0.2) th/mm3 Comprehensive Metabolic Panel 08/16/18 08/16/18 08/17/18 Range/Units 06:00 09:10 05:10 Sodium 145 150 H (136-145) meq/L Potassium 3.9 3.5 (3.5-5.1) meq/L Chloride 108 H 116 H D (98-107) meq/L Carbon Dioxide 23.5 24.8 (21.0-32.0) meq/L BUN 99 H 96 H (7-18) mg/dL Creatinine 1.62 H 1.46 H (0.60-1.30) mg/dL Calcium 7.7 L 8.1 L (8.5-10.1) mg/dL Direct Bilirubin 0.7 H (0.0-0.2) mg/dL Indirect Bilirubin 0.6 (0.0-0.8) mg/dL AST 29 48 H (15-37) U/L ALT 36 40 (12-78) U/L Alkaline Phosphatase 89 89 (45-117) U/L Total Protein 6.7 D 6.2 L (6.4-8.2) g/dL Albumin 1.6 L 1.7 L 1.4 L (3.4-5.0) g/dL Intake and Output 08/17/18 08/17/18 08/17/18 06:59 14:59 22:59 Intake Total 700 / 700 1450 / 1450 1055 / 1055 Output Total 1800 / 1800 1200 / 1200 Balance -1100 / -1100 1450 / 1450 -145 / -145 Intake: IV 700 / 700 1450 / 1450 1055 / 1055 Levophed Inj 16 MG In NS Inj 250 / 250 234 ML @ 2 MCG/MIN 1.87 mls/hr IV.CONT TITRATE PRN Rx#: [id number] Neosynephrine Inj 160 MG In NS 500 / 500 500 / 500 Inj 484 ML @ 40 MCG/MIN 7.5 mls /hr IV.CONT TITRATE PRN Rx#: [id number] Diprivan 1000 mg/100 ml Inj 1, 0 / 0 000 mg In 100 ml @ 5 MCG/KG/MIN 2.508 mls/hr IV.CONT TITRATE PRN Rx#:[id number] Pitressin Inj 40 UNIT In NS Inj 100 / 100 100 / 100 98 ML @ 0.04 UNITS/MIN 6 mls/ hr IV.CONT CONT KATHERINE Rx#: [id number] Prostaphlin Inj 2 GM In NS Inj 100 / 100 205 / 205 100 ML @ 200 mls/hr IV.SIG Q4H K[facility]ERINE Rx#:[id number] NS Inj 1,000 ML @ Wide Open IV. 1000 / 1000 SIG BOLUS ONE Rx#:[id number] Ancef Inj 1,000 MG In NS Inj 100 / 100 100 / 100 100 ML @ 200 mls/hr IV.SIG Q8H KATHERINE Rx#:[id number] fentaNYL 10 mcg/mL Premix Drip 250 / 250 2,500 mcg In 250 ml @ 50 MCG/HR 5 mls/hr IV.SIG TITRATE PRN Rx #:[id number] Output: Urine 1800 / 1800 Urine Amount (Catheter) 1200 / 1200 Indwelling Urethral Catheter 1200 / 1200 Gastric Drainage 0 / 0 Oral Orogastric Tube 0 / 0 Other: Date of Last Bowel Movement 08/16/18 # Bowel Movements 1 0 Weight 82.9 kg - Imaging and Cardiology Imaging: Impressions Abdomen/Bladder Ultrasound 08/16/18 00:00 CONCLUSION: 1. Limited examination secondary to bowel gas. 2. No evidence for obstructive uropathy. 3. Mildly echogenic kidneys consistent with medical renal disease. 4. 4.9 cm possible cyst in the inferior pole the right kidney which was not noted on recent CT exam and not demonstrated on sagittal images. Uncertain if this is artifactual. 5. Redemonstration of complex 4.4 cm cyst in the inferior pole of the left kidney. Head CT 08/16/18 00:00 CONCLUSION: 1. Senescent changes without acute intracranial abnormality. . Soft Tissue Neck CT 08/16/18 00:00 CONCLUSION: 1. Asymmetrical enlargement of the left parotid gland with mild diffuse stranding consistent with mild left parotiditis. 2. Bulky bilateral carotid artery plaque. Chest X-Ray 08/16/18 00:18 CONCLUSION: Patchy consolidation or atelectasis in the bases being worse on the left. Cardiomegaly. Chest X-Ray 08/16/18 06:02 CONCLUSION: Cardiomegaly. Chest X-Ray 08/16/18 07:55 CONCLUSION: Satisfactory support line and tube positioning. Slight worsening in aeration, particularly at the left base. Chest X-Ray 08/17/18 06:00 CONCLUSION: Cardiomegaly. Basilar areas of mild consolidation or atelectasis. Assessment and Plan - Assessment (1) Cardiomyopathy Code(s): I42.9 - Cardiomyopathy, unspecified Status: Acute (2) Wide-complex tachycardia Code(s): I47.2 - Ventricular tachycardia Status: Acute (3) Atrial flutter Code(s): I48.92 - Unspecified atrial flutter Status: Acute (4) Hematochezia Code(s): K92.1 - Melena Status: Acute (5) Lower gastrointestinal hemorrhage Code(s): K92.2 - Gastrointestinal hemorrhage, unspecified Status: Acute (6) Anemia Code(s): D64.9 - Anemia, unspecified Status: Acute (7) Thrombocytopenia Code(s): D69.6 - Thrombocytopenia, unspecified Status: Acute (8) Acute GI bleeding Code(s): K92.2 - Gastrointestinal hemorrhage, unspecified Status: Acute (9) Acute hypotension Code(s): I95.9 - Hypotension, unspecified Status: Acute (10) Staphylococcus aureus bacteremia with sepsis Code(s): A41.01 - Sepsis due to Methicillin susceptible Staphylococcus aureus Status: Acute (11) Acute respiratory failure with hypoxia and hypercapnia Code(s): J96.01 - Acute respiratory failure with hypoxia; J96.02 - Acute respiratory failure with hypercapnia Status: Acute - Plan 1) Cardiomyopathy Unsure of cause at this time Unable to undergo ischemic evaluation due to anemia/thrombocytopenia Con't medical management Will need repeat echo in 3 months while on medical management to evaluate ejection fraction Hx of prostate CA No chemotherapeutic agents that are cardiotoxic given 2) Wide complex tachycardia Asymptomatic Probable Aflutter with 2:1 with aberrancy Similar event on EKG from 11/2014 3) Atrial flutter Not a candidate for anti-coagulation or ASA due to thrombocytopenia 4) Hx of Prostate cancer Received chemo and radiation 5) GI bleed Per GI 6) Bacteremia with sepsis Discussed with ID, not a candidate for YANETH at this time due to critical nature If he turns around, then will plan on YANETH to evaluate for endocarditis Agree with palliative care consultation Currently seeing, discussion of comfort care and DNR status
[2018-08-18] MEDS: Oral Hygiene Kit OROPHARYNG SCH ×3 (00:05→11:40)
[2018-08-18] MEDS: Insulin NovoLOG Aspart Correctional Sugar Inj SQ SCH ×4 (00:05→11:40)
[2018-08-18] MEDS: Phenylephrine Inj 160 MG in Sodium Chlor 0.9% Inj 484 ML IV.CONT PRN (02:11)
[2018-08-18] MEDS: Hydrocortisone Sod Succinate 100 MG Vial IV.PUSH SCH (05:14)
[2018-08-18] MEDS: Pantoprazole Inj 40 MG Vial IV.PUSH SCH (08:32)
[2018-08-18] MEDS: Senna/Docusate Sodium 8.6/50 MG Tablet PO SCH (08:33)
[2018-08-18] MEDS: Polyethylene Glycol 3350 17 GM Packet PO SCH (08:33)
[2018-08-18] MEDS: Nystatin/Diphenhydramine/Lidocaine Mouthwash (Adult) 120 ML Botttle SWISH-SWAL SCH ×2 (08:33→13:18)
[2018-08-18] MEDS: Carboxymethylcellulose 0.5% Opth Drops 15 ML Bottle EACH EYE SCH (08:33)
[2018-08-18] MEDS: Chlorhexidine 0.12% Oral Kit 15 ML UDC OROPHARYNG SCH (08:33)
--- NOTE | 2018-08-18 08:37 | P.PNCC ---
Subjective Subjective Remarks/Hospital Course: 83-year-old very pleasant gentleman with history of prostate cancer on hormonal therapy with the last course received in end of May, presents with generalized weakness and gross blood on rectal exam with very loose watery blood. Patient initially was hypotensive prior to arrival with the blood pressure 80/50, after liter of fluid prior to arrival by EVAC the patient's blood pressure now 120/59. Laboratory abnormalities notable for a platelet count of 7000, hemoglobin of 7.1. These are critical levels and a 6 pack of platelets as well as 2 PRBCs now and 2 in reserve been ordered by ED attending, as well as Protonix drip, and octreotide. The patient does have a history of prostate cancer, he has been on Firmagon from his urology/oncologist. 08/03 Patient is lying in bed in NAD. s/p 2u PLT and 2u PRBC yesterday PLT 5 this morning. 08/04 No events overnight. s/p transfusion 1u PLT and 1 u PRBC yesterday PLT count 14 last night from 5. 08/05 Patient s/p transfusion 2u PRBC and 1u PLT since yesterday. Afebrile. PLT count 16 last night. 08/06 Patient seems confused and agitated this morning however he is awake and oriented to time and place. Afebrile. 08/07 Patient is lying in bed in NAD. PLT 28 this morning. 08/08: Resting in bed and somewhat confused and depressed that his platelets continue to drop. Plates were 14 this morning. He will remain stable. Tolerating diet. 08/09: Resting in bed. Less confused this a.m. Complaining of hematomas from blood draws. Being transfused 1 PRBC and 1 platelets today. Received IVIG yesterday at this hospital does not have RhoGam available 08/10: more somnolent today, but non-focal. still arouses to voice and is appropriate. more fatigued today. hgb stable. abg normal. obtained non- contrasted head CT given severe thrombocytopenia: negative for acute bleed. plt down to 20k today: giving 1 unit. ROS otherwise negative except for fatigue. SUBJECTIVE 08/16: Halicat called at 6 AM to room 236 secondary to acute altered mental status/worsening hypoxia on BiPAP. Patient has minimal response. Chest x-ray revealed no acute cardiopulmonary findings. Due to altered mental status and hypotension decision made to orotracheally intubate. Judith was notified. She will see her . Currently on norepinephrine drip to maintain mean artery pressure greater than 65. When stabilized, CT brain will be performed along with multiple laboratories. Left IJ CVL and left femoral arterial line have been placed. 08/17: Rapid and aggressive resuscitation by Dr. Alvarado yesterday has reversed a profound lactic acidosis and improved the patient's hemodynamic instability. Staph bacteremia is prevalent and the source is unclear. Endocarditis is a high likelihood. The patient remains in critically ill condition and will have a tough time surviving this disease process. We will look to the family and palliative care service today to help guide us as to the continued aggressiveness of the resuscitation. 08/18: Patient continues to deteriorate with increasing leukocytosis and increasing requirements for vasopressor infusion. Family has specifically requested that we attempt to keep him alive until a son can get here from [place]. This is likely to be difficult. Objective Vital Signs / I&O: Vital Signs 08/17/18 08:58 08/17/18 11:00 08/17/18 11:15 Temperature Pulse Rate 66 77 68 Respiratory Rate 14 14 12 Pulse Oximetry 100 100 99 08/17/18 11:28 08/17/18 11:30 08/17/18 11:45 Temperature Pulse Rate 70 68 68 Respiratory Rate 14 12 12 Pulse Oximetry 99 99 100 08/17/18 12:00 08/17/18 16:00 08/17/18 16:38 Temperature 96.9 F L 97.4 F L Pulse Rate 70 72 72 Respiratory Rate 12 12 13 Pulse Oximetry 100 99 98 08/17/18 20:00 08/17/18 20:16 08/17/18 20:25 Temperature 98.4 F Pulse Rate 76 77 Respiratory Rate 12 13 13 Pulse Oximetry 98 98 08/17/18 23:54 08/18/18 00:00 08/18/18 04:00 Temperature 99.6 F 99 F Pulse Rate 89 55 L 80 Respiratory Rate 13 15 13 Pulse Oximetry 98 100 100 08/18/18 04:07 08/18/18 04:08 08/18/18 08:11 Temperature Pulse Rate 81 82 Respiratory Rate 12 16 15 Pulse Oximetry 98 Intake & Output 08/17/18 08/18/18 08/18/18 18:59 06:59 18:59 Intake Total 2049 1165 / 1165 Output Total 1200 / 1200 1250 / 1250 Balance 850 / 850 -85 / -85 Weight 83.5 kg Intake: IV 2049 1165 / 1165 Levophed Inj 16 MG In NS Inj 250 / 250 234 ML @ 2 MCG/MIN 1.87 mls/hr IV.CONT TITRATE PRN Rx#: [id number] Neosynephrine Inj 160 MG In NS 500 / 500 500 / 500 Inj 484 ML @ 40 MCG/MIN 7.5 mls /hr IV.CONT TITRATE PRN Rx#: [id number] Diprivan 1000 mg/100 ml Inj 1, 0 / 0 000 mg In 100 ml @ 5 MCG/KG/MIN 2.508 mls/hr IV.CONT TITRATE PRN Rx#:[id number] Pitressin Inj 40 UNIT In NS Inj 100 / 100 98 ML @ 0.04 UNITS/MIN 6 mls/ hr IV.CONT CONT MERON Rx#: [id number] Prostaphlin Inj 2 GM In NS Inj 200 / 200 315 / 315 100 ML @ 200 mls/hr IV.SIG Q4H MERON Rx#:[id number] NS Inj 1,000 ML @ Wide Open IV. 1000 / 1000 SIG BOLUS ONE Rx#:[id number] Ancef Inj 1,000 MG In NS Inj 100 / 100 100 ML @ 200 mls/hr IV.SIG Q8H MERON Rx#:[id number] fentaNYL 10 mcg/mL Premix Drip 250 / 250 2,500 mcg In 250 ml @ 50 MCG/HR 5 mls/hr IV.SIG TITRATE PRN Rx #:[id number] Output: Urine Amount (Catheter) 1200 / 1200 1250 / 1250 Indwelling Urethral Catheter 1200 / 1200 1250 / 1250 Gastric Drainage 0 / 0 Oral Orogastric Tube 0 / 0 Other: Date of Last Bowel Movement 08/16/18 # Bowel Movements 0 Result Diagrams: 08/17/18 05:10 08/17/18 05:10 Objective Remarks: GENERAL: Patient is 83 yo lying in bed currently orotracheally intubated SKIN: Warm and dry. Multiple ecchymoses bilateral upper extremities HEAD: Normocephalic. EYES: No scleral icterus. No injection or drainage. Pupils are about 2 mm bilaterally and reactive. NECK: Supple, trachea midline. No JVD. Left IJ CVL is clean dry and intact CARDIOVASCULAR: Regular rhythm with frequent premature beat S1, S2 predose 4. No murmur or rub, neck veins not distended. RESPIRATORY: Good bilateral air entry on mechanical ventilation. Scattered rhonchi and some mobile secretions. GASTROINTESTINAL: Abdomen soft, non-tender, nondistended. No guarding. Bowel sounds present. MUSCULOSKELETAL: 1+ bilateral lower extremity peripheral edema. Left femoral arterial line, no hematoma Neuro: Sedated and ventilated. Opens eyes. Assessment and Plan - Assessment and Plan Plan: Neuro/Psych: Acute encephalopathy Currently on propofol/fentanyl drips for sedation/analgesia while intubated Goal of RA SS -2 Daily sedation vacation Check CT brain when clinically stable CT brain 08/10: negative acute bleed Acetaminophen 650 q6h as needed fever CV: Lactic acidosis Severe sepsis Acute systolic heart failure History of wide complex tachycardia Atrial flutter with 2-1 aberrancy Atherosclerotic vascular disease Currently on norepinephrine drip at 20mcg/min to maintain mean arterial pressure greater than equal to 65 Check CVP Serial lactates until cleared. Currently greater than 5 Monitor HR and BP keep MAP>65mmHg 08/03 Echo showed severe LV dysfunction with EF 30-35% 08/14 echocardiogram revealed EF 30-35%. Severe LV dysfunction. PA P 34 mmHg. Question mitral valve lesion of posterior leaflet With hypotension will hold lisinopril 2.5mg daily and carvedilol 3.125mg BID. Not a candidate for ASA or systemic anticoagulation due to severe thrombocytopenia Cards has intermittently followed-Dr. Nation Not a candidate for anticoagulation secondary to severe thrombocytopenia Resp: Acute hypoxic hypercapnic respiratory failure [facility] 16/550/ Ventilator bundle Albuterol/ipratropium aerosols every 4 hours with albuterol aerosols every 2 hours as needed dyspnea Spontaneous breathing trials when clinically indicated Follow-up chest x-ray and ABG post intubation Gas exchange acceptable this morning GI: ? GI bleed Proctitis per CT Hypoalbuminemia/moderate protein calorie malnutrition Cholelithiasis Hiatal hernia CT abdomen/pelvis revealed on 08/02 circumcision wall thickening of the rectum question proctitis. Atherosclerotic vessels. Cholelithiasis. Left renal cyst. Cirrhotic liver. Hemoglobin has remained stable. Pantoprazole 40 mg IV twice daily for GI prophylaxis Docusate serum/senna 1 tablet twice daily for bowel regimen along with polythene glycol centigrams daily Check liver function test, amylase and lipase now GI has followed recommend colonoscopy when platelet count has recovered OGT to LIWS start trickle feeds with Glucerna 1.5 if able 20 cc an hour Start Glucerna 1.5 : Hx Prostate ca s/p radiation tx. Acute urinary retention Currently [place] condom catheter. Currently holding while intubated tamsulosin 0.4 mg daily Endo: Acute hyperglycemia History of diabetes mellitus Sliding scale insulin Accu-Cheks to maintain euglycemia/aspart insulin every 4 hours Holding insulin detemir 18 units twice daily while n.p.o. Renal: Acute kidney injury Exophytic complex cystic lesion arising from the lower pole the left kidney measuring 6.5 x 5.1 cm, We will check renal ultrasound and urine electrolytes and eosinophils stat Monitor urine output Accurate I's and O's Heme: Leukocytosis Normocytic anemia ITP Severe thrombocytopenia Followed by hematology. Has received 2 episodes of IV IVIG for ITP. On 08/04 and 10/08 Currently on romiplostim 89 mcg subcu weekly for chronic ITP related thrombocytopenia. On prednisone 50 mg by tube daily per hematology. Has been transfused 6 PRBCs and 6 pack platelets since admission ID: MRSA blood cultures +08/13 Currently on vancomycin. And cefazolin Infectious disease actually following. Recommended YANETH when/if clinically stable to evaluate mitral valve. Blood cultures 07/2144+ for gram-positive cocci. Urine /22 /blood cultures 08/15 pending. FEN: Hypermagnesia Replace electrolytes as clinically indicated MSK: Multiple right rib fractures Cervical degenerative disc disease. CT C-spine degenerative disc change at C5-C6 with broad-based disc osteophyte complex with mass effect on the anterior thecal sac. This comes in close contact with the anterior cord which is poorly visualized. Mild anterior spondylolisthesis of C4 on C5 approximately 2 mm. There is mild retrolisthesis of C5 on C6. Mild disc osteophyte complex at C3-4. Narrowing of the left neural foramina at C2-3 and C3-4 levels as well as narrowing of the right neural foramina at C5-6. Multiple right-sided rib fractures like old seen on CT M/pelvis 08/02. Physical therapy evaluate and treat Access -Left IJ CVL day 2 placed 08/16 -Left femoral arterial line day 1 placed 08/16 Prophylaxis -GI -pantoprazole -DVT -SCD/pharmacological prophylaxis contraindicated with severe thrombocytopenia Overall impression: Patient remains critically ill and septic shock and hemodynamically unstable. He is still requiring vasopressor support albeit at a lesser dose. Overall prognosis remains quite poor and we will need help from the palliative care service and family regarding the ongoing aggressiveness of our attempted resuscitation. Continued deterioration. Critical care 38 minutes aside from procedures.
--- NOTE | 2018-08-18 10:44 | P.PNID ---
Subjective Remarks: Patient remains on the ventilator. Appears lethargic. Discussed with RN. Attempts at reducing vasopressors unsuccessful. Patient blood pressure drops. Afebrile. Culture from 08/16/2018 has staph aureus in 1 bottle. Blood culture from 08/15 has staph aureus cocci in all 4 bottles. Urine culture 08/14 has staph aureus. Previous blood culture from 08/13 has MSSA Sputum culture has normal tamir. This is an 83-year-old white male who was admitted to the hospital on 08/02/2018 with GI bleed. He was noted to have profound thrombocytopenia. 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 His white blood cell count increased from 6.9-14.7 on 08/09/2018 and has steadily been climbing and today it is 19.2. The patient has been lethargic. He was transferred from Intensive Care Unit 1 day ago. His platelet count had increased to 50,000 on 08/09/2018 and it is decreasing and today it is 22,000. The patient is responsive, but feels tired. He appears lethargic. He complains of headache and pain in the elbow joints. He had no fever. ID consulted for positive blood cultures. Lines: Left internal jugular catheter intact. Past Medical History: PAST MEDICAL HISTORY: Diabetes mellitus, psoriasis, left tibia/fibula fracture, prostate cancer. Allergies/Adverse Reactions: Allergies No Known Allergies Allergy (Verified 08/02/18 03:15) Objective Vital Signs 08/17/18 11:00 08/17/18 11:15 08/17/18 11:28 Temperature Pulse Rate 77 68 70 Respiratory Rate 14 12 14 Pulse Oximetry 100 99 99 08/17/18 11:30 08/17/18 11:45 08/17/18 12:00 Temperature 96.9 F L Pulse Rate 68 68 70 Respiratory Rate 12 12 12 Pulse Oximetry 99 100 100 08/17/18 16:00 08/17/18 16:38 08/17/18 20:00 Temperature 97.4 F L 98.4 F Pulse Rate 72 72 76 Respiratory Rate 12 13 12 Pulse Oximetry 99 98 98 08/17/18 20:16 08/17/18 20:25 08/17/18 23:54 Temperature Pulse Rate 77 89 Respiratory Rate 13 13 13 Pulse Oximetry 98 98 08/18/18 00:00 08/18/18 04:00 08/18/18 04:07 Temperature 99.6 F 99 F Pulse Rate 55 L 80 81 Respiratory Rate 15 13 12 Pulse Oximetry 100 100 08/18/18 04:08 08/18/18 08:00 08/18/18 08:11 Temperature 98.1 F Pulse Rate 80 82 Respiratory Rate 16 15 15 Pulse Oximetry 99 98 Intake & Output 08/17/18 08/18/18 08/18/18 18:59 06:59 18:59 Intake Total 2049 1165 / 1165 Output Total 1200 / 1200 1250 / 1250 Balance 850 / 850 -85 / -85 Weight 83.5 kg Intake: IV 2049 1165 / 1165 Levophed Inj 16 MG In NS Inj 250 / 250 234 ML @ 2 MCG/MIN 1.87 mls/hr IV.CONT TITRATE PRN Rx#: [id number] Neosynephrine Inj 160 MG In NS 500 / 500 500 / 500 Inj 484 ML @ 40 MCG/MIN 7.5 mls /hr IV.CONT TITRATE PRN Rx#: [id number] Diprivan 1000 mg/100 ml Inj 1, 0 / 0 000 mg In 100 ml @ 5 MCG/KG/MIN 2.508 mls/hr IV.CONT TITRATE PRN Rx#:[id number] Pitressin Inj 40 UNIT In NS Inj 100 / 100 98 ML @ 0.04 UNITS/MIN 6 mls/ hr IV.CONT CONT MERON Rx#: [id number] Prostaphlin Inj 2 GM In NS Inj 200 / 200 315 / 315 100 ML @ 200 mls/hr IV.SIG Q4H MERON Rx#:[id number] NS Inj 1,000 ML @ Wide Open IV. 1000 / 1000 SIG BOLUS ONE Rx#:[id number] Ancef Inj 1,000 MG In NS Inj 100 / 100 100 ML @ 200 mls/hr IV.SIG Q8H MERON Rx#:[id number] fentaNYL 10 mcg/mL Premix Drip 250 / 250 2,500 mcg In 250 ml @ 50 MCG/HR 5 mls/hr IV.SIG TITRATE PRN Rx #:[id number] Output: Urine Amount (Catheter) 1200 / 1200 1250 / 1250 Indwelling Urethral Catheter 1200 / 1200 1250 / 1250 Gastric Drainage 0 / 0 Oral Orogastric Tube 0 / 0 Other: Date of Last Bowel Movement 08/16/18 # Bowel Movements 0 08/16/18 14:30 Blood - Peripheral Aerobic Blood Culture - Final Staphylococcus aureus 08/16/18 14:30 Blood - Peripheral Anaerobic Blood Culture - Preliminary No growth in 1 day 08/16/18 19:11 Sputum - Endotracheal Gram Stain - Final 08/16/18 19:11 Sputum - Endotracheal Sputum Culture - Preliminary Heavy growth normal respiratory tamir at 24 hours 08/15/18 11:03 Blood - Peripheral Aerobic Blood Culture - Final Staphylococcus aureus 08/15/18 11:03 Blood - Peripheral Anaerobic Blood Culture - Final Staphylococcus aureus 08/15/18 11:09 Blood - Peripheral Aerobic Blood Culture - Final Staphylococcus aureus 08/15/18 11:09 Blood - Peripheral Anaerobic Blood Culture - Final Staphylococcus aureus 08/14/18 21:47 Clean Catch Urine Urine Culture - Final Staphylococcus aureus 08/13/18 09:11 Blood - Peripheral Aerobic Blood Culture - Final Staphylococcus aureus 08/13/18 09:11 Blood - Peripheral Anaerobic Blood Culture - Final Staphylococcus aureus 08/13/18 09:17 Blood - Peripheral Aerobic Blood Culture - Final Staphylococcus aureus 08/13/18 09:17 Blood - Peripheral Anaerobic Blood Culture - Final Staphylococcus aureus Lab - Hematology Results 08/17/18 05:10 WBC 21.5 H RBC 3.11 L Hgb 8.7 L Hct 26.2 L MCV 84.4 MCH 28.1 MCHC 33.3 RDW 17.8 H Plt Count 39 L D MPV 11.4 H Prelim Diff (Auto) Slide review pending Neut % (Auto) 94.0 H Lymph % (Auto) 2.7 L Slope % (Auto) 3.2 Eos % (Auto) 0.0 Baso % (Auto) 0.1 Neut # (Auto) 20.2 H Lymph # (Auto) 0.6 L [place] # (Auto) 0.7 Eos # (Auto) 0.0 Baso # (Auto) 0.0 WBC Differential . Diff Scan Auto diff confirmed Differential Comment . Toxic Granulation 1+ H Lab - Chemistry Results 08/16/18 08/16/18 08/16/18 09:10 12:41 12:42 Sodium Potassium Chloride Carbon Dioxide Anion Gap BUN Creatinine Estimated GFR POC Glucose 356 H 305 H Random Glucose Lactic Acid Calcium Phosphorus Magnesium Total Bilirubin AST ALT Alkaline Phosphatase Troponin I Total Protein Albumin Procalcitonin 3.32 H TSH Free T3 Total T3 08/16/18 08/16/18 08/16/18 16:03 16:15 16:15 Sodium Potassium Chloride Carbon Dioxide Anion Gap BUN Creatinine Estimated GFR POC Glucose 279 H Random Glucose Lactic Acid 5.7 H* Calcium Phosphorus Magnesium Total Bilirubin AST ALT Alkaline Phosphatase Troponin I 0.18 H Total Protein Albumin Procalcitonin TSH Free T3 1.03 L Total T3 08/16/18 08/16/18 08/16/18 16:15 19:54 20:00 Sodium Potassium Chloride Carbon Dioxide Anion Gap BUN Creatinine Estimated GFR POC Glucose 248 H Random Glucose Lactic Acid 3.6 H Calcium Phosphorus Magnesium Total Bilirubin AST ALT Alkaline Phosphatase Troponin I Total Protein Albumin Procalcitonin TSH Free T3 Total T3 41 L 08/17/18 08/17/18 08/17/18 00:00 04:02 05:10 Sodium Potassium Chloride Carbon Dioxide Anion Gap BUN Creatinine Estimated GFR POC Glucose 181 H 135 H Random Glucose Lactic Acid 2.1 H Calcium Phosphorus Magnesium Total Bilirubin AST ALT Alkaline Phosphatase Troponin I Total Protein Albumin Procalcitonin TSH Free T3 Total T3 08/17/18 08/17/18 08/17/18 05:10 08:14 09:32 Sodium 150 H Potassium 3.5 Chloride 116 H D Carbon Dioxide 24.8 Anion Gap 9 BUN 96 H Creatinine 1.46 H Estimated GFR 46 L POC Glucose 184 H Random Glucose 147 H Lactic Acid 2.0 Calcium 8.1 L Phosphorus 3.7 D Magnesium 2.9 H Total Bilirubin 0.9 AST 48 H ALT 40 Alkaline Phosphatase 89 Troponin I Total Protein 6.2 L Albumin 1.4 L Procalcitonin TSH 0.024 L Free T3 Total T3 08/17/18 08/17/18 08/17/18 11:06 15:36 20:08 Sodium Potassium Chloride Carbon Dioxide Anion Gap BUN Creatinine Estimated GFR POC Glucose 213 H 240 H 253 H Random Glucose Lactic Acid Calcium Phosphorus Magnesium Total Bilirubin AST ALT Alkaline Phosphatase Troponin I Total Protein Albumin Procalcitonin TSH Free T3 Total T3 08/17/18 08/18/18 08/18/18 23:57 03:47 08:24 Sodium Potassium Chloride Carbon Dioxide Anion Gap BUN Creatinine Estimated GFR POC Glucose 256 H 188 H 207 H Random Glucose Lactic Acid Calcium Phosphorus Magnesium Total Bilirubin AST ALT Alkaline Phosphatase Troponin I Total Protein Albumin Procalcitonin TSH Free T3 Total T3 Imaging: ITS Impressions Abdomen/Pelvis CT 08/02/18 04:01 CONCLUSION: 1. 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 2. Nonacute findings include severe atherosclerotic disease, cholelithiasis, stable complex cystic lesion of the left kidney measuring 6.5 cm, and cirrhotic liver. Humerus CT 08/11/18 00:00 CONCLUSION: 1. Nonacute appearing right-sided rib fractures. 2. No evidence for humerus fracture. 3. Note is made of ascites in the upper abdomen. Cervical Spine CT 08/12/18 00:00 CONCLUSION: 1. Degenerative disc change at C5-C6 with broad-based disc osteophyte complex with mass effect on the anterior thecal sac. This comes in close contact with the anterior cord which is poorly visualized. 2. Mild anterior spondylolisthesis of C4 on C5 approximately 2 mm. There is mild retrolisthesis of C5 on C6. 3. Mild disc osteophyte complex at C3-4. 4. Narrowing of the left neural foramina at C2-3 and C3-4 levels as well as narrowing of the right neural foramina at C5-6. Neck Ultrasound 08/15/18 00:00 CONCLUSION: 1. Unremarkable study. Abdomen/Bladder Ultrasound 08/16/18 00:00 CONCLUSION: 1. Limited examination secondary to bowel gas. 2. No evidence for obstructive uropathy. 3. Mildly echogenic kidneys consistent with medical renal disease. 4. 4.9 cm possible cyst in the inferior pole the right kidney which was not noted on recent CT exam and not demonstrated on sagittal images. Uncertain if this is artifactual. 5. Redemonstration of complex 4.4 cm cyst in the inferior pole of the left kidney. Head CT 08/16/18 00:00 CONCLUSION: 1. Senescent changes without acute intracranial abnormality. . Soft Tissue Neck CT 08/16/18 00:00 CONCLUSION: 1. Asymmetrical enlargement of the left parotid gland with mild diffuse stranding consistent with mild left parotiditis. 2. Bulky bilateral carotid artery plaque. Chest X-Ray 08/17/18 06:00 CONCLUSION: Cardiomegaly. Basilar areas of mild consolidation or atelectasis. Physical Exam: PHYSICAL EXAMINATION: GENERAL: Awakens to voice. Lethargic. HEENT: Pupils reactive to light. No icterus. Oropharynx intubated. NECK: Obese, Supple without adenopathy. LUNGS: Coarse bilateral rhonchi persist. HEART: Regular S1, S2. No murmurs heard. ABDOMEN: Bowel sounds present. Soft, no tenderness appreciated. EXTREMITIES: No clubbing, cyanosis or edema. Ecchymotic lesions at the upper extremities. SKIN: No diffuse rash. NEUROLOGIC: No gross focal finding. Wheezes hand to command. Assessment and Plan - Plan IMPRESSION: 1. Bacteremia/septic shock due to non-methicillin staph aureus. Culture still positive. Urine culture also had staph aureus. Possible infection originated from the urine system. questionable etiology. 2D echocardiogram suggest possible vegetation on mitral valve. This makes possibility of endocarditis likely Particularly with continued positive blood culture. 2. Idiopathic thrombocytopenic purpura status post treatment. 3. Leukocytosis. 4. History of prostate cancer. 5. Acute renal insufficiency. 6. Acute respiratory failure. Intubated. RECOMMENDATIONS: 1. Continue oxacillin. 2. Monitor clinical status and temperature. 3. Monitor white blood cell count. Noted that plans for potential withdrawal of life support today.
[2018-08-18] MEDS ORDERED: Pharmacy Ordered Lab Info OTHER ONE (10:45)
[2018-08-18] MEDS: Norepinephrine Inj 16 MG in Sodium Chlor 0.9% Inj 234 ML IV.CONT PRN (11:43)
[2018-08-18 12:01] VITALS: PULSE 102
[2018-08-18 12:03] VITALS: RESP 17; TEMP 98.3; O2SAT 99
[2018-08-18] MEDS ORDERED: Hyoscyamine Inj 0.5 MG/ML Ampul IV.PUSH ONE (13:15)
[2018-08-18] MEDS ORDERED: Bisacodyl 10 MG Supp RECTAL PRN (13:15)
[2018-08-18] MEDS ORDERED: Hyoscyamine Inj 0.5 MG/ML Ampul IV.PUSH PRN (13:15)
[2018-08-18] MEDS ORDERED: HYDROmorphone PF Inj 1 MG/ML Ampul IV.PUSH ONE ×2 (13:15)
[2018-08-18] MEDS ORDERED: HYDROmorphone PF Inj 1 MG/ML Ampul IV.PUSH PRN (13:15)
[2018-08-18] MEDS ORDERED: Acetaminophen 650 MG Supp RECTAL PRN (13:15)
--- NOTE | 2018-08-18 13:51 | P.PNPAL ---
Reason for Visit Reason for visit: a. To assist with evaluation and management of symptoms including: Dyspnea, pain b. To assist medical decision maker(s) with: better understanding of current medical conditions; weighing benefits/burdens of medical treatment options; making medical treatment decisions. Subjective Subjective/Interval History: Follow up medically necessary for further discussion regarding goals of medical treatment. Patient remains intubated on a mechanical ventilator. Bedside RN reports that efforts to titrate down vasopressors he has been unsuccessful. Vasopressors had been titrated up overnight to maintain mean arterial pressure greater than 60. Patient minimally responsive today. Worsening leukocytosis. Laboratory workup today revealing WBC 21.5, hemoglobin 8.7, hematocrit 26.2, platelet count 39. Patient son Scout Dorado arrived from [place] last night. Currently at bedside with patient's spouse Linda. Provided patient's son with an update of patient's hospital course and treatment rendered thus far as well as complications that patient has been facing during this hospitalization. Patient' s Linda Butterfield with the support of patient's son Ave Butterfield and patient's other children have decided to proceed with compassionately withdraw patient from life support given multiple ongoing comorbidities, complications he has faced during this hospitalization and poor prognosis. Family states that they do not want patient to continue suffering. They no longer want aggressive treatment. Hospice consulted for comfort measures only per family request. Exhibit B (consent to withdrawal/withholding of life prolonging procedures or measures) by patient's spouse and exhibit C (determination of patient condition physician certification of patient condition) signed patient spouse would like patient to be transferred fed to a hospice care center if he is stable for transport status post compassionate withdrawal from life support. Discussed withdrawal of life support process, family requested that patient be kept comfortable. Water Softener Servicer And Installer Luis at bedside per family request. Case discussed with Dr. Monahan, bedside RN Belén, hospice home care coordinator and case packer and sealer. . Family/Friend Interactions: See interval note. . Advance Directives Living Will: Completed, but not made available Durable Power of Teacher Physically Impaired: Completed, but not made available Health Care Surrogate Name and Number: HCP: Spouse- Linda Butterfield-[phone] Significant change in goals:: Patient spouse with the support of patient's children have decided to proceed with compassionate withdrawal from life support. Objective Vital Signs: Vital Signs 08/17/18 16:00 08/17/18 16:38 08/17/18 20:00 Temperature 97.4 F L 98.4 F Pulse Rate 72 72 76 Respiratory Rate 12 13 12 Pulse Oximetry 99 98 98 08/17/18 20:16 08/17/18 20:25 08/17/18 23:54 Temperature Pulse Rate 77 89 Respiratory Rate 13 13 13 Pulse Oximetry 98 98 08/18/18 00:00 08/18/18 04:00 08/18/18 04:07 Temperature 99.6 F 99 F Pulse Rate 55 L 80 81 Respiratory Rate 15 13 12 Pulse Oximetry 100 100 08/18/18 04:08 08/18/18 08:00 08/18/18 08:11 Temperature 98.1 F Pulse Rate 80 82 Respiratory Rate 16 15 15 Pulse Oximetry 99 98 08/18/18 11:48 08/18/18 12:00 Temperature 98.3 F Pulse Rate 102 H Respiratory Rate 13 17 Pulse Oximetry 98 99 Intake & Output 08/17/18 08/18/18 08/18/18 18:59 06:59 18:59 Intake Total 2049 1165 / 1165 850 / 850 Output Total 1200 / 1200 1250 / 1250 Balance 850 / 850 -85 / -85 850 / 850 Weight 83.5 kg Intake: IV 2049 1165 / 1165 850 / 850 Levophed Inj 16 MG In NS Inj 250 / 250 250 / 250 234 ML @ 2 MCG/MIN 1.87 mls/hr IV.CONT TITRATE PRN Rx#: [id number] Neosynephrine Inj 160 MG In NS 500 / 500 500 / 500 500 / 500 Inj 484 ML @ 40 MCG/MIN 7.5 mls /hr IV.CONT TITRATE PRN Rx#: [id number] Diprivan 1000 mg/100 ml Inj 1, 0 / 0 000 mg In 100 ml @ 5 MCG/KG/MIN 2.508 mls/hr IV.CONT TITRATE PRN Rx#:[id number] Pitressin Inj 40 UNIT In NS Inj 100 / 100 98 ML @ 0.04 UNITS/MIN 6 mls/ hr IV.CONT CONT MERON Rx#: [id number] Prostaphlin Inj 2 GM In NS Inj 200 / 200 315 / 315 100 / 100 100 ML @ 200 mls/hr IV.SIG Q4H [facility] Rx#:[id number] NS Inj 1,000 ML @ Wide Open IV. 1000 / 1000 SIG BOLUS ONE Rx#:[id number] Ancef Inj 1,000 MG In NS Inj 100 / 100 100 ML @ 200 mls/hr IV.SIG Q8H [facility] Rx#:[id number] fentaNYL 10 mcg/mL Premix Drip 250 / 250 2,500 mcg In 250 ml @ 50 MCG/HR 5 mls/hr IV.SIG TITRATE PRN Rx #:[id number] Output: Urine Amount (Catheter) 1200 / 1200 1250 / 1250 Indwelling Urethral Catheter 1200 / 1200 1250 / 1250 Gastric Drainage 0 / 0 Oral Orogastric Tube 0 / 0 Other: Date of Last Bowel Movement 08/16/18 # Bowel Movements 0 Physical Exam: CONSTITUTIONAL/GENERAL: This is an adequately nourished patient, in no apparent distress. TUBES/LINES/DRAINS: Orotracheal tube, OG tube, central line, femoral A-line, SKIN: Pale. No jaundice, rashes, or lesions. Ecchymoses on upper extremities. Normothermic not diaphoretic. HEAD: Atraumatic. Normocephalic. EYES: Pupils round, reactive to light. No scleral icterus. No injection or drainage. Fundi not examined. ENT: Hearing grossly normal. Nose without bleeding or purulent drainage. Orotracheal tube & orogastric tube. Moist oral mucosa NECK: Trachea midline. Supple, nontender. CARDIOVASCULAR: Irregular rate and rhythm without murmurs, gallops, or rubs. No JVD. Peripheral pulses symmetric. RESPIRATORY/CHEST: Symmetric, unlabored respirations. Diminished breath sounds in bilateral lower lobes. GASTROINTESTINAL: Abdomen soft, non-tender, nondistended. No guarding. No bowel sounds present. GENITOURINARY: Without palpable bladder distension. Condom catheter MUSCULOSKELETAL: Extremities without clubbing, cyanosis, or edema. No joint tenderness or effusion noted. No calf tenderness. No mottling or clubbing. LYMPHATICS: Did not assess NEUROLOGICAL: Intubated and lightly sedated. Spontaneously moving all 4 extremities. Appears to be responding appropriately by nodding head and shaking head. PSYCHIATRIC: Intubated. Currently calm. Diagnostic Tests Laboratory: Laboratory Results - last 72 hr 08/14/18 08/15/18 08/15/18 21:47 06:15 06:15 WBC RBC Hgb Hct MCV MCH MCHC RDW Plt Count MPV Prelim Diff (Auto) Neut % (Auto) Lymph % (Auto) [place] % (Auto) Eos % (Auto) Baso % (Auto) Neut # (Auto) Lymph # (Auto) [place] # (Auto) Eos # (Auto) Baso # (Auto) WBC Differential Diff Scan Seg Neuts % (Manual) Band Neuts % (Manual) Monocytes % (Manual) Abs Neuts (Manual) Nucleated RBCs/100 WBC Differential Comment Toxic Granulation Platelet Estimate Platelet Morphology PT INR APTT Fibrinogen Puncture Site Patient Temperature O2 Saturation ABG pH ABG pCO2 ABG pO2 ABG HCO3 ABG O2 Content ABG Base Excess ABG Methemoglobin Abhijeet Test Hemoglobin Carboxyhemoglobin O2 Delivery Device Vent Setting Inspired O2 Critical Value Sodium Potassium Chloride Carbon Dioxide Anion Gap BUN Creatinine Estimated GFR POC Glucose Random Glucose Lactic Acid Calcium Phosphorus Magnesium Total Bilirubin Direct Bilirubin Indirect Bilirubin AST ALT Alkaline Phosphatase Ammonia Total Creatine Kinase Troponin I Total Protein Albumin Amylase 302 H Lipase Procalcitonin TSH 0.023 L Free T4 Free T3 Total T3 Urine Color Yellow Urine Clarity Hazy H Urine pH 6.0 Ur Specific [place] 1.012 Urine Protein Negative Urine Glucose (UA) 50 Urine Ketones Negative Urine Occult Blood Moderate H Urine Nitrate Negative Urine Bilirubin Negative Urine Urobilinogen Less than 2 Ur Leukocyte Esterase Large H Urine RBC 2 Urine WBC 48 H Urine WBC Clumps Rare H Ur Squamous Epith Cells <1 Urine Bacteria Occasional H Urine Mucus Few H Micro UA Comment Culture indicated Urine Culture Comments Culture indicated Urine Eosinophils Ur Random Creatinine Ur Random Sodium Vancomycin Trough 08/15/18 08/15/18 08/15/18 13:12 16:59 19:57 WBC RBC Hgb Hct MCV MCH MCHC RDW Plt Count MPV Prelim Diff (Auto) Neut % (Auto) Lymph % (Auto) [place] % (Auto) Eos % (Auto) Baso % (Auto) Neut # (Auto) Lymph # (Auto) [place] # (Auto) Eos # (Auto) Baso # (Auto) WBC Differential Diff Scan Seg Neuts % (Manual) Band Neuts % (Manual) Monocytes % (Manual) Abs Neuts (Manual) Nucleated RBCs/100 WBC Differential Comment Toxic Granulation Platelet Estimate Platelet Morphology PT INR APTT Fibrinogen Puncture Site Patient Temperature O2 Saturation ABG pH ABG pCO2 ABG pO2 ABG HCO3 ABG O2 Content ABG Base Excess ABG Methemoglobin Abhijeet Test Hemoglobin Carboxyhemoglobin O2 Delivery Device Vent Setting Inspired O2 Critical Value Sodium Potassium Chloride Carbon Dioxide Anion Gap BUN Creatinine Estimated GFR POC Glucose 190 H 199 H Random Glucose Lactic Acid 5.6 H* Calcium Phosphorus Magnesium Total Bilirubin Direct Bilirubin Indirect Bilirubin AST ALT Alkaline Phosphatase Ammonia Total Creatine Kinase Troponin I Total Protein Albumin Amylase Lipase Procalcitonin TSH Free T4 Free T3 Total T3 Urine Color Urine Clarity Urine pH Ur Specific [place] Urine Protein Urine Glucose (UA) Urine Ketones Urine Occult Blood Urine Nitrate Urine Bilirubin Urine Urobilinogen Ur Leukocyte Esterase Urine RBC Urine WBC Urine WBC Clumps Ur Squamous Epith Cells Urine Bacteria Urine Mucus Micro UA Comment Urine Culture Comments Urine Eosinophils Ur Random Creatinine Ur Random Sodium Vancomycin Trough 08/16/18 08/16/18 08/16/18 01:15 05:37 05:39 WBC RBC Hgb Hct MCV MCH MCHC RDW Plt Count MPV Prelim Diff (Auto) Neut % (Auto) Lymph % (Auto) [place] % (Auto) Eos % (Auto) Baso % (Auto) Neut # (Auto) Lymph # (Auto) [place] # (Auto) Eos # (Auto) Baso # (Auto) WBC Differential Diff Scan Seg Neuts % (Manual) Band Neuts % (Manual) Monocytes % (Manual) Abs Neuts (Manual) Nucleated RBCs/100 WBC Differential Comment Toxic Granulation Platelet Estimate Platelet Morphology PT INR APTT Fibrinogen Puncture Site Right radial Right brachial Patient Temperature 98.6 98.6 O2 Saturation 92 95 ABG pH 7.46 H 7.46 H ABG pCO2 31 L 30 L ABG pO2 77 94 ABG HCO3 21 L 21 L ABG O2 Content 12.1 12.2 ABG Base Excess -1.9 -2.2 L ABG Methemoglobin 1.8 1.6 Abhijeet Test Present Hemoglobin 9.3 L 9.0 L Carboxyhemoglobin 1.4 1.1 O2 Delivery Device Bipap Bipap Vent Setting 10ipap/5epap Ipap 10/ epap 5 Inspired O2 50 50 Critical Value No No Sodium Potassium Chloride Carbon Dioxide Anion Gap BUN Creatinine Estimated GFR POC Glucose 214 H Random Glucose Lactic Acid Calcium Phosphorus Magnesium Total Bilirubin Direct Bilirubin Indirect Bilirubin AST ALT Alkaline Phosphatase Ammonia Total Creatine Kinase Troponin I Total Protein Albumin Amylase Lipase Procalcitonin TSH Free T4 Free T3 Total T3 Urine Color Urine Clarity Urine pH Ur Specific [place] Urine Protein Urine Glucose (UA) Urine Ketones Urine Occult Blood Urine Nitrate Urine Bilirubin Urine Urobilinogen Ur Leukocyte Esterase Urine RBC Urine WBC Urine WBC Clumps Ur Squamous Epith Cells Urine Bacteria Urine Mucus Micro UA Comment Urine Culture Comments Urine Eosinophils Ur Random Creatinine Ur Random Sodium Vancomycin Trough 08/16/18 08/16/18 08/16/18 06:00 06:00 06:00 WBC 14.8 H RBC 3.31 L Hgb 9.3 L Hct 28.9 L MCV 87.3 MCH 28.0 MCHC 32.1 RDW 17.6 H Plt Count 27 L MPV 13.6 H Prelim Diff (Auto) Slide review pending Neut % (Auto) 94.3 H Lymph % (Auto) 2.5 L [place] % (Auto) 3.1 Eos % (Auto) 0.0 Baso % (Auto) 0.1 Neut # (Auto) 13.9 H Lymph # (Auto) 0.4 L [place] # (Auto) 0.5 Eos # (Auto) 0.0 Baso # (Auto) 0.0 WBC Differential Manual diff final Diff Scan Seg Neuts % (Manual) 82 H Band Neuts % (Manual) 17 H Monocytes % (Manual) 1 Abs Neuts (Manual) 14.7 H Nucleated RBCs/100 WBC 1 H Differential Comment . Toxic Granulation 1+ H Platelet Estimate Low L Platelet Morphology Normal PT INR APTT Fibrinogen Puncture Site Patient Temperature O2 Saturation ABG pH ABG pCO2 ABG pO2 ABG HCO3 ABG O2 Content ABG Base Excess ABG Methemoglobin Abhijeet Test Hemoglobin Carboxyhemoglobin O2 Delivery Device Vent Setting Inspired O2 Critical Value Sodium 145 Potassium 3.9 Chloride 108 H Carbon Dioxide 23.5 Anion Gap 14 BUN 99 H Creatinine 1.62 H Estimated GFR 41 L POC Glucose Random Glucose 203 H Lactic Acid 5.9 H* Calcium 7.7 L Phosphorus 5.0 H Magnesium 3.1 H D Total Bilirubin Direct Bilirubin Indirect Bilirubin AST ALT Alkaline Phosphatase Ammonia Total Creatine Kinase Troponin I Total Protein Albumin 1.6 L Amylase Lipase Procalcitonin TSH Free T4 1.55 H Free T3 Total T3 Urine Color Urine Clarity Urine pH Ur Specific [place] Urine Protein Urine Glucose (UA) Urine Ketones Urine Occult Blood Urine Nitrate Urine Bilirubin Urine Urobilinogen Ur Leukocyte Esterase Urine RBC Urine WBC Urine WBC Clumps Ur Squamous Epith Cells Urine Bacteria Urine Mucus Micro UA Comment Urine Culture Comments Urine Eosinophils Ur Random Creatinine Ur Random Sodium Vancomycin Trough 10/08/16/18 08/16/18 08:14 09:10 09:10 WBC RBC Hgb Hct MCV MCH MCHC RDW Plt Count MPV Prelim Diff (Auto) Neut % (Auto) Lymph % (Auto) [place] % (Auto) Eos % (Auto) Baso % (Auto) Neut # (Auto) Lymph # (Auto) [place] # (Auto) Eos # (Auto) Baso # (Auto) WBC Differential Diff Scan Seg Neuts % (Manual) Band Neuts % (Manual) Monocytes % (Manual) Abs Neuts (Manual) Nucleated RBCs/100 WBC Differential Comment Toxic Granulation Platelet Estimate Platelet Morphology PT INR APTT Fibrinogen Puncture Site Art line Patient Temperature Not Reportable O2 Saturation 97 ABG pH 7.36 L ABG pCO2 40 ABG pO2 286 H ABG HCO3 22 ABG O2 Content 14.1 ABG Base Excess -2.8 L ABG Methemoglobin 1.4 Abhijeet Test Hemoglobin 9.8 L Carboxyhemoglobin 1.1 O2 Delivery Device Ventilator Vent Setting Prvc/ac Inspired O2 100 Critical Value No Sodium Potassium Chloride Carbon Dioxide Anion Gap BUN Creatinine Estimated GFR POC Glucose Random Glucose Lactic Acid Calcium Phosphorus Magnesium Total Bilirubin 1.3 H Direct Bilirubin 0.7 H Indirect Bilirubin 0.6 AST 29 ALT 36 Alkaline Phosphatase 89 Ammonia 44 H Total Creatine Kinase 244 Troponin I 0.16 H Total Protein 6.7 D Albumin 1.7 L Amylase 395 H Lipase 78 Procalcitonin TSH Free T4 Free T3 Total T3 Urine Color Urine Clarity Urine pH Ur Specific [place] Urine Protein Urine Glucose (UA) Urine Ketones Urine Occult Blood Urine Nitrate Urine Bilirubin Urine Urobilinogen Ur Leukocyte Esterase Urine RBC Urine WBC Urine WBC Clumps Ur Squamous Epith Cells Urine Bacteria Urine Mucus Micro UA Comment Urine Culture Comments Urine Eosinophils Ur Random Creatinine Ur Random Sodium Vancomycin Trough 08/16/18 08/16/18 08/16/18 09:10 12:41 12:42 WBC RBC Hgb Hct MCV MCH MCHC RDW Plt Count MPV Prelim Diff (Auto) Neut % (Auto) Lymph % (Auto) [place] % (Auto) Eos % (Auto) Baso % (Auto) Neut # (Auto) Lymph # (Auto) [place] # (Auto) Eos # (Auto) Baso # (Auto) WBC Differential Diff Scan Seg Neuts % (Manual) Band Neuts % (Manual) Monocytes % (Manual) Abs Neuts (Manual) Nucleated RBCs/100 WBC Differential Comment Toxic Granulation Platelet Estimate Platelet Morphology PT INR APTT Fibrinogen Puncture Site Patient Temperature O2 Saturation ABG pH ABG pCO2 ABG pO2 ABG HCO3 ABG O2 Content ABG Base Excess ABG Methemoglobin Abhijeet Test Hemoglobin Carboxyhemoglobin O2 Delivery Device Vent Setting Inspired O2 Critical Value Sodium Potassium Chloride Carbon Dioxide Anion Gap BUN Creatinine Estimated GFR POC Glucose 356 H 305 H Random Glucose Lactic Acid Calcium Phosphorus Magnesium Total Bilirubin Direct Bilirubin Indirect Bilirubin AST ALT Alkaline Phosphatase Ammonia Total Creatine Kinase Troponin I Total Protein Albumin Amylase Lipase Procalcitonin 3.32 H TSH Free T4 Free T3 Total T3 Urine Color Urine Clarity Urine pH Ur Specific [place] Urine Protein Urine Glucose (UA) Urine Ketones Urine Occult Blood Urine Nitrate Urine Bilirubin Urine Urobilinogen Ur Leukocyte Esterase Urine RBC Urine WBC Urine WBC Clumps Ur Squamous Epith Cells Urine Bacteria Urine Mucus Micro UA Comment Urine Culture Comments Urine Eosinophils Ur Random Creatinine Ur Random Sodium Vancomycin Trough 08/16/18 08/16/18 08/16/18 16:03 16:15 16:15 WBC RBC Hgb Hct MCV MCH MCHC RDW Plt Count MPV Prelim Diff (Auto) Neut % (Auto) Lymph % (Auto) [place] % (Auto) Eos % (Auto) Baso % (Auto) Neut # (Auto) Lymph # (Auto) [place] # (Auto) Eos # (Auto) Baso # (Auto) WBC Differential Diff Scan Seg Neuts % (Manual) Band Neuts % (Manual) Monocytes % (Manual) Abs Neuts (Manual) Nucleated RBCs/100 WBC Differential Comment Toxic Granulation Platelet Estimate Platelet Morphology PT INR APTT Fibrinogen Puncture Site Patient Temperature O2 Saturation ABG pH ABG pCO2 ABG pO2 ABG HCO3 ABG O2 Content ABG Base Excess ABG Methemoglobin Abhijeet Test Hemoglobin Carboxyhemoglobin O2 Delivery Device Vent Setting Inspired O2 Critical Value Sodium Potassium Chloride Carbon Dioxide Anion Gap BUN Creatinine Estimated GFR POC Glucose 279 H Random Glucose Lactic Acid 5.7 H* Calcium Phosphorus Magnesium Total Bilirubin Direct Bilirubin Indirect Bilirubin AST ALT Alkaline Phosphatase Ammonia Total Creatine Kinase Troponin I 0.18 H Total Protein Albumin Amylase Lipase Procalcitonin TSH Free T4 Free T3 1.03 L Total T3 Urine Color Urine Clarity Urine pH Ur Specific [place] Urine Protein Urine Glucose (UA) Urine Ketones Urine Occult Blood Urine Nitrate Urine Bilirubin Urine Urobilinogen Ur Leukocyte Esterase Urine RBC Urine WBC Urine WBC Clumps Ur Squamous Epith Cells Urine Bacteria Urine Mucus Micro UA Comment Urine Culture Comments Urine Eosinophils Ur Random Creatinine Ur Random Sodium Vancomycin Trough 08/16/18 08/16/18 08/16/18 16:15 19:54 20:00 WBC RBC Hgb Hct MCV MCH MCHC RDW Plt Count MPV Prelim Diff (Auto) Neut % (Auto) Lymph % (Auto) [place] % (Auto) Eos % (Auto) Baso % (Auto) Neut # (Auto) Lymph # (Auto) [place] # (Auto) Eos # (Auto) Baso # (Auto) WBC Differential Diff Scan Seg Neuts % (Manual) Band Neuts % (Manual) Monocytes % (Manual) Abs Neuts (Manual) Nucleated RBCs/100 WBC Differential Comment Toxic Granulation Platelet Estimate Platelet Morphology PT INR APTT Fibrinogen Puncture Site Patient Temperature O2 Saturation ABG pH ABG pCO2 ABG pO2 ABG HCO3 ABG O2 Content ABG Base Excess ABG Methemoglobin Abhijeet Test Hemoglobin Carboxyhemoglobin O2 Delivery Device Vent Setting Inspired O2 Critical Value Sodium Potassium Chloride Carbon Dioxide Anion Gap BUN Creatinine Estimated GFR POC Glucose 248 H Random Glucose Lactic Acid 3.6 H Calcium Phosphorus Magnesium Total Bilirubin Direct Bilirubin Indirect Bilirubin AST ALT Alkaline Phosphatase Ammonia Total Creatine Kinase Troponin I Total Protein Albumin Amylase Lipase Procalcitonin TSH Free T4 Free T3 Total T3 41 L Urine Color Urine Clarity Urine pH Ur Specific [place] Urine Protein Urine Glucose (UA) Urine Ketones Urine Occult Blood Urine Nitrate Urine Bilirubin Urine Urobilinogen Ur Leukocyte Esterase Urine RBC Urine WBC Urine WBC Clumps Ur Squamous Epith Cells Urine Bacteria Urine Mucus Micro UA Comment Urine Culture Comments Urine Eosinophils Ur Random Creatinine Ur Random Sodium Vancomycin Trough 08/16/18 08/16/18 08/16/18 20:30 20:30 20:30 WBC RBC Hgb Hct MCV MCH MCHC RDW Plt Count MPV Prelim Diff (Auto) Neut % (Auto) Lymph % (Auto) [place] % (Auto) Eos % (Auto) Baso % (Auto) Neut # (Auto) Lymph # (Auto) [place] # (Auto) Eos # (Auto) Baso # (Auto) WBC Differential Diff Scan Seg Neuts % (Manual) Band Neuts % (Manual) Monocytes % (Manual) Abs Neuts (Manual) Nucleated RBCs/100 WBC Differential Comment Toxic Granulation Platelet Estimate Platelet Morphology PT INR APTT Fibrinogen Puncture Site Patient Temperature O2 Saturation ABG pH ABG pCO2 ABG pO2 ABG HCO3 ABG O2 Content ABG Base Excess ABG Methemoglobin Abhijeet Test Hemoglobin Carboxyhemoglobin O2 Delivery Device Vent Setting Inspired O2 Critical Value Sodium Potassium Chloride Carbon Dioxide Anion Gap BUN Creatinine Estimated GFR POC Glucose Random Glucose Lactic Acid Calcium Phosphorus Magnesium Total Bilirubin Direct Bilirubin Indirect Bilirubin AST ALT Alkaline Phosphatase Ammonia Total Creatine Kinase Troponin I Total Protein Albumin Amylase Lipase Procalcitonin TSH Free T4 Free T3 Total T3 Urine Color Urine Clarity Urine pH Ur Specific [place] Urine Protein Urine Glucose (UA) Urine Ketones Urine Occult Blood Urine Nitrate Urine Bilirubin Urine Urobilinogen Ur Leukocyte Esterase Urine RBC Urine WBC Urine WBC Clumps Ur Squamous Epith Cells Urine Bacteria Urine Mucus Micro UA Comment Urine Culture Comments Urine Eosinophils None seen Ur Random Creatinine 27 Ur Random Sodium 12 Vancomycin Trough 08/17/18 08/17/18 08/17/18 00:00 04:02 05:10 WBC RBC Hgb Hct MCV MCH MCHC RDW Plt Count MPV Prelim Diff (Auto) Neut % (Auto) Lymph % (Auto) [place] % (Auto) Eos % (Auto) Baso % (Auto) Neut # (Auto) Lymph # (Auto) [place] # (Auto) Eos # (Auto) Baso # (Auto) WBC Differential Diff Scan Seg Neuts % (Manual) Band Neuts % (Manual) Monocytes % (Manual) Abs Neuts (Manual) Nucleated RBCs/100 WBC Differential Comment Toxic Granulation Platelet Estimate Platelet Morphology PT INR APTT Fibrinogen Puncture Site Patient Temperature O2 Saturation ABG pH ABG pCO2 ABG pO2 ABG HCO3 ABG O2 Content ABG Base Excess ABG Methemoglobin Abhijeet Test Hemoglobin Carboxyhemoglobin O2 Delivery Device Vent Setting Inspired O2 Critical Value Sodium Potassium Chloride Carbon Dioxide Anion Gap BUN Creatinine Estimated GFR POC Glucose 181 H 135 H Random Glucose Lactic Acid 2.1 H Calcium Phosphorus Magnesium Total Bilirubin Direct Bilirubin Indirect Bilirubin AST ALT Alkaline Phosphatase Ammonia Total Creatine Kinase Troponin I Total Protein Albumin Amylase Lipase Procalcitonin TSH Free T4 Free T3 Total T3 Urine Color Urine Clarity Urine pH Ur Specific [place] Urine Protein Urine Glucose (UA) Urine Ketones Urine Occult Blood Urine Nitrate Urine Bilirubin Urine Urobilinogen Ur Leukocyte Esterase Urine RBC Urine WBC Urine WBC Clumps Ur Squamous Epith Cells Urine Bacteria Urine Mucus Micro UA Comment Urine Culture Comments Urine Eosinophils Ur Random Creatinine Ur Random Sodium Vancomycin Trough 08/17/18 08/17/18 08/17/18 05:10 05:10 05:10 WBC 21.5 H RBC 3.11 L Hgb 8.7 L Hct 26.2 L MCV 84.4 MCH 28.1 MCHC 33.3 RDW 17.8 H Plt Count 39 L D MPV 11.4 H Prelim Diff (Auto) Slide review pending Neut % (Auto) 94.0 H Lymph % (Auto) 2.7 L [place] % (Auto) 3.2 Eos % (Auto) 0.0 Baso % (Auto) 0.1 Neut # (Auto) 20.2 H Lymph # (Auto) 0.6 L [place] # (Auto) 0.7 Eos # (Auto) 0.0 Baso # (Auto) 0.0 WBC Differential . Diff Scan Auto diff confirmed Seg Neuts % (Manual) Band Neuts % (Manual) Monocytes % (Manual) Abs Neuts (Manual) Nucleated RBCs/100 WBC Differential Comment . Toxic Granulation 1+ H Platelet Estimate Platelet Morphology PT 12.7 H INR 1.3 APTT 28.0 Fibrinogen 548 H Puncture Site Patient Temperature O2 Saturation ABG pH ABG pCO2 ABG pO2 ABG HCO3 ABG O2 Content ABG Base Excess ABG Methemoglobin Abhijeet Test Hemoglobin Carboxyhemoglobin O2 Delivery Device Vent Setting Inspired O2 Critical Value Sodium 150 H Potassium 3.5 Chloride 116 H D Carbon Dioxide 24.8 Anion Gap 9 BUN 96 H Creatinine 1.46 H Estimated GFR 46 L POC Glucose Random Glucose 147 H Lactic Acid Calcium 8.1 L Phosphorus 3.7 D Magnesium 2.9 H Total Bilirubin 0.9 Direct Bilirubin Indirect Bilirubin AST 48 H ALT 40 Alkaline Phosphatase 89 Ammonia Total Creatine Kinase Troponin I Total Protein 6.2 L Albumin 1.4 L Amylase Lipase Procalcitonin TSH 0.024 L Free T4 Free T3 Total T3 Urine Color Urine Clarity Urine pH Ur Specific [place] Urine Protein Urine Glucose (UA) Urine Ketones Urine Occult Blood Urine Nitrate Urine Bilirubin Urine Urobilinogen Ur Leukocyte Esterase Urine RBC Urine WBC Urine WBC Clumps Ur Squamous Epith Cells Urine Bacteria Urine Mucus Micro UA Comment Urine Culture Comments Urine Eosinophils Ur Random Creatinine Ur Random Sodium Vancomycin Trough 08/17/18 08/17/18 08/17/18 08:14 09:32 11:06 WBC RBC Hgb Hct MCV MCH MCHC RDW Plt Count MPV Prelim Diff (Auto) Neut % (Auto) Lymph % (Auto) [place] % (Auto) Eos % (Auto) Baso % (Auto) Neut # (Auto) Lymph # (Auto) [place] # (Auto) Eos # (Auto) Baso # (Auto) WBC Differential Diff Scan Seg Neuts % (Manual) Band Neuts % (Manual) Monocytes % (Manual) Abs Neuts (Manual) Nucleated RBCs/100 WBC Differential Comment Toxic Granulation Platelet Estimate Platelet Morphology PT INR APTT Fibrinogen Puncture Site Patient Temperature O2 Saturation ABG pH ABG pCO2 ABG pO2 ABG HCO3 ABG O2 Content ABG Base Excess ABG Methemoglobin Abhijeet Test Hemoglobin Carboxyhemoglobin O2 Delivery Device Vent Setting Inspired O2 Critical Value Sodium Potassium Chloride Carbon Dioxide Anion Gap BUN Creatinine Estimated GFR POC Glucose 184 H 213 H Random Glucose Lactic Acid 2.0 Calcium Phosphorus Magnesium Total Bilirubin Direct Bilirubin Indirect Bilirubin AST ALT Alkaline Phosphatase Ammonia Total Creatine Kinase Troponin I Total Protein Albumin Amylase Lipase Procalcitonin TSH Free T4 Free T3 Total T3 Urine Color Urine Clarity Urine pH Ur Specific [place] Urine Protein Urine Glucose (UA) Urine Ketones Urine Occult Blood Urine Nitrate Urine Bilirubin Urine Urobilinogen Ur Leukocyte Esterase Urine RBC Urine WBC Urine WBC Clumps Ur Squamous Epith Cells Urine Bacteria Urine Mucus Micro UA Comment Urine Culture Comments Urine Eosinophils Ur Random Creatinine Ur Random Sodium Vancomycin Trough 08/17/18 08/17/18 08/17/18 15:36 20:08 23:57 WBC RBC Hgb Hct MCV MCH MCHC RDW Plt Count MPV Prelim Diff (Auto) Neut % (Auto) Lymph % (Auto) [place] % (Auto) Eos % (Auto) Baso % (Auto) Neut # (Auto) Lymph # (Auto) [place] # (Auto) Eos # (Auto) Baso # (Auto) WBC Differential Diff Scan Seg Neuts % (Manual) Band Neuts % (Manual) Monocytes % (Manual) Abs Neuts (Manual) Nucleated RBCs/100 WBC Differential Comment Toxic Granulation Platelet Estimate Platelet Morphology PT INR APTT Fibrinogen Puncture Site Patient Temperature O2 Saturation ABG pH ABG pCO2 ABG pO2 ABG HCO3 ABG O2 Content ABG Base Excess ABG Methemoglobin Abhijeet Test Hemoglobin Carboxyhemoglobin O2 Delivery Device Vent Setting Inspired O2 Critical Value Sodium Potassium Chloride Carbon Dioxide Anion Gap BUN Creatinine Estimated GFR POC Glucose 240 H 253 H 256 H Random Glucose Lactic Acid Calcium Phosphorus Magnesium Total Bilirubin Direct Bilirubin Indirect Bilirubin AST ALT Alkaline Phosphatase Ammonia Total Creatine Kinase Troponin I Total Protein Albumin Amylase Lipase Procalcitonin TSH Free T4 Free T3 Total T3 Urine Color Urine Clarity Urine pH Ur Specific [place] Urine Protein Urine Glucose (UA) Urine Ketones Urine Occult Blood Urine Nitrate Urine Bilirubin Urine Urobilinogen Ur Leukocyte Esterase Urine RBC Urine WBC Urine WBC Clumps Ur Squamous Epith Cells Urine Bacteria Urine Mucus Micro UA Comment Urine Culture Comments Urine Eosinophils Ur Random Creatinine Ur Random Sodium Vancomycin Trough 08/18/18 08/18/18 08/18/18 03:47 08:24 10:37 WBC RBC Hgb Hct MCV MCH MCHC RDW Plt Count MPV Prelim Diff (Auto) Neut % (Auto) Lymph % (Auto) [place] % (Auto) Eos % (Auto) Baso % (Auto) Neut # (Auto) Lymph # (Auto) [place] # (Auto) Eos # (Auto) Baso # (Auto) WBC Differential Diff Scan Seg Neuts % (Manual) Band Neuts % (Manual) Monocytes % (Manual) Abs Neuts (Manual) Nucleated RBCs/100 WBC Differential Comment Toxic Granulation Platelet Estimate Platelet Morphology PT INR APTT Fibrinogen Puncture Site Patient Temperature O2 Saturation ABG pH ABG pCO2 ABG pO2 ABG HCO3 ABG O2 Content ABG Base Excess ABG Methemoglobin Abhijeet Test Hemoglobin Carboxyhemoglobin O2 Delivery Device Vent Setting Inspired O2 Critical Value Sodium Potassium Chloride Carbon Dioxide Anion Gap BUN Creatinine Estimated GFR POC Glucose 188 H 207 H Random Glucose Lactic Acid Calcium Phosphorus Magnesium Total Bilirubin Direct Bilirubin Indirect Bilirubin AST ALT Alkaline Phosphatase Ammonia Total Creatine Kinase Troponin I Total Protein Albumin Amylase Lipase Procalcitonin TSH Free T4 Free T3 Total T3 Urine Color Urine Clarity Urine pH Ur Specific [place] Urine Protein Urine Glucose (UA) Urine Ketones Urine Occult Blood Urine Nitrate Urine Bilirubin Urine Urobilinogen Ur Leukocyte Esterase Urine RBC Urine WBC Urine WBC Clumps Ur Squamous Epith Cells Urine Bacteria Urine Mucus Micro UA Comment Urine Culture Comments Urine Eosinophils Ur Random Creatinine Ur Random Sodium Vancomycin Trough 4.0 L Result Diagrams: 08/17/18 05:10 08/17/18 05:10 Microbiology: Microbiology 08/16/18 19:11 Gram Stain - Final Sputum - Endotracheal Sputum Culture - Preliminary Staphylococcus aureus 08/16/18 14:30 Aerobic Blood Culture - Final Blood - Peripheral Staphylococcus aureus Anaerobic Blood Culture - Preliminary No growth in 2 days 08/15/18 11:03 Aerobic Blood Culture - Final Blood - Peripheral Staphylococcus aureus Anaerobic Blood Culture - Final Staphylococcus aureus 08/15/18 11:09 Aerobic Blood Culture - Final Blood - Peripheral Staphylococcus aureus Anaerobic Blood Culture - Final Staphylococcus aureus 08/14/18 21:47 Urine Culture - Final Clean Catch Urine Staphylococcus aureus 08/13/18 09:11 Aerobic Blood Culture - Final Blood - Peripheral Staphylococcus aureus Anaerobic Blood Culture - Final Staphylococcus aureus 08/13/18 09:17 Aerobic Blood Culture - Final Blood - Peripheral Staphylococcus aureus Anaerobic Blood Culture - Final Staphylococcus aureus Imaging: Abdomen/Pelvis CT 08/02/18 04:01 CONCLUSION: 1. 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 2. Nonacute findings include severe atherosclerotic disease, cholelithiasis, stable complex cystic lesion of the left kidney measuring 6.5 cm, and cirrhotic liver. Humerus CT 08/11/18 00:00 CONCLUSION: 1. Nonacute appearing right-sided rib fractures. 2. No evidence for humerus fracture. 3. Note is made of ascites in the upper abdomen. Cervical Spine CT 08/12/18 00:00 CONCLUSION: 1. Degenerative disc change at C5-C6 with broad-based disc osteophyte complex with mass effect on the anterior thecal sac. This comes in close contact with the anterior cord which is poorly visualized. 2. Mild anterior spondylolisthesis of C4 on C5 approximately 2 mm. There is mild retrolisthesis of C5 on C6. 3. Mild disc osteophyte complex at C3-4. 4. Narrowing of the left neural foramina at C2-3 and C3-4 levels as well as narrowing of the right neural foramina at C5-6. Neck Ultrasound 08/15/18 00:00 CONCLUSION: 1. Unremarkable study. Abdomen/Bladder Ultrasound 08/16/18 00:00 CONCLUSION: 1. Limited examination secondary to bowel gas. 2. No evidence for obstructive uropathy. 3. Mildly echogenic kidneys consistent with medical renal disease. 4. 4.9 cm possible cyst in the inferior pole the right kidney which was not noted on recent CT exam and not demonstrated on sagittal images. Uncertain if this is artifactual. 5. Redemonstration of complex 4.4 cm cyst in the inferior pole of the left kidney. Head CT 08/16/18 00:00 CONCLUSION: 1. Senescent changes without acute intracranial abnormality. . Soft Tissue Neck CT 08/16/18 00:00 CONCLUSION: 1. Asymmetrical enlargement of the left parotid gland with mild diffuse stranding consistent with mild left parotiditis. 2. Bulky bilateral carotid artery plaque. Chest X-Ray 08/17/18 06:00 CONCLUSION: Cardiomegaly. Basilar areas of mild consolidation or atelectasis. Procedures: 08/16/18-orotracheal intubation 08/16/18 -left IJ central venous catheter placement 08/16/18-left femoral arterial catheter placement Assessment and Plan - Disease Oriented Problem List (1) Acute respiratory failure with hypoxia and hypercapnia (2) Staphylococcus aureus bacteremia with sepsis (3) Thrombocytopenia (4) Acute kidney injury (5) Acute GI bleeding (6) Anemia (7) Lactic acidosis (8) Cardiomyopathy (9) Atrial flutter (10) Prostate cancer (11) Diabetes mellitus - Symptom Scale (1) Pain 0-10 Scale: Unable to quantify Comment: Patient has been complaining of neck pain. CTA neck on 08/12. (2) Dyspnea 0-10 Scale: Unable to quantify Comment: Patient currently intubated on mechanical ventilator. Pertinent Non-Medical Issues: Psychosocial: Patient is originally from [place]. He moved to [place] in 1999 after snf. Patient has been twice. First is . Currently resides at home with his spouse Linda Butterfield. He has 4 adult children 1 daughter and 3 sons. 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 Spiritual: Patient is Taoist-declined visit from microbiological laboratory technician or tearoom host/hostess. Legal: Unknown if patient is ever completed advance directives. Ethical issues impacting care: None identified at this time. Important Contacts: Spouse-Linda Butterfield-[phone] Son-Ave Butterfield-[phone] . Prognosis: Mr. Butterfield is a 89-year-old patient with a medical history of diabetes mellitus, psoriasis, prostate cancer and left tibia/fibula fracture. Patient was brought to the emergency room by [facility] on 08/02/18 with complaints of worsening bright red blood per rectum with watery stool for a few days. Clinical course complicated with thrombocytopenia, bacteremia, dysphagia, altered mental status and acute respiratory failure. Given multiple ongoing comorbidities patient remains at high risk for further complications, deterioration and decline. . Code Status: No Code DNR Plan: PLAN: Legal decision maker: Patient is currently intubated on mechanical ventilation. It is not known whether patient will regain capacity to make his own medical decisions. According to [place] statute, his spouse Scout Mckeon will serve as his healthcare proxy. Goals: Patient's Linda Butterfield with the support of patient's son Ave Butterfield and patient's other children have decided to proceed with compassionately withdraw patient from life support given multiple ongoing comorbidities, complications he has faced during this hospitalization and poor prognosis. Family states that they do not want patient to continue suffering. Hospice consulted per family request. Patient spouse would like patient to be transferred fed to a hospice care center if he is stable for transport status post compassionate withdrawal from life support. Discussed withdrawal of life support process, family requested that patient be kept comfortable. Water Softener Servicer And Installer Luis at bedside per family request. CODE STATUS: No code DNR SYMPTOMS: * Pain: Patient has been complaining of neck pain. 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 CTA neck on 08/12/18 revealed C-spine degenerative disc change at C5-C6 with broad-based disc osteophyte complex with mass effect on the anterior thecal sac. This comes in close contact with the anterior cord which is poorly visualized. Mild anterior spondylolisthesis of C4 on C5 approximately 2 mm. There is mild retrolisthesis of C5 on C6. Mild disc osteophyte complex at C3-4. Narrowing of the left neural foramina at C2-3 and C3-4 levels as well as narrowing of the right neural foramina at C5-6. Patient was started on fentanyl infusion currently infusing at 50 mcg/h. Patient is not showing any signs of pain at this time. Continue to monitor for pain. * Shortness of breath: Patient has acute systolic heart failure and he went into acute hypoxic Respiratory failure requiring intubation and mechanical ventilator support. Patient is currently on FiO2 30%. Palliative care will continue to follow the patient during hospital course as condition evolves, to assist patient/decision-maker with understanding of their medical conditions, weighing benefits/burdens of treatment options, for clarification of goals of treatment. Additionally will assist with any symptoms of palliative concern Attestation Attestation: To help prompt me to consider important information that might be impacting today's encounter and assessment, information from prior notes written by myself or my colleagues may have been "brought forward" into today's note. My signature on this note, however, is an attestation that I personally performed the exam, history, and/or decision-making noted today, and, unless otherwise indicated, the interactions with patient, family, and staff as well as the review of records all occurred today. I also attest that the listed assessment and stated plan reflect my best clinical judgment today based on the combination of historical information, prior notes, and today's exam/ interactions. When time spent is documented, it refers only to time spent today by the signer, or if indicated, combined time spent today by collaborating physician/nurse practitioner.
[2018-08-18] MEDS ORDERED: HYDROmorphone PF Inj 1 MG/ML Ampul IV.PUSH SCH (16:00)
--- NOTE | 2018-08-18 16:20 | P.DS ---
Date of admission: 08/02/18 04:04 Primary care physician: UNKNOWN Brief History from admission: 83-year-old very pleasant gentleman with history of prostate cancer on hormonal therapy with the last course received in end of May, presents with generalized weakness and gross blood on rectal exam with very loose watery blood. Patient initially was hypotensive prior to arrival with the blood pressure 80/50, after liter of fluid prior to arrival by [facility] the patient's blood pressure now 120/59. Laboratory abnormalities notable for a platelet count of 7000, hemoglobin of 7.1. These are critical levels and a 6 pack of platelets as well as 2 PRBCs now and 2 in reserve been ordered by ED attending, as well as Protonix drip, and octreotide. The patient does have a history of prostate cancer, he has been on Firmagon from his urology/oncologist. Patient update on day of discharge: Family requested withdrawal of artificial support. Patient shortly thereafter. DS: Diagnosis - Discharge Diagnosis (1) Severe sepsis with acute organ dysfunction Status: Acute (2) Acute respiratory failure with hypoxia and hypercapnia Status: Acute (3) Acute GI bleeding Status: Acute (4) Lactic acidosis Status: Acute (5) Lower gastrointestinal hemorrhage Status: Acute (6) Staphylococcus aureus bacteremia with sepsis Status: Acute DS: Summary Hospital Course: 83-year-old very pleasant gentleman with history of prostate cancer on hormonal therapy with the last course received in end of May, presents with generalized weakness and gross blood on rectal exam with very loose watery blood. Patient initially was hypotensive prior to arrival with the blood pressure 80/50, after liter of fluid prior to arrival by [facility] the patient's blood pressure now 120/59. Laboratory abnormalities notable for a platelet count of 7000, hemoglobin of 7.1. These are critical levels and a 6 pack of platelets as well as 2 PRBCs now and 2 in reserve been ordered by ED attending, as well as Protonix drip, and octreotide. The patient does have a history of prostate cancer, he has been on Firmagon from his urology/oncologist. 08/03 Patient is lying in bed in NAD. s/p 2u PLT and 2u PRBC yesterday PLT 5 this morning. 08/04 No events overnight. s/p transfusion 1u PLT and 1 u PRBC yesterday PLT count 14 last night from 5. 08/05 Patient s/p transfusion 2u PRBC and 1u PLT since yesterday. Afebrile. PLT count 16 last night. 08/06 Patient seems confused and agitated this morning however he is awake and oriented to time and place. Afebrile. 08/07 Patient is lying in bed in NAD. PLT 28 this morning. 08/08: Resting in bed and somewhat confused and depressed that his platelets continue to drop. Plates were 14 this morning. He will remain stable. Tolerating diet. 08/09: Resting in bed. Less confused this a.m. Complaining of hematomas from blood draws. Being transfused 1 PRBC and 1 platelets today. Received IVIG yesterday at this hospital does not have RhoGam available 08/10: more somnolent today, but non-focal. still arouses to voice and is appropriate. more fatigued today. hgb stable. abg normal. obtained non- contrasted head CT given severe thrombocytopenia: negative for acute bleed. plt down to 20k today: giving 1 unit. ROS otherwise negative except for fatigue. SUBJECTIVE 08/16: Wyatt called at 6 AM to room 236 secondary to acute altered mental status/worsening hypoxia on BiPAP. Patient has minimal response. Chest x-ray revealed no acute cardiopulmonary findings. Due to altered mental status and hypotension decision made to orotracheally intubate. Judith was notified. She will see her . Currently on norepinephrine drip to maintain mean artery pressure greater than 65. When stabilized, CT brain will be performed along with multiple laboratories. Left IJ CVL and left femoral arterial line have been placed. 08/17: Rapid and aggressive resuscitation by Dr. Alvarado yesterday has reversed a profound lactic acidosis and improved the patient's hemodynamic instability. Staph bacteremia is prevalent and the source is unclear. Endocarditis is a high likelihood. The patient remains in critically ill condition and will have a tough time surviving this disease process. We will look to the family and palliative care service today to help guide us as to the continued aggressiveness of the resuscitation. 08/18: Patient continues to deteriorate with increasing leukocytosis and increasing requirements for vasopressor infusion. Family has specifically requested that we attempt to keep him alive until a son can get here from [place]. - Time Spent with Patient Total time spent providing and/or coordinating discharge services: Greater than 30 minutes - Quality: VTE Deep Vein Thrombosis/Pulmonary Embolism Present on Admission: No Exam Vital signs: Vital Signs 08/17/18 16:38 08/17/18 20:00 08/17/18 20:16 Temperature 98.4 F Pulse Rate 72 76 Respiratory Rate 13 12 13 Pulse Oximetry 98 98 98 08/17/18 20:25 08/17/18 23:54 08/18/18 00:00 Temperature 99.6 F Pulse Rate 77 89 55 L Respiratory Rate 13 13 15 Pulse Oximetry 98 100 08/18/18 04:00 08/18/18 04:07 08/18/18 04:08 Temperature 99 F Pulse Rate 80 81 Respiratory Rate 13 12 16 Pulse Oximetry 100 08/18/18 08:00 08/18/18 08:11 08/18/18 11:48 Temperature 98.1 F Pulse Rate 80 82 Respiratory Rate 15 15 13 Pulse Oximetry 99 98 98 08/18/18 12:00 Temperature 98.3 F Pulse Rate 102 H Respiratory Rate 17 Pulse Oximetry 99 Intake & Output 08/17/18 08/18/18 08/18/18 18:59 06:59 18:59 Intake Total 2049 1165 / 1165 1200 / 1200 Output Total 1200 / 1200 1250 / 1250 Balance 850 / 850 -85 / -85 1200 / 1200 Weight 83.5 kg Intake: IV 2049 1165 / 1165 1200 / 1200 Levophed Inj 16 MG In NS Inj 250 / 250 300 / 300 234 ML @ 2 MCG/MIN 1.87 mls/hr IV.CONT TITRATE PRN Rx#: [id number] Neosynephrine Inj 160 MG In NS 500 / 500 500 / 500 500 / 500 Inj 484 ML @ 40 MCG/MIN 7.5 mls /hr IV.CONT TITRATE PRN Rx#: [id number] Diprivan 1000 mg/100 ml Inj 1, 0 / 0 000 mg In 100 ml @ 5 MCG/KG/MIN 2.508 mls/hr IV.CONT TITRATE PRN Rx#:[id number] Pitressin Inj 40 UNIT In NS Inj 100 / 100 100 / 100 98 ML @ 0.04 UNITS/MIN 6 mls/ hr IV.CONT CONT MERON Rx#: [id number] Prostaphlin Inj 2 GM In NS Inj 200 / 200 315 / 315 100 / 100 100 ML @ 200 mls/hr IV.SIG Q4H MERON Rx#:[id number] NS Inj 1,000 ML @ Wide Open IV. 1000 / 1000 SIG BOLUS ONE Rx#:[id number] Ancef Inj 1,000 MG In NS Inj 100 / 100 100 ML @ 200 mls/hr IV.SIG Q8H [facility] Rx#:[id number] fentaNYL 10 mcg/mL Premix Drip 250 / 250 200 / 200 2,500 mcg In 250 ml @ 50 MCG/HR 5 mls/hr IV.SIG TITRATE PRN Rx #:[id number] Output: Urine Amount (Catheter) 1200 / 1200 1250 / 1250 Indwelling Urethral Catheter 1200 / 1200 1250 / 1250 Gastric Drainage 0 / 0 Oral Orogastric Tube 0 / 0 Other: Date of Last Bowel Movement 08/16/18 # Bowel Movements 0 Narrative: . Results Procedures completed during hospitalization: None Labs on day of discharge: Labs from last 24 hours 08/18/18 08/18/18 08/18/18 10:37 08:24 03:47 Puncture Site Patient Temperature O2 Saturation ABG pH ABG pCO2 ABG pO2 ABG HCO3 ABG O2 Content ABG Base Excess ABG Methemoglobin Hemoglobin Carboxyhemoglobin O2 Delivery Device Vent Setting Inspired O2 Critical Value POC Glucose 207 H 188 H Vancomycin Trough 4.0 L 08/17/18 08/17/18 08/16/18 23:57 20:08 05:39 Puncture Site Right brachial Patient Temperature 98.6 O2 Saturation 95 ABG pH 7.46 H ABG pCO2 30 L ABG pO2 94 ABG HCO3 21 L ABG O2 Content 12.2 ABG Base Excess -2.2 L ABG Methemoglobin 1.6 Hemoglobin 9.0 L Carboxyhemoglobin 1.1 O2 Delivery Device Bipap Vent Setting Ipap 10/ epap 5 Inspired O2 50 Critical Value No POC Glucose 256 H 253 H Vancomycin Trough Preliminary micro results at discharge 08/16/18 19:11 Sputum Culture - Preliminary Sputum - Endotracheal Staphylococcus aureus 08/16/18 14:30 Anaerobic Blood Culture - Preliminary Blood - Peripheral No growth in 2 days - Impressions ITS Impressions Abdomen/Pelvis CT 08/02/18 04:01 CONCLUSION: 1. 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 2. Nonacute findings include severe atherosclerotic disease, cholelithiasis, stable complex cystic lesion of the left kidney measuring 6.5 cm, and cirrhotic liver. Humerus CT 08/11/18 00:00 CONCLUSION: 1. Nonacute appearing right-sided rib fractures. 2. No evidence for humerus fracture. 3. Note is made of ascites in the upper abdomen. Cervical Spine CT 08/12/18 00:00 CONCLUSION: 1. Degenerative disc change at C5-C6 with broad-based disc osteophyte complex with mass effect on the anterior thecal sac. This comes in close contact with the anterior cord which is poorly visualized. 2. Mild anterior spondylolisthesis of C4 on C5 approximately 2 mm. There is mild retrolisthesis of C5 on C6. 3. Mild disc osteophyte complex at C3-4. 4. Narrowing of the left neural foramina at C2-3 and C3-4 levels as well as narrowing of the right neural foramina at C5-6. Neck Ultrasound 08/15/18 00:00 CONCLUSION: 1. Unremarkable study. Abdomen/Bladder Ultrasound 08/16/18 00:00 CONCLUSION: 1. Limited examination secondary to bowel gas. 2. No evidence for obstructive uropathy. 3. Mildly echogenic kidneys consistent with medical renal disease. 4. 4.9 cm possible cyst in the inferior pole the right kidney which was not noted on recent CT exam and not demonstrated on sagittal images. Uncertain if this is artifactual. 5. Redemonstration of complex 4.4 cm cyst in the inferior pole of the left kidney. Head CT 08/16/18 00:00 CONCLUSION: 1. Senescent changes without acute intracranial abnormality. . Soft Tissue Neck CT 08/16/18 00:00 CONCLUSION: 1. Asymmetrical enlargement of the left parotid gland with mild diffuse stranding consistent with mild left parotiditis. 2. Bulky bilateral carotid artery plaque. Chest X-Ray 08/17/18 06:00 CONCLUSION: Cardiomegaly. Basilar areas of mild consolidation or atelectasis. Discharge Plan - Discharge Disposition Patient Disposition: 20 - Discharge Details Date/Time: 08/18/18 15:40 - Physicians Team Primary Care Provider: UNKNOWN, Attending Provider: Bola Alvarado Other Providers: Benedicto Emery MD ; Car Doherty MD ; Gunnar Manzanares MD ; Khalif Nation DO ; Jarrod Greene MD ; Handy Boateng MD ; Chuck Church MD ; Ant Gomez MD
--- NOTE | 2018-08-18 16:22 | P.DS ---
Date of admission: 08/02/18 04:04 Primary care physician: UNKNOWN Brief History from admission: 83-year-old very pleasant gentleman with history of prostate cancer on hormonal therapy with the last course received in end of May, presents with generalized weakness and gross blood on rectal exam with very loose watery blood. Patient initially was hypotensive prior to arrival with the blood pressure 80/50, after liter of fluid prior to arrival by [facility] the patient's blood pressure now 120/59. Laboratory abnormalities notable for a platelet count of 7000, hemoglobin of 7.1. These are critical levels and a 6 pack of platelets as well as 2 PRBCs now and 2 in reserve been ordered by ED attending, as well as Protonix drip, and octreotide. The patient does have a history of prostate cancer, he has been on Firmagon from his urology/oncologist. DS: Summary - Time Spent with Patient Total time spent providing and/or coordinating discharge services: Greater than 30 minutes - Quality: VTE Deep Vein Thrombosis/Pulmonary Embolism Present on Admission: No Exam Vital signs: Vital Signs 08/17/18 16:38 08/17/18 20:00 08/17/18 20:16 Temperature 98.4 F Pulse Rate 72 76 Respiratory Rate 13 12 13 Pulse Oximetry 98 98 98 08/17/18 20:25 08/17/18 23:54 08/18/18 00:00 Temperature 99.6 F Pulse Rate 77 89 55 L Respiratory Rate 13 13 15 Pulse Oximetry 98 100 08/18/18 04:00 08/18/18 04:07 08/18/18 04:08 Temperature 99 F Pulse Rate 80 81 Respiratory Rate 13 12 16 Pulse Oximetry 100 08/18/18 08:00 08/18/18 08:11 08/18/18 11:48 Temperature 98.1 F Pulse Rate 80 82 Respiratory Rate 15 15 13 Pulse Oximetry 99 98 98 08/18/18 12:00 Temperature 98.3 F Pulse Rate 102 H Respiratory Rate 17 Pulse Oximetry 99 Intake & Output 08/17/18 08/18/18 08/18/18 18:59 06:59 18:59 Intake Total 2049 1165 / 1165 1200 / 1200 Output Total 1200 / 1200 1250 / 1250 Balance 850 / 850 -85 / -85 1200 / 1200 Weight 83.5 kg Intake: IV 2049 1165 / 1165 1200 / 1200 Levophed Inj 16 MG In NS Inj 250 / 250 300 / 300 234 ML @ 2 MCG/MIN 1.87 mls/hr IV.CONT TITRATE PRN Rx#: [id number] Neosynephrine Inj 160 MG In NS 500 / 500 500 / 500 500 / 500 Inj 484 ML @ 40 MCG/MIN 7.5 mls /hr IV.CONT TITRATE PRN Rx#: [id number] Diprivan 1000 mg/100 ml Inj 1, 0 / 0 000 mg In 100 ml @ 5 MCG/KG/MIN 2.508 mls/hr IV.CONT TITRATE PRN Rx#:[id number] Pitressin Inj 40 UNIT In NS Inj 100 / 100 100 / 100 98 ML @ 0.04 UNITS/MIN 6 mls/ hr IV.CONT CONT MERON Rx#: [id number] Prostaphlin Inj 2 GM In NS Inj 200 / 200 315 / 315 100 / 100 100 ML @ 200 mls/hr IV.SIG Q4H MERON Rx#:[id number] NS Inj 1,000 ML @ Wide Open IV. 1000 / 1000 SIG BOLUS ONE Rx#:[id number] Ancef Inj 1,000 MG In NS Inj 100 / 100 100 ML @ 200 mls/hr IV.SIG Q8H MERON Rx#:[id number] fentaNYL 10 mcg/mL Premix Drip 250 / 250 200 / 200 2,500 mcg In 250 ml @ 50 MCG/HR 5 mls/hr IV.SIG TITRATE PRN Rx #:[id number] Output: Urine Amount (Catheter) 1200 / 1200 1250 / 1250 Indwelling Urethral Catheter 1200 / 1200 1250 / 1250 Gastric Drainage 0 / 0 Oral Orogastric Tube 0 / 0 Other: Date of Last Bowel Movement 08/16/18 # Bowel Movements 0 Results Procedures completed during hospitalization: None Labs on day of discharge: Labs from last 24 hours 08/18/18 08/18/18 08/18/18 10:37 08:24 03:47 Puncture Site Patient Temperature O2 Saturation ABG pH ABG pCO2 ABG pO2 ABG HCO3 ABG O2 Content ABG Base Excess ABG Methemoglobin Hemoglobin Carboxyhemoglobin O2 Delivery Device Vent Setting Inspired O2 Critical Value POC Glucose 207 H 188 H Vancomycin Trough 4.0 L 10/25/18 10/25/18 10/24/18 23:57 20:08 05:39 Puncture Site Right brachial Patient Temperature 98.6 O2 Saturation 95 ABG pH 7.46 H ABG pCO2 30 L ABG pO2 94 ABG HCO3 21 L ABG O2 Content 12.2 ABG Base Excess -2.2 L ABG Methemoglobin 1.6 Hemoglobin 9.0 L Carboxyhemoglobin 1.1 O2 Delivery Device Bipap Vent Setting Ipap 10/ epap 5 Inspired O2 50 Critical Value No POC Glucose 256 H 253 H Vancomycin Trough Preliminary micro results at discharge 08/16/18 19:11 Sputum Culture - Preliminary Sputum - Endotracheal Staphylococcus aureus 08/16/18 14:30 Anaerobic Blood Culture - Preliminary Blood - Peripheral No growth in 2 days - Impressions ITS Impressions Abdomen/Pelvis CT 08/02/18 04:01 CONCLUSION: 1. 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 2. Nonacute findings include severe atherosclerotic disease, cholelithiasis, stable complex cystic lesion of the left kidney measuring 6.5 cm, and cirrhotic liver. Humerus CT 08/11/18 00:00 CONCLUSION: 1. Nonacute appearing right-sided rib fractures. 2. No evidence for humerus fracture. 3. Note is made of ascites in the upper abdomen. Cervical Spine CT 08/12/18 00:00 CONCLUSION: 1. Degenerative disc change at C5-C6 with broad-based disc osteophyte complex with mass effect on the anterior thecal sac. This comes in close contact with the anterior cord which is poorly visualized. 2. Mild anterior spondylolisthesis of C4 on C5 approximately 2 mm. There is mild retrolisthesis of C5 on C6. 3. Mild disc osteophyte complex at C3-4. 4. Narrowing of the left neural foramina at C2-3 and C3-4 levels as well as narrowing of the right neural foramina at C5-6. Neck Ultrasound 08/15/18 00:00 CONCLUSION: 1. Unremarkable study. Abdomen/Bladder Ultrasound 08/16/18 00:00 CONCLUSION: 1. Limited examination secondary to bowel gas. 2. No evidence for obstructive uropathy. 3. Mildly echogenic kidneys consistent with medical renal disease. 4. 4.9 cm possible cyst in the inferior pole the right kidney which was not noted on recent CT exam and not demonstrated on sagittal images. Uncertain if this is artifactual. 5. Redemonstration of complex 4.4 cm cyst in the inferior pole of the left kidney. Head CT 08/16/18 00:00 CONCLUSION: 1. Senescent changes without acute intracranial abnormality. . Soft Tissue Neck CT 08/16/18 00:00 CONCLUSION: 1. Asymmetrical enlargement of the left parotid gland with mild diffuse stranding consistent with mild left parotiditis. 2. Bulky bilateral carotid artery plaque. Chest X-Ray 08/17/18 06:00 CONCLUSION: Cardiomegaly. Basilar areas of mild consolidation or atelectasis. Discharge Plan - Discharge Disposition Patient Disposition: 20 - Discharge Details Date/Time: 08/18/18 15:40 - Physicians Team Primary Care Provider: UNKNOWN, Attending Provider: Bola Alvarado Other Providers: Benedicto Emery MD ; Car Doherty MD ; Gunnar Manzanares MD ; Khalif Nation DO ; Jarrod Greene MD ; Handy Boateng MD ; Chuck Church MD ; Ant Gomez MD
== END 2018-08-18 15:40 | disposition expired ==
LOC: NEPE 03:07 → NEDA 04:04 → HIMC 06:40 → HCIN 08-12 19:32 → N03 08-16 06:46
PROVIDERS: ADMIT Internal Medicine Critical Care Medicine; ATTEND Internal Medicine Critical Care Medicine